=== PATIENT | female | born 1945 | race African-American/Black ===

== ENCOUNTER 2017-09-23 16:34 | Emergency (ER) | payer MEDICARE, SELFPAY ==
[2017-09-23 16:35] VITALS: BP 206/85; PULSE 74; RESP 16; TEMP 37; O2SAT 100; BMI 25.7
[2017-09-23] MEDS: Acetaminophen 325 MG Tablet 650 MG PO (17:21)
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
[2017-09-23 18:18] VITALS: RESP 18
== END 2017-09-23 18:19 | disposition home or self-care (01) ==
PROVIDERS: Emergency Provider Emergency Medicine; Family Provider Student in an Organized Health Care Education/Training Program; PCP Student in an Organized Health Care Education/Training Program
DX: S39.012A Strain of muscle, fascia and tendon of lower back, initial encounter (principal); V54.6XXA Passenger in pick-up truck or van injured in collision with heavy transport vehicle or bus in traffic accident, initial encounter; Y93.9 Activity, unspecified; Y92.9 Unspecified place or not applicable; E11.9 Type 2 diabetes mellitus without complications; Z90.49 Acquired absence of other specified parts of digestive tract; Z79.82 Long term (current) use of aspirin; Z79.84 Long term (current) use of oral hypoglycemic drugs
CPT/HCPCS: 72100; 99283

== ENCOUNTER → 2020-01-04 09:16 | Outpatient (CLI) | payer MEDICARE, SELFPAY ==
--- NOTE | 2020-01-04 09:24 | BI_ITS ---
MAMMOGRAPHY - BILATERAL DIAGNOSTIC REASON FOR EXAM: Female, 74 years old. 2 week history of right breast lump. PERTINENT HISTORY: Non-contributory. TECHNIQUE: Digital bilateral breast uyen (3D mammographic acquisition) in the CC and MLO projections. 2-D mediolateral oblique (MLO) and craniocaudad (CC) views of both breasts were obtained. CAD: Full Field Digital Mammography with Computer Added Detection was performed. COMPARISON: No comparison mammograms available at this time. If any prior films become available, an addendum to this report can be generated. FINDINGS: Breast Composition: The breasts are heterogeneously dense, which may obscure small masses. The palpable abnormality corresponds to a 1.9 cm x 1.1 cm nodule in the anterior upper lateral portion of the right breast. Correlation with ultrasound is recommended. Small benign-appearing bilateral axillary lymph nodes. No other significant abnormalities are identified. BI/DIAG MAMM W/CAD, BILAT IMPRESSION: The top of the abnormality corresponds to a 1.9 cm x 1.1 cm relatively well-defined nodule in the anterior upper lateral portion of the right breast. Correlation with ultrasound is recommended for further evaluation. ASSESSMENT CATEGORY: BIRADS Category 0: Incomplete. Need additional imaging evaluation. A letter regarding these results will be sent to the patient by the facility within 30 days. Approximately 10% of breast cancers are not detected by mammography. A normal mammogram should not delay biopsy of a clinically suspicious abnormality. Electronically Signed: Sam Baeza, at 10:25 EST , Service support ,
--- NOTE | 2020-01-04 09:24 | US_ITS ---
STUDY: ULTRASOUND BREAST - RIGHT REASON FOR EXAM: Female, 74 years old. Palpable lump in the right breast. TECHNIQUE: Axial and longitudinal images of the RIGHT breast were performed with a high resolution ultrasound transducer. # OF IMAGES: 27 COMPARISON: Comparison is made with prior mammogram done earlier today. FINDINGS: RIGHT Breast: The palpable abnormality corresponds to a 1.4 cm x 1.9 cm x 2.1 cm heterogeneous, irregular complex nodule at the 10 o''clock position of the breast at 10 cm from the nipple. A biopsy is recommended. US/Breast Limited Unilateral IMPRESSION: The palpable abnormality corresponds to a 1.4 cm x 1.9 cm x 2.1 cm complex irregular nodule at the 10 o''clock position of the breast at 10 cm from nipple. A biopsy is recommended. ASSESSMENT CATEGORY: BIRADS Category 4: Suspicious - Biopsy Should Be Considered. A letter regarding these results will be sent to the patient by the facility within 30 days. Electronically Signed: Sam Baeza, at 12:41 EST , Service support ,
== END ==
PROVIDERS: PCP Student in an Organized Health Care Education/Training Program; Referring Provider Nurse Practitioner Family; Visit Provider Nurse Practitioner Family
DX: N63.10 Unspecified lump in the right breast, unspecified quadrant (principal); R92.8 Other abnormal and inconclusive findings on diagnostic imaging of breast
CPT/HCPCS: 76642; 77062; 77066; G0279

== ENCOUNTER 2022-02-20 08:51 | Emergency (ER) | payer MEDICARE, SELFPAY ==
[2022-02-20 08:52] VITALS: BP 196/83; PULSE 72; RESP 18; TEMP 36.6; O2SAT 100; BMI 24.0
--- NOTE | 2022-02-20 09:58 | EDS_ITS ---
HPI HPI - URI History of Present Illness Chief Complaint: Cold Sx Informant: patient Onset/Context/Timing Onset: Days Timing: Continuous Current Severity: Mild Maximum Severity: Mild Associated Symptoms Associated Symptoms: Positive for Myalgias; Negative for Nausea, Vomiting, Shortness of Breath or Productive Cough Narrative Narrative: 76-year-old female history of diabetes and breast cancer. Says on Thursday she started having a hoarse voice with laryngitis. She had chills and sweating. No documented fever. Both her daughter and granddaughter or tested and were positive for influenza A. She denies any vomiting or diarrhea. No dysuria. No trouble swallowing or breathing. Prior similar symptoms: Yes Recent Illness/Hospitalization: No ROS ROS ED ROS Narrative Laryngitis. Chills. Body aches. Review of Systems ROS Unobtainable: Denies due to encephalopathy Constitutional Constitutional ED: Denies chills or fever(s) Eyes Eyes: Denies blurry vision ENT ENT ED: Denies ear pain Cardiovascular Cardiovascular: Denies chest pain Respiratory/Chest Respiratory/Chest: Denies cough or dyspnea Gastrointestinal Gastrointestinal: Denies abdominal pain, constipation, diarrhea, melena, nausea or vomiting Genitourinary Genitourinary ED: Denies dysuria Musculoskeletal Musculoskeletal: Denies arthralgias Integumentary Denies abscess Neurologic Neurologic: Denies headache(s) Psychiatric Psychiatric: Denies anxiety Endocrine Endocrinology: Denies cold intolerance Hematologic/Lymphatic Hematologic/Lymphatic: Denies easy bleeding Allergic/Immunologic Allergic/Immunologic ED: Denies mouth swelling or tongue swelling [facility] Medical History Diabetes Home Medications aspirin 81 mg chewable tablet 81 mg PO DAILY@0800 prophylaxis 01/01/13 [History Last Taken 1 Day Ago ~05/07/16] cyanocobalamin (vitamin B-12) 1,000 mcg/mL oral drops (Vitamin B-12) 1,000 mcg PO DAILY vitamin 01/01/13 [History Last Taken Unknown] enalapril maleate 10 mg tablet (Vasotec) 20 mg PO DAILY BP 01/01/13 [History Last Taken 1 Day Ago ~05/07/16] metformin 500 mg tablet,extended release 24 hr 500 mg PO BID DM 01/01/13 [History Last Taken 1 Day Ago ~05/07/16] crjmrvoaofle-Kt-bdee-minerals (Multiple Vitamin, Womens tablet) 1 ea PO DAILY 09/23/17 [History Last Taken Unknown] Allergy/AdvReac Type Severity Reaction Status Date / Time acetaminophen [From Vicodin] AdvReac Vomiting Verified 02/20/22 08:55 hydrocodone bitartrate AdvReac Vomiting Verified 02/20/22 08:55 [From Vicodin] Social History Smoking Status: Former smoker EXAM Physical Exam Narrative Exam Narrative: 76-year-old female no acute distress. Sitting upright in bed. Clinically looks well. H EENT exam unremarkable. TMs normal. Posterior pharynx normal. Moist because membranes. No stridor or drooling. She does have laryngitis. Neck nontender no lymphadenopathy. Lungs clear to auscultation bilaterally. Heart regular rhythm rate about 70 no murmur. Chest was nontender. Abdomen soft nontender. Back nontender. Moving all 4 extremities. No edema. Neurologically awake and alert with no focal motor deficits. Very benign exam. Const Vital Signs: 02/20/22 08:52 02/20/22 09:43 Temperature 98 F Temperature Source Temporal Pulse Rate 72 Respiratory Rate 18 Respiratory Effort Non-Labored Short of Breath Respiratory Depth Normal Blood Pressure 196/83 H Blood Pressure Mean 120 Pulse Ox 100 Oxygen Delivery Method Room Air Positive well nourished and well developed; Negative for obese, cachectic or contractures General Appearance ED: well developed and NAD; Negative for cachectic, contractures, cyanotic, diaphoretic or pallor Nutritional Appearance: Negative for cachectic or obese HEENT Reports moist mucous membranes; Denies dry mucous membranes normocephalic and atraumatic; Negative for scalp tenderness Face and Sinus: Negative for sinus tenderness Mouth ED: No dry mucous membranes Mouth: No dry mucous membranes Teeth and Gingiva: Negative for caries Throat: posterior oropharynx normal; Negative for tonsils abnormal or posterior oropharynx abnormal Eyes PERRL and EOMs intact bilaterally General Eye ED: Negative for pale conjunctiva or scleral icterus Neck no lymphadenopathy, supple, no meningeal signs and no JVD General: Negative for anterior neck swelling or lymphadenopathy Resp normal respiratory effort and clear to auscultation bilaterally Effort and Inspection: Negative for retractions Auscultation: Negative for rales, rhonchi or wheezes Cardio S2 normal heart sound and no murmurs Rate: regular rate; Negative for bradycardia or tachycardic Rhythm: regular rhythm; Negative for abnormal rhythm GI non-tender, non-distended and no masses Inspection: Negative for abdominal distention Palpation: soft; Negative for tender or guarding Back/Spine no CVA tenderness and normal ROM General Back: Negative for CVA tenderness Cervical Spine: Negative for cervical spine tenderness Thoracic Spine / Upper Back: Negative for thoracic spinal tenderness Lumbar Spine / Lower Back: Negative for lumbar spinal tenderness Sacrum: Negative for tenderness Extremity normal to inspection and full ROM General Extremety ED: Negative for cyanosis or tenderness General Extremity: Negative for cyanosis Neuro No oriented x3 Sensorium / Orientation: alert, oriented to person, oriented to place and oriented to time Sensory Exam: No sensory level loss detected Motor Exam: strength 5/5 throughout and general weakness Psych mental status grossly normal Appearance: Negative for other Attitude: No agitated Mood & Affect: Negative for depressed, anxious or tearful Skin General Skin Exam: Negative for jaundice or pallor Lesions: no lesions Rashes: no rashes Trauma: Negative for abrasion or laceration MDM MDM MDM Narrative Medical decision making narrative: 76-year-old female with viral laryngitis. Exam benign. Lungs clear. Pulse ox 100%. Influenza and COVID swabs are both negative. She will be treated at home for viral syndrome. Fluids and rest. Tylenol and Motrin. She does not need a chest x-ray and labs. Clinically she looks well and is hydrated. Lab Data Attestation: I reviewed the patient's lab results. Lab results narrative: Rapid COVID and influenza swabs negative. Discharge Plan Triage Chief Complaint: Cold Sx ED Provider: Fei Bustamante Dx/Rx/DC Orders Clinical Impression: Viral syndrome, Acute viral laryngitis Instructions: ED Viral Syndrome (Adult) Prescriptions: No Action enalapril maleate [Vasotec] 10 MG tablet 20 mg PO DAILY aspirin 81 MG Tab.Chew 81 mg PO DAILY@0800 metformin 500 MG tablet 500 mg PO BID cyanocobalamin (vitamin B-12) [Vitamin B-12] 1,000 MCG/ML Ml 1,000 mcg PO DAILY azxpqrvbcwro-Yh-exhb-minerals [Multiple Vitamin, Womens] 1 EACH tablet 1 ea PO DAILY Primary Care Provider: Emiliano Pelletier Referrals: Emiliano Pelletier DO [Primary Care Provider] - 1 Week if not improving Activity Restrictions/Additional Instructions: Plenty of fluids and rest. Warm salt water gargling. Tylenol for body aches and fevers. Follow-up with not improving. Return if worse. Disposition Disposition: Home, Self Care
== END 2022-02-20 10:16 | disposition home or self-care (01) ==
PROVIDERS: Emergency Provider Emergency Medicine; PCP Student in an Organized Health Care Education/Training Program; Visit Provider Emergency Medicine
DX: J04.0 Acute laryngitis (principal); E11.9 Type 2 diabetes mellitus without complications; Z79.84 Long term (current) use of oral hypoglycemic drugs; Z87.891 Personal history of nicotine dependence
CPT/HCPCS: 87428; 99282

== ENCOUNTER 2022-03-08 12:26 | Emergency (ER) | payer MEDICARE, SELFPAY ==
[2022-03-08 12:27] VITALS: BP 184/74; PULSE 93; RESP 16; TEMP 36.4; O2SAT 100; BMI 24.0
[2022-03-08 12:42] VITALS: BP 170/71; PULSE 78; RESP 16; O2SAT 98
--- NOTE | 2022-03-08 12:43 | EDS_ITS ---
HPI History of Present Illness HPI Narrative: Patient presents with left shoulder pain that has been getting worse over the past 2 days. Patient states it is gradually gotten worse. Patient denies any trauma or injury. Patient states the pain has been constant. Patient states the pain is aching. Patient states the pain is worse with movement. Patient states it is better with rest and relaxation. Patient admits to some tingling into her fingers of her left hand. Patient denies any weakness. Patient denies any nausea or vomiting. Patient denies any chest pain or shortness of breath. Chief Complaint: Upper Extremity Injury Informant: patient Onset/Context/Timing Onset: Days (2) Context: Gradual Onset Timing: Continuous Quality of Pain: Aching Location: Left shoulder Worsened by: Movement Relieved by: Rest, relaxation Associated Symptoms Associated Symptoms: Positive for Parasthesia; Negative for Weakness or Loss of Funtion [facility] Medical History (Updated 03/08/22 @ 15:[address] Butch Liu, DO) Diabetes Home Medications aspirin 81 mg chewable tablet 81 mg PO DAILY@0800 prophylaxis 01/01/13 [History Last Taken 1 Day Ago ~05/07/16] cyanocobalamin (vitamin B-12) 1,000 mcg/mL oral drops (Vitamin B-12) 1,000 mcg PO DAILY vitamin 01/01/13 [History Last Taken Unknown] enalapril maleate 10 mg tablet (Vasotec) 20 mg PO DAILY BP 01/01/13 [History Last Taken 1 Day Ago ~05/07/16] metformin 500 mg tablet,extended release 24 hr 500 mg PO BID DM 01/01/13 [History Last Taken 1 Day Ago ~05/07/16] kgihbeulujdk-Nk-eauh-minerals (Multiple Vitamin, Womens tablet) 1 ea PO DAILY 09/23/17 [History Last Taken Unknown] ibuprofen 600 mg tablet 600 mg PO Q8H PRN PRN pain #20 TABLETS 03/08/22 [Rx Last Taken Unknown] tramadol 50 mg tablet 50 mg PO Q4H PRN PRN Pain 3 days #20 tabs 03/08/22 [Rx Last Taken Unknown] Allergy/AdvReac Type Severity Reaction Status Date / Time acetaminophen [From Vicodin] AdvReac Vomiting Verified 03/08/22 12:28 hydrocodone bitartrate AdvReac Vomiting Verified 03/08/22 12:28 [From Vicodin] Surgical History (Updated 03/08/22 @ 13:[address] Butch Liu DO) History of coronary artery bypass graft Social History Smoking Status: Former smoker ROS ROS ED Constitutional Constitutional ED: Denies chills or fever(s) Eyes Eyes: Reports blurry vision; Denies diplopia ENT ENT ED: Denies rhinorrhea or sore throat Cardiovascular Cardiovascular: Denies chest pain or palpitations Respiratory/Chest Respiratory/Chest: Denies cough or dyspnea Gastrointestinal Gastrointestinal: Denies nausea or vomiting Genitourinary Genitourinary ED: Denies dysuria or hematuria Musculoskeletal Musculoskeletal: Reports back pain and neck pain Integumentary Denies abscess or rash Neurologic Neurologic: Denies headache(s) or weakness Allergic/Immunologic Allergic/Immunologic ED: Denies mouth swelling or urticaria EXAM Physical Exam Const Vital Signs: 03/08/22 12:27 Temperature 97.6 F L Temperature Source Temporal Pulse Rate 93 Respiratory Rate 16 Blood Pressure 184/74 H Blood Pressure Mean 110 Pulse Ox 100 Oxygen Delivery Method Room Air Positive well nourished and well developed General Appearance ED: well developed HEENT Reports moist mucous membranes Neck supple and no JVD Resp normal respiratory effort and clear to auscultation bilaterally Cardio regular rate, regular rhythm and no murmurs GI normal to inspection, nondistended, normoactive bowel sounds and non-tender Palpation: soft Extremity normal to inspection Extremity Narrative: There is tenderness to palpation over the left shoulder. This reproduces the patient's symptoms. There is no obvious deformity noted. There is no edema or ecchymosis. Radial pulses are equal bilaterally. Sensation was intact to light touch in the radial, median, ulnar, and axillary areas. Strength is 5/5 in the radial, median, and ulnar areas. General Extremety ED: Negative for edema or tenderness General Extremity: Negative for edema Neuro oriented x3, CN's II-XII intact bilaterally and no sensory deficits noted Sensorium / Orientation: alert Motor Exam: strength 5/5 throughout Psych mental status grossly normal Skin no rashes or lesions noted MDM MDM MDM Narrative Medical decision making narrative: Differential diagnosis includes musculoskeletal etiology. I think this is the most likely diagnosis. I do not feel this is cardiac in nature since it is worse with movement and it reproduces her symptoms and it is better with rest. X-rays of the left shoulder will be obtained to look for fracture, dislocation, and degenerative changes. Patient was given a dose of tramadol here. Radiography Diagnostic Testing: X-rays of the left shoulder were obtained. There are 4 views. On my independent interpretation, there is no acute fracture or dislocation. There are chronic changes. There is a calcification in the area superior and lateral to the humeral head. 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 Treatment and Re-Evaluation Narrative: Patient was advised of her findings. Patient was instructed to use ice to the area. Discharge Plan Triage Chief Complaint: Upper Extremity Injury ED Provider: Butch Liu Dx/Rx/DC Orders Clinical Impression: Left shoulder strain, Hypertension Instructions: ED Shoulder Sprain Prescriptions: New ibuprofen 600 mg tablet 600 mg PO Q8H PRN PRN (Reason: pain) Qty: 20 0RF tramadol 50 mg tablet 50 mg PO Q4H PRN PRN (Reason: Pain) 3 Days Qty: 20 0RF No Action enalapril maleate [Vasotec] 10 MG tablet 20 mg PO DAILY aspirin 81 MG tablet,chewable 81 mg PO DAILY@0800 metformin 500 MG tablet 500 mg PO BID cyanocobalamin (vitamin B-12) [Vitamin B-12] 1,000 MCG/ML drops 1,000 mcg PO DAILY znybugzjvssg-Hx-bufg-minerals [Multiple Vitamin, Womens] 1 EACH tablet 1 ea PO DAILY Primary Care Provider: Emiliano Pelletier Referrals: Emiliano Pelletier, [Primary Care Provider] - 5-7 Days Disposition Disposition: Home, Self Care
--- NOTE | 2022-03-08 14:30 | RAD_ITS ---
STUDY: X-RAY - LEFT SHOULDER REASON FOR EXAM: Female, 76 years old. PAIN, LIFTING AND PULLING INJURY TECHNIQUE: 4 view(s) of the shoulder. COMPARISON: None. FINDINGS: There is mild degenerative arthrosis of the glenohumeral articulation. Normal acromioclavicular joint. Normal acromion. Moderate foci of crescentic calcification at the greater tuberosity insertion site is compatible with sequela of calcific tendinitis. Normal humeral head and visualized proximal humerus. The soft tissue structures are unremarkable. There is no demonstrated fracture. Normal visualized pulmonary apex. RAD/Shoulder min 2 Views IMPRESSION: 1. No acute fracture of the shoulder Electronically Signed: Mick Guerrero MD at 14:55 EST ,
[2022-03-08] MEDS: traMADol 50 MG Tablet PO (14:38)
== END 2022-03-08 16:00 | disposition home or self-care (01) ==
PROVIDERS: Emergency Provider Emergency Medicine; PCP Student in an Organized Health Care Education/Training Program; Visit Provider Emergency Medicine
DX: S46.912A Strain of unspecified muscle, fascia and tendon at shoulder and upper arm level, left arm, initial encounter (principal); E11.9 Type 2 diabetes mellitus without complications; X58.XXXA Exposure to other specified factors, initial encounter; M54.9 Dorsalgia, unspecified; M54.2 Cervicalgia; I10 Essential (primary) hypertension; Z87.891 Personal history of nicotine dependence; Z79.82 Long term (current) use of aspirin; Z79.84 Long term (current) use of oral hypoglycemic drugs; Z79.899 Other long term (current) drug therapy; Z95.1 Presence of aortocoronary bypass graft
CPT/HCPCS: 73030; 99283

== ENCOUNTER 2022-09-30 16:55 | Emergency (ER) | payer MEDICARE, SELFPAY ==
[2022-09-30 16:55] VITALS: BP 200/85; PULSE 87; RESP 18; TEMP 36.4; O2SAT 99; BMI 23.6
--- NOTE | 2022-09-30 17:50 | RAD_ITS ---
INDICATION: INJURY EXAMINATION/TECHNIQUE: X-RAY - RIGHT XR Foot 3 VIEWS COMPARISON: FINDINGS: SOFT TISSUES: No soft tissue swelling or gas. No radiopaque foreign body. Vascular calcifications. BONES/JOINTS: Possible injury of the proximal phalanx second toe of questionable age. Plantar calcaneal spurring.. Normal alignment. Preservation of the joint space.. No sclerotic or destructive changes observed. RAD/Foot min 3 Views IMPRESSION: Possible injury of the proximal phalanx second toe of questionable age. Electronically Signed: Garo Allen DO at 18:08 EDT ,
[2022-09-30 20:33] VITALS: RESP 16
[2022-09-30 20:52] VITALS: BP 216/83
--- NOTE | 2022-09-30 20:53 | EDS_ITS ---
HPI History of Present Illness Chief Complaint: Laceration Informant: patient Narrative Narrative: Patient is a 76-year-old female presenting with injury to her right foot. Patient was wearing house slippers. She dropped a cast iron skillet onto her foot. She started bleeding immediately from the wound on the top of her foot. She was able to get the bleeding to stop. She came in for further evaluation. She has no other complaints at this time. Denies any numbness or tingling. Denies any significant pain except just at the laceration site. Was noted to be hypertensive on arrival but denies any chest pain, shortness of breath or difficulty breathing. Patient takes 81 mg aspirin daily. Tetanus Immunization: Unknown [facility] Medical History Diabetes Home Medications aspirin 81 mg chewable tablet 81 mg PO DAILY@0800 prophylaxis 01/01/13 [History Last Taken 1 Day Ago ~05/07/16] cyanocobalamin (vitamin B-12) 1,000 mcg/mL oral drops (Vitamin B-12) 1,000 mcg PO DAILY vitamin 01/01/13 [History Last Taken Unknown] enalapril maleate 10 mg tablet (Vasotec) 20 mg PO DAILY BP 01/01/13 [History Last Taken 1 Day Ago ~05/07/16] metformin 500 mg tablet,extended release 24 hr 500 mg PO BID DM 01/01/13 [History Last Taken 1 Day Ago ~05/07/16] xzsiurmzxoei-Nq-zmao-minerals (Multiple Vitamin, Womens tablet) 1 ea PO DAILY 09/23/17 [History Last Taken Unknown] ibuprofen 600 mg tablet 600 mg PO Q8H PRN PRN pain #20 TABLETS 03/08/22 [Rx Last Taken Unknown] tramadol 50 mg tablet 50 mg PO Q4H PRN PRN Pain 3 days #20 tabs 03/08/22 [Rx Last Taken Unknown] Allergy/AdvReac Type Severity Reaction Status Date / Time acetaminophen [From Vicodin] AdvReac Vomiting Verified 09/30/22 16:58 hydrocodone bitartrate AdvReac Vomiting Verified 09/30/22 16:58 [From Vicodin] Surgical History History of coronary artery bypass graft Social History Smoking Status: Former smoker ROS ROS ED Constitutional Constitutional ED: Denies chills or fever(s) Cardiovascular Cardiovascular: Denies chest pain Gastrointestinal Gastrointestinal: Denies nausea or vomiting Musculoskeletal Musculoskeletal: Denies arthralgias or myalgias Integumentary Reports other Details: right foot laceration Neurologic Neurologic: Denies headache(s) or weakness Hematologic/Lymphatic Hematologic/Lymphatic: Denies easy bleeding or easy bruising EXAM Physical Exam Const Vital Signs: 09/30/22 16:55 09/30/22 20:33 09/30/22 20:52 Temperature 97.5 F L Temperature Source Temporal Pulse Rate 87 Respiratory Rate 18 16 Blood Pressure 200/85 H 216/83 H Blood Pressure Mean 123 127 Pulse Ox 99 Oxygen Delivery Method Room Air 09/30/22 22:41 Temperature Temperature Source Pulse Rate Respiratory Rate 18 Blood Pressure Blood Pressure Mean Pulse Ox Oxygen Delivery Method Positive well nourished and well developed General Appearance ED: well developed and NAD HEENT Reports moist mucous membranes Neck supple Resp normal respiratory effort and clear to auscultation bilaterally Cardio regular rate, regular rhythm and no murmurs Cardio Narrative: 2+ DP pulses Extremity normal to inspection and full ROM Extremity Narrative: Right foot?no pinpoint point tenderness, no deformity, normal range of motion Skin Skin Narrative: 2 cm linear laceration to the dorsum of the right foot. The medial centimeter is a superficial abrasion and the lateral centimeter is a partial-thickness laceration with well approximated edges do separate slightly with tension. MDM MDM MDM Narrative Medical decision making narrative: Patient is evaluated for injury to her right foot. A protocol x-ray obtained shows a possible injury to the proximal phalanx second toe questionable age. She is not tender in this area and this is not where her injury is. Tetanus will be updated. Wound to be cleansed. We will recheck the patient's blood pressure however I believe this is asymptomatic hypertension. Wound repair options discussed such as sutures versus Dermabond. She has since again and I worry that the sutures will pull out. She is agreeable to Dermabond. Given wound care precautions as well as return precautions. Due to mechanism injury do not think she requires antibiotics. Radiography Diagnostic Testing: Clinical Impression(s) from Imaging Studies Foot X-Ray 09/30/22 17:50 IMPRESSION: Possible injury of the proximal phalanx second toe of questionable age. Electronically Signed: Garo Allen DO at 18:08 EDT Reading Location ID and State: [facility] / [place] Tel [phone], Service support , Discharge Plan Triage Chief Complaint: Laceration ED Provider: Maria Guadalupe Rocha Dx/Rx/DC Orders Clinical Impression: Need for Tdap vaccination, Laceration of foot, right Instructions: ED Laceration: Skin Adhesive Prescriptions: No Action enalapril maleate [Vasotec] 10 MG tablet 20 mg PO DAILY aspirin 81 MG tablet,chewable 81 mg PO DAILY@0800 metformin 500 MG tablet 500 mg PO BID Vitamin B-12 1,000 MCG/ML drops 1,000 mcg PO DAILY Multiple Vitamin, Womens 1 EACH tablet 1 ea PO DAILY ibuprofen 600 mg tablet 600 mg PO Q8H PRN PRN (Reason: pain) Qty: 20 0RF tramadol 50 mg tablet 50 mg PO Q4H PRN PRN (Reason: Pain) 3 Days Qty: 20 0RF Primary Care Provider: Emiliano Pellteier Referrals: Emiliano Pelletier DO [Primary Care Provider] - Activity Restrictions/Additional Instructions: Avoid applying any antibiotic ointment such as triple antibiotic ointment or bacitracin as it will dissolve the glue. Gently clean with soap and water as needed. The glue should flake off itself within the next week or so. If you d evelop increased pain, drainage or redness please return to the emergency room. Disposition Disposition: Home, Self Care Discharge Date/Time: 09/30/22 22:44
[2022-09-30] MEDS: Diphth,Pertuss(Acell),Tet Vac 0.5 ML Vial IM (22:33)
[2022-09-30 22:41] VITALS: RESP 18
== END 2022-09-30 22:44 | disposition home or self-care (01) ==
PROVIDERS: Emergency Provider Emergency Medicine; PCP Student in an Organized Health Care Education/Training Program; Visit Provider Emergency Medicine
DX: S99.921A Unspecified injury of right foot, initial encounter (principal); E11.9 Type 2 diabetes mellitus without complications; Z87.891 Personal history of nicotine dependence; Z79.84 Long term (current) use of oral hypoglycemic drugs; Z23 Encounter for immunization; W22.8XXA Striking against or struck by other objects, initial encounter
CPT/HCPCS: 12001; 73630; 90471; 90715; 99282

== ENCOUNTER 2023-12-14 12:30 | Inpatient (IN) | payer MEDICARE, SELFPAY ==
[2023-12-14] VITALS (7 sets, daily range): BP systolic 152–196; BP diastolic 65–106; PULSE 79–84; RESP 17–24; TEMP 36.2–37.1; O2SAT 95–100; BMI 21.3
--- NOTE | 2023-12-14 15:36 | CT_ITS ---
STUDY: CT ABDOMEN AND PELVIS WITH CONTRAST REASON FOR EXAM: Female, 78 years old. back pain, vomiting, breast mass RADIATION DOSAGE (If Supplied By Facility): CTDIvol = ( 8.98 ) mGy, DLP = ( 878.98 ) mGycm TECHNIQUE: Transaxial images were obtained from the dome of the diaphragm to the symphysis pubis without oral contrast. IV 100mL Isovue-370 was administered. Sagittal and coronal images were reconstructed. Individualized dose optimization techniques were used for this CT. COMPARISON: None. FINDINGS: Large right breast mass is noted. Heart size is normal. There is small pericardial effusion and coronary artery calcium. Liver is normal size. There is a small nodule in the right lobe likely metastatic. Bile ducts are not dilated. Normal gallbladder and extrahepatic biliary system. Normal spleen. Normal pancreas. Normal bilateral adrenal glands. There is mild dilatation of the right renal collecting system with markedly concentric thickening of the blount of the ureter to the level of the pelvis where there is a large complex right adnexal mass. Normal left kidney. There is thickening of the gastric folds and blount of stomach with narrowing at the gastroduodenal junction consistent with nonspecific gastroduodenitis. Normal small intestine. Normal colon. The appendix is visualized and appears normal. Atherosclerotic changes of the aorta without evidence for aneurysm. Normal inferior vena cava. Normal retroperitoneum. Normal urinary bladder. There is a small amount of free fluid in the pelvis Normal abdominal wall. Lumbar spine demonstrates mild spondylosis Lytic destructive lesion of T9 noted consistent with metastasis CT/Abdomen/Pelvis W IV Cont ONLY IMPRESSION: Findings consistent with nonspecific gastroduodenitis. 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
--- NOTE | 2023-12-14 15:36 | CT_ITS ---
STUDY: CTA CHEST REASON FOR EXAM: Female, 78 years old. right sided chest pain, breast mass RADIATION DOSAGE (If Supplied By Facility): CTDIvol = ( 8.98 ) mGy, DLP = ( 878.98 ) mGycm TECHNIQUE: The examination was performed with the intravenous administration of IV 100mL Isovue-370. Post-processing of the angiographic images was performed, with multiplanar reformation and 3D reconstruction. Individualized dose optimization techniques were used for this CT. COMPARISON: None. FINDINGS: Normal enhancement of the main pulmonary artery and right and left pulmonary arteries. Normal enhancement of the bilateral peripheral pulmonary arteries. There is no demonstrated pulmonary embolism. Mild atherosclerotic change of the aorta without evidence for aneurysm. There is no demonstrated aortic dissection. Heart is mildly enlarged. There is small pericardial effusion and multifocal coronary artery calcification. Normal mediastinum. Normal hilar regions. Normal visualized trachea and bronchi. The lungs are well expanded. Normal pulmonary parenchyma. Normal pleura. There is a large mass in the right breast as well as diffuse edematous changes as well as multiple mildly enlarged axillary node There is a large destructive lesion involving the right lateral body of T9 involving the posterior arch and the right ribs with probable tumor invasion of the spinal canal consistent with metastatic disease.. There is also destructive lesion involving the right scapula also metastatic Normal visualized upper abdomen. CT/CTA Chest W/WO Contrast IMPRESSION: No acute cardiopulmonary pathology ASHD without evidence for aortic aneurysm or dissection.. No evidence for pulmonary embolus Findings consistent with known right breast carcinoma, axillary nodes right scapular metastasis and extensive metastasis of T9 with probable spinal canal invasion of tumor. MRI with contrast would be helpful for more definitive evaluation Electronically Signed: Kwaku Carrillo MD at 18:54 EDT ,
--- NOTE | 2023-12-14 15:37 | EKG12_ITS ---
Test Reason : CHEST PAIN Blood Pressure : / mmHG Vent. Rate : 090 BPM Atrial Rate : 090 BPM P-R Int : 198 ms QRS Dur : 066 ms QT Int : 320 ms P-R-T Axes : 036 -08 071 degrees QTc Int : 391 ms Normal sinus rhythm Low voltage QRS Cannot rule out Anterior infarct , age undetermined Abnormal ECG Confirmed by JUAN DIEGO KNIGHT, IZA ([id number]), mapping editor KANDIS STEPHENS ([id number]) on 12/15/2023 8:03:42 AM Referred By: Confirmed By:IZA ADAMSON MD
--- NOTE | 2023-12-14 15:42 | ED.VIS.CHEST ---
HPI History of Present Illness Chief Complaint: Chest Other Informant: patient Narrative Narrative: Patient is a 78 year old female with history of untreated right sided breat cancer presenting for worsening right-sided pain, breast pain and back pain. Patient lives at home with her son. Her PCP has prescribed her oxycodone. She notes that she is been having worsening pain over the past 2 months. She has been having increasing pain and has had to go up on her Tylenol and oxycodone. She states that yesterday she took 2 exercise Tylenol and three 5 mg oxycodone. She notes that she has had about a 15 pound unintentional weight loss has not been eating or drinking well. Denies night sweats currently. Does report that she has had lightheadedness and dizziness. Saw her PCP 5 days ago for worsening right sided flank pain which was thought to be secondary to breast cancer. In the notes (reviewed on [employer]) she had been referred to oncology and surgery as well as a breast surgeon over the past 5 years but had declines any type of intervention. Per the notes she is not interested in any type of chemotherapy or radiation but is considering seeing breast surgery/general surgery for options. Is having more pain. Was not willing to consider palliative or hospice care. Was prescribed oxycodone 5 mg for pain control. States yesterday she did have an episode of vomiting but thinks is because she took her medication on empty stomach. Does had some nausea. Does not report any black or blood in her stool. [facility] Medical History (Updated 12/15/23 @ 00:[address] Maria Guadalupe Rocha, DO) Hypertension Breast cancer Diabetes Home Medications ?Medication ?Instructions ?Recorded ?Last Taken ?Type aspirin 81 mg chewable tablet 81 mg PO DAILY@0800 prophylaxis 01/01/13 1 Day Ago History ~05/07/16 cyanocobalamin (vitamin B-12) 1,000 mcg PO DAILY vitamin 01/01/13 Unknown History 1,000 mcg/mL oral drops (Vitamin B-12) fasieorhrosd-Fc-yrbo-minerals 1 ea PO DAILY 09/23/17 Unknown History (Multiple Vitamin, Womens tablet) ibuprofen 600 mg tablet 600 mg PO Q8H PRN PRN pain #20 03/08/22 Unknown Rx TABLETS tramadol 50 mg tablet 50 mg PO Q4H PRN PRN Pain 3 days 03/08/22 Unknown Rx #20 tabs enalapril maleate 20 mg tablet 20 mg PO BID BP 12/14/23 Unknown History ferrous sulfate 140 mg (45 mg 140 mg PO DAILY SUPPLEMENT 12/14/23 Unknown History iron) tablet,extended release (Slow Release Iron) meloxicam 15 mg tablet 15 mg PO DAILY PRN pain 12/14/23 Unknown History metformin 1,000 mg tablet 1,000 mg PO BID DM 12/14/23 Unknown History oxycodone 5 mg tablet 5 mg PO Q8H PRN PRN severe pain 12/14/23 Unknown History Allergy/AdvReac Type Severity Reaction Status Date / Time acetaminophen (From Vicodin) AdvReac Vomiting Verified 12/14/23 12:38 hydrocodone bitartrate (From AdvReac Vomiting Verified 12/14/23 12:38 Vicodin) Surgical History History of coronary artery bypass graft Social History household members: family Smoking Status: Former smoker ROS ROS ED Constitutional Constitutional ED: Reports weight loss; Denies chills or fever(s) ENT ENT ED: Denies sore throat Cardiovascular Cardiovascular: Reports as per HPI and chest pain; Denies palpitations or racing heartbeat Respiratory/Chest Respiratory/Chest: Reports dyspnea; Denies cough Gastrointestinal Gastrointestinal: Reports nausea and vomiting Musculoskeletal Musculoskeletal: Reports back pain and myalgias Integumentary Reports rash Neurologic Neurologic: Reports weakness; Denies paresthesias Hematologic/Lymphatic Hematologic/Lymphatic: Denies easy bleeding or easy bruising EXAM Physical Exam Const Vital Signs: 12/14/23 12:31 12/14/23 15:34 12/14/23 15:35 Temperature 97.2 F L Temperature Source Temporal Pulse Rate 82 82 Respiratory Rate 20 H 24 H Respiratory Effort Normal Non-Labored Blood Pressure 186/100 H 180/71 H Blood Pressure Mean 128 107 Pulse Ox 100 Oxygen Delivery Method Room Air 12/14/23 17:08 12/14/23 19:00 12/14/23 20:39 Temperature 98.8 F Temperature Source Pulse Rate 84 79 79 Respiratory Rate 17 18 17 Respiratory Effort Blood Pressure 152/106 H 196/77 H 163/75 H Blood Pressure Mean 121 116 104 Pulse Ox 95 95 95 Oxygen Delivery Method Room Air Room Air 12/14/23 21:00 Temperature Temperature Source Pulse Rate 82 Respiratory Rate 18 Respiratory Effort Blood Pressure 165/65 H Blood Pressure Mean 98 Pulse Ox 95 Oxygen Delivery Method Room Air Positive well nourished Constitutional Narrative: Frail, uncomfortable appearing HEENT Reports dry mucous membranes normocephalic and atraumatic Mouth ED: Yes dry mucous membranes Mouth: dry mucous membranes Eyes PERRL and EOMs intact bilaterally Neck supple and no JVD Chest Wall Chest Narrative: Patient has pewter orange appearance to the right outer lower quadrant of the breast. On palpation there are multiple hard firm nonmobile masses. This is highly concerning for metastat her breast cancer. Resp normal respiratory effort and clear to auscultation bilaterally Cardio regular rate, regular rhythm and no murmurs GI normal to inspection, nondistended, normoactive bowel sounds, soft to palpation and non-tender Back/Spine no CVA tenderness Back/Spine Narrative: Lumbar tenderness at approximately L1-L4 Cervical Spine: Negative for cervical spine tenderness Extremity normal to inspection General Extremety ED: Negative for edema or pulses abnormal General Extremity: Negative for edema or pulses abnormal Neuro oriented x3 Sensorium / Orientation: awake and alert Motor Exam: general weakness Skin Skin Narrative: Erythema but no warmth and dimpling of the skin of the right lower outer breast MDM MDM MDM Narrative Medical decision making narrative: Patient's evaluated for worsening right sided chest/breast pain. Has a history of breast cancer does not been treated and physical exam highly concerning for advanced breast cancer. Patient also clinically appears dehydrated with dry mucosal membranes. Vital signs significant for hypertension which does appear to be chronic for the patient. Will give the patient small bolus of IV fluids, morphine and Zofran and obtain CT imaging to evaluate for pulmonary emboli as well as masses as I suspect this is the cause of her pain. Patient is redosed with pain medication. She is resting more comfortably now. CBC shows a mild microcytic anemia with a hemoglobin of 10.8. CMP largely normal. Urinalysis showed [address] imaging does show a large of breast mass with what looks to be metastatic axillary nodes, right scapular metastasis and extensive processes of T9 with probable spinal Involvement of tumor. In addition CT of abdomen shows what appears to be hepatic metastasis, compression of the right ureter possibly due to metastatic disease or due to extrinsic compression from a complex cystic mass of the right adnexa. I reviewed the results with the patient and her daughter. Discussed goals of care. At this point patient does not really seem to know what she wants except that she would like to be able to function at home again. She is interested in social work resources. She wants to know if surgery is an option as she was opposed to see Dr. Griffin today but did not make the appointment. I spoke with Dr. Briceno as patient does not seem to be established with [facility] oncology for this. He states he be happy see the patient on consult. I spoke with Dr. Calderon who states that if needed she could do a bedside biopsy for definitive diagnosis. Discussed with patient's options include hospice evaluation, palliative care, palliative chemoradiation and possibly more aggressive treatment however not certain if that would be recommended given her advanced disease. Patient verbalized agreement understand with this. At this time she does not feel safe going home especially due to her degree of pain and unable to care for herself and will require admission. Case customization, Dr. Chappell. History & Record Review Additional record(s) reviewed:: Prior outpatient record Lab Data Attestation: I reviewed the patient's lab results. Labs: Laboratory Results - last 24 hr 12/14/23 12/14/23 12/14/23 16:06 17:51 20:55 WBC 6.6 RBC 4.10 L Hgb 10.8 L Hct 34.3 L MCV 83.7 MCH 26.3 L MCHC 31.5 L RDW Std Deviation 46.2 H RDW Coeff of Annika 15.0 H Plt Count 334 MPV 10.2 Immature Gran % (Auto) 0.200 Neut % (Auto) 60.2 Lymph % (Auto) 31.8 Cassia % (Auto) 6.6 Eos % (Auto) 0.9 Baso % (Auto) 0.3 Absolute Neuts (auto) 4.0 Absolute Lymphs (auto) 2.11 Nucleated RBC % 0 PT 12.8 INR 1.0 Sodium 137 Potassium 4.1 Chloride 107 Carbon Dioxide 24.0 Anion Gap 6 BUN 12 Creatinine 0.70 Est GFR (MDRD) Af Amer 104 Est GFR (MDRD) Non-Af 86 BUN/Creatinine Ratio 17.2 Glucose 113 H Calcium 10.0 Total Bilirubin 0.40 AST 27 ALT 17 Alkaline Phosphatase 84 Troponin I High Sens 30 Total Protein 8.1 Albumin 3.7 Globulin 4.4 H Albumin/Globulin Ratio 0.8 L Urine Color Yellow Urine Clarity Clear Urine pH 7.0 Ur Specific [place] 1.005 Urine Protein 15 H Urine Glucose (UA) Normal Urine Ketones 5 H Urine Occult Blood Negative Urine Nitrite Negative Urine Bilirubin Negative Urine Urobilinogen Normal Ur Leukocyte Esterase Negative Urine RBC 0 SEEN Urine WBC 0 SEEN Ur Squamous Epith Cells 0 SEEN Urine Bacteria 0 SEEN Urine Mucus 0 SEEN Radiography Diagnostic Testing: Clinical Impression(s) from Imaging Studies Abdomen/Pelvis CT 12/14/23 15:36 IMPRESSION: Findings consistent with nonspecific gastroduodenitis. No evidence for small bowel obstruction Mild right renal dilatation secondary to markedly narrowed ureter due to thickening of the blount possibly metastatic or due to extrinsic compression by complex cystic mass right in the adnexa Probable small hepatic metastasis which may be further assessed with MRI if indicated Electronically Signed: Kwaku Carrillo MD at 19:06 EDT , Chest CTA 12/14/23 15:36 IMPRESSION: No acute cardiopulmonary pathology ASHD without evidence for aortic aneurysm or dissection.. No evidence for pulmonary embolus Findings consistent with known right breast carcinoma, axillary nodes right scapular metastasis and extensive metastasis of T9 with probable spinal canal invasion of tumor. MRI with contrast would be helpful for more definitive evaluation Electronically Signed: Kwaku Carrillo MD at 18:54 EDT , Rhythm Strip Rhythm Strip: Sinus Rhythm Rate: 90 Ectopy: None EKG Initial EKG: Attestation: I personally reviewed and interpreted this EKG as follows: Interpretation: Sinus Rhythm Comments: Normal sinus rhythm at a rate of 90 bpm Normal axis Normal intervals Low voltage QRS Normal ST segments Prior EKG tracings: available for review Prior: Unchanged (Patient no longer tachycardic) Management Discussion w/another healthcare provider: Hospitalist and Twister Tender Discharge Plan Dx/Rx/DC Orders Clinical Impression: Cancer related pain, Metastatic disease, Physical debility Disposition Disposition: Acute Care Hospital [facility] Discharge Date/Time: 12/14/23 21:51
[2023-12-14] MEDS: 0.9% Normal Saline (500mL Bag) 500 ML 1000 ML IV (16:05)
[2023-12-14] MEDS: Morphine 4 MG/ML Syringe IV ×2 (16:06→19:28)
[2023-12-14] MEDS: Ondansetron 4 MG/2 ML Vial IV ×2 (16:06→19:28)
[2023-12-14 16:14] LABS: Absolute Lymphocyte Count 2.11 X10^3/uL (0.83-4.51); Basophil# 0.02 X10^3/uL; Basophil% 0.3 % (0-1); Eosinophil# 0.06 X10^3/uL; Eosinophils% 0.9 % (0-5); Hematocrit 34.3 % (37-47); Hemoglobin 10.8 g/dL (12.0-15.0); Lymphocyte # 2.11 X10^3/ul (0.83-4.51); Lymphocyte % 31.8 % (19-41); Mean Corp Hgb Conc 31.5 g/dL (32-36); Mean Corpuscular Hgb 26.3 pg (27.0-32.0); Mean Corpuscular Volume 83.7 fL (81-99); Mean Platelet Vol. 10.2 fl (6.2-12.0); Monocyte# 0.44 X10^3/uL; Monocyte% 6.6 % (0-10); NRBC Flagged by Analyzer 0 % (0-5); Neutrophil # 3.99 X10^3/uL (2.7-7.7); Neutrophil % 60.2 % (47-70); Platelet Count 334 K/mm3 (150-450); RBC Distribution Width SD 46.2 fl (35.1-43.9); White Blood Count 6.6 K/mm3 (4.4-11.0)
[2023-12-14 16:33] LABS: Prothrombin Time (Protime)PT. 12.8 SECONDS (11.7-14.9)
[2023-12-14 16:42] LABS: ALB/GLOB Ratio 0.8 RATIO (0.9-2.4); AST(SGOT) 27 U/L (15-37); Alanine Aminotransfer ALT/SGPT 17 U/L (13-56); Albumin, Serum 3.7 g/dL (3.2-5.0); Alkaline Phosphatase 84 U/L (45-117); Anion Gap 6 (5-15); BUN 12 mg/dL (7-18); BUN/Creat Ratio 17.2 RATIO (10-20); Chloride 107 mmol/L (98-107); EST Glomerular Filtration Rate 86 mL/min (>60); Est Glom Filt Rate - Afr Amer 104 mL/min (>60); Globulin 4.4 g/dL (2.2-4.2); Glucose 113 mg/dL (74-106); Potassium 4.1 mmol/L (3.5-5.1); Protein, Total 8.1 g/dL (6.4-8.2); Sodium Level 137 mmol/L (136-145)
[2023-12-14 17:56] LABS: Bacteria 0 SEEN /hpf (None Seen); Mucous, Urine 0 SEEN /hpf (<or=2+); Red Blood Cells-Urine 0 SEEN /hpf (0-5); Squamous Epithelial Cells - UA 0 SEEN /hpf (5-10); White Blood Cells 0 SEEN /hpf (0-5)
[2023-12-14 18:11] LABS: Color, Urine Yellow (Yellow); Glucose, Dipstick Normal (Normal); Ketone-Dipstick 5 mg/dl (Negative); Leukocyte Esterase-Dipstick Negative /ul (Negative); Nitrite-Dipstick Negative (Negative); Occult Blood-Urine Negative /ul (Negative); Protein-Dipstick 15 mg/dl (Negative); Specific Gravity, Urine 1.005 (1.002-1.030); Urine Bilirubin Dipstick Negative (Negative); Urine Clarity Clear (Clear); Urine Urobilinogen Normal (Normal)
--- NOTE | 2023-12-14 21:21 | HP.PCM.HOS_ITS ---
HPI - General General Date of Admission: 12/14/23 Date of Service: 12/14/23 Chief Complaint: Upper back pain, right-sided chest pain, shoulder and shoulder blade for 3-day. HPI Narrative CISCO CORTEZ, is a 78 F came to the ED for moderate to severe pain at multiple locations. Patient has diagnosed right-sided breast cancer by biopsy in [address] Tiana Griffin, [facility]. Patient was advised to follow-up oncologist but it seems as patient does not remember that she has not followed with any oncologist as she did not want radiotherapy or chemotherapy. For last 3 days patient having severe pain mainly at right thoracic spine/flank, right shoulder, shoulder blade and right-sided chest pain. She describes her pain at rest about 4-5/10 but on movement it goes to 10/10 in intensity. Saw her PCP and was prescribed oxycodone but she started vomiting. She vomited 3 times times in the last 2 days mainly gastric in nature. Denies any fever or chills. Denies shortness of breath or left-sided chest pain. She denies history of CAD or cardiac stent or other cardiac. She lost about 15 pounds in the last 2 to 3 months and feeling generalized weakness. She has history of smoking started at the age of 18 and quit at age of 30, less than a pack per day [facility] Medical History Breast cancer Diabetes Home Medications ?Medication ?Instructions ?Recorded ?Last Taken ?Type aspirin 81 mg chewable tablet 81 mg PO DAILY@0800 prophylaxis 01/01/13 1 Day Ago History ~05/07/16 cyanocobalamin (vitamin B-12) 1,000 mcg PO DAILY vitamin 01/01/13 Unknown History 1,000 mcg/mL oral drops (Vitamin B-12) rrqfxqiepbrv-Zv-wkek-minerals 1 ea PO DAILY 09/23/17 Unknown History (Multiple Vitamin, Womens tablet) ibuprofen 600 mg tablet 600 mg PO Q8H PRN PRN pain #20 03/08/22 Unknown Rx TABLETS tramadol 50 mg tablet 50 mg PO Q4H PRN PRN Pain 3 days 03/08/22 Unknown Rx #20 tabs enalapril maleate 20 mg tablet 20 mg PO BID BP 12/14/23 Unknown History ferrous sulfate 140 mg (45 mg 140 mg PO DAILY SUPPLEMENT 12/14/23 Unknown History iron) tablet,extended release (Slow Release Iron) meloxicam 15 mg tablet 15 mg PO DAILY PRN pain 12/14/23 Unknown History metformin 1,000 mg tablet 1,000 mg PO BID DM 12/14/23 Unknown History oxycodone 5 mg tablet 5 mg PO Q8H PRN PRN severe pain 12/14/23 Unknown History Allergy/AdvReac Type Severity Reaction Status Date / Time acetaminophen (From Vicodin) AdvReac Vomiting Verified 12/14/23 12:38 hydrocodone bitartrate (From AdvReac Vomiting Verified 12/14/23 12:38 Vicodin) Surgical History History of coronary artery bypass graft Social History household members: family Smoking Status: Former smoker ROS ROS Narrative Constitutional: Reports fatigue and weakness. Loss of weight no fever. HEENT: Reports systems reviewed and no addt'l complaints, except as documented Respiratory/Chest: No acute shortness of breath or respiratory distress or wheezing. CVS: Right-sided chest pain. Rest as described in HPI Gastrointestinal: Denies coffee ground emesis, hematemesis. No abdominal pain Genitourinary: Denies burning urination or new urinary tract symptoms Musculoskeletal: As described in HPI. Required support for walking last 3 days. Neurologic: Denies seizure-like symptoms. No strokelike symptoms skin: No ulcer. No rash Endocrinology: Reports systems reviewed and no addt'l complaints, except as documented Hematologic/Lymphatic: Reports systems reviewed and no addt'l complaints, except as documented Rest 14 ROS are negative except as mentioned in HPI Vital Signs Vital Signs Vital Signs: 12/14/23 12:31 12/14/23 15:34 12/14/23 15:35 Temperature 97.2 F L Temperature Source Temporal Pulse Rate 82 82 Respiratory Rate 20 H 24 H Respiratory Effort Normal Non-Labored Blood Pressure 186/100 H 180/71 H Blood Pressure Mean 128 107 Pulse Ox 100 Oxygen Delivery Method Room Air 12/14/23 17:08 12/14/23 19:00 12/14/23 20:39 Temperature 98.8 F Temperature Source Pulse Rate 84 79 79 Respiratory Rate 17 18 17 Respiratory Effort Blood Pressure 152/106 H 196/77 H 163/75 H Blood Pressure Mean 121 116 104 Pulse Ox 95 95 95 Oxygen Delivery Method Room Air Room Air 12/14/23 21:00 Temperature Temperature Source Pulse Rate 82 Respiratory Rate 18 Respiratory Effort Blood Pressure 165/65 H Blood Pressure Mean 98 Pulse Ox 95 Oxygen Delivery Method Room Air Physical Exam Narrative General: Alert, Oriented x3, Cooperative HEENT: Atraumatic, PERRLA, EOMI, Normocephalic Oral: Oral mucosa dry. No Gingival or Mucosal Lesions/ Ulcerations Neck: Supple, No JVD, Negative Carotid Bruits Chest wall/Lungs: Breast was not examined. As per ER physician who examined, Dr. Rocha it was PUD origin with no ulcer. Air entry diminished in bilateral lung bases. No crepitation/rhonchi Cardiovascular: Regular rate, Regular Rhythm, Normal S1, Normal S2, No M/G/R Abdomen: Bowel Sounds Present, Soft, Non Tender, Non-Distended : No dysuria. No renal angle tenderness. No suprapubic tenderness. Extremities: No edema, Capillary Refill Less than 3 Seconds Skin: No rashes, No breakdown Musculoskeletal: No Tenderness to Palpation of Joints or Extremities. Muscle strength 4+/5 at knees and hip joints Neurological: Cranial nerves II-XII grossly intact, DTR 2+/4. No acute focal neurological deficit. Psych/Mental Status: Flat affect Results Lab / Micro Data 12/14/23 16:06 12/14/23 16:06 Labs: Laboratory Results - last 24 hr 12/14/23 16:06: WBC 6.6, RBC 4.10 L, Hgb 10.8 L, Hct 34.3 L, MCV 83.7, MCH 26.3 L, MCHC 31.5 L, RDW Std Deviation 46.2 H, RDW Coeff of Annika 15.0 H, Plt Count 334, MPV 10.2, Immature Gran % (Auto) 0.200, Neut % (Auto) 60.2, Lymph % (Auto) 31.8, Heard % (Auto) 6.6, Eos % (Auto) 0.9, Baso % (Auto) 0.3, Absolute Neuts (auto) 4.0, Absolute Lymphs (auto) 2.11, Nucleated RBC % 0, PT 12.8, INR 1.0, Sodium 137, Potassium 4.1, Chloride 107, Carbon Dioxide 24.0, Anion Gap 6, BUN 12, Creatinine 0.70, Est GFR (MDRD) Af Amer 104, Est GFR (MDRD) Non-Af 86, BUN/Creatinine Ratio 17.2, Glucose 113 H, Calcium 10.0, Total Bilirubin 0.40, AST 27, ALT 17, Alkaline Phosphatase 84, Total Protein 8.1, Albumin 3.7, G lobulin 4.4 H, Albumin/Globulin Ratio 0.8 L 12/14/23 17:51: Urine Color Yellow, Urine Clarity Clear, Urine pH 7.0, Ur Specific [place] 1.005, Urine Protein 15 H, Urine Glucose (UA) Normal, Urine Ketones 5 H, Urine Occult Blood Negative, Urine Nitrite Negative, Urine Bilirubin Negative, Urine Urobilinogen Normal, Ur Leukocyte Esterase Negative, Urine RBC 0 SEEN, Urine WBC 0 SEEN, Ur Squamous Epith Cells 0 SEEN, Urine Bacteria 0 SEEN, Urine Mucus 0 SEEN Rhythm Strip Rhythm Strip: Sinus Rhythm Rate: 90 Ectopy: None Imaging Radiology Impression Abdomen/Pelvis CT 12/14/23 15:36 IMPRESSION: Findings consistent with nonspecific gastroduodenitis. No evidence for small bowel obstruction Mild right renal dilatation secondary to markedly narrowed ureter due to thickening of the blount possibly metastatic or due to extrinsic compression by complex cystic mass right in the adnexa Probable small hepatic metastasis which may be further assessed with MRI if indicated Electronically Signed: Kwaku Carrillo MD at 19:06 EDT , Chest CTA 12/14/23 15:36 IMPRESSION: No acute cardiopulmonary pathology ASHD without evidence for aortic aneurysm or dissection.. No evidence for pulmonary embolus Findings consistent with known right breast carcinoma, axillary nodes right scapular metastasis and extensive metastasis of T9 with probable spinal canal invasion of tumor. MRI with contrast would be helpful for more definitive evaluation Electronically Signed: Kwaku Carrillo MD at 18:54 EDT , Assessment & Plan Assessment/Plan (1) Cancer related pain: PLAN: Plan This is [id number] female being admitted for pain control most likely from metastatic deposits from breast cancer 1. Acute exacerbation of pain at multiple locations: Patient is being admitted on [facility] floor. I will add Ringer lactate ordered for dehydration. Tylenol and oxycodone for pain control and Zofran for nausea/vomiting. PT and OT ordered. 2. Metastatic breast cancer with widespread metastasis: As it seems from the MyChart review from the patient portal shown by the daughter, patient has right breast biopsy in 2020 which was estrogen negative tumor. CTA chest done in ED shows no acute cardiopulmonary pathology or evidence of aortic aneurysm or dissection. No evidence for pulmonary embolism. Finding consistent with known right breast carcinoma, axillary nodes, right scapular metastasis, extensive metastasis of T9 with prevalently spinal canal invasion of the tumor. First troponin normal. Twelve-lead EKG shows normal sinus rhythm, low voltage QRS at 90 bpm. Second troponin pending. ER physician consulted Dr. Briceno 3. Right thoracic spine pain: CT chest/abdomen/pelvis shows large destructive lesion involving the right lateral body of T9 involving posterior attic, right wrist probable tumor invasion with spinal canal consistent with metastatic disease. It also shows finding consistent with nonspecific gastroduodenitis. 4. DM type II: Glucose in BMP is 113. Patient on metformin, hold it. Accu- Chek before meals and at bedtime with Humalog sliding scale coverage and hypoglycemia protocol. DVT prophylaxis, high risk: Lovenox 40 mg subcu daily. Living will/advanced directive/end of life care: Patient does not have living will or advanced directive. Her daughter present in the ER is next to kin. After discussion of benefits/risks procedures involved with full code, DNR CC arrest and DNR CC, the patient opted for full code. Patient does want artificial life support including intubation, tube feed, ventilator and/chest compression, central venous catheter, vasopressor and DC shock if needed Total time spent in [id number] encounter in discussion of advanced directive 17 minutes. Laboratory Results 12/14/23 16:06: WBC 6.6, RBC 4.10 L, Hgb 10.8 L, Hct 34.3 L, MCV 83.7, MCH 26.3 L, MCHC 31.5 L, RDW Std Deviation 46.2 H, RDW Coeff of Annika 15.0 H, Plt Count 334, MPV 10.2, Immature Gran % (Auto) 0.200, Neut % (Auto) 60.2, Lymph % (Auto) 31.8, Heard % (Auto) 6.6, Eos % (Auto) 0.9, Baso % (Auto) 0.3, Absolute Neuts (auto) 4.0, Absolute Lymphs (auto) 2.11, Nucleated RBC % 0, PT 12.8, INR 1.0, Sodium 137, Potassium 4.1, Chloride 107, Carbon Dioxide 24.0, Anion Gap 6, BUN 12, Creatinine 0.70, Est GFR (MDRD) Af Amer 104, Est GFR (MDRD) Non-Af 86, BUN/Creatinine Ratio 17.2, Glucose 113 H, Calcium 10.0, Total Bilirubin 0.40, AST 27, ALT 17, Alkaline Phosphatase 84, Total Protein 8.1, Albumin 3.7, G lobulin 4.4 H, Albumin/Globulin Ratio 0.8 L 12/14/23 17:51: Urine Color Yellow, Urine Clarity Clear, Urine pH 7.0, Ur Specific [place] 1.005, Urine Protein 15 H, Urine Glucose (UA) Normal, Urine Ketones 5 H, Urine Occult Blood Negative, Urine Nitrite Negative, Urine Bilirubin Negative, Urine Urobilinogen Normal, Ur Leukocyte Esterase Negative, Urine RBC 0 SEEN, Urine WBC 0 SEEN, Ur Squamous Epith Cells 0 SEEN, Urine Bacteria 0 SEEN, Urine Mucus 0 SEEN 12/14/23 20:55: Troponin I High Sens 30 Clinical Impression(s) from Imaging Studies Abdomen/Pelvis CT 12/14/23 15:36 IMPRESSION: Findings consistent with nonspecific gastroduodenitis. No evidence for small bowel obstruction Mild right renal dilatation secondary to markedly narrowed ureter due to thickening of the blount possibly metastatic or due to extrinsic compression by complex cystic mass right in the adnexa Probable small hepatic metastasis which may be further assessed with MRI if indicated Electronically Signed: Kwaku Carrillo MD at 19:06 EDT , Chest CTA 12/14/23 15:36 IMPRESSION: No acute cardiopulmonary pathology ASHD without evidence for aortic aneurysm or dissection.. No evidence for pulmonary embolus Findings consistent with known right breast carcinoma, axillary nodes right scapular metastasis and extensive metastasis of T9 with probable spinal canal invasion of tumor. MRI with contrast would be helpful for more definitive evaluation Electronically Signed: Kwaku Carrillo MD at 18:54 EDT Reading Location ID and State: [facility] / [place] Tel , Service support , Charges/Coding Visit Charges Inpatient E&M: 03607 Init Hosp L3 Procedures Hospitalists Procedures: 23724 Advncd Care Plan 30 Min
[2023-12-14 21:23] LABS: Troponin-I HS (w/2H Reflex) 30 pg/mL (3.0-54.0)
--- OUTSIDE RECORDS SUMMARY | 2023-12-14 21:28 | XMS RPT_ITS | CCD ---
Author Organization [facility] Care Team Providers Care Environmental Technical Officer Name Role Phone Emiliano Pelletier DO Primary Care Provider [phone] EMILIANO PELLETIER Primary Care Unavailable EMILIANO PELLETIER Attending Unavailable EMILIANO PELLETIER Primary Care Unavailable EMILIANO PELLETIER Referring Unavailable EMILIANO PELLETIER Primary Care Unavailable EMILIANO PELLETIER Attending Unavailable EMILIANO PELLETIER Primary Care Unavailable EMILIANO PELLETIER Attending Unavailable EMILIANO PELLETIER Primary Care Unavailable TIANA GRIFFIN Referring Unavailable EMILIANO PELLETIER Primary Care Unavailable TIANA GRIFFIN Attending Unavailable EMILIANO PELLETIER Referring Unavailable EMILIANO PELLETIER Primary Care Unavailable EMILIANO PELLETIER Referring Unavailable Emiliano Pelletier DO Primary Care Provider Allergies Allergy Classification Reported Allergen(s) Allergy Type Date of Onset Reaction(s) Facility (20 sources) Acetaminophen / HYDROcodone; Translations: [HYDROCODONE-ACET AMINOPHEN] Drug Allergy 6 Intolerance [facility] Work Phone: (20 sources) Lovastatin; Translations: [LOVASTATIN] Drug Allergy 8 Rash [facility] Work Phone: (19 sources) nylon stockings [Other] Propensity to adverse reactions 7 [facility] Work Phone: (1 source) OTHER; Translations: [OTHER] Propensity to adverse reactions (disorder) 7 [facility] Repository Medications Current Medications Medication Drug Class(es) Dates Sig (Normalized) Sig (Original) acetaminophen 500 mg oral tablet (20 sources) acetaminophen (TYLENOL EXTRA STRENGTH) 500 mg tablet Take 500 mg by mouth as needed. Active Comment on above: Take 500 mg by mouth as needed. aspirin 81 mg oral tablet (20 sources) Platelet Aggregation Inhibitor, Nonsteroidal Anti-inflammatory Drug Start: 02-23-2012 take 1 tablet by mouth once daily Aspirin 81 mg Tab Take 1 tablet by mouth once daily. 30 tablet 11 02/23/2012 Active Comment on above: Take 1 tablet by darryl th once daily. Blood Pressure Cuff - Home Use (20 sources) Start: 03-03-2018 Blood Pressure Cuff - Home Use Indications: Essential hypertension, benign BLOOD PRESSURE CUFF FOR HOME USE. DX: I10 1 Each 03/03/2018 Active Start: 03-03-2018 Blood Pressure Cuff - Home Use Indications: Essential hypertension, benign BLOOD PRESSURE CUFF FOR HOME USE. DX: I10 1 Each 0 03/03/2018 Active Comment on above: BLOOD PRESSURE CUFF FOR HOME USE. DX: I10 CALCIUM-VITAMIN D3 ORAL (20 sources) take 1 tablet by mouth once daily CALCIUM-VITAMIN D3 ORAL Take 1 tablet by mouth once daily. Active take 1 tablet by mouth once vivien y CALCIUM-VITAMIN D3 ORAL Take 1 tablet by mouth once daily. 0 Active Comment on above: Take 1 tablet by darryl th once daily. enalapril maleate 20 mg oral tablet (20 sources) Angiotensin Converting Enzyme Inhibitor Start: 02-26-2023 take 1 tablet by mouth twice daily enalapril (VASOTEC) 20 mg tablet Indications: Essential hypertension, benign Take 1 tablet by mouth two times a day. 180 tablet 3 02/26/2023 Active Start: 05-27-2022 End: 06-06-2022 take 1 tablet by mouth once daily enalapril (VASOTEC) 20 mg tablet Take 1 tablet by mouth once daily. 14 tablet 0 05/27/2022 06/06/2022 Discontinued Start: 02-23-2020 End: 11-26-2022 take 1 tablet by mouth twice daily enalapril (VASOTEC) 20 mg tablet Indications: Essential hypertension, benign Take 1 tablet by mouth two times a day. 180 tablet 0 11/26/2022 Active Comment on above: Take 1 tablet by darryl th twice daily. Take 1 tablet by darryl th once daily. Take 1 tablet by darryl th two times a day. ferrous sulfate (SLOW FE) 137 mg (45 mg iron) TbER (3 sources) Start: 06-26-2023 End: 09-24-2023 take 1 tablet by mouth once daily ferrous sulfate (SLOW FE) 137 mg (45 mg iron) TbER Take 137 mg by mouth once daily. 90 tablet 2 06/26/2023 09/24/2023 Active Start: 06-25-2023 End: 06-26-2023 take 1 tablet by mouth once daily ferrous sulfate (SLOW FE) 137 mg (45 mg iron) TbER Take 137 mg by mouth once daily. 90 tablet 2 06/25/2023 06/26/2023 Discontinued Start: 06-25-2023 End: 09-23-2023 take 1 tablet by mouth once daily ferrous sulfate (SLOW FE) 137 mg (45 mg iron) TbER Take 137 mg by mouth once daily. 90 tablet 2 06/25/2023 09/23/2023 Active meloxicam 15 mg oral tablet (9 sources) Nonsteroidal Anti-inflammatory Drug Start: 10-05-2023 take 1 tablet by mouth once daily as needed for pain meloxicam (MOBIC) 15 mg tablet Indications: Acute bilateral thoracic back pain , Rib pain , Flank pain Take 1 tablet by mouth once daily. For pain as needed, Take with food. 90 tablet 1 10/05/2023 Active metFORMIN hydrochloride 1000 mg oral tablet (20 sources) Biguanide Start: 02-26-2023 take 1 tablet by mouth twice daily at mealtime metFORMIN (GLUCOPHAGE) 1,000 mg tablet Indications: Controlled type 2 diabetes mellitus with complication, without long-term current use of insulin (HCC) Take 1 tablet by mouth two times a day with meals. 180 tablet 3 02/26/2023 Active Start: 12-04-2020 End: 11-26-2022 take 1 tablet by mouth twice daily at mealtime metFORMIN (GLUCOPHAGE) 1,000 mg tablet Indications: Controlled type 2 diabetes mellitus with complication, without long-term current use of insulin (HCC) Take 1 tablet by mouth two times a day with meals. 180 tablet 0 11/26/2022 Active Comment on above: Take 1 tablet by darryl th twice daily with meals. Take 1 tablet by darryl th two times a day with meals. ba-ja-cjqr-FA-Ca carb-vit K (ONE-A-DAY WOMENS FORMULA) 18 mg iron-400 mcg-500 mg tab (20 sources) Start: 03-01-2018 take 1 tablet by mouth once daily ss-fh-nzge-FA-Ca carb-vit K (ONE-A-DAY WOMENS FORMULA) 18 mg iron-400 mcg-500 mg tab Take 1 tablet by mouth once daily. 03/01/2018 Active Start: 03-01-2018 take 1 tablet by darryl th once daily um-mg-ktkh-FA-Ca carb-vit K (ONE-A-DAY WOMENS FORMULA) 18 mg iron-400 mcg-500 mg tab Take 1 tablet by mouth once daily. 0 03/01/2018 Active Comment on above: Take 1 tablet by darryl th once daily. nystatin 100 unt/mg topical powder (20 sources) Polyene Antifungal Start: 09-29-2018 nystatin (MYCOSTATIN) powder Indications: Intertrigo Apply 1 application to affected area twice daily as needed (itching between breasts). 1 Bottle 1 09/29/2018 Active Comment on above: Apply 1 application to affected area twice daily as needed (itching between breasts). omega-3/dha/epa/dpa/fi sh oil (OMEGA-3 2099 ORAL) (20 sources) omega-3/dha/epa/ dpa/fish oil (OMEGA-3 2099 ORAL) Take 1 tablet by mouth twice daily. Active omega-3/dha/epa/ dpa/fish oil (OMEGA-3 2099 ORAL) Take 1 tablet by mouth twice daily. 0 Active Comment on above: Take 1 tablet by darryl th twice daily. oxyCODONE hydrochloride 5 mg oral tablet (6 sources) Opioid Agonist Start: 12-09-2023 End: 12-30-2023 oxyCODONE IR (ROXICODONE) 5 mg immediate release tablet Indications: Mass of right breast, unspecified quadrant , Malignant neoplasm of upper-outer quadrant of right breast in female, estrogen receptor negative (HCC) , Chest wall pain Take 1 tablet by mouth every 8 hours as needed for pain (severe pain) for up to 7 days. Dx: right breast cancer, right breast mass, chest wall pain Patient should start on December 23, 2023. 24 tablet 12/23/2023 12/30/2023 Active VITAMIN A ORAL (20 sources) VITAMIN A ORAL T jodie 1 tablet by mouth as needed. Active VITAMIN A ORAL T jodie 1 tablet by mouth as needed. 0 Active Comment on above: Take 1 tablet by darryl th as needed. vitamin b12 1 mg oral tablet (20 sources) Vitamin B12 Start: 03-01-2018 take 1 tablet by mouth once daily cyanocobalamin (VITAMIN B-12) 1,000 mcg tab Take 1 tablet by mouth once daily. 03/01/2018 Active Comment on above: Take 1 tablet by darryl th once daily. Problems Active Problems Problem Classification Problem Date Documented Da te Episodic/Chronic Abdominal pain (12 sources) Flank pain; Translations: [Unspecified abdominal pain] Onset: 10-05-2023 10-05-2023 Episodic Cancer of breast (20 sources) Malignant neoplasm of upper-outer quadrant of female breast; Translations: [Malignant neoplasm of upper-outer quadrant of right female breast] Onset: 03-06-2020 Chronic Deficiency and other anemia (20 sources) Anemia; Translations: [Anemia, unspecified] Onset: 12-10-2022 12-12-2004 Episodic Diabetes mellitus with complications (20 sources) Type 2 diabetes mellitus; Translations: [Type 2 diabetes mellitus with unspecified complications] Onset: 03-21-2005 Chronic Disorders of lipid metabolism (20 sources) Pure hypercholesterolemi a; Translations: [Pure hypercholesterolemi a, unspecified] Onset: 05-09-2015 Resolved: 08-24-2017 Chronic Essential hypertension (20 sources) Benign essential hypertension; Translations: [Essential (primary) hypertension] Chronic Nonmalignant breast conditions (14 sources) Breast lump; Translations: [Unspecified lump in unspecified breast] Onset: 10-05-2023 01-26-2020 Episodic Nonspecific chest pain (3 sources) Chest wall pain; Translations: [Other chest pain] Onset: 10-05-2023 12-09-2023 Episodic Nutritional deficiencies (20 sources) Vitamin D deficiency; Translations: [Vitamin D deficiency, unspecified] Onset: 12-04-2020 12-04-2020 Chronic Other lower respiratory disease (10 sources) Rib pain; Translations: [Pleurodynia] Onset: 10-05-2023 10-05-2023 Episodic Other lower respiratory disease (1 source) Pleurodynia; Translations: [Rib pain] Onset: 10-05-2023 Episodic Other screening for suspected conditions (not mental disorders or infectious disease) (1 source) Patient encounter status; Translations: [Encounter for screening for osteoporosis] Episodic Secondary malignancies (1 source) Secondary and unspecified malignant neoplasm of axilla and upper limb lymph nodes; Translations: [Breast cancer 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, right (HCC)] Onset: 10-13-2023 Chronic Spondylosis; intervertebral disc disorders; other back problems (13 sources) Acute thoracic back pain; Translations: [Pain in thoracic spine] Onset: 10-05-2023 10-05-2023 Episodic Past or Other Problems Problem Classification Problem Date Documented Date Episodic/Chronic Biliary tract disease (20 sources) Common bile duct calculus; Translations: [Calculus of bile duct without cholangitis or cholecystitis without obstruction] Onset: 05-09-2016 Resolved: 08-24-2017 08-24-2017 Episodic Deficiency and other anemia (1 source) Anemia, unspecified; Translations: [Anemia, unspecified type] Onset: 12-10-2022 Episodic Mycoses (12 sources) Onychomycosis due to dermatophyte ; Translations: [Tinea unguium] Onset: 05-27-2005 Resolved: 08-24-2017 08-24-2017 Episodic Nutritional deficiencies (20 sources) Cobalamin deficiency; Translations: [Deficiency of other specified B group vitamins] Onset: 06-06-2022 Episodic Other connective tissue disease (12 sources) Pain in limb; Translations: [Pain in unspecified limb] Onset: 05-20-2006 Resolved: 08-24-2017 08-24-2017 Episodic Other inflammatory condition of skin (20 sources) Intertrigo; Translations: [Erythema intertrigo] Onset: 09-29-2018 09-29-2018 Episodic Other liver diseases (20 sources) Elevated liver enzymes level; Translations: [Abnormal levels of other serum enzymes] Onset: 05-16-2016 05-16-2016 Episodic Other nervous system disorders (12 sources) Disorder of the peripheral nervous system; Translations: [Hereditary and idiopathic neuropathy, unspecified] Onset: 05-27-2005 Resolved: 06-03-2021 06-03-2021 Chronic Other nutritional; endocrine; and metabolic disorders (13 sources) Unintentional weight loss; Translations: [Abnormal weight loss] Onset: 06-09-2023 06-09-2023 Episodic Other nutritional; endocrine; and metabolic disorders (1 source) Abnormal weight loss; Translations: [Weight loss, unintentional] Onset: 06-09-2023 Episodic Other skin disorders (12 sources) Disorder of skin; Translations: [Other specified disorders of the skin and subcutaneous tissue] Onset: 03-11-2006 Resolved: 08-24-2017 08-24-2017 Episodic Results Test Name Value Interpretation Reference Range [facility] YAHAIRA Telephone (MANUEL) -------- TONYMAGUI ([id number]) 1945 F Date Time Provider Department 12/10/23 MARYANNE GARDNER During your visit today, we recorded the following information about you: Maryanne Gardner MSW 12/10/2023 10:05 AM Signed Patient and Sw discussed housing needs. Patient notes that she would like to downsize where she is currently living. Sw notes a couple of possible helpful resources ie. [employer], [employer]. There is a cost to [employer]. [employer] helps with organizing, helping get rid of unwanted items. [employer] could also be a good agency to help with looking at independent living. Sw will compile resource materials and mail to patient home. Sw will also mail out [facility] Older Adult Resource Directory. Allergies As of Date: 12/10/2023 Noted Allergy Reaction LOVASTATIN 12/21/2007 2 - Rash VICODIN (HYDROCODONE-ACETAMINOPH E*11/20/2005 5 - Intolerance Comments: vomiting, nausea, unsteady Date Reviewed: 10/13/2023 Reviewed by: Lucia Huffman, DANA - Fully Assessed Prescriptions as of 12/10/2023 - oxyCODONE IR (ROXICODONE) 5 mg immediate release tablet Take 1 tablet by mouth every 8 hours as needed for pain (severe breast pain) for up to 7 days. Dx: breast cancer, chest wall pain - oxyCODONE IR (ROXICODONE) 5 mg immediate release tablet Take 1 tablet by mouth every 8 hours as needed for pain (severe pain) for up to 7 days. Dx: breast cancer right, right breast mass, chest wall pain Patient should start on December 16, 2023. - oxyCODONE IR (ROXICODONE) 5 mg immediate release tablet Take 1 tablet by mouth every 8 hours as needed for pain (severe pain) for up to 7 days. Dx: right breast cancer, right breast mass, chest wall pain Patient should start on December 23, 2023. - meloxicam (MOBIC) 15 mg tablet Take 1 tablet by mouth once daily. For pain as needed, Take with food. - metFORMIN (GLUCOPHAGE) 1,000 mg tablet Take 1 tablet by mouth two times a day with meals. - enalapril (VASOTEC) 20 mg tablet Take 1 tablet by mouth two times a day. - blood sugar diagnostic (BLOOD GLUCOSE TEST) test strip Test blood sugar(s) 2 times daily. Dx: Type 2 DM - Uncontrolled E11.65 Insulin: No - Lancets lancets Test blood sugar(s) 2 times daily. Dx: Type 2 DM - Uncontrolled E11.65 Insulin: No - VITAMIN A ORAL Take 1 tablet by mouth as needed. - CALCIUM-VITAMIN D3 ORAL Take 1 tablet by mouth once daily. - acetaminophen (TYLENOL EXTRA STRENGTH) 500 mg tablet Take 500 mg by mouth as needed. - omega-3/dha/epa/dpa/fish oil (OMEGA-3 2100 ORAL) Take 1 tablet by mouth twice daily. - Lancets lancets Test blood sugar(s) 3 times daily. Dx: Type 2 DM - Controlled E11.9 Insulin: No - blood sugar diagnostic (BLOOD GLUCOSE TEST) test strip Test blood sugar(s) 3 times daily. Dx: Type 2 DM - Controlled E11.9 Insulin: No - nystatin (MYCOSTATIN) powder Apply 1 application to affected area twice daily as needed (itching between breasts). - Blood Pressure Cuff - Home Use BLOOD PRESSURE CUFF FOR HOME USE. DX: I10 - ng-py-dlim-FA-Ca carb-vit K (ONE-A-DAY WOMENS FORMULA) 18 mg iron-400 mcg-500 mg tab Take 1 tablet by mouth once daily. - cyanocobalamin (VITAMIN B-12) 1,000 mcg tab Take 1 tablet by mouth once daily. - Aspirin 81 mg Tab Take 1 tablet by mouth once daily. Meds Comments as of 01/23/2020: Fish Oil bid daily and Vitamin C prn. Problem List As Of Date 12/10/2023 Noted Resolved ANEMIA NOS [D64.9] Essential hypertension, benign [I10] Type 2 diabetes mellitus with diabetic neuropat*03/21/2005 Unspecified hereditary and idiopathic periphera*05/27/2005 06/03/2021 Dermatophytosis of nail [B35.1] 05/27/2005 08/24/2017 Other specified disorder of skin [L98.8] 03/11/2006 08/24/2017 Pain in limb [M79.609] 05/20/2006 08/24/2017 Pure hypercholesterolemia [E78.00] 05/09/2015 08/24/2017 Choledocholithiasis [K80.50] 05/09/2016 08/24/2017 History of cholecystectomy [Z90.49] 05/16/2016 08/24/2017 Gallstone (impacted) [K80.20] 05/16/2016 08/24/2017 Elevated liver enzymes [R74.8] 05/16/2016 Intertrigo [L30.4] 09/29/2018 Pure hypercholesterolemia [E78.00] 09/29/2018 Malignant neoplasm of upper-outer quadrant of r*03/06/2020 Vitamin D deficiency [E55.9] 12/04/2020 Controlled type 2 diabetes mellitus with compli*06/03/2021 Vitamin B12 deficiency [E53.8] 06/06/2022 Uncontrolled type 2 diabetes mellitus with hype*06/06/2022 Anemia [D64.9] 12/10/2022 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*06/09/2023 Weight loss, unintentional [R63.4] 06/09/2023 Mass of right breast [N63.10] 10/05/2023 Flank pain [R10.9] 10/05/2023 Chest wall pain [R07.89] 10/05/2023 Acute bilateral thoracic back pain [M54.6] 10/05/2023 Encounter Status:Closed by MARYANNE GARDNER on 12/10/23 Normal [facility] CNOVon 12-09-2023 CNOV Office Visit (FAMPWS ) -------- MAGUI JIMENEZ ([id number]) 1945 F Date Time Provider Department 12/09/23 9:00 AM EMILIANO PELLETIERPEDIE During your visit today, we recorded the following information about you: Temperature Pulse Respiration Blood pressure 97.8 degrees 80/minute 20/minute 156/80 Weight 57 kg Emiliano Pelletier, DO 12/09/2023 12:04 PM Signed CC: Magui Jimenez is a 78 year old female who presents to the office for follow up HPI: flank pain right and left side, aching, sometimes sharp pains. No known injuries. Has been active with mopping floors but no known injuries. Has been using ice and heating pad and tylenol. Pain is up to a 7/10 on pain scale. Worse pain with movement. Symptoms started in September. Right breast lump/mass, diagnosed with breast CA, was seen by breast surgeon Dr. Mneon, general surgeon Dr. Shaffer and [facility] DR. Winn in the last 5 years. Was told need surgical excision and chemotherapy/radiation would be needed. She stated at that time that she has thought about these options and I don't want to do any of it. I won't claim that I have breast cancer. I understand there is a lump there but I really believe as a Islam that I am at peace with this decision. Denies any breast pain or skin changes or nipple discharge. has been Refusing to treat it and understands risks involved. She still feels this same way and doesn't want to undergo chemotherapy or radiation treatment. She is willing to reconsider seeing the Breast surgeon/general surgeon for opinion, but refuses any chemo or radiation treatment. She is struggling more with the pain that the breast cancer is causing. She states that her appetite is normal. she has been eating healthy foods and no junk foods Vitamin D deficiency, taking supplement regularly she states Hx of anemia, no bleeding or fatigue concerns. Tolerating her metformin- doesn't regularly check her blood glucose because she doesn't want to and she states that she feels well Denies any Blood in stools or severe joint pains or rashes. PAST MEDICAL HISTORY Diagnosis Date Anemia, unspecified 02/17/2004 normocytic; iron, B12, folate, thyroid, hgb electrophereesis all WNL 02/20. Anemia did improve on supplemental iron. Degeneration of lumbar or lumbosacral intervertebral disc 02/16/2006 per xray Dermatophytosis of nail 06/16/[address] Stuart Diabetic peripheral neuropathy (HCC) Elevated sedimentation rate Essential hypertension, benign Macular degeneration (senile) of retina, unspecified 03/19/2004 macular edema from diabetic retinopathy with best corrected vision 20/50. Sees retinal specialist Dr. Haroon Claros Malignant neoplasm of overlapping sites of right female breast (HCC) 02/2020 Nonspecific (abnormal) findings on radiological and other examination of skull and head 11/16/2005 MRI brain: left pituitary enlargement needing further evaluation Other chest pain 12/18/2003 UT ruled out. Adenosine stress test WNL; 2d echo [id number]% Psoriasis Pure hypercholesterolemia Type II or unspecified type diabetes mellitus with ophthalmic manifestations, not stated as uncontrolled(250.50) 02/16/1985 PAST SURGICAL HISTORY Procedure Laterality Date BREAST BIOPSY HX Right 01/26/2020 CHOLECYSTECTOMY OVARIAN CYSTECTOMY approx. 1989 RPR RETINAL DTCHMNT DRG SUBRETINAL FLUID PC Laser repair retinal detach Current Outpatient Medications Medication Sig meloxicam (MOBIC) 15 mg tablet Take 1 tablet by mouth once daily. For pain as needed, Take with food. metFORMIN (GLUCOPHAGE) 1,000 mg tablet Take 1 tablet by mouth two times a day with meals. enalapril (VASOTEC) 20 mg tablet Take 1 tablet by mouth two times a day. blood sugar diagnostic (BLOOD GLUCOSE TEST) test strip Test blood sugar(s) 2 times daily. Dx: Type 2 DM - Uncontrolled E11.65 Insulin: No Lancets lancets Test blood sugar(s) 2 times daily. Dx: Type 2 DM - Uncontrolled E11.65 Insulin: No VITAMIN A ORAL Take 1 tablet by mouth as needed. (Patient not taking: Reported on 10/13/2023) CALCIUM-VITAMIN D3 ORAL Take 1 tablet by mouth once daily. acetaminophen (TYLENOL EXTRA STRENGTH) 500 mg tablet Take 500 mg by mouth as needed. omega-3/dha/epa/dpa/fish oil (OMEGA-3 2100 ORAL) Take 1 tablet by mouth twice daily. (Patient not taking: Reported on 10/13/2023) Lancets lancets Test blood sugar(s) 3 times daily. Dx: Type 2 DM - Controlled E11.9 Insulin: No blood sugar diagnostic (BLOOD GLUCOSE TEST) test strip Test blood sugar(s) 3 times daily. Dx: Type 2 DM - Controlled E11.9 Insulin: No nystatin (MYCOSTATIN) powder Apply 1 application to affected area twice daily as needed (itching between breasts). Blood Pressure Cuff - Home Use BLOOD PRESSURE CUFF FOR HOME USE. DX: I10 oi-nh-stwr-FA-Ca carb-vit K (ONE-A-DAY WOMENS FORMULA) 18 mg iron-400 mcg-500 mg tab (more content not included)... Normal [facility] Tiffanie 11-05-2023 YAHAIRA Telephone (SANTOSH) -------- MAGUI JIMENEZ ([id number]) 1945 F Date Time Provider Department 11/05/23 [facility] PROVIDER SANTOSH During your visit today, we recorded the following information about you: Keegan Cooley MA 11/05/2023 3:06 PM Signed Attempted to contact patient via telephone regarding upcoming NEW patient appointment with Dr. Strong on 11/06/23. [facility] relaying the message below: This is the [facility] calling regarding your upcoming appointment with Dr. Strong. Please complete the assigned pre-visit questionnaires on WALTOP prior to your appointment. To avoid a delay in your care, please bring any radiology images that have been done outside of the [facility] Systems on a disk to be viewed at your appointment. Dr. Strong is an Interventional Pain Management provider specializing in the Spine. Please be aware that this appointment is a consult only and narcotics will NOT be prescribed. He treats with physical therapy, injections of the spine or joints, and non-narcotic medications. Dr. Strong will not take over and manage any medications that are already being prescribed by another provider. Allergies As of Date: 11/05/2023 Noted Allergy Reaction LOVASTATIN 12/21/2007 2 - Rash VICODIN (HYDROCODONE-ACETAMINOPH E*11/20/2005 5 - Intolerance Comments: vomiting, nausea, unsteady Date Reviewed: 10/13/2023 Reviewed by: Lucia Huffman RN - Fully Assessed Reason for Visit: Future Appointment [256] Cmt: Left Voice Mail Prescriptions as of 11/05/2023 - meloxicam (MOBIC) 15 mg tablet Take 1 tablet by mouth once daily. For pain as needed, Take with food. - metFORMIN (GLUCOPHAGE) 1,000 mg tablet Take 1 tablet by mouth two times a day with meals. - enalapril (VASOTEC) 20 mg tablet Take 1 tablet by mouth two times a day. - blood sugar diagnostic (BLOOD GLUCOSE TEST) test strip Test blood sugar(s) 2 times daily. Dx: Type 2 DM - Uncontrolled E11.65 Insulin: No - Lancets lancets Test blood sugar(s) 2 times daily. Dx: Type 2 DM - Uncontrolled E11.65 Insulin: No - VITAMIN A ORAL Take 1 tablet by mouth as needed. - CALCIUM-VITAMIN D3 ORAL Take 1 tablet by mouth once daily. - acetaminophen (TYLENOL EXTRA STRENGTH) 500 mg tablet Take 500 mg by mouth as needed. - omega-3/dha/epa/dpa/fish oil (OMEGA-3 2100 ORAL) Take 1 tablet by mouth twice daily. - Lancets lancets Test blood sugar(s) 3 times daily. Dx: Type 2 DM - Controlled E11.9 Insulin: No - blood sugar diagnostic (BLOOD GLUCOSE TEST) test strip Test blood sugar(s) 3 times daily. Dx: Type 2 DM - Controlled E11.9 Insulin: No - nystatin (MYCOSTATIN) powder Apply 1 application to affected area twice daily as needed (itching between breasts). - Blood Pressure Cuff - Home Use BLOOD PRESSURE CUFF FOR HOME USE. DX: I10 - uk-yo-ertd-FA-Ca carb-vit K (ONE-A-DAY WOMENS FORMULA) 18 mg iron-400 mcg-500 mg tab Take 1 tablet by mouth once daily. - cyanocobalamin (VITAMIN B-12) 1,000 mcg tab Take 1 tablet by mouth once daily. - Aspirin 81 mg Tab Take 1 tablet by mouth once daily. Meds Comments as of 01/23/2020: Fish Oil bid daily and Vitamin C prn. Problem List As Of Date 11/05/2023 Noted Resolved ANEMIA NOS [D64.9] Essential hypertension, benign [I10] Type 2 diabetes mellitus with diabetic neuropat*03/21/2005 Unspecified hereditary and idiopathic periphera*05/27/2005 06/03/2021 Dermatophytosis of nail [B35.1] 05/27/2005 08/24/2017 Other specified disorder of skin [L98.8] 03/11/2006 08/24/2017 Pain in limb [M79.609] 05/20/2006 08/24/2017 Pure hypercholesterolemia [E78.00] 05/09/2015 08/24/2017 Choledocholithiasis [K80.50] 05/09/2016 08/24/2017 History of cholecystectomy [Z90.49] 05/16/2016 08/24/2017 Gallstone (impacted) [K80.20] 05/16/2016 08/24/2017 Elevated liver enzymes [R74.8] 05/16/2016 Intertrigo [L30.4] 09/29/2018 Pure hypercholesterolemia [E78.00] 09/29/2018 Malignant neoplasm of upper-outer quadrant of r*03/06/2020 Vitamin D deficiency [E55.9] 12/04/2020 Controlled type 2 diabetes mellitus with compli*06/03/2021 Vitamin B12 deficiency [E53.8] 06/06/2022 Uncontrolled type 2 diabetes mellitus with hype*06/06/2022 Anemia [D64.9] 12/10/2022 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*06/09/2023 Weight loss, unintentional [R63.4] 06/09/2023 Mass of right breast [N63.10] 10/05/2023 Flank pain [R10.9] 10/05/2023 Rib pain [R07.81] 10/05/2023 Acute bilateral thoracic back pain [M54.6] 10/05/2023 Encounter Status:Closed by KEEGAN COOLEY on 11/05/23 Normal [facility] CNPNon 10-15-2023 CNPN Telephone ([facility]) -------- MAGUI JIMENEZ ([id number]) 1945 F Date Time Provider Department 10/15/23 JARED CHEN During your visit today, we recorded the following information about you: Jared Chen APRN.CNP 10/15/2023 5:39 PM Signed Please let her know that her back and rib xrays both look normal. Jared Chen APRN.Raissa Edgar MA 10/16/2023 8:49 AM Signed Pt informed, verbalized understanding. Reports she is still in pain. Reports minimal relief with mobic. Please advise next step. BE Garcias Rebekah, APRN.CNP 10/16/2023 9:11 AM Signed I recommend she see pain management for further assessment, treatment. GAIL Bauer Jazzmin, MA 10/16/2023 9:28 AM Signed Pt informed. Please schedule pt with pain management. Raissa Vazquez MA Allergies As of Date: 10/15/2023 Noted Allergy Reaction LOVASTATIN 12/21/2007 2 - Rash VICODIN (HYDROCODONE-ACETAMINOPH E*11/20/2005 5 - Intolerance Comments: vomiting, nausea, unsteady Date Reviewed: 10/13/2023 Reviewed by: Lucia Huffman, DANA - Fully Assessed Reason for Visit: Results [95] Primary Visit Diagnosis:Acute bilateral thoracic back pain [M54.6] Other Visit Diagnoses:Rib pain [R07.81] Flank pain [R10.9] Order(s):CONSULT TO PAIN MGT [[id number]] Order #: [id number]: 1 FUTURE Prescriptions as of 10/26/2023 - meloxicam (MOBIC) 15 mg tablet Take 1 tablet by mouth once daily. For pain as needed, Take with food. - metFORMIN (GLUCOPHAGE) 1,000 mg tablet Take 1 tablet by mouth two times a day with meals. - enalapril (VASOTEC) 20 mg tablet Take 1 tablet by mouth two times a day. - blood sugar diagnostic (BLOOD GLUCOSE TEST) test strip Test blood sugar(s) 2 times daily. Dx: Type 2 DM - Uncontrolled E11.65 Insulin: No - Lancets lancets Test blood sugar(s) 2 times daily. Dx: Type 2 DM - Uncontrolled E11.65 Insulin: No - VITAMIN A ORAL Take 1 tablet by mouth as needed. - CALCIUM-VITAMIN D3 ORAL Take 1 tablet by mouth once daily. - acetaminophen (TYLENOL EXTRA STRENGTH) 500 mg tablet Take 500 mg by mouth as needed. - omega-3/dha/epa/dpa/fish oil (OMEGA-3 2100 ORAL) Take 1 tablet by mouth twice daily. - Lancets lancets Test blood sugar(s) 3 times daily. Dx: Type 2 DM - Controlled E11.9 Insulin: No - blood sugar diagnostic (BLOOD GLUCOSE TEST) test strip Test blood sugar(s) 3 times daily. Dx: Type 2 DM - Controlled E11.9 Insulin: No - nystatin (MYCOSTATIN) powder Apply 1 application to affected area twice daily as needed (itching between breasts). - Blood Pressure Cuff - Home Use BLOOD PRESSURE CUFF FOR HOME USE. DX: I10 - xm-ht-lijp-FA-Ca carb-vit K (ONE-A-DAY WOMENS FORMULA) 18 mg iron-400 mcg-500 mg tab Take 1 tablet by mouth once daily. - cyanocobalamin (VITAMIN B-12) 1,000 mcg tab Take 1 tablet by mouth once daily. - Aspirin 81 mg Tab Take 1 tablet by mouth once daily. Meds Comments as of 01/23/2020: Fish Oil bid daily and Vitamin C prn. Problem List As Of Date 10/15/2023 Noted Resolved ANEMIA NOS [D64.9] Essential hypertension, benign [I10] Type 2 diabetes mellitus with diabetic neuropat*03/21/2005 Unspecified hereditary and idiopathic periphera*05/27/2005 06/03/2021 Dermatophytosis of nail [B35.1] 05/27/2005 08/24/2017 Other specified disorder of skin [L98.8] 03/11/2006 08/24/2017 Pain in limb [M79.609] 05/20/2006 08/24/2017 Pure hypercholesterolemia [E78.00] 05/09/2015 08/24/2017 Choledocholithiasis [K80.50] 05/09/2016 08/24/2017 History of cholecystectomy [Z90.49] 05/16/2016 08/24/2017 Gallstone (impacted) [K80.20] 05/16/2016 08/24/2017 Elevated liver enzymes [R74.8] 05/16/2016 Intertrigo [L30.4] 09/29/2018 Pure hypercholesterolemia [E78.00] 09/29/2018 Malignant neoplasm of upper-outer quadrant of r*03/06/2020 Vitamin D deficiency [E55.9] 12/04/2020 Controlled type 2 diabetes mellitus with compli*06/03/2021 Vitamin B12 deficiency [E53.8] 06/06/2022 Uncontrolled type 2 diabetes mellitus with hype*06/06/2022 Anemia [D64.9] 12/10/2022 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*06/09/2023 Weight loss, unintentional [R63.4] 06/09/2023 Mass of right breast [N63.10] 10/05/2023 Flank pain [R10.9] 10/05/2023 Rib pain [R07.81] 10/05/2023 Acute bilateral thoracic back pain [M54.6] 10/05/2023 Encounter Status:Closed by JARED CHEN on 10/22/23 [facility] CNOVon 10-13-2023 CNOV Office Visit ([facility] ) -------- MAGUI JIMENEZ ([id number]) 1945 F Date Time Provider Department 10/13/23 9:30 AM TIANA GRIFFIN During your visit today, we recorded the following information about you: Temperature Pulse Blood pressure Weight 99 degrees 110/minute 140/84 59 kg Height 1.638 m Lucia Huffman RN 10/13/2023 9:25 AM Signed REVIEW OF SYSTEMS: General: The patient denies fatigue, denies weight loss, denies weight gain, denies feeling hot, and denies feelings of cold. Eyes: The patient denies glaucoma, denies eye injury/surgery, does not wear glasses or contacts. Ear/Nose/Throat: The patient denies allergies, denies hayfever, denies ear infections, and denies bloody noses. Cardiovascular: The patient denies chest pain, denies heart disease, NOTES high blood pressure,denies cardiac stent, denies prior heart attack, denies irregular heart beat, NOTES high cholesterol, denies poor circulation, denies heart failure, other cardiac issues, denies claudication, denies cold feet, denies peripheral arterial stent. Respiratory: The patient denies tuberculosis, denies pneumonia, denies frequent cough, denies pulmonary embolism, denies shortness of breath, and denies coughing up blood. Gastrointestinal: The patient denies difficulty swallowing, denies acid reflux, denies ulcers, denies vomiting, denies jaundice/hepatitis, denies gallbladder problems, denies black or tarry stools, denies hemorrhoids, denies bleeding from rectum, denies diverticulitis, denies constipation, denies diarrhea, denies loss of stool control, and denies hernias. Kidney/Bladder: The patient denies kidney stones, denies urine infections, and denies bloody urine. Skin: The patient denies a history of skin cancer, denies bleeding/changing moles, and denies a history of skin rash. Neurologic: The patient denies a history of epilepsy/convulsions, denies headaches, denies head/spinal injuries, and denies stroke/TIA. Psychiatric: The patient denies psychiatric medications, denies depression, and denies voices, denies substance abuse. Endocrine: The patient denies thyroid disorders, NOTES diabetes, and denies hormonal problems. Hematologic: The patient denies a history of bruising, denies bleeding, and denies anemia, denies blood clots. Infections: The patient NOTES a history of measles and mumps, denies rheumatic fever, and denies sexually transmitted diseases. Musculoskeletal: The patient NOTES back pain/injury, NOTES back problems, NOTES sciatica, denies knee/foot trouble, denies arthritis, or denies gout. When was patient's last Mammogram screening? 01/2020 Last Colonoscopy: NEVER DANA Steel Linda Marie, MD 10/14/2023 9:41 AM Signed Magui Jimenez 1945 REFERRING PHYSICIAN: Emiliano Pelletier DO CHIEF COMPLAINT: Follow Up (Mass of rt breast) HPI: The patient is a 77 year old female presents with right breast pain and mass of right breast. She had been diagnosed with triple negative breast cancer in 2020. She had been seen by Dr. Menon and did not schedule for treatment. She states that it was because she felt really good and did not want to change the ay she felt. She states that it was not bothering me and I am oriental orthodox and trust in God's hand At present, she notes a large mass of her right breast. She states that her breast is very heavy and has pulling pain., She also notes pain in her mid back and right rib cage and right shoulder. She states that she gets some relief of her pain with acetaminophen. PAST MEDICAL HISTORY 02/17/2004: Anemia, unspecified Comment: normocytic; iron, B12, folate, thyroid, hgb electrophereesis all WNL 02/20. Anemia did improve on supplemental iron. 02/16/2006: Degeneration of lumbar or lumbosacral intervertebral disc Comment: per xray 06/16/2005: Dermatophytosis of nail Comment: Lamisil tx per Dr. Stuart No date: Diabetic peripheral neuropathy (HCC) No date: Elevated sedimentation rate No date: Essential hypertension, benign 03/19/2004: Macular degeneration (senile) of retina, unspecified Comment: macular edema from diabetic retinopathy with best corrected vision 20/50. Sees retinal specialist Dr. Haroon Claros 02/2020: Malignant neoplasm of overlapping sites of right female breast (HCC) 11/16/2005: Nonspecific (abnormal) findings on radiological and other examination of skull and head Comment: MRI brain: left pituitary enlargement needing further evaluation 12/18/2003: Other chest pain Comment: UT ruled out. Adenosine stress test WNL; 2d echo [id number]% No date: Psoriasis No date: Pure hypercholesterolemia 02/16/1985: Type II or unspecified type diabetes mellitus with ophthalmic manifestations, not stated as uncontrolled(250.50) PAST SURGICAL HISTORY 01/26/2020: BREAST BIOPSY HX; Right No date: CHOLECYSTECT (more content not included)... Normal [facility] Tiffanie 10-13-2023 SANDEEPN Telephone (DEN[facility]) -------- MAGUI JIMENEZ ([id number]) 1945 F Date Time Provider Department 10/13/23 MARCUS WINN During your visit today, we recorded the following information about you: Devi Cam 10/13/2023 10:36 AM Addendum Nurse Coby from Dr. Griffin's office called this PSS to get patient scheduled with Dr. Winn for Breast Cancer with probable mets. This PSS consulted with clinical. Patient scheduled for 4:00 PM today. Per Teams message: Appointment cancelled and clinical notified. Allergies As of Date: 10/13/2023 Noted Allergy Reaction LOVASTATIN 12/21/2007 2 - Rash VICODIN (HYDROCODONE-ACETAMINOPH E*11/20/2005 5 - Intolerance Comments: vomiting, nausea, unsteady Date Reviewed: 10/13/2023 Reviewed by: Lucia Huffman, RN - Fully Assessed Reason for Visit: New Patient [172] Prescriptions as of 10/13/2023 - meloxicam (MOBIC) 15 mg tablet Take 1 tablet by mouth once daily. For pain as needed, Take with food. - metFORMIN (GLUCOPHAGE) 1,000 mg tablet Take 1 tablet by mouth two times a day with meals. - enalapril (VASOTEC) 20 mg tablet Take 1 tablet by mouth two times a day. - blood sugar diagnostic (BLOOD GLUCOSE TEST) test strip Test blood sugar(s) 2 times daily. Dx: Type 2 DM - Uncontrolled E11.65 Insulin: No - Lancets lancets Test blood sugar(s) 2 times daily. Dx: Type 2 DM - Uncontrolled E11.65 Insulin: No - VITAMIN A ORAL Take 1 tablet by mouth as needed. - CALCIUM-VITAMIN D3 ORAL Take 1 tablet by mouth once daily. - acetaminophen (TYLENOL EXTRA STRENGTH) 500 mg tablet Take 500 mg by mouth as needed. - omega-3/dha/epa/dpa/fish oil (OMEGA-3 2100 ORAL) Take 1 tablet by mouth twice daily. - Lancets lancets Test blood sugar(s) 3 times daily. Dx: Type 2 DM - Controlled E11.9 Insulin: No - blood sugar diagnostic (BLOOD GLUCOSE TEST) test strip Test blood sugar(s) 3 times daily. Dx: Type 2 DM - Controlled E11.9 Insulin: No - nystatin (MYCOSTATIN) powder Apply 1 application to affected area twice daily as needed (itching between breasts). - Blood Pressure Cuff - Home Use BLOOD PRESSURE CUFF FOR HOME USE. DX: I10 - ek-zt-sovx-FA-Ca carb-vit K (ONE-A-DAY WOMENS FORMULA) 18 mg iron-400 mcg-500 mg tab Take 1 tablet by mouth once daily. - cyanocobalamin (VITAMIN B-12) 1,000 mcg tab Take 1 tablet by mouth once daily. - Aspirin 81 mg Tab Take 1 tablet by mouth once daily. Meds Comments as of 01/23/2020: Fish Oil bid daily and Vitamin C prn. Problem List As Of Date 10/13/2023 Noted Resolved ANEMIA NOS [D64.9] Essential hypertension, benign [I10] Type 2 diabetes mellitus with diabetic neuropat*03/21/2005 Unspecified hereditary and idiopathic periphera*05/27/2005 06/03/2021 Dermatophytosis of nail [B35.1] 05/27/2005 08/24/2017 Other specified disorder of skin [L98.8] 03/11/2006 08/24/2017 Pain in limb [M79.609] 05/20/2006 08/24/2017 Pure hypercholesterolemia [E78.00] 05/09/2015 08/24/2017 Choledocholithiasis [K80.50] 05/09/2016 08/24/2017 History of cholecystectomy [Z90.49] 05/16/2016 08/24/2017 Gallstone (impacted) [K80.20] 05/16/2016 08/24/2017 Elevated liver enzymes [R74.8] 05/16/2016 Intertrigo [L30.4] 09/29/2018 Pure hypercholesterolemia [E78.00] 09/29/2018 Malignant neoplasm of upper-outer quadrant of r*03/06/2020 Vitamin D deficiency [E55.9] 12/04/2020 Controlled type 2 diabetes mellitus with compli*06/03/2021 Vitamin B12 deficiency [E53.8] 06/06/2022 Uncontrolled type 2 diabetes mellitus with hype*06/06/2022 Anemia [D64.9] 12/10/2022 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*06/09/2023 Weight loss, unintentional [R63.4] 06/09/2023 Mass of right breast [N63.10] 10/05/2023 Flank pain [R10.9] 10/05/2023 Rib pain [R07.81] 10/05/2023 Acute bilateral thoracic back pain [M54.6] 10/05/2023 Encounter Status:Closed by MARIELA BHATTI on 10/13/23 Normal [facility] XR RIBS 4V WALT+UPPER/LOWER C [facility] 10-13-2023 XR RIBS 4V WALT+UPPER/LOWER CHEST * * *Final Report* * * DATE OF EXAM: Oct 13 2023 11:03AM [id number] - XR RIBS 4V WALT+UPPER/LOWER CHEST / PROCEDURE REASON: Rib pain * * * * Physician Interpretation * * * * EXAMINATION: X-ray chest and bilateral ribs Clinical History: Rib pain M: [id number] Comparison: Chest x-ray 05/10/2016 RESULT: Lines, tubes, and devices: None. Lungs and pleura: No consolidation. No lung mass. No pleural effusion. Cardiomediastinal silhouette: Normal cardiomediastinal silhouette. Musculoskeletal: No acute fracture or destructive osseous lesion IMPRESSION: No acute radiographic abnormality. [place] Pumper: PSCB Transcribe Date/Time: Oct 15 2023 4:03P Dictated by : OLGA ARNOLD MD This examination was interpreted and the report reviewed and electronically signed by: OLGA ARNOLD MD on Oct 15 2023 4:06PM EST [id number] Normal [facility] XR THORACIC 3V AP/LAT/SWIMME RSon 10-13-2023 XR THORACIC 3V AP/LAT/SWIMMERS * * *Final Report* * * DATE OF EXAM: Oct 13 2023 11:05AM [id number] - XR THORACIC 3V AP/LAT/SWIMMERS / PROCEDURE REASON: Acute bilateral thoracic back pain * * * * Physician Interpretation * * * * EXAMINATION: XR THORACIC 3V AP/LAT/SWIMMERS CLINICAL HISTORY: Back pain Technique: XR THORACIC 3V AP/LAT/SWIMMERS -- NOT APPLICABLE with 3 views on 4 images Comparison: None RESULT: No acute fracture or malalignment. No destructive osseous lesion. Zufk-gj-mpwrcncy multilevel intervertebral disc space narrowing with vertebral body osteophytes. IMPRESSION: No acute osseous abnormality [place] Pumper: NADINE Transcribe Date/Time: Oct 15 2023 4:12P Dictated by : OLGA ARNOLD MD This examination was interpreted and the report reviewed and electronically signed by: OLGA ARNOLD MD on Oct 15 2023 4:13PM EST [id number] [facility] -------- MAGUI JIMENEZ ([id number]) 1945 F Date Time Provider Department 10/08/23 [facility] During your visit today, we recorded the following information about you: Devi Holt, DANA 10/08/2023 4:29 PM Signed Patient calls and states that the iron she has been taking makes her stools firm. After a while stools become loose. Patient states that she has noticed that she has to urinate more. Patient continues also to have stomach pains. Patient states that her back and rib pain is getting worse. Advised patient that Dr. Pelletier has x ray orders for this and patient needs to come and get those done so that Dr. Pelletier know what is going on. Patient voiced understanding. Patient states that she will be in tomorrow to have these done. Patient wanted provider aware of this. DANA Cortes Jordan L, DO 10/26/2023 6:51 AM Signed Please inform patient that her rib and thoracic spine xrays are overall normal except for some degenerative disc changes in her thoracic spine, which is related to aging/previous injury Likely the pain is coming from the right breast cancer. I am aware that she doesn't want surgery or chemotherapy/radiation or any aggressive treatments. We can offer palliative care options for pain medication DO Noman Tom Linda M, LPN 10/26/2023 12:23 PM Signed Called pt phone rings and rings . Will need to try back at a later time. Lalitha Arciniega MA 10/26/2023 1:21 PM Signed Pt notified. Wants to hold off on Palliative care at this time. She is scheduled with Pain Management. She state that she is doing well with Mobic in AM and Tylenol at bedtime as needed. This is working well for her. Lalitha Arciniega MA Allergies As of Date: 10/08/2023 Noted Allergy Reaction LOVASTATIN 12/21/2007 2 - Rash VICODIN (HYDROCODONE-ACETAMINOPH E*11/20/2005 5 - Intolerance Comments: vomiting, nausea, unsteady Date Reviewed: 06/09/2023 Reviewed by: Janet Montoya LPN - Fully Assessed Reason for Visit: Patient Update [1234] Prescriptions as of 10/26/2023 - meloxicam (MOBIC) 15 mg tablet Take 1 tablet by mouth once daily. For pain as needed, Take with food. - metFORMIN (GLUCOPHAGE) 1,000 mg tablet Take 1 tablet by mouth two times a day with meals. - enalapril (VASOTEC) 20 mg tablet Take 1 tablet by mouth two times a day. - blood sugar diagnostic (BLOOD GLUCOSE TEST) test strip Test blood sugar(s) 2 times daily. Dx: Type 2 DM - Uncontrolled E11.65 Insulin: No - Lancets lancets Test blood sugar(s) 2 times daily. Dx: Type 2 DM - Uncontrolled E11.65 Insulin: No - VITAMIN A ORAL Take 1 tablet by mouth as needed. - CALCIUM-VITAMIN D3 ORAL Take 1 tablet by mouth once daily. - acetaminophen (TYLENOL EXTRA STRENGTH) 500 mg tablet Take 500 mg by mouth as needed. - omega-3/dha/epa/dpa/fish oil (OMEGA-3 2100 ORAL) Take 1 tablet by mouth twice daily. - Lancets lancets Test blood sugar(s) 3 times daily. Dx: Type 2 DM - Controlled E11.9 Insulin: No - blood sugar diagnostic (BLOOD GLUCOSE TEST) test strip Test blood sugar(s) 3 times daily. Dx: Type 2 DM - Controlled E11.9 Insulin: No - nystatin (MYCOSTATIN) powder Apply 1 application to affected area twice daily as needed (itching between breasts). - Blood Pressure Cuff - Home Use BLOOD PRESSURE CUFF FOR HOME USE. DX: I10 - ty-ok-jxjs-FA-Ca carb-vit K (ONE-A-DAY WOMENS FORMULA) 18 mg iron-400 mcg-500 mg tab Take 1 tablet by mouth once daily. - cyanocobalamin (VITAMIN B-12) 1,000 mcg tab Take 1 tablet by mouth once daily. - Aspirin 81 mg Tab Take 1 tablet by mouth once daily. Meds Comments as of 01/23/2020: Fish Oil bid daily and Vitamin C prn. Problem List As Of Date 10/08/2023 Noted Resolved ANEMIA NOS [D64.9] Essential hypertension, benign [I10] Type 2 diabetes mellitus with diabetic neuropat*03/21/2005 Unspecified hereditary and idiopathic periphera*05/27/2005 06/03/2021 Dermatophytosis of nail [B35.1] 05/27/2005 08/24/2017 Other specified disorder of skin [L98.8] 03/11/2006 08/24/2017 Pain in limb [M79.609] 05/20/2006 08/24/2017 Pure hypercholesterolemia [E78.00] 05/09/2015 08/24/2017 Choledocholithiasis [K80.50] 05/09/2016 08/24/2017 History of cholecystectomy [Z90.49] 05/16/2016 08/24/2017 Gallstone (impacted) [K80.20] 05/16/2016 08/24/2017 Elevated liver enzymes [R74.8] 05/16/2016 Intertrigo [L30.4] 09/29/2018 Pure hypercholesterolemia [E78.00] 09/29/2018 Malignant neoplasm of upper-outer quadrant of r*03/06/2020 Vitamin D deficiency [E55.9] 12/04/2020 Controlled type 2 diabetes mellitus with compli*06/03/2021 Vitamin B12 deficiency [E53.8] 06/06/2022 Uncontrolled type 2 diabetes mellitus with hype*06/06/2022 Anemia [D64.9] 12/10/2022 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*06/09/2023 Weight loss, unintentional [R63.4] 06/09/2023 Ma (more content not included)... Normal [facility] CBC W Auto Differential pane l (Bld)on 10-05-2023 Basophils (Bld) [#/Vol] [facility] Basophils/100 WBC (Bld) 0.1 % [facility] Differential cell count method Nom (Bld) Auto [facility] Eosinophils (Bld) [#/Vol] 0.10 10*3/uL [facility] Eosinophils/100 WBC (Bld) 1.5 % [facility] Erythrocyte distribution width (RBC) [Ratio] 15.2 % High 11.5 - 15.0 % [facility] Hematocrit (Bld) [Volume fraction] 36.9 % 36.0 - 46.0 % [facility] Hemoglobin (Bld) [Mass/Vol] 11.1 g/dL Low 11.5 - 15.5 g/dL [facility] Immature granulocytes (Bld) [#/Vol] [facility] Immature granulocytes/100 WBC (Bld) 0.3 % [facility] Interpretation and review of laboratory results Abnormal [facility] Lymphocytes (Bld) [#/Vol] 2.13 10*3/uL [facility] Lymphocytes/100 WBC (Bld) 31.3 % [facility] MCH (RBC) [Entitic mass] 26.5 pg 26.0 - 34.0 pg [facility] MCHC (RBC) [Mass/Vol] 30.1 g/dL Low 30.5 - 36.0 g/dL [facility] MCV (RBC) [Entitic vol] 88.1 fL 80.0 - 100.0 fL [facility] Monocytes (Bld) [#/Vol] 0.44 10*3/uL [facility] Monocytes/100 WBC (Bld) 6.5 % [facility] Neutrophils (Bld) [#/Vol] 4.11 10*3/uL [facility] Neutrophils/100 WBC (Bld) 60.3 % [facility] Nucleated RBC (Bld) [#/Vol] NINF [facility] Nucleated RBC/100 WBC (Bld) [Ratio] 0.0 % /100 WBC [facility] Platelet mean volume (Bld) [Entitic vol] 11.4 fL 9.0 - 12.7 fL [facility] Platelets (Bld) [#/Vol] 308 10*3/uL [facility] RBC (Bld) [#/Vol] 4.19 10*6/uL 3.90 - 5.2 0 m/uL [facility] WBC (Bld) [#/Vol] 6.81 10*3/uL [facility] Basophils (Bld) [#/Vol] 10*3/uL Normal <0.11 [facility] Comment on above: Order Comment: Speci men Type: BLOOD SPECIMENOrdering Facility: [facility] Address: [address] [place] [address] Performed By: #### [id number] ####[facility] LABCLIA [id number] [place] [address] [place] Basophils/100 WBC (Bld) 0.1 % Normal [facility] Comment on above: Order Comment: Speci men Type: BLOOD SPECIMENOrdering Facility: [facility] Address: [address] [place] [address] Performed By: #### 5 7021-8 ####[facility] LABCLIA [id number] [place] [address] [place] Differential cell count method Nom (Bld) Auto Normal [facility] Comment on above: Order Comment: Speci men Type: BLOOD SPECIMENOrdering Facility: [facility] Address: [address] [place] [address] Performed By: #### 5 7021-8 ####[facility] LABCLIA [id number] [place] [address] [place] Eosinophils (Bld) [#/Vol] 0.10 10*3/uL Normal <0.46 [facility] Comment on above: Order Comment: Speci men Type: BLOOD SPECIMENOrdering Facility: [facility] Address: [address] [place] [address] Performed By: #### 5 7021-8 ####[facility] LABCLIA [id number] [place] [address] [place] Eosinophils/100 WBC (Bld) 1.5 % Normal [facility] Comment on above: Order Comment: Speci men Type: BLOOD SPECIMENOrdering Facility: [facility] Address: [address] [place] [address] Performed By: #### 5 7021-8 ####[facility] LABIA [id number] [place] [address] [place] Erythrocyte distribution width (RBC) [Ratio] 15.2 % High 11.5-15.0 [facility] Comment on above: Order Comment: Speci men Type: BLOOD SPECIMENOrdering Facility: [facility] Address: [address] [place] [address] Performed By: #### 5 7021-8 ####[facility] LABIA [id number] [place] [address] [place] Hematocrit (Bld) [Volume fraction] 36.9 % Normal 36.0-46.0 [facility] Comment on above: Order Comment: Speci men Type: BLOOD SPECIMENOrdering Facility: [facility] Address: [address] [place] [address] Performed By: #### 5 7021-8 ####[facility] LABIA [id number] [place] [address] [place] Hemoglobin (Bld) [Mass/Vol] 11.1 g/dL Low 11.5-15.5 [facility] Comment on above: Order Comment: Speci men Type: BLOOD SPECIMENOrdering Facility: [facility] Address: [address] [place] [address] Performed By: #### 5 7021-8 ####[facility] LABCLIA [id number] [place] [address] [place] Immature granulocytes (Bld) [#/Vol] 10*3/uL Normal <0.10 [facility] Comment on above: Order Comment: Speci men Type: BLOOD SPECIMENOrdering Facility: [facility] Address: [address] [place] [address] Performed By: #### 5 7021-8 ####[facility] LABCLIA [id number] [place] [address] [place] Immature granulocytes/100 WBC (Bld) 0.3 % Normal [facility] Comment on above: Order Comment: Speci men Type: BLOOD SPECIMENOrdering Facility: [facility] Address: [address] [place] [address] Performed By: #### 5 7021-8 ####[facility] LABCLIA [id number] [place] [address] [place] Lymphocytes (Bld) [#/Vol] 2.13 10*3/uL Normal 1.00-4.00 [facility] Comment on above: Order Comment: Speci men Type: BLOOD SPECIMENOrdering Facility: [facility] Address: [address] [place] [address] Performed By: #### 5 7021-8 ####[facility] LABCLIA [id number] [place] [address] [place] Lymphocytes/100 WBC (Bld) 31.3 % Normal [facility] Comment on above: Order Comment: Speci men Type: BLOOD SPECIMENOrdering Facility: [facility] Address: [address] [place] [address] Performed By: #### 5 7021-8 ####[facility] LABCLIA [id number] [id number] [address] [place] MCH (RBC) [Entitic mass] 26.5 pg Normal 26.0-34.0 [facility] Comment on above: Order Comment: Speci men Type: BLOOD SPECIMENOrdering Facility: [facility] Address: [address] [place] [address] Performed By: #### 5 7021-8 ####[facility] LABCLIA [id number] [place] [address] [place] MCHC (RBC) [Mass/Vol] 30.1 g/dL Low 30.5-36.0 [facility] Comment on above: Order Comment: Speci men Type: BLOOD SPECIMENOrdering Facility: [facility] Address: [address] [place] [address] Performed By: #### 5 7021-8 ####[facility] LABIA [id number] [place] [address] [place] MCV (RBC) [Entitic vol] 88.1 fL Normal 80.0-100.0 [facility] Comment on above: Order Comment: Speci men Type: BLOOD SPECIMENOrdering Facility: [facility] Address: [address] [place] [address] Performed By: #### 5 7021-8 ####[facility] LABIA [id number] [place] [address] [place] Monocytes (Bld) [#/Vol] 0.44 10*3/uL Normal <0.87 [facility] Comment on above: Order Comment: Speci men Type: BLOOD SPECIMENOrdering Facility: [facility] Address: [address] [place] [address] Performed By: #### 5 7021-8 ####[facility] LABIA [id number] [address] [place] Monocytes/100 WBC (Bld) 6.5 % Normal [facility] Comment on above: Order Comment: Speci men Type: BLOOD SPECIMENOrdering Facility: [facility] Address: [address] [place] [address] Performed By: #### 5 7021-8 ####[facility] LABCLIA [id number] [place] [address] [place] Neutrophils (Bld) [#/Vol] 4.11 10*3/uL Normal 1.45-7.50 [facility] Comment on above: Order Comment: Speci men Type: BLOOD SPECIMENOrdering Facility: [facility] Address: [address] [place] [address] Performed By: #### 5 7021-8 ####[facility] LABCLIA [id number] [place] [address] [place] Neutrophils/100 WBC (Bld) 60.3 % Normal [facility] Comment on above: Order Comment: Speci men Type: BLOOD SPECIMENOrdering Facility: [facility] Address: [address] [place] [address] Performed By: #### 5 7021-8 ####[facility] LABCLIA [id number] [place] [address] [place] Nucleated RBC (Bld) [#/Vol] 10*3/uL Normal <0.01 [facility] Comment on above: Order Comment: Speci men Type: BLOOD SPECIMENOrdering Facility: [facility] Address: [address] [place] [address] Performed By: #### 5 7021-8 ####[facility] LABCLIA [id number] [place] [address] [place] Nucleated RBC/100 WBC (Bld) [Ratio] 0.0 /100 WBC Normal [facility] Comment on above: Order Comment: Speci men Type: BLOOD SPECIMENOrdering Facility: [facility] Address: [address] [place] [address] Performed By: #### 5 7021-8 ####[facility] LABCLIA [id number] [place] [address] [place] Platelet mean volume (Bld) [Entitic vol] 11.4 fL Normal 9.0-12.7 [facility] Comment on above: Order Comment: Speci men Type: BLOOD SPECIMENOrdering Facility: [facility] Address: [address] [place] [address] Performed By: #### 5 7021-8 ####[facility] LABIA [id number] [place] [address] [place] Platelets (Bld) [#/Vol] 308 10*3/uL Normal 150-400 [facility] Comment on above: Order Comment: Speci men Type: BLOOD SPECIMENOrdering Facility: [facility] Address: [address] [place] [address] Performed By: #### 5 7021-8 ####[facility] LABIA [id number] [place] [address] [place] RBC (Bld) [#/Vol] 4.19 10*6/uL Normal 3.90-5.20 [facility] Comment on above: Order Comment: Speci men Type: BLOOD SPECIMENOrdering Facility: [facility] Address: [address] [place] [address] Performed By: #### 5 7021-8 ####[facility] LABIA [id number] [place] [address] [place] WBC (Bld) [#/Vol] 6.81 10*3/uL Normal 3.70-11.00 [facility] Comment on above: Order Comment: Speci men Type: BLOOD SPECIMENOrdering Facility: [facility] Address: [address] [place] [address] Performed By: #### 5 7021-8 ####[facility] LABIA [id number] [place] [address] [place] CNOVon 10-05-2023 [facility] -------- MAGUI JIMENEZ ([id number]) 1945 F Date Time Provider Department 10/05/23 9:20 AM EMILIANO PELLETIER During your visit today, we recorded the following information about you: Temperature Pulse Respiration Blood pressure 97 degrees 80/minute 16/minute 146/84 Weight Height 60.3 kg 1.64 m Emiliano Pelletier, 10/05/2023 10:11 AM Signed Patient presents with: Medicare Wellness Exam HPI: Magui Jimenez is a 77 year old female who presents to the office today for review of health conditions. Concerns today: [employer] wellness visit and problem based visit 1 week ago started with flank pain right and left side, aching, sometimes sharp pains. No known injuries. Has been active with mopping floors but no known injuries. Has been using ice and heating pad and tylenol. Pain is up to a 7/10 on pain scale. Worse pain with movement. Right breast lump, diagnosed with breast CA, was seen by breast surgeon Dr. Menon, general surgeon Dr. Shaffer and [facility] DR. Winn in the last 4-5 years. Was told need surgical excision and chemotherapy/radiation would be needed. She stated at that time that she has thought about these options and I don't want to do any of it. I won't claim that I have breast cancer. I understand there is a lump there but I really believe as a Islam that I am at peace with this decision. Denies any breast pain or skin changes or nipple discharge. has been Refusing to treat it and understands risks involved. She still feels this same way and doesn't want to undergo chemotherapy or radiation treatment. She is willing to reconsider seeing the Breast surgeon/general surgeon for opinion, but refuses any chemo or radiation treatment. She states that her appetite is normal. she has been eating healthy foods and no junk foods Vitamin D deficiency, taking supplement regularly she states Hx of anemia, no bleeding or fatigue concerns. Tolerating her metformin- doesn't regularly check her blood glucose because she doesn't want to and she states that she feels well Denies any Blood in stools or severe joint pains or rashes. She is willing to have labs checked- these were ordered. Ms. Jimenez has past history of diabetes. Since our last visit she denies excessive thirst or increased frequency of urination, chest pain or dyspnea , new or unusual visual symptoms, and low sugar/hypoglycemic reactions. Depression- no. Follows a diabetic diet some of the time. She is compliant with medication(s) and is tolerating med(s) without any side effects. She reports checking her glucose on a once a day schedule with sugars in the fasting <150 range. Patient's last HgA1C was Hemoglobin A1C (%) Date Value 06/09/2023 6.9 06/04/2022 7.6 12/03/2020 7.1 04/18/2019 7.0 Hemoglobin A1C (POCT) (%) Date Value 06/06/2021 6.3 ) Last Ophthalmology exam was within the past 12 months Ms. Jimenez reports history of hyperlipidemia. Current therapy includes diet and exercise. Denies side effects of muscle weakness or achiness. Her most recent lipid panels are reviewed. Cholesterol, Total (mg/dL) Date Value 06/09/2023 163 12/03/2020 174 HDL Cholesterol (mg/dL) Date Value 06/09/2023 62 12/03/2020 50 LDL Cholesterol (mg/dL) Date Value 06/09/2023 90 12/03/2020 108 Triglyceride (mg/dL) Date Value 06/09/2023 54 12/03/2020 80 Ms. Jimenez indicates a history of hypertension and states that she is feeling well and denies any symptoms referable to elevated blood pressure. Specifically denies headache, chest pain, palpitations, dyspnea, and peripheral edema. Patient denies any side effects of her medication(s) and is compliant with their regimen. Last 3 Encounter BP Readings: Date: BP: 10/05/2023 146/84 06/09/2023 130/80 12/08/2022 130/80 She watches her diet for sodium, low fat and low cholesterol some of the time. She does not check BP's generally. Magui gets minimal exercise. PAST MEDICAL HISTORY 02/17/2004: Anemia, unspecified Comment: normocytic; iron, B12, folate, thyroid, hgb electrophereesis all WNL 02/20. Anemia did improve on supplemental iron. 02/16/2006: Degeneration of lumbar or lumbosacral intervertebral disc Comment: per xray 06/16/2005: Dermatophytosis of nail Comment: Lamisil tx per Dr. Stuart No date: Diabetic peripheral neuropathy (HCC) No date: Elevated sedimentation rate No date: Essential hypertension, benign 03/19/2004: Macular degeneration (senile) of retina, unspecified Comment: macular edema from diabetic retinopathy with best corrected vision 20/50. Sees retinal specialist Dr. Haroon Claros 02/2020: Malignant neoplasm of overlapping sites of right female breast (HCC) 11/16/2005: Nonspecific (abnormal) findings on radiological and other examination of skull and head Comment: MRI brain: left pituitary enlargemen (more content not included)... Normal [facility] Comprehensive metabolic 2000 panelon 10-05-2023 Albumin [Mass/Vol] 4.0 g/dL Normal 3.9-4.9 [facility] Comment on above: Order Comment: Speci men Type: BLOOD SPECIMENOrdering Facility: [facility] Address: [address] [place] [address] Performed By: #### 2 4323-8 ####[facility] LABIA [id number] [place] [address] [place] ALP [Catalytic activity/Vol] 79 U/L Normal 34-123 [facility] Comment on above: Order Comment: Speci men Type: BLOOD SPECIMENOrdering Facility: [facility] Address: [address] [place] [address] Performed By: #### 2 4323-8 ####[facility] LABIA [id number] [place] [address] [place] ALT [Catalytic activity/Vol] 9 U/L Normal 7-38 [facility] Comment on above: Order Comment: Speci men Type: BLOOD SPECIMENOrdering Facility: [facility] Address: [address] [place] [address] Performed By: #### 2 4323-8 ####[facility] LABCLIA [id number] [place] [address] [place] Anion gap [Moles/Vol] 10 mmol/L Normal 8-15 [facility] Comment on above: Order Comment: Speci men Type: BLOOD SPECIMENOrdering Facility: [facility] Address: [address] [place] [address] Performed By: #### 2 4323-8 ####[facility] LABCLIA [id number] [place] [address] [place] AST [Catalytic activity/Vol] 22 U/L Normal 13-35 [facility] Comment on above: Order Comment: Speci men Type: BLOOD SPECIMENOrdering Facility: [facility] Address: [address] [place] [address] Performed By: #### 2 4323-8 ####[facility] LABCLIA [id number] [place] [address] [place] Bilirubin [Mass/Vol] 0.2 mg/dL Normal 0.2-1.3 [facility] Comment on above: Order Comment: Speci men Type: BLOOD SPECIMENOrdering Facility: [facility] Address: [address] [place] [address] Performed By: #### 2 4323-8 ####[facility] LABCLIA [id number] [place] [address] [place] Calcium [Mass/Vol] 9.3 mg/dL Normal 8.5-10.2 [facility] Comment on above: Order Comment: Speci men Type: BLOOD SPECIMENOrdering Facility: [facility] Address: [address] [place] [address] Performed By: #### 2 4323-8 ####[facility] LABCLIA [id number] [place] [address] [place] Chloride [Moles/Vol] 105 mmol/L Normal 98-107 [facility] Comment on above: Order Comment: Speci men Type: BLOOD SPECIMENOrdering Facility: [facility] Address: [address] [place] [address] Performed By: #### 2 4323-8 ####[facility] LABCLIA [id number] [place] [id number] [place] CO2 [Moles/Vol] 25 mmol/L Normal 22-30 [facility] Comment on above: Order Comment: Speci men Type: BLOOD SPECIMENOrdering Facility: [facility] Address: [address] [place] [address] Performed By: #### 2 4323-8 ####[facility] LABIA [id number] [address] [place] OF [facility] Creatinine [Mass/Vol] 0.75 mg/dL Normal 0.58-0.96 [facility] Comment on above: Order Comment: Speci men Type: BLOOD SPECIMENOrdering Facility: [facility] Address: [address] [place] [address] Performed By: #### 2 4323-8 ####[facility] LABIA [id number] [address] Creatinine and Glomerular filtration rate.predicted panel (S/P/Bld) 82 mL/min/1.73m??? Normal >=60 [facility] Comment on above: Order Comment: Speci men Type: BLOOD SPECIMENOrdering Facility: [facility] Address: [address] [place] [address] Result Comment: Ashly mated Glomerular Filtration Rate (eGFR) is calculated using the 2020 CKD-EPI creatinine equation. This equation utilizes serum creatinine, sex, and age as parameters. The creatinine assay has traceable calibration to isotope dilution-mass spectrometry. Refer to KDIGO guidelines for clinical interpretation. In patients with unstable renal function, e.g. those with acute kidney injury, the eGFR may not accurately reflect actual GFR. Performed By: #### 2 4323-8 ####[facility] LABCLIA [id number] [place] [address] [place] Glucose [Mass/Vol] 116 mg/dL High 74-99 [facility] Comment on above: Order Comment: Speci men Type: BLOOD SPECIMENOrdering Facility: [facility] Address: [address] [place] [address] Result Comment: The [place] Diabetes Association (ADA) provides guidance for cutoff values for fasting glucose and random glucose. The ADA defines fasting as no caloric intake for at least 8 hours. Fasting plasma glucose results between 100 to 125 mg/dL indicate increased risk for diabetes (prediabetes). Fasting plasma glucose results greater than or equal to 126 mg/dL meet the criteria for diagnosis of diabetes. In the absence of unequivocal hyperglycemia, results should be confirmed by repeat testing. In a patient with classic symptoms of hyperglycemia or hyperglycemic crisis, random plasma glucose results greater than or equal to 200 mg/dL meet the criteria for diagnosis of diabetes. Reference: Standards of Medical Care in Diabetes 2016, [place] Diabetes Association. Diabetes Care. 2016.39(Suppl 1). Performed By: #### 2 4323-8 ####[facility] LABCLIA [id number] [place] [address] [place] Potassium [Moles/Vol] 4.8 mmol/L Normal 3.7-5.1 [facility] Comment on above: Order Comment: Speci men Type: BLOOD SPECIMENOrdering Facility: [facility] Address: [address] [place] [address] Performed By: #### 2 4323-8 ####[facility] LABIA [id number] [place] [address] [place] Protein [Mass/Vol] 7.3 g/dL Normal 6.3-8.0 [facility] Comment on above: Order Comment: Speci men Type: BLOOD SPECIMENOrdering Facility: [facility] Address: [address] [place] [address] Performed By: #### 2 4323-8 ####[facility] LABCLIA [id number] [place] [address] [place] Sodium [Moles/Vol] 140 mmol/L Normal 136-144 [facility] Comment on above: Order Comment: Speci men Type: BLOOD SPECIMENOrdering Facility: [facility] Address: [address] [place] [address] Performed By: #### 2 4323-8 ####[facility] LABCLIA [id number] [place] [address] [place] Urea nitrogen [Mass/Vol] 12 mg/dL Normal 7-21 [facility] Comment on above: Order Comment: Speci men Type: BLOOD SPECIMENOrdering Facility: [facility] Address: [address] [place] [address] Performed By: #### 2 4323-8 ####[facility] LABIA [id number] [place] [address] [place] HbA1c (Bld)on 10-05-2023 Average glucose Estimated from glycated hemoglobin (Bld) [Mass/Vol] 157 mg/dL Normal [facility] Comment on above: Order Comment: Speci men Type: BLOOD SPECIMENOrdering Facility: [facility] Address: [address] [place] [address] Result Comment: eAG: (Estimated average glucose) is a calculated value from HgbA1c and is sales representative [employer] of the average blood glucose level in the last 2-3 month period. Performed By: #### 5 5454-3 ####[facility] LABIA [id number] [place] [address] [place] HbA1c (Bld) [Mass fraction] 7.1 % High 4.3-5.6 [facility] Comment on above: Order Comment: Speci men Type: BLOOD SPECIMENOrdering Facility: [facility] Address: [address] [place] [address] Result Comment: [place] Diabetes Association guidelines indicate that patients with HgbA1c in the range 5.7-6.4% are at increased risk for development of diabetes, and intervention by lifestyle modification may be beneficial. HgbA1c greater or equal to 6.5% is considered diagnostic of diabetes. Performed By: #### 5 5454-3 ####[facility] LABCLIA [id number] [place] [address] [place] Urinalysis complete panel (U )on 10-05-2023 Bacteria LM.HPF (Urine sed) [#/Area] Negative Normal Negative [facility] Comment on above: Order Comment: Speci men Type: URINE SPECIMENOrdering Facility: [facility] Address: [address] [place] [address] Performed By: #### 2 4356-8 ####[facility] LABIA [id number] [place] [address] [place] Bilirubin Ql (U) Negative Normal Negative [facility] Comment on above: Order Comment: Speci men Type: URINE SPECIMENOrdering Facility: [facility] Address: [address] [place] [address] Performed By: #### 2 4356-8 ####[facility] LABIA [id number] [place] [address] [place] Clarity (Unsp spec) Clear Normal Clear [facility] Comment on above: Order Comment: Speci men Type: URINE SPECIMENOrdering Facility: [facility] Address: [address] [place] [address] Performed By: #### 2 4356-8 ####[facility] LABIA [id number] [address] STATES OF [facility] Color (U) Yellow Normal Yellow [facility] Comment on above: Order Comment: Speci men Type: URINE SPECIMENOrdering Facility: [facility] Address: [address] [place] [address] Performed By: #### 2 4356-8 ####[facility] LABCLIA [id number] [address] [place] Epithelial cells LM.HPF (Urine sed) [#/Area] Few Normal [facility] Comment on above: Order Comment: Speci men Type: URINE SPECIMENOrdering Facility: [facility] Address: [address] [place] [address] Performed By: #### 2 4356-8 ####[facility] LABCLIA [id number] [place] [address] [place] Glucose Test strip (U) [Mass/Vol] Negative Normal Negative [facility] Comment on above: Order Comment: Speci men Type: URINE SPECIMENOrdering Facility: [facility] Address: [address] [place] [address] Performed By: #### 2 4356-8 ####[facility] LABCLIA [id number] [place] [address] [place] Hemoglobin Ql (U) Negative Normal Negative [facility] Comment on above: Order Comment: Speci men Type: URINE SPECIMENOrdering Facility: [facility] Address: [address] [place] [address] Performed By: #### 2 4356-8 ####[facility] LABCLIA [id number] [place] [address] [place] Hyaline casts (Urine sed) [#/Area] 1-3 /LPF Abnormal 0 /LPF [facility] Comment on above: Order Comment: Speci men Type: URINE SPECIMENOrdering Facility: [facility] Address: [address] [place] [address] Performed By: #### 2 4356-8 ####[facility] LABCLIA [id number] [place] [address] [place] Ketones Ql (U) Negative Normal Negative [facility] Comment on above: Order Comment: Speci men Type: URINE SPECIMENOrdering Facility: [facility] Address: [address] [place] [address] Performed By: #### 2 4356-8 ####[facility] LABCLIA [id number] [place] [address] [place] Leukocyte esterase Test strip Ql (U) Negative Normal Negative [facility] Comment on above: Order Comment: Speci men Type: URINE SPECIMENOrdering Facility: [facility] Address: [address] [place] [address] Performed By: #### 2 4356-8 ####[facility] LABCLIA [id number] [place] [address] [place] Nitrite Ql (U) Negative Normal Negative [facility] Comment on above: Order Comment: Speci men Type: URINE SPECIMENOrdering Facility: [facility] Address: [address] [place] [address] Performed By: #### 2 4356-8 ####[facility] LABCLIA [id number] [place] [address] [place] pH (U) 6.0 [pH] Normal <8.5 [facility] Comment on above: Order Comment: Speci men Type: URINE SPECIMENOrdering Facility: [facility] Address: [address] [place] [address] Performed By: #### 2 4356-8 ####[facility] LABCLIA [id number] [place] [address] [place] Protein (U) [Mass/Vol] Negative Normal Negative [facility] Comment on above: Order Comment: Speci men Type: URINE SPECIMENOrdering Facility: [facility] Address: [address] [place] [address] Performed By: #### 2 4356-8 ####[facility] LABCLIA [id number] [place] [address] [place] RBC LM.HPF (Urine sed) [#/Area] 3-5 /HPF Abnormal 0-2 /HPF [facility] Comment on above: Order Comment: Speci men Type: URINE SPECIMENOrdering Facility: [facility] Address: [address] [place] [address] Performed By: #### 2 4356-8 ####[facility] LABIA [id number] [place] [address] [place] Specific gravity (U) [Rel density] 1.018 Normal 1.005-1.030 [facility] Comment on above: Order Comment: Speci men Type: URINE SPECIMENOrdering Facility: [facility] Address: [address] [place] [address] Performed By: #### 2 4356-8 ####[facility] [id number] [place] [address] [place] Urobilinogen Ql (U) 1.0 EU/dL Normal 0.2-1.0 EU/dL [facility] Comment on above: Order Comment: Speci men Type: URINE SPECIMENOrdering Facility: [facility] Address: [address] [place] [address] Performed By: #### 2 4356-8 ####[facility] [id number] [place] [address] [place] WBC LM.HPF (Urine sed) [#/Area] 0-5 /HPF Normal 0-5 /HPF [facility] Comment on above: Order Comment: Speci men Type: URINE SPECIMENOrdering Facility: [facility] Address: [address] [place] [address] Performed By: #### 2 4356-8 ####[facility] [id number] [address] [place] CNPJuanita 06-26-2023 CNPN Telephone (FAMPWS) -------- MAGUI JIMENEZ ([id number]) 1945 F Date Time Provider Department 06/26/23 EMILIANO PELLETIER FAMPWS During your visit today, we recorded the following information about you: Livier Benito 06/26/2023 10:47 AM Signed Magui is calling in. She states iron was sent to the wrong pharmacy. She is asking it be re-sent to [facility]. Pended location changed and [facility] removed from preferred list. Jared Chen APRN.SANDEEP 06/26/2023 11:58 AM Signed The following approved medication requests have been transmitted electronically. Requested Prescriptions Signed Prescriptions Disp Refills ferrous sulfate (SLOW FE) 137 mg (45 mg iron) TbER 90 tablet 2 Sig: Take 137 mg by mouth once daily. Authorizing Provider: EMILIANO PELLETIER Ordering User: JARED CHEN APRN.CNP Holiday, [place], [place] 06/26/2023 12:12 PM Signed Pt informed, verbalized understanding. Raissa Vazquez MA Allergies As of Date: 06/26/2023 Noted Allergy Reaction LOVASTATIN 12/21/2007 2 - Rash nylon stockings [Other] 05/21/2006 2 - Rash VICODIN (HYDROCODONE-ACETAMINOPH E*11/20/2005 5 - Intolerance Comments: vomiting, nausea, unsteady Date Reviewed: 06/09/2023 Reviewed by: Janet Montoya LPN - Fully Assessed Reason for Visit: Medication Problem [65] Order(s):ferrous sulfate (SLOW FE) 137 mg (45 mg iron) TbERTake 137 mg by mouth once daily.Disp: 90 tabletRfl: 2 Prescriptions as of 06/26/2023 - ferrous sulfate (SLOW FE) 137 mg (45 mg iron) TbER Take 137 mg by mouth once daily. - metFORMIN (GLUCOPHAGE) 1,000 mg tablet Take 1 tablet by mouth two times a day with meals. - enalapril (VASOTEC) 20 mg tablet Take 1 tablet by mouth two times a day. - blood sugar diagnostic (BLOOD GLUCOSE TEST) test strip Test blood sugar(s) 2 times daily. Dx: Type 2 DM - Uncontrolled E11.65 Insulin: No - Lancets lancets Test blood sugar(s) 2 times daily. Dx: Type 2 DM - Uncontrolled E11.65 Insulin: No - VITAMIN A ORAL Take 1 tablet by mouth as needed. - CALCIUM-VITAMIN D3 ORAL Take 1 tablet by mouth once daily. - acetaminophen (TYLENOL EXTRA STRENGTH) 500 mg tablet Take 500 mg by mouth as needed. - omega-3/dha/epa/dpa/fish oil (OMEGA-3 2100 ORAL) Take 1 tablet by mouth twice daily. - Lancets lancets Test blood sugar(s) 3 times daily. Dx: Type 2 DM - Controlled E11.9 Insulin: No - blood sugar diagnostic (BLOOD GLUCOSE TEST) test strip Test blood sugar(s) 3 times daily. Dx: Type 2 DM - Controlled E11.9 Insulin: No - nystatin (MYCOSTATIN) powder Apply 1 application to affected area twice daily as needed (itching between breasts). - Blood Pressure Cuff - Home Use BLOOD PRESSURE CUFF FOR HOME USE. DX: I10 - sb-zj-rjyk-FA-Ca carb-vit K (ONE-A-DAY WOMENS FORMULA) 18 mg iron-400 mcg-500 mg tab Take 1 tablet by mouth once daily. - cyanocobalamin (VITAMIN B-12) 1,000 mcg tab Take 1 tablet by mouth once daily. - Aspirin 81 mg Tab Take 1 tablet by mouth once daily. Meds Comments as of 01/23/2020: Fish Oil bid daily and Vitamin C prn. Problem List As Of Date 06/26/2023 Noted Resolved ANEMIA NOS [D64.9] Essential hypertension, benign [I10] Type 2 diabetes mellitus with diabetic neuropat*03/21/2005 Unspecified hereditary and idiopathic periphera*05/27/2005 06/03/2021 Dermatophytosis of nail [B35.1] 05/27/2005 08/24/2017 Other specified disorder of skin [L98.8] 03/11/2006 08/24/2017 Pain in limb [M79.609] 05/20/2006 08/24/2017 Pure hypercholesterolemia [E78.00] 05/09/2015 08/24/2017 Choledocholithiasis [K80.50] 05/09/2016 08/24/2017 History of cholecystectomy [Z90.49] 05/16/2016 08/24/2017 Gallstone (impacted) [K80.20] 05/16/2016 08/24/2017 Elevated liver enzymes [R74.8] 05/16/2016 Intertrigo [L30.4] 09/29/2018 Pure hypercholesterolemia [E78.00] 09/29/2018 Malignant neoplasm of upper-outer quadrant of r*03/06/2020 Vitamin D deficiency [E55.9] 12/04/2020 Controlled type 2 diabetes mellitus with compli*06/03/2021 Vitamin B12 deficiency [E53.8] 06/06/2022 Uncontrolled type 2 diabetes mellitus with hype*06/06/2022 Anemia [D64.9] 12/10/2022 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 Medications Discontinued During This Encounter Prescriptions - ferrous sulfate (SLOW FE) 137 mg (45 mg iron) TbER (Discontinued) Take 137 mg by mouth once daily. Encounter Status:Closed by RAISSA VAZQUEZ on 06/26/23 [facility] -------- MAGUI JIMENEZ ([id number]) 1945 F Date Time Provider Department 06/25/23 [facility]ELLETIER [facility] During your visit today, we recorded the following information about you: Emiliano Pelletier, DO 06/25/2023 11:21 AM Signed Please inform patient that her labs show that her A1c is at 6.9% which is pretty good for her diabetes control. Keep up the good work! Her hemoglobin is low at 11.4 and iron levels are slightly low. She needs to be taking iron supplement such as slo fe with 45-67mg of iron in it once a day with a meal DO Edith Tom [place], [place] 06/25/2023 11:52 AM Signed Pt informed, verbalized understanding. Please send script to [facility] in [place]. BE Garcias Alyson, APRN.SANDEEP 06/25/2023 12:36 PM Signed The following approved medication requests have been transmitted electronically. Requested Prescriptions Signed Prescriptions Disp Refills ferrous sulfate (SLOW FE) 137 mg (45 mg iron) TbER 90 tablet 2 Sig: Take 137 mg by mouth once daily. Authorizing Provider: KIRSTEN LATHAM APRN.COM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 Allergies As of Date: 06/25/2023 Noted Allergy Reaction LOVASTATIN 12/21/2007 2 - Rash nylon stockings [Other] 05/21/2006 2 - Rash VICODIN (HYDROCODONE-ACETAMINOPH E*11/20/2005 5 - Intolerance Comments: vomiting, nausea, unsteady Date Reviewed: 06/09/2023 Reviewed by: Janet Montoya LPN - Fully Assessed Order(s):ferrous sulfate (SLOW FE) 137 mg (45 mg iron) TbERTake 137 mg by mouth once daily.Disp: 90 tabletRfl: 2 Prescriptions as of 06/25/2023 - ferrous sulfate (SLOW FE) 137 mg (45 mg iron) TbER Take 137 mg by mouth once daily. - metFORMIN (GLUCOPHAGE) 1,000 mg tablet Take 1 tablet by mouth two times a day with meals. - enalapril (VASOTEC) 20 mg tablet Take 1 tablet by mouth two times a day. - blood sugar diagnostic (BLOOD GLUCOSE TEST) test strip Test blood sugar(s) 2 times daily. Dx: Type 2 DM - Uncontrolled E11.65 Insulin: No - Lancets lancets Test blood sugar(s) 2 times daily. Dx: Type 2 DM - Uncontrolled E11.65 Insulin: No - VITAMIN A ORAL Take 1 tablet by mouth as needed. - CALCIUM-VITAMIN D3 ORAL Take 1 tablet by mouth once daily. - acetaminophen (TYLENOL EXTRA STRENGTH) 500 mg tablet Take 500 mg by mouth as needed. - omega-3/dha/epa/dpa/fish oil (OMEGA-3 2100 ORAL) Take 1 tablet by mouth twice daily. - Lancets lancets Test blood sugar(s) 3 times daily. Dx: Type 2 DM - Controlled E11.9 Insulin: No - blood sugar diagnostic (BLOOD GLUCOSE TEST) test strip Test blood sugar(s) 3 times daily. Dx: Type 2 DM - Controlled E11.9 Insulin: No - nystatin (MYCOSTATIN) powder Apply 1 application to affected area twice daily as needed (itching between breasts). - Blood Pressure Cuff - Home Use BLOOD PRESSURE CUFF FOR HOME USE. DX: I10 - iw-qj-arub-FA-Ca carb-vit K (ONE-A-DAY WOMENS FORMULA) 18 mg iron-400 mcg-500 mg tab Take 1 tablet by mouth once daily. - cyanocobalamin (VITAMIN B-12) 1,000 mcg tab Take 1 tablet by mouth once daily. - Aspirin 81 mg Tab Take 1 tablet by mouth once daily. Meds Comments as of 01/23/2020: Fish Oil bid daily and Vitamin C prn. Problem List As Of Date 06/25/2023 Noted Resolved ANEMIA NOS [D64.9] Essential hypertension, benign [I10] Type 2 diabetes mellitus with diabetic neuropat*03/21/2005 Unspecified hereditary and idiopathic periphera*05/27/2005 06/03/2021 Dermatophytosis of nail [B35.1] 05/27/2005 08/24/2017 Other specified disorder of skin [L98.8] 03/11/2006 08/24/2017 Pain in limb [M79.609] 05/20/2006 08/24/2017 Pure hypercholesterolemia [E78.00] 05/09/2015 08/24/2017 Choledocholithiasis [K80.50] 05/09/2016 08/24/2017 History of cholecystectomy [Z90.49] 05/16/2016 08/24/2017 Gallstone (impacted) [K80.20] 05/16/2016 08/24/2017 Elevated liver enzymes [R74.8] 05/16/2016 Intertrigo [L30.4] 09/29/2018 Pure hypercholesterolemia [E78.00] 09/29/2018 Malignant neoplasm of upper-outer quadrant of r*03/06/2020 Vitamin D deficiency [E55.9] 12/04/2020 Controlled type 2 diabetes mellitus with compli*06/03/2021 Vitamin B12 deficiency [E53.8] 06/06/2022 Uncontrolled type 2 diabetes mellitus with hype*06/06/2022 Anemia [D64.9] 12/10/2022 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 Encounter Status:Closed by TIANA GARY on 06/25/23 Normal [facility] 25(OH)D3 SerPl-ncon 2023 25-hydroxyvitamin D3 [Mass/Vol] 57.4 ng/mL Normal 31.0-80.0 [facility] Comment on above: Order Comment: Speci men Type: BLOOD SPECIMENOrdering Facility: [facility] Address: [address] [place] [address] Result Comment: Clas sification of 25 [place] Vitamin D status: Deficiency/Insufficiency: < or = 30 ng/ml. Sufficiency/Optimal Levels: 31-80 ng/mL Toxicity: > 100 ng/mL. Test performed by chemiluminescent immunoassay. Performed By: #### 1 989-3 ####[facility] LABCLIA [id number] [place] [address] [place] 25-hydroxyvitamin D3 [Mass/V ol]on 06-09-2023 Interpretation and review of laboratory results Normal [facility] The reference range interval was based on an analysis of samples from healthy adults and may not pertain to children from 0-18 years old. [facility] CBC W Auto Differential pane l (Bld)on 06-09-2023 Basophils (Bld) [#/Vol] [facility] Basophils/100 WBC (Bld) 0.4 % [facility] Differential cell count method Nom (Bld) Auto [facility] Eosinophils (Bld) [#/Vol] 0.10 10*3/uL [facility] Eosinophils/100 WBC (Bld) 1.9 % [facility] Erythrocyte distribution width (RBC) [Ratio] 15.3 % High 11.5 - 15.0 % [facility] Hematocrit (Bld) [Volume fraction] 37.4 % 36.0 - 46.0 % [facility] Hemoglobin (Bld) [Mass/Vol] 11.4 g/dL Low 11.5 - 15.5 g/dL [facility] Immature granulocytes (Bld) [#/Vol] 0.03 10*3/uL [facility] Immature granulocytes/100 WBC (Bld) 0.6 % [facility] Interpretation and review of laboratory results Abnormal [facility] Lymphocytes (Bld) [#/Vol] 2.10 10*3/uL [facility] Lymphocytes/100 WBC (Bld) 39.9 % [facility] MCH (RBC) [Entitic mass] 26.4 pg 26.0 - 34.0 pg [facility] MCHC (RBC) [Mass/Vol] 30.5 g/dL 30.5 - 36.0 g/dL [facility] MCV (RBC) [Entitic vol] 86.6 fL 80.0 - 100.0 fL [facility] Monocytes (Bld) [#/Vol] 0.42 10*3/uL [facility] Monocytes/100 WBC (Bld) 8.0 % [facility] Neutrophils (Bld) [#/Vol] 2.59 10*3/uL [facility] Neutrophils/100 WBC (Bld) 49.2 % [facility] Nucleated RBC (Bld) [#/Vol] [facility] Nucleated RBC/100 WBC (Bld) [Ratio] 0.0 % /100 WBC [facility] Platelet mean volume (Bld) [Entitic vol] 11.5 fL 9.0 - 12.7 fL [facility] Platelets (Bld) [#/Vol] 366 10*3/uL [facility] RBC (Bld) [#/Vol] 4.32 10*6/uL 3.90 - 5.2 0 m/uL [facility] WBC (Bld) [#/Vol] 5.26 10*3/uL [facility] Basophils (Bld) [#/Vol] 10*3/uL Normal <0.11 [facility] Comment on above: Order Comment: Speci men Type: BLOOD SPECIMENOrdering Facility: [facility] Address: [address] [place] [address] Performed By: #### 5 7021-8 ####[facility] LABCLIA [id number] [place] [address] [place] Basophils/100 WBC (Bld) 0.4 % Normal [facility] Comment on above: Order Comment: Speci men Type: BLOOD SPECIMENOrdering Facility: [facility] Address: [address] [place] [address] Performed By: #### 5 7021-8 ####[facility] LABCLIA [id number] [place] [address] [place] Differential cell count method Nom (Bld) Auto Normal [facility] Comment on above: Order Comment: Speci men Type: BLOOD SPECIMENOrdering Facility: [facility] Address: [address] [place] [address] Performed By: #### 5 7021-8 ####[facility] LABCLIA [id number] [place] [address] [place] Eosinophils (Bld) [#/Vol] 0.10 10*3/uL Normal <0.46 [facility] Comment on above: Order Comment: Speci men Type: BLOOD SPECIMENOrdering Facility: [facility] Address: [address] [place] [address] Performed By: #### 5 7021-8 ####[facility] LABCLIA [id number] [place] [address] [place] Eosinophils/100 WBC (Bld) 1.9 % Normal [facility] Comment on above: Order Comment: Speci men Type: BLOOD SPECIMENOrdering Facility: [facility] Address: [address] [place] [address] Performed By: #### 5 7021-8 ####[facility] LABCLIA [id number] [place] [address] [place] Erythrocyte distribution width (RBC) [Ratio] 15.3 % High 11.5-15.0 [facility] Comment on above: Order Comment: Speci men Type: BLOOD SPECIMENOrdering Facility: [facility] Address: [facility] [place] [address] Performed By: #### 5 7021-8 ####[facility] LABCLIA [id number] [place] [address] [place] Hematocrit (Bld) [Volume fraction] 37.4 % Normal 36.0-46.0 [facility] Comment on above: Order Comment: Speci men Type: BLOOD SPECIMENOrdering Facility: [facility] Address: [address] [place] [address] Performed By: #### 5 7021-8 ####[facility] LABCLIA [id number] [place] [address] [place] Hemoglobin (Bld) [Mass/Vol] 11.4 g/dL Low 11.5-15.5 [facility] Comment on above: Order Comment: Speci men Type: BLOOD SPECIMENOrdering Facility: [facility] Address: [address] [place] [address] Performed By: #### 5 7021-8 ####[facility] LABIA [id number] [place] [address] [place] Immature granulocytes (Bld) [#/Vol] 0.03 10*3/uL Normal <0.10 [facility] Comment on above: Order Comment: Speci men Type: BLOOD SPECIMENOrdering Facility: [facility] Address: [address] [place] [address] Performed By: #### 5 7021-8 ####[facility] LABCLIA [id number] [place] [address] [place] Immature granulocytes/100 WBC (Bld) 0.6 % Normal [facility] Comment on above: Order Comment: Speci men Type: BLOOD SPECIMENOrdering Facility: [facility] Address: [address] [place] [address] Performed By: #### 5 7021-8 ####[facility] LABCLIA [id number] [place] [address] [place] Lymphocytes (Bld) [#/Vol] 2.10 10*3/uL Normal 1.00-4.00 [facility] Comment on above: Order Comment: Speci men Type: BLOOD SPECIMENOrdering Facility: [facility] Address: [address] [place] [address] Performed By: #### 5 7021-8 ####[facility] LABCLIA [id number] [place] [address] [place] Lymphocytes/100 WBC (Bld) 39.9 % Normal [facility] Comment on above: Order Comment: Speci men Type: BLOOD SPECIMENOrdering Facility: [facility] Address: [address] [place] [address] Performed By: #### 5 7021-8 ####[facility] LABCLIA [id number] [place] [address] [place] MCH (RBC) [Entitic mass] 26.4 pg Normal 26.0-34.0 [facility] Comment on above: Order Comment: Speci men Type: BLOOD SPECIMENOrdering Facility: [facility] Address: [address] [place] [address] Performed By: #### 5 7021-8 ####[facility] LABCLIA [id number] [place] [address] [place] MCHC (RBC) [Mass/Vol] 30.5 g/dL Normal 30.5-36.0 [facility] Comment on above: Order Comment: Speci men Type: BLOOD SPECIMENOrdering Facility: [facility] Address: [address] [place] [address] Performed By: #### 5 7021-8 ####[facility] LABCLIA [id number] [place] [address] [place] MCV (RBC) [Entitic vol] 86.6 fL Normal 80.0-100.0 [facility] Comment on above: Order Comment: Speci men Type: BLOOD SPECIMENOrdering Facility: [facility] Address: [address] [place] [address] Performed By: #### 5 7021-8 ####[facility] LABCLIA [id number] [place] [address] [place] Monocytes (Bld) [#/Vol] 0.42 10*3/uL Normal <0.87 [facility] Comment on above: Order Comment: Speci men Type: BLOOD SPECIMENOrdering Facility: [facility] Address: [address] [place] [address] Performed By: #### 5 7021-8 ####[facility] LABCLIA [id number] [place] [address] [place] Monocytes/100 WBC (Bld) 8.0 % Normal [facility] Comment on above: Order Comment: Speci men Type: BLOOD SPECIMENOrdering Facility: [facility] Address: [address] [place] [address] Performed By: #### 5 7021-8 ####[facility] LABCLIA [id number] [place] [address] [place] Neutrophils (Bld) [#/Vol] 2.59 10*3/uL Normal 1.45-7.50 [facility] Comment on above: Order Comment: Speci men Type: BLOOD SPECIMENOrdering Facility: [facility] Address: [address] [place] [address] Performed By: #### 5 7021-8 ####[facility] LABCLIA [id number] [place] [address] [place] Neutrophils/100 WBC (Bld) 49.2 % Normal [facility] Comment on above: Order Comment: Speci men Type: BLOOD SPECIMENOrdering Facility: [facility] Address: [address] [place] [address] Performed By: #### 5 7021-8 ####[facility] LABCLIA [id number] [place] [address] [place] Nucleated RBC (Bld) [#/Vol] 10*3/uL Normal <0.01 [facility] Comment on above: Order Comment: Speci men Type: BLOOD SPECIMENOrdering Facility: [facility] Address: [address] [place] [address] Performed By: #### 5 7021-8 ####[facility] LABCLIA [id number] [place] [address] [place] Nucleated RBC/100 WBC (Bld) [Ratio] 0.0 /100 WBC Normal [facility] Comment on above: Order Comment: Speci men Type: BLOOD SPECIMENOrdering Facility: [facility] Address: [address] [place] [address] Performed By: #### 5 7021-8 ####[facility] LABIA [id number] [place] [address] [place] Platelet mean volume (Bld) [Entitic vol] 11.5 fL Normal 9.0-12.7 [facility] Comment on above: Order Comment: Speci men Type: BLOOD SPECIMENOrdering Facility: [facility] Address: [address] [place] [address] Performed By: #### 5 7021-8 ####[facility] LABCLIA [id number] [place] [address] [place] Platelets (Bld) [#/Vol] 366 10*3/uL Normal 150-400 [facility] Comment on above: Order Comment: Speci men Type: BLOOD SPECIMENOrdering Facility: [facility] Address: [address] [place] [address] Performed By: #### 5 7021-8 ####[facility] LABCLIA [id number] [place] [address] [place] RBC (Bld) [#/Vol] 4.32 10*6/uL Normal 3.90-5.20 [facility] Comment on above: Order Comment: Speci men Type: BLOOD SPECIMENOrdering Facility: [facility] Address: [address] [place] [address] Performed By: #### 5 7021-8 ####[facility] LABCLIA [id number] [place] [address] [place] WBC (Bld) [#/Vol] 5.26 10*3/uL Normal 3.70-11.00 [facility] Comment on above: Order Comment: Speci men Type: BLOOD SPECIMENOrdering Facility: [facility] Address: [address] [place] [address] Performed By: #### 5 7021-8 ####[facility] LABCLIA [id number] [address] [place] CNOVon 06-09-2023 CNOV Office Visit (FAMPWS ) -------- TONYMAGUI Stephanie ([id number]) 1945 F Date Time Provider Department 06/09/23 9:00 AM EMILIANO PELLETIER FAMPWS During your visit today, we recorded the following information about you: Temperature Pulse Respiration Blood pressure 97.2 degrees 80/minute 20/minute 130/80 Weight 59.4 kg Emiliano Pelletier DO 06/09/2023 9:36 AM Signed Patient presents with: 6 Month Exam HPI: Magui Jimenez is a 77 year old female who presents to the office today for review of health conditions. Concerns today: Right breast lump, diagnosed with breast CA, was seen by breast surgeon, general surgeon and [facility] in the last 4-5 years. Was told need surgical excision and chemotherapy/radiation would be needed. She stated at that time that she has thought about these options and I don't want to do any of it. I won't claim that I have breast cancer. I understand there is a lump there but I really believe as a Islam that I am at peace with this decision. Denies any breast pain or skin changes or nipple discharge. Refuses to treat it and understands risks involved. She still feels this same way and doesn't want to undergo any procedures such as surgery for this cancer, chemotherapy or radiation treatment. She still denies any new symptoms or pain in the breast She states that her appetite is normal. She has lost 8-9 lbs in the last 1 year. She states that this is because she has been eating healthy foods and no junk foods. Vitamin D deficiency, taking supplement regularly she states Hx of anemia, no bleeding or fatigue concerns. Tolerating her metformin- doesn't regularly check her blood glucose because she doesn't want to and she states that she feels well Denies any Blood in stools or severe joint pains or rashes. She is willing to have labs checked- these were ordered. Ms. Jimenez has past history of diabetes. Since our last visit she denies excessive thirst or increased frequency of urination, chest pain or dyspnea , new or unusual visual symptoms, and low sugar/hypoglycemic reactions. Depression- no. Follows a diabetic diet some of the time. She is compliant with medication(s) and is tolerating med(s) without any side effects. She reports checking her glucose on a infrequent to not at all basis schedule. Patient's last HgA1C was Hemoglobin A1C (%) Date Value 06/04/2022 7.6 12/03/2020 7.1 04/18/2019 7.0 Hemoglobin A1C (POCT) (%) Date Value 06/06/2021 6.3 ) Ms. Jimenez reports history of hyperlipidemia. Current therapy includes diet and exercise. Denies side effects of muscle weakness or achiness. Her most recent lipid panels are reviewed. Cholesterol, Total (mg/dL) Date Value 06/04/2022 151 12/03/2020 174 HDL Cholesterol (mg/dL) Date Value 06/04/2022 46 12/03/2020 50 LDL Cholesterol (mg/dL) Date Value 06/04/2022 89 12/03/2020 108 Triglyceride (mg/dL) Date Value 06/04/2022 82 12/03/2020 80 Ms. Jimenez indicates a history of hypertension and states that she is feeling well and denies any symptoms referable to elevated blood pressure. Specifically denies headache, chest pain, palpitations, dyspnea, and peripheral edema. Patient denies any side effects of her medication(s) and is compliant with their regimen. Last 3 Encounter BP Readings: Date: BP: 06/09/2023 130/80 12/08/2022 130/80 06/06/2022 158/80 She watches her diet for sodium, low fat and low cholesterol some of the time. She does not check BP's generally. Magui gets minimal exercise. PAST MEDICAL HISTORY Diagnosis Date Anemia, unspecified 02/17/2004 normocytic; iron, B12, folate, thyroid, hgb electrophereesis all WNL 02/20. Anemia did improve on supplemental iron. Degeneration of lumbar or lumbosacral intervertebral disc 02/16/2006 per xray Dermatophytosis of nail 06/16/[address] Stuart Diabetic peripheral neuropathy (HCC) Elevated sedimentation rate Essential hypertension, benign Macular degeneration (senile) of retina, unspecified 03/19/2004 macular edema from diabetic retinopathy with best corrected vision 20/50. Sees retinal specialist Dr. Haroon Claros Malignant neoplasm of overlapping sites of right female breast (HCC) 02/2020 Nonspecific (abnormal) findings on radiological and other examination of skull and head 11/16/2005 MRI brain: left pituitary enlargement needing further evaluation Other chest pain 12/18/2003 UT ruled out. Adenosine stress test WNL; 2d echo [id number]% Psoriasis Pure hypercholesterolemia Type II or unspecified type diabetes mellitus with ophthalmic manifestations, not stated as uncontrolled(250.50) 02/16/1985 PAST SURGICAL HISTORY Procedure Laterality Date BREAST BIOPSY HX Right 01/26/2020 CHOLECYSTECTOMY OVARIAN CYSTECTOMY approx. 1989 RPR RETINAL DTCHMNT DRG SUBRETINAL FLUID PC Laser repair retinal detach So (more content not included)... Normal [facility] Cobalamin (Vitamin B12) [Mas s/Vol]on 06-09-2023 Interpretation and review of laboratory results Abnormal [facility] Comprehensive metabolic 2000 panelon 06-09-2023 Albumin [Mass/Vol] 4.5 g/dL 3.9 - 4.9 g/dL [facility] ALP [Catalytic activity/Vol] 78 U/L 34 - 123 U/L [facility] ALT [Catalytic activity/Vol] 12 U/L 7 - 38 U/L [facility] Anion gap [Moles/Vol] 11 mmol/L 9 - 18 mmol/L [facility] AST [Catalytic activity/Vol] 17 U/L 13 - 35 U/L [facility] Bilirubin [Mass/Vol] 0.2 mg/dL 0.2 - 1.3 mg/dL [facility] Calcium [Mass/Vol] 10.1 mg/dL 8.5 - 10. 2 mg/dL [facility] Chloride [Moles/Vol] 105 mmol/L 97 - 105 mmol/L [facility] CO2 [Moles/Vol] 27 mmol/L 22 - 30 mmol/L [facility] Creatinine [Mass/Vol] 0.76 mg/dL 0.58 - 0.96 mg/dL [facility] GFR/1.73 sq M.predicted among non-blacks MDRD (S/P/Bld) [Vol rate/Area] 81 mL/min/{1.73_m2} - PINF [facility] Comment on above: Estimated Glomerular Filtration Rate (eGFR) is calculated using the 2020 CKD-EPI creatinine equation. This equation utilizes serum creatinine, sex, and age as parameters. The creatinine assay has traceable calibration to isotope dilution-mass spectrometry. Refer to KDIGO guidelines for clinical interpretation. In patients with unstable renal function, e.g. those with acute kidney injury, the eGFR may not accurately reflect actual GFR. Glucose [Mass/Vol] 137 mg/dL High 74 - 99 mg/dL [facility] Comment on above: The [place] Diabete s Association (ADA) provides guidance for cutoff values for fasting glucose and random glucose. The ADA defines fasting as no caloric intake for at least 8 hours. Fasting plasma glucose results between 100 to 125 mg/dL indicate increased risk for diabetes (prediabetes). Fasting plasma glucose results greater than or equal to 126 mg/dL meet the criteria for diagnosis of diabetes. In the absence of unequivocal hyperglycemia, results should be confirmed by repeat testing. In a patient with classic symptoms of hyperglycemia or hyperglycemic crisis, random plasma glucose results greater than or equal to 200 mg/dL meet the criteria for diagnosis of diabetes. Reference: Standards of Medical Care in Diabetes 2016, [place] Diabetes Association. Diabetes Care. 2016.39(Suppl 1). Interpretation and review of laboratory results Abnormal [facility] Potassium [Moles/Vol] 4.2 mmol/L 3.7 - 5.1 mmol/L [facility] Protein [Mass/Vol] 7.6 g/dL 6.3 - 8.0 g/dL [facility] Sodium [Moles/Vol] 143 mmol/L 136 - 144 mmol/L [facility] Urea nitrogen [Mass/Vol] 10 mg/dL 7 - 21 mg/dL [facility] Albumin [Mass/Vol] 4.5 g/dL Normal 3.9-4.9 [facility] Comment on above: Order Comment: Letyi pepito Type: BLOOD SPECIMENOrdering Facility: [facility] Address: [address] [place] [address] Performed By: #### 2 885-2, , 2131-10 ####[facility] LABCLIA [id number] [place] [address] [place] ALP [Catalytic activity/Vol] 78 U/L Normal 34-123 [facility] Comment on above: Order Comment: Sheeba beyer Type: BLOOD SPECIMENOrdering Facility: [facility] Address: [address] [place] [address] Performed By: #### 2 885-2, , 2131-10 ####[facility] LABCLIA [id number] [place] [address] [place] ALT [Catalytic activity/Vol] 12 U/L Normal 7-38 [facility] Comment on above: Order Comment: Letyi men Type: BLOOD SPECIMENOrdering Facility: [facility] Address: [address] [place] [address] Performed By: #### 2 885-2, 48914-2, 2131-10 ####[facility] LABCLIA [id number] [address] [id number] [address] [place] Anion gap [Moles/Vol] 11 mmol/L Normal 9-18 [facility] Comment on above: Order Comment: Speci men Type: BLOOD SPECIMENOrdering Facility: [facility] Address: [address] [place] [address] Performed By: #### 2 885-2, , 2131-10 ####[facility] LABCLIA [id number] [place] [address] [place] AST [Catalytic activity/Vol] 17 U/L Normal 13-35 [facility] Comment on above: Order Comment: Speci men Type: BLOOD SPECIMENOrdering Facility: [facility] Address: [address] [place] [address] Performed By: #### 2 885-2, , 2131-10 ####[facility] LABCLIA [id number] [place] [address] [place] Bilirubin [Mass/Vol] 0.2 mg/dL Normal 0.2-1.3 [facility] Comment on above: Order Comment: Speci men Type: BLOOD SPECIMENOrdering Facility: [facility] Address: [address] [place] [address] Performed By: #### 2 885-2, , 2131-10 ####[facility] LABCLIA [id number] [place] [address] [place] Calcium [Mass/Vol] 10.1 mg/dL Normal 8.5-10.2 [facility] Comment on above: Order Comment: Speci men Type: BLOOD SPECIMENOrdering Facility: [facility] Address: [address] [place] [address] Performed By: #### 2 885-2, , 2131-10 ####[facility] LABCLIA [id number] [address] [address] [place] Chloride [Moles/Vol] 105 mmol/L Normal 97-105 [facility] Comment on above: Order Comment: Speci men Type: BLOOD SPECIMENOrdering Facility: [facility] Address: [address] [place] [address] Performed By: #### 2 885-2, , 2131-10 ####[facility] LABCLIA [id number] [address] [address] [place] CO2 [Moles/Vol] 27 mmol/L Normal 22-30 [facility] Comment on above: Order Comment: Speci men Type: BLOOD SPECIMENOrdering Facility: [facility] Address: [address] [place] [address] Performed By: #### 2 885-2, , 2131-10 ####[facility] LABCLIA [id number] [address] [address] [place] Creatinine [Mass/Vol] 0.76 mg/dL Normal 0.58-0.96 [facility] Comment on above: Order Comment: Speci men Type: BLOOD SPECIMENOrdering Facility: [facility] Address: [address] [place] [address] Performed By: #### 2 885-2, , 2131-10 ####[facility] LABCLIA [id number] [address] [address] [place] Creatinine and Glomerular filtration rate.predicted panel (S/P/Bld) 81 mL/min/1.73m??? Normal >=60 [facility] Comment on above: Order Comment: Speci men Type: BLOOD SPECIMENOrdering Facility: [facility] Address: [address] [place] [address] Result Comment: Ashly mated Glomerular Filtration Rate (eGFR) is calculated using the 2020 CKD-EPI creatinine equation. This equation utilizes serum creatinine, sex, and age as parameters. The creatinine assay has traceable calibration to isotope dilution-mass spectrometry. Refer to KDIGO guidelines for clinical interpretation. In patients with unstable renal function, e.g. those with acute kidney injury, the eGFR may not accurately reflect actual GFR. Performed By: #### 2 885-2, , 2131-10 ####[facility] LABCLIA [id number] [address] [address] [place] Glucose [Mass/Vol] 137 mg/dL High 74-99 [facility] Comment on above: Order Comment: Speci men Type: BLOOD SPECIMENOrdering Facility: [facility] Address: [address] [place] [address] Result Comment: The [place] Diabetes Association (ADA) provides guidance for cutoff values for fasting glucose and random glucose. The ADA defines fasting as no caloric intake for at least 8 hours. Fasting plasma glucose results between 100 to 125 mg/dL indicate increased risk for diabetes (prediabetes). Fasting plasma glucose results greater than or equal to 126 mg/dL meet the criteria for diagnosis of diabetes. In the absence of unequivocal hyperglycemia, results should be confirmed by repeat testing. In a patient with classic symptoms of hyperglycemia or hyperglycemic crisis, random plasma glucose results greater than or equal to 200 mg/dL meet the criteria for diagnosis of diabetes. Reference: Standards of Medical Care in Diabetes 2016, [place] Diabetes Association. Diabetes Care. 2016.39(Suppl 1). Performed By: #### 2 885-2, , 2131-10 ####[facility] LABCLIA [id number] [place] [address] [place] Potassium [Moles/Vol] 4.2 mmol/L Normal 3.7-5.1 [facility] Comment on above: Order Comment: Speci men Type: BLOOD SPECIMENOrdering Facility: [facility] Address: [address] [place] [address] Performed By: #### 2 885-2, 01421-5, 2131-10 ####[facility] LABCLIA [id number] [place] [address] [place] Sodium [Moles/Vol] 143 mmol/L Normal 136-144 [facility] Comment on above: Order Comment: Speci men Type: BLOOD SPECIMENOrdering Facility: [facility] Address: [address] [place] [address] Performed By: #### 2 885-2, 22162-1, 2131-10 ####[facility] LABCLIA [id number] [place] [address] [place] Urea nitrogen [Mass/Vol] 10 mg/dL Normal 7-21 [facility] Comment on above: Order Comment: Sheeba men Type: BLOOD SPECIMENOrdering Facility: [facility] Address: [address] [place] [address] Performed By: #### 2 885-2, 90199-5, 2131-10 ####[facility] LABCLIA [id number] [place] [address] [place] HbA1c (Bld)on 06-09-2023 Average glucose Estimated from glycated hemoglobin (Bld) [Mass/Vol] 151 mg/dL [facility] Comment on above: eAG: (Estimated aver age glucose) is a calculated value from HgbA1c and is sales representative canvas products of the average blood glucose level in the last 2-3 month period. HbA1c (Bld) [Mass fraction] 6.9 % High 4.3 - 5.6 % [facility] Comment on above: [place] Diabetes As sociation guidelines indicate that patients with HgbA1c in the range 5.7-6.4% are at increased risk for development of diabetes, and intervention by lifestyle modification may be beneficial. HgbA1c greater or equal to 6.5% is considered diagnostic of diabetes. Interpretation and review of laboratory results Abnormal [facility] Average glucose Estimated from glycated hemoglobin (Bld) [Mass/Vol] 151 mg/dL Normal [facility] Comment on above: Order Comment: Sheeba beyer Type: BLOOD SPECIMENOrdering Facility: [facility] Address: [address] [place] [address] Result Comment: eAG: (Estimated average glucose) is a calculated value from HgbA1c and is sales representative canvas products of the average blood glucose level in the last 2-3 month period. Performed By: #### 5 5454-3 ####[facility] LABCLIA [id number] [place] [address] [place] HbA1c (Bld) [Mass fraction] 6.9 % High 4.3-5.6 [facility] Comment on above: Order Comment: Sheeba beyer Type: BLOOD SPECIMENOrdering Facility: [facility] Address: [address] [place] [address] Result Comment: [place] Diabetes Association guidelines indicate that patients with HgbA1c in the range 5.7-6.4% are at increased risk for development of diabetes, and intervention by lifestyle modification may be beneficial. HgbA1c greater or equal to 6.5% is considered diagnostic of diabetes. Performed By: #### 5 5454-3 ####[facility] LABCLIA [id number] [address] [place] Iron and Iron binding capaci ty panelon 06-09-2023 Interpretation and review of laboratory results Abnormal [facility] Iron [Mass/Vol] 46 ug/dL 41 - 186 ug/dL [facility] Iron binding capacity [Mass/Vol] 311 ug/dL 232 - 386 ug/dL [facility] Iron/TIBC [Molar ratio] 14.8 % Low 15.0 - 57.0 % [facility] Iron [Mass/Vol] 46 ug/dL Normal 41-186 [facility] Comment on above: Order Comment: Sheeba beyer Type: BLOOD SPECIMENOrdering Facility: [facility] Address: [address] [place] [address] Performed By: #### 3 024-7, 3016-3, 51197-9, 84932-4 ####[facility] LABCLIA [id number] [address] [place] Iron binding capacity [Mass/Vol] 311 ug/dL Normal 232-386 [facility] Comment on above: Order Comment: Sheeba beyer Type: BLOOD SPECIMENOrdering Facility: [facility] Address: [address] [place] [address] Performed By: #### 3 024-7, 3016-3, 02131-3, 67218-8 ####[facility] LABCLIA [id number] [place] [address] [address] [place] Iron/TIBC [Molar ratio] 14.8 % Low 15.0-57.0 [facility] Comment on above: Order Comment: Speci men Type: BLOOD SPECIMENOrdering Facility: [facility] Address: [address] [place] [address] Performed By: #### 3 024-7, 3016-3, 97828-5, 47911-9 ####[facility] LABCLIA [id number] [facility] [id number] [place] [address] [place] Lipid 1996 panelon 4 Cholesterol [Mass/Vol] 163 mg/dL NINF - 200 mg/dL [facility] Comment on above: <200 mg/dL, Desirabl e 200-239 mg/dL, Borderline high >239 mg/dL, High Cholesterol in HDL [Mass/Vol] 62 mg/dL 39 - PINF mg/dL [facility] Comment on above: 40-59 mg/dL, Accepta ble >59 mg/dL, High: Negative risk factor for coronary heart disease <40 mg/dL, Low: Positive risk factor for coronary heart disease Cholesterol in LDL [Mass/Vol] 90 mg/dL NINF - 100 mg/dL [facility] Comment on above: <100 mg/dL, Optimal 100-129 mg/dL, Near optimal/above optimal 130-159 mg/dL, Borderline high 160-189 mg/dL, High >189 mg/dL, Very high Secondary prevention optimal LDL Cholesterol levels are recommended to be < 70 mg/dL Cholesterol in LDL/Cholesterol in HDL [Mass ratio] 1.45 {ratio} NINF - 2.54 [facility] Comment on above: Reference: 1. National Cholesterol Education Program ATP III Guideline At-A-Glance Quick Desk Reference: National Heart, Lung, and Blood Edwards. National Institutes of Health. 2001: NIH Publication No. 01-3305. 2. An International Atherosclerosis Society position paper: global recommendations for the management of dyslipidemia: executive summary, Atherosclerosis. 2014: 232(2):410-413. Cholesterol in VLDL [Mass/Vol] 11 mg/dL NINF - 30 mg/dL [facility] Cholesterol non HDL [Mass/Vol] 101 mg/dL NINF - 130 mg/dL [facility] Comment on above: <130 mg/dL, Optimal 130-159 mg/dL, Near optimal/above optimal 160-189 mg/dL, Borderline high 190-219 mg/dL, High >219 mg/dL, Very high Secondary prevention optimal non HDL Cholesterol levels are recommended to be <100 mg/dL Cholesterol.total/C holesterol in HDL [Mass ratio] 2.63 {ratio} NINF - 5.10 [facility] Fasting Time 12 hrs [facility] Triglyceride [Mass/Vol] 54 mg/dL NINF - 150 mg/dL [facility] Comment on above: <150 mg/dL, Normal 150-199 mg/dL, Borderline high 200-499 mg/dL, High >499 mg/dL, Very high Cholesterol [Mass/Vol] 163 mg/dL Normal <200 [facility] Comment on above: Order Comment: Speci men Type: BLOOD SPECIMENOrdering Facility: [facility] Address: [address] [place] [address] Result Comment: <200 mg/dL, Desirable 200-239 mg/dL, Borderline high >239 mg/dL, High Performed By: #### 3 024-7, 3016-3, 59210-5, 62032-0 ####[facility] LABCLIA [id number] [address] [place] Cholesterol in HDL [Mass/Vol] 62 mg/dL Normal >39 [facility] Comment on above: Order Comment: Letyi men Type: BLOOD SPECIMENOrdering Facility: [facility] Address: [address] [place] [address] Result Comment: 40-5 9 mg/dL, Acceptable >59 mg/dL, High: Negative risk factor for coronary heart disease <40 mg/dL, Low: Positive risk factor for coronary heart disease Performed By: #### 3 024-7, 3016-3, 17934-9, 22498-2 ####[facility] LABCLIA [id number] [address] [place] Cholesterol in LDL [Mass/Vol] 90 mg/dL Normal <100 [facility] Comment on above: Order Comment: Speci men Type: BLOOD SPECIMENOrdering Facility: [facility] Address: [address] [place] [address] Result Comment: <100 mg/dL, Optimal 100-129 mg/dL, Near optimal/above optimal 130-159 mg/dL, Borderline high 160-189 mg/dL, High >189 mg/dL, Very high Secondary prevention optimal LDL Cholesterol levels are recommended to be < 70 mg/dL Performed By: #### 3 024-7, 3016-3, 90822-1, 72905-8 ####[facility] LABCLIA [id number] [place] [address] [place] Cholesterol in LDL/Cholesterol in HDL [Mass ratio] 1.45 {ratio} Normal <2.54 [facility] Comment on above: Order Comment: Sheeba beyer Type: BLOOD SPECIMENOrdering Facility: [facility] Address: [address] [place] [address] Result Comment: Lobo galo: 1. National Cholesterol Education Program ATP III Guideline At-A-Glance Quick Desk Reference: National Heart, Lung, and Blood Edwards. National Institutes of Health. 2001: NIH Publication No. 01-3305. 2. An International Atherosclerosis Society position paper: global recommendations for the management of dyslipidemia: executive summary, Atherosclerosis. 2014: 232(2):410-413. Performed By: #### 3 024-7, 6-3, 52615-4, 02766-3 ####[facility] LABCLIA [id number] [place] [address] [place] Cholesterol in VLDL [Mass/Vol] 11 mg/dL Normal <30 [facility] Comment on above: Order Comment: Letyumm beyer Type: BLOOD SPECIMENOrdering Facility: [facility] Address: [address] [place] [address] Performed By: #### 3 024-7, 3016-3, 28367-9, 29353-0 ####[facility] LABCLIA [id number] [facility] [address] [address] [place] Cholesterol non HDL [Mass/Vol] 101 mg/dL Normal <130 [facility] Comment on above: Order Comment: Speci men Type: BLOOD SPECIMENOrdering Facility: [facility] Address: [address] [place] [address] Result Comment: <130 mg/dL, Optimal 130-159 mg/dL, Near optimal/above optimal 160-189 mg/dL, Borderline high 190-219 mg/dL, High >219 mg/dL, Very high Secondary prevention optimal non HDL Cholesterol levels are recommended to be <100 mg/dL Performed By: #### 3 024-7, 3016-3, 83273-0, 79545-4 ####[facility] LABCLIA [id number] [place] [address] [place] Cholesterol.total/C holesterol in HDL [Mass ratio] 2.63 {ratio} Normal <5.10 [facility] Comment on above: Order Comment: Speci men Type: BLOOD SPECIMENOrdering Facility: [facility] Address: [address] [place] [address] Performed By: #### 3 024-7, 3016-3, 04490-1, 99497-3 ####[facility] LABCLIA [id number] [place] [id number] [place] FASTING TIME 12 hrs Normal [facility] Comment on above: Order Comment: Speci men Type: BLOOD SPECIMENOrdering Facility: [facility] Address: [address] [place] [address] Performed By: #### 3 024-7, 3016-3, 48520-3, 62974-3 ####[facility] LABCLIA [id number] [place] [id number] [place] Triglyceride [Mass/Vol] 54 mg/dL Normal <150 [facility] Comment on above: Order Comment: Speci men Type: BLOOD SPECIMENOrdering Facility: [facility] Address: [address] [place] [address] Result Comment: <150 mg/dL, Normal 150-199 mg/dL, Borderline high 200-499 mg/dL, High >499 mg/dL, Very high Performed By: #### 3 024-7, 3016-3, 53699-1, 06158-2 ####[facility] LABIA [id number] [place] [address] [place] No Panel Informationon 06-08 [facility] Interpretation and review of laboratory results Normal [facility] PROTEIN ELECTROPHORESIS SERU M (P)on 06-09-2023 Albumin [Mass/Vol] 4.32 g/dL Normal 3.43-5.41 [facility] Comment on above: Order Comment: Speci men Type: BLOOD SPECIMENOrdering Facility: [facility] Address: [address] [place] [address] Performed By: #### L [id number] ####[facility] LABIA [id number] [place] [address] [place] Alpha 1 globulin Elph [Mass/Vol] 0.36 g/dL Normal 0.18-0.43 [facility] Comment on above: Order Comment: Speci men Type: BLOOD SPECIMENOrdering Facility: [facility] Address: [address] [place] [address] Performed By: #### L [id number] ####[facility] LABIA [id number] [place] [address] [place] Alpha 2 globulin Elph [Mass/Vol] 0.83 g/dL Normal 0.42-0.98 [facility] Comment on above: Order Comment: Speci men Type: BLOOD SPECIMENOrdering Facility: [facility] Address: [address] [place] [address] Performed By: #### L [id number] ####[facility] LABIA [id number] [place] [address] [place] Beta globulin Elph [Mass/Vol] 0.90 g/dL Normal 0.61-1.17 [facility] Comment on above: Order Comment: Speci men Type: BLOOD SPECIMENOrdering Facility: [facility] Address: [address] [place] [address] Performed By: #### L [id number] ####[facility] LABCLIA [id number] [place] [address] [place] Gamma globulin Elph [Mass/Vol] 1.19 g/dL Normal 0.53-1.51 [facility] Comment on above: Order Comment: Speci men Type: BLOOD SPECIMENOrdering Facility: [facility] Address: [address] [place] [address] Performed By: #### L [id number] ####[facility] LABIA [id number] [place] [address] [place] M-PROTEIN LOCATION Normal [facility] Comment on above: Order Comment: Speci men Type: BLOOD SPECIMENOrdering Facility: [facility] Address: [address] [place] [address] Result Comment: Not Applicable. Performed By: #### L [id number] ####[facility] LABCLIA [id number] [place] [address] [place] Protein Fractions [Interp] No definitive M protein is identified on protein electrophoresis. Normal No definitive M protein is identified on protein electrophoresi s. [facility] Comment on above: Order Comment: Speci men Type: BLOOD SPECIMENOrdering Facility: [facility] Address: [address] [place] [address] Performed By: #### L [id number] ####[facility] LABCLIA [id number] [place] [address] [place] Protein.monoclonal Elph [Mass/Vol] 0.00 g/dL Normal <=0.00 [facility] Comment on above: Order Comment: Speci men Type: BLOOD SPECIMENOrdering Facility: [facility] Address: [address] [place] [address] Performed By: #### L [id number] ####[facility] LABCLIA [id number] [place] [address] [place] SPE STAFF REVIEW Reviewed by Brett Uriostegui MD, Ph.D ([id number]) Normal [facility] Comment on above: Order Comment: Speci men Type: BLOOD SPECIMENOrdering Facility: [facility] Address: [address] [place] [address] Performed By: #### L [id number] ####[facility] LABCLIA [id number] [place] [address] [place] Prot SerPl-mCncon 06-09-2023 Protein [Mass/Vol] 7.6 g/dL Normal 6.3-8.0 [facility] Comment on above: Order Comment: Speci men Type: BLOOD SPECIMENOrdering Facility: [facility] Address: [address] [place] [address] Performed By: #### 2 885-2, 19835-6, 2132-9 ####[facility] LABCLIA [id number] [place] [address] [place] T4 FREE/FREE THYROXINEon Free T4 [Mass/Vol] 1.3 ng/dL 0.9 - 1.7 ng/dL [facility] T4 Free SerPl-mCncon 024 Free T4 [Mass/Vol] 1.3 ng/dL Normal 0.9-1.7 [facility] Comment on above: Order Comment: Speci men Type: BLOOD SPECIMENOrdering Facility: [facility] Address: [address] [place] [address] Performed By: #### 3 024-7, 3016-3, 96780-2, 77371-5 ####[facility] LABCLIA [id number] [place] [address] [place] THYROID STIMULATING HORMONEo n 06-09-2023 TSH Qn 2.520 m[IU]/L [facility] TSH SerPl-aCncon 06-09-2023 TSH Qn 2.520 m[IU]/L Normal 0.270-4.200 [facility] Comment on above: Order Comment: Speci men Type: BLOOD SPECIMENOrdering Facility: [facility] Address: [address] [place] [address] Performed By: #### 3 024-7, 3016-3, 23693-5, 30101-0 ####[facility] LABCLIA [id number] [place] [address] [place] VITAMIN B12on 06-09-2023 Cobalamin (Vitamin B12) [Mass/Vol] pg/mL High 232 - 1245 pg/mL [facility] VITAMIN D 25 HYDROXYon 06-08 25-hydroxyvitamin D3 [Mass/Vol] 57.4 ng/mL 31.0 - 80.0 ng/mL [facility] Comment on above: Classification of 25 [place] Vitamin D status: Deficiency/Insufficiency: < or = 30 ng/ml. Sufficiency/Optimal Levels: 31-80 ng/mL Toxicity: > 100 ng/mL. Test performed by chemiluminescent immunoassay. Vit B12 SerPl-mCncon 024 Cobalamin (Vitamin B12) [Mass/Vol] pg/mL High 232-1245 [facility] Comment on above: Order Comment: Speci men Type: BLOOD SPECIMENOrdering Facility: [facility] Address: [facility] [place] [address] Performed By: #### 2 885-2, 56002-5, 2132-9 ####[facility] LABIA [id number] [place] [address] [place] HEMOGLOBIN A1C (POC)on 06-06 HbA1c (Bld) [Mass fraction] 6.3 % 4.2 - 5.6 % [facility] Vital Signs Date Time Vital Sign Value Performing Clinician Zack graham 12-09-2023 09:58-0400 Diastolic blood pressure 80 mm[Hg] Emiliano Pelletier DO Work Phone: [facility] 12-09-2023 09:58-0400 Systolic blood pressure 156 mm[Hg] Emiliano Pelletier DO Work Phone: [facility] 12-09-2023 08:51-0400 Body mass index (BMI) [Ratio] 21.24 kg/m2 Emiliano Pelletier DO Work Phone: [facility] 12-09-2023 08:51-0400 Body temperature 97.81 [degF] Emiliano Pelletier DO Work Phone: [facility] 12-09-2023 08:51-0400 Body weight 57 kg Emiliano Pelletier DO Work Phone: [facility] 12-09-2023 08:51-0400 Heart rate 80 /min Emiliano Pelletier DO Work Phone: [facility] 12-09-2023 08:51-0400 Respiratory rate 20 /min Emiliano Pelletier DO Work Phone: [facility] 10-13-2023 09:23-0400 Body height 163.8 cm Tiana Griffin MD Work Phone: [facility] 10-13-2023 09:23-0400 Body mass index (BMI) [Ratio] 21.97 kg/m2 Tiana Griffin MD Work Phone: [facility] 10-13-2023 09:23-0400 Body temperature 99 [degF] Tiana Griffin MD Work Phone: [facility] 10-13-2023 09:23-0400 Body weight 58.97 kg Tiana Griffin MD Work Phone: [facility] 10-13-2023 09:23-0400 Diastolic blood pressure 84 mm[Hg] Tiana Griffin MD Work Phone: [facility] 10-13-2023 09:23-0400 Heart rate 110 /min Tiana Griffin MD Work Phone: [facility] 10-13-2023 09:23-0400 SaO2% (BldA) [Mass fraction] 93 % Tiana Griffin MD Work Phone: [facility] 10-13-2023 09:23-0400 Systolic blood pressure 140 mm[Hg] Tiana Griffin MD Work Phone: [facility] 10-05-2023 09:33-0400 Body height 164 cm Emiliano Pelletier DO Work Phone: [facility] 10-05-2023 09:33-0400 Body mass index (BMI) [Ratio] 22.43 kg/m2 Emiliano Pelletier DO Work Phone: [facility] 10-05-2023 09:33-0400 Body temperature 97 [degF] Emiliano Pelletier DO Work Phone: [facility] 10-05-2023 09:33-0400 Body weight 60.33 kg Emiliano Pelletier DO Work Phone: [facility] 10-05-2023 09:33-0400 Diastolic blood pressure 84 mm[Hg] Emiliano Pelletier DO Work Phone: [facility] 10-05-2023 09:33-0400 Heart rate 80 /min Emiliano Pelletier DO Work Phone: [facility] 10-05-2023 09:33-0400 Respiratory rate 16 /min Emiliano Pelletier DO Work Phone: [facility] 10-05-2023 09:33-0400 Systolic blood pressure 146 mm[Hg] Emiliano Pelletier DO Work Phone: [facility] 06-09-2023 08:40-0400 Body mass index (BMI) [Ratio] 22.49 kg/m2 Emiliano Pelletier DO Work Phone: [facility] 06-09-2023 08:40-0400 Body temperature 97.2 [degF] Emiliano Pelletier DO Work Phone: [facility] 06-09-2023 08:40-0400 Body weight 59.42 kg Emiliano Pelletier DO Work Phone: [facility] 06-09-2023 08:40-0400 Diastolic blood pressure 80 mm[Hg] Emiliano Pelletier DO Work Phone: [facility] 06-09-2023 08:40-0400 Heart rate 80 /min Emiliano Pelletier DO Work Phone: [facility] 06-09-2023 08:40-0400 Respiratory rate 20 /min Emiliano Pelletier DO Work Phone: [facility] 06-09-2023 08:40-0400 Systolic blood pressure 130 mm[Hg] Emiliano Pelletier DO Work Phone: [facility] 06-06-2022 09:44-0400 Body temperature 97 [degF] Emiliano Pelletier DO Work Phone: [facility] 06-06-2022 09:44-0400 Body weight 63.5 kg Emiliano Pelletier DO Work Phone: [facility] 06-06-2022 09:44-0400 Diastolic blood pressure 80 mm[Hg] Emiliano Pelletier DO Work Phone: [facility] 06-06-2022 09:44-0400 Heart rate 76 /min Emiliano Pelletier DO Work Phone: [facility] 06-06-2022 09:44-0400 Respiratory rate 16 /min Emiliano Pelletier DO Work Phone: [facility] 06-06-2022 09:44-0400 Systolic blood pressure 158 mm[Hg] Emiliano Pelletier DO Work Phone: [facility] 12-06-2021 09:31-0400 Body temperature 97 [degF] Emiliano Pelletier DO Work Phone: [facility] 12-06-2021 09:31-0400 Body weight 63.5 kg Emiliano Pelletier DO Work Phone: [facility] 12-06-2021 09:31-0400 Diastolic blood pressure 80 mm[Hg] Emiliano Pelletier DO Work Phone: [facility] 12-06-2021 09:31-0400 Heart rate 80 /min Emiliano Pelletier DO Work Phone: [facility] 12-06-2021 09:31-0400 Respiratory rate 16 /min Emiliano Pelletier DO Work Phone: [facility] 12-06-2021 09:31-0400 Systolic blood pressure 120 mm[Hg] Emiliano Pelletier DO Work Phone: [facility] 06-06-2021 08:46-0400 Body weight 64.68 kg Kirsten Zurawick FARM TRUCK DRIVER.COM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 Work Phone: [facility] 06-06-2021 08:46-0400 Diastolic blood pressure 82 mm[Hg] Kirsten Zurawick FARM TRUCK DRIVER.COM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 Work Phone: [facility] 06-06-2021 08:46-0400 Heart rate 68 /min Kirsten Zurawick FARM TRUCK DRIVER.COM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 Work Phone: [facility] 06-06-2021 08:46-0400 Respiratory rate 16 /min Kirsten Zurawick FARM TRUCK DRIVER.COM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 Work Phone: [facility] 06-06-2021 08:46-0400 Systolic blood pressure 142 mm[Hg] Kirsten Zurawick FARM TRUCK DRIVER.COM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 Work Phone: [facility] Encounters Encounter Date Encounter Type Care Provider Facility Start: 12-10-2023 End: 12-10-2023 Telephone encounter Maryanne ELIZALDE Navigation Start: 12-09-2023 End: 12-09-2023 ambulatory EMILIANO PELLETIER Facility:[facility] Start: 12-09-2023 End: 12-09-2023 Patient encounter procedure Emiliano Henna SnellPelletier DO Work Phone: [facility] [place] Comment on above: Mass of right breast , unspecified quadrant (Primary Dx); Malignant neoplasm of upper-outer quadrant of right breast in female, estrogen receptor negative (HCC); Chest wall pain; Controlled type 2 diabetes mellitus with complication, without long-term current use of insulin (HCC); Vitamin B12 deficiency; Essential hypertension, benign; Pure hypercholesterolemia; Vitamin D deficiency Start: 11-05-2023 End: 11-05-2023 Telephone encounter [facility] Provider [facility] Comment on above: Future Appointment ( Left Voice Mail) Start: 10-15-2023 End: 10-22-2023 Telephone encounter Jared Chen APRN.COM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 Work Phone: [facility] [place] Comment on above: Results Start: 10-13-2023 End: 10-13-2023 Telephone encounter Marcus Brown Tatum DO Work Phone: Hematology/Oncology Comment on above: New Patient Start: 10-13-2023 End: 10-13-2023 Subsequent hospital visit by physician Kris [facility] [place] Work Phone: Radiology Comment on above: Acute bilateral thor acic back pain [M54.6] Start: 10-13-2023 End: 10-13-2023 ambulatory EMILIANO PELLETIER Facility:[facility] Start: 10-13-2023 End: 10-13-2023 Patient encounter procedure Tiana Griffin MD Work Phone: General Surgery Comment on above: Mass of right breast , unspecified quadrant; Breast cancer 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, right (HCC) Start: 10-08-2023 End: 10-16-2023 Telephone encounter Emiliano Pelletier DO Work Phone: [facility] [place] Comment on above: Patient Update Start: 10-05-2023 End: 10-05-2023 ambulatory EMILIANO PELLETIER Facility:[facility] Start: 10-05-2023 End: 10-05-2023 Patient encounter procedure Emiliano Pelletier DO Work Phone: [facility] [place] Comment on above: Medicare annual well [facility] visit, subsequent (Primary Dx); Acute bilateral thoracic back pain; Rib pain; Controlled type 2 diabetes mellitus with complication, without long-term current use of insulin (HCC); Flank pain; Mass of right breast, unspecified quadrant; Malignant neoplasm of upper-outer quadrant of right breast in female, estrogen receptor negative (HCC); Vitamin D deficiency; Vitamin B12 deficiency; Essential hypertension, benign; Pure hypercholesterolemia Start: 06-26-2023 Telephone encounter Emiliano freeman DO Work Phone: [facility] [place] Comment on above: Medication Problem Start: 06-25-2023 Telephone encounter Emiliano freeman DO Work Phone: [facility] [place] Start: 06-09-2023 End: 06-09-2023 ambulatory EMILIANO PELLETIER Facility:[facility] Start: 06-09-2023 End: 06-09-2023 Patient encounter procedure Emiliano Pelletier DO Work Phone: [facility] [place] Comment on above: Type 2 diabetes juaquin itus with diabetic neuropathy, without long-term current use of insulin (HCC) (Primary Dx); Weight loss, unintentional; Pure hypercholesterolemia; Vitamin D deficiency; Vitamin B12 deficiency; Essential hypertension, benign; Controlled type 2 diabetes mellitus with complication, without long-term current use of insulin (HCC); Anemia, unspecified type; 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, without long-term current use of insulin (HCC); Malignant neoplasm of upper-outer quadrant of right breast in female, estrogen receptor negative (HCC) Start: 05-05-2023 ambulatory Danielle Thurman [facility] Start: 05-05-2023 Patient encounter procedure Danielle Lockhart sebasti[facility] [place] Comment on above: Population Health Na vigation Outreach ([place] Annual Wellness Visit ) Start: 01-15-2023 ambulatory Debstephanie Escudero [facility] [place] Comment on above: Population Health Na vigation Outreach ([facility] [place] care gap outreach) Start: 11-26-2022 Refill Emiliano tan DO Work Phone: [facility] [place] Comment on above: Refill Request Start: 10-09-2022 ambulatory Deb Escudero MA [facility] [place] Comment on above: Population Health Na vigation Outreach ([facility] [place] care gap outreach) Start: 08-20-2022 Telephone encounter Emiliano freeman DO Work Phone: [facility] [place] Comment on above: Medication Problem Start: 08-15-2022 ambulatory Emiliano Mcdowell son DO Work Phone: [facility] [place] Comment on above: Ankle Injury Start: 08-15-2022 Telephone encounter Emiliano freeman DO Work Phone: [facility] [place] Comment on above: Medication Problem Start: 06-25-2022 ambulatory Suzanne Suarez [facility] [place] Comment on above: Population Health Na vigation Outreach ([place] Care Gaps ) Start: 06-06-2022 End: 06-06-2022 Patient encounter procedure Emiliano Pelletier DO Work Phone: [facility] [place] Comment on above: Uncontrolled type 2 diabetes mellitus with hyperglycemia (HCC) (Primary Dx); Pure hypercholesterolemia; Essential hypertension, benign; Vitamin D deficiency; Vitamin B12 deficiency; Malignant neoplasm of upper-outer quadrant of right breast in female, estrogen receptor negative (HCC) Start: 06-05-2022 Telephone encounter Kirsten tan FARM TRUCK DRIVER.COM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 Work Phone: [facility] [place] Comment on above: Results Start: 05-27-2022 Refill Emiliano tan DO Work Phone: [facility] [place] Comment on above: Refill Request Start: 12-09-2021 ambulatory Janet Suarez [facility] [place] Comment on above: Population Health Na vigation Outreach (/[place] Care Gaps) Start: 12-06-2021 End: 12-06-2021 Patient encounter procedure Emiliano Pelletier DO Work Phone: [facility] [place] Comment on above: Controlled type 2 di abetes mellitus with complication, without long-term current use of insulin (HCC) (Primary Dx); Essential hypertension, benign; Pure hypercholesterolemia; Malignant neoplasm of upper-outer quadrant of right breast in female, estrogen receptor negative (HCC); Anemia, unspecified type; Vitamin D deficiency Start: 06-07-2021 Telephone encounter Kirsten hopper FARM TRUCK DRIVER.COM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 Work Phone: [facility] [place] Comment on above: Results Start: 06-06-2021 End: 06-06-2021 Patient encounter procedure Kirsten Gavin FARM TRUCK DRIVER.COM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 Work Phone: [facility] [place] Comment on above: Controlled type 2 di abetes mellitus with complication, without long-term current use of insulin (HCC) (Primary Dx); Essential hypertension, benign; Pure hypercholesterolemia; Malignant neoplasm of upper-outer quadrant of right breast in female, estrogen receptor negative (HCC); Encounter for screening for osteoporosis Start: 01-26-2020 End: 01-26-2020 Subsequent hospital visit by physician Diagnostic Mammo [facility] Comment on above: Canceled (CC cx: Err or or Template Change) Procedures Date Procedure Procedure Detail Performing Clinician Start: 06-09-2023 Adult depression screening assessment Emiliano Pelletier DO Work Phone: Start: 06-06-2021 Hemoglobin A1c/Hemoglobin.total in Blood Kirsten Zurruchi FARM TRUCK DRIVER.COM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 Work Phone: Start: 12-03-2020 Adult depression screening assessment Kirsten Mcgovernaditi HERNANDEZN.COM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 Work Phone: Start: 05-16-2016 End: 08-24-2017 History of cholecystectomy History of cholecystectomy Emiliano Pelletier DO Work Phone: Start: 08-22-2013 Colonoscopy Kirstenanup Mcgovernaditi FARM TRUCK DRIVER.COM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 Work Phone: Plan of Treatment Date Care Activity Detail Author Start: 09-30-2032 Urine microalbumin profile DTaP,Tdap,Td Vaccine (2 - Td or Tdap) [facility] Start: 12-08-2024 Annual PCP Team Chronic Disease Visit Annual PCP Team Chronic Disease Visit [facility] Start: 12-08-2024 Covid-19 Vaccine ( season) Covid-19 Vaccine ( season) [facility] Comment on above: Postponed from 10/18/2023 (Declined at t his time) Start: 12-08-2024 Pneumococcal Vaccine: 65+ (1 of 2 - PCV) Pneumococcal Vaccine: 65+ (1 of 2 - PCV) [facility] Comment on above: Postponed from 11/04/1951 (Declined at t his time) Start: 10-04-2024 Annual PCP Team Chronic Disease Visit Annual PCP Team Chronic Disease Visit [facility] Start: 08-15-2024 Influenza vaccination Influenza Vaccine (#1) [place] [facility] Comment on above: Postponed from 10/18/2023 (Declined at t his time) Start: 06-08-2024 Annual PCP Team Chronic Disease Visit Annual PCP Team Chronic Disease Visit [facility] Start: 06-08-2024 Anxiety Screening Anxiety Screening [facility] Start: 06-08-2024 Depression Screening Depression Screening [facility] Start: 06-08-2024 Hepatitis B surface antibody level LDL Cholesterol [facility] Start: 04-06-2024 Hemoglobin A1c measurement HbA1C [facility] Start: 02-05-2024 End: 02-05-2024 Patient encounter procedure 02/05/2024 11:00 AM EST Office Visit [facility] [place] [address] [place] [address] Emiliano Pelletier DO [address] [place] [address] 2 month follow up [facility] [place] Comment on above: 2 month follow up Start: 12-15-2023 End: 12-15-2023 Patient encounter procedure 12/15/2023 11:00 AM EDT Office Visit Urology [address] [place] [address] Clifford Aaron PA-C [address] [place] [address] Microscopic hematuria Urology Comment on above: Microscopic hematuria Start: 12-14-2023 End: 12-14-2023 Patient encounter procedure 12/14/2023 11:00 AM EDT Office Visit General Surgery [address] [place] [address] Tiana Griffin MD [address] [id number] Follow up General Surgery Comment on above: Follow up Start: 12-09-2023 Annual PCP Team Chronic Disease Visit Annual PCP Team Chronic Disease Visit [facility] Start: 12-09-2023 Covid-19 Vaccine (#1) Covid-19 Vaccine (#1) [facility] Comment on above: Postponed from 05/03/1946 (Declined at t his time) Start: 12-09-2023 Covid-19 Vaccine ( season) Covid-19 Vaccine () [facility] Comment on above: Postponed from 10/17/2022 (Declined at t his time) Start: 12-09-2023 Hemoglobin A1c measurement HbA1C [facility] Start: 12-09-2023 End: 12-09-2023 Patient encounter procedure 12/09/2023 9:00 AM EDT Office Visit [facility] [place] [address] [place] [address] Emiliano Pelletier, DO [address] [place] [address] 6 month follow up [facility] [place] Comment on above: 6 month follow up Start: 10-23-2023 End: 10-23-2023 Patient encounter procedure 10/23/2023 11:30 AM EDT Office Visit Pain Management [address] [address] Marcus Strong MD [address] [facility] [place] [address] Acute bilateral thoracic back pain [M54.6]; Rib pain [R07.81]; Flank pain [R10.9] Pain Management Comment on above: Acute bilateral thoracic back pain [M54. 6]; Rib pain [R07.81]; Flank pain [R10.9] Start: 10-18-2023 Covid-19 Vaccine ( season) Covid-19 Vaccine () [facility] Start: 10-18-2023 Influenza vaccination [facility] Start: 10-13-2023 End: 01-12-2024 CBC panel - Blood by Automated count COMPLETE BLOOD COUNT Lab Routine Breast cancer 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, right (HCC) Expected: 10/13/2023, Expires: 01/12/2024 [facility] Work Phone: Comment on above: Expected: 10/13/2023, Expires: Start: 10-13-2023 End: 01-12-2024 Comprehensive metabolic 2000 panel - Serum or Plasma COMPREHENSIVE METABOLIC PANEL Lab Routine Breast cancer 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, right (HCC) Expected: 10/13/2023, Expires: 01/12/2024 [facility] Comment on above: Expected: 10/13/2023, Expires: Start: 10-13-2023 End: 10-13-2023 Patient encounter procedure 10/13/2023 9:30 AM EDT Office Visit General Surgery [address] [place], [place] [id number] Tiana Griffin MD [address] [place] [address] Mass of right breast, unspecified quadrant [N63.10] General Surgery Comment on above: Mass of right breast, unspecified quadra nt [N63.10] Start: 10-05-2023 End: 01-04-2024 Comprehensive metabolic 2000 panel - Serum or Plasma [facility] Comment on above: Expected: 10/05/2023, Expires: Start: 10-05-2023 End: 01-04-2024 Hemoglobin A1c in Blood [facility] Comment on above: Expected: 10/05/2023, Expires: Start: 10-05-2023 End: 01-04-2024 Urinalysis complete panel - Urine [facility] Comment on above: Expected: 10/05/2023, Expires: Start: 10-05-2023 End: 10-05-2023 Patient encounter procedure 10/05/2023 9:20 AM EDT Office Visit Family Medicine [place] [address] [place], [place] [id number] Emiliano Pelletier DO [address] [place] [address] Medicare Wellness [facility] Comment on above: Medicare Wellness Start: 08-16-2023 Influenza vaccination Influenza Vaccine (#1) [facility] Comment on above: Postponed from 10/17/2022 (Declined at t his time) Start: 06-09-2023 End: 09-08-2023 PROTEIN ELECTROPHORESIS SERUM W/INTERP [facility] Work Phone: Comment on above: Expected: 06/09/2023, Expires: Start: 06-07-2023 3 comp foot exam completed DIABETIC FOOT EXAM [facility] Start: 06-07-2023 ANNUAL PCP TEAM CHRONIC DISEASE VISIT ANNUAL PCP TEAM CHRONIC DISEASE VISIT [facility] Start: 06-07-2023 Diabetic foot examination Diabetic Foot Exam [facility] Start: 06-05-2023 Hepatitis B screening URINE ALBUMIN:CREATININE RATIO [facility] Start: 06-05-2023 Hepatitis B surface antibody level LDL CHOLESTEROL [facility] Start: 02-16-2023 Depression Assessment Depression Assessment [facility] Start: 12-06-2022 ANNUAL PCP TEAM CHRONIC DISEASE VISIT ANNUAL PCP TEAM CHRONIC DISEASE VISIT [facility] Start: 12-06-2022 BP CONTROLLED (<130/80) BP CONTROLLED (<130/80) [facility] Start: 12-06-2022 End: 02-05-2023 CBC panel - Blood by Automated count CBC Lab Routine Pure hypercholesterolemia Uncontrolled type 2 diabetes mellitus with hyperglycemia (HCC) Expected: 12/06/2022, Expires: 02/05/2023 [facility] Work Phone: Comment on above: Expected: 12/06/2022, Expires: 3 Start: 12-06-2022 End: 02-05-2023 Comprehensive metabolic 2000 panel - Serum or Plasma COMP METABOLIC PANEL Lab Routine Pure hypercholesterolemia Uncontrolled type 2 diabetes mellitus with hyperglycemia (HCC) Expected: 12/06/2022, Expires: 02/05/2023 [facility] Work Phone: Comment on above: Expected: 12/06/2022, Expires: 3 Start: 12-06-2022 COVID-19 VACCINE (#1) COVID-19 VACCINE (#1) [facility] Comment on above: Postponed from 05/03/1946 (Declined at t his time) Start: 12-06-2022 End: 02-05-2023 Hemoglobin A1c in Blood HGB A1C Lab Routine Uncontrolled type 2 diabetes mellitus with hyperglycemia (HCC) Expected: 12/06/2022, Expires: 02/05/2023 [facility] Work Phone: Comment on above: Expected: 12/06/2022, Expires: 3 Start: 12-04-2022 Hemoglobin A1c measurement HbA1C [facility] Start: 12-04-2022 Hemoglobin A1c/Hemoglobin.total in Blood HBA1C [facility] Start: 10-17-2022 Influenza vaccination [facility] Start: 08-15-2022 Influenza vaccination INFLUENZA (#1) [facility] Comment on above: Postponed from 10/17/2021 (Declined at t his time) Start: 06-06-2022 3 comp foot exam completed DIABETIC FOOT EXAM [facility] Start: 06-06-2022 ANNUAL PCP TEAM CHRONIC DISEASE VISIT ANNUAL PCP TEAM CHRONIC DISEASE VISIT [facility] Start: 06-06-2022 Hepatitis B surface antibody level LDL CHOLESTEROL [facility] Start: 06-06-2022 Urine microalbumin profile DTAP,TDAP,TD (1 - Tdap) [facility] Comment on above: Postponed from 1964 (Declined at t his time) Start: 02-16-2022 ADVANCE DIRECTIVE DISCUSSION ADVANCE DIRECTIVE DISCUSSION [facility] Start: 02-16-2022 DEPRESSION ASSESSMENT DEPRESSION ASSESSMENT [facility] Start: 12-09-2021 End: 02-08-2022 ALBUMIN/CREAT RATIO RND UR ALBUMIN/CREAT RATIO RND UR Lab Routine Type 2 diabetes mellitus with diabetic neuropathy, without long-term current use of insulin (HCC) Expected: 12/09/2021, Expires: 02/08/2022 [facility] Work Phone: Comment on above: Expected: 12/09/2021, Expires: 2 Start: 12-06-2021 End: 02-05-2022 25-hydroxyvitamin D3 [Mass/volume] in Serum or Plasma VITAMIN D 25 HYDROXY Lab Routine Vitamin D deficiency Expected: 12/06/2021, Expires: 02/05/2022 [facility] Work Phone: Comment on above: Expected: 12/06/2021, Expires: 2 Start: 12-06-2021 End: 02-05-2022 CBC W Auto Differential panel - Blood CBC + DIFF Lab Routine Controlled type 2 diabetes mellitus with complication, without long-term current use of insulin (HCC) Anemia, unspecified type Expected: 12/06/2021, Expires: 02/05/2022 [facility] Work Phone: Comment on above: Expected: 12/06/2021, Expires: 2 Start: 12-06-2021 End: 02-05-2022 Cobalamin (Vitamin B12) [Mass/volume] in Serum or Plasma VITAMIN B12 BLOOD Lab Routine Controlled type 2 diabetes mellitus with complication, without long-term current use of insulin (HCC) Expected: 12/06/2021, Expires: 02/05/2022 [facility] Work Phone: Comment on above: Expected: 12/06/2021, Expires: 2 Start: 12-06-2021 End: 02-05-2022 Comprehensive metabolic 2000 panel - Serum or Plasma COMP METABOLIC PANEL Lab Routine Controlled type 2 diabetes mellitus with complication, without long-term current use of insulin (HCC) Pure hypercholesterolemia Expected: 12/06/2021, Expires: 02/05/2022 [facility] Work Phone: Comment on above: Expected: 12/06/2021, Expires: 2 Start: 12-06-2021 End: 02-05-2022 Hemoglobin A1c in Blood HGB A1C Lab Routine Controlled type 2 diabetes mellitus with complication, without long-term current use of insulin (HCC) Expected: 12/06/2021 (Approximate), Expires: 02/05/2022 [facility] Work Phone: Comment on above: Expected: 12/06/2021 (Approximate), Expi res: 02/05/2022 Start: 12-06-2021 Hemoglobin A1c/Hemoglobin.total in Blood HBA1C [facility] Start: 12-06-2021 End: 02-05-2022 Iron and Iron binding capacity panel - Serum or Plasma IRON + TIBC Lab Routine Anemia, unspecified type Expected: 12/06/2021, Expires: 02/05/2022 [facility] Work Phone: Comment on above: Expected: 12/06/2021, Expires: 2 Start: 12-06-2021 End: 02-05-2022 Lipid 1996 panel - Serum or Plasma LIPID PANEL BASIC Lab Routine Pure hypercholesterolemia Expected: 12/06/2021, Expires: 02/05/2022 [facility] Work Phone: Comment on above: Expected: 12/06/2021, Expires: 2 Start: 12-03-2021 Adult depression screening assessment DEPRESSION SCREENING [facility] Start: 12-03-2021 BP CONTROLLED (<130/80) BP CONTROLLED (<130/80) [facility] Start: 12-03-2021 Hepatitis B screening URINE ALBUMIN:CREATININE RATIO [facility] Start: 12-03-2021 Hepatitis B surface antibody level LDL CHOLESTEROL [facility] Start: 10-17-2021 Influenza vaccination [facility]ZA (Season Ended[facility] Start: 06-06-2021 End: 08-06-2021 CBC panel - Blood by Automated count [facility] Work Phone: Comment on above: Expected: 06/06/2021, Expires: 2 Start: 06-06-2021 End: 08-06-2021 Comprehensive metabolic 2000 panel - Serum or Plasma [facility] Work Phone: Comment on above: Expected: 06/06/2021, Expires: 2 Start: 06-06-2021 End: 08-06-2021 LIPID PANEL BASIC [facility] Work Phone: Comment on above: Expected: 06/06/2021, Expires: 2 Start: 02-16-2021 ADVANCE DIRECTIVE DISCUSSION ADVANCE DIRECTIVE DISCUSSION [facility] Start: 2020 RSV Vaccine (1 - 1-dose 75+ series) RSV Vaccine (1 - 1-dose 75+ series) [facility] Start: 05-25-2019 Glaucoma screening Dilated Retinal Exam [facility] Start: 05-25-2019 Hepatitis C antibody, confirmatory test DILATED RETINAL EXAM [facility] Start: 08-22-2014 Colonoscopy COLONOSCOPY [facility] Start: 08-22-2014 COLORECTAL CANCER SCREENING COLORECTAL CANCER SCREENING [facility] Start: 2010 BONE DENSITY BONE DENSITY [facility] Start: 2010 Bone Density Screening Bone Density Screening [facility] Start: 2010 PNEUMOVAX AGE 65 AND OVER WITH 5YR LOOKBACK (#1) PNEUMOVAX AGE 65 AND OVER WITH 5YR LOOKBACK (#1) [facility] Start: 2010 Screening for osteoporosis Bone Density Screening [facility] Start: 2005 Hepatitis B Vaccine (1 of 3 - Risk 3-dose series) Hepatitis B Vaccine (1 of 3 - Risk 3-dose series) [facility] Start: 2005 RSV Vaccine (1 - 1-dose 60+ series) RSV Vaccine (1 - 1-dose 60+ series) [facility] Start: 11-04-1995 SHINGRIX VACCINE (1 of 2) SHINGRIX VACCINE (1 of 2) [facility] Start: 1990 COLOGUARD (FIT-DNA) COLOGUARD (FIT-DNA) [facility] Start: [address] COLONOGRAPHY [facility] Start: 1990 FECAL OCCULT BLOOD FECAL OCCULT BLOOD [facility] Start: 1990 SIGMOIDOSCOPY SIGMOIDOSCOPY [facility] Start: 1964 Urine microalbumin profile [facility] Start: 11-04-1951 Pneumococcal Vaccine: 65+ (1 - PCV) Pneumococcal Vaccine: 65+ (1 - PCV) [facility] Start: 11-04-1951 Pneumococcal Vaccine: 65+ (1 of 2 - PCV) Pneumococcal Vaccine: 65+ (1 of 2 - PCV) [facility] Start: 11-04-1951 PNEUMOCOCCAL: 65+ (1 - PCV) PNEUMOCOCCAL: 65+ (1 - PCV) [facility] Start: 1950 COVID-19 VACCINE (1) COVID-19 VACCINE (1) [facility] End: 07-06-2022 Dxa bone density study 1/> sites axial skel DXA-AXIAL SKELETON Radiology Routine Encounter for screening for osteoporosis 1 Occurrences starting 06/06/2021 until 07/06/2022 [facility] Work Phone: Comment on above: 1 Occurrences starting 06/06/2021 until 07/06/2022 Hemoglobin A1c/Hemoglobin.total in Blood HEMOGLOBIN A1C (POC) Lab Routine Controlled type 2 diabetes mellitus with complication, without long-term current use of insulin (HCC) Ordered: 06/06/2021 [facility] Work Phone: Comment on above: Ordered: 06/06/2021 End: 2024 XR Ribs - bilateral 4 Views and Chest PA XR RIBS BILATERAL/CHEST 4V Radiology Routine Rib pain 1 Occurrences starting 10/05/2023 until 2024 [facility] Comment on above: 1 Occurrences starting 10/05/2023 until 2024 XR Ribs - bilateral 4 Views and Chest PA XR RIBS BILATERAL/CHEST 4V Radiology Routine Rib pain 10/13/2023 11:03 AM EDT [facility] End: 2024 XR Thoracic spine AP and Lateral and Swimmers XR THORACIC GENERAL 3V AP/LAT/SWIMMERS Radiology Routine Acute bilateral thoracic back pain 1 Occurrences starting 10/05/2023 until 2024 [facility] Work Phone: Comment on above: 1 Occurrences starting 10/05/2023 until 2024 XR Thoracic spine AP and Lateral and Swimmers XR THORACIC GENERAL 3V AP/LAT/SWIMMERS Radiology Routine Acute bilateral thoracic back pain 10/13/2023 11:05 AM EDT [facility] Work Phone: [facility] Immunizations Immunization Date Immunization Notes Care Provider Stacey chaves 03-01-2018 influenza virus vacc ine, unspecified formulation Emiliano Pelletier DO Work Phone: [facility] Payers Date Payer Category Payer Unknown [employer] [facility] AND BLUE [facility] [employer] HMO [id number] 2019-Present [phone] [address] [place] [address] O [id number] 2019 Unknown [id number] 2019 Medicare [id number] Social History Date Type Detail Facility Start: 12-06-2021 End: 10-05-2023 Tobacco smoking status NHIS Ex-smoker [facility] Work Phone: Start: 02-16-1970 End: 02-17-1976 History of tobacco use Current smoker [facility] Work Phone: Start: 02-16-1970 End: 02-17-1976 History of tobacco use Cigarette Smoker [facility] Work Phone: Start: 06-06-2021 End: 12-09-2023 Alcohol intake Current non-drinker of alcohol (finding) [facility] Start: 1945 Sex Assigned At Not on file [facility] Start: 12-27-2019 End: 12-06-2021 Exposure to SARS-CoV-2 (event) Not sure [facility] Start: 12-06-2021 End: 12-08-2022 Cigarettes smoked current (pack per day) - Reported 0.3 [facility] Work Phone: Start: 12-06-2021 End: 10-05-2023 Tobacco use and exposure Smokeless tobacco non-user [facility] Work Phone: Start: 06-06-2022 End: 12-08-2022 Tobacco use panel [facility] Work Phone: Adult Depression Screening Assessment 0 [facility] Work Phone: Medical Equipment Procedure Code Equipment Code Equipment Original Text Equipment Identifier Dates [id number], [id number], [id number], [id number] Start: 07-15-2019 Comment on above: Test blood sugar(s) 3 times daily. Dx: Type 2 DM - Controlled E11.9 Insulin: No Test blood sugar(s) 2 times daily. Dx: Type 2 DM - Uncontrolled E11.65 Insulin: No Clinical Notes 05-16-2016 to 12-10-2023 Telephone Encounter - Maryanne Gardner MSW - 12/10/2023 10:01 AM EDTTelephone Encounter - Maryanne Gardner MSW - 12/10/2023 10:01 AM Emiliano Navarrete DO - 12/09/2023 9:26 AM EDT Note Date & Type Note Facility 12-10-2023 Telephone encounter Note Patient and Sw discussed housing needs. Patient notes that she would like to downsize where she is currently living. Sw notes a couple of possible helpful resources ie. [employer], [employer]. There is a cost to [employer]. [employer] helps with organizing, helping get rid of unwanted items. [employer] could also be a good agency to help with looking at independent living. Sw will compile resource materials and mail to patient home. Sw will also mail out [facility] Older Adult Resource Directory. [facility] 12-10-2023 Miscellaneous Notes Patient and Sw discussed housing needs. Patient notes that she would like to downsize where she is currently living. Sw notes a couple of possible helpful resources ie. [employer], [employer]. There is a cost to [employer]. [employer] helps with organizing, helping get rid of unwanted items. [employer] could also be a good agency to help with looking at independent living. Sw will compile resource materials and mail to patient home. Sw will also mail out [facility] Older Adult Resource Directory. documented in this encounter [facility] 12-09-2023 Note HNO ID: [id number] Author: EMILIANO PELLETIER, DO Service: ? Author Type: Physician Type: Progress Notes Filed: 12/09/2023 12:04 Note Text: CC: Magui Jimenez is a 78 year old female who presents to the office for follow up HPI: flank pain right and left side, aching, sometimes sharp pains. No known injuries. Has been active with mopping floors but no known injuries. Has been using ice and heating pad and tylenol. Pain is up to a 7/10 on pain scale. Worse pain with movement. Symptoms started in September. Right breast lump/mass, diagnosed with breast CA, was seen by breast surgeon Dr. Menon, general [facility] Dr[facility] Shaffer [facility] in the last 5 years. Was told need surgical excision and chemotherapy/radiation would be needed. She stated at that time that she has thought about these options and I don't want to do any of it. I won't claim that I have breast cancer. I understand there is a lump there but I really believe as a Islam that I am at peace with this decision. Denies any breast pain or skin changes or nipple discharge. has been Refusing to treat it and understands risks involved. She still feels this same way and doesn't want to undergo chemotherapy or radiation treatment. She is willing to reconsider seeing the Breast surgeon/general surgeon for opinion, but refuses any chemo or radiation treatment. She is struggling more with the pain that the breast cancer is causing. She states that her appetite is normal. she has been eating healthy foods and no junk foods Vitamin D deficiency, taking supplement regularly she states Hx of anemia, no bleeding or fatigue concerns. Tolerating her metformin- doesn't regularly check her blood glucose because she doesn't want to and she states that she feels well Denies any Blood in stools or severe joint pains or rashes. PAST MEDICAL HISTORY Diagnosis Date Anemia, unspecified 02/17/2004 normocytic; iron, B12, folate, thyroid, hgb electrophereesis all WNL 02/20. Anemia did improve on supplemental iron. Degeneration of lumbar or lumbosacral intervertebral disc 02/16/2006 per xray Dermatophytosis of nail 06/16/[address] Stuart Diabetic peripheral neuropathy (HCC) Elevated sedimentation rate Essential hypertension, benign Macular degeneration (senile) of retina, unspecified 03/19/2004 macular edema from diabetic retinopathy with best corrected vision 20/50. Sees retinal specialist Dr. Haroon Claros Malignant neoplasm of overlapping sites of right female breast (HCC) 02/2020 Nonspecific (abnormal) findings on radiological and other examination of skull and head 11/16/2005 MRI brain: left pituitary enlargement needing further evaluation Other chest pain 12/18/2003 UT ruled out. Adenosine stress test WNL; 2d echo [id number] Psoriasis Pure hypercholesterolemia Type II or unspecified type diabetes mellitus with ophthalmic manifestations, not stated as uncontrolled(250.50) 02/16/1985 PAST SURGICAL HISTORY Procedure Laterality Date BREAST BIOPSY HX Right 01/26/2020 CHOLECYSTECTOMY OVARIAN CYSTECTOMY approx. 1989 RPR RETINAL DTCHMNT DRG SUBRETINAL FLUID PC Laser repair retinal detach Current Outpatient Medications Medication Sig meloxicam (MOBIC) 15 mg tablet Take 1 tablet by mouth once daily. For pain as needed, Take with food. metFORMIN (GLUCOPHAGE) 1,000 mg tablet Take 1 tablet by mouth two times a day with meals. enalapril (VASOTEC) 20 mg tablet Take 1 tablet by mouth two times a day. blood sugar diagnostic (BLOOD GLUCOSE TEST) test strip Test blood sugar(s) 2 times daily. Dx: Type 2 DM - Uncontrolled E11.65 Insulin: No Lancets lancets Test blood sugar(s) 2 times daily. Dx: Type 2 DM - Uncontrolled E11.65 Insulin: No VITAMIN A ORAL Take 1 tablet by mouth as needed. (Patient not taking: Reported on 10/13/2023) CALCIUM-VITAMIN D3 ORAL Take 1 tablet by mouth once daily. acetaminophen (TYLENOL EXTRA STRENGTH) 500 mg tablet Take 500 mg by mouth as needed. omega-3/dha/epa/dpa/fish oil (OMEGA-3 2100 ORAL) Take 1 tablet by mouth twice daily. (Patient not taking: Reported on 10/13/2023) Lancets lancets Test blood sugar(s) 3 times daily. Dx: Type 2 DM - Controlled E11.9 Insulin: No blood sugar diagnostic (BLOOD GLUCOSE TEST) test strip Test blood sugar(s) 3 times daily. Dx: Type 2 DM - Controlled E11.9 Insulin: No nystatin (MYCOSTATIN) powder Apply 1 application to affected area twice daily as needed (itching between breasts). Blood Pressure Cuff - Home Use BLOOD PRESSURE CUFF FOR HOME USE. DX: I10 [id number] carb-vit K (ONE-A-DAY WOMENS FORMULA) 18 mg iron-400 mcg-500 mg tab Take 1 tablet by mouth once daily. cyanocobalamin (VITAMIN B-12) 1,000 mcg tab Take 1 tablet by mouth once daily. Aspirin 81 mg Tab Take 1 tablet by mouth once daily. No current facility-administered medications for this visit. ALLERGIES Allergen Reactions Lovastatin Rash Vicodin [Hydrocodo (more content not included)... [facility] 12-09-2023 History of Present illness Narrative CC: Magui Jimenez is a 78 year old female who presents to the office for follow up HPI: flank pain right and left side, aching, sometimes sharp pains. No known injuries. Has been active with mopping floors but no known injuries. Has been using ice and heating pad and tylenol. Pain is up to a 7/10 on pain scale. Worse pain with movement. Symptoms started in September. Right breast lump/mass, diagnosed with breast CA, was seen by breast surgeon Dr. Menon, general surgeon Dr. Shaffer and [facility] DR. Winn in the last 5 years. Was told need surgical excision and chemotherapy/radiation would be needed. She stated at that time that she has thought about these options and I don't want to do any of it. I won't claim that I have breast cancer. I understand there is a lump there but I really believe as a Islam that I am at peace with this decision. Denies any breast pain or skin changes or nipple discharge. has been Refusing to treat it and understands risks involved. She still feels this same way and doesn't want to undergo chemotherapy or radiation treatment. She is willing to reconsider seeing the Breast surgeon/general surgeon for opinion, but refuses any chemo or radiation treatment. She is struggling more with the pain that the breast cancer is causing. She states that her appetite is normal. she has been eating healthy foods and no junk foods Vitamin D deficiency, taking supplement regularly she states Hx of anemia, no bleeding or fatigue concerns. Tolerating her metformin- doesn't regularly check her blood glucose because she doesn't want to and she states that she feels well Denies any Blood in stools or severe joint pains or rashes. PAST MEDICAL HISTORY Diagnosis Date Anemia, unspecified 02/17/2004 normocytic; iron, B12, folate, thyroid, hgb electrophereesis all WNL 02/20. Anemia did improve on supplemental iron. Degeneration of lumbar or lumbosacral intervertebral disc 02/16/2006 per xray Dermatophytosis of nail 06/16/[address] Stuart Diabetic peripheral neuropathy (HCC) Elevated sedimentation rate Essential hypertension, benign Macular degeneration (senile) of retina, unspecified 03/19/2004 macular edema from diabetic retinopathy with best corrected vision 20/50. Sees retinal specialist Dr. Haroon Claros Malignant neoplasm of overlapping sites of right female breast (HCC) 02/2020 Nonspecific (abnormal) findings on radiological and other examination of skull and head 11/16/2005 MRI brain: left pituitary enlargement needing further evaluation Other chest pain 12/18/2003 UT ruled out. Adenosine stress test WNL; 2d echo [id number] Psoriasis Pure hypercholesterolemia Type II or unspecified type diabetes mellitus with ophthalmic manifestations, not stated as uncontrolled(250.50) 02/16/1985 PAST SURGICAL HISTORY Procedure Laterality Date BREAST BIOPSY HX Right 01/26/2020 CHOLECYSTECTOMY OVARIAN CYSTECTOMY approx. 1989 RPR RETINAL DTCHMNT DRG SUBRETINAL FLUID PC Laser repair retinal detach Current Outpatient Medications Medication Sig meloxicam (MOBIC) 15 mg tablet Take 1 tablet by mouth once daily. For pain as needed, Take with food. metFORMIN (GLUCOPHAGE) 1,000 mg tablet Take 1 tablet by mouth two times a day with meals. enalapril (VASOTEC) 20 mg tablet Take 1 tablet by mouth two times a day. blood sugar diagnostic (BLOOD GLUCOSE TEST) test strip Test blood sugar(s) 2 times daily. Dx: Type 2 DM - Uncontrolled E11.65 Insulin: No Lancets lancets Test blood sugar(s) 2 times daily. Dx: Type 2 DM - Uncontrolled E11.65 Insulin: No VITAMIN A ORAL Take 1 tablet by mouth as needed. (Patient not taking: Reported on 10/13/2023) CALCIUM-VITAMIN D3 ORAL Take 1 tablet by mouth once daily. acetaminophen (TYLENOL EXTRA STRENGTH) 500 mg tablet Take 500 mg by mouth as needed. omega-3/dha/epa/dpa/fish oil (OMEGA-3 2100 ORAL) Take 1 tablet by mouth twice daily. (Patient not taking: Reported on 10/13/2023) Lancets lancets Test blood sugar(s) 3 times daily. Dx: Type 2 DM - Controlled E11.9 Insulin: No blood sugar diagnostic (BLOOD GLUCOSE TEST) test strip Test blood sugar(s) 3 times daily. Dx: Type 2 DM - Controlled E11.9 Insulin: No nystatin (MYCOSTATIN) powder Apply 1 application to affected area twice daily as needed (itching between breasts). Blood Pressure Cuff - Home Use BLOOD PRESSURE CUFF FOR HOME USE. DX: I10 rx-mn-epju-FA-Ca carb-vit K (ONE-A-DAY WOMENS FORMULA) 18 mg iron-400 mcg-500 mg tab Take 1 tablet by mouth once daily. cyanocobalamin (VITAMIN B-12) 1,000 mcg tab Take 1 tablet by mouth once daily. Aspirin 81 mg Tab Take 1 tablet by mouth once daily. No current facility-administered medications for this visit. ALLERGIES Allergen Reactions Lovastatin Rash Vicodin [Hydrocodon* Intolerance vomiting, nausea, unsteady Social History Tobacco Use Smoking status: Former Current packs/day: 0.00 Average packs/day: 0.3 packs/day for 6.0 years (1.5 ttl pk-yrs) Types: Cigarettes Start date: 02/16/1970 Quit date: 02/17/1976 Years since quittin.8 Smokeless tobacco: Never Substance Use Topics Alcohol use: No Drug use: No ROS: See HPI PE: BP 160/80 Pulse 80 Temp (Src) 97.8 (Temporal) Resp 20 Wt 125 lb 10.6 oz (57.0kg) LMP 06/02/1989 Gen: A&O, NAD, non-toxic appearing, Pleasant, cooperative HEENT: NT/AC, PERRLA, EOMs intact b/l, nares clear and patent b/l, pharynx without erythema, exudate or lesions. Uvula midline, MMM. EACs without erythema or debris. TMs pearly huizar with intact landmarks b/l. Neck: supple, No cervical LAD, no thyromegaly, no carotid bruits CV: RRR, normal S1 and S2, no murmurs, no gallops, no rubs, Pulses 2+ and symmetric in UE and LE b/l Lungs: normal respiratory effort, CTA b/l, no wheezing or rhonchi or rales Abd: soft, NT, ND, +BS, no hepatosplenomegaly MS: gait is slowed but stable TTP thoracic and ribs right >left with midline pain as well as muscle tension present, Neuro: CN II-XII intact b/l, strength 5/5 b/l UE and LE, DTRs 2/4 UE and LE, sensation intact. Skin: warm, dry, intact, No rashes or lesions on exposed skin. Foot exam: Monofilament wnl on right and left feet. No edema, normal pulses PDMP website checked and validated. All prescriptions have been APPROPRIATELY filled. No suspicious activity was identified. 12/09/2023 by Emiliano Pelletier DO ASSESSMENT/PLAN: 1. Mass of right breast, unspecified quadrant - ICD9: 611.72, ICD10: N63.10 (primary diagnosis) Trial of oxycodone medication to help with the malignancy related pain She isn't willing to consider palliative/hospice care She isn't willing for me to call family to discuss her symptoms/status. She states I don't want to burden them with too much. She promises that she is going to discuss with her family that her cancer is likely what is contributing to her pain and that she is not willing to do chemo or radiation treatments. F/u in 1-2 months or earlier in office as needed. - OXYCODONE 5 MG TABLET - OXYCODONE 5 MG TABLET - OXYCODONE 5 MG TABLET 2. Malignant neoplasm of upper-outer quadrant of right breast in female, estrogen receptor negative (HCC) - ICD9: 174.4, V86.1, ICD10: C50.411, Z17.1 Trial of oxycodone medication to help with the malignancy related pain She isn't willing to consider palliative/hospice care She isn't willing for me to call family to discuss her symptoms/status. She states I don't want to burden them with too much. She promises that she is going to discuss with her family that her cancer is likely what is contributing to her pain and that she is not willing to do chemo or radiation treatments. F/u in 1-2 months or earlier in office as needed. - OXYCODONE 5 MG TABLET - OXYCODONE 5 MG TABLET - OXYCODONE 5 MG TABLET 3. Chest wall pain - ICD9: 786.52, ICD10: R07.89 Trial of oxycodone medication to help with the malignancy related pain She isn't willing to consider palliative/hospice care She isn't willing for me to call family to discuss her symptoms/status. She states I don't want to burden them with too much. She promises that she is going to discuss with her family that her cancer is likely what is contributing to her pain and that she is not willing to do chemo or radiation treatments. F/u in 1-2 months or earlier in office as needed. - OXYCODONE 5 MG TABLET - OXYCODONE 5 MG TABLET - OXYCODONE 5 MG TABLET 4. Controlled type 2 diabetes mellitus with complication, without long-term current use of insulin (HCC) - ICD9: 250.90, ICD10: E11.8 stable 5. Vitamin B12 deficiency - ICD9: 266.2, ICD10: E53.8 stable 6. Essential hypertension, benign - ICD9: 401.1, ICD10: I10 - Controlled - Continue current medications - Recommend home blood pressure monitoring, to bring results to next visit - Encouraged sodium restriction, DASH or Mediterranean diet - Recommend regular aerobic exercise 7. Pure hypercholesterolemia - ICD9: 272.0, ICD10: E78.00 stable 8. Vitamin D deficiency - ICD9: 268.9, ICD10: E55.9 stable Emiliano Pelletier DO Return if no improvement. Follow up with Emiliano Pelletier DO. To ER if develops chest pain, shortness of breath. Discussed risks, benefits, alternatives, and potential side effects of medications. Patient/Guardian expressed understanding and agreed with the plan. See patient instructions. Emiliano Pelletier DO [address] [place] [address] documented in this encounter [facility] 11-05-2023 Telephone encounter Note Attempted to contact patient via telephone regarding upcoming NEW patient appointment with Dr. Strong on 11/06/23. [facility] relaying the message below: This is the [facility] calling regarding your upcoming appointment with Dr. Strong. Please complete the assigned pre-visit questionnaires on [facility] prior to your appointment. To avoid a delay in your care, please bring any radiology images that have been done outside of the [facility] on a disk to be viewed at your appointment. Dr. Strong is an Interventional Pain Management provider specializing in the Spine. Please be aware that this appointment is a consult only and narcotics will NOT be prescribed. He treats with physical therapy, injections of the spine or joints, and non-narcotic medications. Dr. Strong will not take over and manage any medications that are already being prescribed by another provider. [facility] 11-05-2023 Miscellaneous Notes Attempted to contact patient via telephone regarding upcoming NEW patient appointment with Dr. Strong on 11/06/23. [facility] relaying the message below: This is the [facility] calling regarding your upcoming appointment with Dr. Strong. Please complete the assigned pre-visit questionnaires on [facility] prior to your appointment. To avoid a delay in your care, please bring any radiology images that have been done outside of the [facility] on a disk to be viewed at your appointment. Dr. Strong is an Interventional Pain Management provider specializing in the Spine. Please be aware that this appointment is a consult only and narcotics will NOT be prescribed. He treats with physical therapy, injections of the spine or joints, and non-narcotic medications. Dr. Strong will not take over and manage any medications that are already being prescribed by another provider. documented in this encounter [facility] 10-16-2023 Telephone encounter Note Pt informed. Please schedule pt with pain management. Raissa Vazquez MA [facility] 10-16-2023 Miscellaneous Notes Pt informed. Please schedule pt with pain management. Raissa Vazquez MA I recommend she see pain management for further assessment, treatment. Jared Chen APRN.CNP Pt informed, verbalized understanding. Reports she is still in pain. Reports minimal relief with mobic. Please advise next step. Raissa Vazquez MA Please let her know that her back and rib xrays both look normal. Jared Chen APRN.CNP documented in this encounter [facility] 10-16-2023 Telephone encounter Note I recommend she see pain management for further assessment, treatment. Jared Chen APRN.CNP T [facility] 10-16-2023 Telephone encounter Note Pt informed, verbalized understanding. Reports she is still in pain. Reports minimal relief with mobic. Please advise next step. Raissa Vazquez MA [facility] 10-15-2023 Telephone encounter Note Please let her know that her back and rib xrays both look normal. Jared Chen APRN.CNP T [facility] 10-13-2023 Nurse Note Radiology called. Dr. Griffin ordered a chest xray and right rib series today, but Dr. Pelletier had already ordered bilateral ribs, chest xray, and thoracic spine on 10/05/2023 that the patient never completed. Dr. Pelletier's orders will have more views than the orders Dr. Griffin had placed. Which orders should radiology complete, as the PSR linked all of the orders together today when the patient was registered. Advised to complete Dr. Pelletier's orders, as they had more views and I would have Dr. Griffin remove her orders. Coby Payan RN T [facility] 10-13-2023 Nurse Note Radiology called. Dr. Griffin ordered a chest xray and right rib series today, but Dr. Pelletier had already ordered bilateral ribs, chest xray, and thoracic spine on 10/05/2023 that the patient never completed. Dr. Pelletier's orders will have more views than the orders Dr. Griffin had placed. Which orders should radiology complete, as the PSR linked all of the orders together today when the patient was registered. Advised to complete Dr. Pelletier's orders, as they had more views and I would have Dr. Griffin remove her orders. Coby Payan, RN Dr. Griffin ordered lab work, a chest x-ray, and asked if Dr. Winn, in hematology/oncology could see Magui for a consultation today. Spoke with clerical and clinical in hem/onc, they will work her in today at 1600, pt needs to arrive at 1530. Spoke with patient. Reviewed everything that Dr. Griffin had ordered and she refused all treatments. She stated that she just had lab work with Dr. Pelletier in September and did not feel that it needed to be repeated as Dr. Pelletier had not notified her that anything was abnormal, except her iron was low and she was told to start iron tablets, but she is not taking them due to the constipation they gave her. I asked about her completing the chest xray today. She asked why it needed to be done. I advised that with her previous breast cancer diagnosis and her recent complaints of rib and thoracic back pain, Dr. Griffin is concerned that her cancer has spread to her bones and that is what is causing her pain. She stated that she was never told that the cancer would spread and she did not feel that she needed the xray completed. She asked why she needed to see Dr. Winn. I advised that she had previously seen him in February of 2020 and he had discussed chemotherapy and radiation with her. I advised that Dr. Griffin wanted her evaluated for the possibility that her cancer had spread and see what options we had for treatment or pain control. Magui stated that she did not want to see Dr. Winn. I again reviewed all of the orders with Magui, the reasons why they were ordered, and what information they would provide to us. Magui refused. Her daughter brought her to this appointment, I asked if it would be possible to speak with Magui and her daughter, to review all of this information and Magui refused. I advised that I would notify Dr. Winn's office that she would not be attending the consultation today. I also advised that the orders were in for the lab work and the chest xray, but we could not make her complete any of the testing, we could only suggest what testing should be completed to help us diagnose her pain, but it was up to her whether or not she wanted to complete those. She finally agreed to complete the chest xray today. Dr. Winn's office notified to cancel the consultation today. Dr. Griffin notified of the above, she will notify Dr. Pelletier. Coby Payan RN REVIEW OF SYSTEMS: General: The patient denies fatigue, denies weight loss, denies weight gain, denies feeling hot, and denies feelings of cold. Eyes: The patient denies glaucoma, denies eye injury/surgery, does not wear glasses or contacts. Ear/Nose/Throat: The patient denies allergies, denies hayfever, denies ear infections, and denies bloody noses. Cardiovascular: The patient denies chest pain, denies heart disease, NOTES high blood pressure,denies cardiac stent, denies prior heart attack, denies irregular heart beat, NOTES high cholesterol, denies poor circulation, denies heart failure, other cardiac issues, denies claudication, denies cold feet, denies peripheral arterial stent. Respiratory: The patient denies tuberculosis, denies pneumonia, denies frequent cough, denies pulmonary embolism, denies shortness of breath, and denies coughing up blood. Gastrointestinal: The patient denies difficulty swallowing, denies acid reflux, denies ulcers, denies vomiting, denies jaundice/hepatitis, denies gallbladder problems, denies black or tarry stools, denies hemorrhoids, denies bleeding from rectum, denies diverticulitis, denies constipation, denies diarrhea, denies loss of stool control, and denies hernias. Kidney/Bladder: The patient denies kidney stones, denies urine infections, and denies bloody urine. Skin: The patient denies a history of skin cancer, denies bleeding/changing moles, and denies a history of skin rash. Neurologic: The patient denies a history of epilepsy/convulsions, denies headaches, denies head/spinal injuries, and denies stroke/TIA. Psychiatric: The patient denies psychiatric medications, denies depression, and denies voices, denies substance abuse. Endocrine: The patient denies thyroid disorders, NOTES diabetes, and denies hormonal problems. Hematologic: The patient denies a history of bruising, denies bleeding, and denies anemia, denies blood clots. Infections: The patient NOTES a history of measles and mumps, denies rheumatic fever, and denies sexually transmitted diseases. Musculoskeletal: The patient NOTES back pain/injury, NOTES back problems, NOTES sciatica, denies knee/foot trouble, denies arthritis, or denies gout. When was patient's last Mammogram screening? 01/2020 Last Colonoscopy: NEVER Lucia Huffman RN documented in this encounter [facility] 10-13-2023 Telephone encounter Note Images from the original note were not included. Nurse Coby from Dr. Griffin's office called this PSS to get patient scheduled with Dr. Winn for Breast Cancer with probable mets. This PSS consulted with clinical. Patient scheduled for 4:00 PM today. Per Teams message: Appointment cancelled and clinical notified. [facility] 10-13-2023 Miscellaneous Notes Images from the original note were not included. Nurse Tenorio from Dr. Griffin's office called this PSS to get patient scheduled with Dr. Winn for Breast Cancer with probable mets. This PSS consulted with clinical. Patient scheduled for 4:00 PM today. Per Teams message: Appointment cancelled and clinical notified. documented in this encounter [facility] 10-13-[address] Griffin ordered lab work, a chest x-ray, and asked if Dr. Winn, in hematology/oncology could see Magui for a consultation today. Spoke with clerical and clinical in hem/onc, they will work her in today at 1600, pt needs to arrive at 1530. Spoke with patient. Reviewed everything that Dr. Griffin had ordered and she refused all treatments. She stated that she just had lab work with Dr. Pelletier in September and did not feel that it needed to be repeated as Dr. Pelletier had not notified her that anything was abnormal, except her iron was low and she was told to start iron tablets, but she is not taking them due to the constipation they gave her. I asked about her completing the chest xray today. She asked why it needed to be done. I advised that with her previous breast cancer diagnosis and her recent complaints of rib and thoracic back pain, Dr. Griffin is concerned that her cancer has spread to her bones and that is what is causing her pain. She stated that she was never told that the cancer would spread and she did not feel that she needed the xray completed. She asked why she needed to see Dr. Winn. I advised that she had previously seen him in February of 2020 and he had discussed chemotherapy and radiation with her. I advised that Dr. Griffin wanted her evaluated for the possibility that her cancer had spread and see what options we had for treatment or pain control. Magui stated that she did not want to see Dr. Winn. I again reviewed all of the orders with Magui, the reasons why they were ordered, and what information they would provide to us. Magui refused. Her daughter brought her to this appointment, I asked if it would be possible to speak with Magui and her daughter, to review all of this information and Magui refused. I advised that I would notify Dr. Winn's office that she would not be attending the consultation today. I also advised that the orders were in for the lab work and the chest xray, but we could not make her complete any of the testing, we could only suggest what testing should be completed to help us diagnose her pain, but it was up to her whether or not she wanted to complete those. She finally agreed to complete the chest xray today. Dr. Winn's office notified to cancel the consultation today. Dr. Griffin notified of the above, she will notify Dr. Pelletier. Coby Payan RN [facility] 10-13-2023 History of Present illness Narrative Radiology Service Progress Note PATIENT NAME: Magui Jimenez DATE OF SERVICE: October 13, 2023 TIME: 12:24 PM PATIENT IDENTITY VERIFICATION COMPLETED USING TWO (2) IDENTIFIERS: Name and Date of confirmed by patient verbally. FALL SCREENING: Has the patient had 2 falls in the last year or 1 fall with injury or currently using an Ambulatory Assistive Device (Walker, Cane, Wheelchair, Crutches, etc.)? No PATIENT GENDER DATA: Female. status: : No status: NO. PATIENT RELEVANT IMPLANT DATA REVIEWED: Not Applicable PATIENT PRESENTS WITH AN IMPLANTABLE OR ATTACHED NEPHROLOGIST: No RADIOLOGY DEPARTMENT: General X-ray: Exam(s) Completed: Chest X-Ray Rib X-Ray: Bilateral Spine X-Ray(s): Thoracic , WITH SWIMMERS. PA CHEST ONLY PER RIB SERIES PERIPHERAL IV DATA: Not applicable SIGNED BY: RT Violeta(Jordyn) October 13, 2023 12:24 PM documented in this encounter [facility] 10-13-2023 Note HNO ID: [id number] Author: ARCELIA MARQUES RT(R) Service: ? Author Type: Technologist Type: Progress Notes Filed: 10/13/2023 12:25 Note Text: Radiology Service Progress Note PATIENT NAME: Magui Jimenez DATE OF SERVICE: October 13, 2023 TIME: 12:24 PM PATIENT IDENTITY VERIFICATION COMPLETED USING TWO (2) IDENTIFIERS: Name and Date of confirmed by patient verbally. FALL SCREENING: Has the patient had 2 falls in the last year or 1 fall with injury or currently using an Ambulatory Assistive Device (Walker, Cane, Wheelchair, Crutches, etc.)? No PATIENT GENDER DATA: Female. status: : No status: NO. PATIENT RELEVANT IMPLANT DATA REVIEWED: Not Applicable PATIENT PRESENTS WITH AN IMPLANTABLE OR ATTACHED NEPHROLOGIST: No RADIOLOGY DEPARTMENT: General X-ray: Exam(s) Completed: Chest X-Ray Rib X-Ray: Bilateral Spine X-Ray(s): Thoracic , WITH SWIMMERS. PA CHEST ONLY PER RIB SERIES PERIPHERAL IV DATA: Not applicable SIGNED BY: RT Violeta(Jordyn) October 13, 2023 12:24 PM [facility] 10-13-2023 History of Present illness Narrative Magui Jimenez 1945 REFERRING PHYSICIAN: Emiliano Pelletier DO CHIEF COMPLAINT: Follow Up (Mass of rt breast) HPI: The patient is a 77 year old female presents with right breast pain and mass of right breast. She had been diagnosed with triple negative breast cancer in 2020. She had been seen by Dr. Menon and did not schedule for treatment. She states that it was because she felt really good and did not want to change the ay she felt. She states that it was not bothering me and I am oriental orthodox and trust in God's hand At present, she notes a large mass of her right breast. She states that her breast is very heavy and has pulling pain., She also notes pain in her mid back and right rib cage and right shoulder. She states that she gets some relief of her pain with acetaminophen. PAST MEDICAL HISTORY 02/17/2004: Anemia, unspecified Comment: normocytic; iron, B12, folate, thyroid, hgb electrophereesis all WNL 02/20. Anemia did improve on supplemental iron. 02/16/2006: Degeneration of lumbar or lumbosacral intervertebral disc Comment: per xray 06/16/2005: Dermatophytosis of nail Comment: Lamisil tx per Dr. Stuart No date: Diabetic peripheral neuropathy (HCC) No date: Elevated sedimentation rate No date: Essential hypertension, benign 03/19/2004: Macular degeneration (senile) of retina, unspecified Comment: macular edema from diabetic retinopathy with best corrected vision 20/50. Sees retinal specialist Dr. Haroon Claros 02/2020: Malignant neoplasm of overlapping sites of right female breast (HCC) 11/16/2005: Nonspecific (abnormal) findings on radiological and other examination of skull and head Comment: MRI brain: left pituitary enlargement needing further evaluation 12/18/2003: Other chest pain Comment: UT ruled out. Adenosine stress test WNL; 2d echo [id number]% No date: Psoriasis No date: Pure hypercholesterolemia 02/16/1985: Type II or unspecified type diabetes mellitus with ophthalmic manifestations, not stated as uncontrolled(250.50) PAST SURGICAL HISTORY 01/26/2020: BREAST BIOPSY HX; Right No date: CHOLECYSTECTOMY approx. 1989: OVARIAN CYSTECTOMY No date: RPR RETINAL DTCHMNT DRG SUBRETINAL FLUID PC Comment: Laser repair retinal detach Current Outpatient Medications Medication Sig meloxicam (MOBIC) 15 mg tablet Take 1 tablet by mouth once daily. For pain as needed, Take with food. metFORMIN (GLUCOPHAGE) 1,000 mg tablet Take 1 tablet by mouth two times a day with meals. enalapril (VASOTEC) 20 mg tablet Take 1 tablet by mouth two times a day. blood sugar diagnostic (BLOOD GLUCOSE TEST) test strip Test blood sugar(s) 2 times daily. Dx: Type 2 DM - Uncontrolled E11.65 Insulin: No Lancets lancets Test blood sugar(s) 2 times daily. Dx: Type 2 DM - Uncontrolled E11.65 Insulin: No CALCIUM-VITAMIN D3 ORAL Take 1 tablet by mouth once daily. acetaminophen (TYLENOL EXTRA STRENGTH) 500 mg tablet Take 500 mg by mouth as needed. Lancets lancets Test blood sugar(s) 3 times daily. Dx: Type 2 DM - Controlled E11.9 Insulin: No blood sugar diagnostic (BLOOD GLUCOSE TEST) test strip Test blood sugar(s) 3 times daily. Dx: Type 2 DM - Controlled E11.9 Insulin: No nystatin (MYCOSTATIN) powder Apply 1 application to affected area twice daily as needed (itching between breasts). Blood Pressure Cuff - Home Use BLOOD PRESSURE CUFF FOR HOME USE. DX: I10 no-ip-irxn-FA-Ca carb-vit K (ONE-A-DAY WOMENS FORMULA) 18 mg iron-400 mcg-500 mg tab Take 1 tablet by mouth once daily. cyanocobalamin (VITAMIN B-12) 1,000 mcg tab Take 1 tablet by mouth once daily. Aspirin 81 mg Tab Take 1 tablet by mouth once daily. VITAMIN A ORAL Take 1 tablet by mouth as needed. (Patient not taking: Reported on 10/13/2023) omega-3/dha/epa/dpa/fish oil (OMEGA-3 2100 ORAL) Take 1 tablet by mouth twice daily. (Patient not taking: Reported on 10/13/2023) No current facility-administered medications for this visit. ALLERGIES: Lovastatin and Vicodin [Hydrocodone-Acetaminophen] PERSONAL HISTORY: Social History Tobacco Use Smoking status: Former Current packs/day: 0.00 Average packs/day: 0.3 packs/day for 6.0 years (1.5 ttl pk-yrs) Types: Cigarettes Start date: 02/16/1970 Quit date: 02/17/1976 Years since quittin.6 Smokeless tobacco: Never Substance Use Topics Alcohol use: No Drug use: No FAMILY HISTORY Problem Relation Age of Onset Diabetes Mother Stroke Father Diabetes Brother The review of systems data was entered by the nurse and reviewed by wa Nursing Notes: Lucia Huffman RN 10/13/2023 9:25 AM Signed REVIEW OF SYSTEMS: General: The patient denies fatigue, denies weight loss, denies weight gain, denies feeling hot, and denies feelings of cold. Eyes: The patient denies glaucoma, denies eye injury/surgery, does not wear glasses or contacts. Ear/Nose/Throat: The patient denies allergies, denies hayfever, denies ear infections, and denies bloody noses. Cardiovascular: The patient denies chest pain, denies heart disease, NOTES high blood pressure,denies cardiac stent, denies prior heart attack, denies irregular heart beat, NOTES high cholesterol, denies poor circulation, denies heart failure, other cardiac issues, denies claudication, denies cold feet, denies peripheral arterial stent. Respiratory: The patient denies tuberculosis, denies pneumonia, denies frequent cough, denies pulmonary embolism, denies shortness of breath, and denies coughing up blood. Gastrointestinal: The patient denies difficulty swallowing, denies acid reflux, denies ulcers, denies vomiting, denies jaundice/hepatitis, denies gallbladder problems, denies black or tarry stools, denies hemorrhoids, denies bleeding from rectum, denies diverticulitis, denies constipation, denies diarrhea, denies loss of stool control, and denies hernias. Kidney/Bladder: The patient denies kidney stones, denies urine infections, and denies bloody urine. Skin: The patient denies a history of skin cancer, denies bleeding/changing moles, and denies a history of skin rash. Neurologic: The patient denies a history of epilepsy/convulsions, denies headaches, denies head/spinal injuries, and denies stroke/TIA. Psychiatric: The patient denies psychiatric medications, denies depression, and denies voices, denies substance abuse. Endocrine: The patient denies thyroid disorders, NOTES diabetes, and denies hormonal problems. Hematologic: The patient denies a history of bruising, denies bleeding, and denies anemia, denies blood clots. Infections: The patient NOTES a history of measles and mumps, denies rheumatic fever, and denies sexually transmitted diseases. Musculoskeletal: The patient NOTES back pain/injury, NOTES back problems, NOTES sciatica, denies knee/foot trouble, denies arthritis, or denies gout. When was patient's last Mammogram screening? 01/2020 Last Colonoscopy: NEVER DANA Steel Rhonda, RN 10/13/2023 10:[address] Griffin ordered lab work, a chest x-ray, and asked if Dr. Winn, in hematology/oncology could see Magui for a consultation today. Spoke with clerical and clinical in hem/onc, they will work her in today at 1600, pt needs to arrive at 1530. Spoke with patient. Reviewed everything that Dr. Griffin had ordered and she refused all treatments. She stated that she just had lab work with Dr. Pelletier in September and did not feel that it needed to be repeated as Dr. Pelletier had not notified her that anything was abnormal, except her iron was low and she was told to start iron tablets, but she is not taking them due to the constipation they gave her. I asked about her completing the chest xray today. She asked why it needed to be done. I advised that with her previous breast cancer diagnosis and her recent complaints of rib and thoracic back pain, Dr. Griffin is concerned that her cancer has spread to her bones and that is what is causing her pain. She stated that she was never told that the cancer would spread and she did not feel that she needed the xray completed. She asked why she needed to see Dr. Winn. I advised that she had previously seen him in February of 2020 and he had discussed chemotherapy and radiation with her. I advised that Dr. Griffin wanted her evaluated for the possibility that her cancer had spread and see what options we had for treatment or pain control. Magui stated that she did not want to see Dr. Winn. I again reviewed all of the orders with Magui, the reasons why they were ordered, and what information they would provide to us. Magui refused. Her daughter brought her to this appointment, I asked if it would be possible to speak with Magui and her daughter, to review all of this information and Magui refused. I advised that I would notify Dr. Winn's office that she would not be attending the consultation today. I also advised that the orders were in for the lab work and the chest xray, but we could not make her complete any of the testing, we could only suggest what testing should be completed to help us diagnose her pain, but it was up to her whether or not she wanted to complete those. She finally agreed to complete the chest xray today. Dr. Winn's office notified to cancel the consultation today. Dr. Griffin notified of the above, she will notify Dr. Pelletier. DANA Shaver Rhonda, RN 10/13/2023 10:41 AM Signed Radiology called. Dr. Griffin ordered a chest xray and right rib series today, but Dr. Pelletier had already ordered bilateral ribs, chest xray, and thoracic spine on 10/05/2023 that the patient never completed. Dr. Pelletier's orders will have more views than the orders Dr. Griffin had placed. Which orders should radiology complete, as the PSR linked all of the orders together today when the patient was registered. Advised to complete Dr. Pelletier's orders, as they had more views and I would have Dr. Griffin remove her orders. Coby Payan RN PHYSICAL EXAMINATION: General: The patient is 77 year old female, well nourished, well hydrated in no acute distress. The patient is oriented to time, place, and person. VITALS: Blood pressure 140/84, pulse 110, temperature 37.2 C (99 F), height 163.8 cm (5' 4.5 ), weight 59 kg (130 lb), last menstrual period 06/02/1989, SpO2 93%. Body mass index is 21.97 kg/m . Head - Normocephalic. EOM intact with sclera clear and no icterus noted. Mouth with mucus membranes moist. Neck - supple with no jugular venous distention noted. Trachea is midline. No thyroid enlargement or thyroid nodules detected. No masses noted. Chest/breast - right breast mass - hard firm 10 x 15 cm with overlying nodular erythematous skin changes, no left breast masses noted Lungs - clear to auscultation. Normal breath sounds. No rales/rhonchi/wheezing noted. No labored breathing noted, such as retractions. No cough heard. Heart - normal S1 and S2 auscultated. No rubs/clicks/murmurs noted. Regular rate. Abdomen - soft and benign. . Back: point tenderness noted of lower thoracic vertebrae and also right rib cage Extremities - no calf tenderness noted. No pitting edema noted. Skin - normal skin integrity. 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 I have explained that this breast cancer has significantly increased and probably spread to her bones and possibly elsewhere and that is why she is having pain. I have recommended immediate referral to Hematology/Oncology and explained the reasoning for this. The clinic staff was able to get the patient an appointment for today. However, patient refused to see Hematology/Oncology. I was informed that the patient had a daughter waiting for her in the parking lot, and I asked the patient if I could talk to her daughter - the patient would not allow me to do this. This patient seems not to accept her diagnosis of metastatic breast cancer and that this will continue to worsen and cause her demise, she states that she is very oriental orthodox and will leave herself in God's hands - she had reiterated this multiple times in this patient encounter. With regard to further testing, she was only amenable in sitting for the xrays ordered by Dr. Pelletier. Patient had no further questions about the above At this point in time, I have no surgical options to offer patient, she really needs to be evaluated by Hem/Onc. Given the patient's mindset, she has a poor prognosis. I have confirmed and edited as necessary, the PFSH and ROS obtained by others. Consultation requested by Dr. Emiliano Pelletier for an opinion regarding patient's metastatic breast cancer. My final recommendations will be communicated back to the requesting physician by way of shared Medical record or letter to requesting physician via US mail. Diagnoses: (C50.911, C77.3) Breast cancer 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, right (HCC) (primary encounter diagnosis) (N63.10) Mass of right breast, unspecified quadrant I spent a total of 41 minutes on the date of the service which included preparing to see the patient with review of any pertinent laboratory studies/radiological imaging/medical records, [id number] patient care, obtaining oral medical history from the patient in this encounter, performing a medically appropriate examination, counseling and educating the patient/family/caregiver, and ordering and/or scheduling of medications/tests/procedures, and completing appropriate medical documentation. Tiana Griffin MD documented in this encounter [facility] 10-13-2023 Note HNO ID: [id number] Author: TIANA GRIFFIN MD Service: ? Author Type: Physician Type: Progress Notes Filed: 10/14/2023 09:41 Note Text: Magui Jimenez 1945 REFERRING PHYSICIAN: Emiliano Pelletier DO CHIEF COMPLAINT: Follow Up (Mass of rt breast) HPI: The patient is a 77 year old female presents with right breast pain and mass of right breast. She had been diagnosed with triple negative breast cancer in 2020. She had been seen by Dr. Menon and did not schedule for treatment. She states that it was because she felt really good and did not want to change the ay she felt. She states that it was not bothering me and I am oriental orthodox and trust in God's hand At present, she notes a large mass of her right breast. She states that her breast is very heavy and has pulling pain., She also notes pain in her mid back and right rib cage and right shoulder. She states that she gets some relief of her pain with acetaminophen. PAST MEDICAL HISTORY 02/17/2004: Anemia, unspecified Comment: normocytic; iron, B12, folate, thyroid, hgb electrophereesis all WNL 02/20. Anemia did improve on supplemental iron. 02/16/2006: Degeneration of lumbar or lumbosacral intervertebral disc Comment: per xray 06/16/2005: Dermatophytosis of nail Comment: Lamisil tx per Dr. Stuart No date: Diabetic peripheral neuropathy (HCC) No date: Elevated sedimentation rate No date: Essential hypertension, benign 03/19/2004: Macular degeneration (senile) of retina, unspecified Comment: macular edema from diabetic retinopathy with best corrected vision 20/50. Sees retinal specialist Dr. Haroon Claros 02/2020: Malignant neoplasm of overlapping sites of right female breast (HCC) 11/16/2005: Nonspecific (abnormal) findings on radiological and other examination of skull and head Comment: MRI brain: left pituitary enlargement needing further evaluation 12/18/2003: Other chest pain Comment: UT ruled out. Adenosine stress test WNL; 2d echo [id number]% No date: Psoriasis No date: Pure hypercholesterolemia 02/16/1985: Type II or unspecified type diabetes mellitus with ophthalmic manifestations, not stated as uncontrolled(250.50) PAST SURGICAL HISTORY 01/26/2020: BREAST BIOPSY HX; Right No date: CHOLECYSTECTOMY approx. 1989: OVARIAN CYSTECTOMY No date: RPR RETINAL DTCHMNT DRG SUBRETINAL FLUID PC Comment: Laser repair retinal detach Current Outpatient Medications Medication Sig meloxicam (MOBIC) 15 mg tablet Take 1 tablet by mouth once daily. For pain as needed, Take with food. metFORMIN (GLUCOPHAGE) 1,000 mg tablet Take 1 tablet by mouth two times a day with meals. enalapril (VASOTEC) 20 mg tablet Take 1 tablet by mouth two times a day. blood sugar diagnostic (BLOOD GLUCOSE TEST) test strip Test blood sugar(s) 2 times daily. Dx: Type 2 DM - Uncontrolled E11.65 Insulin: No Lancets lancets Test blood sugar(s) 2 times daily. Dx: Type 2 DM - Uncontrolled E11.65 Insulin: No CALCIUM-VITAMIN D3 ORAL Take 1 tablet by mouth once daily. acetaminophen (TYLENOL EXTRA STRENGTH) 500 mg tablet Take 500 mg by mouth as needed. Lancets lancets Test blood sugar(s) 3 times daily. Dx: Type 2 DM - Controlled E11.9 Insulin: No blood sugar diagnostic (BLOOD GLUCOSE TEST) test strip Test blood sugar(s) 3 times daily. Dx: Type 2 DM - Controlled E11.9 Insulin: No nystatin (MYCOSTATIN) powder Apply 1 application to affected area twice daily as needed (itching between breasts). Blood Pressure Cuff - Home Use BLOOD PRESSURE CUFF FOR HOME USE. DX: I10 wm-jq-hrma-FA-Ca carb-vit K (ONE-A-DAY WOMENS FORMULA) 18 mg iron-400 mcg-500 mg tab Take 1 tablet by mouth once daily. cyanocobalamin (VITAMIN B-12) 1,000 mcg tab Take 1 tablet by mouth once daily. Aspirin 81 mg Tab Take 1 tablet by mouth once daily. VITAMIN A ORAL Take 1 tablet by mouth as needed. (Patient not taking: Reported on 10/13/2023) omega-3/dha/epa/dpa/fish oil (OMEGA-3 2100 ORAL) Take 1 tablet by mouth twice daily. (Patient not taking: Reported on 10/13/2023) No current facility-administered medications for this visit. ALLERGIES: Lovastatin and Vicodin [Hydrocodone-Acetaminophen] PERSONAL HISTORY: Social History Tobacco Use Smoking status: Former Current packs/day: 0.00 Average packs/day: 0.3 packs/day for 6.0 years (1.5 ttl pk-yrs) Types: Cigarettes Start date: 02/16/1970 Quit date: 02/17/1976 Years since quittin.6 Smokeless tobacco: Never Substance Use Topics Alcohol use: No Drug use: No FAMILY HISTORY Problem Relation Age of Onset Diabetes Mother Stroke Father Diabetes Brother The review of systems data was entered by the nurse and reviewed by wa Nursing Notes: Lucia Huffman RN 10/13/2023 9:25 AM Signed REVIEW OF SYSTEMS: General: The patient denies fatigue, denies weight loss, denies weight gain, denies feeling hot, and denies feelings of cold. Eyes: The patient denies glaucoma, denies eye injury/surger (more content not included)... [facility] 10-13-2023 Nurse Note REVIEW OF SYSTEMS: General: The patient denies fatigue, denies weight loss, denies weight gain, denies feeling hot, and denies feelings of cold. Eyes: The patient denies glaucoma, denies eye injury/surgery, does not wear glasses or contacts. Ear/Nose/Throat: The patient denies allergies, denies hayfever, denies ear infections, and denies bloody noses. Cardiovascular: The patient denies chest pain, denies heart disease, NOTES high blood pressure,denies cardiac stent, denies prior heart attack, denies irregular heart beat, NOTES high cholesterol, denies poor circulation, denies heart failure, other cardiac issues, denies claudication, denies cold feet, denies peripheral arterial stent. Respiratory: The patient denies tuberculosis, denies pneumonia, denies frequent cough, denies pulmonary embolism, denies shortness of breath, and denies coughing up blood. Gastrointestinal: The patient denies difficulty swallowing, denies acid reflux, denies ulcers, denies vomiting, denies jaundice/hepatitis, denies gallbladder problems, denies black or tarry stools, denies hemorrhoids, denies bleeding from rectum, denies diverticulitis, denies constipation, denies diarrhea, denies loss of stool control, and denies hernias. Kidney/Bladder: The patient denies kidney stones, denies urine infections, and denies bloody urine. Skin: The patient denies a history of skin cancer, denies bleeding/changing moles, and denies a history of skin rash. Neurologic: The patient denies a history of epilepsy/convulsions, denies headaches, denies head/spinal injuries, and denies stroke/TIA. Psychiatric: The patient denies psychiatric medications, denies depression, and denies voices, denies substance abuse. Endocrine: The patient denies thyroid disorders, NOTES diabetes, and denies hormonal problems. Hematologic: The patient denies a history of bruising, denies bleeding, and denies anemia, denies blood clots. Infections: The patient NOTES a history of measles and mumps, denies rheumatic fever, and denies sexually transmitted diseases. Musculoskeletal: The patient NOTES back pain/injury, NOTES back problems, NOTES sciatica, denies knee/foot trouble, denies arthritis, or denies gout. When was patient's last Mammogram screening? 01/2020 Last Colonoscopy: NEVER Lucia Huffman RN [facility] 10-08-2023 Telephone encounter Note Patient calls and states that the iron she has been taking makes her stools firm. After a while stools become loose. Patient states that she has noticed that she has to urinate more. Patient continues also to have stomach pains. Patient states that her back and rib pain is getting worse. Advised patient that Dr. Pelletier has x ray orders for this and patient needs to come and get those done so that Dr. Pelletier know what is going on. Patient voiced understanding. Patient states that she will be in tomorrow to have these done. Patient wanted provider aware of this. Devi Holt RN [facility] 10-08-2023 Miscellaneous Notes Patient calls and states that the iron she has been taking makes her stools firm. After a while stools become loose. Patient states that she has noticed that she has to urinate more. Patient continues also to have stomach pains. Patient states that her back and rib pain is getting worse. Advised patient that Dr. Pelletier has x ray orders for this and patient needs to come and get those done so that Dr. Pelletier know what is going on. Patient voiced understanding. Patient states that she will be in tomorrow to have these done. Patient wanted provider aware of this. Devi Holt RN documented in this encounter [facility] 10-05-2023 Note HNO ID: [id number] Author: EMILIANO PELLETIER, DO Service: ? Author Type: Physician Type: Progress Notes Filed: 10/05/2023 10:11 Note Text: Patient presents with: Medicare Wellness Exam HPI: Magui Jimenez is a 77 year old female who presents to the office today for review of health conditions. Concerns today: [employer] wellness visit and problem based visit 1 week ago started with flank pain right and left side, aching, sometimes sharp pains. No known injuries. Has been active with mopping floors but no known injuries. Has been using ice and heating pad and tylenol. Pain is up to a 7/10 on pain scale. Worse pain with movement. Right breast lump, diagnosed with breast CA, was seen by breast surgeon Dr. Menon, general surgeon Dr. Shaffer and [facility] DR. Winn in the last 4-5 years. Was told need surgical excision and chemotherapy/radiation would be needed. She stated at that time that she has thought about these options and I don't want to do any of it. I won't claim that I have breast cancer. I understand there is a lump there but I really believe as a Islam that I am at peace with this decision. Denies any breast pain or skin changes or nipple discharge. has been Refusing to treat it and understands risks involved. She still feels this same way and doesn't want to undergo chemotherapy or radiation treatment. She is willing to reconsider seeing the Breast surgeon/general surgeon for opinion, but refuses any chemo or radiation treatment. She states that her appetite is normal. she has been eating healthy foods and no junk foods Vitamin D deficiency, taking supplement regularly she states Hx of anemia, no bleeding or fatigue concerns. Tolerating her metformin- doesn't regularly check her blood glucose because she doesn't want to and she states that she feels well Denies any Blood in stools or severe joint pains or rashes. She is willing to have labs checked- these were ordered. Ms. Jimenez has past history of diabetes. Since our last visit she denies excessive thirst or increased frequency of urination, chest pain or dyspnea , new or unusual visual symptoms, and low sugar/hypoglycemic reactions. Depression- no. Follows a diabetic diet some of the time. She is compliant with medication(s) and is tolerating med(s) without any side effects. She reports checking her glucose on a once a day schedule with sugars in the fasting <150 range. Patient's last HgA1C was Hemoglobin A1C (%) Date Value 06/09/2023 6.9 06/04/2022 7.6 12/03/2020 7.1 04/18/2019 7.0 Hemoglobin A1C (POCT) (%) Date Value 06/06/2021 6.3 ) Last Ophthalmology exam was within the past 12 months Ms. Jimenez reports history of hyperlipidemia. Current therapy includes diet and exercise. Denies side effects of muscle weakness or achiness. Her most recent lipid panels are reviewed. Cholesterol, Total (mg/dL) Date Value 06/09/2023 163 12/03/2020 174 HDL Cholesterol (mg/dL) Date Value 06/09/2023 62 12/03/2020 50 LDL Cholesterol (mg/dL) Date Value 06/09/2023 90 12/03/2020 108 Triglyceride (mg/dL) Date Value 06/09/2023 54 12/03/2020 80 Ms. Jimenez indicates a history of hypertension and states that she is feeling well and denies any symptoms referable to elevated blood pressure. Specifically denies headache, chest pain, palpitations, dyspnea, and peripheral edema. Patient denies any side effects of her medication(s) and is compliant with their regimen. Last 3 Encounter BP Readings: Date: BP: 10/05/2023 146/84 06/09/2023 130/80 12/08/2022 130/80 She watches her diet for sodium, low fat and low cholesterol some of the time. She does not check BP's generally. Magui gets minimal exercise. PAST MEDICAL HISTORY 02/17/2004: Anemia, unspecified Comment: normocytic; iron, B12, folate, thyroid, hgb electrophereesis all WNL 02/20. Anemia did improve on supplemental iron. 02/16/2006: Degeneration of lumbar or lumbosacral intervertebral disc Comment: per xray 06/16/2005: Dermatophytosis of nail Comment: Lamisil tx per Dr. Stuart No date: Diabetic peripheral neuropathy (HCC) No date: Elevated sedimentation rate No date: Essential hypertension, benign 03/19/2004: Macular degeneration (senile) of retina, unspecified Comment: macular edema from diabetic retinopathy with best corrected vision 20/50. Sees retinal specialist Dr. Haroon Claros 02/2020: Malignant neoplasm of overlapping sites of right female breast (HCC) 11/16/2005: Nonspecific (abnormal) findings on radiological and other examination of skull and head Comment: MRI brain: left pituitary enlargement needing further evaluation 12/18/2003: Other chest pain Comment: UT ruled out. Adenosine stress test WNL; 2d echo [id number]% No date: Psoriasis No date: Pure hypercholesterolemia 02/16/1985: Type II or unspecified type diabetes mellitus with ophthalmic manifestations, not stated as uncontrolled(250 (more content not included)... [facility] 10-05-2023 History of Present illness Narrative Patient presents with: Medicare Wellness Exam HPI: Magui Jimenez is a 77 year old female who presents to the office today for review of health conditions. Concerns today: [employer] wellness visit and problem based visit 1 week ago started with flank pain right and left side, aching, sometimes sharp pains. No known injuries. Has been active with mopping floors but no known injuries. Has been using ice and heating pad and tylenol. Pain is up to a 7/10 on pain scale. Worse pain with movement. Right breast lump, diagnosed with breast CA, was seen by breast surgeon Dr. Menon, general surgeon Dr. Shaffer and [facility] DR. Winn in the last 4-5 years. Was told need surgical excision and chemotherapy/radiation would be needed. She stated at that time that she has thought about these options and I don't want to do any of it. I won't claim that I have breast cancer. I understand there is a lump there but I really believe as a Islam that I am at peace with this decision. Denies any breast pain or skin changes or nipple discharge. has been Refusing to treat it and understands risks involved. She still feels this same way and doesn't want to undergo chemotherapy or radiation treatment. She is willing to reconsider seeing the Breast surgeon/general surgeon for opinion, but refuses any chemo or radiation treatment. She states that her appetite is normal. she has been eating healthy foods and no junk foods Vitamin D deficiency, taking supplement regularly she states Hx of anemia, no bleeding or fatigue concerns. Tolerating her metformin- doesn't regularly check her blood glucose because she doesn't want to and she states that she feels well Denies any Blood in stools or severe joint pains or rashes. She is willing to have labs checked- these were ordered. Ms. Jimenez has past history of diabetes. Since our last visit she denies excessive thirst or increased frequency of urination, chest pain or dyspnea , new or unusual visual symptoms, and low sugar/hypoglycemic reactions. Depression- no. Follows a diabetic diet some of the time. She is compliant with medication(s) and is tolerating med(s) without any side effects. She reports checking her glucose on a once a day schedule with sugars in the fasting <150 range. Patient's last HgA1C was Hemoglobin A1C (%) Date Value 06/09/2023 6.9 06/04/2022 7.6 12/03/2020 7.1 04/18/2019 7.0 Hemoglobin A1C (POCT) (%) Date Value 06/06/2021 6.3 ) Last Ophthalmology exam was within the past 12 months Ms. iJmenez reports history of hyperlipidemia. Current therapy includes diet and exercise. Denies side effects of muscle weakness or achiness. Her most recent lipid panels are reviewed. Cholesterol, Total (mg/dL) Date Value 06/09/2023 163 12/03/2020 174 HDL Cholesterol (mg/dL) Date Value 06/09/2023 62 12/03/2020 50 LDL Cholesterol (mg/dL) Date Value 06/09/2023 90 12/03/2020 108 Triglyceride (mg/dL) Date Value 06/09/2023 54 12/03/2020 80 Ms. Jimenez indicates a history of hypertension and states that she is feeling well and denies any symptoms referable to elevated blood pressure. Specifically denies headache, chest pain, palpitations, dyspnea, and peripheral edema. Patient denies any side effects of her medication(s) and is compliant with their regimen. Last 3 Encounter BP Readings: Date: BP: 10/05/2023 146/84 06/09/2023 130/80 12/08/2022 130/80 She watches her diet for sodium, low fat and low cholesterol some of the time. She does not check BP's generally. Magui gets minimal exercise. PAST MEDICAL HISTORY 02/17/2004: Anemia, unspecified Comment: normocytic; iron, B12, folate, thyroid, hgb electrophereesis all WNL 02/20. Anemia did improve on supplemental iron. 02/16/2006: Degeneration of lumbar or lumbosacral intervertebral disc Comment: per xray 06/16/2005: Dermatophytosis of nail Comment: Lamisil tx per Dr. Stuart No date: Diabetic peripheral neuropathy (HCC) No date: Elevated sedimentation rate No date: Essential hypertension, benign 03/19/2004: Macular degeneration (senile) of retina, unspecified Comment: macular edema from diabetic retinopathy with best corrected vision 20/50. Sees retinal specialist Dr. Haroon Claros 02/2020: Malignant neoplasm of overlapping sites of right female breast (HCC) 11/16/2005: Nonspecific (abnormal) findings on radiological and other examination of skull and head Comment: MRI brain: left pituitary enlargement needing further evaluation 12/18/2003: Other chest pain Comment: UT ruled out. Adenosine stress test WNL; 2d echo [id number]% No date: Psoriasis No date: Pure hypercholesterolemia 02/16/1985: Type II or unspecified type diabetes mellitus with ophthalmic manifestations, not stated as uncontrolled(250.50) PAST SURGICAL HISTORY 01/26/2020: BREAST BIOPSY HX; Right No date: CHOLECYSTECTOMY approx. 1989: OVARIAN CYSTECTOMY No date: RPR RETINAL DTCHMNT DRG SUBRETINAL FLUID PC Comment: Laser repair retinal detach Social History Tobacco Use Smoking status: Former Current packs/day: 0.00 Average packs/day: 0.3 packs/day for 6.0 years (1.5 ttl pk-yrs) Types: Cigarettes Start date: 02/16/1970 Quit date: 02/17/1976 Years since quittin.6 Smokeless tobacco: Never Substance Use Topics Alcohol use: No Drug use: No FAMILY HISTORY Problem Relation Age of Onset Diabetes Mother Stroke Father Diabetes Brother Allergies: ALLERGIES Allergen Reactions Lovastatin Rash Vicodin [Hydrocodon* Intolerance vomiting, nausea, unsteady Current Meds: meloxicam (MOBIC) 15 mg tablet Take 1 tablet by mouth once daily. For pain as needed, Take with food. metFORMIN (GLUCOPHAGE) 1,000 mg tablet Take 1 tablet by mouth two times a day with meals. enalapril (VASOTEC) 20 mg tablet Take 1 tablet by mouth two times a day. blood sugar diagnostic (BLOOD GLUCOSE TEST) test strip Test blood sugar(s) 2 times daily. Dx: Type 2 DM - Uncontrolled E11.65 Insulin: No Lancets lancets Test blood sugar(s) 2 times daily. Dx: Type 2 DM - Uncontrolled E11.65 Insulin: No VITAMIN A ORAL Take 1 tablet by mouth as needed. CALCIUM-VITAMIN D3 ORAL Take 1 tablet by mouth once daily. acetaminophen (TYLENOL EXTRA STRENGTH) 500 mg tablet Take 500 mg by mouth as needed. omega-3/dha/epa/dpa/fish oil (OMEGA-3 2100 ORAL) Take 1 tablet by mouth twice daily. Lancets lancets Test blood sugar(s) 3 times daily. Dx: Type 2 DM - Controlled E11.9 Insulin: No blood sugar diagnostic (BLOOD GLUCOSE TEST) test strip Test blood sugar(s) 3 times daily. Dx: Type 2 DM - Controlled E11.9 Insulin: No nystatin (MYCOSTATIN) powder Apply 1 application to affected area twice daily as needed (itching between breasts). Blood Pressure Cuff - Home Use BLOOD PRESSURE CUFF FOR HOME USE. DX: I10 [id number]-Ca carb-vit K (ONE-A-DAY WOMENS FORMULA) 18 mg iron-400 mcg-500 mg tab Take 1 tablet by mouth once daily. cyanocobalamin (VITAMIN B-12) 1,000 mcg tab Take 1 tablet by mouth once daily. Aspirin 81 mg Tab Take 1 tablet by mouth once daily. Review of Systems: The remainder of the review of systems is negative. PE: 10/05/23 0933 BP: 146/84 Pulse: 80 Resp: 16 Temp: 36.1 C (97 F) TempSrc: Right Tympanic Weight: 60.3 kg (133 lb) Height: 164 cm (5' 4.57 ) Gen: A&O, NAD, non-toxic appearing, Pleasant, cooperative HEENT: NT/AC, PERRLA, EOMs intact b/l, nares clear and patent b/l, pharynx without erythema, exudate or lesions. Uvula midline, MMM. EACs without erythema or debris. TMs pearly huizar with intact landmarks b/l. Neck: supple, No cervical LAD, no thyromegaly, no carotid bruits CV: RRR, normal S1 and S2, no murmurs, no gallops, no rubs, Pulses 2+ and symmetric in UE and LE b/l Lungs: normal respiratory effort, CTA b/l, no wheezing or rhonchi or rales Abd: soft, NT, ND, +BS, no hepatosplenomegaly MS: gait is slowed but stable TTP thoracic and ribs right >left with midline pain as well as muscle tension present, Neuro: CN II-XII intact b/l, strength 5/5 b/l UE and LE, DTRs 2/4 UE and LE, sensation intact. Skin: warm, dry, intact, No rashes or lesions on exposed skin. Foot exam: Monofilament wnl on right and left feet. No edema, normal pulses ASSESSMENT/PLAN: 1. Medicare annual wellness visit, subsequent - ICD9: V70.0, ICD10: Z00.00 (primary diagnosis) - Counseled on healthy diet and regular exercise Emiliano Pelletier DO Assessment and plan: 1. Acute bilateral thoracic back pain - ICD9: 724.1, ICD10: M54.6 (primary diagnosis) Acute back pain, started 1 week ago, start on prn NSAID and tylenol and use of ice and heating pad. Labs as ordered, UA as ordered, xrays as ordered. Concerns that this may be coming from the right breast cancer that she hasn't wanted to treat, as d/w her today. She is willing to see the surgeon again for opinion, but has previously refused treatment with surgery, chemo or radiation. - XR THORACIC GENERAL 3V AP/LAT/SWIMMERS - URINALYSIS, WITH MICROSCOPIC - MELOXICAM 15 MG TABLET 2. Rib pain - ICD9: 786.50, ICD10: R07.81 Acute back pain, started 1 week ago, start on prn NSAID and tylenol and use of ice and heating pad. Labs as ordered, UA as ordered, xrays as ordered. Concerns that this may be coming from the right breast cancer that she hasn't wanted to treat, as d/w her today. She is willing to see the surgeon again for opinion, but has previously refused treatment with surgery, chemo or radiation. - XR RIBS BILATERAL/CHEST 4V - URINALYSIS, WITH MICROSCOPIC - MELOXICAM 15 MG TABLET 3. Controlled type 2 diabetes mellitus with complication, without long-term current use of insulin (HCC) - ICD9: 250.90, ICD10: E11.8 - Control undetermined, due for labs - Counseled on healthy diet and regular exercise - COMPREHENSIVE METABOLIC PANEL - COMPLETE BLOOD COUNT AND DIFFERENTIAL - HEMOGLOBIN A1C 4. Flank pain - ICD9: 789.09, ICD10: R10.9 Acute back pain, started 1 week ago, start on prn NSAID and tylenol and use of ice and heating pad. Labs as ordered, UA as ordered, xrays as ordered. Concerns that this may be coming from the right breast cancer that she hasn't wanted to treat, as d/w her today. She is willing to see the surgeon again for opinion, but has previously refused treatment with surgery, chemo or radiation. - URINALYSIS, WITH MICROSCOPIC - MELOXICAM 15 MG TABLET 5. Mass of right breast, unspecified quadrant - ICD9: 611.72, ICD10: N63.10 See above Acute back pain, started 1 week ago, start on prn NSAID and tylenol and use of ice and heating pad. Labs as ordered, UA as ordered, xrays as ordered. Concerns that this may be coming from the right breast cancer that she hasn't wanted to treat, as d/w her today. She is willing to see the surgeon again for opinion, but has previously refused treatment with surgery, chemo or radiation. - CONSULT TO GENERAL SURGERY 6. Malignant neoplasm of upper-outer quadrant of right breast in female, estrogen receptor negative (HCC) - ICD9: 174.4, V86.1, ICD10: C50.411, Z17.1 Acute back pain, started 1 week ago, start on prn NSAID and tylenol and use of ice and heating pad. Labs as ordered, UA as ordered, xrays as ordered. Concerns that this may be coming from the right breast cancer that she hasn't wanted to treat, as d/w her today. She is willing to see the surgeon again for opinion, but has previously refused treatment with surgery, chemo or radiation. 7. Vitamin D deficiency - ICD9: 268.9, ICD10: E55.9 Continue supplement 8. Vitamin B12 deficiency - ICD9: 266.2, ICD10: E53.8 Continue supplement 9. Essential hypertension, benign - ICD9: 401.1, ICD10: I10 - Controlled - Continue current medications - Recommend home blood pressure monitoring, to bring results to next visit - Encouraged sodium restriction, DASH or Mediterranean diet - Recommend regular aerobic exercise 10. Pure hypercholesterolemia - ICD9: 272.0, ICD10: E78.00 stable Emiliano Pelletier DO To ER if develops chest pain, shortness of breath, or severe worsening of symptoms. Discussed risks, benefits, alternatives, and potential side effects of medications. Patient expressed understanding and agreed with the plan. Emiliano Pelletier DO [address] [place] [address] documented in this encounter [facility] 06-26-2023 Telephone encounter Note Pt informed, verbalized understanding. Raissa Vazquez MA [facility] 05-10-2024 Miscellaneous Notes Pt informed, verbalized understanding. Raissa Vazquez MA The following approved medication requests have been transmitted electronically. Requested Prescriptions Signed Prescriptions Disp Refills ferrous sulfate (SLOW FE) 137 mg (45 mg iron) TbER 90 tablet 2 Sig: Take 137 mg by mouth once daily. Authorizing Provider: EMILIANO PELLETIER Ordering User: JARED CHEN APRN.CNP Magui is calling in. She states iron was sent to the wrong pharmacy. She is asking it be re-sent to [facility]. Pended location changed and [facility] removed from preferred list. documented in this encounter [facility] 06-26-2023 Telephone encounter Note The following approved medication requests have been transmitted electronically. Requested Prescriptions Signed Prescriptions Disp Refills ferrous sulfate (SLOW FE) 137 mg (45 mg iron) TbER 90 tablet 2 Sig: Take 137 mg by mouth once daily. Authorizing Provider: EMILIANO PELLETIER Ordering User: JARED CHEN APRN.COM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 [facility] Work Phone: 06-26-2023 Telephone encounter Note Magui is calling in. She states iron was sent to the wrong pharmacy. She is asking it be re-sent to [facility]. Pended location changed and [facility] removed from preferred list. [facility] Work Phone: 06-25-2023 Telephone encounter Note The following approved medication requests have been transmitted electronically. Requested Prescriptions Signed Prescriptions Disp Refills ferrous sulfate (SLOW FE) 137 mg (45 mg iron) TbER 90 tablet 2 Sig: Take 137 mg by mouth once daily. Authorizing Provider: KIRSTEN LATHAM APRN.COM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 [facility] 06-25-2023 Miscellaneous Notes The following approved medication requests have been transmitted electronically. Requested Prescriptions Signed Prescriptions Disp Refills ferrous sulfate (SLOW FE) 137 mg (45 mg iron) TbER 90 tablet 2 Sig: Take 137 mg by mouth once daily. Authorizing Provider: KIRSTEN LATHAM APRN.COM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 Pt informed, verbalized understanding. Please send script to [facility] in [place]. Raissa Vazquez MA Please inform patient that her labs show that her A1c is at 6.9% which is pretty good for her diabetes control. Keep up the good work! Her hemoglobin is low at 11.4 and iron levels are slightly low. She needs to be taking iron supplement such as slo fe with 45-67mg of iron in it once a day with a meal Emiliano Pelletier DO documented in this encounter [facility] 06-25-2023 Telephone encounter Note Pt informed, verbalized understanding. Please send script to [facility] in [place]. Raissa Vazquez MA [facility] 06-25-2023 Telephone encounter Note Please inform patient that her labs show that her A1c is at 6.9% which is pretty good for her diabetes control. Keep up the good work! Her hemoglobin is low at 11.4 and iron levels are slightly low. She needs to be taking iron supplement such as slo fe with 45-67mg of iron in it once a day with a meal Emiliano Pelletier DO [facility] 06-09-2023 Note HNO ID: [id number] Author: EMILIANO PELLETIER DO Service: ? Author Type: Physician Type: Progress Notes Filed: 06/09/2023 09:36 Note Text: Patient presents with: 6 Month Exam HPI: Magui Jimenez is a 77 year old female who presents to the office today for review of health conditions. Concerns today: Right breast lump, diagnosed with breast CA, was seen by breast surgeon, general surgeon and [facility] in the last 4-5 years. Was told need surgical excision and chemotherapy/radiation would be needed. She stated at that time that she has thought about these options and I don't want to do any of it. I won't claim that I have breast cancer. I understand there is a lump there but I really believe as a Islam that I am at peace with this decision. Denies any breast pain or skin changes or nipple discharge. Refuses to treat it and understands risks involved. She still feels this same way and doesn't want to undergo any procedures such as surgery for this cancer, chemotherapy or radiation treatment. She still denies any new symptoms or pain in the breast She states that her appetite is normal. She has lost 8-9 lbs in the last 1 year. She states that this is because she has been eating healthy foods and no junk foods. Vitamin D deficiency, taking supplement regularly she states Hx of anemia, no bleeding or fatigue concerns. Tolerating her metformin- doesn't regularly check her blood glucose because she doesn't want to and she states that she feels well Denies any Blood in stools or severe joint pains or rashes. She is willing to have labs checked- these were ordered. Ms. Jimenez has past history of diabetes. Since our last visit she denies excessive thirst or increased frequency of urination, chest pain or dyspnea , new or unusual visual symptoms, and low sugar/hypoglycemic reactions. Depression- no. Follows a diabetic diet some of the time. She is compliant with medication(s) and is tolerating med(s) without any side effects. She reports checking her glucose on a infrequent to not at all basis schedule. Patient's last HgA1C was Hemoglobin A1C (%) Date Value 06/04/2022 7.6 12/03/2020 7.1 04/18/2019 7.0 Hemoglobin A1C (POCT) (%) Date Value 06/06/2021 6.3 ) Ms. Jimenez reports history of hyperlipidemia. Current therapy includes diet and exercise. Denies side effects of muscle weakness or achiness. Her most recent lipid panels are reviewed. Cholesterol, Total (mg/dL) Date Value 06/04/2022 151 12/03/2020 174 HDL Cholesterol (mg/dL) Date Value 06/04/2022 46 12/03/2020 50 LDL Cholesterol (mg/dL) Date Value 06/04/2022 89 12/03/2020 108 Triglyceride (mg/dL) Date Value 06/04/2022 82 12/03/2020 80 Ms. Jimenez indicates a history of hypertension and states that she is feeling well and denies any symptoms referable to elevated blood pressure. Specifically denies headache, chest pain, palpitations, dyspnea, and peripheral edema. Patient denies any side effects of her medication(s) and is compliant with their regimen. Last 3 Encounter BP Readings: Date: BP: 06/09/2023 130/80 12/08/2022 130/80 06/06/2022 158/80 She watches her diet for sodium, low fat and low cholesterol some of the time. She does not check BP's generally. Magui gets minimal exercise. PAST MEDICAL HISTORY Diagnosis Date Anemia, unspecified 02/17/2004 normocytic; iron, B12, folate, thyroid, hgb electrophereesis all WNL 02/20. Anemia did improve on supplemental iron. Degeneration of lumbar or lumbosacral intervertebral disc 02/16/2006 per xray Dermatophytosis of nail 06/16/[address] Stuart Diabetic peripheral neuropathy (HCC) Elevated sedimentation rate Essential hypertension, benign Macular degeneration (senile) of retina, unspecified 03/19/2004 macular edema from diabetic retinopathy with best corrected vision 20/50. Sees retinal specialist Dr. Haroon Claros Malignant neoplasm of overlapping sites of right female breast (HCC) 02/2020 Nonspecific (abnormal) findings on radiological and other examination of skull and head 11/16/2005 MRI brain: left pituitary enlargement needing further evaluation Other chest pain 12/18/2003 UT ruled out. Adenosine stress test WNL; 2d echo [id number]% Psoriasis Pure hypercholesterolemia Type II or unspecified type diabetes mellitus with ophthalmic manifestations, not stated as uncontrolled(250.50) 02/16/1985 PAST SURGICAL HISTORY Procedure Laterality Date BREAST BIOPSY HX Right 01/26/2020 CHOLECYSTECTOMY OVARIAN CYSTECTOMY approx. 1989 RPR RETINAL DTCHMNT DRG SUBRETINAL FLUID PC Laser repair retinal detach Social History Tobacco Use Smoking status: Former Packs/day: 0.25 Years: 6.00 Additional pack years: 0.00 Total pack years: 1.50 Types: Cigarettes Quit date: 02/17/1976 Years since quittin.3 Smokeless tobacco: Never Substance Use Topics Alcohol use: No Drug use: No FAMILY HIS (more content not included)... [facility] 06-09-2023 History of Present illness Narrative Patient presents with: 6 Month Exam HPI: Magui Jimenez is a 77 year old female who presents to the office today for review of health conditions. Concerns today: Right breast lump, diagnosed with breast CA, was seen by breast surgeon, general surgeon and [facility] in the last 4-5 years. Was told need surgical excision and chemotherapy/radiation would be needed. She stated at that time that she has thought about these options and I don't want to do any of it. I won't claim that I have breast cancer. I understand there is a lump there but I really believe as a Islam that I am at peace with this decision. Denies any breast pain or skin changes or nipple discharge. Refuses to treat it and understands risks involved. She still feels this same way and doesn't want to undergo any procedures such as surgery for this cancer, chemotherapy or radiation treatment. She still denies any new symptoms or pain in the breast She states that her appetite is normal. She has lost 8-9 lbs in the last 1 year. She states that this is because she has been eating healthy foods and no junk foods. Vitamin D deficiency, taking supplement regularly she states Hx of anemia, no bleeding or fatigue concerns. Tolerating her metformin- doesn't regularly check her blood glucose because she doesn't want to and she states that she feels well Denies any Blood in stools or severe joint pains or rashes. She is willing to have labs checked- these were ordered. Ms. Jimenez has past history of diabetes. Since our last visit she denies excessive thirst or increased frequency of urination, chest pain or dyspnea , new or unusual visual symptoms, and low sugar/hypoglycemic reactions. Depression- no. Follows a diabetic diet some of the time. She is compliant with medication(s) and is tolerating med(s) without any side effects. She reports checking her glucose on a infrequent to not at all basis schedule. Patient's last HgA1C was Hemoglobin A1C (%) Date Value 06/04/2022 7.6 12/03/2020 7.1 04/18/2019 7.0 Hemoglobin A1C (POCT) (%) Date Value 06/06/2021 6.3 ) Ms. Jimenez reports history of hyperlipidemia. Current therapy includes diet and exercise. Denies side effects of muscle weakness or achiness. Her most recent lipid panels are reviewed. Cholesterol, Total (mg/dL) Date Value 06/04/2022 151 12/03/2020 174 HDL Cholesterol (mg/dL) Date Value 06/04/2022 46 12/03/2020 50 LDL Cholesterol (mg/dL) Date Value 06/04/2022 89 12/03/2020 108 Triglyceride (mg/dL) Date Value 06/04/2022 82 12/03/2020 80 Ms. Jimenez indicates a history of hypertension and states that she is feeling well and denies any symptoms referable to elevated blood pressure. Specifically denies headache, chest pain, palpitations, dyspnea, and peripheral edema. Patient denies any side effects of her medication(s) and is compliant with their regimen. Last 3 Encounter BP Readings: Date: BP: 06/09/2023 130/80 12/08/2022 130/80 06/06/2022 158/80 She watches her diet for sodium, low fat and low cholesterol some of the time. She does not check BP's generally. Magui gets minimal exercise. PAST MEDICAL HISTORY Diagnosis Date Anemia, unspecified 02/17/2004 normocytic; iron, B12, folate, thyroid, hgb electrophereesis all WNL 02/20. Anemia did improve on supplemental iron. Degeneration of lumbar or lumbosacral intervertebral disc 02/16/2006 per xray Dermatophytosis of nail 06/16/[address] Stuart Diabetic peripheral neuropathy (HCC) Elevated sedimentation rate Essential hypertension, benign Macular degeneration (senile) of retina, unspecified 03/19/2004 macular edema from diabetic retinopathy with best corrected vision 20/50. Sees retinal specialist Dr. Haroon Claros Malignant neoplasm of overlapping sites of right female breast (HCC) 02/2020 Nonspecific (abnormal) findings on radiological and other examination of skull and head 11/16/2005 MRI brain: left pituitary enlargement needing further evaluation Other chest pain 12/18/2003 UT ruled out. Adenosine stress test WNL; 2d echo [id number]% Psoriasis Pure hypercholesterolemia Type II or unspecified type diabetes mellitus with ophthalmic manifestations, not stated as uncontrolled(250.50) 02/16/1985 PAST SURGICAL HISTORY Procedure Laterality Date BREAST BIOPSY HX Right 01/26/2020 CHOLECYSTECTOMY OVARIAN CYSTECTOMY approx. 1989 RPR RETINAL DTCHMNT DRG SUBRETINAL FLUID PC Laser repair retinal detach Social History Tobacco Use Smoking status: Former Packs/day: 0.25 Years: 6.00 Additional pack years: 0.00 Total pack years: 1.50 Types: Cigarettes Quit date: 02/17/1976 Years since quittin.3 Smokeless tobacco: Never Substance Use Topics Alcohol use: No Drug use: No FAMILY HISTORY Problem Relation Age of Onset Diabetes Mother Stroke Father Diabetes Brother Allergies: ALLERGIES Allergen Reactions Lovastatin Rash Nylon Stockings [Ot* Rash Vicodin [Hydrocodon* Intolerance vomiting, nausea, unsteady Current Meds: metFORMIN (GLUCOPHAGE) 1,000 mg tablet Take 1 tablet by mouth two times a day with meals. enalapril (VASOTEC) 20 mg tablet Take 1 tablet by mouth two times a day. CALCIUM-VITAMIN D3 ORAL Take 1 tablet by mouth once daily. acetaminophen (TYLENOL EXTRA STRENGTH) 500 mg tablet Take 500 mg by mouth as needed. omega-3/dha/epa/dpa/fish oil (OMEGA-3 2100 ORAL) Take 1 tablet by mouth twice daily. mp-jz-quic-FA-Ca carb-vit K (ONE-A-DAY WOMENS FORMULA) 18 mg iron-400 mcg-500 mg tab Take 1 tablet by mouth once daily. blood sugar diagnostic (BLOOD GLUCOSE TEST) test strip Test blood sugar(s) 2 times daily. Dx: Type 2 DM - Uncontrolled E11.65 Insulin: No Lancets lancets Test blood sugar(s) 2 times daily. Dx: Type 2 DM - Uncontrolled E11.65 Insulin: No VITAMIN A ORAL Take 1 tablet by mouth as needed. Lancets lancets Test blood sugar(s) 3 times daily. Dx: Type 2 DM - Controlled E11.9 Insulin: No blood sugar diagnostic (BLOOD GLUCOSE TEST) test strip Test blood sugar(s) 3 times daily. Dx: Type 2 DM - Controlled E11.9 Insulin: No nystatin (MYCOSTATIN) powder Apply 1 application to affected area twice daily as needed (itching between breasts). Blood Pressure Cuff - Home Use BLOOD PRESSURE CUFF FOR HOME USE. DX: I10 cyanocobalamin (VITAMIN B-12) 1,000 mcg tab Take 1 tablet by mouth once daily. Aspirin 81 mg Tab Take 1 tablet by mouth once daily. Review of Systems: The remainder of the review of systems is negative. PE: 06/09/23 0840 BP: 130/80 Pulse: 80 Resp: 20 Temp: 36.2 C (97.2 F) TempSrc: Left Tympanic Weight: 59.4 kg (131 lb) Gen: A&O, NAD, non-toxic appearing, Pleasant, cooperative HEENT: NT/AC, PERRLA, EOMs intact b/l, nares clear and patent b/l, pharynx without erythema, exudate or lesions. Uvula midline. EACs without erythema or debris. TMs pearly huizar with intact landmarks b/l. Neck: supple, No cervical LAD, no thyromegaly, no carotid bruits CV: RRR, normal S1 and S2, no murmurs, no gallops, no rubs, Pulses 2+ and symmetric in UE and LE b/l Lungs: normal respiratory effort, CTA b/l, no wheezing or rhonchi or rales Right breast mass present size of baseball approximately with small area of likely LAD or tumor superior to this mass in inferior axilla on right side Abd: soft, NT, ND, +BS, no hepatosplenomegaly MS: FROM all 4 extremities Neuro: CN II-XII intact b/l, strength 5/5 b/l UE and LE, DTRs 2/4 UE and LE, sensation intact. Skin: warm, dry, intact, No rashes or lesions on exposed skin. Foot exam: Monofilament wnl on right and left feet. Gait is stable ASSESSMENT/PLAN: 1. Type 2 diabetes mellitus with diabetic neuropathy, without long-term current use of insulin (HCC) - ICD9: 250.60, 357.2, ICD10: E11.40 (primary diagnosis) - Control undetermined, due for labs - Continue current medications - Counseled on healthy diet and regular exercise - she isn't willing to check her blood glucose. 2. Weight loss, unintentional - ICD9: 783.21, ICD10: R63.4 - labs as ordered Likely related to the breast cancer which she refuses to treat- she isn't willing to start on chemo or breast radiation or have surgical excision./ She states that she is eating healthy diet - PROTEIN ELECTROPHORESIS SERUM W/INTERP 3. Pure hypercholesterolemia - ICD9: 272.0, ICD10: E78.00 Continue diet control She isn't interested in statin therapy - LIPID PANEL BASIC 4. Vitamin D deficiency - ICD9: 268.9, ICD10: E55.9 Continue supplement - VITAMIN D 25 HYDROXY 5. Vitamin B12 deficiency - ICD9: 266.2, ICD10: E53.8 Continue supplement - VITAMIN B12 6. Essential hypertension, benign - ICD9: 401.1, ICD10: I10 - Controlled - Continue current medications - Recommend home blood pressure monitoring, to bring results to next visit - Encouraged sodium restriction, DASH or Mediterranean diet - Recommend regular aerobic exercise 7. Controlled type 2 diabetes mellitus with complication, without long-term current use of insulin (HCC) - ICD9: 250.90, ICD10: E11.8 - Control undetermined, due for labs - Blood glucose monitoring on a once daily schedule - Counseled on healthy diet and regular exercise - HEMOGLOBIN A1C - THYROID STIMULATING HORMONE - T4 FREE/FREE THYROXINE - COMPREHENSIVE METABOLIC PANEL 8. Anemia, unspecified type - ICD9: 285.9, ICD10: D64.9 - labs as ordered Likely related to the breast cancer which she refuses to treat- she isn't willing to start on chemo or breast radiation or have surgical excision./ She states that she is eating healthy diet - PROTEIN ELECTROPHORESIS SERUM W/INTERP - COMPLETE BLOOD COUNT AND DIFFERENTIAL - IRON AND TIBC 9. 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 10. Malignant neoplasm of upper-outer quadrant of right breast in female, estrogen receptor negative (HCC) - ICD9: 174.4, V86.1, ICD10: C50.411, Z17.1 - labs as ordered Likely related to the breast cancer which she refuses to treat- she isn't willing to start on chemo or breast radiation or have surgical excision./ She states that she is eating healthy diet Emiliano Pelletier DO To ER if develops chest pain, shortness of breath, or severe worsening of symptoms. Discussed risks, benefits, alternatives, and potential side effects of medications. Patient expressed understanding and agreed with the plan. Emiliano Pelletier DO [address] [place] [address] documented in this encounter [facility] 05-05-2023 Note HNO ID: [id number] Author: ?, ?, ? Service: ? Author Type: ? Type: Progress Notes Filed: 05/05/2023 13:19 Note Text: POPULATION HEALTH NAVIGATION OUTREACH Action/FYI Patient contacted to schedule Annual Medicare Wellness Visit. Spoke to patient and appointment scheduled. Reason for Outreach Care Gap/HCC or Scheduling Wellness Visits Care Gaps due: Medicare Annual Wellness Visit Patient Contacted: Spoke to patient/parent/or legal guardian Patient identified by name and : Yes Care Gap/HCC/Scheduling Wellness actions taken: Patient scheduled/pended labs: Medicare Annual Wellness Visit Navigation Signature: Danielle Thurman May 05, 2023 1:18 PM [facility] 05-05-2023 History of Present illness Narrative POPULATION HEALTH NAVIGATION OUTREACH Action/FYI Patient contacted to schedule Annual Medicare Wellness Visit. Spoke to patient and appointment scheduled. Reason for Outreach Care Gap/HCC or Scheduling Wellness Visits Care Gaps due: Medicare Annual Wellness Visit Patient Contacted: Spoke to patient/parent/or legal guardian Patient identified by name and : Yes Care Gap/HCC/Scheduling Wellness actions taken: Patient scheduled/pended labs: Medicare Annual Wellness Visit Navigation Signature: Danielle Thurman May 05, 2023 1:18 PM documented in this encounter [facility] 05-05-2023 Note Patient Outreach (NE TNAV) MAGUI JIMENEZ ([id number]) 1945 F Date Time Provider Department 05/05/23 DANIELLE THURMAN NETESTELAV During your visit today, we recorded the following information about you: Danielle Thurman 05/05/2023 1:19 PM Signed POPULATION HEALTH NAVIGATION OUTREACH Action/FYI Patient contacted to schedule Annual Medicare Wellness Visit. Spoke to patient and appointment scheduled. Reason for Outreach Care Gap/HCC or Scheduling Wellness Visits Care Gaps due: Medicare Annual Wellness Visit Patient Contacted: Spoke to patient/parent/or legal guardian Patient identified by name and : Yes Care Gap/HCC/Scheduling Wellness actions taken: Patient scheduled/pended labs: Medicare Annual Wellness Visit Navigation Signature: Danielle Thurman May 05, 2023 1:18 PM Allergies As of Date: 05/05/2023 Noted Allergy Reaction LOVASTATIN 12/21/2007 2 - Rash nylon stockings [Other] 05/21/2006 2 - Rash VICODIN (HYDROCODONE-ACETAMINOPHE*11/21/19 06 5 - Intolerance Comments: vomiting, nausea, unsteady Date Reviewed: 06/06/2022 Reviewed by: Janet Montoya LPN - Fully Assessed Reason for Visit: Population Health Navigation Outreach [3910] Cmt: Ramirez Annual Wellness Visit Prescriptions as of 05/05/2023 - metFORMIN (GLUCOPHAGE) 1,000 mg tablet Take 1 tablet by mouth two times a day with meals. - enalapril (VASOTEC) 20 mg tablet Take 1 tablet by mouth two times a day. - blood sugar diagnostic (BLOOD GLUCOSE TEST) test strip Test blood sugar(s) 2 times daily. Dx: Type 2 DM - Uncontrolled E11.65 Insulin: No - Lancets lancets Test blood sugar(s) 2 times daily. Dx: Type 2 DM - Uncontrolled E11.65 Insulin: No - VITAMIN A ORAL Take 1 tablet by mouth as needed. - CALCIUM-VITAMIN D3 ORAL Take 1 tablet by mouth once daily. - acetaminophen (TYLENOL EXTRA STRENGTH) 500 mg tablet Take 500 mg by mouth as needed. - omega-3/dha/epa/dpa/fish oil (OMEGA-3 2100 ORAL) Take 1 tablet by mouth twice daily. - Lancets lancets Test blood sugar(s) 3 times daily. Dx: Type 2 DM - Controlled E11.9 Insulin: No - blood sugar diagnostic (BLOOD GLUCOSE TEST) test strip Test blood sugar(s) 3 times daily. Dx: Type 2 DM - Controlled E11.9 Insulin: No - nystatin (MYCOSTATIN) powder Apply 1 application to affected area twice daily as needed (itching between breasts). - Blood Pressure Cuff - Home Use BLOOD PRESSURE CUFF FOR HOME USE. DX: I10 - vp-fo-qsxi-FA-Ca carb-vit K (ONE-A-DAY WOMENS FORMULA) 18 mg iron-400 mcg-500 mg tab Take 1 tablet by mouth once daily. - cyanocobalamin (VITAMIN B-12) 1,000 mcg tab Take 1 tablet by mouth once daily. - Aspirin 81 mg Tab Take 1 tablet by mouth once daily. Meds Comments as of 01/23/2020: Fish Oil bid daily and Vitamin C prn. Problem List As Of Date 05/05/2023 Noted Resolved ANEMIA NOS [D64.9] Essential hypertension, benign [I10] Type 2 diabetes mellitus with diabetic neuropat*03/21/2005 Unspecified hereditary and idiopathic periphera*05/27/2005 06/03/2021 Dermatophytosis of nail [B35.1] 05/27/2005 08/24/2017 Other specified disorder of skin [L98.8] 03/11/2006 08/24/2017 Pain in limb [M79.609] 05/20/2006 08/24/2017 Pure hypercholesterolemia [E78.00] 05/09/2015 08/24/2017 Choledocholithiasis [K80.50] 05/09/2016 08/24/2017 History of cholecystectomy [Z90.49] 05/16/2016 08/24/2017 Gallstone (impacted) [K80.20] 05/16/2016 08/24/2017 Elevated liver enzymes [R74.8] 05/16/2016 Intertrigo [L30.4] 09/29/2018 Pure hypercholesterolemia [E78.00] 09/29/2018 Malignant neoplasm of upper-outer quadrant of r*03/06/2020 Vitamin D deficiency [E55.9] 12/04/2020 Controlled type 2 diabetes mellitus with compli*06/03/2021 Vitamin B12 deficiency [E53.8] 06/06/2022 Uncontrolled type 2 diabetes mellitus with hype*06/06/2022 Anemia [D64.9] 12/10/2022 Encounter Status:Closed by DANIELLE THURMAN on 05/05/23 [facility] 01-15-2023 Note HNO ID: [id number] Author: Deb Escudero MA Service: ? Author Type: Marble Cleaner Type: Progress Notes Filed: 01/15/2023 11:03 AM Note Text: POPULATION HEALTH NAVIGATION OUTREACH Action/ Left message for return call. No my chart. Diabetic retinal exam Hgba1c needs lab appointment along with other fasting existing labs ordered Patient Identified by Name and : NO Outreach Outcome/Action Unable to reach patient: Left message Did you use a PCP flex slot to schedule this appointment? N/A Reason for Outreach Care Gap or Scheduling/Wellness visits Payer: Payor: RAMIREZ [employer] AND [employer] / Plan: RAMIREZ [employer] HMO / Product Type: HMO / Care Gap Reviewed:: Diabetic Eye Exam HBA1C Reminder: Reminder note to check Health Maintenance for items below Health Maintenance items due: Pneumococcal Vaccine: 65+(1 - PCV) Never done Shingrix Vaccine(1 of 2) Never done Hepatitis B Vaccine(1 of 3 - Risk 3-dose series) Never done RSV Vaccine(1 - 1-dose 60+ series) Never done Bone Density Screening Never done Dilated Retinal Exam due on 05/25/2019 HbA1C due on 12/04/2022 BP Controlled (<130/80) due on 12/06/2022 Navigation Signature: eDb Escudero MA January 15, 2023 10:58 AM [facility] 01-15-2023 History of Present illness Narrative POPULATION HEALTH NAVIGATION OUTREACH Action/FYI Left message for return call. No my chart. Diabetic retinal exam Hgba1c needs lab appointment along with other fasting existing labs ordered Patient Identified by Name and : NO Outreach Outcome/Action Unable to reach patient: Left message Did you use a PCP flex slot to schedule this appointment? N/A Reason for Outreach Care Gap or Scheduling/Wellness visits Payer: Payor: [employer] / Plan: [employer] HMO / Product Type: HMO / Care Gap Reviewed:: Diabetic Eye Exam HBA1C Reminder: Reminder note to check Health Maintenance for items below Health Maintenance items due: Pneumococcal Vaccine: 65+(1 - PCV) Never done Shingrix Vaccine(1 of 2) Never done Hepatitis B Vaccine(1 of 3 - Risk 3-dose series) Never done RSV Vaccine(1 - 1-dose 60+ series) Never done Bone Density Screening Never done Dilated Retinal Exam due on 05/25/2019 HbA1C due on 12/04/2022 BP Controlled (<130/80) due on 12/06/2022 Navigation Signature: Deb Escudero MA January 15, 2023 10:58 AM documented in this encounter [facility] 01-15-2023 Note Patient Outreach (NE TNAV) MAGUI JIMENEZ ([id number]) 1945 F Date Time Provider Department 01/15/23 DEB ESCUDERO During your visit today, we recorded the following information about you: Deb Escudero MA 01/15/2023 11:03 AM Signed POPULATION HEALTH NAVIGATION OUTREACH Action/FYI Left message for return call. No my chart. Diabetic retinal exam Hgba1c needs lab appointment along with other fasting existing labs ordered Patient Identified by Name and : NO Outreach Outcome/Action Unable to reach patient: Left message Did you use a PCP flex slot to schedule this appointment? N/A Reason for Outreach Care Gap or Scheduling/Wellness visits Payer: Payor: RAMIREZ [employer] AND [employer] / Plan: RAMIREZ [employer] HMO / Product Type: HMO / Care Gap Reviewed:: Diabetic Eye Exam HBA1C Reminder: Reminder note to check Health Maintenance for items below Health Maintenance items due: Pneumococcal Vaccine: 65+(1 - PCV) Never done Shingrix Vaccine(1 of 2) Never done Hepatitis B Vaccine(1 of 3 - Risk 3-dose series) Never done RSV Vaccine(1 - 1-dose 60+ series) Never done Bone Density Screening Never done Dilated Retinal Exam due on 05/25/2019 HbA1C due on 12/04/2022 BP Controlled (<130/80) due on 12/06/2022 Navigation Signature: Deb Escudero MA January 15, 2023 10:58 AM Allergies As of Date: 01/15/2023 Noted Allergy Reaction LOVASTATIN 12/21/2007 2 - Rash nylon stockings [Other] 05/21/2006 2 - Rash VICODIN (HYDROCODONE-ACETAMINOPHE*11/21/19 06 5 - Intolerance Comments: vomiting, nausea, unsteady Date Reviewed: 06/06/2022 Reviewed by: Janet Montoya LPN - Fully Assessed Reason for Visit: Population Health Navigation Outreach [3910] Cmt: Navigator Ramirez care gap outreach Prescriptions as of 01/15/2023 - metFORMIN (GLUCOPHAGE) 1,000 mg tablet Take 1 tablet by mouth two times a day with meals. - enalapril (VASOTEC) 20 mg tablet Take 1 tablet by mouth two times a day. - blood sugar diagnostic (BLOOD GLUCOSE TEST) test strip Test blood sugar(s) 2 times daily. Dx: Type 2 DM - Uncontrolled E11.65 Insulin: No - Lancets lancets Test blood sugar(s) 2 times daily. Dx: Type 2 DM - Uncontrolled E11.65 Insulin: No - VITAMIN A ORAL Take 1 tablet by mouth as needed. - CALCIUM-VITAMIN D3 ORAL Take 1 tablet by mouth once daily. - acetaminophen (TYLENOL EXTRA STRENGTH) 500 mg tablet Take 500 mg by mouth as needed. - omega-3/dha/epa/dpa/fish oil (OMEGA-3 2100 ORAL) Take 1 tablet by mouth twice daily. - Lancets lancets Test blood sugar(s) 3 times daily. Dx: Type 2 DM - Controlled E11.9 Insulin: No - blood sugar diagnostic (BLOOD GLUCOSE TEST) test strip Test blood sugar(s) 3 times daily. Dx: Type 2 DM - Controlled E11.9 Insulin: No - nystatin (MYCOSTATIN) powder Apply 1 application to affected area twice daily as needed (itching between breasts). - Blood Pressure Cuff - Home Use BLOOD PRESSURE CUFF FOR HOME USE. DX: I10 - lf-ki-fdyc-FA-Ca carb-vit K (ONE-A-DAY WOMENS FORMULA) 18 mg iron-400 mcg-500 mg tab Take 1 tablet by mouth once daily. - cyanocobalamin (VITAMIN B-12) 1,000 mcg tab Take 1 tablet by mouth once daily. - Aspirin 81 mg Tab Take 1 tablet by mouth once daily. Meds Comments as of 01/23/2020: Fish Oil bid daily and Vitamin C prn. Problem List As Of Date 01/15/2023 Noted Resolved ANEMIA NOS [D64.9] Essential hypertension, benign [I10] Type 2 diabetes mellitus with diabetic neuropat*03/21/2005 Unspecified hereditary and idiopathic periphera*05/27/2005 06/03/2021 Dermatophytosis of nail [B35.1] 05/27/2005 08/24/2017 Other specified disorder of skin [L98.8] 03/11/2006 08/24/2017 Pain in limb [M79.609] 05/20/2006 08/24/2017 Pure hypercholesterolemia [E78.00] 05/09/2015 08/24/2017 Choledocholithiasis [K80.50] 05/09/2016 08/24/2017 History of cholecystectomy [Z90.49] 05/16/2016 08/24/2017 Gallstone (impacted) [K80.20] 05/16/2016 08/24/2017 Elevated liver enzymes [R74.8] 05/16/2016 Intertrigo [L30.4] 09/29/2018 Pure hypercholesterolemia [E78.00] 09/29/2018 Malignant neoplasm of upper-outer quadrant of r*03/06/2020 Vitamin D deficiency [E55.9] 12/04/2020 Controlled type 2 diabetes mellitus with compli*06/03/2021 Vitamin B12 deficiency [E53.8] 06/06/2022 Uncontrolled type 2 diabetes mellitus with hype*06/06/2022 Anemia [D64.9] 12/10/2022 Encounter Status:Closed by DEB ESCUDERO on 01/15/23 [facility] 11-27-2022 Miscellaneous Notes Spoke with pt and information listed below given. Pt verbalizes understanding. Antonietta Bradley LPN Advise patient Calcium and Vit D are over the counter and insurance does not cover them. The following approved medication requests have been transmitted electronically. Requested Prescriptions Signed Prescriptions Disp Refills metFORMIN (GLUCOPHAGE) 1,000 mg tablet 180 tablet 0 Sig: Take 1 tablet by mouth two times a day with meals. Authorizing Provider: KWAKU MESSINA enalapril (VASOTEC) 20 mg tablet 180 tablet 0 Sig: Take 1 tablet by mouth two times a day. Authorizing Provider: KWAKU MESSINA MD Patient has been identified by name and date of : Yes Last office visit in this department: 06/06/2022 RX INSTRUCTIONS: Patient asking for Vitamin D with calcium please advise. Patient aware RX will be sent to pharmacy. No need to notify patient. Patient phones requesting refills as follows: Requested Prescriptions Pending Prescriptions Disp Refills metFORMIN (GLUCOPHAGE) 1,000 mg tablet 180 tablet 3 Sig: Take 1 tablet by mouth two times a day with meals. enalapril (VASOTEC) 20 mg tablet 180 tablet 3 Sig: Take 1 tablet by mouth two times a day. Please review and advise. Emma Harrell documented in this encounter [facility] 10-09-2022 History of Present illness Narrative POPULATION HEALTH NAVIGATION OUTREACH Action/FYI Left message for return call. No my chart. Diabetic retinal exam Hgba1c lab ordered expected date not until 12/06/22 Patient has appointment for follow up on 12/08/22 Patient Identified by Name and : NO Outreach Outcome/Action Unable to reach patient: Left message Did you use a PCP flex slot to schedule this appointment? N/A Reason for Outreach Care Gap or Scheduling/Wellness visits Payer: Payor: [employer] AND [employer] / Plan: [employer] HMO / Product Type: HMO / Care Gap Reviewed:: Diabetic Eye Exam Reminder: Reminder note to check Health Maintenance for items below Health Maintenance items due: PNEUMOCOCCAL: 65+(1 - PCV) Never done DTAP,TDAP,TD(1 - Tdap) Never done SHINGRIX VACCINE(1 of 2) Never done BONE DENSITY Never done DILATED RETINAL EXAM due on 05/25/2019 Navigation Signature: Deb Escudero MA October 09, 2022 8:18 AM documented in this encounter [facility] 08-20-2022 Miscellaneous Notes Hopefully this is correct this time, agree with below that she requested ROSA the last time and that is why I sent it that way. The following approved medication requests have been transmitted electronically. Requested Prescriptions Signed Prescriptions Disp Refills enalapril (VASOTEC) 20 mg tablet 180 tablet 3 Sig: Take 1 tablet by mouth twice daily. Authorizing Provider: EMILIANO PELLETIER Ordering User: JARED CHEN APRN.CNP Patient's pharmacy calling to say patient is declining script for Vasotec because is requesting generic Enalapril. Per TE 08/15, patient spoke with PSS and requested Enalapril ROSA (which is Vasotec) Spoke with patient today and she is requesting generic Enalapril which she has been taking all along. Pended per request. Patient has been identified by name and date of : Yes, Provider Date Time Patient phones for refill(s): Requested Prescriptions Pending Prescriptions Disp Refills enalapril (VASOTEC) 20 mg tablet 180 tablet 3 Sig: Take 1 tablet by mouth twice daily. Date of last office visit with pcp: 06/06/22 Date of last office visit in primary care: Last 2 Encounter Wt Readings: Date: Wt: 06/06/2022 63.5 kg (140 lb) 12/06/2021 63.5 kg (140 lb) Previous labs/tests for medication: Blood Pressure: BUN (mg/dL) Date Value 06/04/2022 15 12/03/2020 13 Sodium (mmol/L) Date Value 06/04/2022 138 12/03/2020 138 Last 1 Encounter BP Readings: Date: BP: 06/06/2022 158/80 Please advise. Thank you. Brittney Ahuja RN documented in this encounter [facility] 08-15-2022 Miscellaneous Notes The following approved medication requests have been transmitted electronically. Requested Prescriptions Signed Prescriptions Disp Refills enalapril (VASOTEC) 20 mg tablet 180 tablet 3 Sig: Take 1 tablet by mouth twice daily. Authorizing Provider: EMILIANO PELLETIER Ordering User: JARED CHEN APRN.CNP Magui Jimenez is calling Emiliano Pelletier DO today with concern regarding Medication Problem. Patient's pharmacy wants to send her Vasotec, but she does not want it because she has been taking the enalapril with no problem and doesn't want to switch now. She would prefer to have enalpril ROSA Patient has been identified by name and birthdate. Duration of symptoms: N/A Person calling: self Call patient at: at home [phone] (home) Was an appointment scheduled: Closing statement: Livier Harrell documented in this encounter [facility] 08-15-2022 Miscellaneous Notes Magui Jimenez is calling Emiliano Pelletier DO today with concern regarding Ankle Injury. Patient reports that she injured her left ankle stepping from carpet to a bare floor on 08-03-22. To assist in her walking she has put 3 tight socks and a Nike shoe on that foot to help stabilize it. She also soaks her feet and has propped her left foot up on a few pillows to help with swelling. She continues to do this as it still needs the support. Patient has been identified by name and birthdate. Duration of symptoms: 2 weeks Person calling: self Call patient at: at home [phone] (home) Was an appointment scheduled: Closing statement: Livier Harrell documented in this encounter [facility] 06-25-2022 History of Present illness Narrative POPULATION HEALTH NAVIGATION OUTREACH Action/FYI P/C to patient to address open care gaps, no answer. Left message for patient to return call. Patient Identified by Name and : NO Outreach Outcome/Action Unable to reach patient: Left message Did you use a PCP flex slot to schedule this appointment? N/A Reason for Outreach Care Gap or Scheduling/Wellness visits Payer: Payor: [employer] [facility] / Plan: [employer] H[employer] / Product Type: HMO / Care Gap Reviewed:: Diabetic Eye Exam Reminder: Reminder note to check Health Maintenance for items below Health Maintenance items due: PNEUMOCOCCAL: 65+(1 - PCV) Never done DTAP,TDAP,TD(1 - Tdap) Never done SHINGRIX VACCINE(1 of 2) Never done BONE DENSITY Never done DILATED RETINAL EXAM due on 05/25/2019 Navigation Signature: Suzanne García MA June 25, 2022 5:01 PM documented in this encounter [facility] 06-06-2022 History of Present illness Narrative Patient presents with: 6 Month Exam HPI: Magui Jimenez is a 76 year old female who presents to the office today for review of health conditions. Concerns today: Right breast lump, diagnosed with breast CA, was seen by breast surgeon, general surgeon and [facility] in the last 3 years. Was told need surgical excision and chemotherapy/radiation likely. She stated at that time that she has thought about these options and I don't want to do any of it. I won't claim that I have breast cancer. I understand there is a lump there but I really believe as a Islam that I am at peace with this decision. Denies any breast pain or skin changes or nipple discharge. Refuses to treat it and understands risks involved. She still feels this same way Vitamin D deficiency, taking supplements Hx of anemia, no bleeding or fatigue concerns. Tolerating her metformin Denies any Blood in stools or severe joint pains or rashes. Ms. Jimenez has past history of diabetes. Since our last visit she denies excessive thirst or increased frequency of urination, chest pain or dyspnea , new or unusual visual symptoms, and low sugar/hypoglycemic reactions. Depression- no. Follows a diabetic diet most of the time. She is compliant with medication(s) and is tolerating med(s) without any side effects. She reports checking her glucose on a infrequent to not at all basis schedule. Patient's last HgA1C was Hemoglobin A1C (%) Date Value 06/04/2022 7.6 12/03/2020 7.1 04/18/2019 7.0 Hemoglobin A1C (POCT) (%) Date Value 06/06/2021 6.3 ) Last Ophthalmology exam was within the past 12 months Ms. Jimenez reports history of hyperlipidemia. Current therapy includes diet and exercise. Denies side effects of muscle weakness or achiness. Her most recent lipid panels are reviewed. Cholesterol, Total (mg/dL) Date Value 06/04/2022 151 12/03/2020 174 HDL Cholesterol (mg/dL) Date Value 06/04/2022 46 12/03/2020 50 LDL Cholesterol (mg/dL) Date Value 06/04/2022 89 12/03/2020 108 Triglyceride (mg/dL) Date Value 06/04/2022 82 12/03/2020 80 Ms. Jimenez indicates a history of hypertension and states that she is feeling well and denies any symptoms referable to elevated blood pressure. Specifically denies headache, chest pain, palpitations, dyspnea, and peripheral edema. Patient denies any side effects of her medication(s) and is compliant with their regimen. Last 3 Encounter BP Readings: Date: BP: 06/06/2022 158/80 12/06/2021 120/80 06/06/2021 142/82 She watches her diet for sodium, low fat and low cholesterol some of the time. She does not check BP's generally. Magui gets minimal exercise. PAST MEDICAL HISTORY Diagnosis Date Anemia, unspecified 02/17/2004 normocytic; iron, B12, folate, thyroid, hgb electrophereesis all WNL 02/20. Anemia did improve on supplemental iron. Degeneration of lumbar or lumbosacral intervertebral disc 02/16/2006 per xray Dermatophytosis of nail 06/16/[address] Stuart Diabetic peripheral neuropathy (HCC) Elevated sedimentation rate Essential hypertension, benign Macular degeneration (senile) of retina, unspecified 03/19/2004 macular edema from diabetic retinopathy with best corrected vision 20/50. Sees retinal specialist Dr. Haroon Claros Malignant neoplasm of overlapping sites of right female breast (HCC) 02/2020 Nonspecific (abnormal) findings on radiological and other examination of skull and head 11/16/2005 MRI brain: left pituitary enlargement needing further evaluation Other chest pain 12/18/2003 UT ruled out. Adenosine stress test WNL; 2d echo [id number]% Psoriasis Pure hypercholesterolemia Type II or unspecified type diabetes mellitus with ophthalmic manifestations, not stated as uncontrolled(250.50) 02/16/1985 PAST SURGICAL HISTORY Procedure Laterality Date BREAST BIOPSY HX Right 01/26/2020 CHOLECYSTECTOMY OVARIAN CYSTECTOMY approx. 1989 RPR RETINAL DTCHMNT DRG SUBRETINAL FLUID PC Laser repair retinal detach Social History Tobacco Use Smoking status: Former Packs/day: 0.25 Years: 6.00 Pack years: 1.50 Types: Cigarettes Quit date: 02/17/1976 Years since quittin.3 Smokeless tobacco: Never Substance Use Topics Alcohol use: No Drug use: No FAMILY HISTORY Problem Relation Age of Onset Diabetes Mother Stroke Father Diabetes Brother Allergies: ALLERGIES Allergen Reactions Lovastatin Rash Nylon Stockings [Ot* Rash Vicodin [Hydrocodon* Intolerance vomiting, nausea, unsteady Current Meds: enalapril (VASOTEC) 20 mg tablet Take 1 tablet by mouth twice daily. metFORMIN (GLUCOPHAGE) 1,000 mg tablet Take 1 tablet by mouth twice daily with meals. blood sugar diagnostic (BLOOD GLUCOSE TEST) test strip Test blood sugar(s) 2 times daily. Dx: Type 2 DM - Uncontrolled E11.65 Insulin: No Lancets lancets Test blood sugar(s) 2 times daily. Dx: Type 2 DM - Uncontrolled E11.65 Insulin: No CALCIUM-VITAMIN D3 ORAL Take 1 tablet by mouth once daily. acetaminophen (TYLENOL EXTRA STRENGTH) 500 mg tablet Take 500 mg by mouth as needed. omega-3/dha/epa/dpa/fish oil (OMEGA-3 2100 ORAL) Take 1 tablet by mouth twice daily. Lancets lancets Test blood sugar(s) 3 times daily. Dx: Type 2 DM - Controlled E11.9 Insulin: No nystatin (MYCOSTATIN) powder Apply 1 application to affected area twice daily as needed (itching between breasts). Blood Pressure Cuff - Home Use BLOOD PRESSURE CUFF FOR HOME USE. DX: I10 pt-zc-dbhv-FA-Ca carb-vit K (ONE-A-DAY WOMENS FORMULA) 18 mg iron-400 mcg-500 mg tab Take 1 tablet by mouth once daily. Aspirin 81 mg Tab Take 1 tablet by mouth once daily. VITAMIN A ORAL Take 1 tablet by mouth as needed. blood sugar diagnostic (BLOOD GLUCOSE TEST) test strip Test blood sugar(s) 3 times daily. Dx: Type 2 DM - Controlled E11.9 Insulin: No cyanocobalamin (VITAMIN B-12) 1,000 mcg tab Take 1 tablet by mouth once daily. Review of Systems: The remainder of the review of systems is negative. PE: 06/06/22 0944 BP: 158/80 Pulse: 76 Resp: 16 Temp: 36.1 C (97 F) TempSrc: Left Tympanic Weight: 63.5 kg (140 lb) Gen: A&O, NAD, non-toxic appearing, Pleasant, cooperative, normal outlook/affect, no signs of memory difficulty HEENT: NT/AC, PERRLA, EOMs intact b/l, nares clear and patent b/l, pharynx without erythema, exudate or lesions. MMM, Uvula midline. EACs without erythema or debris. TMs pearly huizar with intact landmarks b/l. Hard of hearing Neck: supple, No cervical LAD, no thyromegaly, no carotid bruits CV: RRR, normal S1 and S2, no murmurs, no gallops, no rubs, Pulses 2+ and symmetric in UE and LE b/l Lungs: normal respiratory effort, CTA b/l, no wheezing or rhonchi or rales Abd: soft, NT, ND, +BS, no hepatosplenomegaly MS: FROM all 4 extremities Neuro: CN II-XII intact b/l, strength 5/5 b/l UE and LE, DTRs 2/4 UE and LE, sensation intact. Skin: warm, dry, intact, No rashes or lesions on exposed skin. Foot exam: Monofilament wnl on right and left feet. Normal pulses ASSESSMENT/PLAN: 1. Uncontrolled type 2 diabetes mellitus with hyperglycemia (HCC) - ICD9: 250.02, ICD10: E11.65 (primary diagnosis) - Uncontrolled - Worsening control - Barriers to control: diet adherence and lack of exercise - Continue current medications - HGB A1C - COMP METABOLIC PANEL - CBC 2. Pure hypercholesterolemia - ICD9: 272.0, ICD10: E78.00 Recheck labs as ordered. - COMP METABOLIC PANEL - CBC 3. Essential hypertension, benign - ICD9: 401.1, ICD10: I10 - good control - Continue current medication(s) - Encouraged dietary sodium restriction/DASH diet - Recommended regular aerobic exercise. - Recommend home blood pressure monitoring, to bring results in on next visit - Goal of BP <130/80 4. Vitamin D deficiency - ICD9: 268.9, ICD10: E55.9 Continue supplement 5. Vitamin B12 deficiency - ICD9: 266.2, ICD10: E53.8 Continue supplement 6. Malignant neoplasm of upper-outer quadrant of right breast in female, estrogen receptor negative (HCC) - ICD9: 174.4, V86.1, ICD10: C50.411, Z17.1 She refuses therapy/treatment when this discussion has been held in the past years as well as current, she understands her risks Emiliano Pelletier, DO To ER if develops chest pain, shortness of breath, or severe worsening of symptoms. Discussed risks, benefits, alternatives, and potential side effects of medications. Patient expressed understanding and agreed with the plan. Emiliano Pelletier DO [address] [place] [address] documented in this encounter [facility] 06-05-2022 Miscellaneous Notes Attempted to contact patient and line rang busy. Will need to try again later. Raissa Vazquez Please call patient and let her know that lab work results are back and look good! No acute concerns. HgA1c is more elevated than priors --- all of these results will be discussed in greater detail at upcoming appointment tomorrow. Thank you, Kirsten Latham APRN.COM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 documented in this encounter [facility] 05-27-2022 Miscellaneous Notes Yanely from [facility] calling for refill for pt along with 14 day refill to local pharmacy as she is about out of meds. [facility] phones requesting refills as follows: Requested Prescriptions Pending Prescriptions Disp Refills enalapril (VASOTEC) 20 mg tablet 180 tablet 3 Sig: Take 1 tablet by mouth twice daily. enalapril (VASOTEC) 20 mg tablet 14 tablet 0 Sig: Take 1 tablet by mouth once daily. JENNA: 12/06/21 NOV: 06/06/22 Last Refill: 04/17/21 #180 3 refills Steffi Lay LPN documented in this encounter [facility] 12-09-2021 History of Present illness Narrative Spoke with pt states will get done soon . When son can bring her. Signed albumin urine order. Please remind patient that all blood work from 12/06 appointment needs completed when able. Thank you, Kirsten Gavin APRN.COM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 POPULATION HEALTH NAVIGATION OUTREACH Action/FYI follow up 06/06/22 pended urine albumin please sign and add any other orders send back to me will let patient know to get last visit 12/06/21, follow up 06/06/22 left message to call me back to schedule eye exam, discuss AD HGBa1c ordered Pt identified by name and : NO Outreach Outcome/Action Unable to reach patient: Left message Did you use a PCP flex slot to schedule this appointment? N/A Reason for Outreach Care Gap or Scheduling/Wellness visits Payer: Payor: [employer] / Plan: [employer] HMO / Product Type: HMO / Care Gap Reviewed:: Diabetic Eye Exam HBA1C Nephropathy (Albumin/Creatinine) Urine Reminder: Reminder note to check Health Maintenance for items below Health Maintenance items due: PNEUMOCOCCAL: 65+(1 - PCV) Never done SHINGRIX VACCINE(1 of 2) Never done BONE DENSITY Never done DILATED RETINAL EXAM due on 05/25/2019 ADVANCE DIRECTIVE DISCUSSION Never done HBA1C due on 12/06/2021 URINE ALBUMIN:CREATININE RATIO due on 12/03/2021 Message Sent to Practice: No Navigation Signature: Janet Shea MA December 09, 2021 1:26 PM documented in this encounter [facility] 12-06-2021 History of Present illness Narrative Patient presents with: 6 Month Exam HPI: Magui Jimenez is a 76 year old female who presents to the office today for review of health conditions. Concerns today: Right breast lump, diagnosed with breast CA, was seen by breast surgeon, general surgeon and [facility] in the last 2 years. Was told need surgical excision and chemotherapy/radiation likely. She stated at that time that she has thought about these options and I don't want to do any of it. I won't claim that I have breast cancer. I understand there is a lump there but I really believe as a Islam that I am at piece with this decision. Denies any breast pain or skin changes or nipple discharge. Refuses to treat it and understands risks involved. She still feels this same way Vitamin D deficiency, taking supplements Hx of anemia, no bleeding or fatigue concerns. Tolerating her metformin Denies any Blood in stools or severe joint pains or rashes. Ms. Jimenez has past history of diabetes. Since our last visit she denies excessive thirst or increased frequency of urination, chest pain or dyspnea , new or unusual visual symptoms, and low sugar/hypoglycemic reactions. Depression- no. Follows a diabetic diet most of the time. She is compliant with medication(s) and is tolerating med(s) without any side effects. She reports checking her glucose on a once a day schedule with sugars in the <150 range. Patient's last HgA1C was Hemoglobin A1C (%) Date Value 12/03/2020 7.1 04/18/2019 7.0 Hemoglobin A1C (POCT) (%) Date Value 06/06/2021 6.3 ) Last Ophthalmology exam was within the past 12 months Ms. Jimenez reports history of hyperlipidemia. Current therapy includes diet and exercise. Denies side effects of muscle weakness or achiness. Her most recent lipid panels are reviewed. Cholesterol, Total (mg/dL) Date Value 06/06/2021 179 12/03/2020 174 HDL Cholesterol (mg/dL) Date Value 06/06/2021 50 12/03/2020 50 LDL Cholesterol (mg/dL) Date Value 06/06/2021 115 12/03/2020 108 Triglyceride (mg/dL) Date Value 06/06/2021 72 12/03/2020 80 Ms. Jimeenz indicates a history of hypertension and states that she is feeling well and denies any symptoms referable to elevated blood pressure. Specifically denies headache, chest pain, palpitations, dyspnea, and peripheral edema. Patient denies any side effects of her medication(s) and is compliant with their regimen. Last 3 Encounter BP Readings: Date: BP: 12/06/2021 120/80 06/06/2021 142/82 12/03/2020 120/80 She watches her diet for sodium, low fat and low cholesterol some of the time. She does not check BP's generally. Magui gets sporadic irregular exercise. PAST MEDICAL HISTORY Diagnosis Date Anemia, unspecified 02/17/2004 normocytic; iron, B12, folate, thyroid, hgb electrophereesis all WNL 02/20. Anemia did improve on supplemental iron. Degeneration of lumbar or lumbosacral intervertebral disc 02/16/2006 per xray Dermatophytosis of nail 06/16/[address] Stuart Diabetic peripheral neuropathy (HCC) Elevated sedimentation rate Essential hypertension, benign Macular degeneration (senile) of retina, unspecified 03/19/2004 macular edema from diabetic retinopathy with best corrected vision 20/50. Sees retinal specialist Dr. Haroon Claros Malignant neoplasm of overlapping sites of right female breast (HCC) 02/2020 Nonspecific (abnormal) findings on radiological and other examination of skull and head 11/16/2005 MRI brain: left pituitary enlargement needing further evaluation Other chest pain 12/18/2003 UT ruled out. Adenosine stress test WNL; 2d echo [id number]% Psoriasis Pure hypercholesterolemia Type II or unspecified type diabetes mellitus with ophthalmic manifestations, not stated as uncontrolled(250.50) 02/16/1985 PAST SURGICAL HISTORY Procedure Laterality Date BREAST BIOPSY HX Right 01/26/2020 CHOLECYSTECTOMY OVARIAN CYSTECTOMY approx. 1989 RPR RETINAL DTCHMNT DRG SUBRETINAL FLUID PC Laser repair retinal detach Social History Tobacco Use Smoking status: Former Packs/day: 0.25 Years: 6.00 Pack years: 1.50 Types: Cigarettes Quit date: 02/17/1976 Years since quittin.8 Smokeless tobacco: Never Substance Use Topics Alcohol use: No Drug use: No FAMILY HISTORY Problem Relation Age of Onset Diabetes Mother Stroke Father Diabetes Brother Allergies: ALLERGIES Allergen Reactions Lovastatin Rash Nylon Stockings [Ot* Rash Vicodin [Hydrocodon* Intolerance vomiting, nausea, unsteady Current Meds: blood sugar diagnostic (BLOOD GLUCOSE TEST) test strip Test blood sugar(s) 2 times daily. Dx: Type 2 DM - Uncontrolled E11.65 Insulin: No VITAMIN A ORAL Take 1 tablet by mouth as needed. CALCIUM-VITAMIN D3 ORAL Take 1 tablet by mouth once daily. acetaminophen (TYLENOL EXTRA STRENGTH) 500 mg tablet Take 500 mg by mouth as needed. omega-3/dha/epa/dpa/fish oil (OMEGA-3 2100 ORAL) Take 1 tablet by mouth twice daily. Lancets lancets Test blood sugar(s) 3 times daily. Dx: Type 2 DM - Controlled E11.9 Insulin: No blood sugar diagnostic (BLOOD GLUCOSE TEST) test strip Test blood sugar(s) 3 times daily. Dx: Type 2 DM - Controlled E11.9 Insulin: No nystatin (MYCOSTATIN) powder Apply 1 application to affected area twice daily as needed (itching between breasts). Blood Pressure Cuff - Home Use BLOOD PRESSURE CUFF FOR HOME USE. DX: I10 df-yd-bajc-FA-Ca carb-vit K (ONE-A-DAY WOMENS FORMULA) 18 mg iron-400 mcg-500 mg tab Take 1 tablet by mouth once daily. Aspirin 81 mg Tab Take 1 tablet by mouth once daily. metFORMIN (GLUCOPHAGE) 1,000 mg tablet Take 1 tablet by mouth twice daily with meals. enalapril (VASOTEC) 20 mg tablet Take 1 tablet by mouth twice daily. Lancets lancets Test blood sugar(s) 2 times daily. Dx: Type 2 DM - Uncontrolled E11.65 Insulin: No enalapril (VASOTEC) 20 mg tablet Take 1 tablet by mouth twice daily. (Patient not taking: Reported on 06/06/2021 ) cyanocobalamin (VITAMIN B-12) 1,000 mcg tab Take 1 tablet by mouth once daily. Review of Systems: The remainder of the review of systems is negative. PE: 12/06/21 0931 BP: 120/80 Pulse: 80 Resp: 16 Temp: 36.1 C (97 F) TempSrc: Left Tympanic Weight: 63.5 kg (140 lb) Gen: A&O, NAD, non-toxic appearing, Pleasant, cooperative, normal outlook/affect, no signs of memory difficulty HEENT: NT/AC, PERRLA, EOMs intact b/l, nares clear and patent b/l, pharynx without erythema, exudate or lesions. MMM, Uvula midline. EACs without erythema or debris. TMs pearly huizar with intact landmarks b/l. Hard of hearing Neck: supple, No cervical LAD, no thyromegaly, no carotid bruits CV: RRR, normal S1 and S2, no murmurs, no gallops, no rubs, Pulses 2+ and symmetric in UE and LE b/l Lungs: normal respiratory effort, CTA b/l, no wheezing or rhonchi or rales Abd: soft, NT, ND, +BS, no hepatosplenomegaly MS: FROM all 4 extremities Neuro: CN II-XII intact b/l, strength 5/5 b/l UE and LE, DTRs 2/4 UE and LE, sensation intact. Skin: warm, dry, intact, No rashes or lesions on exposed skin. Foot exam: Monofilament wnl on right and left feet. Normal pulses ASSESSMENT/PLAN: 1. Controlled type 2 diabetes mellitus with complication, without long-term current use of insulin (HCC) - ICD9: 250.90, ICD10: E11.8 (primary diagnosis) Controlled. - Continue current medications - Encouraged regular aerobic exercise and weight loss - BP goal of <130/80 - LDL goal of <100 - METFORMIN 1,000 MG TABLET - HGB A1C - COMP METABOLIC PANEL - CBC + DIFF - VITAMIN B12 BLOOD 2. Essential hypertension, benign - ICD9: 401.1, ICD10: I10 - good control - Encouraged dietary sodium restriction/DASH diet - Recommended regular aerobic exercise. - Recommend home blood pressure monitoring, to bring results in on next visit - Discussed need and benefit for weight loss. - Goal of BP <130/80 3. Pure hypercholesterolemia - ICD9: 272.0, ICD10: E78.00 - recheck labs, diet controled - COMP METABOLIC PANEL - LIPID PANEL BASIC 4. Malignant neoplasm of upper-outer quadrant of right breast in female, estrogen receptor negative (HCC) - ICD9: 174.4, V86.1, ICD10: C50.411, Z17.1 She refuses any treatment for this condition diagnosed in the recent past, she is of right/sound mind to make this decision for herself and she understands it is worsening with time and not otherwise curable. 5. Anemia, unspecified type - ICD9: 285.9, ICD10: D64.9 - CBC + DIFF - IRON + TIBC 6. Vitamin D deficiency - ICD9: 268.9, ICD10: E55.9 - VITAMIN D 25 HYDROXY Emiliano L Pelletier, DO To ER if develops chest pain, shortness of breath, or severe worsening of symptoms. Discussed risks, benefits, alternatives, and potential side effects of medications. Patient expressed understanding and agreed with the plan. Emiliano Pelletier DO [address] [place] [address] documented in this encounter [facility] 06-07-2021 Miscellaneous Notes Patient informed and verbalized understanding. Raissa Avendano Ma Please let patient know that her blood work results look good. Everything remains stable. Continue with healthy diet and routine movement/exercise. Keep up the good work! Kirsten Gavin APRN.SANDEEP documented in this encounter [facility] 06-06-2021 Instructions Tiana Gary LPN - 06/06/2021 8:49 AM EDT Schedule 6 month follow-up Schedule DEXA scan. Get blood work done today. BONE MINERAL DENSITY PATIENT INSTRUCTIONS ======= Bone mineral density testing measures the amount of calcium in certain parts of your bones. This information determines how strong your bones are. The test is used to detect osteoporosis, a disease in which the bone's mineral content and density are low, increasing a person's risk of fractures. The lumbar spine (lower back) and the hip are the skeletal sites usually examined. For the test, remember that: 1. You cannot take this test if you are . 2. Eat a normal diet on the day of the test. 3. Take your medications as you normally would. 4. DO NOT take calcium supplements (such as Tums) for 24 hours before the test. 5. On the day of the test, leave valuables (jewelry or credit cards) at home. 6. The test should be performed prior to oral, rectal or IV contrast studies, or at least 7 days after any of these studies. For the test, you may be asked to wear a hospital gown. You will lie on your back, on a padded table, in a comfortable position. Generally, you can resume your usual activities immediately. documented in this encounter [facility] 06-06-2021 History of Present illness Narrative Chief Complaint Patient presents with: Recheck HPI Magui Jimenez is a 75 year old female who presents here today for Above Complaints. Magui is an established patient of Dr. Pelletier. Magui is a new patient to me today. 6 month follow-up: Per last visit on 12/03/[address] Pelletier: ASSESSMENT/PLAN: 1. Controlled type 2 diabetes mellitus with complication, without long-term current use of insulin (HCC) - ICD9: 250.90, ICD10: E11.8 (primary diagnosis) uncontrolled - Continue current medications - Check HgA1C, fasting glucose, fasting lipid panel, CMP and CBC - Blood glucose monitoring on a once a day schedule - HOME BLOOD GLUCOSE MONITOR - BLOOD GLUCOSE TEST STRIPS - LANCETS - HGB A1C - ALBUMIN/CREAT RATIO RND UR 2. Essential hypertension, benign - ICD9: 401.1, ICD10: I10 - good control - Continue current medication(s) - Encouraged dietary sodium restriction/DASH diet - Recommended regular aerobic exercise. - Recommend home blood pressure monitoring, to bring results in on next visit - Goal of BP <130/80 3. Anemia, unspecified type - ICD9: 285.9, ICD10: D64.9 - recheck labs today - CBC + DIFF - VITAMIN B12 BLOOD 4. Pure hypercholesterolemia - ICD9: 272.0, ICD10: E78.00 - recheck labs today - CBC + DIFF - COMP METABOLIC PANEL - LIPID PANEL BASIC 5. Screening for colon cancer - ICD9: V76.51, ICD10: Z12.11 - FECAL OCCULT BLOOD TEST 6. Vitamin D deficiency - ICD9: 268.9, ICD10: E55.9 - VITAMIN D 25 HYDROXY 7. Malignant neoplasm of upper-outer quadrant of right breast in female, estrogen receptor negative (HCC) - ICD9: 174.4, V86.1, ICD10: C50.411, Z17.1 - see HPI, she refuses any surgery, chemotherapy or radiation therapy. She has seen all specialists. She is competent to make this decision/has autonomy. Results of blood work normal with no medication changes needed. Today.. Overall, feeling great. Had family all over to her house for vicky. Very busy hosting everyone. Feeling slightly fatigued from all the house work but getting back to normal schedule. DM Patient reports she is feeling well overall in regards to diabetes A1C 6.3 % today in office. Patient's last HgA1C was 7.1% -- 6 months ago. Current regimen: metformin 1000 mg BID Tolerating well: Yes Med compliance: Yes Checking sugars: Yes, everyday. Skip some days occasionally. Sugars range: around 140s normally. Signs of hypoglycemia?: No. Diet: 3 meals per day, limits carbs and sugar when able. Denies polyuria, polydipsia, numbness, tingling or pain in extremities, new or unusual visual symptoms, unintended weight changes, lightheadedness/dizziness, bowel changes/loose stools, chest pain or dyspnea Last eye exam: Just about 1 year. Last podiatry exam: Just about 1 year. HTN: Vasotec 20 mg BID. Stable. Well controlled. Last 14 Encounter BP Readings: Date: BP: 06/06/2021 142/82 12/03/2020 120/80 02/21/2020 168/88 01/26/2020 142/70 01/23/2020 138/64 12/26/2019 156/84 09/29/2018 136/84 08/19/2018 160/82 06/22/2018 148/78 05/25/2018 158/80[recheck[ 05/10/2018 152/80[recheck[ 03/01/2018 150/82[recheck[ 08/24/2017 140/82 06/25/2016 163/82[AMANDA BP[ HLD: White Salmon 3 BID Diet controlled. Breast cancer: Still declining any intervention. Unsure if size of lump has increased or decreased per pt. Has not noticed any need lumps to either breast. HM: Discussed importance of immunizations and screening with patient. Patient declines any immunizations. Agreeable to DEXA screening. DM foot exam completed today. Past medical history, appointments, medications, allergies reviewed. Previous Medical History PAST MEDICAL HISTORY Diagnosis Date Anemia, unspecified 02/17/2004 normocytic; iron, B12, folate, thyroid, hgb electrophereesis all WNL 02/20. Anemia did improve on supplemental iron. Degeneration of lumbar or lumbosacral intervertebral disc 02/16/2006 per xray Dermatophytosis of nail 06/16/[address] Stuart Diabetic peripheral neuropathy (HCC) Elevated sedimentation rate Essential hypertension, benign Macular degeneration (senile) of retina, unspecified 03/19/2004 macular edema from diabetic retinopathy with best corrected vision 20/50. Sees retinal specialist Dr. Haroon Claros Malignant neoplasm of overlapping sites of right female breast (HCC) 02/2020 Nonspecific (abnormal) findings on radiological and other examination of skull and head 11/16/2005 MRI brain: left pituitary enlargement needing further evaluation Other chest pain 12/18/2003 UT ruled out. Adenosine stress test WNL; 2d echo [id number] Psoriasis Pure hypercholesterolemia Type II or unspecified type diabetes mellitus with ophthalmic manifestations, not stated as uncontrolled(250.50) 02/16/1985 Previous Surgical History PAST SURGICAL HISTORY Procedure Laterality Date BREAST BIOPSY HX Right 01/26/2020 CHOLECYSTECTOMY OVARIAN CYSTECTOMY approx. 1989 RPR RETINAL DTCHMNT DRG SUBRETINAL FLUID PC Laser repair retinal detach Family History FAMILY HISTORY Problem Relation Age of Onset Diabetes Mother Stroke Father Diabetes Brother Patient Allergies ALLERGIES Allergen Reactions Lovastatin Rash Nylon Stockings [Ot* Rash Vicodin [Hydrocodon* Intolerance vomiting, nausea, unsteady Current Medications Current Outpatient Medications on File Prior to Visit Medication Sig enalapril (VASOTEC) 20 mg tablet Take 1 tablet by mouth twice daily. metFORMIN (GLUCOPHAGE) 1,000 mg tablet Take 1 tablet by mouth twice daily with meals. blood sugar diagnostic (BLOOD GLUCOSE TEST) test strip Test blood sugar(s) 2 times daily. Dx: Type 2 DM - Uncontrolled E11.65 Insulin: No Lancets lancets Test blood sugar(s) 2 times daily. Dx: Type 2 DM - Uncontrolled E11.65 Insulin: No enalapril (VASOTEC) 20 mg tablet Take 1 tablet by mouth twice daily. VITAMIN A ORAL Take 1 tablet by mouth as needed. CALCIUM-VITAMIN D3 ORAL Take 1 tablet by mouth once daily. acetaminophen (TYLENOL EXTRA STRENGTH) 500 mg tablet Take 500 mg by mouth as needed. omega-3/dha/epa/dpa/fish oil (OMEGA-3 2100 ORAL) Take 1 tablet by mouth twice daily. Lancets lancets Test blood sugar(s) 3 times daily. Dx: Type 2 DM - Controlled E11.9 Insulin: No blood sugar diagnostic (BLOOD GLUCOSE TEST) test strip Test blood sugar(s) 3 times daily. Dx: Type 2 DM - Controlled E11.9 Insulin: No nystatin (MYCOSTATIN) powder Apply 1 application to affected area twice daily as needed (itching between breasts). Blood Pressure Cuff - Home Use BLOOD PRESSURE CUFF FOR HOME USE. DX: I10 [id number] carb-vit K (ONE-A-DAY WOMENS FORMULA) 18 mg iron-400 mcg-500 mg tab Take 1 tablet by mouth once daily. cyanocobalamin (VITAMIN B-12) 1,000 mcg tab Take 1 tablet by mouth once daily. Aspirin 81 mg Tab Take 1 tablet by mouth once daily. No current facility-administered medications on file prior to visit. Social History Social History Tobacco Use Smoking status: Former Smoker Packs/day: 0.25 Years: 6.00 Pack years: 1.50 Types: Cigarettes Quit date: 02/17/1976 Years since quittin.3 Smokeless tobacco: Never Used Substance Use Topics Alcohol use: No Drug use: No REVIEW OF SYSTEMS: as above Reviewed relevant PMHx, PSHx, Social Hx, current medications and allergies. Review of Symptoms See HPI. All other systems are negative. EXAM: BP 142/82 (BP Site: Left Arm, BP Position: Sitting, BP Cuff Size: Regular Adult) Pulse 68 Resp 16 Wt 64.7 kg (142 lb 9.6 oz) LMP 06/02/1989 BMI 24.48 kg/m General Appearance: Well appearing, alert, in no acute distress, well-hydrated, well nourished.. Skin: Skin color, texture, turgor normal, no suspicious rashes or lesions. Head: Normocephalic, no masses, lesions, tenderness or abnormalities. Neck: Supple, no adenopathy; thyroid symmetric, normal size, no bruits. Back:no pain to palpation of vertebrae, good flexion and extension, good range of motion, no muscle tenderness, reflexes are 2+ and symmetric, motor and sensory appear to be normal, negative SLR test, no evidence of scoliosis Lungs: Lungs clear to auscultation. No wheezing, rhonchi, rales.. Heart: RRR without murmur, gallop, or rubs. No ectopy. Extremities: No deformities, edema, skin discoloration, clubbing or cyanosis. Good capillary refill. . Musculoskeletal: No joint swelling, deformity, or tenderness. Peripheral Pulses: Normal. Neurologic: Gait normal. Reflexes normal and symmetric. Sensation grossly intact.. Lymph Nodes: No cervical lymphadenopathy, No supraclavicular lymphadenopathy, No axillary lymphadenopathy. and No inguinal lymphadenopathy.. Feet:Shoes and socks removed, Are you having foot pain: NO, No deformities, ulcers, calluses, normal distal pulses and sensitive to 10 gm monofilament Health Maintenance List COVID-19 VACCINE(1) Never done DTAP,TDAP,TD(1 - Tdap) Never done SHINGRIX VACCINE(1 of 2) Never done BONE DENSITY Never done PNEUMOVAX AGE 65 AND OVER WITH 5YR LOOKBACK(1) Never done COLORECTAL CANCER SCREENING due on 08/22/2014 DILATED RETINAL EXAM due on 05/25/2019 ADVANCE DIRECTIVE DISCUSSION Never done DIABETIC FOOT EXAM due on 03/06/2021 HBA1C due on 06/03/2021 INFLUENZA(Season Ended) due on 10/17/2021 URINE ALBUMIN:CREATININE RATIO due on 12/03/2021 LDL CHOLESTEROL due on 12/03/2021 ANNUAL PCP TEAM CHRONIC DISEASE VISIT due on 12/03/2021 BP CONTROLLED (<130/80) due on 12/03/2021 DEPRESSION SCREENING due on 12/03/2021 HEPATITIS C SCREENING Completed MENINGOCOCCAL CONJUGATE Aged Out ASSESSMENT/PLAN: 1. Controlled type 2 diabetes mellitus with complication, without long-term current use of insulin (HCC) - ICD9: 250.90, ICD10: E11.8 (primary diagnosis) Controlled. - Continue current medications - Blood glucose monitoring on a once a day schedule - Encouraged regular aerobic exercise and weight loss - Follow up in 6 months, sooner should any other issues arise. - Discussed diabetic education issues of hypoglycemic symptoms, hyperglycemic symptoms, diet, importance of exercise, importance of appointments with [facility] and importance of annual examinations with Opthalmology with patient. - BP goal of <130/80 - LDL goal of <100 - CBC - COMP METABOLIC PANEL - HEMOGLOBIN A1C (POC) 2. Essential hypertension, benign - ICD9: 401.1, ICD10: I10 - good control - Continue current medication(s) - Encouraged dietary sodium restriction/DASH diet - Recommended regular aerobic exercise. - Recommend home blood pressure monitoring, to bring results in on next visit - Goal of BP <140/90 - Recommended no refined sugar, low refined starch, healthy oil intake (olive oil), healthy protein (fish) along the lines of the Mediterranean diet. - CBC - COMP METABOLIC PANEL 3. Pure hypercholesterolemia - ICD9: 272.0, ICD10: E78.00 Well controlled by diet and White Salmon 3 supplement. Will determine current status based on blood work today. - LIPID PANEL BASIC 4. Malignant neoplasm of upper-outer quadrant of right breast in female, estrogen receptor negative (HCC) - ICD9: 174.4, V86.1, ICD10: C50.411, Z17.1 Continues to refuse any surgery, chemotherapy or radiation therapy. She remains competent to make this decision/has autonomy. Discussed self breast exams to continue to monitor this area. 5. Encounter for screening for osteoporosis - ICD9: V82.81, ICD10: Z13.820 Discussed need for routine screening for osteoporosis. Pt agreeable. Will schedule at some point per pt. - DXA-AXIAL SKELETON RTO in 6 months for routine follow-up, sooner if needed. Prescription instructions reviewed with patient as applicable. Potential red flag symptoms discussed with the patient. Reviewed appropriate action plan to take if red flag symptoms occur. Patient agreeable to treatment plan. Kirsten Gavin APRN.CNP [id number] [place] [address] documented in this encounter [facility] 05-16-2016 History of Past i llness Narrative Problem Noted Date Resolved Date History of cholecystectomy 05/16/201608/24 Gallstone (impacted) 05/16/2016 08/24/2017 Choledocholithiasis 05/09/2016 08/24/2017 Overview: RUQ US at [facility] showed biliary stones and sludge with CBD dilation (unclear how dilated) 05/08: ALK 279, AST 492, ALT 249, lipase 115, bilirubin 1.30 05/10 ERCP with biliary sphincterotomy performed 05/09 with complete resolution of choledocolithiasis Plan: IVF maintenance 75ml/h Cholecystectomy planned once BP stable Pure hypercholesterolemia 05/09/20152017 Pain in limb 05/20/2006 08/24/2017 Other specified disorder of skin 03/11/2006 08/24/2017 Unspecified hereditary and idiopathic peripheral neuropathy 05/27/2005 06/03/2021 Dermatophytosis of nail 05/27/2005 08/25/19 18 documented as of this encounter (statuses as of 06/06/2021) [facility] History of Past illness Narrative* Problem Noted Date Resolved Date History of cholecystectomy 05/16/201608/24 Gallstone (impacted) 05/16/2016 08/24/2017 Choledocholithiasis 05/09/2016 08/24/2017 Overview: RUQ US at [facility] showed biliary stones and sludge with CBD dilation (unclear how dilated) 05/08: ALK 279, AST 492, ALT 249, lipase 115, bilirubin 1.30 05/10 ERCP with biliary sphincterotomy performed 05/09 with complete resolution of choledocolithiasis Plan: IVF maintenance 75ml/h Cholecystectomy planned once BP stable Pure hypercholesterolemia 05/09/20152017 Pain in limb 05/20/2006 08/24/2017 Other specified disorder of skin 03/11/2006 08/24/2017 Unspecified hereditary and idiopathic peripheral neuropathy 05/27/2005 06/03/2021 Dermatophytosis of nail 05/27/2005 08/25/19 18 documented as of this encounter (statuses as of 06/07/2021) [facility] History of Past illness Narrative* Problem Noted Date Resolved Date History of cholecystectomy 05/16/201608/24 Gallstone (impacted) 05/16/2016 08/24/2017 Choledocholithiasis 05/09/2016 08/24/2017 Overview: RUQ US at [facility] showed biliary stones and sludge with CBD dilation (unclear how dilated) 05/08: ALK 279, AST 492, ALT 249, lipase 115, bilirubin 1.30 05/10 ERCP with biliary sphincterotomy performed 05/09 with complete resolution of choledocolithiasis Plan: IVF maintenance 75ml/h Cholecystectomy planned once BP stable Pure hypercholesterolemia 05/09/20152017 Pain in limb 05/20/2006 08/24/2017 Other specified disorder of skin 03/11/2006 08/24/2017 Unspecified hereditary and idiopathic peripheral neuropathy 05/27/2005 06/03/2021 Dermatophytosis of nail 05/27/2005 08/25/19 18 documented as of this encounter (statuses as of 12/06/2021) [facility] History of Past illness Narrative* Problem Noted Date Resolved Date History of cholecystectomy 05/16/201608/24 Gallstone (impacted) 05/16/2016 08/24/2017 Choledocholithiasis 05/09/2016 08/24/2017 Overview: RUQ US at [facility] showed biliary stones and sludge with CBD dilation (unclear how dilated) 05/08: ALK 279, AST 492, ALT 249, lipase 115, bilirubin 1.30 05/10 ERCP with biliary sphincterotomy performed 05/09 with complete resolution of choledocolithiasis Plan: IVF maintenance 75ml/h Cholecystectomy planned once BP stable Pure hypercholesterolemia 05/09/20152017 Pain in limb 05/20/2006 08/24/2017 Other specified disorder of skin 03/11/2006 08/24/2017 Unspecified hereditary and idiopathic peripheral neuropathy 05/27/2005 06/03/2021 Dermatophytosis of nail 05/27/2005 08/25/19 18 documented as of this encounter (statuses as of 12/09/2021) [facility] History of Past illness Narrative* Problem Noted Date Resolved Date History of cholecystectomy 05/16/201608/24 Gallstone (impacted) 05/16/2016 08/24/2017 Choledocholithiasis 05/09/2016 08/24/2017 Overview: RUQ US at [facility] showed biliary stones and sludge with CBD dilation (unclear how dilated) 05/08: ALK 279, AST 492, ALT 249, lipase 115, bilirubin 1.30 05/10 ERCP with biliary sphincterotomy performed 05/09 with complete resolution of choledocolithiasis Plan: IVF maintenance 75ml/h Cholecystectomy planned once BP stable Pure hypercholesterolemia 05/09/20152017 Pain in limb 05/20/2006 08/24/2017 Other specified disorder of skin 03/11/2006 08/24/2017 Unspecified hereditary and idiopathic peripheral neuropathy 05/27/2005 06/03/2021 Dermatophytosis of nail 05/27/2005 08/25/19 18 documented as of this encounter (statuses as of 05/28/2022) [facility] History of Past illness Narrative* Problem Noted Date Resolved Date History of cholecystectomy 05/16/201608/24 Gallstone (impacted) 05/16/2016 08/24/2017 Choledocholithiasis 05/09/2016 08/24/2017 Overview: RUQ US at [facility] showed biliary stones and sludge with CBD dilation (unclear how dilated) 05/08: ALK 279, AST 492, ALT 249, lipase 115, bilirubin 1.30 05/10 ERCP with biliary sphincterotomy performed 05/09 with complete resolution of choledocolithiasis Plan: IVF maintenance 75ml/h Cholecystectomy planned once BP stable Pure hypercholesterolemia 05/09/20152017 Pain in limb 05/20/2006 08/24/2017 Other specified disorder of skin 03/11/2006 08/24/2017 Unspecified hereditary and idiopathic peripheral neuropathy 05/27/2005 06/03/2021 Dermatophytosis of nail 05/27/2005 08/25/19 18 documented as of this encounter (statuses as of 06/07/2022) [facility] History of Past illness Narrative* Problem Noted Date Resolved Date History of cholecystectomy 05/16/201608/24 Gallstone (impacted) 05/16/2016 08/24/2017 Choledocholithiasis 05/09/2016 08/24/2017 Overview: RUQ US at [facility] showed biliary stones and sludge with CBD dilation (unclear how dilated) 05/08: ALK 279, AST 492, ALT 249, lipase 115, bilirubin 1.30 05/10 ERCP with biliary sphincterotomy performed 05/09 with complete resolution of choledocolithiasis Plan: IVF maintenance 75ml/h Cholecystectomy planned once BP stable Pure hypercholesterolemia 05/09/20152017 Pain in limb 05/20/2006 08/24/2017 Other specified disorder of skin 03/11/2006 08/24/2017 Unspecified hereditary and idiopathic peripheral neuropathy 05/27/2005 06/03/2021 Dermatophytosis of nail 05/27/2005 08/25/19 18 documented as of this encounter (statuses as of 06/07/2022) [facility] History of Past illness Narrative* Problem Noted Date Resolved Date History of cholecystectomy 05/16/201608/24 Gallstone (impacted) 05/16/2016 08/24/2017 Choledocholithiasis 05/09/2016 08/24/2017 Overview: RUQ US at [facility] showed biliary stones and sludge with CBD dilation (unclear how dilated) 05/08: ALK 279, AST 492, ALT 249, lipase 115, bilirubin 1.30 05/10 ERCP with biliary sphincterotomy performed 05/09 with complete resolution of choledocolithiasis Plan: IVF maintenance 75ml/h Cholecystectomy planned once BP stable Pure hypercholesterolemia 05/09/20152017 Pain in limb 05/20/2006 08/24/2017 Other specified disorder of skin 03/11/2006 08/24/2017 Unspecified hereditary and idiopathic peripheral neuropathy 05/27/2005 06/03/2021 Dermatophytosis of nail 05/27/2005 08/25/19 18 documented as of this encounter (statuses as of 06/26/2022) [facility] History of Past illness Narrative* Problem Noted Date Resolved Date History of cholecystectomy 05/16/201608/24 Gallstone (impacted) 05/16/2016 08/24/2017 Choledocholithiasis 05/09/2016 08/24/2017 Overview: RUQ US at [facility] showed biliary stones and sludge with CBD dilation (unclear how dilated) 05/08: ALK 279, AST 492, ALT 249, lipase 115, bilirubin 1.30 05/10 ERCP with biliary sphincterotomy performed 05/09 with complete resolution of choledocolithiasis Plan: IVF maintenance 75ml/h Cholecystectomy planned once BP stable Pure hypercholesterolemia 05/09/20152017 Pain in limb 05/20/2006 08/24/2017 Other specified disorder of skin 03/11/2006 08/24/2017 Unspecified hereditary and idiopathic peripheral neuropathy 05/27/2005 06/03/2021 Dermatophytosis of nail 05/27/2005 08/25/19 18 documented as of this encounter (statuses as of 08/18/2022) [facility] History of Past illness Narrative* Problem Noted Date Resolved Date History of cholecystectomy 05/16/201608/24 Gallstone (impacted) 05/16/2016 08/24/2017 Choledocholithiasis 05/09/2016 08/24/2017 Overview: RUQ US at [facility] showed biliary stones and sludge with CBD dilation (unclear how dilated) 05/08: ALK 279, AST 492, ALT 249, lipase 115, bilirubin 1.30 05/10 ERCP with biliary sphincterotomy performed 05/09 with complete resolution of choledocolithiasis Plan: IVF maintenance 75ml/h Cholecystectomy planned once BP stable Pure hypercholesterolemia 05/09/20152017 Pain in limb 05/20/2006 08/24/2017 Other specified disorder of skin 03/11/2006 08/24/2017 Unspecified hereditary and idiopathic peripheral neuropathy 05/27/2005 06/03/2021 Dermatophytosis of nail 05/27/2005 08/25/19 18 documented as of this encounter (statuses as of 08/21/2022) [facility] History of Past illness Narrative* Problem Noted Date Diagnosed Date Resolved Date History of cholecystectomy 05/16/2016 0 08/24/2017 Gallstone (impacted) 05/16/2016 018 Choledocholithiasis 05/09/2016 08/25/19 18 Overview: RUQ US at [facility] showed biliary stones and sludge with CBD dilation (unclear how dilated) 05/08: ALK 279, AST 492, ALT 249, lipase 115, bilirubin 1.30 05/10 ERCP with biliary sphincterotomy performed 05/09 with complete resolution of choledocolithiasis Plan: IVF maintenance 75ml/h Cholecystectomy planned once BP stable Pure hypercholesterolemia 05/09/2015 Pain in limb 05/20/2006 08/24/2017 Other specified disorder of skin 03/11/2006 08/24/2017 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 05/27/2005 06/03/2021 Dermatophytosis of nail 05/27/2005 07/0 10/2017 documented as of this encounter (statuses as of 10/09/2022) [facility] History of Past illness Narrative* Problem Noted Date Diagnosed Date Resolved Date History of cholecystectomy 05/16/2016 0 08/24/2017 Gallstone (impacted) 05/16/2016 018 Choledocholithiasis 05/09/2016 08/25/19 18 Overview: RUQ US at [facility] showed biliary stones and sludge with CBD dilation (unclear how dilated) 05/08: ALK 279, AST 492, ALT 249, lipase 115, bilirubin 1.30 05/10 ERCP with biliary sphincterotomy performed 05/09 with complete resolution of choledocolithiasis Plan: IVF maintenance 75ml/h Cholecystectomy planned once BP stable Pure hypercholesterolemia 05/09/2015 Pain in limb 05/20/2006 08/24/2017 Other specified disorder of skin 03/11/2006 08/24/2017 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 05/27/2005 06/03/2021 Dermatophytosis of nail 05/27/20050 10/2017 documented as of this encounter (statuses as of 11/22/2022) [facility] History of Past illness Narrative* Problem Noted Date Diagnosed Date Resolved Date History of cholecystectomy 05/16/2016 0 08/24/2017 Gallstone (impacted) 05/16/2016 018 Choledocholithiasis 05/09/2016 08/25/19 18 Overview: RUQ US at [facility] showed biliary stones and sludge with CBD dilation (unclear how dilated) 05/08: ALK 279, AST 492, ALT 249, lipase 115, bilirubin 1.30 05/10 ERCP with biliary sphincterotomy performed 05/09 with complete resolution of choledocolithiasis Plan: IVF maintenance 75ml/h Cholecystectomy planned once BP stable Pure hypercholesterolemia 05/09/2015 Pain in limb 05/20/2006 08/24/2017 Other specified disorder of skin 03/11/2006 08/24/2017 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 05/27/2005 06/03/2021 Dermatophytosis of nail 05/27/2005/0 10/2017 documented as of this encounter (statuses as of 11/27/2022) [facility] History of Past illness Narrative* Problem Noted Date Diagnosed Date Resolved Date History of cholecystectomy 05/16/2016 0 08/24/2017 Gallstone (impacted) 05/16/2016 018 Choledocholithiasis 05/09/2016 08/25/19 18 Overview: RUQ US at [facility] showed biliary stones and sludge with CBD dilation (unclear how dilated) 05/08: ALK 279, AST 492, ALT 249, lipase 115, bilirubin 1.30 05/10 ERCP with biliary sphincterotomy performed 05/09 with complete resolution of choledocolithiasis Plan: IVF maintenance 75ml/h Cholecystectomy planned once BP stable Pure hypercholesterolemia 05/09/2015 Pain in limb 05/20/2006 08/24/2017 Other specified disorder of skin 03/11/2006 08/24/2017 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 05/27/2005 06/03/2021 Dermatophytosis of nail 05/27/20050 10/2017 documented as of this encounter (statuses as of 12/21/2022) [facility] History of Past illness Narrative* Problem Noted Date Diagnosed Date Resolved Date History of cholecystectomy 05/16/2016 0 08/24/2017 Gallstone (impacted) 05/16/2016 018 Choledocholithiasis 05/09/2016 08/25/19 18 Overview: RUQ US at [facility] showed biliary stones and sludge with CBD dilation (unclear how dilated) 05/08: ALK 279, AST 492, ALT 249, lipase 115, bilirubin 1.30 05/10 ERCP with biliary sphincterotomy performed 05/09 with complete resolution of choledocolithiasis Plan: IVF maintenance 75ml/h Cholecystectomy planned once BP stable Pure hypercholesterolemia 05/09/2015 Pain in limb 05/20/2006 08/24/2017 Other specified disorder of skin 03/11/2006 08/24/2017 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 05/27/2005 06/03/2021 Dermatophytosis of nail 05/27/200510/2017 documented as of this encounter (statuses as of 01/15/2023) [facility] History of Past illness Narrative* Problem Noted Date Diagnosed Date Resolved Date History of cholecystectomy 05/16/2016 0 08/24/2017 Gallstone (impacted) 05/16/2016 018 Choledocholithiasis 05/09/2016 08/25/19 18 Overview: RUQ US at [facility] showed biliary stones and sludge with CBD dilation (unclear how dilated) 05/08: ALK 279, AST 492, ALT 249, lipase 115, bilirubin 1.30 05/10 ERCP with biliary sphincterotomy performed 05/09 with complete resolution of choledocolithiasis Plan: IVF maintenance 75ml/h Cholecystectomy planned once BP stable Pure hypercholesterolemia 05/09/2015 Pain in limb 05/20/2006 08/24/2017 Other specified disorder of skin 03/11/2006 08/24/2017 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 05/27/2005 06/03/2021 Dermatophytosis of nail 05/27/200510/2017 documented as of this encounter (statuses as of 05/05/2023) [facility] Diagnosis Controlled type 2 diabetes mellitus with complication, without long-term current use of insulin (HCC)- Primary Essential hypertension, benign Pure hypercholesterolemia Malignant neoplasm of upper-outer quadrant of right breast in female, estrogen receptor negative (HCC) Encounter for screening for osteoporosis Special screening for osteoporosis documented [facility] this encounter [facility] Diagnosis Controlled type 2 diabetes mellitus with complication, without long-term current use of insulin (HCC)- Primary Essential hypertension, benign Pure hypercholesterolemia Malignant neoplasm of upper-outer quadrant of right breast in female, estrogen receptor negative (HCC) Anemia, unspecified type Vitamin D deficiency Unspecified vitamin D deficiency [facility] Diagnosis Type 2 diabetes mellitus with diabetic neuropathy, without long-term current use of insulin (HCC)- Primary [facility] Diagnosis Essential hypertension, benign [facility] Diagnosis Uncontrolled type 2 diabetes mellitus with hyperglycemia (HCC)- Primary Pure hypercholesterolemia Essential hypertension, benign Vitamin D deficiency Unspecified vitamin D deficiency Vitamin B12 deficiency Other B-complex deficiencies Malignant neoplasm of upper-outer quadrant of right breast in female, estrogen receptor negative (HCC) [facility] Diagnosis Controlled type 2 diabetes mellitus with complication, without long-term current use of insulin (HCC) Essential hypertension, benign [facility] Breast lump Lump or mass in breast [facility] Diagnosis Type 2 diabetes mellitus with diabetic neuropathy, without long-term current use of insulin (HCC)- Primary Weight loss, unintentional Loss of weight Pure hypercholesterolemia Vitamin D deficiency Unspecified vitamin D deficiency Vitamin B12 deficiency Other B-complex deficiencies Essential hypertension, benign Controlled type 2 diabetes mellitus with complication, without long-term current use of insulin (HCC) Anemia, unspecified type 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, without long-term current use of insulin (HCC) Malignant neoplasm of upper-outer quadrant of right breast in female, estrogen receptor negative (HCC) [facility] Diagnosis Medicare annual wellness visit, subsequent- Primary Routine general medical examination at a health care facility Acute bilateral thoracic back pain Rib pain Chest pain, unspecified Controlled type 2 diabetes mellitus with complication, without long-term current use of insulin (HCC) Flank pain Abdominal pain, unspecified site Mass of right breast, unspecified quadrant Malignant neoplasm of upper-outer quadrant of right breast in female, estrogen receptor negative (HCC) Vitamin D deficiency Unspecified vitamin D deficiency Vitamin B12 deficiency Other B-complex deficiencies Essential hypertension, benign Pure hypercholesterolemia [facility] Diagnosis Breast cancer 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, right (HCC) Acute bilateral thoracic back pain Rib pain Chest pain, unspecified [facility] Diagnosis Mass of right breast, unspecified quadrant Breast cancer 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, right (HCC) [facility] Diagnosis Acute bilateral thoracic back pain- Primary Rib pain Chest pain, unspecified Flank pain Abdominal pain, unspecified site [facility] Diagnosis Mass of right breast, unspecified quadrant- Primary Malignant neoplasm of upper-outer quadrant of right breast in female, estrogen receptor negative (HCC) Chest wall pain Painful respiration Controlled type 2 diabetes mellitus with complication, without long-term current use of insulin (HCC) Vitamin B12 deficiency Other B-complex deficiencies Essential hypertension, benign Pure hypercholesterolemia Vitamin D deficiency Unspecified vitamin D deficiency documented in this encounter [facility] for referral (narrative)* Diagnostic Procedure Only (Routine) - Closed Specialty Diagnoses / Procedures Referred By Contac t Referred To Contact XR IMAGING Diagnoses Breast cancer 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, right (HCC) Procedures XR RIBS/CHEST 3V AP RIB/OBLS/CXR RIGHT RADEX RIBS UNI W/POSTEROANT CH MINIMUM 3 VIEWS Tiana Griffin MD [address] [place] [address] [place] [address] Referral ID Status Reason Start Date Expiration Date V isits Requested Visits Authorized [id number] Closed Auto-Generate d Referral 10/13/2023 11/11/2024 1 1 * Transition of Care (Routine) - Ref Not Required Specialty Diagnoses / Procedures [facility] To Contact Oncology Diagnoses Breast cancer 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, right (HCC) Procedures CONSULT TO ONCOLOGY Tiana Griffin MD [address] [place] [address] [place] [facility] [place] [address] [place] [address] Referral ID Status Reason Start Date Expiration Date Visits Requested Visits Authorized [id number] Ref Not Required PCP Requested Referral 10/13/2023 10/12/2024 1 1 [facility] for visit Narrative* Diagnostic Procedure Only (Routine) - Closed Specialty Diagnoses / Procedures [facility] To Contact XR IMAGING Diagnoses Breast cancer 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, right (HCC) Procedures XR RIBS/CHEST 3V AP RIB/OBLS/CXR RIGHT RADEX RIBS UNI W/POSTEROANT CH MINIMUM 3 VIEWS Tiana Griffin MD [address] [place] [address] [place] [address] Referral ID Status Reason Start Date Expiration Date V isits Requested Visits Authorized [id number] Closed Auto-Generate d Referral 10/13/2023 11/11/2024 1 1 [facility] Advance Directives Documents on File Type Date Recorded Patient [employer] Expl anation Advance Directive(s) 05/09/2016 8:49 PM Reason for Referral Specialty Diagnoses / Procedures Referred By Contac t Referred To Contact General Surgery Diagnoses Mass of right breast, unspecified quadrant Procedures CONSULT TO GENERAL SURGERY OFFICE/OUTPATIENT NEW HIGH MDM 60 MINUTES Emiliano Pelletier, DO [address] [place] [address] Referral ID Status Reason Start Date Expiration Date Visits Requested Visits Authorized [id number] Authorized PCP Requested Referral 10/05/2023 10/04/2024 1 1 Specialty Diagnoses / Procedures Referred By Contac t Referred To Contact XR IMAGING Diagnoses Rib pain Procedures XR RIBS BILATERAL/CHEST 4V RADEX RIBS BI W/POSTEROANT CH MINIMUM 4 VIEWS Emiliano Pelletier L, DO [address] [place] [address] [place] [address] Referral ID Status Reason Start Date Expiration Date Visits Requested Visits Authorized [id number] New Request Auto-Generat ed Referral 10/05/2023 2024 1 1 Specialty Diagnoses / Procedures Referred By Contac t Referred To Contact XR IMAGING Diagnoses Acute bilateral thoracic back pain Procedures XR THORACIC GENERAL 3V AP/LAT/SWIMMERS RADEX SPINE THORACIC 3 VIEWS Emiliano Pelletier, DO [address] [place] [address] [place] [address] Referral ID Status Reason Start Date Expiration Date Visits Requested Visits Authorized [id number] New Request Auto-Generat ed Referral 10/05/2023 2024 1 1 Specialty Diagnoses / Procedures Referred By Contac t Referred To Contact Pain Management Diagnoses Acute bilateral thoracic back pain Rib pain Flank pain Procedures CONSULT TO PAIN MGT OFFICE/OUTPATIENT NEW HIGH MDM 60 MINUTES Jared Chen, 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.[employer]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 [address] [place] [address] Referral ID Status Reason Start Date Expiration Date Visits Requested Visits Authorized [id number] Authorized PCP Requested Referral 10/16/2023 10/15/2024 1 1 Summary Purpose Family History No Family History Records Found Additional Source Comments Source Comments (unrecognize d section and content) In the event this informatio n is protected by the Federal Confidentiality of Alcohol and Drug Abuse Patient Records regulations: The Federal rules restrict any use of the information to criminally investigate or prosecute any alcohol or drug abuse patient.[facility] the event this information is protected by the Federal Confidentiality of Alcohol and Drug Abuse Patient Records regulations: The Federal rules restrict any use of the information to criminally investigate or prosecute any alcohol or drug abuse patient.[facility] Center[facility] the event this information is protected by the Federal Confidentiality of Alcohol and Drug Abuse Patient Records regulations: The Federal rules restrict any use of the information to criminally investigate or prosecute any alcohol or drug abuse patient.[facility] Center[facility] the event this information is protected by the Federal Confidentiality of Alcohol and Drug Abuse Patient Records regulations: The Federal rules restrict any use of the information to criminally investigate or prosecute any alcohol or drug abuse patient.[facility] Center[facility] the event this information is protected by the Federal Confidentiality of Alcohol and Drug Abuse Patient Records regulations: The Federal rules restrict any use of the information to criminally investigate or prosecute any alcohol or drug abuse patient.[facility] Center[facility] the event this information is protected by the Federal Confidentiality of Alcohol and Drug Abuse Patient Records regulations: The Federal rules restrict any use of the information to criminally investigate or prosecute any alcohol or drug abuse patient.[facility] Center[facility] the event this information is protected by the Federal Confidentiality of Alcohol and Drug Abuse Patient Records regulations: The Federal rules restrict any use of the information to criminally investigate or prosecute any alcohol or drug abuse patient.[facility] Center[facility] the event this information is protected by the Federal Confidentiality of Alcohol and Drug Abuse Patient Records regulations: The Federal rules restrict any use of the information to criminally investigate or prosecute any alcohol or drug abuse patient.[facility] CenterIn the event this information is protected by the Federal Confidentiality of Alcohol and Drug Abuse Patient Records regulations: The Federal rules restrict any use of the information to criminally investigate or prosecute any alcohol or drug abuse patient.[facility] CenterIn the event this information is protected by the Federal Confidentiality of Alcohol and Drug Abuse Patient Records regulations: The Federal rules restrict any use of the information to criminally investigate or prosecute any alcohol or drug abuse patient.[facility] CenterIn the event this information is protected by the Federal Confidentiality of Alcohol and Drug Abuse Patient Records regulations: The Federal rules restrict any use of the information to criminally investigate or prosecute any alcohol or drug abuse patient.[facility] CenterIn the event this information is protected by the Federal Confidentiality of Alcohol and Drug Abuse Patient Records regulations: The Federal rules restrict any use of the information to criminally investigate or prosecute any alcohol or drug abuse patient.[facility] CenterIn the event this information is protected by the Federal Confidentiality of Alcohol and Drug Abuse Patient Records regulations: The Federal rules restrict any use of the information to criminally investigate or prosecute any alcohol or drug abuse patient.[facility] CenterIn the event this information is protected by the Federal Confidentiality of Alcohol and Drug Abuse Patient Records regulations: The Federal rules restrict any use of the information to criminally investigate or prosecute any alcohol or drug abuse patient.[facility] CenterIn the event this information is protected by the Federal Confidentiality of Alcohol and Drug Abuse Patient Records regulations: The Federal rules restrict any use of the information to criminally investigate or prosecute any alcohol or drug abuse patient.[facility] CenterIn the event this information is protected by the Federal Confidentiality of Alcohol and Drug Abuse Patient Records regulations: The Federal rules restrict any use of the information to criminally investigate or prosecute any alcohol or drug abuse patient.[facility] CenterIn the event this information is protected by the Federal Confidentiality of Alcohol and Drug Abuse Patient Records regulations: The Federal rules restrict any use of the information to criminally investigate or prosecute any alcohol or drug abuse patient.[facility] CenterIn the event this information is protected by the Federal Confidentiality of Alcohol and Drug Abuse Patient Records regulations: The Federal rules restrict any use of the information to criminally investigate or prosecute any alcohol or drug abuse patient.[facility] CenterIn the event this information is protected by the Federal Confidentiality of Alcohol and Drug Abuse Patient Records regulations: The Federal rules restrict any use of the information to criminally investigate or prosecute any alcohol or drug abuse patient.[facility] CenterIn the event this information is protected by the Federal Confidentiality of Alcohol and Drug Abuse Patient Records regulations: The Federal rules restrict any use of the information to criminally investigate or prosecute any alcohol or drug abuse patient.[facility] CenterIn the event this information is protected by the Federal Confidentiality of Alcohol and Drug Abuse Patient Records regulations: The Federal rules restrict any use of the information to criminally investigate or prosecute any alcohol or drug abuse patient.[facility] CenterIn the event this information is protected by the Federal Confidentiality of Alcohol and Drug Abuse Patient Records regulations: The Federal rules restrict any use of the information to criminally investigate or prosecute any alcohol or drug abuse patient.[facility] CenterIn the event this information is protected by the Federal Confidentiality of Alcohol and Drug Abuse Patient Records regulations: The Federal rules restrict any use of the information to criminally investigate or prosecute any alcohol or drug abuse patient.[facility] CenterIn the event this information is protected by the Federal Confidentiality of Alcohol and Drug Abuse Patient Records regulations: The Federal rules restrict any use of the information to criminally investigate or prosecute any alcohol or drug abuse patient.[facility] CenterIn the event this information is protected by the Federal Confidentiality of Alcohol and Drug Abuse Patient Records regulations: The Federal rules restrict any use of the information to criminally investigate or prosecute any alcohol or drug abuse patient.[facility] CenterIn the event this information is protected by the Federal Confidentiality of Alcohol and Drug Abuse Patient Records regulations: The Federal rules restrict any use of the information to criminally investigate or prosecute any alcohol or drug abuse patient.[facility] CenterIn the event this information is protected by the Federal Confidentiality of Alcohol and Drug Abuse Patient Records regulations: The Federal rules restrict any use of the information to criminally investigate or prosecute any alcohol or drug abuse patient.[facility] CenterIn the event this information is protected by the Federal Confidentiality of Alcohol and Drug Abuse Patient Records regulations: The Federal rules restrict any use of the information to criminally investigate or prosecute any alcohol or drug abuse patient.[facility] Reason for Visit (unrecogniz ed section and content) Reason Comments Recheck Reason Comments Results Reason Comments 6 Month Exam Reason Onset Date Comments Population Health Navigation Outreach 12/09/2021 [place] Care Gaps Reason Onset Date Comments Refill Request 05/27/2022 Reason Onset Date Comments Population Health Navigation Outreach 06/25/2022 [place] Care Gaps Reason Comments Medication Problem Reason Onset Date Comments Population Health Navigation Outreach 10/09/2022 Navigator [place] care gap outreach Reason Onset Date Comments Ankle Injury 08/15/2022 Reason Onset Date Comments Refill Request 11/26/2022 Reason Onset Date Comments Population Health Navigation Outreach 01/15/2023 Navigator [place] care gap outreach Reason Onset Date Comments Population Health Navigation Outreach 05/05/2023 [place] Annual Wellness Visit Reason Comments Medicare Wellness Exam Reason Comments New Patient Reason Comments Follow Up Mass of rt breast Specialty Diagnoses / Procedures Referred By Dottie t Referred To Contact General Surgery Diagnoses Mass of right breast, unspecified quadrant Procedures CONSULT TO GENERAL SURGERY OFFICE/OUTPATIENT NEW HIGH MDM 60 MINUTES Emiliano Pelletier, DO [address] [place] [address] Referral ID Status Reason Start Date Expiration Date V isits Requested Visits Authorized [id number] Closed PCP Requested Referral 10/05/2023 10/04/2024 1 1 Reason Comments Patient Update Reason Comments Results Reason Comments Future Appointment Left Voice Mail Care Teams (unrecognized sec tion and content) Environmental Technical Officer Relationship Specialty Start Date End Date Emiliano Pelletier, DO [address] [place] [address] PCP - General Family Practice 08/22/13 Environmental Technical Officer Relationship Specialty Start Date End Date Emiliano Pelletier, DO [address] [place] [address] PCP - General Family Practice 08/22/13 Environmental Technical Officer Relationship Specialty Start Date End Date Emiliano Pelletier, DO [address] [place] [address] PCP - General Family Medicine 08/22/13 Environmental Technical Officer Relationship Specialty Start Date End Date Emiliano Pelletier, DO [address] [place] [address] PCP - General Family Medicine 08/22/13 Environmental Technical Officer Relationship Specialty Start Date End Date Emiliano Pelletier, DO [address] [place] [address] PCP - General Family Medicine 08/22/13 Environmental Technical Officer Relationship Specialty Start Date End Date Emiliano Pelletier, DO [address] [place] [address] PCP - General Family Medicine 08/22/13 Environmental Technical Officer Relationship Specialty Start Date End Date Emiliano Pelletier, DO [address] [place] [address] PCP - General Family Medicine 08/22/13 Environmental Technical Officer Relationship Specialty Start Date End Date Emiliano Pelletier, DO [address] [place] [address] PCP - General Family Medicine 08/22/13 Environmental Technical Officer Relationship Specialty Start Date End Date Emiliano Pelletier, [address] [place] [address] PCP - General Family Medicine 08/22/13 Environmental Technical Officer Relationship Specialty Start Date End Date Emiliano Pelletier, [address] [place] [address] PCP - General Family Medicine 08/22/13 Environmental Technical Officer Relationship Specialty Start Date End Date Emiliano Pelletier DO [address] [place] [address] PCP - General Family Medicine 08/22/13 Environmental Technical Officer Relationship Specialty Start Date End Date Emiliano Pelletier DO [address] [place] [address] PCP - General Family Medicine 08/22/13 Environmental Technical Officer Relationship Specialty Start Date End Date Emiliano Pelletier DO [address] [place] [address] PCP - General Family Medicine 08/22/13 Environmental Technical Officer Relationship Specialty Start Date End Date Emiliano Pelletier DO [address] [place] [address] PCP - General Family Medicine 08/22/13 Environmental Technical Officer Relationship Specialty Start Date End Date Emiliano Pelletier DO [address] [place] [address] PCP - General Family Medicine 08/22/13 Environmental Technical Officer Relationship Specialty Start Date End Date Emiliano Pelletier DO [address] [place] [address] PCP - General Family Medicine 08/22/13 Environmental Technical Officer Relationship Specialty Start Date End Date Emiliano Pelletier DO [address] [facility] [place] [address] PCP - General Family Medicine 08/22/13 Environmental Technical Officer Relationship Specialty Start Date End Date Emiliano Pelletier DO [address] [facility] [place] [address] PCP - General Family Medicine 08/22/13 Environmental Technical Officer Relationship Specialty Start Date End Date Emiliano Pelletier DO [address] [place] [address] PCP - General Family Medicine 08/22/13 Environmental Technical Officer Relationship Specialty Start Date End Date Emiliano Pelletier DO [address] [facility] [place] [address] PCP - General Family Medicine 08/22/13 Environmental Technical Officer Relationship Specialty Start Date End Date Emiliano Pelletier DO [address] [facility] [place] [address] PCP - General Family Medicine 08/22/13 Environmental Technical Officer Relationship Specialty Start Date End Date Emiliano Pelletier DO [address] [facility] [place] [address] PCP - General Family Medicine 08/22/13 Environmental Technical Officer Relationship Specialty Start Date End Date Emiliaon Pelletier DO [address] [facility] [place] [address] PCP - General Family Medicine 08/22/13 Environmental Technical Officer Relationship Specialty Start Date End Date Emiliano Pelletier DO [address] [facility] [place] [address] PCP - General Family Medicine 08/22/13 Environmental Technical Officer Relationship Specialty Start Date End Date Emiliano Pelletier DO [address] [facility] [address] PCP - General Family Medicine 08/22/13 INFORMATION SOURCE (unrecogn ized section and content) DATE CREATED AUTHOR 12/10/2023 [facility] FOR RECORDS PERTAINING TO PATIENTS WHO ARE OR HAVE BEEN ENROLLED IN A CHEMICAL DEPENDENCY/SUBSTANCEABUSE PROGRAM, SOME INFORMATION MAY BE OMITTED. This clinical summary was aggregated from multiple sources. Caution should be exercised in using it in the provision of clinical care. This summary normalizes information from multiple sources, and as a consequence, information in this document may materially change the coding, format and clinical context of patient data. In addition, data may be omitted in some cases. CLINICAL DECISIONS SHOULD BE BASED ON THE PRIMARY CLINICAL RECORDS. [employer] provides no warranty or guarantee of the accuracy or completeness of information in this document.
[2023-12-14 23:00] LABS: Reflex Troponin-HS? (from REC) Y
[2023-12-14] MEDS: oxyCODONE 5 MG Tablet PO (23:12)
[2023-12-14] MEDS: tiZANidine HCl 2 MG Tablet PO (23:14)
[2023-12-14] MEDS: Acetaminophen 500 MG Tablet 1000 MG PO (23:16)
[2023-12-14] MEDS: Enoxaparin 40 MG/0.4 ML Syringe SC (23:21)
[2023-12-14] MEDS: Senna/Docusate Sodium 1 Tablet 2 TABLET PO (23:21)
[2023-12-14] MEDS: Lisinopril 20 MG Tablet PO (23:24)
[2023-12-14] MEDS: Lactated Ringers 1,000 ML 100 ML IV (23:32)
[2023-12-14 23:36] LABS: Troponin-I HS 45 pg/mL (3.0-54.0)
[2023-12-14 23:57] LABS: Bedside Glucose 151 mg/dL (74-106)
[2023-12-15] MEDS: Lactulose 20 GM/30 ML UDC PO (01:13)
[2023-12-15] MEDS: HYDROmorphone 0.5 MG/0.5 ML SYRINGE IV ×3 (01:43→22:23)
[2023-12-15 05:46] VITALS: BP 135/66; PULSE 73; RESP 16; TEMP 36.9; O2SAT 96
[2023-12-15] MEDS: Acetaminophen 500 MG Tablet 1000 MG PO ×3 (05:53→22:19)
[2023-12-15 06:44] LABS: Bedside Glucose 122 mg/dL (74-106)
[2023-12-15 07:23] VITALS: O2SAT 98
[2023-12-15 07:35] LABS: Absolute Lymphocyte Count 2.08 X10^3/uL (0.83-4.51); Absolute Neutrophil Count 2.6 X10^3/uL (2.0-7.7); Basophil# 0.01 X10^3/uL; Basophil% 0.2 % (0-1); Eosinophil# 0.05 X10^3/uL; Eosinophils% 0.9 % (0-5); Hematocrit 29.9 % (37-47); Hemoglobin 9.4 g/dL (12.0-15.0); Lymphocyte # 2.08 X10^3/ul (0.83-4.51); Lymphocyte % 39.3 % (19-41); Mean Corp Hgb Conc 31.4 g/dL (32-36); Mean Corpuscular Hgb 26.6 pg (27.0-32.0); Mean Corpuscular Volume 84.5 fL (81-99); Mean Platelet Vol. 10.5 fl (6.2-12.0); Monocyte# 0.58 X10^3/uL; NRBC Flagged by Analyzer 0 % (0-5); Neutrophil # 2.55 X10^3/uL (2.7-7.7); Neutrophil % 48.2 % (47-70); Platelet Count 292 K/mm3 (150-450); RBC Distribution Width CV 15.2 % (11.6-14.6); RBC Distribution Width SD 46.6 fl (35.1-43.9); Red Blood Count 3.54 M/mm3 (4.2-5.4); White Blood Count 5.3 K/mm3 (4.4-11.0)
[2023-12-15] MEDS: 0.9% Saline Lock 10 ML Syringe IV ×3 (07:47→22:19)
[2023-12-15] MEDS: Ondansetron 4 MG/2 ML Vial IV (07:47)
[2023-12-15 07:57] LABS: Anion Gap 8 (5-15); BUN 12 mg/dL (7-18); BUN/Creat Ratio 16.4 RATIO (10-20); Calcium,Total 9.1 mg/dL (8.5-10.1); Chloride 107 mmol/L (98-107); Creatinine, Serum 0.73 mg/dL (0.55-1.02); EST Glomerular Filtration Rate 82 mL/min (>60); Est Glom Filt Rate - Afr Amer 99 mL/min (>60); Estimated Creatinine Clearance 50.05 ml/min; Glucose 138 mg/dL (74-106); Phosphorus 4.3 mg/dL (2.5-4.9); Potassium 3.1 mmol/L (3.5-5.1); Sodium Level 140 mmol/L (136-145)
[2023-12-15 08:20] VITALS: BP 147/61; PULSE 70; RESP 16; TEMP 36.6; O2SAT 96
[2023-12-15] MEDS: Aspirin 81 MG TAB.CHEW PO (08:31)
--- NOTE | 2023-12-15 09:05 | MRI_ITS ---
STUDY: MRI LUMBAR SPINE WITH AND WITHOUT CONTRAST REASON FOR EXAM: Female, 78 years old. breast cancer with mets to the spine TECHNIQUE: Standardized fat and water weighted pulse sequences were obtained in the sagittal and axial planes. 10cc clariscan was administered for the contrast portion of the examination. COMPARISON: None FINDINGS: T12-L1: Normal endplates. Normal disc height, desiccation and normal morphology. Normal bilateral facet joints. Normal central canal and bilateral lateral recesses. Normal bilateral intervertebral neural foramina. Normal lumbar lordosis. There is no substantial scoliosis. Normal conus medullaris that terminates at L1 L1-2: Mild anterior endplate spurring. Normal disc height, desiccation and normal morphology. Normal bilateral facet joints. Normal central canal and bilateral lateral recesses. Normal bilateral intervertebral neural foramina. L2-3: Normal endplates. Normal disc height, desiccation and mild annular bulge with left posterolateral/foraminal disc protrusion. Bilateral facet arthropathy. Mild narrowing of the central canal. Mild narrowing of the left lateral recess. Moderate right neural foraminal stenosis and more severe narrowing on the left L3-4: Normal endplates. Normal disc height, desiccation and minor annular bulge.. Facet arthropathy and thickening of ligamenta flava. Normal central canal and bilateral lateral recesses. Moderate bilateral neural foraminal stenosis. L4-5: Normal endplates. Normal disc height, desiccation and minor annular bulge. Facet arthropathy and thickening of ligamenta flava. Normal central canal and bilateral lateral recesses. Moderate bilateral neural foraminal stenosis. L5-S1: Normal endplates. Normal disc height, desiccation mild annular bulge. Facet arthropathy and thickening of ligamenta flava more pronounced on the right Normal central canal and bilateral lateral recesses. Moderate left neural foraminal stenosis and more severe narrowing on the right.. Normal visualized sacral ala. Normal visualized paraspinous soft tissue structures. No enhancing lesions following contrast administration MRI/Spine Lumbar W/WO Contrast IMPRESSION: No evidence for acute fracture or subluxation. Spondylosis and multilevel spinal stenosis secondary to disc disease and bony hypertrophy No enhancing lesions to suggest metastatic disease Findings as above Electronically Signed: Kwaku Carrillo MD at 20:54 EDT Reading Location ID and State: [facility] / [place] Tel , Service support ,
--- NOTE | 2023-12-15 09:05 | MRI_ITS ---
STUDY: MRI CERVICAL SPINE WITH AND WITHOUT CONTRAST REASON FOR EXAM: Female, 78 years old. breast cancer with mets to the spine TECHNIQUE: Standardized fat and water weighted pulse sequences were obtained in the sagittal and axial following administration of IV 10cc clariscan. COMPARISON: None FINDINGS: Normal foramen magnum and brainstem-cervical cord junction. Normal craniovertebral junction. Normal anterior atlantoaxial articulation. Normal odontoid process. Normal cervical lordosis. Normal vertebral bodies and posterior osseous elements. C2-3: Normal endplates. Normal disc height, signal and morphology. Normal central canal and intervertebral neural foramina. C3-4: Normal endplates. Normal disc height, signal and morphology. Normal central canal and intervertebral neural foramina. C4-5: Normal endplates. Normal disc height, signal and tiny central disc protrusion. Normal central canal. Moderate right neural foraminal stenosis secondary to bony hypertrophy C5-6: Normal endplates. Normal disc height, signal and tiny central disc protrusion.. Normal central canal. Moderate to severe left neuroforaminal stenosis secondary to bony hypertrophy C6-7: Normal endplates. Normal disc height, signal and minimal bulging disc osteophyte complex. Normal central canal. Mild to moderate bilateral neural foraminal stenosis secondary to bony hypertrophy. C7-T1: Normal endplates. Normal disc height, signal and morphology. Normal central canal and intervertebral neural foramina. Normal cervical cord. Normal visualized soft tissue structures. MRI/Spine Cervical W/WO Contrast IMPRESSION: No evidence for acute fracture or subluxation.. Mild multilevel disc disease and neural foraminal stenosis secondary to bony encroachment No cord compression or focal cord lesion. No enhancing lesions following contrast administration to suggest metastatic disease Electronically Signed: Kwaku Carrillo MD at 20:34 EDT ,
--- NOTE | 2023-12-15 09:05 | MRI_ITS ---
STUDY: MRI THORACIC SPINE WITH AND WITHOUT CONTRAST REASON FOR EXAM: Female, 78 years old. breast cancer with mets to the spine TECHNIQUE: IV 10ml clariscan was administered for the contrast portion of the examination. COMPARISON: None. FINDINGS: Normal kyphosis of the thoracic spine. There is no substantial scoliosis. There is a tiny central disc protrusion at T6-7 mildly narrowing the central canal and impinging upon the cord . There is mild wedging of superior endplate of T9 on the right. There is low signal intensity within the vertebral body and posterior neural arch on the right as well as the right rib on T1 which increases on T2 and STIR imaging sequences and demonstrates enhancement following contrast administration which may be consistent with metastatic disease. There is epidural tumor in the spinal canal on the right extending from anterior to posterior as well as superiorly posterior to T8 displacing and severely compressing the spinal cord towards the left and anteriorly and occluding the right nerve root foramen at T8-9 tiny central disc protrusion.. There is also involvement of the left lamina and proximal spinous process Normal visualized thoracic cord. Normal conus medullaris that terminates at L1 MRI/Spine Thoracic W/WO Contrast IMPRESSION: Findings consistent with extensive intramedullary bone marrow lesion involving the T9 vertebral body more severe on the right with involvement of the posterior neural arch also more severe on the right with epidural tumor extension severely compressing and displacing the spinal cord anteriorly and towards the left.. This may be consistent with bone metastasis Tiny central disc protrusion at T6-7 mildly narrowing the central canal impinging upon the cord Electronically Signed: Kwaku Carrillo MD at 20:47 EDT ,
[2023-12-15] MEDS: Cyanocobalamin 500 MCG Tablet 1000 MCG PO (10:20)
[2023-12-15] MEDS: Ferrous Sulfate 325 MG Tablet PO (10:20)
[2023-12-15] MEDS: Polyethylene Glycol 3350 17 GM PACKET PO (10:21)
[2023-12-15] MEDS: Pantoprazole Sodium 40 MG Tablet PO (10:22)
[2023-12-15] MEDS: Lisinopril 20 MG Tablet PO ×2 (10:22→22:20)
[2023-12-15] MEDS: Senna/Docusate Sodium 1 Tablet 2 TABLET PO ×2 (10:22→22:19)
[2023-12-15] MEDS: tiZANidine HCl 2 MG Tablet 4 MG PO ×2 (10:30→22:23)
[2023-12-15] MEDS: dexAMETHasone 4 MG/ML Vial IV ×2 (10:56→22:19)
--- NOTE | 2023-12-15 11:28 | RAO.OV_ITS ---
Intake Vital Signs 09/30/22 16:55 12/14/23 12:31 12/14/23 15:34 12/14/23 17:08 12/14/23 19:00 12/14/23 20:39 12/14/23 21:00 12/14/23 22:11 12/14/23 22:14 12/15/23 05:46 12/15/23 07:23 12/15/23 08:20 12/15/23 11:31 Height 5 ft 4 in 5 ft 4 in 5 ft 4.17 in 5 ft 4.17 in Weight: 125 lb 0.034 oz BMI 21.3 BP 186/100 H 180/71 H 152/106 H 196/77 H 163/75 H 165/65 H 164/80 H 135 /66 H 147/61 H Position Semi-Fowlers Semi-Fowlers Semi-Fowlers Respiration 20 H 24 H 17 18 17 18 18 16 16 Pulse 82 82 84 79 79 82 81 73 70 Temp 97.2 F L 98.8 F 98.2 F 98.4 F 97.8 F Pulse Oximetry (%) 100 95 95 95 95 100 96 98 96 Intake Visit Reasons: BACK PAIN, CANCER PAIN Chief Complaint: Acute cholecystitis Allergies acetaminophen (From Vicodin) Adverse Reaction (Verified 12/14/23 12:38) Vomiting hydrocodone bitartrate (From Vicodin) Adverse Reaction (Verified 12/14/23 12:38) Vomiting Medications ?Medication ?Instructions ?Recorded ?Confirmed ?Type aspirin 81 mg chewable tablet 81 mg PO DAILY@0800 prophylaxis 01/01/13 12/14/23 History cyanocobalamin (vitamin B-12) 1,000 mcg PO DAILY vitamin 01/01/13 12/14/23 History 1,000 mcg/mL oral drops (Vitamin B-12) [id number]-Pm-spfb-minerals 1 ea PO DAILY 09/23/17 12/14/23 History (Multiple Vitamin, Womens tablet) ibuprofen 600 mg tablet 600 mg PO Q8H PRN PRN pain #20 03/08/22 12/14/23 Rx TABLETS tramadol 50 mg tablet 50 mg PO Q4H PRN PRN Pain 3 days 03/08/22 12/14/23 Rx #20 tabs enalapril maleate 20 mg tablet 20 mg PO BID BP 12/14/23 12/14/23 History ferrous sulfate 140 mg (45 mg 140 mg PO DAILY SUPPLEMENT 12/14/23 12/14/23 History iron) tablet,extended release (Slow Release Iron) meloxicam 15 mg tablet 15 mg PO DAILY PRN pain 12/14/23 12/14/23 History metformin 1,000 mg tablet 1,000 mg PO BID DM 12/14/23 12/14/23 History oxycodone 5 mg tablet 5 mg PO Q8H PRN PRN severe pain 12/14/23 12/14/23 History Home Medications Acetaminophen (Acetaminophen 500 Mg Tablet) 1,000 mg PO Q8 [facility] Last Admin: 12/15/23 05:53 Dose: 1,000 mg Aspirin (Aspirin 81 Mg Tab.Chew) 81 mg PO DAILY@0800 [facility] Last Admin: 12/15/23 08:31 Dose: 81 mg Bisacodyl (Bisacodyl 10 Mg Suppository) 10 mg RC DAILY [facility] Stop: 12/17/23 10:01 Last Admin: 12/15/23 10:22 Dose: Not Given Cyanocobalamin (Cyanocobalamin 500 Mcg Tablet) 1,000 mcg PO DAILY [facility] Last Admin: 12/15/23 10:20 Dose: 1,000 mcg Dexamethasone Sodium Phosphate (Dexamethasone 4 Mg/Ml Vial) 4 mg IV Q12 [facility] Last Admin: 12/15/23 10:56 Dose: 4 mg Enoxaparin Sodium (Enoxaparin 40 Mg/0.4 Ml Syringe) 40 mg SC 2200 [facility] Last Admin: 12/14/23 23:21 Dose: 40 mg Ferrous Sulfate (Ferrous Sulfate 325 Mg Tablet) 325 mg PO DAILY [facility] Last Admin: 12/15/23 10:20 Dose: 325 mg Glucagon (Glucagon 1 Mg/Ml Syringe) 1 mg IM X1 PRN; Protocol PRN Reason: Hypoglycemia Hydromorphone HCl (Hydromorphone 0.5 Mg/0.5 Ml Syringe) 0.5 - 1 mg IV Q3H PRN PRN PRN Reason: Pain Score 4-10 or Pre PT/OT Last Admin: 12/15/23 01:43 Dose: 0.5 mg Sodium Chloride () 500 mls @ 15 mls/hr IV .[id number] PRN PRN Reason: Saline Flush Sodium Chloride () 500 mls @ 15 mls/hr IV .[id number] PRN PRN Reason: Additional IVPB Infusion Dextrose (Dextrose 10%-Water) 250 mls @ 0 mls/hr IV .Q0M PRN; Protocol PRN Reason: HYPOGLYCEMIA Insulin Human Lispro (Insulin Lispro 100 Unit/Ml Insuln.Pen) 0 unit SC ACHS [facility]; Protocol Last Admin: 12/15/23 05:56 Dose: Not Given Lisinopril (Lisinopril 20 Mg Tablet) 20 mg PO BID [facility]; Protocol Last Admin: 12/15/23 10:22 Dose: 20 mg Ondansetron HCl (Ondansetron 4 Mg/2 Ml Vial) 4 mg IV Q6H PRN PRN Reason: NAUSEA/VOMITING Last Admin: 12/15/23 07:47 Dose: 4 mg Pantoprazole Sodium (Pantoprazole Sodium 40 Mg Tablet) 40 mg PO DAILY [facility] Last Admin: 12/15/23 10:22 Dose: 40 mg Polyethylene Glycol (Polyethylene Glycol 3350 17 Gm Packet) 17 gm PO DAILY [facility] Last Admin: 12/15/23 10:21 Dose: 17 gm Senna/Docusate Sodium (Senna/Docusate Sodium 1 Tablet) 2 tablet PO BID [facility] Last Admin: 12/15/23 10:22 Dose: 2 tablet Sodium Chloride (0.9% Saline Lock 10 Ml Syringe) 10 - 40 ml IV UD PRN PRN Reason: SALINE FLUSH Last Admin: 12/15/23 10:56 Dose: 10 ml Tizanidine HCl (Tizanidine Hcl 2 Mg Tablet) 4 mg PO Q8H PRN PRN PRN Reason: Muscle Spasms/Musculoskeletal Pain Last Admin: 12/15/23 10:30 Dose: 4 mg Tramadol HCl (Tramadol 50 Mg Tablet) 50 mg PO Q4H PRN PRN PRN Reason: Pain Discontinued Medications Sodium Chloride () 500 mls @ 1,000 mls/hr IV .Q30M [facility]; Protocol Stop: 12/14/23 16:14 Last Infusion: 12/14/23 17:56 Dose: Infused Lactated Ringer's () 1,000 mls @ 100 mls/hr IV .Q10H [facility]; Protocol Stop: 12/15/23 08:27 Last Admin: 12/14/23 23:32 Dose: 100 mls/hr Lactulose (Lactulose 20 Gm/30 Ml Udc) 20 gm PO X1 ONE Stop: 12/15/23 00:46 Last Admin: 12/15/23 01:13 Dose: 20 gm Morphine Sulfate (Morphine 4 Mg/Ml Syringe) 4 mg IV X1 ONE Stop: 12/14/23 15:37 Last Admin: 12/14/23 16:06 Dose: 4 mg Morphine Sulfate (Morphine 4 Mg/Ml Syringe) 4 mg IV X1 ONE Stop: 12/14/23 19:12 Last Admin: 12/14/23 19:28 Dose: 4 mg Ondansetron HCl (Ondansetron 4 Mg/2 Ml Vial) 4 mg IV X1 ONE Stop: 12/14/23 15:37 Last Admin: 12/14/23 16:06 Dose: 4 mg Ondansetron HCl (Ondansetron 4 Mg/2 Ml Vial) 4 mg IV X1 ONE Stop: 12/14/23 19:12 Last Admin: 12/14/23 19:28 Dose: 4 mg Oxycodone HCl (Oxycodone 5 Mg Tablet) 2.5 - 5 mg PO Q4H PRN PRN PRN Reason: Pain Score 4-10 Last Admin: 12/14/23 23:12 Dose: 5 mg Tizanidine HCl (Tizanidine Hcl 2 Mg Tablet) 2 mg PO Q8H PRN PRN PRN Reason: Muscle Spasms/Musculoskeletal Pain Last Admin: 12/14/23 23:14 Dose: 2 mg Have you fallen in the past year?: No PFSH PFS Medical History (Updated 12/15/23 @ 11:[address] Hang Joaquin, DO) Hypertension Breast cancer Diabetes Home Medications ?Medication ?Instructions ?Recorded ?Last Taken ?Type aspirin 81 mg chewable tablet 81 mg PO DAILY@0800 prophylaxis 01/01/13 1 Day Ago History ~05/07/16 cyanocobalamin (vitamin B-12) 1,000 mcg PO DAILY vitamin 01/01/13 Unknown History 1,000 mcg/mL oral drops (Vitamin B-12) [id number]-Wu-wfbv-minerals 1 ea PO DAILY 09/23/17 Unknown History (Multiple Vitamin, Womens tablet) ibuprofen 600 mg tablet 600 mg PO Q8H PRN PRN pain #20 03/08/22 Unknown Rx TABLETS tramadol 50 mg tablet 50 mg PO Q4H PRN PRN Pain 3 days 03/08/22 Unknown Rx #20 tabs enalapril maleate 20 mg tablet 20 mg PO BID BP 12/14/23 Unknown History ferrous sulfate 140 mg (45 mg 140 mg PO DAILY SUPPLEMENT 12/14/23 Unknown History iron) tablet,extended release (Slow Release Iron) meloxicam 15 mg tablet 15 mg PO DAILY PRN pain 12/14/23 Unknown History metformin 1,000 mg tablet 1,000 mg PO BID DM 12/14/23 Unknown History oxycodone 5 mg tablet 5 mg PO Q8H PRN PRN severe pain 12/14/23 Unknown History Allergy/AdvReac Type Severity Reaction Status Date / Time acetaminophen (From Vicodin) AdvReac Vomiting Verified 12/14/23 12:38 hydrocodone bitartrate (From AdvReac Vomiting Verified 12/14/23 12:38 Vicodin) Surgical History History of coronary artery bypass graft Social History household members: family Smoking Status: Former smoker Diagnosis: Magui Jimenez is a 78 year-old female reportedly diagnosed with breast cancer s tatus post biopsy of the right breast in 2020 with [facility] who pursued no treatment and has had progressively worsening pain particularly in the right side of her back and shoulder and also has had deconditioning and more fatigue as well as generalized weakness and weight loss.? She was admitted to the hospital yesterday and CTA chest and CT abdomen/pelvis were completed which demonstrate evidence for a very large right breast mass, potentially a liver metastasis, a very large extent of destructive lesion at T9 posterior rib with invasion into the spinal canal. History of Present Illness: 2020: breast biopsy at [facility].? Pathology not available at this time 12/14/2023: Completed CT abdomen/pelvis with contrast.? This demonstrated a lytic destructive lesion at the T9 level consistent with metastasis.? Probable small hepatic metastasis which may be further evaluated with MRI.? Large right breast mass noted but not fully imaged. 12/06/2023: Patient completed CTA chest.? This demonstrated no evidence of PE or abnormality in the vascular system.? There appears to be a right breast mass with enlarged axillary lymph nodes in the right, scapular metastasis and extensive metastasis at T9 with probable spinal canal invasion of tumor, MRI with contrast will be more helpful to definitively evaluate. 12/15/2023: Patient presented to the emergency room with history of worsening right-sided pain, breast pain, back pain.? Evidently has a diagnosis of breast cancer dating back to 2020 and has not had any treatment.? She has been taking Tylenol and oxycodone, she has had about a 15 pound unintentional weight loss and not eating or drinking well. Radiation Treatment History: No prior history of radiation therapy. No pacemaker. No diagnosis of radiosensitizing comorbidity. Interval History: Patient was seen in her hospital bed. She was admitted to the hospital late last night with increasing pain particularly in her right back and shoulder, denied other sites of pain. Pain is about 10/10 may be somewhat improved since being hospitalized. She is now taking pain medication as well as Decadron. She denies having focal weakness but does report generalized feeling of weakness. She reports being able to ambulate at home but since being here she has been using only a walker to get up. She has had an unintentional 15 pound weight loss over the last couple of months and has decreased intake. She denies headaches, vision changes, nausea/vomiting, cough, shortness of breath, chest pain. She does report that the right breast mass occasionally causes discomfort but she does not have bleeding or oozing/discharge. She believes that she has skin nodules now near the right breast mass. She does report constipation for about 4 days, denies leakage of stool or incontinence. She denies difficulty with urination including leakage, incontinence, frequency, dysuria, hematuria. At home she lives with her son and did require some assistance but was able to do most of her ADLs. She denies have other problems or concerns at this time. Review of Systems: A 12-point review of systems was completed and was negative except for what is noted in the HPI/Interval History and by the nurse. Physical Exam: Weight: 125 lbs ECO KARNOFSKY SCORE: 60% CONSTITUTIONAL: Well-developed, well-nourished, and in no apparent distress. NECK: Supple, no thyromegaly, and non-tender. Trachea midline. No cervical or supraclavicular adenopathy noted. CARDIAC: Regular rate and rhythm. Normal S1, S2. No murmurs, rubs, or gallops. PULMONARY/CHEST: Lungs are clear to auscultation and percussion bilaterally. No wheezes, rhonchi, or crackles noted. No increased work of breathing. BREAST: Right breast large and swollen, very firm with several small skin nodules extending into the axilla. BACK: Straight and aligned. No CVA tenderness. Tenderness in mid spine to the right and in right scapular area, otherwise axial skeleton non-tender to percussion. NEUROLOGICAL EXAM: Alert and oriented x 3. Answers questions and follows commands appropriately. Cranial nerves II through XII are grossly intact. No focal neurological deficit. Speech is fluent. Muscle strength is 5/5 in all muscle groups. Gait and posture without abnormality. PSYCHIATRIC: Appropriate mood and affect for the clinical situation. Imaging: As per HPI Laboratory Data: CBC and CMP unremarkable Assessment & Plan Assessment/Plan (1) Cancer related pain: (2) Metastatic bone tumor: PLAN: Plan Assessment: Magui Jimenez is a 78 year-old female reportedly diagnosed with breast cancer status post biopsy of the right breast in 2020 with [facility] who pursued no treatment and has had progressively worsening pain particularly in the right side of her back and shoulder and also has had deconditioning and more fatigue as well as generalized weakness and weight loss.? She was admitted to the hospital yesterday and CTA chest and CT abdomen/pelvis were completed which demonstrate evidence for a very large right breast mass, potentially a liver metastasis, a very large extent of destructive lesion at T9 posterior rib with invasion into the spinal canal. Plan: Patient was seen in the hospital, she is admitted for uncontrollable pain particularly in the right shoulder and right mid back. She reports having a history of breast cancer diagnosed in 2020 after the right breast was biopsied and declined all treatment at that time. We did review the imaging studies including CTA chest as well as CT abdomen/pelvis. Upon my review there appears to be a very large breast mass partially visualized on the scan with swelling and soft tissue edema in the right breast as well as axillary adenopathy on the right side. She also has what appears to be a bone metastasis involving the scapula on the right and a very large invasive mass involving the posterior aspect of the ninth rib invading into what appears to be T9 with extensive abnormality throughout the bone and into the spinal canal. She does not have any clear neurologic symptoms from this mass but does have some spasm in the right abdomen which may be related, she has generalized weakness and numbness in the posterior lower extremities which does not appear to be related, no focal weakness. The imaging also demonstrates a small liver lesion which may represent metastatic disease but it is unclear, there does not appear to be any other metastatic disease identified. We discussed treatment management including potential use of systemic therapy and hormone therapy, her pathology is not available for review had has been requested urgently, is unclear if she has estrogen/progesterone/HER2 positive or negative disease. We also focused quite a bit on palliative radiation therapy to improve quality of life particular at the right scapula and the T9 disease. Given the extreme amount of disease at T9 with apparent invasion into the spinal canal MRI has been ordered and will be completed later today and we have started her on Decadron 4 mg twice daily. We discussed that generally we would want neurosurgical evaluation to see if decompression at this level and removal of intracanal disease prior to radiation would be beneficial. We also reviewed the potential use of palliative radiation therapy without surgery and how this may offer less disease control in this area but may improve her pain and quality of life. Overall she is fairly overwhelmed with the decision making process and would like to think about things and further discuss later today or tomorrow. I did explain the need for fairly quick action to try to control disease and prevent spinal cord compression and neurologic compromise. She appears to have fairly good insight to the disease and capable of making decisions. We did briefly review the logistics to palliative radiation therapy including CT simulation, treatment planning, and daily fractionated treatment likely for 5 fractions. We discussed the risk, benefits, alternatives to palliative radiation therapy and attempted to answer all of her questions. I did discuss the potential acute and chronic toxicities from treatment to the T9 disease as well as the right scapular disease and the right breast disease. Following our discussion she wanted to consider her options longer and I plan to check in with her later today or tomorrow morning to determine if she has decided on treatment approach. She was given my phone number and instructed to call me with questions. Thank you for allowing me to participate in the management and care of your patient. If I may answer any questions in the interim, please do not hesitate to contact me at any time. Hang Joaquin DO, MS [facility], Department of Radiation Oncology /[facility] Coding Level of Care Code Attention Kimberly Exam Problem Focused Medical Decision Making High Complexity Diagnoses Cancer related pain G89.3 Metastatic bone tumor C79.51 Comment in patient level 5
[2023-12-15] MEDS: Insulin Lispro 100 UNIT/ML INSULN.PEN SC ×3 (11:59→22:17)
[2023-12-15 12:21] LABS: Bedside Glucose 176 mg/dL (74-106)
--- NOTE | 2023-12-15 13:57 | CASEMGMT ---
Addendum entered by Christina Stark 12/15/23 15:30: Pt states she has a BGM with sufficient supply of strips and lancets but she would like a new BGM that is smaller. Pt is requesting a rx upon dc. Original Note: DANA DYER Assessment: Face to Face with pt for initial transition planning/care coordination assessment. DANA DYER introduced self and role at [facility], pt voices understanding and consents to assessment. Pt is A&O x4 and answers all questions appropriately at this time. Pt sitting up in bed in no distress with dtr, son and granddtr present in room. Pt agreeable to assessment with family present. Care providers, pharmacy, and demographics verified/updated. Admitting Dx: back pain, cancer pain Strata Score: 1 PCP:Prabhu Specialists:Pod through [facility] Preferred Pharmacy: [facility] Insurance: [facility] Prescription Benefit: yes LNOK: Ellen Jimenez, dtr Living Arrangements: Pt lives alone in a two story townhouse with two steps to enter. Pt reports she had been I in ADLs up until recently. She states now with pain, she is having difficulty at home. Pt states she can do easy meals but typically orders meals out. Pt can do her own laundry and will go to grocery to picker tender a few things. Transportation: Pt does not drive, family transports her to medical appts. DME:[facility] HHC/SNF:Denies hx of Pt is requesting a smaller home. Discussed options of what pt was describing. [place]ed [place] and pt would like info on [place]. Updated SW. Pt is aware that this is not something that typcially can be done while she is in the hospital. Pt discussed seeing her and her options. Pt to think about her options and make a decision on which way she would like to go as far as treatment. Pt states she uses imagery and meditation to help her pain. Pt states no further concerns/needs. Answered pt son's questions. Provided pt with a floor yarn weight and strength tester for her ipad to borrow. CM to follow. Advised pt to ask CM if any further question/concerns/needs arise, voices understanding. Pt Goal: Home Plan: TBD pending course of hospitalization and therapy noelle Childers RN, CM
--- NOTE | 2023-12-15 15:05 | PN_ITS ---
Subjective Subjective Patient seen and examined. She was sitting comfortably in bed. She had no complaints, but on further questioning admitted to weakness in her lower extremities as well as some numbness and tingling. Review of systems otherwise negative. Objective Data Objective Data Vital Signs: Vital Signs Temp Pulse Resp BP Pulse Ox O2 Del Method 97.8 F 70 16 147/61 H 96 Room Air 12/15/23 08:20 12/15/23 08:20 12/15/23 08:20 12/15/23 08:20 12/15/23 08:20 12/15/23 08:20 Oxygen Delivery Method Room Air Weight: 125 lb 0.034 oz Body Mass Index (BMI) 21.3 Intake & Output: Intake and Output for Last 24 Hours 12/13/23 12/14/23 12/15/23 23:59 23:59 23:59 Intake Total 500 / 500 Output Total 150 / 150 Balance 500 / 500 -150 / -150 Medical Nutrition Assessment Dietitian: Malnutrition Criteria Met Start: 12/15/23 13:06 Freq: Status: Active Protocol: Document 12/15/23 13:06 RMA (Rec: 12/15/23 13:07 RMA [id number]) Nutrition Malnutrition Evidence of Malnutrition Exists Yes Malnutrition (severe): Acute Illness/Injury Evidenced By Suboptimal Energy Intake ( Severe),Weight Loss (Severe) Clinical Problem Acute Disease or Injury Related Malnutrition Etiology severe protein-calorie malnutrition in the context of acute disease related to inadequate energy intake and increased energy expenditure/ metastatic disease Signs/Symptoms as evidenced by ~11% unintentional weight loss x past 2-3 months, PO meeting less than 50% estimated nutrition needs x 6 months and BMI 21.3 Status Active Problem Recommendation Dietitian Recommendations/Changes Will change diet to general/ liberalized carbohydrate- controlled diet without caloric restriction. Will add 240mL strawberry glucerna shake w/ breakfast and dinner tray. Additional ONS as needed to optimize PO/nutrition as tolerated. Lab / Micro Data 12/15/23 06:47 12/15/23 06:47 Labs: Laboratory Results - last 24 hr 12/14/23 16:06: WBC 6.6, RBC 4.10 L, Hgb 10.8 L, Hct 34.3 L, MCV 83.7, MCH 26.3 L, MCHC 31.5 L, RDW Std Deviation 46.2 H, RDW Coeff of Annika 15.0 H, Plt Count 334, MPV 10.2, Immature Gran % (Auto) 0.200, Neut % (Auto) 60.2, Lymph % (Auto) 31.8, [place] % (Auto) 6.6, Eos % (Auto) 0.9, Baso % (Auto) 0.3, Absolute Neuts (auto) 4.0, Absolute Lymphs (auto) 2.11, Nucleated RBC % 0, PT 12.8, INR 1.0, Sodium 137, Potassium 4.1, Chloride 107, Carbon Dioxide 24.0, Anion Gap 6, BUN 12, Creatinine 0.70, Est GFR (MDRD) Af Amer 104, Est GFR (MDRD) Non-Af 86, BUN/Creatinine Ratio 17.2, Glucose 113 H, Calcium 10.0, Total Bilirubin 0.40, AST 27, ALT 17, Alkaline Phosphatase 84, Total Protein 8.1, Albumin 3.7, G lobulin 4.4 H, Albumin/Globulin Ratio 0.8 L 12/14/23 17:51: Urine Color Yellow, Urine Clarity Clear, Urine pH 7.0, Ur Specific [place] 1.005, Urine Protein 15 H, Urine Glucose (UA) Normal, Urine Ketones 5 H, Urine Occult Blood Negative, Urine Nitrite Negative, Urine Bilirubin Negative, Urine Urobilinogen Normal, Ur Leukocyte Esterase Negative, Urine RBC 0 SEEN, Urine WBC 0 SEEN, Ur Squamous Epith Cells 0 SEEN, Urine Bacteria 0 SEEN, Urine Mucus 0 SEEN 12/14/23 20:55: Troponin I High Sens 30 12/14/23 23:10: Troponin I High Sens 45 12/14/23 23:20: POC Glucose 151 H 12/15/23 05:55: POC Glucose 122 H 12/15/23 06:47: WBC 5.3, RBC 3.54 L, Hgb 9.4 L, Hct 29.9 L, MCV 84.5, MCH 26.6 L , MCHC 31.4 L, RDW Std Deviation 46.6 H, RDW Coeff of Annika 15.2 H, Plt Count 292, MPV 10.5, Immature Gran % (Auto) 0.400, Neut % (Auto) 48.2, Lymph % (Auto) 39.3, [place] % (Auto) 11.0 H, Eos % (Auto) 0.9, Baso % (Auto) 0.2, Absolute Neuts (auto) 2.6, Absolute Lymphs (auto) 2.08, Nucleated RBC % 0, Sodium 140, Potassium 3.1 L , Chloride 107, Carbon Dioxide 25.0, Anion Gap 8, BUN 12, Creatinine 0.73, Estim Creat Clear Calc 50.05, Est GFR (MDRD) Af Amer 99, Est GFR (MDRD) Non-Af 82, BUN/Creatinine Ratio 16.4, Glucose 138 H, Calcium 9.1, Phosphorus 4.3 12/15/23 11:47: POC Glucose 176 H Radiography Diagnostic Testing: Radiology Impression Abdomen/Pelvis CT 12/14/23 15:36 IMPRESSION: Findings consistent with nonspecific gastroduodenitis. No evidence for small bowel obstruction Mild right renal dilatation secondary to markedly narrowed ureter due to thickening of the blount possibly metastatic or due to extrinsic compression by complex cystic mass right in the adnexa Probable small hepatic metastasis which may be further assessed with MRI if indicated Electronically Signed: Kwaku Carrillo MD at 19:06 EDT , Chest CTA 12/14/23 15:36 IMPRESSION: No acute cardiopulmonary pathology ASHD without evidence for aortic aneurysm or dissection.. No evidence for pulmonary embolus Findings consistent with known right breast carcinoma, axillary nodes right scapular metastasis and extensive metastasis of T9 with probable spinal canal invasion of tumor. MRI with contrast would be helpful for more definitive evaluation Electronically Signed: Kwaku Carrillo MD at 18:54 EDT , Rhythm Strip Rhythm Strip: Sinus Rhythm Rate: 90 Ectopy: None Physical Exam Const alert, oriented x3 and no apparent distress General Appearance: cooperative HEENT normocephalic, head/scalp atraumatic and moist oral mucous membranes Eyes PERRL and EOMs intact bilaterally Neck supple and no JVD Lymph Lymphatic: no lymphadenopathy noted Resp normal respiratory effort, normal air movement and clear to auscultation bilaterally Cardio regular rate, regular rhythm, S1 normal heart sound, S2 normal heart sound and no murmurs GI normal to inspection, nondistended, normoactive bowel sounds, soft to palpation and non-tender Extremity normal capillary refill, no clubbing, cyanosis or edema and no calf tenderness General Extremity: no tenderness to palpation of joints or extremities Skin Skin Narrative: large, nontender, lumpy breast mass on the right upper quadrant of the right breast. Nonfungating. Neuro CN's II-XII intact bilaterally, no focal motor deficits, no sensory deficits noted and deep tendon reflexes 2+ bilaterally Motor Exam: general weakness Psych thought process normal and cooperative Appearance: appropriate Assessment & Plan Assessment/Plan (1) Metastatic bone tumor: (2) Metastatic disease: PLAN: Plan #Back pain and weakness due to breast cancer with spine mets * Patient diagnosed with breast cancer about 2 years ago but refused to follow- up with oncologist as she did not want chemotherapy or radiation therapy. * Admitted with a complaint of severe back pain as well as pain in her right shoulder and right chest. The right breast mass has enlarged though she says she does not think it is a problem as is not painful * CTA showed evidence of the right breast cancer with palpable right axillary nodes and right scapula mets as well as extensive metastasis of T9 with probable spinal canal invasion. * MRI of the lumbar, spinal and cervical spines ordered. Radiation oncology consulted * Patient on p.o. Tylenol, p.o. oxycodone and IV morphine as needed for pain. Started on IV Decadron 4 mg twice daily. * Patient counseled about the possible need for neurosurgery evaluation for debulking surgery for the spinal tumor. Patient however refuses for now and wants to think some more about it. * Radiation oncologist spoke to patient and she wants to consider her options longer and decide. * PT OT on board. Fall precautions. * Patient does not seem to have insight into the severity of her condition as she says because the mass is not painful this is not problematic for her. She again states that she does not want radiation or chemotherapy and says God will heal her. * further management to be predicated on patient's decision about whether she will undergo radiation or agree for transfer for neurosurgical evaluation. * * #Anemia * Hb is 9.4. Baseline hb appears to be 10-11. * May be due to cancer. * WIll monitor and trend Hb * #. Type 2 diabetes mellitus: Metformin on hold. Insulin sliding scale. Accu- Cheks ACHS. DVT prophylaxis: Lovenox Charges/Coding Visit Charges Inpatient E&M: 46557 Subs Hosp L2
[2023-12-15 15:57] VITALS: BP 155/57; PULSE 79; RESP 18; TEMP 37.1; O2SAT 98
[2023-12-15 16:18] LABS: Bedside Glucose 251 mg/dL (74-106)
[2023-12-15 19:42] VITALS: O2SAT 96
[2023-12-15 22:13] VITALS: BP 160/69; PULSE 70; RESP 16; TEMP 36.9; O2SAT 99
[2023-12-15] MEDS: Enoxaparin 40 MG/0.4 ML Syringe SC (22:19)
[2023-12-15 22:26] LABS: Bedside Glucose 242 mg/dL (74-106)
[2023-12-16] MEDS: HYDROmorphone 0.5 MG/0.5 ML SYRINGE IV (05:10)
[2023-12-16] MEDS: Acetaminophen 500 MG Tablet 1000 MG PO ×3 (05:11→20:33)
[2023-12-16 05:13] VITALS: BP 160/75; PULSE 75; RESP 16; TEMP 36.9; O2SAT 100
[2023-12-16 05:40] LABS: Absolute Lymphocyte Count 0.99 X10^3/uL (0.83-4.51); Absolute Neutrophil Count 4.6 X10^3/uL (2.0-7.7); Basophil# 0.01 X10^3/uL; Basophil% 0.2 % (0-1); Hematocrit 30.3 % (37-47); Hemoglobin 9.3 g/dL (12.0-15.0); Lymphocyte # 0.99 X10^3/ul (0.83-4.51); Mean Corp Hgb Conc 30.7 g/dL (32-36); Mean Corpuscular Hgb 25.8 pg (27.0-32.0); Mean Corpuscular Volume 83.9 fL (81-99); Mean Platelet Vol. 10.1 fl (6.2-12.0); Monocyte# 0.17 X10^3/uL; Monocyte% 2.9 % (0-10); NRBC Flagged by Analyzer 0 % (0-5); Neutrophil # 4.63 X10^3/uL (2.7-7.7); Neutrophil % 79.2 % (47-70); Platelet Count 319 K/mm3 (150-450); RBC Distribution Width SD 46.4 fl (35.1-43.9); Red Blood Count 3.61 M/mm3 (4.2-5.4); White Blood Count 5.8 K/mm3 (4.4-11.0)
[2023-12-16 06:09] LABS: Anion Gap 6 (5-15); BUN 11 mg/dL (7-18); BUN/Creat Ratio 16.9 RATIO (10-20); Chloride 104 mmol/L (98-107); Creatinine, Serum 0.65 mg/dL (0.55-1.02); EST Glomerular Filtration Rate 94 mL/min (>60); Est Glom Filt Rate - Afr Amer 113 mL/min (>60); Estimated Creatinine Clearance 50.05 ml/min; Glucose 193 mg/dL (74-106); Sodium Level 135 mmol/L (136-145)
[2023-12-16] MEDS: Insulin Lispro 100 UNIT/ML INSULN.PEN SC ×4 (06:54→20:47)
[2023-12-16 06:58] LABS: Bedside Glucose 187 mg/dL (74-106)
[2023-12-16 07:47] VITALS: O2SAT 97
[2023-12-16 09:16] VITALS: BP 135/63; PULSE 69; RESP 16; TEMP 36.3; O2SAT 100
[2023-12-16] MEDS: Polyethylene Glycol 3350 17 GM PACKET PO (09:29)
[2023-12-16] MEDS: Senna/Docusate Sodium 1 Tablet 2 TABLET PO (09:29)
[2023-12-16] MEDS: 0.9% Saline Lock 10 ML Syringe IV (09:29)
[2023-12-16] MEDS: Pantoprazole Sodium 40 MG Tablet PO (09:29)
[2023-12-16] MEDS: Cyanocobalamin 500 MCG Tablet 1000 MCG PO (09:30)
[2023-12-16] MEDS: Aspirin 81 MG TAB.CHEW PO (09:30)
[2023-12-16] MEDS: traMADol 50 MG Tablet PO ×2 (09:30→14:24)
[2023-12-16] MEDS: Ferrous Sulfate 325 MG Tablet PO (09:30)
[2023-12-16] MEDS: Lisinopril 20 MG Tablet PO ×2 (09:30→20:33)
[2023-12-16] MEDS: Bisacodyl 10 MG Suppository RC (09:30)
[2023-12-16] MEDS: dexAMETHasone 4 MG/ML Vial IV (09:31)
--- NOTE | 2023-12-16 10:45 | PN_ITS ---
Subjective Subjective Patient seen and examined. She still complained of some weakness in her lower extremities. She still complain so fpain in her back. Review of systems is otherwise negative. She still says she is still undecided about whether to have radiation. Objective Data Objective Data Vital Signs: Vital Signs Temp Pulse Resp BP Pulse Ox O2 Del Method 97.3 F L 69 16 135/63 H 100 Room Air 12/16/23 09:16 12/16/23 09:16 12/16/23 09:16 12/16/23 09:16 12/16/23 09:16 12/16/23 09:16 Oxygen Delivery Method Room Air Weight: 125 lb 0.034 oz Body Mass Index (BMI) 21.3 Intake & Output: Intake and Output for Last 24 Hours 12/14/23 12/15/23 12/16/23 23:59 23:59 23:59 Intake Total 500 / 500 1000 / 1000 Output Total 150 / 150 Balance 500 / 500 850 / 850 Medical Nutrition Assessment Dietitian: Malnutrition Criteria Met Start: 12/15/23 13:06 Freq: Status: Active Protocol: Document 12/15/23 13:06 RMA (Rec: 12/15/23 13:07 RMA [id number]) Nutrition Malnutrition Evidence of Malnutrition Exists Yes Malnutrition (severe): Acute Illness/Injury Evidenced By Suboptimal Energy Intake ( Severe),Weight Loss (Severe) Clinical Problem Acute Disease or Injury Related Malnutrition Etiology severe protein-calorie malnutrition in the context of acute disease related to inadequate energy intake and increased energy expenditure/ metastatic disease Signs/Symptoms as evidenced by ~11% unintentional weight loss x past 2-3 months, PO meeting less than 50% estimated nutrition needs x 6 months and BMI 21.3 Status Active Problem Recommendation Dietitian Recommendations/Changes Will change diet to general/ liberalized carbohydrate- controlled diet without caloric restriction. Will add 240mL strawberry glucerna shake w/ breakfast and dinner tray. Additional ONS as needed to optimize PO/nutrition as tolerated. Lab / Micro Data 12/16/23 04:40 12/16/23 04:40 Labs: Laboratory Results - last 24 hr 12/15/23 11:47: POC Glucose 176 H 12/15/23 15:29: POC Glucose 251 H 12/15/23 22:07: POC Glucose 242 H 12/16/23 04:40: WBC 5.8, RBC 3.61 L, Hgb 9.3 L, Hct 30.3 L, MCV 83.9, MCH 25.8 L , MCHC 30.7 L, RDW Std Deviation 46.4 H, RDW Coeff of Annika 15.0 H, Plt Count 319, MPV 10.1, Immature Gran % (Auto) 0.700, Neut % (Auto) 79.2 H, Lymph % (Auto) 17.0 L, [place] % (Auto) 2.9, Eos % (Auto) 0.0, Baso % (Auto) 0.2, Absolute Neuts (auto) 4.6, Absolute Lymphs (auto) 0.99, Nucleated RBC % 0, Sodium 135 L, Potassium 4.0, Chloride 104, Carbon Dioxide 25.0, Anion Gap 6, BUN 11, Creatinine 0.65, Estim Creat Clear Calc 50.05, Est GFR (MDRD) Af Amer 113, Est GFR (MDRD) Non-Af 94, BUN/Creatinine Ratio 16.9, Glucose 193 H, Calcium 9.0 12/16/23 06:39: POC Glucose 187 H Radiography Diagnostic Testing: Radiology Impression Cervical Spine MRI 12/15/23 09:05 IMPRESSION: No evidence for acute fracture or subluxation.. Mild multilevel disc disease and neural foraminal stenosis secondary to bony encroachment No cord compression or focal cord lesion. No enhancing lesions following contrast administration to suggest metastatic disease Electronically Signed: Kwaku Carrillo MD at 20:34 EDT , Lumbar Spine MRI 12/15/23 09:05 IMPRESSION: No evidence for acute fracture or subluxation. Spondylosis and multilevel spinal stenosis secondary to disc disease and bony hypertrophy No enhancing lesions to suggest metastatic disease Findings as above Electronically Signed: Kwaku Carrillo MD at 20:54 EDT , Thoracic Spine MRI 12/15/23 09:05 IMPRESSION: Findings consistent with extensive intramedullary bone marrow lesion involving the T9 vertebral body more severe on the right with involvement of the posterior neural arch also more severe on the right with epidural tumor extension severely compressing and displacing the spinal cord anteriorly and towards the left.. This may be consistent with bone metastasis Tiny central disc protrusion at T6-7 mildly narrowing the central canal impinging upon the cord Electronically Signed: Kwaku Carrillo MD at 20:47 EDT , Rhythm Strip Rhythm Strip: Sinus Rhythm Rate: 90 Ectopy: None Physical Exam Const alert, oriented x3 and no apparent distress General Appearance: cooperative HEENT normocephalic, head/scalp atraumatic and moist oral mucous membranes Eyes PERRL and EOMs intact bilaterally Neck supple and no JVD Lymph Lymphatic: no lymphadenopathy noted Resp normal respiratory effort, normal air movement and clear to auscultation bilaterally Cardio regular rate, regular rhythm, S1 normal heart sound, S2 normal heart sound and no murmurs GI normal to inspection, nondistended, normoactive bowel sounds, soft to palpation and non-tender Extremity normal capillary refill, no clubbing, cyanosis or edema and no calf tenderness General Extremity: no tenderness to palpation of joints or extremities Skin Skin Narrative: large, nontender, lumpy breast mass on the right upper quadrant of the right breast. Nonfungating. Neuro CN's II-XII intact bilaterally, no focal motor deficits, no sensory deficits noted and deep tendon reflexes 2+ bilaterally Motor Exam: general weakness Psych thought process normal and cooperative Appearance: appropriate Assessment & Plan Assessment/Plan (1) Metastatic bone tumor: (2) Metastatic disease: PLAN: Plan #Back pain and weakness due to breast cancer with spine mets * Patient diagnosed with breast cancer about 2 years ago but refused to follow- up with oncologist as she did not want chemotherapy or radiation therapy. * Admitted with a complaint of severe back pain as well as pain in her right shoulder and right chest. The right breast mass has enlarged though she says she does not think it is a problem as is not painful * CTA showed evidence of the right breast cancer with palpable right axillary nodes and right scapula mets as well as extensive metastasis of T9 with probable spinal canal invasion. * MRI of the lumbar, spinal and cervical spines ordered. Radiation oncology consulted * Patient on p.o. Tylenol, p.o. oxycodone and IV morphine as needed for pain. Started on IV Decadron 4 mg twice daily. * Patient counseled about the possible need for neurosurgery evaluation for debulking surgery for the spinal tumor. Patient however refuses for now and wants to think some more about it. * Patient still saying she doesnt know if she wants to have radiation and wants to think some more about it. * PT/OT on board. Fall precautions. * further management to be predicated on patient's decision about whether she will undergo radiation or agree for transfer for neurosurgical evaluation. * * #Anemia * Hb is 9.3 today. Baseline hb appears to be 10-11. * May be due to cancer. * WIll monitor and trend Hb * #. Type 2 diabetes mellitus: Metformin on hold. Insulin sliding scale. Accu- Cheks ACHS. DVT prophylaxis: Lovenox Charges/Coding Visit Charges Inpatient E&M: 28602 Subs Hosp L2
--- NOTE | 2023-12-16 10:58 | CASEMGMT ---
Social Work- SW met with pt to discuss preferences at d/c. Pt reports that her son lives with her and assists with shopping, cooking, and transportation, but works midnights. Pt dtr recently had a stroke and is unable to assist with transport or some physical needs. Pt reports that she PT was a challenge for her yesterday. Pt discussed medical hx, pt belief system that has guided her medical decisions and pt goals of care. SW provided education on various care options and she is agreeable to additional therapy via inpatient at d/c, but wants to talk to the oncology dr about surgery prior to making any decisions. PT also inquired about HHC and [facility] programs, as pt would rather have family assist in care than a stranger through palliative. SW will follow up with pt regarding programs when a decision has been made regarding surgery. Pt dtr called while SW was present and asked to speak to SW regrading [facility] programs; SW provided education. SW will provide print-out as well. SW remains available to follow. YAIR Slater
--- NOTE | 2023-12-16 11:17 | CPS ---
Pt unavailable at this time.
[2023-12-16 12:05] VITALS: BP 167/72; PULSE 71; RESP 18; TEMP 36.6; O2SAT 100
[2023-12-16 12:34] LABS: Bedside Glucose 205 mg/dL (74-106)
[2023-12-16 14:15] VITALS: BP 170/71; PULSE 82; RESP 18; TEMP 36.6; O2SAT 98
[2023-12-16] MEDS: tiZANidine HCl 2 MG Tablet 4 MG PO ×2 (14:24→20:38)
--- NOTE | 2023-12-16 14:52 | CASEMGMT ---
Insurance review for hospitals In-network with [facility] insurance if transfer is recommended is as follows: [facility], [place], [facility], [place], [facility], [facility], [facility], [facility], [place], [facility]), and . Steffi Brunner, Discharge Planning Asst.
[2023-12-16 16:42] LABS: Bedside Glucose 250 mg/dL (74-106)
--- NOTE | 2023-12-16 19:25 | NURSING ---
nurse to nurse report given to Vilma CORTEZ [facility] Room 703,
[2023-12-16 20:15] VITALS: BP 178/65; PULSE 69; RESP 16; TEMP 36.8; O2SAT 100
[2023-12-16 23:07] LABS: Bedside Glucose 188 mg/dL (74-106)
--- NOTE | 2023-12-18 09:27 | DS.PCM_ITS ---
Providers Date of Admission: 12/15/23 Date of Discharge: 12/16/23 Primary Care Physician: Dr. Emiliano Pelletier, DO Consultations 12/14/23 21:35 Consult: Oncology/Hematology Routine Consulting Provider: *[facility] ([facility]) Reason for Consult: Widespread right breast cancer with mets to T7 and the spinal canal EMERGENT Consult: No MD Notified: Yes Date Notified: 12/14/23 Time Notified: 21:35 Method of Notification: ED Physician Initiated Reason For Visit: BACK PAIN, CANCER PAIN Diagnosis Discharge Diagnosis (1) Metastatic bone tumor: Status: Acute Code(s): C79.51 - Secondary malignant neoplasm of bone (2) Metastatic disease: Status: Acute Code(s): C79.9 - Secondary malignant neoplasm of unspecified site Plan #Back pain and weakness due to breast cancer with spine mets * Patient diagnosed with breast cancer about 2 years ago but refused to follow- up with oncologist as she did not want chemotherapy or radiation therapy. * Admitted with a complaint of severe back pain as well as pain in her right shoulder and right chest. The right breast mass has enlarged though she says she does not think it is a problem as is not painful * CTA showed evidence of the right breast cancer with palpable right axillary nodes and right scapula mets as well as extensive metastasis of T9 with probable spinal canal invasion. * MRI of the lumbar, spinal and cervical spines ordered. Radiation oncology consulted * Patient on p.o. Tylenol, p.o. oxycodone and IV morphine as needed for pain. Started on IV Decadron 4 mg twice daily. * Patient counseled about the possible need for neurosurgery evaluation for debulking surgery for the spinal tumor. Patient however refuses for now and wants to think some more about it. * Patient still saying she doesnt know if she wants to have radiation and wants to think some more about it. * PT/OT on board. Fall precautions. * further management to be predicated on patient's decision about whether she will undergo radiation or agree for transfer for neurosurgical evaluation. * * #Anemia * Hb is 9.3 today. Baseline hb appears to be 10-11. * May be due to cancer. * WIll monitor and trend Hb * #. Type 2 diabetes mellitus: Metformin on hold. Insulin sliding scale. Accu- Cheks ACHS. DVT prophylaxis: Lovenox Medications at Discharge Home Medications aspirin 81 mg chewable tablet 81 mg PO DAILY@0800 prophylaxis 01/01/13 cyanocobalamin (vitamin B-12) 1,000 mcg/mL oral drops (Vitamin B-12) 1,000 mcg PO DAILY vitamin 01/01/13 ivdgkusvnjgf-Ou-qwcn-minerals (Multiple Vitamin, Womens tablet) 1 ea PO DAILY 09/23/17 ibuprofen 600 mg tablet 600 mg PO Q8H PRN PRN pain #20 TABLETS 03/08/22 tramadol 50 mg tablet 50 mg PO Q4H PRN PRN Pain 3 days #20 tabs 03/08/22 enalapril maleate 20 mg tablet 20 mg PO BID BP 12/14/23 ferrous sulfate 140 mg (45 mg iron) tablet,extended release (Slow Release Iron) 140 mg PO DAILY SUPPLEMENT 12/14/23 meloxicam 15 mg tablet 15 mg PO DAILY PRN pain 12/14/23 metformin 1,000 mg tablet 1,000 mg PO BID DM 12/14/23 oxycodone 5 mg tablet 5 mg PO Q8H PRN PRN severe pain 12/14/23 Hospital Course Operations None Procedures None Summary of Care Provided Minutes Spent on Discharge: 55 Hospital Course: Patient is a 78-year-old female with a past medical history as outlined including right breast sided cancer diagnosed by biopsy 2 years ago for which she defaulted treatment that she did not want any chemotherapy or radiation who was admitted with a complaint of back pain and right-sided chest pain as well as shoulder pain for about 3 days prior to admission. She was prescribed oxycodone by his PCP but his symptoms did not improve and he started vomiting because of the pain meds so she came into the ED. She admitted to 15 pound weight loss in the last 2 to 3 months also. On admission imaging done showed evidence of metastatic disease to the right scapula and she also had extensive mets of T9 with probable spinal canal invasion. She did admit to weakness and numbness in her lower extremities. Radiation oncology was consulted. Patient was initially reluctant to have any treatment. She was however agreeable to IV Decadron. This was started. 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 She was accepted at [facility] as well as [facility] [place] but she got a bed at [facility] for so she was transferred to [facility] on 12/16/2023 for evaluation by spine surgery. Patient seen and examined prior to being transferred. She still complains of weakness in the lower extremities. Review of systems otherwise negative. Labs and vitals reviewed. Home medication reviewed and reconciled. Physical Exam Const alert, oriented x3 and no apparent distress General Appearance: cooperative and comfortable Orientation / Consciousness: awake Exam Limitations: no limitations HEENT normocephalic, head/scalp atraumatic, hearing grossly normal bilaterally and moist oral mucous membranes Mouth: oral and palatal mucosa normal Eyes PERRL, EOMs intact bilaterally and conjunctivae normal Neck no lymphadenopathy, supple and no JVD Lymph Lymphatic: no lymphadenopathy noted Resp normal respiratory effort, normal air movement and clear to auscultation bilaterally Cardio regular rate, regular rhythm, S1 normal heart sound, S2 normal heart sound and no murmurs GI normal to inspection, nondistended, normoactive bowel sounds, soft to palpation and non-tender Extremity normal to inspection, full ROM, normal capillary refill, no clubbing, cyanosis or edema and no calf tenderness General Extremity: no tenderness to palpation of joints or extremities Skin Skin Narrative: large, nontender, lumpy breast mass on the right upper quadrant of the right breast. Nonfungating. Neuro CN's II-XII intact bilaterally, no focal motor deficits, no sensory deficits noted and deep tendon reflexes 2+ bilaterally Motor Exam: general weakness Psych thought process normal and cooperative Appearance: appropriate Weight / BMI Weight Weight: 125 lb 0.034 oz Body Mass Index (BMI) 21.3 ABG / Lab / Microbiology Data 12/16/23 04:40 12/16/23 04:40 Meaningful Use Info Meaningful Use Meaningful Use Diagnoses (Choose all that apply): None applicable Ischemic Stroke Statin Dosing Therapy Reference: STATIN DOSE THERAPY REFERENCE: * Patients > 75 years receive moderate or high dose statin therapy. * Patients 75 years or YOUNGER should receive HIGH intensity statin dose unless contraindicated. You will be required to document reason for non-treatment if statin daily dose does not meet guidelines. HIGH DOSE STATIN THERAPY DAILY Atorvastatin > than or = to 40 mg Rosuvastatin > than or = to 20 mg Amlodipine + Atorvastatin > than or = to 2.5/40 mg Ezetimibe + Simvastatin 10/80 mg Simvastatin 80mg Discharge Plan Admission Admit Date/Time: 12/15/23 13:40 Primary Reason for Your Visit: metastatic breast cancer Attending Provider: Sandy Tom Primary Care Provider: Emiliano Pelletier Consulting Providers: Gagan Eaton; Gray Briceno; Cheko Santiago; Alverto Kumari; Nash Bowen; Dagoberto Adams; Hang Joaquin; Dorina Hoffman [employer]; Regino Chappell Discharge Orders/Prescriptions Prescriptions: No Action aspirin 81 MG tablet,chewable 81 mg PO DAILY@0800 Vitamin B-12 1,000 MCG/ML drops 1,000 mcg PO DAILY Multiple Vitamin, Womens 1 EACH tablet 1 ea PO DAILY ibuprofen 600 mg tablet 600 mg PO Q8H PRN PRN (Reason: pain) Qty: 20 0RF tramadol 50 mg tablet 50 mg PO Q4H PRN PRN (Reason: Pain) 3 Days Qty: 20 0RF enalapril maleate 20 mg tablet 20 mg PO BID Slow Release Iron 140 mg (45 mg iron) tablet extended release 140 mg PO DAILY meloxicam 15 mg tablet 15 mg PO DAILY PRN (Reason: pain) metformin 1,000 mg tablet 1,000 mg PO BID oxycodone 5 mg tablet 5 mg PO Q8H PRN PRN (Reason: severe pain) Referrals / Follow Up: Emiliano Pelletier DO [Primary Care Provider] - Disposition Disposition (needs filled in before D/C Order can be placed): Acute Care Hospital Charges/Coding Visit Charges Inpatient E&M: 54556 Disch Hosp >30min
== END 2023-12-16 22:03 | disposition short-term general hospital (02) | DRG 947 ==
LOC: ED 15:39 → MS3 21:25
PROVIDERS: Admitting Provider Internal Medicine; Emergency Provider Emergency Medicine; PCP Student in an Organized Health Care Education/Training Program; Visit Provider Student in an Organized Health Care Education/Training Program
DX: G89.3 Neoplasm related pain (acute) (chronic) (principal); E43 Unspecified severe protein-calorie malnutrition; C79.51 Secondary malignant neoplasm of bone; C78.7 Secondary malignant neoplasm of liver and intrahepatic bile duct; C50.511 Malignant neoplasm of lower-outer quadrant of right female breast; D63.0 Anemia in neoplastic disease; E11.9 Type 2 diabetes mellitus without complications; I10 Essential (primary) hypertension; E86.0 Dehydration; Z68.21 Body mass index [BMI] 21.0-21.9, adult; R59.0 Localized enlarged lymph nodes; Z79.01 Long term (current) use of anticoagulants; Z79.84 Long term (current) use of oral hypoglycemic drugs; Z79.82 Long term (current) use of aspirin; Z79.891 Long term (current) use of opiate analgesic; Z87.891 Personal history of nicotine dependence
CPT/HCPCS: 36415; 71275; 72156; 72157; 72158; 74177; 80048; 80053; 81001; 82962; 84100; 84484; 85025; 85610; 93005; 94668; 97162; 97166; 97530; 97535; 97802; 99285; A9575; J7040; J7120; Q9967; A4216; J2405

== ENCOUNTER 2024-02-05 15:06 | Inpatient (IN) | payer MEDICARE, SELFPAY ==
[2024-02-05 15:07] VITALS: BP 142/54; PULSE 112; RESP 16; TEMP 36.6; O2SAT 98; BMI 19.9
[2024-02-05 15:32] VITALS: BP 135/56; PULSE 105; RESP 15; O2SAT 100
--- NOTE | 2024-02-05 16:17 | EX.ED.DYSGE1 ---
HPI <CHERRY Lu - Last Filed: 02/05/24 20:32> History of Present Illness Chief Complaint: Abn Labs Narrative Narrative: Patient presenting today after being sent over for abnormal labs regarding her kidney function that were drawn today. She is currently at [facility] due to history of metastatic breast cancer to the spine. She last had radiation today. She had labs drawn 2 days ago that showed a creatinine of 2.81 and a BUN of 92, today her creatinine was 1.06 and BUN of 58. Her sodium today was 152. Patient is here with her daughter who is providing most of the history, she reports that her mom has not been communicating much with them since November and this is not abnormal for her. She does report that her mom has had decreased intake of fluids and food. Patient has had no recent illness, fevers, nausea, or vomiting. [facility] <CHERRY Lu - Last Filed: 02/05/24 20:32> [facility] Medical History (Updated 02/05/24 @ 20:32 by CHERRY Lu) Psoriasis Diabetic peripheral neuropathy Dermatophytosis Macular degeneration Hypercholesteremia Anemia Metastatic bone tumor Metastatic disease Cancer related pain Hypertension Breast cancer Diabetes Home Medications ?Medication ?Instructions ?Recorded ?Last Taken ?Type aspirin 81 mg chewable tablet 81 mg PO DAILY@0800 prophylaxis 01/01/13 1 Day Ago History ~05/07/16 cyanocobalamin (vitamin B-12) 1,000 mcg PO DAILY vitamin 01/01/13 Unknown History 1,000 mcg/mL oral drops (Vitamin B-12) [id number]-Ry-taeu-minerals 1 ea PO DAILY 09/23/17 Unknown History (Multiple Vitamin, Womens tablet) enalapril maleate 20 mg tablet 20 mg PO BID BP 12/14/23 Unknown History ferrous sulfate 140 mg (45 mg 140 mg PO DAILY SUPPLEMENT 12/14/23 Unknown History iron) tablet,extended release (Slow Release Iron) meloxicam 15 mg tablet 15 mg PO DAILY PRN pain 12/14/23 Unknown History metformin 1,000 mg tablet 1,000 mg PO BID DM 12/14/23 Unknown History oxycodone 5 mg tablet 5 mg PO Q8H PRN PRN severe pain 12/14/23 Unknown History Lactobacillus rhamnosus GG 10 1 cap PO QDAY 01/27/24 Unknown History billion cell capsule (Culturelle) acetaminophen 325 mg chewable 650 mg PO Q4-6H PRN fever or pain 01/27/24 Unknown History tablet aluminum-magnesium hydroxide 225 5 ml PO .prn 01/27/24 Unknown History mg-200 mg/5 mL oral suspension ascorbic acid (vitamin C) 500 mg 500 mg PO DAILY 01/27/24 Unknown History capsule bisacodyl 10 mg rectal suppository 10 mg NM ONCE PRN constipation 01/27/24 Unknown History mirtazapine 15 mg tablet (Remeron) 15 mg PO QHS 01/27/24 Unknown History morphine 15 mg tablet,extended 15 mg PO Q12H 01/27/24 Unknown History release nystatin 100,000 unit/mL oral 10 ml PO TID 01/27/24 Unknown History suspension ondansetron HCl 4 mg tablet 4 mg PO Q8H 01/27/24 Unknown History sennosides 8.6 mg-docusate sodium 1 tab-cap PO QHS 01/27/24 Unknown History 50 mg tablet (Senna with Docusate Sodium) ceftriaxone 1 gram solution for 1 g IM QHS 02/05/24 Unknown History injection Allergy/AdvReac Type Severity Reaction Status Date / Time acetaminophen (From Vicodin) AdvReac Vomiting Verified 02/05/24 15:28 hydrocodone bitartrate (From AdvReac Vomiting Verified 02/05/24 15:28 Vicodin) Family History (Updated 02/05/24 @ 20:[address] Brittney Simental MD) Mother Diabetes Father Hypertension Surgical History (Updated 02/05/24 @ 20:[address] Brittney Simental MD) History of spinal surgery History of coronary artery bypass graft Social History (Updated 02/05/24 @ 20:[address] Brittney Simental MD) household members: family housing: care home Smoking Status: Former smoker how long ago did patient quit smoking: Quit > 50 years prior. alcohol intake: never substance use type: does not use ROS <CHERRY Lu - Last Filed: 02/05/24 20:32> ROS ED Constitutional Constitutional ED: Denies chills or fever(s) Respiratory/Chest Respiratory/Chest: Denies cough Gastrointestinal Gastrointestinal: Denies nausea or vomiting Musculoskeletal Musculoskeletal: Denies neck pain Integumentary Denies rash EXAM <CHERRY Lu - Last Filed: 02/05/24 20:32> Physical Exam Const Vital Signs: 02/05/24 15:07 02/05/24 15:30 02/05/24 15:32 Temperature 98 F Temperature Source Axillary Pulse Rate 112 H 105 H Respiratory Rate 16 15 Respiratory Effort Normal Respiratory Pattern Normal Blood Pressure 142/54 H 135/56 H Blood Pressure Mean 83 82 Pulse Ox 98 100 Oxygen Delivery Method Room Air Room Air 02/05/24 17:07 Temperature Temperature Source Pulse Rate 97 Respiratory Rate 12 Respiratory Effort Respiratory Pattern Blood Pressure Blood Pressure Mean Pulse Ox Oxygen Delivery Method Positive well nourished, well developed and no apparent distress General Appearance ED: well developed HEENT Reports normocephalic, head/scalp atraumatic and dry mucous membranes Mouth ED: Yes dry mucous membranes Mouth: dry mucous membranes Eyes PERRL and EOMs intact bilaterally Neck full ROM and supple Chest Wall inspection of chest normal Resp normal respiratory effort and clear to auscultation bilaterally Cardio regular rate and regular rhythm GI soft to palpation, non-tender, non-distended and no masses Back/Spine normal ROM and normal to inspection Extremity normal to inspection and full ROM Neuro oriented x3, CN's II-XII intact bilaterally, moves all extremities, no focal motor deficits and no sensory deficits noted Sensorium / Orientation: awake and alert Psych mental status grossly normal and thought process normal Skin no rashes or lesions noted Skin Narrative: Stage II dime sized pressure ulcer to the sacrum, this does not appear infected. Intact sutures to the mid back with no surrounding erythema, purulent discharge, warmth, or signs of infection. <Dr. Butch Liu DO - Last Filed: 02/05/24 22:19> Physical Exam Const Vital Signs: 02/05/24 15:07 02/05/24 15:30 02/05/24 15:32 Temperature 98 F Temperature Source Axillary Pulse Rate 112 H 105 H Respiratory Rate 16 15 Respiratory Effort Normal Respiratory Pattern Normal Blood Pressure 142/54 H 135/56 H Blood Pressure Mean 83 82 Pulse Ox 98 100 Oxygen Delivery Method Room Air Room Air 02/05/24 17:07 Temperature Temperature Source Pulse Rate 97 Respiratory Rate 12 Respiratory Effort Respiratory Pattern Blood Pressure Blood Pressure Mean Pulse Ox Oxygen Delivery Method MDM <CHERRY Lu - Last Filed: 02/05/24 20:32> MDM MDM Narrative Medical decision making narrative: Patient presenting today with abnormal labs. She had labs drawn 2 days ago that showed a creatinine of 2.81 and a BUN of 92, today her creatinine was 1.06 and BUN of 58. Her sodium today was 152, repeat BMP was obtained and this shows a creatinine of 1 and BUN of 52, her sodium has remained at 152. She is nontoxic-appearing but is significantly dry appearing and has been given IV fluids. I do feel she would benefit from admission, I did speak with hospitalist, patient admitted in stable condition. Lab Data Attestation: I reviewed the patient's lab results. Lab results narrative: WBC 12.9, H&H 7.9 and 27.6, sodium 152, chloride 126 Labs: Laboratory Results - last 24 hr 02/05/24 15:50 WBC 12.9 H RBC 3.12 L Hgb 7.9 L Hct 27.6 L MCV 88.5 MCH 25.3 L MCHC 28.6 L RDW Std Deviation 55.1 H RDW Coeff of Annika 17.1 H Plt Count 412 MPV 10.7 Immature Gran % (Auto) 0.500 Neut % (Auto) 87.4 H Lymph % (Auto) 5.4 L [place] % (Auto) 6.4 Eos % (Auto) 0.2 Baso % (Auto) 0.1 Absolute Neuts (auto) 11.3 H Absolute Lymphs (auto) 0.70 L Nucleated RBC % 0 Sodium 152 H Potassium 4.5 Chloride 126 H Carbon Dioxide 20.0 L Anion Gap 6 BUN 52 H Creatinine 1.00 Estim Creat Clear Calc 38.79 Est GFR (MDRD) Af Amer 69 Est GFR (MDRD) Non-Af 57 L BUN/Creatinine Ratio 52.1 H Glucose 201 H Calcium 9.7 Phosphorus 2.7 Magnesium 2.4 Total Bilirubin 0.20 Direct Bilirubin < 0.05 AST 27 ALT 15 Alkaline Phosphatase 85 Total Protein 7.2 Albumin 2.2 L Globulin 5.0 H <Dr. Butch Liu, DO - Last Filed: 02/05/24 22:19> [facility] Lab Data Labs: Laboratory Results - last 24 hr 02/05/24 15:50 WBC 12.9 H RBC 3.12 L Hgb 7.9 L Hct 27.6 L MCV 88.5 MCH 25.3 L MCHC 28.6 L RDW Std Deviation 55.1 H RDW Coeff of Annika 17.1 H Plt Count 412 MPV 10.7 Immature Gran % (Auto) 0.500 Neut % (Auto) 87.4 H Lymph % (Auto) 5.4 L [place] % (Auto) 6.4 Eos % (Auto) 0.2 Baso % (Auto) 0.1 Absolute Neuts (auto) 11.3 H Absolute Lymphs (auto) 0.70 L Nucleated RBC % 0 Sodium 152 H Potassium 4.5 Chloride 126 H Carbon Dioxide 20.0 L Anion Gap 6 BUN 52 H Creatinine 1.00 Estim Creat Clear Calc 38.79 Est GFR (MDRD) Af Amer 69 Est GFR (MDRD) Non-Af 57 L BUN/Creatinine Ratio 52.1 H Glucose 201 H Calcium 9.7 Phosphorus 2.7 Magnesium 2.4 Total Bilirubin 0.20 Direct Bilirubin < 0.05 AST 27 ALT 15 Alkaline Phosphatase 85 Total Protein 7.2 Albumin 2.2 L Globulin 5.0 H Treatment and Re-Evaluation :: I have personally performed a face to face assessment of the patient and have reviewed the RAFAT Note. I performed a substantive portion of the visit including all aspects of the following. My lo findings include: History: Patient presents with abnormal labs that were was noticed 2 days ago. Family states that the patient was diagnosed with kidney disease at that time. Family states that the labs were repeated today and there were still some abnormalities however, they kidney function tests were improved. Patient was then referred to the emergency department. Patient admits to head pain. Patient states it feels heavy. Patient states her arms also feel heavy. Family states the patient has been having some chills. Family states patient has been having some nausea. Patient denies any chest pain or shortness of breath. Exam: Vital signs are stable except for mild tachycardia of 112. Patient is afebrile. Patient is in no acute distress. Oral mucosa is pink and dry. Neck is supple. Trachea is midline. There is no JVD. Heart was regular and tachycardic. Lungs are clear and equal bilaterally. Abdomen is soft. Bowel sounds are normal. There is no tenderness. Cranial nerves II through XII are intact. There is some generalized weakness but there is no focal motor or sensory deficits noted. Medical Decision Making: Differential diagnosis includes dehydration, electrolyte abnormality, urinary tract infection, and sepsis. CBC will be obtained to assess for leukocytosis and anemia. Basic metabolic profile will be obtained to assess for electrolyte abnormality and renal function. Urinalysis will be obtained to assess for urinary tract infection and hematuria. Patient was given IV fluids. Basic metabolic profile was reviewed. Sodium was elevated at 152 and chloride was elevated at 126. CO2 was slightly low at 20. BUN was elevated at 52. Creatinine was normal at 1.0. Glucose was slightly elevated at 201. CBC was reviewed. There is a mild leukocytosis of 12.9. The hemoglobin was low at 7.9 and hematocrit was 27.6. Urinalysis was reviewed. Leukocyte esterase was 100 with 5-10 white blood cells and 1+ bacteria. Case was discussed with the hospitalist. She will admit the patient to her service. Patient and family understood and were agreeable with the plan. All questions were answered. Discharge Plan Dx/Rx/DC Orders Clinical Impression: Physical debility, Hypernatremia, Pressure ulcer Disposition Disposition: Acute Care Hospital [facility] Discharge Date/Time: 02/05/24 20:41
[2024-02-05 16:22] LABS: Anion Gap 6 (5-15); BUN 52 mg/dL (7-18); BUN/Creat Ratio 52.1 RATIO (10-20); Calcium,Total 9.7 mg/dL (8.5-10.1); Chloride 126 mmol/L (98-107); EST Glomerular Filtration Rate 57 mL/min (>60); Est Glom Filt Rate - Afr Amer 69 mL/min (>60); Estimated Creatinine Clearance 38.79 ml/min; Glucose 201 mg/dL (74-106); Potassium 4.5 mmol/L (3.5-5.1); Sodium Level 152 mmol/L (136-145)
[2024-02-05] MEDS: 0.9% Normal Saline (1000mL) 1,000 ML 999 ML IV (16:48)
[2024-02-05 17:07] VITALS: PULSE 97; RESP 12
--- NOTE | 2024-02-05 18:43 | PCM.HP.STD ---
HPI - General General Date of Admission: 02/05/24 Date of Service: 02/05/24 Chief Complaint: Abnormal labs HPI Narrative The patient is a 78 y/o F w/ PMHx: Diabetes mellitus type II w/ chronic neuropathy, HTN, Chronic pain syndrome, Chronic anemia/Fe deficiency anemia, Anxiety and Depression, CAD s/p CABG, Former tobacco use, Metastatic breast cancer to the spine/bones of unclear exact location w/ ongoing palliative radiation with last treatment on day of presentation who presents to the [facility] ED on 02/05/2024 secondary to abnormal labs drawn on day of presentation at her current skilled facility with reported history of evidence of acute kidney injury 2 days prior with BUN/creatinine at that time 92/2.81 with sodium at that point 152 with unclear exact treatments at the facility but unfortunately repeat labs despite improvement of her acute kidney injury had ongoing elevated sodium prompting referral to the ED be cautious. Workup in the ED included T98, heart rate 112, BP 142/54, respiratory rate 16, 98% on room air with most recent repeat vitals heart rate 97, respiratory rate 12, 100% room air, BMP with sodium 152, chloride 126, carbon oxide 20, BUN/ Creatinine 52/1.0, glucose 201 with no other labs obtained per ED physician. From discussions with patient family she did have spinal surgery because of the metastatic disease with possibly a fusion and does have some recent concern for possible skin infection and was recently started on antibiotic therapy but it is unclear exactly which and from assessment of the wounds they do not appear highly concerning. Patient's family also notes that she has not been able to take oral intake and has had difficulty swallowing. Patient in the ED does have significant thrush and they states she was only recently started on oral nystatin but it appears maybe they have only been able to painted. Patient also does have posterior decubitus ulcers stage II to stage III which was also discussed with patient family. [facility] Medical History Psoriasis Diabetic peripheral neuropathy Dermatophytosis Macular degeneration Hypercholesteremia Anemia Metastatic bone tumor Metastatic disease Cancer related pain Hypertension Breast cancer Diabetes Home Medications ?Medication ?Instructions ?Recorded ?Last Taken ?Type aspirin 81 mg chewable tablet 81 mg PO DAILY@0800 prophylaxis 01/01/13 1 Day Ago History ~05/07/16 cyanocobalamin (vitamin B-12) 1,000 mcg PO DAILY vitamin 01/01/13 Unknown History 1,000 mcg/mL oral drops (Vitamin B-12) [id number]-minerals 1 ea PO DAILY 09/23/17 Unknown History (Multiple Vitamin, Womens tablet) ibuprofen 600 mg tablet 600 mg PO Q8H PRN PRN pain #20 03/08/22 Unknown Rx TABLETS enalapril maleate 20 mg tablet 20 mg PO BID BP 12/14/23 Unknown History ferrous sulfate 140 mg (45 mg 140 mg PO DAILY SUPPLEMENT 12/14/23 Unknown History iron) tablet,extended release (Slow Release Iron) meloxicam 15 mg tablet 15 mg PO DAILY PRN pain 12/14/23 Unknown History metformin 1,000 mg tablet 1,000 mg PO BID DM 12/14/23 Unknown History oxycodone 5 mg tablet 5 mg PO Q8H PRN PRN severe pain 12/14/23 Unknown History Lactobacillus rhamnosus GG 10 1 cap PO QDAY 01/27/24 Unknown History billion cell capsule (Culturelle) acetaminophen 325 mg chewable 650 mg PO Q4-6H PRN 01/27/24 Unknown History tablet aluminum-magnesium hydroxide 225 ml PO .prn 01/27/24 Unknown History mg-200 mg/5 mL oral suspension ascorbic acid (vitamin C) 500 mg mg PO 01/27/24 Unknown History capsule bisacodyl 10 mg rectal suppository 10 mg [place] ONCE 01/27/24 Unknown History mirtazapine 15 mg tablet (Remeron) 15 mg PO QDAY 01/27/24 Unknown History morphine 15 mg tablet,extended 15 mg PO Q12H 01/27/24 Unknown History release nystatin 100,000 unit/mL oral 10 ml PO TID 01/27/24 Unknown History suspension ondansetron HCl 4 mg tablet 4 mg PO Q8H 01/27/24 Unknown History sennosides 8.6 mg-docusate sodium 1 tab-cap PO QHS 01/27/24 Unknown History 50 mg tablet (Senna with Docusate Sodium) Allergy/AdvReac Type Severity Reaction Status Date / Time acetaminophen (From Vicodin) AdvReac Vomiting Verified 02/05/24 15:28 hydrocodone bitartrate (From AdvReac Vomiting Verified 02/05/24 15:28 Vicodin) Family History (Updated 02/05/24 @ 20:[address] Brittney Simental MD) Mother Diabetes Father Hypertension Surgical History (Updated 02/05/24 @ 20:[address] Brittney Simental MD) History of spinal surgery History of coronary artery bypass graft Social History (Updated 02/05/24 @ 20:[address] Brittney Simental MD) household members: family housing: senior living Smoking Status: Former smoker how long ago did patient quit smoking: Quit > 50 years prior. alcohol intake: never substance use type: does not use ROS ROS Narrative Minimally verbally interactive w/ metastatic breast CA to spine, stable baseline per daughter report. Daughter and SNF gives her history. Review of Systems ROS Unobtainable: due to mental condition Vital Signs Vital Signs Vital Signs: 02/05/24 15:07 02/05/24 15:30 02/05/24 15:32 Temperature 98 F Temperature Source Axillary Pulse Rate 112 H 105 H Respiratory Rate 16 15 Respiratory Effort Normal Respiratory Pattern Normal Blood Pressure 142/54 H 135/56 H Blood Pressure Mean 83 82 Pulse Ox 98 100 Oxygen Delivery Method Room Air Room Air 02/05/24 17:07 Temperature Temperature Source Pulse Rate 97 Respiratory Rate 12 Respiratory Effort Respiratory Pattern Blood Pressure Blood Pressure Mean Pulse Ox Oxygen Delivery Method Weight Weight: 116 lb 13.52 oz Body Mass Index (BMI) 19.9 Physical Exam Narrative Physical Examination: General: Awake, alert, will nod to some questions but patient is minimally verbal which daughter reports has been her baseline since her breast cancer diagnosis with metastatic disease to the spine and bone, laying in the ED bed, fatigued appearing. Skin: Normal color, normal turgor, no icterus, no cyanosis except for very staged ecchymoses, abrasions, posterior spinal surgery with healing incisions with no obvious purulence or periwound erythema but reported recent infection, decubitus ulcers stage II-III appearance with no marked drainage or periwound erythema noted. HEENT: AT/NC, EOMI, PERRLA, dry MM, poor oral care evident, severe thrush, no carotid bruits or JVD noted. Lungs: Significantly diminished, greater bases, no rales, ronchi or wheezing. Heart: Tachycardic; no gallop, rub audible. Abdomen: Soft, cachectic, mild generalized discomfort but no rebound or guarding, ND, hyperactive BS, no markedly appreciated HSM but difficult as patient notes discomfort with full exam. Extremities: No cyanosis, no clubbing, no marked peripheral edema. Neurological: Patient awake, alert, oriented as noted, cognitive function decreased baseline secondary to likely metastatic breast cancer with mets to the spine with decreased verbal responsiveness and interactive dizziness which daughter notes is baseline, pupils equally reactive to light and accommodation, cranial nerves grossly appear normal but difficult exam, moving extremities, strength severely globally decreased. Psychiatric: Affect appears flat, fatigued, no acute evidence of depressive or anxiety feelings but does have underlying history. Results Lab / Micro Data 02/05/24 15:50 02/05/24 15:50 Labs: Laboratory Results - last 24 hr 02/05/24 15:50: Sodium 152 H, Potassium 4.5, Chloride 126 H, Carbon Dioxide 20.0 L, Anion Gap 6, BUN 52 H, Creatinine 1.00, Estim Creat Clear Calc 38.79, Est GFR (MDRD) Af Amer 69, Est GFR (MDRD) Non-Af 57 L, BUN/Creatinine Ratio 52.1 H, Glucose 201 H, Calcium 9.7 Assessment & Plan Assessment/Plan (1) Hypernatremia: PLAN: Plan The patient is a 78 y/o F w/ PMHx: Diabetes mellitus type II w/ chronic neuropathy, HTN, Chronic pain syndrome, Chronic anemia/Fe deficiency anemia, Anxiety and Depression, CAD s/p CABG, Former tobacco use, Metastatic breast cancer to the spine/bones of unclear exact location w/ ongoing palliative radiation with last treatment on day of presentation who presents to the [facility] ED on 02/05/2024 secondary to abnormal labs drawn on day of presentation at her current skilled facility with reported history of evidence of acute kidney injury 2 days prior with BUN/creatinine at that time 92/2.81 with sodium at that point 152 with unclear exact treatments at the facility but unfortunately repeat labs despite improvement of her acute kidney injury had ongoing elevated sodium prompting referral to the ED be cautious. #1. Acute Hypernatremia w/ recent LULU on CKD stage III unclear subtype based on GFR trending, now appears to be resolved: Potentially related to aggressive hydration at facility given acute kidney injury has resolved, admission BUN/creatinine 52/1.0, GFR 57, reportedly had been BUN/creatinine 92/2.812 days prior, will admit to medical surgical floor given stable vital signs, will obtain urine osmolality as well as urine sodium to monitor further for underlying etiology, in the interim we will continue judicious IV fluid with D5W administration and will also obtain hepatic profile as well as CBC, magnesium and phosphorus levels, will maintain on fall and aspiration precautions, continue further evaluation and treatment as noted. PT/OT/case management also consulted for discharge planning. #2. Dysphagia, unclear type, unclear exact timeline but possibly complicated by severe thrush concurrently: Per discussion with family be cautious will maintain n.p.o. status, initiate on aggressive nystatin swish and swallow versus painting is only able with speech therapy consultation, aspiration precautions. #3. Postoperative potential skin/back incision infection, unclear organism, unclear timeline: Per patient family reports she was recently started on an antibiotic therapy for possible infection to the incisions however they are well-appearing in the ED and awaiting on clarification of her antibiotic therapy, once obtained would resume this agents. Will consult wound RN and continue dressing changes. #4. Metastatic breast cancer: Patient with mets to the spine/bones of unclear exact location w/ ongoing palliative radiation with last treatment on day of presentation with unfortunately significantly poor prognosis, magnesium and phosphorus levels requested, encourage continued outpatient follow-up with oncology/radiation as previously arranged. #5. CAD: Status post CABG, unclear exact specific interventions as family is unaware, maintain on [place] aspirin, holding all other oral regimen, resume once clinically appropriate. #6. Chronic normocytic anemia/Fe deficiency anemia: Awaiting admission CBC, most recent baseline has been primarily 7-8 range, temporally holding iron supplementation given dysphagia complaints awaiting speech therapy, will continue to trend CBC. #7. Diabetes mellitus type II with chronic neuropathy: Clarifying nursing facility insulin/oral diabetic regimen, currently will maintain n.p.o. status given concerns for dysphagia, in the interim will maintain on every 6 hours accu checks w/ ISS. #8. Chronic pain syndrome: Given concern for oral intake will temporally hold patient's oral oxycodone and long acting morphine, will transition to IV scheduled 4 mg IV q 6 with hold parameters and PRN overlapping regimen, will review usage from pharmacy and adjust as needed, encourage off loading. #9. Anxiety and Depression: We will hold patient home psychiatric regimen given dysfunction concerns, resume once clinically appropriate. #10. Decubitus ulcers stage II-III: Noted upon presentation, continue aggressive offloading, barrier agents as able, wound RN consulted. #11. Severe protein calorie malnutrition: Patient with significant reduced oral intake potentially over the last several weeks, BMI reduced, obvious muscle and fat loss with underlying significant metastatic cancer, nutrition consulted for recommendations. #12. Former tobacco use: Encourage continued tobacco cessation. #13. DVT prophylaxis: Lovenox. #14. CODE status: Patient ALEX is her daughter who is present and living will is not in place. Discussed CODE status at length including difference between FULL code, DNR-CCA and DNR-CC status. Following discussions about the differences in these status, requested Full Code status. Discussed patient current status and poor prognosis and her family understands this. Advanced Care Planning Face to Face Time: 16 minutes. Charges/Coding Visit Charges Inpatient E&M: 88837 Init Hosp L3 Procedures Hospitalists Procedures: 39766 Advncd Care Plan 30 Min
[2024-02-05 19:00] VITALS: BP 139/61; PULSE 106; RESP 13
[2024-02-05 19:08] LABS: Absolute Neutrophil Count 11.3 X10^3/uL (2.0-7.7); Basophil# 0.01 X10^3/uL; Basophil% 0.1 % (0-1); Eosinophil# 0.02 X10^3/uL; Eosinophils% 0.2 % (0-5); Hematocrit 27.6 % (37-47); Hemoglobin 7.9 g/dL (12.0-15.0); Lymphocyte % 5.4 % (19-41); Mean Corp Hgb Conc 28.6 g/dL (32-36); Mean Corpuscular Hgb 25.3 pg (27.0-32.0); Mean Corpuscular Volume 88.5 fL (81-99); Mean Platelet Vol. 10.7 fl (6.2-12.0); Monocyte# 0.83 X10^3/uL; Monocyte% 6.4 % (0-10); NRBC Flagged by Analyzer 0 % (0-5); Neutrophil # 11.25 X10^3/uL (2.7-7.7); Neutrophil % 87.4 % (47-70); Platelet Count 412 K/mm3 (150-450); RBC Distribution Width CV 17.1 % (11.6-14.6); RBC Distribution Width SD 55.1 fl (35.1-43.9); Red Blood Count 3.12 M/mm3 (4.2-5.4); White Blood Count 12.9 K/mm3 (4.4-11.0)
[2024-02-05] MEDS: Morphine 4 MG/ML Syringe IV (19:25)
[2024-02-05] MEDS: Ondansetron 4 MG/2 ML Vial IV (19:25)
[2024-02-05 19:27] LABS: AST(SGOT) 27 U/L (15-37); Alanine Aminotransfer ALT/SGPT 15 U/L (13-56); Albumin, Serum 2.2 g/dL (3.2-5.0); Alkaline Phosphatase 85 U/L (45-117); Bilirubin, Direct < 0.05 mg/dL (0.00-0.30); Magnesium 2.4 mg/dL (1.6-2.6); Phosphorus 2.7 mg/dL (2.5-4.9); Protein, Total 7.2 g/dL (6.4-8.2)
[2024-02-05 19:59] LABS: Mucous, Urine 0 SEEN /hpf (<or=2+)
--- NOTE | 2024-02-05 19:59 | ED.RN ---
secretary board of commissioners calling DC for med list
[2024-02-05 20:00] LABS: Color, Urine Yellow (Yellow); Glucose, Dipstick Normal (Normal); Ketone-Dipstick 50 mg/dl (Negative); Leukocyte Esterase-Dipstick 100 /ul (Negative); Nitrite-Dipstick Negative (Negative); Occult Blood-Urine Negative /ul (Negative); Protein-Dipstick 30 mg/dl (Negative); Specific Gravity, Urine 1.015 (1.002-1.030); Urine Bilirubin Dipstick Negative (Negative); Urine Clarity Clear (Clear); Urine Urobilinogen Normal (Normal)
[2024-02-05 20:07] VITALS: BP 139/61; PULSE 106; RESP 14; TEMP 36.6; O2SAT 100
[2024-02-05 20:18] LABS: Bacteria 1+ /hpf (None Seen); Red Blood Cells-Urine 0-5 SEEN /hpf (0-5); Squamous Epithelial Cells - UA 0-5 SEEN /hpf (5-10); White Blood Cells 5-10 SEEN /hpf (0-5); Yeast-Urine 1+ /hpf (None Seen)
--- NOTE | 2024-02-05 20:33 | CASEMGMT ---
Care Management Face to Face with patient for initial transition planning/care coordination assessment in the ED. This junior underwriter introduced self and role at [facility]. Patient lying in bed, with patient?s daughter, Ellen, and patient?s son, Sal, at bedside. Patient willing to participate in assessment, but patient required help from patient?s children to answer. Admitting Diagnosis: hypernatremia Other diagnosis history: Diabetes mellitus type II w/ chronic neuropathy, HTN, Chronic pain syndrome, Chronic anemia, metastatic breast cancer to the spine PCP: Emiliano Pelletier Specialists: Dr. Winn, Dr. Griffin Preferred Pharmacy: [facility] Insurance: [employer] Medicare, but in process of switching to Medicaid Prescription Benefit: yes Living Will/HPOA: HCPOA is daughter, Ellen. That paperwork was copied and added to her chart. Patient would like to complete a living will while admitted. LNOK: children: Sal Hughes Julia. Living Arrangements: currently at [facility] Transportation: [facility] was transporting while at [facility] DME: currently at [facility] HHC: none SNF/Rehab: [facility] Community Resources: none Patient goals: Patient wishes to discharge home, but patient expressed another SNF will likely be necessary due to patient?s health concerns. Disposition Plan: admission to acute; RN CM/SW to follow for discharge planning needs that may arise. Anju Nagy, SURVEY CREW CHIEF, [employer]
[2024-02-05 21:29] VITALS: BP 163/76; PULSE 100; RESP 18; TEMP 36.8; O2SAT 100
[2024-02-05 21:30] VITALS: BMI 17.9
[2024-02-05] MEDS: Morphine 2 MG/ML Syringe IV (22:09)
[2024-02-05] MEDS: Menthol/Lanolin/Calamine/Znox 113 GM Tube 1 APPLIC TOPICAL (22:20)
[2024-02-05] MEDS: Dextrose 5%-Water (1000mL Bag) 1,000 ML 100 ML IV (22:20)
[2024-02-05] MEDS: Pantoprazole Sodium 40 MG in 0.9% Normal Saline (100mL MB+) 100 ML 330 MG IV (22:21)
[2024-02-05] MEDS: NYSTATIN 500,000 UNIT/5 ML UDC 500000 UNIT PO (22:22)
[2024-02-05 23:31] LABS: Bedside Glucose 146 mg/dL (74-106)
[2024-02-06 00:13] LABS: Urine Sodium 46 mmol/L (Not Establ.)
[2024-02-06 00:40] LABS: Osmolality, Urine 618 mOsm/KG
[2024-02-06] MEDS: Morphine 4 MG/ML Syringe IV ×4 (01:40→17:59)
[2024-02-06 06:00] VITALS: BMI 17.9
[2024-02-06 06:03] VITALS: BP 146/66; PULSE 110; RESP 18; TEMP 36.5; O2SAT 100
[2024-02-06] MEDS: Insulin Lispro 100 UNIT/ML INSULN.PEN SC ×2 (06:14→16:25)
[2024-02-06 06:39] LABS: Bedside Glucose 204 mg/dL (74-106)
[2024-02-06 06:50] LABS: Absolute Lymphocyte Count 0.76 X10^3/uL (0.83-4.51); Absolute Neutrophil Count 11.2 X10^3/uL (2.0-7.7); Basophil# 0.03 X10^3/uL; Basophil% 0.2 % (0-1); Eosinophil# 0.05 X10^3/uL; Eosinophils% 0.4 % (0-5); Hematocrit 26.5 % (37-47); Hemoglobin 7.9 g/dL (12.0-15.0); Lymphocyte # 0.76 X10^3/ul (0.83-4.51); Lymphocyte % 5.8 % (19-41); Mean Corp Hgb Conc 29.8 g/dL (32-36); Mean Corpuscular Hgb 25.6 pg (27.0-32.0); Mean Corpuscular Volume 85.8 fL (81-99); Mean Platelet Vol. 10.3 fl (6.2-12.0); Monocyte# 1.04 X10^3/uL; Monocyte% 7.9 % (0-10); NRBC Flagged by Analyzer 0 % (0-5); Neutrophil % 84.9 % (47-70); Platelet Count 387 K/mm3 (150-450); RBC Distribution Width CV 17.2 % (11.6-14.6); RBC Distribution Width SD 53.1 fl (35.1-43.9); Red Blood Count 3.09 M/mm3 (4.2-5.4); White Blood Count 13.2 K/mm3 (4.4-11.0)
[2024-02-06 07:33] LABS: ALB/GLOB Ratio 0.4 RATIO (0.9-2.4); AST(SGOT) 20 U/L (15-37); Alanine Aminotransfer ALT/SGPT 9 U/L (13-56); Alkaline Phosphatase 84 U/L (45-117); Anion Gap 6 (5-15); BUN 40 mg/dL (7-18); BUN/Creat Ratio 43.9 RATIO (10-20); Calcium,Total 9.4 mg/dL (8.5-10.1); Chloride 128 mmol/L (98-107); Creatinine, Serum 0.91 mg/dL (0.55-1.02); EST Glomerular Filtration Rate 63 mL/min (>60); Est Glom Filt Rate - Afr Amer 77 mL/min (>60); Estimated Creatinine Clearance 38.37 ml/min; Globulin 4.9 g/dL (2.2-4.2); Glucose 207 mg/dL (74-106); Protein, Total 6.9 g/dL (6.4-8.2); Sodium Level 152 mmol/L (136-145)
[2024-02-06 09:00] VITALS: BP 137/74; PULSE 106; RESP 18; TEMP 36.7; O2SAT 100
--- NOTE | 2024-02-06 09:02 | CASEMGMT ---
Addendum entered by Nadya Johnston 02/06/24 09:13: Per [facility] patient will need a new pre-cert prior to returning to [facility]. Patient would also need a pre-cert if she went to a new facility. SW will talk with patient and family. Nadya MEDELLIN Original Note: MELVIN did send updates to [facility] via [employer]. SW inquired if patient would need a pre-cert to return. SW also notified [facility] that family expressed being unhappy with patient's care and may switch facilities. Nadya MEDELLIN
[2024-02-06] MEDS: Menthol/Lanolin/Calamine/Znox 113 GM Tube 1 APPLIC TOPICAL ×4 (09:34→21:29)
[2024-02-06] MEDS: Pantoprazole Sodium 40 MG in 0.9% Normal Saline (100mL MB+) 100 ML 330 MG IV ×2 (09:34→21:29)
[2024-02-06] MEDS: Enoxaparin 40 MG/0.4 ML Syringe SC (09:35)
[2024-02-06] MEDS: NYSTATIN 500,000 UNIT/5 ML UDC 500000 UNIT PO ×4 (09:36→21:29)
[2024-02-06 11:53] LABS: Bedside Glucose 189 mg/dL (74-106)
--- NOTE | 2024-02-06 13:01 | PN_ITS ---
Subjective Subjective Patient seen and examined. She was alert and lying in bed. She was quite lethargic. She appears confused. She knows her name and knows she is most otherwise unable to tell me anything else. Able to do comprehensive review of systems due to confusion. Sodium remains elevated at 152. She has otherwise remained hemodynamically stable. Objective Data Objective Data Vital Signs: Vital Signs Temp Pulse Resp BP Pulse Ox O2 Del Method 98.1 F 106 H 18 137/74 H 100 Room Air 02/06/24 09:00 02/06/24 09:00 02/06/24 09:00 02/06/24 09:00 02/06/24 09:00 02/06/24 11:05 Oxygen Delivery Method Room Air Weight: 105 lb 2.568 oz Body Mass Index (BMI) 17.9 Intake & Output: Intake and Output for Last 24 Hours 02/04/24 02/05/24 02/06/24 23:59 23:59 23:59 Intake Total 1110 / 1110 1130 / 1130 Output Total 700 / 700 Balance 1110 / 1110 430 / 430 Lab / Micro Data 02/06/24 05:57 02/06/24 05:57 Labs: Laboratory Results - last 24 hr 02/05/24 15:50: WBC 12.9 H, RBC 3.12 L, Hgb 7.9 L, Hct 27.6 L, MCV 88.5, MCH 25.3 L, MCHC 28.6 L, RDW Std Deviation 55.1 H, RDW Coeff of Annika 17.1 H, Plt Count 412, MPV 10.7, Immature Gran % (Auto) 0.500, Neut % (Auto) 87.4 H, Lymph % (Auto) 5.4 L, Mckenzie % (Auto) 6.4, Eos % (Auto) 0.2, Baso % (Auto) 0.1, Absolute Neuts (auto) 11.3 H, Absolute Lymphs (auto) 0.70 L, Nucleated RBC % 0, Sodium 152 H, Potassium 4.5, Chloride 126 H, Carbon Dioxide 20.0 L, Anion Gap 6, BUN 52 H, Creatinine 1.00, Estim Creat Clear Calc 38.79, Est GFR (MDRD) Af Amer 69, Est GFR (MDRD) Non-Af 57 L, BUN/Creatinine Ratio 52.1 H, Glucose 201 H, Calcium 9.7, Phosphorus 2.7, Magnesium 2.4, Total Bilirubin 0.20, Direct Bilirubin < 0.05, AST 27, ALT 15, Alkaline Phosphatase 85, Total Protein 7.2, Albumin 2.2 L, G lobulin 5.0 H 02/05/24 19:45: Urine Color Yellow, Urine Clarity Clear, Urine pH 5.0, Ur Specific Aragon 1.015, Urine Protein 30 H, Urine Glucose (UA) Normal, Urine Ketones 50 H, Urine Occult Blood Negative, Urine Nitrite Negative, Urine Bilirubin Negative, Urine Urobilinogen Normal, Ur Leukocyte Esterase 100 H, Urine RBC 0-5 SEEN, Urine WBC 5-10 SEEN, Ur Squamous Epith Cells 0-5 SEEN, Urine Bacteria 1+, Urine Mucus 0 SEEN, Urine Yeast 1+, Urine Osmolality 618, Ur Random Sodium 46 02/05/24 22:30: POC Glucose 146 H 02/06/24 05:57: WBC 13.2 H, RBC 3.09 L, Hgb 7.9 L, Hct 26.5 L, MCV 85.8, MCH 25.6 L, MCHC 29.8 L, RDW Std Deviation 53.1 H, RDW Coeff of Annika 17.2 H, Plt Count 387, MPV 10.3, Immature Gran % (Auto) 0.800, Neut % (Auto) 84.9 H, Lymph % (Auto) 5.8 L, Mckenzie % (Auto) 7.9, Eos % (Auto) 0.4, Baso % (Auto) 0.2, Absolute Neuts (auto) 11.2 H, Absolute Lymphs (auto) 0.76 L, Nucleated RBC % 0, Sodium 152 H, Potassium 4.0, Chloride 128 H*, Carbon Dioxide 18.0 L, Anion Gap 6, BUN 40 H, Creatinine 0.91, Estim Creat Clear Calc 38.37, Est GFR (MDRD) Af Amer 77, Est GFR (MDRD) Non-Af 63, BUN/Creatinine Ratio 43.9 H, Glucose 207 H, Calcium 9.4, Total Bilirubin 0.20, AST 20, ALT 9 L, Alkaline Phosphatase 84, Total Protein 6.9, Albumin 2.0 L, Globulin 4.9 H, Albumin/Globulin Ratio 0.4 L 02/06/24 06:12: POC Glucose 204 H 02/06/24 11:17: POC Glucose 189 H Physical Exam Const alert Orientation / Consciousness: confused and lethargic HEENT normocephalic and head/scalp atraumatic Mouth: dry mucous membranes Eyes PERRL and EOMs intact bilaterally Neck no lymphadenopathy, supple and no JVD Lymph Lymphatic: no lymphadenopathy noted and no lymphedema noted Resp normal respiratory effort, normal air movement and clear to auscultation bilaterally Cardio regular rate, regular rhythm, S1 normal heart sound, S2 normal heart sound and no murmurs GI normal to inspection, nondistended, normoactive bowel sounds, soft to palpation, non-tender and non-distended Extremity normal capillary refill, no clubbing, cyanosis or edema and no calf tenderness General Extremity: no tenderness to palpation of joints or extremities Skin General Skin Exam: no breakdown Neuro CN's II-XII intact bilaterally, no focal motor deficits and no sensory deficits noted Motor Exam: general weakness Psych Psych Narrative: confused Mood & Affect: flat affect Assessment & Plan Assessment/Plan (1) Hypernatremia: PLAN: Plan #Hypernatremia * sodium is still 152 today. Was 152 in the ED. * on D5W; will increase to 125cc/hr. * trend sodium * #Dysphagia: currently NPO. Speech therapy consulted. #Metastatic breast cancer * has mets to the spine. * had radiation last week. * follow up with oncology on outpatient basis. * #CAD s/p CABG: on aspirin # Type 2 diabetes mellitus: * Also has chronic neuropathy. Insulin sliding scale. Accu-Cheks ACHS. Currently n.p.o. due to concerns about dysphagia #Anemia: Hemoglobin is 7.9. Has a baseline of hemoglobin between 8 and 9. Will monitor closely. #Chronic pain syndrome: On oxycodone and long-acting morphine. These were held as she is NPO. On IV morphine as needed #Anxiety and depression: on mirtazapine #Stage II-III decubitus ulcers: Present on admission. Prior treatment. Frequent turning. Wound care consulted. #Severe protein calorie malnutrition: Likely due to metastatic cancer. Nutrition consult #DVT prophylaxis: Lovenox Charges/Coding Visit Charges Inpatient E&M: 96185 Subs Hosp L2
--- NOTE | 2024-02-06 13:32 | CASEMGMT ---
DANA DYER in to discuss NOBLE form with patient/ dtr POA. RN MANISHA explained NOBLE form, patient dtr voiced understanding. Pt dtr signed form and filed in chart. Pt dtr provided with a copy of signed NOBLE form. Patient dtr had no further questions or concerns at this time.
--- NOTE | 2024-02-06 14:01 | CASEMGMT ---
MELVIN met with patient's daughter Ellen. Patient was sleeping. MELVIN spoke with Ellen regarding her concerns with [facility]. MELVIN asked if she would like a list of other nursing home facilities that take patient's insurance. Ellen said she would appreciate that. MELVIN also told Ellen about [employer] where family is allowed to put cameras in the room. MELVIN also will provide Ellen with that information. Nadya Johnston MSW LACIE
--- NOTE | 2024-02-06 14:15 | CASEMGMT ---
SW provided patient's daughter with?a list of [facility] facility providers including quality and resource use data and consistent with patient?s preferred geographic region, medical needs, and insurance network were provided from the [employer] Guide. SW asked that she pick 3-4 preferences and SW will follow up on Thursday. SW also provided her with information on [employer]. Plan: Likely new SNF pending family's choices and patient will require pre-cert. Nadya MEDELLIN
[2024-02-06 15:00] VITALS: BP 143/69; PULSE 103; RESP 18; TEMP 36.8; O2SAT 98
[2024-02-06] MEDS: Morphine 2 MG/ML Syringe IV ×2 (15:22→21:36)
[2024-02-06] MEDS: 0.9% Saline Lock 10 ML Syringe IV (15:22)
[2024-02-06] MEDS: Dextrose 5%-Water (1000mL Bag) 1,000 ML 125 ML IV (16:22)
[2024-02-06 16:57] LABS: Bedside Glucose 231 mg/dL (74-106)
--- NOTE | 2024-02-06 21:48 | NURSING ---
Pt refused vital signs, blood sugar and physical assessment at this time.
[2024-02-07] MEDS: Morphine 4 MG/ML Syringe IV ×4 (02:53→17:01)
[2024-02-07] MEDS: Dextrose 5%-Water (1000mL Bag) 1,000 ML 125 ML IV (02:56)
[2024-02-07] MEDS: Insulin Lispro 100 UNIT/ML INSULN.PEN SC ×4 (02:58→17:03)
[2024-02-07 02:59] VITALS: BP 149/82; PULSE 109; RESP 16; TEMP 37.7; O2SAT 99
[2024-02-07 03:21] LABS: Bedside Glucose 198 mg/dL (74-106)
[2024-02-07 05:17] LABS: Absolute Lymphocyte Count 0.75 X10^3/uL (0.83-4.51); Absolute Neutrophil Count 8.3 X10^3/uL (2.0-7.7); Basophil# 0.03 X10^3/uL; Basophil% 0.3 % (0-1); Eosinophil# 0.26 X10^3/uL; Eosinophils% 2.5 % (0-5); Hematocrit 24.2 % (37-47); Hemoglobin 7.2 g/dL (12.0-15.0); Lymphocyte # 0.75 X10^3/ul (0.83-4.51); Lymphocyte % 7.2 % (19-41); Mean Corp Hgb Conc 29.8 g/dL (32-36); Mean Corpuscular Hgb 25.4 pg (27.0-32.0); Mean Corpuscular Volume 85.2 fL (81-99); Mean Platelet Vol. 10.2 fl (6.2-12.0); Monocyte# 0.88 X10^3/uL; Monocyte% 8.5 % (0-10); NRBC Flagged by Analyzer 0 % (0-5); Neutrophil # 8.33 X10^3/uL (2.7-7.7); Neutrophil % 80.5 % (47-70); Platelet Count 335 K/mm3 (150-450); RBC Distribution Width CV 16.8 % (11.6-14.6); RBC Distribution Width SD 52.6 fl (35.1-43.9); Red Blood Count 2.84 M/mm3 (4.2-5.4); White Blood Count 10.4 K/mm3 (4.4-11.0)
[2024-02-07 05:38] LABS: Anion Gap 1 (5-15); BUN 26 mg/dL (7-18); Chloride 121 mmol/L (98-107); Creatinine, Serum 0.87 mg/dL (0.55-1.02); EST Glomerular Filtration Rate 67 mL/min (>60); Est Glom Filt Rate - Afr Amer 81 mL/min (>60); Estimated Creatinine Clearance 40.13 ml/min; Glucose 259 mg/dL (74-106); Potassium 3.8 mmol/L (3.5-5.1); Sodium Level 145 mmol/L (136-145)
[2024-02-07 08:09] LABS: Hematocrit 24.4 % (37-47); Hemoglobin 7.2 g/dL (12.0-15.0)
[2024-02-07 09:00] VITALS: BP 144/86; PULSE 105; RESP 15; TEMP 36.6; O2SAT 93
[2024-02-07] MEDS: Pantoprazole Sodium 40 MG in 0.9% Normal Saline (100mL MB+) 100 ML 330 MG IV ×2 (09:55→21:46)
[2024-02-07] MEDS: Morphine 2 MG/ML Syringe IV ×2 (09:55→21:45)
[2024-02-07] MEDS: NYSTATIN 500,000 UNIT/5 ML UDC 500000 UNIT PO ×4 (09:56→21:47)
[2024-02-07] MEDS: Menthol/Lanolin/Calamine/Znox 113 GM Tube 1 APPLIC TOPICAL ×4 (09:56→21:46)
[2024-02-07] MEDS: Enoxaparin 40 MG/0.4 ML Syringe SC (09:57)
--- NOTE | 2024-02-07 10:26 | PN_ITS ---
Subjective Subjective Patient seen and examined. She still remains lethargic. She had no other complaints and review of systems is otherwise negative. Objective Data Objective Data Vital Signs: Vital Signs Temp Pulse Resp BP Pulse Ox O2 Del Method 99.9 F H 109 H 16 149/82 H 99 Room Air 02/07/24 02:59 02/07/24 02:59 02/07/24 02:59 02/07/24 02:59 02/07/24 02:59 02/07/24 03:00 Oxygen Delivery Method Room Air Weight: 105 lb 2.568 oz Body Mass Index (BMI) 17.9 Intake & Output: Intake and Output for Last 24 Hours 02/05/24 02/06/24 02/07/24 23:59 23:59 23:59 Intake Total 1110 / 1110 1240 / 1240 1606.25 / 1606.25 Output Total 1000 / 1000 600 / 600 Balance 1110 / 1110 240 / 240 1006.25 / 1006.25 Medical Nutrition Assessment Dietitian: Malnutrition Criteria Met Start: 02/06/24 16:29 Freq: Status: Active Protocol: Document 02/06/24 16:29 RMA (Rec: 02/06/24 16:29 RMA [id number]) Nutrition Malnutrition Evidence of Malnutrition Exists Yes Malnutrition (severe): Chronic Evidenced By Suboptimal Energy Intake ( Severe),Weight Loss (Severe), Physical Changes (Severe) Clinical Problem Chronic Disease or Condition Related Malnutrition Etiology Severe protein-calorie malnutrition in the context of chronic metastatic disease related to inadequate oral intake, difficulty swallowing and increased energy expenditure Signs/Symptoms as evidenced by currently NPO, BMI 18.0, unintentional weight loss ~15-16% x 2-3 months, PO meeting less than 50% estimated nutrition needs x 2-3 weeks and severe muscle and fat wasting in the clavicle, face, arms and legs Status Active Problem Recommendation Dietitian Recommendations/Changes Advance PO as tolerated and as deemed safe to liberalized regular diet with PO Ensure Plus HP; consistency/texture as per PLATE CLEANER. Start enteral nutrition support if pt deemed unsafe for PO nutrition. Adjust ONS as able to optimize intake if PO diet advanced. Will monitor weights closely, likely acceleration of energy/ protein depletion. Lab / Micro Data 02/07/24 08:01 02/07/24 04:47 Labs: Laboratory Results - last 24 hr 12/21/24 11:17: POC Glucose 189 H 12/21/24 16:24: POC Glucose 231 H 02/07/24 02:49: POC Glucose 198 H 02/07/24 04:47: WBC 10.4, RBC 2.84 L, Hgb 7.2 L, Hct 24.2 L, MCV 85.2, MCH 25.4 L, MCHC 29.8 L, RDW Std Deviation 52.6 H, RDW Coeff of Annika 16.8 H, Plt Count 335, MPV 10.2, Immature Gran % (Auto) 1.000 H, Neut % (Auto) 80.5 H, Lymph % (Auto) 7.2 L, [place] % (Auto) 8.5, Eos % (Auto) 2.5, Baso % (Auto) 0.3, Absolute Neuts (auto) 8.3 H, Absolute Lymphs (auto) 0.75 L, Nucleated RBC % 0, Sodium 145, Potassium 3.8, Chloride 121 H, Carbon Dioxide 23.0, Anion Gap 1 L, BUN 26 H , Creatinine 0.87, Estim Creat Clear Calc 40.13, Est GFR (MDRD) Af Amer 81, Est GFR (MDRD) Non-Af 67, BUN/Creatinine Ratio 30.0 H, Glucose 259 H, Calcium 9.0 02/07/24 08:01: Hgb 7.2 L, Hct 24.4 L Physical Exam Const alert Orientation / Consciousness: confused and lethargic HEENT normocephalic, head/scalp atraumatic, moist oral mucous membranes and oropharynx normal Eyes PERRL and EOMs intact bilaterally Neck no lymphadenopathy, supple and no JVD Lymph Lymphatic: no lymphadenopathy noted and no lymphedema noted Resp normal respiratory effort, normal air movement and clear to auscultation bilaterally Cardio regular rate, regular rhythm, S1 normal heart sound, S2 normal heart sound and no murmurs GI normal to inspection, nondistended, normoactive bowel sounds, soft to palpation, non-tender and non-distended Extremity normal capillary refill, no clubbing, cyanosis or edema and no calf tenderness General Extremity: no tenderness to palpation of joints or extremities Skin General Skin Exam: no breakdown Neuro CN's II-XII intact bilaterally, no focal motor deficits and no sensory deficits noted Neuro Narrative: lethargic, confused Motor Exam: general weakness Psych Psych Narrative: confused Mood & Affect: flat affect Assessment & Plan Assessment/Plan (1) Hypernatremia: PLAN: Plan #Hypernatremia * sodium is down to 145 today. WIll dc D5W * #Dysphagia: currently NPO. Speech therapy consulted. #Metastatic breast cancer * has mets to the spine. * had radiation last week. * follow up with oncology on outpatient basis. * #CAD s/p CABG: on aspirin # Type 2 diabetes mellitus: * Also has chronic neuropathy. Insulin sliding scale. Accu-Cheks ACHS. Currently n.p.o. due to concerns about dysphagia #Anemia: * Hemoglobin is down to 7.2 today; was 7.9 yesterday. * Has a baseline of hemoglobin between 8 and 9. * Will monitor closely. * check iron profile and stool for occult blood * #Oral thrush: * On nystatin swish and swallow. Encourage patient to comply with this as an reluctant to place her on IV Diflucan just for the oral thrush if there are oral meds available. #Chronic pain syndrome: On oxycodone and long-acting morphine. These were held as she is NPO. On IV morphine as needed #Anxiety and depression: on mirtazapine #Stage II-III decubitus ulcers: Present on admission. Prior treatment. Frequent turning. Wound care consulted. #Severe protein calorie malnutrition: Likely due to metastatic cancer. Nutrition consult #DVT prophylaxis: Lovenox Disposition: for dc to SNF pending precert. Charges/Coding Visit Charges Inpatient E&M: 52773 Subs Hosp L2
[2024-02-07 11:36] LABS: Ferritin 292 ng/mL (8-252); Iron 22 ug/dL (50-170); Iron Binding Capacity,Total 144 ug/dL (250-450); PERCENT IRON SATURATION 15.3 % (15.0-55.0)
[2024-02-07 11:59] LABS: Bedside Glucose 166 mg/dL (74-106)
[2024-02-07 15:00] VITALS: BP 141/78; PULSE 102; RESP 15; TEMP 36.6; O2SAT 95
[2024-02-07 15:55] VITALS: O2SAT 96
[2024-02-07] MEDS: Ondansetron 4 MG/2 ML Vial IV (17:00)
[2024-02-07 17:11] LABS: Bedside Glucose 171 mg/dL (74-106)
[2024-02-07] MEDS: 0.9% Saline Lock 10 ML Syringe IV (21:46)
[2024-02-07 22:02] VITALS: BP 109/57; PULSE 92; RESP 15; TEMP 36.9; O2SAT 95
[2024-02-07 22:31] VITALS: O2SAT 96
[2024-02-08] VITALS (13 sets, daily range): BP systolic 106–157; BP diastolic 53–75; PULSE 88–118; RESP 16–18; TEMP 36.5–37.1; O2SAT 96–100; BMI 18.0
[2024-02-08] MEDS: Morphine 4 MG/ML Syringe IV ×3 (00:47→12:32)
[2024-02-08 01:33] LABS: Bedside Glucose 153 mg/dL (74-106)
[2024-02-08] MEDS: Insulin Lispro 100 UNIT/ML INSULN.PEN SC ×2 (06:19→23:46)
[2024-02-08 06:52] LABS: Bedside Glucose 171 mg/dL (74-106)
[2024-02-08] MEDS: Ondansetron 4 MG/2 ML Vial IV (07:43)
[2024-02-08] MEDS: 0.9% Saline Lock 10 ML Syringe IV ×2 (07:44→18:24)
[2024-02-08 07:51] LABS: Absolute Lymphocyte Count 0.86 X10^3/uL (0.83-4.51); Absolute Neutrophil Count 7.4 X10^3/uL (2.0-7.7); Basophil# 0.02 X10^3/uL; Basophil% 0.2 % (0-1); Eosinophil# 0.24 X10^3/uL; Eosinophils% 2.6 % (0-5); Hematocrit 23.2 % (37-47); Hemoglobin 6.7 g/dL (12.0-15.0); Lymphocyte # 0.86 X10^3/ul (0.83-4.51); Lymphocyte % 9.2 % (19-41); Mean Corp Hgb Conc 28.9 g/dL (32-36); Mean Corpuscular Hgb 24.7 pg (27.0-32.0); Mean Corpuscular Volume 85.6 fL (81-99); Mean Platelet Vol. 9.5 fl (6.2-12.0); Monocyte# 0.74 X10^3/uL; Monocyte% 7.9 % (0-10); NRBC Flagged by Analyzer 0 % (0-5); Neutrophil # 7.43 X10^3/uL (2.7-7.7); Neutrophil % 79.4 % (47-70); Platelet Count 267 K/mm3 (150-450); RBC Distribution Width CV 16.9 % (11.6-14.6); RBC Distribution Width SD 52.7 fl (35.1-43.9); Red Blood Count 2.71 M/mm3 (4.2-5.4); White Blood Count 9.4 K/mm3 (4.4-11.0)
[2024-02-08 08:13] LABS: Anion Gap 4 (5-15); BUN 23 mg/dL (7-18); BUN/Creat Ratio 26.3 RATIO (10-20); Calcium,Total 9.1 mg/dL (8.5-10.1); Chloride 120 mmol/L (98-107); Creatinine, Serum 0.88 mg/dL (0.55-1.02); EST Glomerular Filtration Rate 66 mL/min (>60); Est Glom Filt Rate - Afr Amer 80 mL/min (>60); Estimated Creatinine Clearance 39.84 ml/min; Glucose 180 mg/dL (74-106); Potassium 3.8 mmol/L (3.5-5.1); Sodium Level 146 mmol/L (136-145)
[2024-02-08] MEDS: NYSTATIN 500,000 UNIT/5 ML UDC 500000 UNIT PO ×4 (09:26→20:58)
[2024-02-08] MEDS: Pantoprazole Sodium 40 MG in 0.9% Normal Saline (100mL MB+) 100 ML 330 MG IV ×2 (09:26→21:14)
[2024-02-08] MEDS: Menthol/Lanolin/Calamine/Znox 113 GM Tube 1 APPLIC TOPICAL ×4 (09:27→20:57)
--- NOTE | 2024-02-08 12:46 | CASEMGMT ---
Social Work- SW met with pt to discuss pt preferences at discharge. SW introduced self and role. Pt son present in room; reports his sister (pt dtr) will be in at 1pm following a dr appt. Pt son shared concerns regarding current placement facility and shared that they would like to change to a facility that can better meet pt needs. Pt son reports that his sister/pt dtr has the SNF list and will select choices. SW provided support and education. SW will follow up with pt dtr upon her arrival. YAIR Slater
[2024-02-08 12:55] LABS: Bedside Glucose 165 mg/dL (74-106)
--- NOTE | 2024-02-08 16:00 | CASEMGMT ---
Addendum entered by Susan Montero 02/08/24 16:54: [facility] declined referral. [facility] remains available to follow. YAIR Slater Original Note: Social Work- SW met with pt and pt dtr to discuss FOC and preferences at d/c. Pt dtr selected [facility] and [facility] as FOC. Pt dtr reports that pt has pending BRITTNY; pt dtr has been calling to make arrangements and reports that she has simply not finalized plans at this time. DCA notified. MELVIN remains available to follow. Plan: [facility] or [facility]; pending acceptance YAIR Slater
--- NOTE | 2024-02-08 16:11 | CASEMGMT ---
Addendum entered by Steffi Brunner 02/09/24 11:41: [facility] has declined. updated. Steffi Brunner DC Planning Asst. Addendum entered by Steffi Brunner 02/09/24 08:04: [facility] has declined. Steffi Brunner DC Planning Asst. Original Note: Discharge Planning Referral sent to [facility] and [facility]. Steffi Brunner DC Planning Asst.
--- NOTE | 2024-02-08 16:17 | PN.HOSP_ITS ---
Reason for Visit Reason for Visit: Diagnoses Hyperosmolality and hypernatremia (02/06/24) Objective Data Objective Data Vital Signs: Vital Signs Temp Pulse Resp BP Pulse Ox O2 Del Method 98.5 F 116 H 16 112/53 L 99 Room Air 02/08/24 12:25 02/08/24 14:37 02/08/24 12:25 02/08/24 12:25 02/08/24 12:25 02/08/24 14:37 Oxygen Delivery Method Room Air Weight: 105 lb 9.623 oz Body Mass Index (BMI) 18.0 Intake & Output: Intake and Output for Last 24 Hours 02/06/24 02/07/24 02/08/24 23:59 23:59 23:59 Intake Total 1240 / 1240 1826.25 / 1826.25 110 / 110 Output Total 1000 / 1000 1300 / 1300 350 / 350 Balance 240 / 240 526.25 / 526.25 -240 / -240 Medical Nutrition Assessment Dietitian: Malnutrition Criteria Met Start: 02/06/24 16:29 Freq: Status: Active Protocol: Document 02/06/24 16:29 RMA (Rec: 02/06/24 16:29 RMA [id number]) Nutrition Malnutrition Evidence of Malnutrition Exists Yes Malnutrition (severe): Chronic Evidenced By Suboptimal Energy Intake ( Severe),Weight Loss (Severe), Physical Changes (Severe) Clinical Problem Chronic Disease or Condition Related Malnutrition Etiology Severe protein-calorie malnutrition in the context of chronic metastatic disease related to inadequate oral intake, difficulty swallowing and increased energy expenditure Signs/Symptoms as evidenced by currently NPO, BMI 18.0, unintentional weight loss ~15-16% x 2-3 months, PO meeting less than 50% estimated nutrition needs x 2-3 weeks and severe muscle and fat wasting in the clavicle, face, arms and legs Status Active Problem Recommendation Dietitian Recommendations/Changes Advance PO as tolerated and as deemed safe to liberalized regular diet with PO Ensure Plus HP; consistency/texture as per CASING SEWER. Start enteral nutrition support if pt deemed unsafe for PO nutrition. Adjust ONS as able to optimize intake if PO diet advanced. Will monitor weights closely, likely acceleration of energy/ protein depletion. Lab / Micro Data 02/08/24 07:23 02/08/24 07:23 Labs: Laboratory Results - last 24 hr 02/07/24 16:52: POC Glucose 171 H 02/08/24 00:41: POC Glucose 153 H 02/08/24 06:16: POC Glucose 171 H 02/08/24 07:23: WBC 9.4, RBC 2.71 L, Hgb 6.7 L, Hct 23.2 L, MCV 85.6, MCH 24.7 L , MCHC 28.9 L, RDW Std Deviation 52.7 H, RDW Coeff of Annika 16.9 H, Plt Count 267, MPV 9.5, Immature Gran % (Auto) 0.700, Neut % (Auto) 79.4 H, Lymph % (Auto) 9.2 L, [place] % (Auto) 7.9, Eos % (Auto) 2.6, Baso % (Auto) 0.2, Absolute Neuts (auto) 7.4, Absolute Lymphs (auto) 0.86, Nucleated RBC % 0, Sodium 146 H, Potassium 3.8, Chloride 120 H, Carbon Dioxide 22.0, Anion Gap 4 L, BUN 23 H, Creatinine 0.88, Estim Creat Clear Calc 39.84, Est GFR (MDRD) Af Amer 80, Est GFR (MDRD) Non-Af 66, BUN/Creatinine Ratio 26.3 H, Glucose 180 H, Calcium 9.1 02/08/24 12:27: POC Glucose 165 H Physical Exam Narrative Seen and examined Discussed with the patient's son present in the room. Bilateral lower extremity weakness and swelling in feet. Last BM 02/05/2024 Physical exam General: Awake, drowsy, orientation cannot be ascertained. Low pitched voice. HEENT: Atraumatic, PERRLA, EOMI, Normocephalic Oral: Thick white coating of tongue and posterior pharyngeal, oral thrush Neck: Supple, No JVD, Negative Carotid Bruits Chest wall/Lungs: Air entry diminished in bilateral lung bases. No crepitation/rhonchi Cardiovascular: Regular rate, Regular Rhythm, Normal S1, Normal S2, No M/G/R Abdomen: Bowel Sounds Present, Soft, Non Tender, Non-Distended : no dysuria. No renal angle tenderness. No suprapubic tenderness. Extremities: Bilateral feet edema, Capillary Refill Less than 3 Seconds Skin: No rashes, No breakdown Musculoskeletal: No Tenderness to Palpation of Joints or Extremities. Bilateral lower extremity weakness/paraplegia. Neurological: Drowsy and lethargic. Intermittent confusion. GCS 14. Psych/Mental Status: Flat affect Assessment & Plan Assessment/Plan (1) Hypernatremia: PLAN: Plan 70-year-old female was admitted for abnormal labs with increased BUN/creatinine, 92/2.81 drawn 2 days ago from [facility] where she was admitted for radiation therapy for metastatic breast cancer to spine. On the day of admission, BUN/creatinine improved 58/1.06. #Hypernatremia due to dehydration/poor oral intake 02/07 sodium is 146. D5W resumed as it was 145 yesterday. Patient does not have much oral intake. #Dysphagia most likely to see oral thrush/candidiasis: currently NPO. Speech therapy consulted. 02/07 on nystatin. On local exam, diffuse oral and pharyngeal thick white patch. Fluconazole IV started. #Metastatic breast cancer * has mets to the spine. * had radiation last week. * follow up with oncology on outpatient basis. 02/07: There is lower extremity weakness, paraplegia probably due to mets to the spine, compounded with poor nutrition. Patient's son denies stroke. #CAD s/p CABG: on aspirin # Type 2 diabetes mellitus: * Also has chronic neuropathy. Insulin sliding scale. Accu-Cheks ACHS. Currently n.p.o. due to concerns about dysphagia #Anemia: * Hemoglobin is down to 7.2 today; was 7.9 yesterday. * Has a baseline of hemoglobin between 8 and 9. * check iron profile and stool for occult blood 02/07 hemoglobin dropped to 6.7. Iron profile shows low iron, TIBC but elevated ferritin. Iron saturation 15%. Overall suggestive of acute on chronic inflammatory anemia. 1 unit PRBC ordered. #Chronic pain syndrome: On oxycodone and long-acting morphine. These were held as she is NPO. On IV morphine as needed #Anxiety and depression: on mirtazapine #Stage II-III decubitus ulcers: Present on admission. Prior treatment. Frequent turning. Wound care consulted. #Severe protein calorie malnutrition: Likely due to metastatic cancer. Nutrition consult #DVT prophylaxis: Lovenox Laboratory Results 02/07/24 16:52: POC Glucose 171 H 02/08/24 00:41: POC Glucose 153 H 02/08/24 06:16: POC Glucose 171 H 02/08/24 07:23: WBC 9.4, RBC 2.71 L, Hgb 6.7 L, Hct 23.2 L, MCV 85.6, MCH 24.7 L , MCHC 28.9 L, RDW Std Deviation 52.7 H, RDW Coeff of Annika 16.9 H, Plt Count 267, MPV 9.5, Immature Gran % (Auto) 0.700, Neut % (Auto) 79.4 H, Lymph % (Auto) 9.2 L, [place] % (Auto) 7.9, Eos % (Auto) 2.6, Baso % (Auto) 0.2, Absolute Neuts (auto) 7.4, Absolute Lymphs (auto) 0.86, Nucleated RBC % 0, Sodium 146 H, Potassium 3.8, Chloride 120 H, Carbon Dioxide 22.0, Anion Gap 4 L, BUN 23 H, Creatinine 0.88, Estim Creat Clear Calc 39.84, Est GFR (MDRD) Af Amer 80, Est GFR (MDRD) Non-Af 66, BUN/Creatinine Ratio 26.3 H, Glucose 180 H, Calcium 9.1 02/08/24 12:27: POC Glucose 165 H Charges/Coding Visit Charges Inpatient E&M: 28666 Subs Hosp L2
[2024-02-08] MEDS: Dextrose 5%-Water (1000mL Bag) 1,000 ML 60 ML IV (18:25)
[2024-02-08] MEDS: Morphine 2 MG/ML Syringe IV ×3 (18:36→23:43)
[2024-02-08] MEDS: Fluconazole IVPB 400 MG/200 ML BAG 100 MG IV (18:36)
[2024-02-08 19:02] LABS: Bedside Glucose 139 mg/dL (74-106)
[2024-02-09 00:08] LABS: Bedside Glucose 161 mg/dL (74-106)
[2024-02-09 00:15] VITALS: BP 136/72; PULSE 102; RESP 16; TEMP 36.8; O2SAT 100
[2024-02-09 00:38] VITALS: BP 125/86; PULSE 103; RESP 16; TEMP 36.6; O2SAT 99
[2024-02-09] MEDS: Morphine 2 MG/ML Syringe IV ×4 (03:41→17:52)
[2024-02-09 04:30] VITALS: BMI 18.4
[2024-02-09 06:03] LABS: Absolute Lymphocyte Count 0.92 X10^3/uL (0.83-4.51); Absolute Neutrophil Count 8.9 X10^3/uL (2.0-7.7); Basophil# 0.02 X10^3/uL; Basophil% 0.2 % (0-1); Eosinophil# 0.22 X10^3/uL; Hematocrit 25.4 % (37-47); Lymphocyte # 0.92 X10^3/ul (0.83-4.51); Lymphocyte % 8.3 % (19-41); Mean Corp Hgb Conc 31.5 g/dL (32-36); Mean Corpuscular Volume 85.8 fL (81-99); Mean Platelet Vol. 9.8 fl (6.2-12.0); Monocyte# 0.96 X10^3/uL; Monocyte% 8.6 % (0-10); NRBC Flagged by Analyzer 0 % (0-5); Neutrophil # 8.92 X10^3/uL (2.7-7.7); Platelet Count 241 K/mm3 (150-450); RBC Distribution Width CV 16.7 % (11.6-14.6); RBC Distribution Width SD 52.9 fl (35.1-43.9); Red Blood Count 2.96 M/mm3 (4.2-5.4); White Blood Count 11.1 K/mm3 (4.4-11.0)
[2024-02-09] MEDS: Insulin Lispro 100 UNIT/ML INSULN.PEN SC ×3 (06:11→17:46)
[2024-02-09 06:23] LABS: Anion Gap 4 (5-15); BUN 21 mg/dL (7-18); BUN/Creat Ratio 24.7 RATIO (10-20); Calcium,Total 8.8 mg/dL (8.5-10.1); Chloride 120 mmol/L (98-107); Creatinine, Serum 0.85 mg/dL (0.55-1.02); EST Glomerular Filtration Rate 69 mL/min (>60); Est Glom Filt Rate - Afr Amer 83 mL/min (>60); Estimated Creatinine Clearance 42.19 ml/min; Glucose 181 mg/dL (74-106); Potassium 3.8 mmol/L (3.5-5.1); Sodium Level 145 mmol/L (136-145)
[2024-02-09 06:37] LABS: Bedside Glucose 161 mg/dL (74-106)
--- NOTE | 2024-02-09 09:07 | WOUNDNOTE ---
wound photo: sacrum/lower back
--- NOTE | 2024-02-09 09:08 | WOUNDNOTE ---
wound photo: mid/upper back
--- NOTE | 2024-02-09 09:25 | CASEMGMT ---
Met with patient to complete NOBLE form. NOBLE form explained to patient who voiced understanding and signed form. Original form placed in pt?s chart and copy provided to patient. Steffi Brunner, Discharge Planning Asst
[2024-02-09 10:00] VITALS: BP 144/76; PULSE 105; RESP 16; TEMP 36.8; O2SAT 98
[2024-02-09] MEDS: Menthol/Lanolin/Calamine/Znox 113 GM Tube 1 APPLIC TOPICAL ×3 (11:04→22:07)
[2024-02-09] MEDS: Fluconazole IVPB 200 MG/100 ML BAG 100 MG IV (11:14)
[2024-02-09] MEDS: Pantoprazole Sodium 40 MG in 0.9% Normal Saline (100mL MB+) 100 ML 330 MG IV ×2 (11:15→22:06)
[2024-02-09] MEDS: NYSTATIN 500,000 UNIT/5 ML UDC 500000 UNIT PO ×3 (11:18→22:09)
[2024-02-09] MEDS: proCHLORPERazine 10 MG/2 ML Vial 5 MG IV (11:26)
[2024-02-09] MEDS: 0.9% Saline Lock 10 ML Syringe IV ×3 (11:27→17:53)
--- NOTE | 2024-02-09 12:16 | CASEMGMT ---
Discharge Planning Pts daughter, Ellen, updated that both [facility] and [facility] have declined referral. Ellen states that she will be in soon and will look at the list for alternate choices. SW updated. Steffi Brunner DC Planning Asst.
[2024-02-09 12:42] LABS: Bedside Glucose 209 mg/dL (74-106)
--- NOTE | 2024-02-09 15:12 | PN.HOSP_ITS ---
Reason for Visit Reason for Visit: Diagnoses Hyperosmolality and hypernatremia (02/06/24) Objective Data Objective Data Vital Signs: Vital Signs Temp Pulse Resp BP Pulse Ox O2 Del Method 98.3 F 105 H 16 144/76 H 98 Room Air 02/09/24 10:00 02/09/24 10:00 02/09/24 10:00 02/09/24 10:00 02/09/24 10:00 02/09/24 10:55 Oxygen Delivery Method Room Air Weight: 108 lb 0.424 oz Body Mass Index (BMI) 18.4 Intake & Output: Intake and Output for Last 24 Hours 02/07/24 02/08/24 02/09/24 23:59 23:59 23:59 Intake Total 1826.25 / 1826.25 420 / 420 210 / 210 Output Total 1300 / 1300 550 / 550 300 / 300 Balance 526.25 / 526.25 -130 / -130 -90 / -90 Medical Nutrition Assessment Dietitian: Malnutrition Criteria Met Start: 02/06/24 16:29 Freq: Status: Active Protocol: Document 02/06/24 16:29 RMA (Rec: 02/06/24 16:29 RMA [id number]) Nutrition Malnutrition Evidence of Malnutrition Exists Yes Malnutrition (severe): Chronic Evidenced By Suboptimal Energy Intake ( Severe),Weight Loss (Severe), Physical Changes (Severe) Clinical Problem Chronic Disease or Condition Related Malnutrition Etiology Severe protein-calorie malnutrition in the context of chronic metastatic disease related to inadequate oral intake, difficulty swallowing and increased energy expenditure Signs/Symptoms as evidenced by currently NPO, BMI 18.0, unintentional weight loss ~15-16% x 2-3 months, PO meeting less than 50% estimated nutrition needs x 2-3 weeks and severe muscle and fat wasting in the clavicle, face, arms and legs Status Active Problem Recommendation Dietitian Recommendations/Changes Advance PO as tolerated and as deemed safe to liberalized regular diet with PO Ensure Plus HP; consistency/texture as per VAT PACKER. Start enteral nutrition support if pt deemed unsafe for PO nutrition. Adjust ONS as able to optimize intake if PO diet advanced. Will monitor weights closely, likely acceleration of energy/ protein depletion. Lab / Micro Data 02/09/24 05:48 02/09/24 05:48 Labs: Laboratory Results - last 24 hr 02/07/24 08:01: Blood Type O POSITIVE, Antibody Screen NEGATIVE, Antibody Identification NEGATIVE ANTIBODY PANEL, Crossmatch See Detail 02/08/24 18:34: POC Glucose 139 H 02/08/24 23:46: POC Glucose 161 H 02/09/24 05:48: WBC 11.1 H, RBC 2.96 L, Hgb 8.0 L, Hct 25.4 L, MCV 85.8, MCH 27.0, MCHC 31.5 L D, RDW Std Deviation 52.9 H, RDW Coeff of Annika 16.7 H, Plt Count 241, MPV 9.8, Immature Gran % (Auto) 0.900, Neut % (Auto) 80.0 H, Lymph % (Auto) 8.3 L, [place] % (Auto) 8.6, Eos % (Auto) 2.0, Baso % (Auto) 0.2, Absolute Neuts (auto) 8.9 H, Absolute Lymphs (auto) 0.92, Nucleated RBC % 0, Sodium 145, Potassium 3.8, Chloride 120 H, Carbon Dioxide 21.0, Anion Gap 4 L, BUN 21 H, Creatinine 0.85, Estim Creat Clear Calc 42.19, Est GFR (MDRD) Af Amer 83, Est GFR (MDRD) Non-Af 69, BUN/Creatinine Ratio 24.7 H, Glucose 181 H, Calcium 8.8 02/09/24 06:07: POC Glucose 161 H 02/09/24 12:17: POC Glucose 209 H Physical Exam Narrative Seen and examined Discussed with the patient's daughter and granddaughter present in the room. Bilateral lower extremity weakness and swelling in feet. Last BM 02/05/2024. Her oral intake has increased Physical exam General: Awake, oriented x 3. Patient looks better. HEENT: Atraumatic, PERRLA, EOMI, Normocephalic Oral: Oral thrush is cleared from periphery of the tongue now it is more central. Neck: Supple, No JVD, Negative Carotid Bruits Chest wall/Lungs: Air entry diminished in bilateral lung bases. No crepitation/rhonchi Cardiovascular: Regular rate, Regular Rhythm, Normal S1, Normal S2, No M/G/R Abdomen: Bowel Sounds Present, Soft, Non Tender, Non-Distended : no dysuria. No renal angle tenderness. No suprapubic tenderness. Extremities: Bilateral feet edema, Capillary Refill Less than 3 Seconds Skin: No rashes, No breakdown Musculoskeletal: No Tenderness to Palpation of Joints or Extremities. Bilateral lower extremity weakness/paraplegia. Neurological: Drowsy and lethargic. Intermittent confusion. GCS 14. Psych/Mental Status: Flat affect Assessment & Plan Assessment/Plan (1) Hypernatremia: PLAN: Plan 70-year-old female was admitted for abnormal labs with increased BUN/creatinine, 92/2.81 drawn 2 days ago from [facility] where she was admitted for radiation therapy for metastatic breast cancer to spine. On the day of admission, BUN/creatinine improved 58/1.06. #Hypernatremia due to dehydration/poor oral intake 02/07 sodium is 146. D5W resumed as it was 145 yesterday. Patient does not have much oral intake. #Dysphagia most likely to see oral thrush/candidiasis: currently NPO. Speech therapy consulted. 02/07 on nystatin. On local exam, diffuse oral and pharyngeal thick white patch. Fluconazole IV started. 02/08: Speech therapist saw the patient in the morning and impression was minimal oral intake with VAT PACKER and intermittent throwing up and fluctuating alert. As per the daughter her oral intake has increased since yesterday. Patient states her swallowing is better. Discussed about the feeding tube with her daughter and she understood and she will think on it. #Metastatic breast cancer * has mets to the spine. * had radiation last week. * follow up with oncology on outpatient basis. 02/07: There is lower extremity weakness, paraplegia probably due to mets to the spine, compounded with poor nutrition. Patient's son denies stroke. #CAD s/p CABG: on aspirin # Type 2 diabetes mellitus: * Also has chronic neuropathy. Insulin sliding scale. Accu-Cheks ACHS. Currently n.p.o. due to concerns about dysphagia #Anemia: * Hemoglobin is down to 7.2 today; was 7.9 yesterday. * Has a baseline of hemoglobin between 8 and 9. * check iron profile and stool for occult blood 02/07 hemoglobin dropped to 6.7. Iron profile shows low iron, TIBC but elevated ferritin. Iron saturation 15%. Overall suggestive of acute on chronic inflammatory anemia. 1 unit PRBC ordered. 02/08 hemoglobin decreased to 8.0. #Chronic pain syndrome: On oxycodone and long-acting morphine. These were held as she is NPO. On IV morphine as needed #Anxiety and depression: on mirtazapine #Stage II-III decubitus ulcers: Present on admission. Prior treatment. Frequent turning. Wound care consulted. #Severe protein calorie malnutrition: Likely due to metastatic cancer. Nutrition consult #DVT prophylaxis: Lovenox Charges/Coding Visit Charges Inpatient E&M: 71230 Subs Hosp L2
--- NOTE | 2024-02-09 15:19 | CASEMGMT ---
Addendum entered by Susan Montero 02/09/24 15:24: MELVIN updated [facility] in [facility]. YAIR Slater Original Note: Social Work- SW met with pt and pt dtr to discuss [facility] and [facility] declinations. MELVIN reviewed SNF list with pt dtr; preference at this time is to return to [facility]. DCA advised of pt and family request for return. Plan: [facility]; return YAIR Slater
[2024-02-09 17:00] VITALS: BP 132/69; PULSE 107; RESP 18; TEMP 36.5; O2SAT 98
[2024-02-09] MEDS: Potassium Chloride 20 MEQ in Dextrose 5%-Water (1000mL Bag) 1,000 ML 50 MEQ IV (17:45)
[2024-02-09 18:06] LABS: Bedside Glucose 196 mg/dL (74-106)
[2024-02-09 22:00] VITALS: BP 160/89; PULSE 108; RESP 15; TEMP 37.2; O2SAT 98
[2024-02-10] MEDS: Insulin Lispro 100 UNIT/ML INSULN.PEN SC ×3 (00:34→12:00)
[2024-02-10 00:48] VITALS: BP 147/85; PULSE 97; RESP 15; O2SAT 100
[2024-02-10] MEDS: Morphine 2 MG/ML Syringe IV ×4 (00:53→20:47)
[2024-02-10 00:57] LABS: Bedside Glucose 194 mg/dL (74-106)
[2024-02-10 02:00] VITALS: O2SAT 99
[2024-02-10 03:23] VITALS: BP 141/81; PULSE 99; RESP 15
[2024-02-10] MEDS: proCHLORPERazine 10 MG/2 ML Vial 5 MG IV (03:48)
[2024-02-10 06:00] VITALS: BMI 18.4
[2024-02-10 06:06] LABS: Absolute Lymphocyte Count 0.78 X10^3/uL (0.83-4.51); Absolute Neutrophil Count 6.7 X10^3/uL (2.0-7.7); Basophil# 0.02 X10^3/uL; Basophil% 0.2 % (0-1); Eosinophil# 0.16 X10^3/uL; Eosinophils% 1.8 % (0-5); Hematocrit 26.4 % (37-47); Hemoglobin 8.1 g/dL (12.0-15.0); Lymphocyte # 0.78 X10^3/ul (0.83-4.51); Lymphocyte % 8.9 % (19-41); Mean Corp Hgb Conc 30.7 g/dL (32-36); Mean Corpuscular Hgb 26.6 pg (27.0-32.0); Mean Corpuscular Volume 86.8 fL (81-99); Mean Platelet Vol. 9.8 fl (6.2-12.0); Monocyte# 1.03 X10^3/uL; Monocyte% 11.8 % (0-10); NRBC Flagged by Analyzer 0.3 % (0-5); Neutrophil # 6.65 X10^3/uL (2.7-7.7); Platelet Count 219 K/mm3 (150-450); RBC Distribution Width CV 17.4 % (11.6-14.6); RBC Distribution Width SD 54.2 fl (35.1-43.9); Red Blood Count 3.04 M/mm3 (4.2-5.4); White Blood Count 8.8 K/mm3 (4.4-11.0)
[2024-02-10 06:30] LABS: Anion Gap 5 (5-15); BUN 17 mg/dL (7-18); Calcium,Total 8.7 mg/dL (8.5-10.1); Chloride 117 mmol/L (98-107); Creatinine, Serum 0.77 mg/dL (0.55-1.02); EST Glomerular Filtration Rate 77 mL/min (>60); Est Glom Filt Rate - Afr Amer 93 mL/min (>60); Estimated Creatinine Clearance 44.83 ml/min; Glucose 216 mg/dL (74-106); Potassium 3.8 mmol/L (3.5-5.1); Sodium Level 142 mmol/L (136-145)
[2024-02-10 06:58] LABS: Bedside Glucose 182 mg/dL (74-106)
[2024-02-10 09:31] VITALS: BP 139/89; PULSE 108; RESP 18; TEMP 37.1; O2SAT 98
[2024-02-10] MEDS: Fluconazole IVPB 200 MG/100 ML BAG 100 MG IV (11:14)
[2024-02-10] MEDS: Pantoprazole Sodium 40 MG in 0.9% Normal Saline (100mL MB+) 100 ML 330 MG IV ×2 (11:18→21:10)
[2024-02-10] MEDS: NYSTATIN 500,000 UNIT/5 ML UDC 500000 UNIT PO ×4 (11:44→21:08)
[2024-02-10] MEDS: Enoxaparin 40 MG/0.4 ML Syringe SC (11:44)
[2024-02-10] MEDS: Menthol/Lanolin/Calamine/Znox 113 GM Tube 1 APPLIC TOPICAL ×4 (11:46→20:59)
[2024-02-10] MEDS: Aspirin 300 MG Suppository RC (12:01)
--- NOTE | 2024-02-10 12:22 | PN.HOSP_ITS ---
Reason for Visit Reason for Visit: Diagnoses Hyperosmolality and hypernatremia (02/06/24) Objective Data Objective Data Vital Signs: Vital Signs Temp Pulse Resp BP Pulse Ox O2 Del Method 98.7 F 108 H 18 139/89 H 98 Room Air 02/10/24 09:31 02/10/24 09:31 02/10/24 09:31 02/10/24 09:31 02/10/24 09:31 02/10/24 09:34 Oxygen Delivery Method Room Air Weight: 108 lb 0.424 oz Body Mass Index (BMI) 18.4 Intake & Output: Intake and Output for Last 24 Hours 02/08/24 02/09/24 02/10/24 23:59 23:59 23:59 Intake Total 420 / 420 1370 / 1370 Output Total 550 / 550 600 / 800 350 / 350 Balance -130 / -130 770 / 570 -350 / -350 Medical Nutrition Assessment Dietitian: Malnutrition Criteria Met Start: 02/06/24 16:29 Freq: Status: Active Protocol: Document 02/06/24 16:29 RMA (Rec: 02/06/24 16:29 RMA [id number]) Nutrition Malnutrition Evidence of Malnutrition Exists Yes Malnutrition (severe): Chronic Evidenced By Suboptimal Energy Intake ( Severe),Weight Loss (Severe), Physical Changes (Severe) Clinical Problem Chronic Disease or Condition Related Malnutrition Etiology Severe protein-calorie malnutrition in the context of chronic metastatic disease related to inadequate oral intake, difficulty swallowing and increased energy expenditure Signs/Symptoms as evidenced by currently NPO, BMI 18.0, unintentional weight loss ~15-16% x 2-3 months, PO meeting less than 50% estimated nutrition needs x 2-3 weeks and severe muscle and fat wasting in the clavicle, face, arms and legs Status Active Problem Recommendation Dietitian Recommendations/Changes Advance PO as tolerated and as deemed safe to liberalized regular diet with PO Ensure Plus HP; consistency/texture as per MECHANICAL SUPERVISOR. Start enteral nutrition support if pt deemed unsafe for PO nutrition. Adjust ONS as able to optimize intake if PO diet advanced. Will monitor weights closely, likely acceleration of energy/ protein depletion. Lab / Micro Data 02/10/24 05:41 02/10/24 05:41 Labs: Laboratory Results - last 24 hr 02/07/24 08:01: Antibody Screen NEGATIVE 02/09/24 12:17: POC Glucose 209 H 02/09/24 17:42: POC Glucose 196 H 02/10/24 00:33: POC Glucose 194 H 02/10/24 05:41: WBC 8.8, RBC 3.04 L, Hgb 8.1 L, Hct 26.4 L, MCV 86.8, MCH 26.6 L , MCHC 30.7 L, RDW Std Deviation 54.2 H, RDW Coeff of Annika 17.4 H, Plt Count 219, MPV 9.8, Immature Gran % (Auto) 1.300 H, Neut % (Auto) 76.0 H, Lymph % (Auto) 8.9 L, [place] % (Auto) 11.8 H, Eos % (Auto) 1.8, Baso % (Auto) 0.2, Absolute Neuts (auto) 6.7, Absolute Lymphs (auto) 0.78 L, Nucleated RBC % 0.3, Sodium 142, Potassium 3.8, Chloride 117 H, Carbon Dioxide 20.0 L, Anion Gap 5, BUN 17, Creatinine 0.77, Estim Creat Clear Calc 44.83, Est GFR (MDRD) Af Amer 93, Est GFR (MDRD) Non-Af 77, BUN/Creatinine Ratio 22.0 H, Glucose 216 H, Calcium 8.7 02/10/24 06:24: POC Glucose 182 H Physical Exam Narrative Seen and examined Discussed with the patient's son and daughter present in the room. Bilateral lower extremity weakness and swelling in feet. Last BM 02/05/2024. N.p.o. did not move bowel. Physical exam General: Awake, oriented x 3. Patient looks better. HEENT: Atraumatic, PERRLA, EOMI, Normocephalic Oral: Oral thrush is cleared from periphery of the tongue now thick coating on central part of tongue. Neck: Supple, No JVD, Negative Carotid Bruits Chest wall/Lungs: Air entry diminished in bilateral lung bases. No crepitation/rhonchi Cardiovascular: Regular rate, Regular Rhythm, Normal S1, Normal S2, No M/G/R Abdomen: Bowel Sounds Present, Soft, Non Tender, Non-Distended : no dysuria. No renal angle tenderness. No suprapubic tenderness. Extremities: Bilateral feet edema, Capillary Refill Less than 3 Seconds Skin: No rashes, No breakdown Musculoskeletal: No Tenderness to Palpation of Joints or Extremities. No spine tenderness. Neurological: Awake. Low pitched voice. Bilateral lower extremity weakness/paraplegia. Psych/Mental Status: Flat affect Const alert Orientation / Consciousness: confused and lethargic HEENT normocephalic, head/scalp atraumatic, moist oral mucous membranes and oropharynx normal Eyes PERRL and EOMs intact bilaterally Neck no lymphadenopathy, supple and no JVD Lymph Lymphatic: no lymphadenopathy noted and no lymphedema noted Resp normal respiratory effort, normal air movement and clear to auscultation bilaterally Cardio regular rate, regular rhythm, S1 normal heart sound, S2 normal heart sound and no murmurs GI normal to inspection, nondistended, normoactive bowel sounds, soft to palpation, non-tender and non-distended Extremity normal capillary refill, no clubbing, cyanosis or edema and no calf tenderness General Extremity: no tenderness to palpation of joints or extremities Skin General Skin Exam: no breakdown Neuro CN's II-XII intact bilaterally, no focal motor deficits and no sensory deficits noted Neuro Narrative: lethargic, confused Motor Exam: general weakness Psych Psych Narrative: confused Mood & Affect: flat affect Assessment & Plan Assessment/Plan (1) Hypernatremia: PLAN: Plan 70-year-old female was admitted for abnormal labs with increased BUN/creatinine, 92/2.81 drawn 2 days ago from [facility] where she was admitted for radiation therapy for metastatic breast cancer to spine. On the day of admission, BUN/creatinine improved 58/1.06. #Hypernatremia due to dehydration/poor oral intake 02/07 sodium is 146. D5W resumed as it was 145 yesterday. Patient does not have much oral intake. 02/09: Sodium is improving 142. #Dysphagia most likely to see oral thrush/candidiasis: currently NPO. Speech therapy consulted. 02/07 on nystatin. On local exam, diffuse oral and pharyngeal thick white patch. Fluconazole IV started. 02/08: Speech therapist saw the patient in the morning and impression was minimal oral intake with MECHANICAL SUPERVISOR and intermittent throwing up and fluctuating alert. As per the daughter her oral intake has increased since yesterday. Patient states her swallowing is better. Discussed about the feeding tube with her daughter and she understood and she will think on it. 02/09: Speech therapist planning to do modified barium swallow tomorrow. Severe constipation: Patient not been eating since admission. Earlier was given but no response. Fleet enema. Dulcolax suppository. Lactulose 20 g p.o. 1 dose. #Metastatic breast cancer * has mets to the spine. * had radiation last week. * follow up with oncology on outpatient basis. 02/07: There is lower extremity weakness, paraplegia probably due to mets to the spine, compounded with poor nutrition. Patient's son denies stroke. #CAD s/p CABG: on aspirin # Type 2 diabetes mellitus: * Also has chronic neuropathy. Insulin sliding scale. Accu-Cheks ACHS. Currently n.p.o. due to concerns about dysphagia #Anemia: * Hemoglobin is down to 7.2 today; was 7.9 yesterday. * Has a baseline of hemoglobin between 8 and 9. * check iron profile and stool for occult blood 02/07 hemoglobin dropped to 6.7. Iron profile shows low iron, TIBC but elevated ferritin. Iron saturation 15%. Overall suggestive of acute on chronic inflammatory anemia. 1 unit PRBC ordered. 02/08 hemoglobin decreased to 8.0. #Chronic pain syndrome: On oxycodone and long-acting morphine. These were held as she is NPO. On IV morphine as needed #Anxiety and depression: on mirtazapine #Stage II-III decubitus ulcers: Present on admission. Prior treatment. Frequent turning. Wound care consulted. #Severe protein calorie malnutrition: Likely due to metastatic cancer. Nutrition consult #DVT prophylaxis: Lovenox Charges/Coding Visit Charges Inpatient E&M: 77102 Subs Hosp L2
[2024-02-10 12:24] LABS: Bedside Glucose 213 mg/dL (74-106)
[2024-02-10] MEDS: Potassium Chloride 20 MEQ in Dextrose 5%-Water (1000mL Bag) 1,000 ML 50 MEQ IV (13:52)
[2024-02-10] MEDS: Lactulose 20 GM/30 ML UDC PO (13:53)
[2024-02-10] MEDS: Fleet Enema 133 ML RC (16:03)
[2024-02-10 16:18] VITALS: BP 117/58; PULSE 108; RESP 18; TEMP 36.8; O2SAT 98
[2024-02-10 17:55] LABS: Bedside Glucose 145 mg/dL (74-106)
[2024-02-10 20:43] VITALS: BP 129/65; PULSE 102; RESP 20; TEMP 37; O2SAT 100
[2024-02-10] MEDS: 0.9% Saline Lock 10 ML Syringe IV (20:53)
[2024-02-11 01:04] LABS: Bedside Glucose 140 mg/dL (74-106)
[2024-02-11 03:25] VITALS: BP 132/72; PULSE 98; RESP 16; TEMP 36.7; O2SAT 96
[2024-02-11 05:07] LABS: Absolute Lymphocyte Count 0.95 X10^3/uL (0.83-4.51); Absolute Neutrophil Count 5.6 X10^3/uL (2.0-7.7); Basophil# 0.02 X10^3/uL; Basophil% 0.2 % (0-1); Eosinophil# 0.23 X10^3/uL; Eosinophils% 2.9 % (0-5); Hemoglobin 7.9 g/dL (12.0-15.0); Lymphocyte # 0.95 X10^3/ul (0.83-4.51); Lymphocyte % 11.8 % (19-41); Mean Corp Hgb Conc 30.4 g/dL (32-36); Mean Corpuscular Hgb 26.2 pg (27.0-32.0); Mean Corpuscular Volume 86.1 fL (81-99); Mean Platelet Vol. 9.9 fl (6.2-12.0); Monocyte# 1.17 X10^3/uL; Monocyte% 14.5 % (0-10); NRBC Flagged by Analyzer 0 % (0-5); Neutrophil # 5.59 X10^3/uL (2.7-7.7); Neutrophil % 69.2 % (47-70); Platelet Count 214 K/mm3 (150-450); RBC Distribution Width CV 17.6 % (11.6-14.6); RBC Distribution Width SD 54.6 fl (35.1-43.9); Red Blood Count 3.02 M/mm3 (4.2-5.4); White Blood Count 8.1 K/mm3 (4.4-11.0)
[2024-02-11 05:20] LABS: Anion Gap 5 (5-15); BUN 14 mg/dL (7-18); BUN/Creat Ratio 17.7 RATIO (10-20); Calcium,Total 8.6 mg/dL (8.5-10.1); Chloride 114 mmol/L (98-107); Creatinine, Serum 0.79 mg/dL (0.55-1.02); EST Glomerular Filtration Rate 75 mL/min (>60); Est Glom Filt Rate - Afr Amer 90 mL/min (>60); Estimated Creatinine Clearance 44.83 ml/min; Glucose 179 mg/dL (74-106); Potassium 4.1 mmol/L (3.5-5.1); Sodium Level 139 mmol/L (136-145)
[2024-02-11 06:00] VITALS: BMI 18.4
[2024-02-11] MEDS: Insulin Lispro 100 UNIT/ML INSULN.PEN SC ×3 (06:04→17:40)
[2024-02-11 06:09] VITALS: BP 140/87; PULSE 100; RESP 20; TEMP 36.7; O2SAT 100
[2024-02-11] MEDS: Morphine 2 MG/ML Syringe IV ×2 (06:12→23:00)
[2024-02-11] MEDS: 0.9% Saline Lock 10 ML Syringe IV ×4 (06:13→23:06)
[2024-02-11 07:14] LABS: Bedside Glucose 160 mg/dL (74-106)
[2024-02-11 10:07] VITALS: BP 160/80; PULSE 105; RESP 18; TEMP 36.9; O2SAT 100
[2024-02-11] MEDS: proCHLORPERazine 10 MG/2 ML Vial 5 MG IV (10:11)
[2024-02-11] MEDS: Menthol/Lanolin/Calamine/Znox 113 GM Tube 1 APPLIC TOPICAL ×4 (10:12→22:56)
[2024-02-11] MEDS: Aspirin 300 MG Suppository RC (10:12)
[2024-02-11] MEDS: NYSTATIN 500,000 UNIT/5 ML UDC 500000 UNIT PO ×4 (10:13→22:56)
[2024-02-11] MEDS: Pantoprazole Sodium 40 MG in 0.9% Normal Saline (100mL MB+) 100 ML 330 MG IV ×2 (10:17→22:55)
[2024-02-11] MEDS: Fluconazole IVPB 200 MG/100 ML BAG 100 MG IV (11:00)
--- NOTE | 2024-02-11 11:31 | CASEMGMT ---
Discharge Planning Updates sent to [facility] with request for precert to be submitted. Steffi Brunner DC Planning Asst.
[2024-02-11 12:17] LABS: Bedside Glucose 165 mg/dL (74-106)
--- NOTE | 2024-02-11 13:48 | ST.MBS ---
Modified Barium Swallow Patient Information Study Date: 02/11/24 Study Time: 13:45 Direct Billable Minutes: 112 Total Minutes procedure & reportin Diagnosis: Metastatic bone tumor C79.51; Physical debility R53.81 Referring Physician: Regino Chappell Medical History: PMH: DM type II w/ chronic neuropathy, HTN, Chronic pain syndrome, Chronic anemia/Fe deficiency anemia, Anxiety and Depression, CAD s/p CABG, Former tobacco use, Metastatic breast cancer to the spine/bones of unclear exact location w/ ongoing palliative radiation with last treatment on day of presentation to the ED. Pt presented to [facility] ED 02/05/2024 secondary to abnormal labs drawn on day of presentation at her current skilled facility with reported history of evidence of LULU 2 days prior with BUN/creatinine at that time 92/2.81 with sodium at that point 152 with unclear exact treatments at the facility but unfortunately repeat labs despite improvement of her LULU had ongoing elevated sodium prompting referral to the ED be cautious. In the ED< it was noted that she has had poor oral intake due to swallowing difficulty w/ significant thrush noted with pt recently started on oral nystatin. Pt was admitted for management of a pressure ulcer, hypernatremia, and physical debility amongst other comorbidities. Pt was referred for ST upon admission and recommended NPO due to fluctuating alertness w/ sips and chips allowed when fully alert. Pt's alertness has improved, but pt is currently dealing w/ nausea. She was recommended for MBSS today to further assess concerns for swallow dysfunction and aspiration. Of note, this morning trials of thin water by tsp and applesauce by tsp went well today w/ PLASMA SPECIALIST; however, limited trials were completed due to nausea. Current Diet Ordered: NPO - ok for sips and chips Penetration-Aspiration Scale Penetration-Aspiration Scale: OBJECTIVE ASSESSMENT OF SWALLOW FUNCTION (QUANTITATIVE ? PER TRIAL): PENETRATION / ASPIRATION SCALE (LOPEZ): 1 = does not enter airway 2 = enters airway/above vocal folds/ejected 3 = enters airway/above vocal folds/not ejected 4 = enters airway/contacts vocal folds/ejected 5 = enters airway/contacts vocal folds/not ejected 6 = enters airway/below vocal folds/ejected 7 = enters airway/below vocal folds/not ejected despite effort 8 = enters airway/below vocal folds/no effort VIDEOFLOROSCOPIC SCALE SCORE (LOPEZ): Grade I = aspiration of material that has penetrated into the laryngeal vestibule, intact cough reflex Grade II = aspiration < 10 % of the bolus, intact cough reflex Grade III = aspiration of < 10 % of the bolus, reduced cough reflex or aspiration of > 10 % of the bolus, intact cough reflex Grade IV = aspiration of > 10 % of the bolus, reduced cough reflex Penetration-Aspiration Scale Score Thin Liquid via teaspoon: Result: 1= does not enter airway Thin Liquid via teaspoon Trial 2: Result: 1= does not enter airway Thin Liquid via sequential sips: cup: Result: 2= enter airway/above vocal folds/ejected [place] Thick Liquid via large single sip: cup: Result: 2= enter airway/above vocal folds/ejected Pudding via teaspoon: Result: 1= does not enter airway Comment: Esophageal screen - Retention of pudding in the middle esophagus w/ retrograde flow remaining well below the UES. Thin Liquid via single sip: straw: Result: 2= enter airway/above vocal folds/ejected Comment: Esophageal screen - Liquid wash somewhat cleared retention of pudding in the middle esophagus, but majority of pudding retention remained. 1/4 Cookie: Result: 1= does not enter airway Comment: Very prolonged mastication of /4 Sherine mendez - pt chewed for 3min, 57sec on 1 bite and expressed being fatigued at end of study. Oral Phase Labial Seal: Escape beyond mid-chin Tongue Control During Bolus Hold: Posterior escape of greater than half of bolus Bolus Preparation/Mastication: Disorganized chewing/mashing with solid pieces of bolus unchewed Bolus Transport/Lingual Motion: Slowed tongue motion Oral Residue: Majority of bolus remaining (piecemeal deglutition of cookie) Pharyngeal Phase Initiation of Pharyngeal Swallow: Bolus head in pyriforms Soft Palate Elevation: Trace column of contrast/air between soft palate and pharyngeal wall Laryngeal Elevation: Comp. Superior move thyroid cart w/comp. apprx arytenoid cart-epig pet Anterior Hyoid Excursion: Partial anterior movement Epiglottic Movement: Complete inversion Laryngeal Vestibule Closure at Height of Swallow: Incomplete; narrow column of air/contrast in laryngeal vestibule Pharyngeal Stripping Wave: Present - complete Pharyngoesophageal Segment Opening: Parital distension and partial duration; parital obstruction of flow Tongue Base Retraction: Narrow column of contrast between tongue base & post. pharyngeal wall Pharyngeal Residue: Trace residue within or on pharyngeal structures Esophageal Phase Esophageal Clearance: Esophageal retention w/ retrograde flow below pharyngoesophageal seg. Diagnosis/Impression Diagnosis: Mod-sev oral dysphagia R13.11; Mild pharyngeal dysphagia R13.13 Impression: The oral phase is primarily marked by... -Very poor mastication abilities w/ 1/4 Sherine Doone coated in pudding taking patient moderate verbal cues and ~4 min to chew and swallow. Pt reporting feeling fatigued after cookie trial. -Decreased bolus control w/ posterior loss of >1/2 of liquid boluses to the pyriforms prior to swallow onset. -Slow tongue motion for A-P transport. The pharyngeal phase is primarily marked by... -Delayed swallow onset. -Mildly decreased TB retraction and UES opening/duration; however, w/ complete pharyngeal stripping wave pt had only trace pharyngeal residues. -Trace laryngeal penetration w/ full ejection w/ thin and mildly thick liquids. No aspiration observed. The esophageal phase is primarily marked by... -Retention of pudding in the middle esophagus w/ min retrograde flow. Liquid wash was somewhat effective in clearing retention of pudding. Recommendations Diet: Puree Textures (MOIST) and Thin Liquids Compensatory Strategies: Small Bites, Small Sips, Slow Rate, Feed only when alert, Alternate bites/solids and sips/liquids, Sitting upright and Remain sitting upright for 30 minutes after PO intake Supervision: 1:1 Close Supervision (Family ok to supervise if present) Recommend Repeat Modified Barium Swallow: TBD Need for Skilled Speech Therapy Services: Yes Comment: -Train the patient in use of strategies to decrease risk for aspiration and reflux aspiration. -Ongoing assessment of diet tolerance of recommended textures. Consider trials of minced and moist or soft and bite size textures in upcoming sessions to consider diet advancement if deemed appropriate by treating PLASMA SPECIALIST. -Train the patient in oral motor exercise program to improve bolus control and lingual coordination (lingual resistance and lingual coordination exercises). Recommended Referrals: GI Consult (PLASMA SPECIALIST messaged Dr. Chappell about esophageal retention and consideration for GI consult, especially if pt experiences nausea/vomiting as oral diet is resumed.) Education Completed: 1. Described result of evaluation., 4. Family/caregivers understand evaluation & agree w/ goals & tx plan. and 7. Pt requires further education on strategies & risks. Status Active ST Patient: Active Contact Information [facility]:: Denita Jack M.A. CCC-PLASMA SPECIALIST? Speech-Language Pathologist?? [facility] [address] [place] [address]? [email or web address]?? [phone]
[2024-02-11 14:00] VITALS: BP 146/72; PULSE 96; RESP 18; TEMP 36.8; O2SAT 98
--- NOTE | 2024-02-11 14:18 | PN.HOSP_ITS ---
Reason for Visit Reason for Visit: Diagnoses Hyperosmolality and hypernatremia (02/06/24) Objective Data Objective Data Vital Signs: Vital Signs Temp Pulse Resp BP Pulse Ox O2 Del Method 98.5 F 105 H 18 160/80 H 100 Room Air 02/11/24 10:07 02/11/24 10:07 02/11/24 10:07 02/11/24 10:07 02/11/24 10:07 02/11/24 10:41 Oxygen Delivery Method Room Air Weight: 108 lb 3.951 oz Body Mass Index (BMI) 18.4 Intake & Output: Intake and Output for Last 24 Hours 02/09/24 02/10/24 02/11/24 23:59 23:59 23:59 Intake Total 1370 / 1370 1335.83 / 1335.83 1220 / 1220 Output Total 600 / 800 470 / 795 325 / 325 Balance 770 / 570 865.83 / 540.83 895 / 895 Medical Nutrition Assessment Dietitian: Malnutrition Criteria Met Start: 02/06/24 16:29 Freq: Status: Active Protocol: Document 02/06/24 16:29 RMA (Rec: 02/06/24 16:29 RMA [id number]) Nutrition Malnutrition Evidence of Malnutrition Exists Yes Malnutrition (severe): Chronic Evidenced By Suboptimal Energy Intake ( Severe),Weight Loss (Severe), Physical Changes (Severe) Clinical Problem Chronic Disease or Condition Related Malnutrition Etiology Severe protein-calorie malnutrition in the context of chronic metastatic disease related to inadequate oral intake, difficulty swallowing and increased energy expenditure Signs/Symptoms as evidenced by currently NPO, BMI 18.0, unintentional weight loss ~15-16% x 2-3 months, PO meeting less than 50% estimated nutrition needs x 2-3 weeks and severe muscle and fat wasting in the clavicle, face, arms and legs Status Active Problem Recommendation Dietitian Recommendations/Changes Advance PO as tolerated and as deemed safe to liberalized regular diet with PO Ensure Plus HP; consistency/texture as per POWDERED METAL SUPERVISOR. Start enteral nutrition support if pt deemed unsafe for PO nutrition. Adjust ONS as able to optimize intake if PO diet advanced. Will monitor weights closely, likely acceleration of energy/ protein depletion. Lab / Micro Data 02/11/24 04:50 02/11/24 04:50 Labs: Laboratory Results - last 24 hr 02/10/24 17:32: POC Glucose 145 H 02/11/24 00:15: POC Glucose 140 H 02/11/24 04:50: WBC 8.1, RBC 3.02 L, Hgb 7.9 L, Hct 26.0 L, MCV 86.1, MCH 26.2 L , MCHC 30.4 L, RDW Std Deviation 54.6 H, RDW Coeff of Annika 17.6 H, Plt Count 214, MPV 9.9, Immature Gran % (Auto) 1.400 H, Neut % (Auto) 69.2, Lymph % (Auto) 11.8 L, [place] % (Auto) 14.5 H, Eos % (Auto) 2.9, Baso % (Auto) 0.2, Absolute Neuts (auto) 5.6, Absolute Lymphs (auto) 0.95, Nucleated RBC % 0, Sodium 139, Potassium 4.1, Chloride 114 H, Carbon Dioxide 21.0, Anion Gap 5, BUN 14, Creatinine 0.79, Estim Creat Clear Calc 44.83, Est GFR (MDRD) Af Amer 90, Est GFR (MDRD) Non-Af 75, BUN/Creatinine Ratio 17.7, Glucose 179 H, Calcium 8.6 02/11/24 06:01: POC Glucose 160 H 02/11/24 11:55: POC Glucose 165 H Micro: Microbiology 02/10/24 14:26 Stool Stool Occult Blood (MARGARITA) - Final Physical Exam Narrative Seen and examined No acute issues. Patient is moving bowel. Discussed with the patient's son and daughter present in the room. Bilateral lower extremity weakness and swelling in feet. Last BM 02/11/2024 Physical exam General: Awake, oriented x 3. Patient is more interactive. HEENT: Atraumatic, PERRLA, EOMI, Normocephalic Oral: Oral thrush is cleared from periphery of the tongue now thick coating on central part of tongue. Neck: Supple, No JVD, Negative Carotid Bruits Chest wall/Lungs: Air entry diminished in bilateral lung bases. No crepitation/rhonchi Cardiovascular: Regular rate, Regular Rhythm, Normal S1, Normal S2, No M/G/R Abdomen: Bowel Sounds Present, Soft, Non Tender, Non-Distended : no dysuria. No renal angle tenderness. No suprapubic tenderness. Extremities: Bilateral feet edema, Capillary Refill Less than 3 Seconds Skin: No rashes, No breakdown Musculoskeletal: No Tenderness to Palpation of Joints or Extremities. No spine tenderness. Neurological: Awake. Low pitched voice. Bilateral lower extremity weakness/paraplegia. Psych/Mental Status: Flat affect Assessment & Plan Assessment/Plan (1) Hypernatremia: PLAN: Plan 70-year-old female was admitted for abnormal labs with increased BUN/creatinine, 92/2.81 drawn 2 days ago from [facility] where she was admitted for radiation therapy for metastatic breast cancer to spine. On the day of admission, BUN/creatinine improved 58/1.06. #Hypernatremia due to dehydration/poor oral intake 02/07 sodium is 146. D5W resumed as it was 145 yesterday. Patient does not have much oral intake. 02/09: Sodium is improving 142. 02/10: Serum sodium normal 139. K4.1. D5W plus KCl for nutrition as patient is still NPO. #Dysphagia most likely to see oral thrush/candidiasis: currently NPO. Speech therapy consulted. 02/07 on nystatin. On local exam, diffuse oral and pharyngeal thick white patch. Fluconazole IV started. 02/08: Speech therapist saw the patient in the morning and impression was minimal oral intake with POWDERED METAL SUPERVISOR and intermittent throwing up and fluctuating alert. As per the daughter her oral intake has increased since yesterday. Patient states her swallowing is better. Discussed about the feeding tube with her daughter and she understood and she will think on it. 02/09: Speech therapist planning to do modified barium swallow tomorrow. 02/10 modified barium swallow not done yet. Severe constipation: Patient not been eating since admission. Earlier was given but no response. Fleet enema. Dulcolax suppository. Lactulose 20 g p.o. 1 dose. 02/10: Patient had bowel movement. Lactulose 10 g twice daily. #Metastatic breast cancer * has mets to the spine. * had radiation last week. * follow up with oncology on outpatient basis. 02/07: There is lower extremity weakness, paraplegia probably due to mets to the spine, compounded with poor nutrition. Patient's son denies stroke. #CAD s/p CABG: on aspirin # Type 2 diabetes mellitus: * Also has chronic neuropathy. Insulin sliding scale. Accu-Cheks ACHS. Currently n.p.o. due to concerns about dysphagia #Anemia: * Hemoglobin is down to 7.2 today; was 7.9 yesterday. * Has a baseline of hemoglobin between 8 and 9. * check iron profile and stool for occult blood 02/07 hemoglobin dropped to 6.7. Iron profile shows low iron, TIBC but elevated ferritin. Iron saturation 15%. Overall suggestive of acute on chronic inflammatory anemia. 1 unit PRBC ordered. 02/08 hemoglobin decreased to 8.0. 02/10: H&H 7.9/26%. Platelet count 214K. #Chronic pain syndrome: On oxycodone and long-acting morphine. These were held as she is NPO. On IV morphine as needed #Anxiety and depression: on mirtazapine #Stage II-III decubitus ulcers: Present on admission. Prior treatment. Frequent turning. Wound care consulted. #Severe protein calorie malnutrition: Likely due to metastatic cancer. Nutrition consult #DVT prophylaxis: Lovenox Charges/Coding Visit Charges Inpatient E&M: 74391 Subs Hosp L2
[2024-02-11] MEDS: Potassium Chloride 20 MEQ in Dextrose 5%-Water (1000mL Bag) 1,000 ML 50 MEQ IV (15:15)
--- NOTE | 2024-02-11 15:36 | CASEMGMT ---
Discharge Planning [facility] has obtained auth to admit. Steffi Brunner DC Planning Asst.
--- NOTE | 2024-02-11 16:05 | CASEMGMT ---
Social Work Chart reviewed today and noted patient is from [facility], with plan to return to [facility] at discharge (other SNFs had been explored and ruled out during this hospitalization with patient/family in agreement with return to [facility]). Patient has been at [facility] since 12.25.2023, greater than 30 days. Per Steffi, Discharge [facility] [place], precert obtained today. Spoke with Dr. Chappell to update. Patient not yet ready for discharge today. Per Steffi, precert is good fro 48 hours. Plan: Return to [facility], skilled level of care. Precert in place as of 02.11.24 for 48 hours (after this will have to obtain a new certification). -MANASA Gama
[2024-02-11 18:29] LABS: Bedside Glucose 151 mg/dL (74-106)
--- NOTE | 2024-02-11 18:47 | CON.PCM.GI_ITS ---
HPI Consult Data Date of Consult: 02/11/24 HPI Narrative Reason for Consultation: Abnormal swallowing study and esophageal dysphagia HPI Narrative: CISCO CORTEZ, is a 78 F with a history Metastatic breast cancer to the spine/bones of unclear exact location w/ ongoing palliative radiation with last treatment on day of presentation who presents to the [facility] ED on 02/05/2024 secondary to abnormal labs drawn. There is reported history of evidence of acute kidney injury 2 days prior with BUN/creatinine at that time 92/2.81 with sodium at that point 152 with unclear exact treatments at the facility but unfortunately repeat labs despite improvement of her acute kidney injury had ongoing elevated sodium prompting referral to the ED be cautious. Patient's family also notes that she has not been able to take oral intake and has had difficulty swallowing. Patient in the ED does have significant thrush and they states she was only recently started on oral nystatin but it appears maybe they have only been able to painted. Patient also does have posterior decubitus ulcers stage II to stage III which was also discussed with patient family. Pt was referred for ST upon admission and recommended NPO due to fluctuating alertness w/ sips and chips allowed when fully alert. Pt's alertness has improved, but pt is currently dealing w/ nausea. She was recommended for MBSS today to further assess concerns for swallow dysfunction and aspiration. The esophageal phase is primarily marked by retention of pudding in the middle esophagus w/ min retrograde flow. [facility] Medical History Psoriasis Diabetic peripheral neuropathy Dermatophytosis Macular degeneration Hypercholesteremia Anemia Metastatic bone tumor Metastatic disease Cancer related pain Hypertension Breast cancer Diabetes Home Medications ?Medication ?Instructions ?Recorded ?Last Taken ?Type aspirin 81 mg chewable tablet 81 mg PO DAILY@0800 prophylaxis 01/01/13 1 Day Ago History ~05/07/16 cyanocobalamin (vitamin B-12) 1,000 mcg PO DAILY vitamin 01/01/13 Unknown History 1,000 mcg/mL oral drops (Vitamin B-12) ueqosjyddcxy-Ze-cure-minerals 1 ea PO DAILY 09/23/17 Unknown History (Multiple Vitamin, Womens tablet) enalapril maleate 20 mg tablet 20 mg PO BID BP 12/14/23 Unknown History ferrous sulfate 140 mg (45 mg 140 mg PO DAILY SUPPLEMENT 12/14/23 Unknown History iron) tablet,extended release (Slow Release Iron) meloxicam 15 mg tablet 15 mg PO DAILY PRN pain 12/14/23 Unknown History metformin 1,000 mg tablet 1,000 mg PO BID DM 12/14/23 Unknown History oxycodone 5 mg tablet 5 mg PO Q8H PRN PRN severe pain 12/14/23 Unknown History Lactobacillus rhamnosus GG 10 1 cap PO QDAY 01/27/24 Unknown History billion cell capsule (Culturelle) acetaminophen 325 mg chewable 650 mg PO Q4-6H PRN fever or pain 01/27/24 Unknown History tablet aluminum-magnesium hydroxide 225 5 ml PO .prn 01/27/24 Unknown History mg-200 mg/5 mL oral suspension ascorbic acid (vitamin C) 500 mg 500 mg PO DAILY 01/27/24 Unknown History capsule bisacodyl 10 mg rectal suppository 10 mg LA ONCE PRN constipation 01/27/24 Unknown History mirtazapine 15 mg tablet (Remeron) 15 mg PO QHS 01/27/24 Unknown History morphine 15 mg tablet,extended 15 mg PO Q12H 01/27/24 Unknown History release nystatin 100,000 unit/mL oral 10 ml PO TID 01/27/24 Unknown History suspension ondansetron HCl 4 mg tablet 4 mg PO Q8H 01/27/24 Unknown History sennosides 8.6 mg-docusate sodium 1 tab-cap PO QHS 01/27/24 Unknown History 50 mg tablet (Senna with Docusate Sodium) ceftriaxone 1 gram solution for 1 g IM QHS 02/05/24 Unknown History injection Allergy/AdvReac Type Severity Reaction Status Date / Time acetaminophen (From Vicodin) AdvReac Vomiting Verified 02/05/24 15:28 hydrocodone bitartrate (From AdvReac Vomiting Verified 02/05/24 15:28 Vicodin) Family History Mother Diabetes Father Hypertension Surgical History History of spinal surgery History of coronary artery bypass graft Social History household members: family housing: shelter Smoking Status: Former smoker how long ago did patient quit smoking: Quit > 50 years prior. alcohol intake: never substance use type: does not use ROS ROS Narrative Minimally verbally interactive w/ metastatic breast CA to spine, stable baseline per daughter report. Review of Systems ROS Unobtainable: due to mental condition Physical Exam Narrative Seen and examined Physical exam General: Awake, oriented x 3. Patient is more interactive. HEENT: Atraumatic, PERRLA, EOMI, Normocephalic Oral: Oral thrush is cleared from periphery of the tongue now thick coating on central part of tongue. Neck: Supple, No JVD, Negative Carotid Bruits Chest wall/Lungs: Air entry diminished in bilateral lung bases. No crepitation/rhonchi Cardiovascular: Regular rate, Regular Rhythm, Normal S1, Normal S2, No M/G/R Abdomen: Bowel Sounds Present, Soft, Non Tender, Non-Distended : no dysuria. No renal angle tenderness. No suprapubic tenderness. Extremities: Bilateral feet edema, Capillary Refill Less than 3 Seconds Skin: No rashes, No breakdown Musculoskeletal: No Tenderness to Palpation of Joints or Extremities. No spine tenderness. Neurological: Awake. Low pitched voice. Bilateral lower extremity weakness/paraplegia. Psych/Mental Status: Flat affect Medical Records Data Medical Nutrition Assessment Dietitian: Malnutrition Criteria Met Start: 02/06/24 16:29 Freq: Status: Active Protocol: Document 02/06/24 16:29 RMA (Rec: 02/06/24 16:29 RMA [id number]) Nutrition Malnutrition Evidence of Malnutrition Exists Yes Malnutrition (severe): Chronic Evidenced By Suboptimal Energy Intake ( Severe),Weight Loss (Severe), Physical Changes (Severe) Clinical Problem Chronic Disease or Condition Related Malnutrition Etiology Severe protein-calorie malnutrition in the context of chronic metastatic disease related to inadequate oral intake, difficulty swallowing and increased energy expenditure Signs/Symptoms as evidenced by currently NPO, BMI 18.0, unintentional weight loss ~15-16% x 2-3 months, PO meeting less than 50% estimated nutrition needs x 2-3 weeks and severe muscle and fat wasting in the clavicle, face, arms and legs Status Active Problem Recommendation Dietitian Recommendations/Changes Advance PO as tolerated and as deemed safe to liberalized regular diet with PO Ensure Plus HP; consistency/texture as per GIS SPECIALIST. Start enteral nutrition support if pt deemed unsafe for PO nutrition. Adjust ONS as able to optimize intake if PO diet advanced. Will monitor weights closely, likely acceleration of energy/ protein depletion. Lab / Micro Data 02/11/24 04:50 02/11/24 04:50 Labs: Laboratory Results - last 24 hr 02/11/24 00:15: POC Glucose 140 H 02/11/24 04:50: WBC 8.1, RBC 3.02 L, Hgb 7.9 L, Hct 26.0 L, MCV 86.1, MCH 26.2 L , MCHC 30.4 L, RDW Std Deviation 54.6 H, RDW Coeff of Annika 17.6 H, Plt Count 214, MPV 9.9, Immature Gran % (Auto) 1.400 H, Neut % (Auto) 69.2, Lymph % (Auto) 11.8 L, Webster % (Auto) 14.5 H, Eos % (Auto) 2.9, Baso % (Auto) 0.2, Absolute Neuts (auto) 5.6, Absolute Lymphs (auto) 0.95, Nucleated RBC % 0, Sodium 139, Potassium 4.1, Chloride 114 H, Carbon Dioxide 21.0, Anion Gap 5, BUN 14, Creatinine 0.79, Estim Creat Clear Calc 44.83, Est GFR (MDRD) Af Amer 90, Est GFR (MDRD) Non-Af 75, BUN/Creatinine Ratio 17.7, Glucose 179 H, Calcium 8.6 02/11/24 06:01: POC Glucose 160 H 02/11/24 11:55: POC Glucose 165 H 02/11/24 17:38: POC Glucose 151 H Micro: Microbiology 02/10/24 14:26 Stool Stool Occult Blood (MARGARITA) - Final Assessment & Plan Assessment/Plan (1) Hypernatremia: PLAN: Plan 70-year-old female was admitted for abnormal labs. 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 She had been having dysphagia thought to be likely secondary to oral candidiasis with possible aspiration. She underwent speech therapy evaluation and was discovered to have episodes of regurgitation versus vomiting and possible aspiration secondary to oropharyngeal dysphagia and esophageal dysphagia. She should undergo an upper endoscopy to evaluate upper GI tract. The patient's family was explained alternatives, risk and benefits include not withstanding bleeding, infection, sepsis, perforation, need for emergent urgent . She will have an ASA of 3. Charges/Coding Visit Charges Inpatient E&M: 50832 Init Hosp L3
[2024-02-11 22:52] VITALS: BP 146/75; PULSE 91; RESP 20; TEMP 37.1; O2SAT 100
[2024-02-11] MEDS: Lactulose 20 GM/30 ML UDC 10 GM PO (22:56)
[2024-02-11] MEDS: Acetaminophen 325 MG Tablet 650 MG PO (23:00)
[2024-02-12] VITALS (14 sets, daily range): BP systolic 145–180; BP diastolic 66–104; PULSE 86–110; RESP 16–18; TEMP 36.1–37.1; O2SAT 97–100; BMI 18.4; BMI 18.6
[2024-02-12 00:30] LABS: Bedside Glucose 151 mg/dL (74-106)
[2024-02-12] MEDS: Acetaminophen 325 MG Tablet 650 MG PO (04:33)
[2024-02-12 06:20] LABS: Absolute Lymphocyte Count 0.86 X10^3/uL (0.83-4.51); Basophil# 0.02 X10^3/uL; Basophil% 0.2 % (0-1); Eosinophil# 0.15 X10^3/uL; Eosinophils% 1.6 % (0-5); Hematocrit 27.8 % (37-47); Hemoglobin 8.6 g/dL (12.0-15.0); Lymphocyte # 0.86 X10^3/ul (0.83-4.51); Lymphocyte % 9.2 % (19-41); Mean Corp Hgb Conc 30.9 g/dL (32-36); Mean Corpuscular Hgb 26.5 pg (27.0-32.0); Mean Corpuscular Volume 85.8 fL (81-99); Mean Platelet Vol. 9.6 fl (6.2-12.0); Monocyte# 1.16 X10^3/uL; Monocyte% 12.5 % (0-10); NRBC Flagged by Analyzer 0 % (0-5); Neutrophil # 6.98 X10^3/uL (2.7-7.7); Neutrophil % 75.1 % (47-70); Platelet Count 210 K/mm3 (150-450); RBC Distribution Width CV 17.7 % (11.6-14.6); RBC Distribution Width SD 54.8 fl (35.1-43.9); Red Blood Count 3.24 M/mm3 (4.2-5.4); White Blood Count 9.3 K/mm3 (4.4-11.0)
[2024-02-12 06:41] LABS: Anion Gap 3 (5-15); BUN 12 mg/dL (7-18); BUN/Creat Ratio 15.5 RATIO (10-20); Calcium,Total 8.9 mg/dL (8.5-10.1); Chloride 112 mmol/L (98-107); Creatinine, Serum 0.78 mg/dL (0.55-1.02); EST Glomerular Filtration Rate 76 mL/min (>60); Est Glom Filt Rate - Afr Amer 93 mL/min (>60); Estimated Creatinine Clearance 44.92 ml/min; Glucose 160 mg/dL (74-106); Potassium 4.3 mmol/L (3.5-5.1); Sodium Level 137 mmol/L (136-145)
[2024-02-12 07:08] LABS: Bedside Glucose 125 mg/dL (74-106)
--- NOTE | 2024-02-12 08:36 | WOUNDNOTE ---
wound photo: mid upper back
--- NOTE | 2024-02-12 08:37 | WOUNDNOTE ---
wound photo: lower back/sacrum
[2024-02-12] MEDS: Pantoprazole Sodium 40 MG in 0.9% Normal Saline (100mL MB+) 100 ML 330 MG IV ×3 (10:35→22:24)
[2024-02-12] MEDS: NYSTATIN 500,000 UNIT/5 ML UDC 500000 UNIT PO (10:36)
[2024-02-12] MEDS: Menthol/Lanolin/Calamine/Znox 113 GM Tube 1 APPLIC TOPICAL ×2 (11:13→13:44)
[2024-02-12] MEDS: Fluconazole IVPB 200 MG/100 ML BAG 100 MG IV (11:14)
[2024-02-12 12:33] LABS: Bedside Glucose 155 mg/dL (74-106)
--- NOTE | 2024-02-12 15:06 | PN.HOSP_ITS ---
Reason for Visit Reason for Visit: Diagnoses Hyperosmolality and hypernatremia (02/06/24) Objective Data Objective Data Vital Signs: Vital Signs Temp Pulse Resp BP Pulse Ox O2 Del Method 98.4 F 88 16 161/66 H 100 Room Air 02/12/24 11:54 02/12/24 11:54 02/12/24 11:54 02/12/24 11:54 02/12/24 11:54 02/12/24 14:43 Oxygen Delivery Method Room Air Weight: 108 lb 3.951 oz Body Mass Index (BMI) 18.6 Intake & Output: Intake and Output for Last 24 Hours 02/10/24 02/11/24 02/12/24 23:59 23:59 23:59 Intake Total 1335.83 / 1335.83 1220 / 1420 1530 / 1530 Output Total 470 / 795 325 / 575 300 / 300 Balance 865.83 / 540.83 895 / 845 1230 / 1230 Medical Nutrition Assessment Dietitian: Malnutrition Criteria Met Start: 02/06/24 16:29 Freq: Status: Active Protocol: Document 02/06/24 16:29 RMA (Rec: 02/06/24 16:29 RMA [id number]) Nutrition Malnutrition Evidence of Malnutrition Exists Yes Malnutrition (severe): Chronic Evidenced By Suboptimal Energy Intake ( Severe),Weight Loss (Severe), Physical Changes (Severe) Clinical Problem Chronic Disease or Condition Related Malnutrition Etiology Severe protein-calorie malnutrition in the context of chronic metastatic disease related to inadequate oral intake, difficulty swallowing and increased energy expenditure Signs/Symptoms as evidenced by currently NPO, BMI 18.0, unintentional weight loss ~15-16% x 2-3 months, PO meeting less than 50% estimated nutrition needs x 2-3 weeks and severe muscle and fat wasting in the clavicle, face, arms and legs Status Active Problem Recommendation Dietitian Recommendations/Changes Advance PO as tolerated and as deemed safe to liberalized regular diet with PO Ensure Plus HP; consistency/texture as per HYDRAULIC DESIGN ENGINEER. Start enteral nutrition support if pt deemed unsafe for PO nutrition. Adjust ONS as able to optimize intake if PO diet advanced. Will monitor weights closely, likely acceleration of energy/ protein depletion. Lab / Micro Data 02/12/24 06:10 02/12/24 06:10 Labs: Laboratory Results - last 24 hr 02/11/24 17:38: POC Glucose 151 H 02/11/24 23:10: POC Glucose 151 H 02/12/24 05:25: POC Glucose 125 H 02/12/24 06:10: WBC 9.3, RBC 3.24 L, Hgb 8.6 L, Hct 27.8 L, MCV 85.8, MCH 26.5 L , MCHC 30.9 L, RDW Std Deviation 54.8 H, RDW Coeff of Annika 17.7 H, Plt Count 210, MPV 9.6, Immature Gran % (Auto) 1.400 H, Neut % (Auto) 75.1 H, Lymph % (Auto) 9.2 L, Nolan % (Auto) 12.5 H, Eos % (Auto) 1.6, Baso % (Auto) 0.2, Absolute Neuts (auto) 7.0, Absolute Lymphs (auto) 0.86, Nucleated RBC % 0, Sodium 137, Potassium 4.3, Chloride 112 H, Carbon Dioxide 23.0, Anion Gap 3 L, BUN 12, Creatinine 0.78, Estim Creat Clear Calc 44.92, Est GFR (MDRD) Af Amer 93, Est GFR (MDRD) Non-Af 76, BUN/Creatinine Ratio 15.5, Glucose 160 H, Calcium 8.9 02/12/24 12:00: POC Glucose 155 H Micro: Microbiology 02/10/24 14:26 Stool Stool Occult Blood (MARGARITA) - Final Physical Exam Narrative Seen and examined No acute or new issues. Patient is moving bowel. Plan for EGD today. Discussed with the patient's son and daughter present in the room. Bilateral lower extremity weakness and swelling in feet. Last BM 02/11/2024 Physical exam General: Awake, oriented x 3. Patient is more interactive. HEENT: Atraumatic, PERRLA, EOMI, Normocephalic Oral: Oral thrush is cleared from periphery of the tongue now. Getting better. Neck: Supple, No JVD, Negative Carotid Bruits Chest wall/Lungs: Air entry diminished in bilateral lung bases. No crepitation/rhonchi Cardiovascular: Regular rate, Regular Rhythm, Normal S1, Normal S2, No M/G/R Abdomen: Bowel Sounds Present, Soft, Non Tender, Non-Distended : no dysuria. No renal angle tenderness. No suprapubic tenderness. Extremities: Bilateral feet edema, Capillary Refill Less than 3 Seconds Skin: No rashes, No breakdown Musculoskeletal: No Tenderness to Palpation of Joints or Extremities. No spine tenderness. Neurological: Awake. Low pitched voice. Bilateral lower extremity weakness/paraplegia. Psych/Mental Status: Flat affect Assessment & Plan Assessment/Plan (1) Hypernatremia: PLAN: Plan 70-year-old female was admitted for abnormal labs with increased BUN/creatinine, 92/2.81 drawn 2 days ago from [facility] where she was admitted for radiation therapy for metastatic breast cancer to spine. On the day of admission, BUN/creatinine improved 58/1.06. #Hypernatremia due to dehydration/poor oral intake 02/07 sodium is 146. D5W resumed as it was 145 yesterday. Patient does not have much oral intake. 02/09: Sodium is improving 142. 02/10: Serum sodium normal 139. K4.1. D5W plus KCl for nutrition as patient is still NPO. 02/11: Sodium 137. Electrolytes in normal range except chloride 112. #Dysphagia most likely to see oral thrush/candidiasis: currently NPO. Speech therapy consulted. 02/07 on nystatin. On local exam, diffuse oral and pharyngeal thick white patch. Fluconazole IV started. 02/08: Speech therapist saw the patient in the morning and impression was minimal oral intake with HYDRAULIC DESIGN ENGINEER and intermittent throwing up and fluctuating alert. As per the daughter her oral intake has increased since yesterday. Patient states her swallowing is better. Discussed about the feeding tube with her daughter and she understood and she will think on it. 02/09: Speech therapist planning to do modified barium swallow tomorrow. 02/10 modified barium swallow not done yet. 02/11: Patient is scheduled for EGD today. After that plan for discharge to [facility] Severe constipation: Patient not been eating since admission. Earlier was given but no response. Fleet enema. Dulcolax suppository. Lactulose 20 g p.o. 1 dose. 02/10: Patient had bowel movement. Lactulose 10 g twice daily. 02/04; constipation has resolved #Metastatic breast cancer * has mets to the spine. * had radiation last week. * follow up with oncology on outpatient basis. 02/07: There is lower extremity weakness, paraplegia probably due to mets to the spine, compounded with poor nutrition. Patient's son denies stroke. #CAD s/p CABG: on aspirin # Type 2 diabetes mellitus: * Also has chronic neuropathy. Insulin sliding scale. Accu-Cheks ACHS. Currently n.p.o. due to concerns about dysphagia #Anemia: * Hemoglobin is down to 7.2 today; was 7.9 yesterday. * Has a baseline of hemoglobin between 8 and 9. * check iron profile and stool for occult blood 02/07 hemoglobin dropped to 6.7. Iron profile shows low iron, TIBC but elevated ferritin. Iron saturation 15%. Overall suggestive of acute on chronic inflammatory anemia. 1 unit PRBC ordered. 02/08 hemoglobin decreased to 8.0. 02/10: H&H 7.9/26%. Platelet count 214K. 02/11: H&H 8.6/27.8%. Platelet count normal. #Chronic pain syndrome: On oxycodone and long-acting morphine. These were held as she is NPO. On IV morphine as needed #Anxiety and depression: on mirtazapine #Stage II-III decubitus ulcers: Present on admission. Prior treatment. Frequent turning. Wound care consulted. #Severe protein calorie malnutrition: Likely due to metastatic cancer. Nutrition consult #DVT prophylaxis: Lovenox Discharge plan discussed with the patient's son and daughter present in the room. Charges/Coding Visit Charges Inpatient E&M: 18887 Subs Hosp L2
--- NOTE | 2024-02-12 15:14 | CASEMGMT ---
Social Work- MELVIN met with pt and family who are awaiting pt EGD scheduled for 15:00 today. Pt family concerned about pt returning to SNF this evening and would like pt to remain overnight for observation. Pt family feels that pt has made considerable progress while here and thanked staff for their care. MELVIN updated physician of family request. Plan: CC; when medically ready. Precert good through Monday 02/12 YAIR Slater
--- NOTE | 2024-02-12 16:15 | EGD_PTH ---
PATIENT: CISCO CORTEZ LOC: [facility]3 U#:[id number] AGE/SX: 78/F ROOM: [facility] RE02/06/[address]: Dr. Regino Chappell MD : 1945 BED: 1 DIS: 02/13/2024 SPEC #: [id number] RECD: 02/12/24 18:01 STATUS: YUNI GALLARDO #: [id number] HENOK: 02/12/24 16:[address]: Mayank Adams DEPT: SURGICAL PATHOLOGY RECD BY: Kyaw Mckeon ENTERED: 02/15/24 09:35 SP TYPE: EGD BIOPSY [facility] DR: MD Dr. Emiliano Marr DO Dr. Nana Yaa Koram, MD Dr. Prakash Chand, MD Tissues: Esophagus, NOS Procedures: Surgery Specimen Level IV HEADER OPERATION: EGD with biopsy and cauterization PRE-OP DIAGNOSIS: Hypernatremia, dysphagia TISSUE SUBMITTED: Random esophagus biopsy MICROSCOPIC DIAGNOSIS Esophagus, random biopsy: Fragments of gastroesophageal mucosa with acute and chronic inflammation. Intestinal metaplasia (goblet cell metaplasia) not identified. See comment. 02/16/2024 COMMENT Alcian blue/PAS stain with matched control is used in the evaluation of the specimen. Increased number of eosinophils consistent with eosinophilic esophagitis are not seen. MICROSCOPIC DESCRIPTION Slides are reviewed. GROSS DESCRIPTION Received in fixative is one container labeled with the patient's name and designated Random esophagus biopsy. The specimen consists of multiple irregular fragments of light verma soft tissue that in aggregate measure 1.2 x 0.2 x 0.1 cm. The specimen is totally submitted in one cassette. 02/15/2024 TC:3 CPT:28394 ,07885
--- NOTE | 2024-02-12 16:21 | PCM.PRE.AN2 ---
ASA Classification* ASA Classification ASA Classification: 3 Assessment & Plan Anesthesia* Anesthesia Assessment Anesthesia Assessment: Discussed sedation and/or anesthesia options, risks, benefits, and alternatives with patient/parents/legal guardian/POA. Questions invited. The patient/parents/legal guardian/POA seems to understand and agrees to proceed with anesthesia plan. Reviewed the physical assessment, medical history, allergy history and patient home medications list prior to surgery/procedure/anesthetic and documented any changes. Performed airway and anesthesia risk assessments. Anesthesia Type Anesthesia Type: MAC History Source History Obtained from:: Patient and Chart Anesthesia Focused Assessment* Temperature: 98.4 F Pulse Rate: 88 Blood Pressure: 161/66 Respiratory Rate: 16 Pulse Ox: 100 Oxygen Delivery Method: Room Air Airway Assessment Mouth opens: >3 cm Mallampati Score: II Teeth Condition: Missing (Patient is edentulous.) Neck Range of motion (ROM): Full ROM Focused Labs Anesthesia Preop lab: CBC WBC 9.3 K/mm3 (4.4-11.0) 02/12/24 06:10 RBC 3.24 M/mm3 (4.2-5.4) L 02/12/24 06:10 Hgb 8.6 g/dL (12.0-15.0) L 02/12/24 06:10 Hct 27.8 % (37-47) L 02/12/24 06:10 Plt Count 210 K/mm3 (150-450) 02/12/24 06:10 CHEMISTRY Potassium 4.3 mmol/L (3.5-5.1) 02/12/24 06:10 Sodium 137 mmol/L (136-145) 02/12/24 06:10 Magnesium 2.4 mg/dL (1.6-2.6) 02/05/24 15:50 Phosphorus 2.7 mg/dL (2.5-4.9) 02/05/24 15:50 BUN 12 mg/dL (7-18) 02/12/24 06:10 Creatinine 0.78 mg/dL (0.55-1.02) 02/12/24 06:10 Glucose 160 mg/dL (74-106) H 02/12/24 06:10 POC Glucose 155 mg/dL (74-106) H 02/12/24 12:00 COAG PT 12.8 SECONDS (11.7-14.9) 12/14/23 16:06 Pre-Assessment Diagnosis/Proposed Procedure Planned Operative Procedure(s): Esophagogastroduodenoscopy with dilation Anesthesia History Anesthesia History - scrap breaker: Anesthesia History - scrap breaker Hx Hospitalization No 09/23/17 16:43 Any Problems With Anesthesia No 02/12/24 08:00 Cholinesterase deficiency No 02/12/24 08:00 You/Your Family Experience No 02/12/24 08:00 fever (hyperthermia) with Relationship Recent Exposure to Contagious No 02/12/24 08:00 Disease Does patient have nerve No 02/12/24 08:00 stimulator Patient instructed to have No 02/12/24 08:00 device shut off --Does patient have Pacemaker No 02/12/24 11:54 or ICD? When Was Last Pacemaker Check QUESTION #4 FULL TEXT: You/Your Family Experience fever (hyperthermia) with Anesthesia Last Oral Intake Last Oral intake: Last Oral Intake NPO since 00:00 02/12/24 11:54 Meds taken in AM with sips of No 02/12/24 11:54 water? Meds patient instructed to take am of surgery PONV PONV - scrap breaker: PONV - scrap breaker Female HX of Motion Sickness HX of N/V After Surgery Non-Smoker Duration of Surgery greater than 60 minutes Number of Risk Factors PONV Score Height & Weight Height & Weight: Anesthesia: Height & Weight Height 5 ft 4 in 02/12/24 14:13 Weight: 49.1 kg 02/12/24 14:13 Body Mass Index (BMI) 18.6 02/12/24 11:54 Respiratory Assessment Respiratory Assessment - scrap breaker: Respiratory Tract Infection Hx - scrap breaker Hx Respiratory Tract Infection No 02/12/24 08:00 STOP Sleep Apnea STOP Sleep Apnea - scrap breaker: STOP Sleep Apnea - scrap breaker Hx Hypertension Yes 02/08/24 10:19 Hx Sleep Apnea No 02/05/24 21:39 CPAP No 05/08/16 17:24 BIPAP Do you snore loudly (louder No 02/05/24 21:39 than talking or can be heard Do you often feel tired/ No 02/05/24 21:39 fatigued/ sleepy during daytime? Has anyone observed you stop No 02/05/24 21:39 breathing during sleep? STOP Results Negative 02/05/24 21:39 QUESTION #5 FULL TEXT : Do you snore loudly (louder than talking or can be heard through closed doors)? 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 Specify any problems Hx of Preganancy in last 3 N/A 02/05/24 21:39 Months Nurse Filling Out Transfusion CSIGNORIN 02/05/24 21:39 & Questions: Date: 02/05/24 02/05/24 21:39 Time: 21:40 02/05/24 21:39 Patient unable to answer at this time (ie. confused, unrespo /Reproduction History /Reproductive History - scrap breaker: /Reproductive Hx- scrap breaker Hx Now No 02/12/24 08:00 Gestational Age (in weeks): EDC: Hx Hx Para Hx Section SAB No 02/12/24 08:00 Active Medications Active Medications: Current Medications Generic Name Dose Route Start Last Admin Trade Name Freq PRN Reason Stop Dose Admin Acetaminophen 650 mg 02/05/24 21:28 02/12/24 04:33 Acetaminophen 325 Mg Tablet PO 650 mg Q4H PRN PRN Administration Fever, pain 1-10 Aspirin 300 mg 02/06/24 10:00 02/11/24 10:12 Aspirin 300 Mg Suppository RC 300 mg DAILY CARTER Administration Bisacodyl 10 mg 02/11/24 10:00 02/11/24 10:05 Bisacodyl 10 Mg Suppository RC Not Given DAILY CARTER Calamine/Phenol 1 applic 02/05/24 22:00 02/12/24 13:44 Menthol/Lanolin/Calamine/Znox 113 Gm Tube TOPICAL 1 applic 4X/DAY CARTER Administration Protocol Enoxaparin Sodium 40 mg 02/10/24 10:00 02/10/24 11:44 Enoxaparin 40 Mg/0.4 Ml Syringe SC 40 mg Q48H CARTER Administration Glucagon 1 mg 02/05/24 21:28 Glucagon 1 Mg/Ml Syringe IM X1 PRN HYPOGLYCEMIA Protocol Hydralazine HCl 10 mg 02/08/24 16:28 Hydralazine 20 Mg/Ml Vial IV Q4H PRN PRN SBP > 180 Protocol Sodium Chloride 100 mls @ 15 mls/hr 02/05/24 21:06 IV .Q6H40M PRN Saline Flush Sodium Chloride 100 mls @ 15 mls/hr 02/05/24 21:06 IV .Q6H40M PRN Additional IVPB Infusion Dextrose 250 mls @ 0 mls/hr 02/05/24 21:28 Dextrose 10%-Water IV .Q0M PRN HYPOGLYCEMIA Protocol As Directed Pantoprazole Sodium 40 mg/ 110 mls @ 330 mls/hr 02/05/24 22:00 02/12/24 11:16 Sodium Chloride IV Infused Q12 CARTER Infusion Fluconazole 200 mg in 100 mls @ 100 mls/hr 02/09/24 10:00 02/12/24 12:30 IV Infused Q24 CARTER Infusion Insulin Human Lispro 0 unit 02/06/24 06:00 02/12/24 12:05 Insulin Lispro 100 Unit/Ml Insuln.Pen SC Not Given Q6 [facility] Protocol Lactulose 10 gm 02/11/24 22:00 02/11/24 22:56 Lactulose 20 Gm/30 Ml Udc PO 10 gm BID CARTER Administration Melatonin 10 mg 02/08/24 22:00 Melatonin 10 Mg Tablet PO QHS PRN PRN INSOMNIA Morphine Sulfate 2 mg 02/09/24 15:19 02/11/24 23:00 Morphine 2 Mg/Ml Syringe IV 2 mg Q6 PRN Administration Pain Score 6-10 or Pre PT/OT Nystatin 500,000 unit 02/05/24 22:00 02/12/24 13:45 Nystatin 500,000 Unit/5 Ml Udc PO Not Given 4X/DAY CARTER Prochlorperazine Edisylate 5 mg 02/05/24 21:28 02/11/24 10:11 Prochlorperazine 10 Mg/2 Ml Vial IV 5 mg Q4H PRN PRN Administration Breakthrough nausea/vomiting Sodium Chloride 10 - 40 ml 02/05/24 21:06 02/11/24 23:06 0.9% Saline Lock 10 Ml Syringe IV 10 ml UD PRN Administration SALINE FLUSH PFSH Medical History Psoriasis Diabetic peripheral neuropathy Dermatophytosis Macular degeneration Hypercholesteremia Anemia Metastatic bone tumor Metastatic disease Cancer related pain Hypertension Breast cancer Diabetes Home Medications ?Medication ?Instructions ?Recorded ?Last Taken ?Type aspirin 81 mg chewable tablet 81 mg PO DAILY@0800 prophylaxis 01/01/13 1 Day Ago History ~05/07/16 cyanocobalamin (vitamin B-12) 1,000 mcg PO DAILY vitamin 01/01/13 Unknown History 1,000 mcg/mL oral drops (Vitamin B-12) xlaxbrylbgjr-Nl-boxj-minerals 1 ea PO DAILY 09/23/17 Unknown History (Multiple Vitamin, Womens tablet) enalapril maleate 20 mg tablet 20 mg PO BID BP 12/14/23 Unknown History ferrous sulfate 140 mg (45 mg 140 mg PO DAILY SUPPLEMENT 12/14/23 Unknown History iron) tablet,extended release (Slow Release Iron) meloxicam 15 mg tablet 15 mg PO DAILY PRN pain 12/14/23 Unknown History metformin 1,000 mg tablet 1,000 mg PO BID DM 12/14/23 Unknown History oxycodone 5 mg tablet 5 mg PO Q8H PRN PRN severe pain 12/14/23 Unknown History Lactobacillus rhamnosus GG 10 1 cap PO QDAY 01/27/24 Unknown History billion cell capsule (Culturelle) acetaminophen 325 mg chewable 650 mg PO Q4-6H PRN fever or pain 01/27/24 Unknown History tablet aluminum-magnesium hydroxide 225 5 ml PO .prn 01/27/24 Unknown History mg-200 mg/5 mL oral suspension ascorbic acid (vitamin C) 500 mg 500 mg PO DAILY 01/27/24 Unknown History capsule bisacodyl 10 mg rectal suppository 10 mg [place] ONCE PRN constipation 01/27/24 Unknown History mirtazapine 15 mg tablet (Remeron) 15 mg PO QHS 01/27/24 Unknown History morphine 15 mg tablet,extended 15 mg PO Q12H 01/27/24 Unknown History release nystatin 100,000 unit/mL oral 10 ml PO TID 01/27/24 Unknown History suspension ondansetron HCl 4 mg tablet 4 mg PO Q8H 01/27/24 Unknown History sennosides 8.6 mg-docusate sodium 1 tab-cap PO QHS 01/27/24 Unknown History 50 mg tablet (Senna with Docusate Sodium) ceftriaxone 1 gram solution for 1 g IM QHS 02/05/24 Unknown History injection Allergy/AdvReac Type Severity Reaction Status Date / Time acetaminophen (From Vicodin) AdvReac Vomiting Verified 02/05/24 15:28 hydrocodone bitartrate (From AdvReac Vomiting Verified 02/05/24 15:28 Vicodin) Family History Mother Diabetes Father Hypertension Surgical History History of spinal surgery History of coronary artery bypass graft Social History household members: family housing: detention Smoking Status: Former smoker how long ago did patient quit smoking: Quit > 50 years prior. alcohol intake: never substance use type: does not use Review of Systems (Anesthesia) ROS Narrative System reviewed and no additional complaints, except as documented.
--- NOTE | 2024-02-12 16:48 | EX.PCM.PN.GI ---
Subjective Subjective Patient for an upper endoscopy today for failed swallow study. Objective Data Objective Data Vital Signs: Vital Signs Temp Pulse Resp BP Pulse Ox O2 Del Method 98.4 F 88 16 161/66 H 100 Room Air 02/12/24 16:22 02/12/24 16:22 02/12/24 16:22 02/12/24 16:22 02/12/24 16:22 02/12/24 16:30 Oxygen Delivery Method Room Air Weight: 108 lb 3.951 oz Body Mass Index (BMI) 18.6 Intake & Output: Intake and Output for Last 24 Hours 02/10/24 02/11/24 02/12/24 23:59 23:59 23:59 Intake Total 1335.83 / 1335.83 1220 / 1420 1530 / 1530 Output Total 470 / 795 325 / 575 300 / 300 Balance 865.83 / 540.83 895 / 845 1230 / 1230 Medical Nutrition Assessment Dietitian: Malnutrition Criteria Met Start: 02/06/24 16:29 Freq: Status: Active Protocol: Document 02/06/24 16:29 RMA (Rec: 02/06/24 16:29 RMA [id number]) Nutrition Malnutrition Evidence of Malnutrition Exists Yes Malnutrition (severe): Chronic Evidenced By Suboptimal Energy Intake ( Severe),Weight Loss (Severe), Physical Changes (Severe) Clinical Problem Chronic Disease or Condition Related Malnutrition Etiology Severe protein-calorie malnutrition in the context of chronic metastatic disease related to inadequate oral intake, difficulty swallowing and increased energy expenditure Signs/Symptoms as evidenced by currently NPO, BMI 18.0, unintentional weight loss ~15-16% x 2-3 months, PO meeting less than 50% estimated nutrition needs x 2-3 weeks and severe muscle and fat wasting in the clavicle, face, arms and legs Status Active Problem Recommendation Dietitian Recommendations/Changes Advance PO as tolerated and as deemed safe to liberalized regular diet with PO Ensure Plus HP; consistency/texture as per 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 Start enteral nutrition support if pt deemed unsafe for PO nutrition. Adjust ONS as able to optimize intake if PO diet advanced. Will monitor weights closely, likely acceleration of energy/ protein depletion. Lab / Micro Data 02/12/24 06:10 02/12/24 06:10 Labs: Laboratory Results - last 24 hr 02/11/24 17:38: POC Glucose 151 H 02/11/24 23:10: POC Glucose 151 H 02/12/24 05:25: POC Glucose 125 H 02/12/24 06:10: WBC 9.3, RBC 3.24 L, Hgb 8.6 L, Hct 27.8 L, MCV 85.8, MCH 26.5 L, MCHC 30.9 L, RDW Std Deviation 54.8 H, RDW Coeff of Annika 17.7 H, Plt Count 210, MPV 9.6, Immature Gran % (Auto) 1.400 H, Neut % (Auto) 75.1 H, Lymph % (Auto) 9.2 L, [place] % (Auto) 12.5 H, Eos % (Auto) 1.6, Baso % (Auto) 0.2, Absolute Neuts (auto) 7.0, Absolute Lymphs (auto) 0.86, Nucleated RBC % 0, Sodium 137, Potassium 4.3, Chloride 112 H, Carbon Dioxide 23.0, Anion Gap 3 L, BUN 12, Creatinine 0.78, Estim Creat Clear Calc 44.92, Est GFR (MDRD) Af Amer 93, Est GFR (MDRD) Non-Af 76, BUN/Creatinine Ratio 15.5, Glucose 160 H, Calcium 8.9 02/12/24 12:00: POC Glucose 155 H Micro: Microbiology 02/10/24 14:26 Stool Stool Occult Blood (MARGARITA) - Final Physical Exam Narrative Seen and examined No acute or new issues. Patient is moving bowel. Plan for EGD today. Physical exam General: Awake, oriented x 3. Patient is more interactive. HEENT: Atraumatic, PERRLA, EOMI, Normocephalic Oral: Oral thrush is cleared from periphery of the tongue now. Getting better. Neck: Supple, No JVD, Negative Carotid Bruits Chest wall/Lungs: Air entry diminished in bilateral lung bases. No crepitation/rhonchi Cardiovascular: Regular rate, Regular Rhythm, Normal S1, Normal S2, No M/G/R Abdomen: Bowel Sounds Present, Soft, Non Tender, Non-Distended : no dysuria. No renal angle tenderness. No suprapubic tenderness. Extremities: Bilateral feet edema, Capillary Refill Less than 3 Seconds Skin: No rashes, No breakdown Musculoskeletal: No Tenderness to Palpation of Joints or Extremities. No spine tenderness. Neurological: Awake. Low pitched voice. Bilateral lower extremity weakness/paraplegia. Psych/Mental Status: Flat affect Assessment & Plan Assessment/Plan (1) Hypernatremia: PLAN: Plan 70-year-old female was admitted for abnormal labs. 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 She had been having dysphagia thought to be likely secondary to oral candidiasis with possible aspiration. She underwent speech therapy evaluation and was discovered to have episodes of regurgitation versus vomiting and possible aspiration secondary to oropharyngeal dysphagia and esophageal dysphagia. She should undergo an upper endoscopy to evaluate upper GI tract. The patient's family was explained alternatives, risk and benefits include not withstanding bleeding, infection, sepsis, perforation, need for emergent urgent . She will have an ASA of 3. Charges/Coding Visit Charges Inpatient E&M: 08333 Subs Hosp L3
--- NOTE | 2024-02-12 17:52 | PCM.POST.ANE ---
Anesthesia: Postop Eval I Current Vital Signs Temperature: 97 F Pulse Rate: 110 Blood Pressure: 150/76 Respiratory Rate: 18 Pulse Ox: 100 Oxygen Delivery Method: Nasal Cannula Oxygen Flow Rate (L/min): 4 Assessment Airway patent: Yes Spontaneous unlabored respirations: Yes Mental status: Awake and Calm nausea: No Vomiting: No Anesthesia Complication: No Fluid Hydration Crystalloid volume administer (ml): 20 Total IV fluid infused: 20 Progress Note Anesthesia document: Postop Eval 1 completed: Yes
--- NOTE | 2024-02-12 17:53 | POSTOPAN2_ITS ---
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.MDOT Spontaneous unlabored Yes 02/12/24 17:53 PASTE UP COPY CAMERA OPERATOR.MDOT respirations Mental status Awake,Calm 02/12/24 17:53 PASTE UP COPY CAMERA OPERATOR.MDOT nausea No 02/12/24 17:53 PASTE UP COPY CAMERA OPERATOR.MDOT Vomiting No 02/12/24 17:53 PASTE UP COPY CAMERA OPERATOR.MDOT Anesthesia Postop Eval I: Fluid Summary Crystalloid volume administer 20 02/12/24 17:53 PASTE UP COPY CAMERA OPERATOR.MDOT (ml) Colloids volume administered ( ml) Blood Product volume administered (ml) Total IV fluid infused 20 02/12/24 17:53 PASTE UP COPY CAMERA OPERATOR.MDOT Anesthesia Postop Eval I: Summary Notes Anesthesia Complication No 02/12/24 17:53 PASTE UP COPY CAMERA OPERATOR.MDOT Anesthesia Complication Comment: Post-operative progress note Anesthesia: Postop Eval II Evaluation Mental status: Awake and Calm Pain Level: 0 nausea: No Vomiting: No Complications Anesthesia Complication: No
--- NOTE | 2024-02-12 17:53 | PCM.POSTANE2 ---
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.MDOT Spontaneous unlabored Yes 02/12/24 17:53 PHILOSOPHY FACULTY MEMBER.MDOT respirations Mental status Awake,Calm 02/12/24 17:53 PHILOSOPHY FACULTY MEMBER.MDOT nausea No 02/12/24 17:53 PHILOSOPHY FACULTY MEMBER.MDOT Vomiting No 02/12/24 17:53 PHILOSOPHY FACULTY MEMBER.MDOT Anesthesia Postop Eval I: Fluid Summary Crystalloid volume administer 20 02/12/24 17:53 PHILOSOPHY FACULTY MEMBER.MDOT (ml) Colloids volume administered ( ml) Blood Product volume administered (ml) Total IV fluid infused 20 02/12/24 17:53 PHILOSOPHY FACULTY MEMBER.MDOT Anesthesia Postop Eval I: Summary Notes Anesthesia Complication No 02/12/24 17:53 PHILOSOPHY FACULTY MEMBER.MDOT Anesthesia Complication Comment: Post-operative progress note Anesthesia: Postop Eval II Evaluation Mental status: Awake and Calm Pain Level: 0 nausea: No Vomiting: No Complications Anesthesia Complication: No
--- NOTE | 2024-02-12 17:58 | OP.CCLET_ITS ---
02/12/2024 Emiliano Pelletier [address] [place] [address] Re : Upper GI endoscopy procedure for Magui Tony Dear Dr. Pelletier This procedure was performed on Monday, February 12, 2024. My impressions and recommendations are as follows: Impressions : - Esophageal mucosal changes consistent with eosinophilic esophagitis. Treated with argon plasma coagulation (APC). - Chronic gastritis. - No gross lesions in the duodenal bulb. - Biopsies were taken with a cold forceps for evaluation of eosinophilic esophagitis. Recommendations : - Discharge patient to home. - Advance diet as tolerated. - Continue present medications. - Await pathology results. - Use Protonix (pantoprazole) 40 mg PO BID. My findings are described in the full procedure note, which is enclosed. If I can be of further assistance, please feel free to contact me at . Sincerely, Mayank Adams, 02/12/2024 5:57:52 PM This report has been signed electronically.
--- NOTE | 2024-02-12 17:58 | OP.EGD_ITS ---
Patient Name: Magui Jimenez Procedure Date: 02/12/2024 5:22 PM Date of : 1945 Age: 78 Procedure: Upper GI endoscopy Indications: Dysphagia Providers: Mayank Adams DO Medicines: Monitored Anesthesia Care Patient Profile: This is a 78 year old female. Refer to note in patient chart for documentation of history and physical. Patient has symptoms of dysphagia with solids. Complications: No immediate complications. Procedure: Pre-Anesthesia Assessment: - Prior to the procedure, a History and Physical was performed, and patient medications and allergies were reviewed. The patient is competent. The risks and benefits of the procedure and the sedation options and risks were discussed with the patient. All questions were answered and informed consent was obtained. Patient identification and proposed procedure were verified by the physician in the pre-procedure area. Mental Status Examination: alert and oriented. Airway Examination: normal oropharyngeal airway and neck mobility. Respiratory Examination: clear to auscultation. CV Examination: normal. Prophylactic Antibiotics: The patient does not require prophylactic antibiotics. Prior Anticoagulants: The patient has taken no anticoagulant or antiplatelet agents. ASA Grade Assessment: III - A patient with severe systemic disease. After reviewing the risks and benefits, the patient was deemed in satisfactory condition to undergo the procedure. The anesthesia plan was to use monitored anesthesia care (MAC). Immediately prior to administration of medications, the patient was re-assessed for adequacy to receive sedatives. The heart rate, respiratory rate, oxygen saturations, blood pressure, adequacy of pulmonary ventilation, and response to care were monitored throughout the procedure. The physical status of the patient was re-assessed after the procedure. After obtaining informed consent, the endoscope was passed under direct vision. Throughout the procedure, the patient's blood pressure, pulse, and oxygen saturations were monitored continuously. The was introduced through the mouth, and advanced to the second part of duodenum. The upper GI endoscopy was accomplished without difficulty. The patient tolerated the procedure well. Scope In: 5:38:47 PM Scope Out: 5:50:35 PM Total Procedure Duration Time 0 hours 11 minutes 48 seconds Findings: Mucosal changes including ringed esophagus, longitudinal furrows, small-caliber esophagus and crepe paper esophagus were found in the middle third of the esophagus and in the lower third of the esophagus. Esophageal findings were graded using the Eosinophilic Esophagitis Endoscopic Reference Score (EoE-EREFS) as: Edema Grade 1 Present (decreased clarity or absence of vascular markings), Rings Grade 2 Moderate (distinct rings that do not occlude passage of diagnostic 8-10 mm endoscope), Exudates Grade 0 None (no white lesions seen), Furrows Grade 1 Mild (vertical lines without visible depth) and Stricture none (no stricture found). Biopsies were obtained from the proximal and distal esophagus with cold forceps for histology of suspected eosinophilic esophagitis. Coagulation for tissue destruction using argon plasma at 0.3 liters/minute and 20 fallon was successful. Estimated blood loss was minimal. Diffuse mild inflammation characterized by congestion (edema) and erythema was found in the entire examined stomach. No gross lesions were noted in the duodenal bulb. Impression: - Esophageal mucosal changes consistent with eosinophilic esophagitis. Treated with argon plasma coagulation (APC). - Chronic gastritis. - No gross lesions in the duodenal bulb. - Biopsies were taken with a cold forceps for evaluation of eosinophilic esophagitis. Recommendation: - Discharge patient to home. - Advance diet as tolerated. - Continue present medications. - Await pathology results. - Use Protonix (pantoprazole) 40 mg PO BID. Procedure Code(s): --- Professional --- 07147, Esophagogastroduodenoscopy, flexible, transoral; with ablation of tumor(s), polyp(s), or other lesion(s) (includes pre- and post-dilation and guide wire passage, when performed) 44215, 59,51, Esophagogastroduodenoscopy, flexible, transoral; with biopsy, single or multiple CPT copyright 2021 [employer]. All rights reserved. The codes documented in this report are preliminary and upon registered nursing professor review may be revised to meet current compliance requirements. Mayank Adams DO 02/12/2024 5:57:52 PM This report has been signed electronically. Number of Addenda: 0 Note Initiated On: 02/12/2024 5:22 PM
--- NOTE | 2024-02-12 19:31 | NURSING ---
pt back from endo and coughed up about 1/4 cup bright red blood with clot to emesis bag. son in at bedside. gown changed and mouth care given. lovenox and asa held and sal in room to eval amt of blood had coughed up. hob up and friend text
[2024-02-12 19:46] LABS: Bedside Glucose 141 mg/dL (74-106)
[2024-02-12 22:29] LABS: Bedside Glucose 152 mg/dL (74-106)
[2024-02-12] MEDS: hydrALAZINE 20 MG/ML Vial 10 MG IV (23:39)
[2024-02-13 05:56] VITALS: BP 135/83; PULSE 112; RESP 18; TEMP 36.9; O2SAT 100
[2024-02-13 06:00] VITALS: BMI 18.3
[2024-02-13 07:12] LABS: Bedside Glucose 161 mg/dL (74-106)
[2024-02-13] MEDS: Menthol/Lanolin/Calamine/Znox 113 GM Tube 1 APPLIC TOPICAL (09:58)
[2024-02-13] MEDS: NYSTATIN 500,000 UNIT/5 ML UDC 500000 UNIT PO ×2 (09:59→15:07)
[2024-02-13] MEDS: Pantoprazole Sodium 40 MG in 0.9% Normal Saline (100mL MB+) 100 ML 330 MG IV (10:17)
[2024-02-13] MEDS: Bisacodyl 10 MG Suppository RC (10:19)
[2024-02-13] MEDS: Morphine 2 MG/ML Syringe IV (11:00)
--- NOTE | 2024-02-13 11:20 | PCM.TXEXTCAR ---
Diet Diet Order/Speech Therapy: 02/12/24 18:09 Diet: Regular - General Diet Comments: MOIST purees, slow rate, direct supervision Routine Orders/Code Status Suppository Type: Dulcolax 10mg Suppository Frequency: Daily PRN DC O2, CPAP, BIPAP needs Home O2 Discharge instructions: No Wound(s) upper mid back: Wound Type: small scattered wounds Dressing Change: foam dressing lower back: Wound Type: Surgical Incision Dressing Change: Wet to Dry Dressing coccyx: Wound Type: Pressure Injury Dressing Change: foam dressing Therapies Extremity Affected:: Bilateral Lower Physical Therapy: Eval and Treat Occupational Therapy: Eval and Treat Speech Therapy: Eval and Treat Problem/Diagnosis (1) Hypernatremia: Status: Acute Code(s): E87.0 - Hyperosmolality and hypernatremia Plan 70-year-old female was admitted for abnormal labs with increased BUN/creatinine, 92/2.81 drawn 2 days ago from [facility] where she was admitted for radiation therapy for metastatic breast cancer to spine. On the day of admission, BUN/creatinine improved 58/1.06. #Hypernatremia due to dehydration/poor oral intake 02/07 sodium is 146. D5W resumed as it was 145 yesterday. Patient does not have much oral intake. 02/09: Sodium is improving 142. 02/10: Serum sodium normal 139. K4.1. D5W plus KCl for nutrition as patient is still NPO. 02/11: Sodium 137. Electrolytes in normal range except chloride 112. #Dysphagia most likely to see oral thrush/candidiasis: currently NPO. Speech therapy consulted. 02/07 on nystatin. On local exam, diffuse oral and pharyngeal thick white patch. Fluconazole IV started. 02/08: Speech therapist saw the patient in the morning and impression was minimal oral intake with MATTRESS SPECIALIST and intermittent throwing up and fluctuating alert. As per the daughter her oral intake has increased since yesterday. Patient states her swallowing is better. Discussed about the feeding tube with her daughter and she understood and she will think on it. 02/09: Speech therapist planning to do modified barium swallow tomorrow. 02/10 modified barium swallow not done yet. 02/11: Patient is scheduled for EGD today. After that plan for discharge to [facility] Severe constipation: Patient not been eating since admission. Earlier was given but no response. Fleet enema. Dulcolax suppository. Lactulose 20 g p.o. 1 dose. 02/10: Patient had bowel movement. Lactulose 10 g twice daily. 02/04; constipation has resolved #Metastatic breast cancer has mets to the spine. had radiation last week. follow up with oncology on outpatient basis. 02/07: There is lower extremity weakness, paraplegia probably due to mets to the spine, compounded with poor nutrition. Patient's son denies stroke. #CAD s/p CABG: on aspirin # Type 2 diabetes mellitus: Also has chronic neuropathy. Insulin sliding scale. Accu-Cheks ACHS. Currently n.p.o. due to concerns about dysphagia #Anemia: Hemoglobin is down to 7.2 today; was 7.9 yesterday. Has a baseline of hemoglobin between 8 and 9. check iron profile and stool for occult blood 02/07 hemoglobin dropped to 6.7. Iron profile shows low iron, TIBC but elevated ferritin. Iron saturation 15%. Overall suggestive of acute on chronic inflammatory anemia. 1 unit PRBC ordered. 02/08 hemoglobin decreased to 8.0. 02/10: H&H 7.9/26%. Platelet count 214K. 02/11: H&H 8.6/27.8%. Platelet count normal. #Chronic pain syndrome: On oxycodone and long-acting morphine. These were held as she is NPO. On IV morphine as needed #Anxiety and depression: on mirtazapine #Stage II-III decubitus ulcers: Present on admission. Prior treatment. Frequent turning. Wound care consulted. #Severe protein calorie malnutrition: Likely due to metastatic cancer. Nutrition consult #DVT prophylaxis: Lovenox Discharge plan discussed with the patient's son and daughter present in the room. Allergies/Procedures Done in Hospital Allergies acetaminophen (From Vicodin) Adverse Reaction (Verified 02/05/24 15:28) Vomiting hydrocodone bitartrate (From Vicodin) Adverse Reaction (Verified 02/05/24 15:28) Vomiting Type of Care/Length of Stay Estimated LOS: More Than 30 Days Type of Care Needed: Skilled Rehab Potential: Good Prognosis: Good Additional Orders/Day of Discharge Day of Discharge: 02/13/24 Dietary and Speech Recommendations Dietitian Recommendations/Changes: Advance PO as tolerated and as deemed safe to liberalized regular diet with PO Ensure Plus HP; consistency/texture as per MATTRESS SPECIALIST. Start enteral nutrition support if pt deemed unsafe for PO nutrition. Adjust ONS as able to optimize intake if PO diet advanced. Will monitor weights closely, likely acceleration of energy/protein depletion. Discharge Plan Admission Admit Date/Time: 02/06/24 14:04 Attending Provider: Regino Chappell Primary Care Provider: Emiliano Pelletier Consulting Providers: Brittney Simental; Sandy Tom Instructions Additional Instructions / Restrictions: Follow-up in wound center, [place] Discharge Orders/Prescriptions Prescriptions: New insulin lispro [Humalog KwikPen Insulin] 100 unit/mL Insulin Pen See Protocol subcut Q6 Qty: 0 0RF Protocol: 3. Sliding Scale Insulin Med Dosing Condition: 150-189 mg/dl = 1 unit Condition: 190-229 mg/dl = 2 units Condition: 230-269 mg/dl = 3 units Condition: 270-309 mg/dl = 4 units Condition: 310-349 mg/dl = 5 units Condition: 350-399 mg/dl = 6 units Condition: 400-449 mg/dl = 7 units Condition: Greater than 449 call physician Protocol Text: - Use for Total Daily Dose of Insulin 37-55 units - Obsese, infected, or steroid patients MEDIUM DOSING ALGORITHIM lactulose 20 gram/30 mL Solution 10 g PO BID Qty: 0 0RF melatonin 10 mg Tablet, Sublingual 10 mg PO QHS PRN PRN (Reason: Insomnia) Qty: 0 0RF nystatin 100,000 unit/mL Suspension 500,000 unit PO 4X/DAY 3 Days Qty: 60 0RF pantoprazole [Protonix] 40 mg tablet,delayed release (DR/EC) 40 mg PO BID 30 Days Qty: 60 2RF fluconazole 200 mg tablet 200 mg PO DAILY 2 Days Qty: 2 0RF Continued ondansetron HCl 4 mg tablet 4 mg PO Q8H sennosides-docusate sodium [Senna with Docusate Sodium] 8.6-50 mg tablet 1 tab-cap PO QHS bisacodyl 10 mg suppository 10 mg IA ONCE PRN (Reason: constipation) aluminum-magnesium hydroxide 225-200 mg/5 mL suspension 5 ml PO .prn Culturelle 10 billion cell capsule 1 cap PO QDAY ascorbic acid (vitamin C) 500 mg capsule 500 mg PO DAILY acetaminophen 325 mg tablet,chewable 650 mg PO Q4-6H PRN (Reason: fever or pain) aspirin 81 MG tablet,chewable 81 mg PO DAILY@0800 Multiple Vitamin, Womens 1 EACH tablet 1 ea PO DAILY Slow Release Iron 140 mg (45 mg iron) tablet extended release 140 mg PO DAILY metformin 1,000 mg tablet 1,000 mg PO BID oxycodone 5 mg tablet 5 mg PO Q8H PRN PRN (Reason: severe pain) Changed enalapril maleate 20 mg tablet 10 mg PO BIDCM 30 Days Qty: 0 0RF mirtazapine [Remeron] 15 mg tablet 7.5 mg PO QHS 30 Days Qty: 0 0RF Held Vitamin B-12 1,000 MCG/ML drops 1,000 mcg PO DAILY Hold Instructions: B12 level >2000 on 12/28/23 Discontinued nystatin 100,000 unit/mL suspension 10 ml PO TID Rx Instructions: swish and swallow morphine 15 mg tablet extended release 15 mg PO Q12H meloxicam 15 mg tablet 15 mg PO DAILY PRN (Reason: pain) ceftriaxone 1 gram recon soln 1 g IM QHS Rx Instructions: x7 days Referrals / Follow Up: Emiliano Pelletier DO [Primary Care Provider] - Mayank Adams DO [Med Staff - Active Staff] - Within 1 Month Hang Joaquin DO [Med Staff - Active Staff] - Within 2 Weeks Disposition Disposition (needs filled in before D/C Order can be placed): Group Home Facility
--- NOTE | 2024-02-13 12:15 | PCM.DC.SUM ---
Providers Date of Admission: 02/06/24 Date of Discharge: 02/13/24 Primary Care Physician: Dr. Emiliano Pelletier, DO Consultations 02/05/24 23:57 Consult: Onc/Wound/retort unloader Routine Comment: Reason for Consult:: wounds on back and coccyx 02/11/24 16:05 Consult: Gastroenterology Routine Consulting Provider: [facility] Reason for Consult: Dysphagia, EGD EMERGENT Consult: No MD Notified: Yes Date Notified: 02/11/24 Time Notified: 16:05 Method of Notification: Verbal Reason For Visit: HYPERNATREMIA Diagnosis Discharge Diagnosis (1) Hypernatremia: Status: Acute Code(s): E87.0 - Hyperosmolality and hypernatremia Plan 70-year-old female was admitted for abnormal labs with increased BUN/creatinine, 92/2.81 drawn 2 days ago from [facility] where she was admitted for radiation therapy for metastatic breast cancer to spine. On the day of admission, BUN/creatinine improved 58/1.06. #Hypernatremia due to dehydration/poor oral intake 02/07 sodium is 146. D5W resumed as it was 145 yesterday. Patient does not have much oral intake. 02/09: Sodium is improving 142. 02/10: Serum sodium normal 139. K4.1. D5W plus KCl for nutrition as patient is still NPO. 02/11: Sodium 137. Electrolytes in normal range except chloride 112. 128 02/12: Electrolytes are controlled. No need for further lab. Patient is getting discharged today to SNF. #Dysphagia most likely to see oral thrush/candidiasis: currently NPO. Speech therapy consulted. 02/07 on nystatin. On local exam, diffuse oral and pharyngeal thick white patch. Fluconazole IV started. 02/08: Speech therapist saw the patient in the morning and impression was minimal oral intake with AUTOCAD DESIGNER and intermittent throwing up and fluctuating alert. As per the daughter her oral intake has increased since yesterday. Patient states her swallowing is better. Discussed about the feeding tube with her daughter and she understood and she will think on it. 02/09: Speech therapist planning to do modified barium swallow tomorrow. 02/10 modified barium swallow not done yet. 02/11: Patient is scheduled for EGD today. After that plan for discharge to SNF, [facility] 02/12: Patient had EGD on 02/11: Patient discharged on 2 more days of fluconazole, nystatin oral swish and swallow. Prescription given for pantoprazole Impression: - Esophageal mucosal changes consistent with eosinophilic esophagitis. Treated with argon plasma coagulation (APC). - Chronic gastritis. - No gross lesions in the duodenal bulb. - Biopsies were taken with a cold forceps for evaluation of eosinophilic esophagitis. Recommendation: . - Await pathology results. - Use Protonix (pantoprazole) 40 mg PO BID. Patient is discharged to SNF. Advised to follow-up in GI clinic Severe constipation: Patient not been eating since admission. Earlier was given but no response. Fleet enema. Dulcolax suppository. Lactulose 20 g p.o. 1 dose. 02/10: Patient had bowel movement. Lactulose 10 g twice daily. 02/04; constipation has resolved #Metastatic breast cancer has mets to the spine. had radiation last week. follow up with oncology on outpatient basis. 02/07: There is lower extremity weakness, paraplegia probably due to mets to the spine, compounded with poor nutrition. Patient's son denies stroke. 02/12: Follow-up with radiation oncology Dr. Hang Joaquin. #CAD s/p CABG: on aspirin # Type 2 diabetes mellitus: Also has chronic neuropathy. Insulin sliding scale. Accu-Cheks ACHS. Currently n.p.o. due to concerns about dysphagia #Anemia: Hemoglobin is down to 7.2 today; was 7.9 yesterday. Has a baseline of hemoglobin between 8 and 9. check iron profile and stool for occult blood 02/07 hemoglobin dropped to 6.7. Iron profile shows low iron, TIBC but elevated ferritin. Iron saturation 15%. Overall suggestive of acute on chronic inflammatory anemia. 1 unit PRBC ordered. 02/08 hemoglobin decreased to 8.0. 02/10: H&H 7.9/26%. Platelet count 214K. 02/11: H&H 8.6/27.8%. Platelet count normal. #Chronic pain syndrome: On oxycodone and long-acting morphine. These were held as she is NPO. On IV morphine as needed #Anxiety and depression: on mirtazapine #Stage II decubitus ulcers: Present on admission. Prior treatment. Frequent turning. Wound care consulted. 02/12: Follow-up with wound center #Severe protein calorie malnutrition: Likely due to metastatic cancer. Nutrition consult #DVT prophylaxis: Lovenox Discharge medication reconciliation done. Discharge follow-up instructions completed. Discharge process discussed with the patient and all questions were answered to patient's satisfaction. Follow with PCP in 1 to 2 weeks Total time spent, exact 35 minutes on discharge meds reconciliation, examination, coordination of care with nurses and ancillary staff, review of imaging and blood test and discussion with the patient on follow-up instructions. Medications at Discharge Home Medications aspirin 81 mg chewable tablet 81 mg PO DAILY@0800 prophylaxis 01/01/13 cyanocobalamin (vitamin B-12) 1,000 mcg/mL oral drops (Vitamin B-12) 1,000 mcg PO DAILY vitamin 01/01/13 [id number] (Multiple Vitamin, Womens tablet) 1 ea PO DAILY 09/23/17 ferrous sulfate 140 mg (45 mg iron) tablet,extended release (Slow Release Iron) 140 mg PO DAILY SUPPLEMENT 12/14/23 metformin 1,000 mg tablet 1,000 mg PO BID DM 12/14/23 oxycodone 5 mg tablet 5 mg PO Q8H PRN PRN severe pain 12/14/23 Lactobacillus rhamnosus GG 10 billion cell capsule (Culturelle) 1 cap PO QDAY 01/27/24 acetaminophen 325 mg chewable tablet 650 mg PO Q4-6H PRN fever or pain 01/27/24 aluminum-magnesium hydroxide 225 mg-200 mg/5 mL oral suspension 5 ml PO .prn 01/27/24 ascorbic acid (vitamin C) 500 mg capsule 500 mg PO DAILY 01/27/24 bisacodyl 10 mg rectal suppository 10 mg NH ONCE PRN constipation 01/27/24 ondansetron HCl 4 mg tablet 4 mg PO Q8H 01/27/24 sennosides 8.6 mg-docusate sodium 50 mg tablet (Senna with Docusate Sodium) 1 tab-cap PO QHS 01/27/24 enalapril maleate 20 mg tablet 10 mg (1/2 x 20 mg) PO BIDCM BP 30 days #0 tabs 02/13/24 fluconazole 200 mg tablet 200 mg PO DAILY 2 days #2 tabs 02/13/24 insulin lispro 100 unit/mL subcutaneous pen (Humalog KwikPen (U-100) Insulin) See Protocol subcut Q6 #0 mL 02/13/24 lactulose 20 gram/30 mL oral solution 10 g (15 mL) PO BID #0 mL 02/13/24 melatonin 10 mg sublingual tablet 10 mg PO QHS PRN PRN Insomnia #0 tabs 02/13/24 mirtazapine 15 mg tablet (Remeron) 7.5 mg (1/2 x 15 mg) PO QHS 30 days #0 tabs 02/13/24 nystatin 100,000 unit/mL oral suspension 500,000 unit (5 mL) PO 4X/DAY 3 days #60 mL 02/13/24 pantoprazole 40 mg tablet,delayed release (Protonix) 40 mg PO BID 30 days #60 tabs 02/13/24 Physical Exam Narrative Seen and examined No acute or new issues. Patient is moving bowel. Had mild trace amount of blood after EGD. Discussed with the patient's son and daughter present in the room. Bilateral lower extremity weakness and swelling in feet. Physical exam General: Awake, oriented x 3. Patient is more interactive. HEENT: Atraumatic, PERRLA, EOMI, Normocephalic Oral: Oral thrush is cleared from periphery of the tongue and central part of tongue also looks better. Neck: Supple, No JVD, Negative Carotid Bruits Chest wall/Lungs: Air entry diminished in bilateral lung bases. No crepitation/rhonchi Cardiovascular: Regular rate, Regular Rhythm, Normal S1, Normal S2, No M/G/R Abdomen: Bowel Sounds Present, Soft, Non Tender, Non-Distended : no dysuria. No renal angle tenderness. No suprapubic tenderness. Extremities: Bilateral feet edema, Capillary Refill Less than 3 Seconds Skin: No rashes, No breakdown Musculoskeletal: No Tenderness to Palpation of Joints or Extremities. No spine tenderness. Neurological: Awake. Low pitched voice. Bilateral lower extremity weakness/paraplegia. Psych/Mental Status: Flat affect Medical Records Data Medical Nutrition Assessment Dietitian: Malnutrition Criteria Met Start: 02/06/24 16:29 Freq: Status: Active Protocol: Document 02/06/24 16:29 RMA (Rec: 02/06/24 16:29 RMA [id number]) Nutrition Malnutrition Evidence of Malnutrition Exists Yes Malnutrition (severe): Chronic Evidenced By Suboptimal Energy Intake ( Severe),Weight Loss (Severe), Physical Changes (Severe) Clinical Problem Chronic Disease or Condition Related Malnutrition Etiology Severe protein-calorie malnutrition in the context of chronic metastatic disease related to inadequate oral intake, difficulty swallowing and increased energy expenditure Signs/Symptoms as evidenced by currently NPO, BMI 18.0, unintentional weight loss ~15-16% x 2-3 months, PO meeting less than 50% estimated nutrition needs x 2-3 weeks and severe muscle and fat wasting in the clavicle, face, arms and legs Status Active Problem Recommendation Dietitian Recommendations/Changes Advance PO as tolerated and as deemed safe to liberalized regular diet with PO Ensure Plus HP; consistency/texture as per AUTOCAD DESIGNER. Start enteral nutrition support if pt deemed unsafe for PO nutrition. Adjust ONS as able to optimize intake if PO diet advanced. Will monitor weights closely, likely acceleration of energy/ protein depletion. Weight / BMI Weight Weight: 107 lb 9.369 oz Body Mass Index (BMI) 18.3 ABG / Lab / Microbiology Data 02/12/24 06:10 02/12/24 06:10 Laboratory: Laboratory Results - last 24 hr 02/12/24 19:22: POC Glucose 141 H 02/12/24 21:29: POC Glucose 152 H 02/13/24 06:00: POC Glucose 161 H 02/13/24 12:36: POC Glucose 181 H Microbiology: Microbiology 02/10/24 14:26 Stool Stool Occult Blood (MARGARITA) - Final D/C Instructions DC O2, CPAP, BIPAP Needs Home O2 Discharge instructions: No Meaningful Use Info Meaningful Use Meaningful Use Diagnoses (Choose all that apply): None applicable Ischemic Stroke Statin Dosing Therapy Reference: STATIN DOSE THERAPY REFERENCE: * Patients > 75 years receive moderate or high dose statin therapy. * Patients 75 years or YOUNGER should receive HIGH intensity statin dose unless contraindicated. You will be required to document reason for non-treatment if statin daily dose does not meet guidelines. HIGH DOSE STATIN THERAPY DAILY Atorvastatin > than or = to 40 mg Rosuvastatin > than or = to 20 mg Amlodipine + Atorvastatin > than or = to 2.5/40 mg Ezetimibe + Simvastatin 10/80 mg Simvastatin 80mg Discharge Plan Admission Admit Date/Time: 02/06/24 14:04 Attending Provider: Regino Chappell Primary Care Provider: Emiliano Pelletier Consulting Providers: Brittney Simental; Sandy Tom Instructions Additional Instructions / Restrictions: Follow-up in wound center, [place] Discharge Orders/Prescriptions Prescriptions: New insulin lispro [Humalog KwikPen Insulin] 100 unit/mL Insulin Pen See Protocol subcut Q6 Qty: 0 0RF Protocol: 3. Sliding Scale Insulin Med Dosing Condition: 150-189 mg/dl = 1 unit Condition: 190-229 mg/dl = 2 units Condition: 230-269 mg/dl = 3 units Condition: 270-309 mg/dl = 4 units Condition: 310-349 mg/dl = 5 units Condition: 350-399 mg/dl = 6 units Condition: 400-449 mg/dl = 7 units Condition: Greater than 449 call physician Protocol Text: - Use for Total Daily Dose of Insulin 37-55 units - Obsese, infected, or steroid patients MEDIUM DOSING ALGORITHIM lactulose 20 gram/30 mL Solution 10 g PO BID Qty: 0 0RF melatonin 10 mg Tablet, Sublingual 10 mg PO QHS PRN PRN (Reason: Insomnia) Qty: 0 0RF nystatin 100,000 unit/mL Suspension 500,000 unit PO 4X/DAY 3 Days Qty: 60 0RF pantoprazole [Protonix] 40 mg tablet,delayed release (DR/EC) 40 mg PO BID 30 Days Qty: 60 2RF fluconazole 200 mg tablet 200 mg PO DAILY 2 Days Qty: 2 0RF Continued ondansetron HCl 4 mg tablet 4 mg PO Q8H sennosides-docusate sodium [Senna with Docusate Sodium] 8.6-50 mg tablet 1 tab-cap PO QHS bisacodyl 10 mg suppository 10 mg [place] ONCE PRN (Reason: constipation) aluminum-magnesium hydroxide 225-200 mg/5 mL suspension 5 ml PO .prn Culturelle 10 billion cell capsule 1 cap PO QDAY ascorbic acid (vitamin C) 500 mg capsule 500 mg PO DAILY acetaminophen 325 mg tablet,chewable 650 mg PO Q4-6H PRN (Reason: fever or pain) aspirin 81 MG tablet,chewable 81 mg PO DAILY@0800 Multiple Vitamin, Womens 1 EACH tablet 1 ea PO DAILY Slow Release Iron 140 mg (45 mg iron) tablet extended release 140 mg PO DAILY metformin 1,000 mg tablet 1,000 mg PO BID oxycodone 5 mg tablet 5 mg PO Q8H PRN PRN (Reason: severe pain) Changed enalapril maleate 20 mg tablet 10 mg PO BIDCM 30 Days Qty: 0 0RF mirtazapine [Remeron] 15 mg tablet 7.5 mg PO QHS 30 Days Qty: 0 0RF Held Vitamin B-12 1,000 MCG/ML drops 1,000 mcg PO DAILY Hold Instructions: B12 level >2000 on 12/28/23 Discontinued nystatin 100,000 unit/mL suspension 10 ml PO TID Rx Instructions: swish and swallow morphine 15 mg tablet extended release 15 mg PO Q12H meloxicam 15 mg tablet 15 mg PO DAILY PRN (Reason: pain) ceftriaxone 1 gram recon soln 1 g IM QHS Rx Instructions: x7 days Referrals / Follow Up: Emiliano Pelletier DO [Primary Care Provider] - Mayank Adasm DO [Med Staff - Active Staff] - Within 1 Month Hang Joaquin DO [Med Staff - Active Staff] - Within 2 Weeks Disposition Disposition (needs filled in before D/C Order can be placed): Care Home Facility Charges/Coding Visit Charges Inpatient E&M: 87601 Disch Hosp >30min
[2024-02-13] MEDS: Fluconazole IVPB 200 MG/100 ML BAG 100 MG IV (12:24)
[2024-02-13] MEDS: Acetaminophen 325 MG Tablet 650 MG PO (12:38)
--- NOTE | 2024-02-13 12:59 | CASEMGMT ---
Social Work- Physician feels that pt is medically ready for discharge. Pt and family updated. Green sheet with transport on chart. Plan: [facility]; return to skilled level of care [facility]
[2024-02-13 13:13] LABS: Bedside Glucose 181 mg/dL (74-106)
== END 2024-02-13 15:35 | disposition skilled nursing facility (03) | DRG 640 ==
LOC: ED 18:57 → MS3 19:08
PROVIDERS: Internal Medicine Gastroenterology; Physician Assistant; Student in an Organized Health Care Education/Training Program; Admitting Provider Family Medicine; Emergency Provider Emergency Medicine; PCP Student in an Organized Health Care Education/Training Program; Visit Provider Internal Medicine
PROC: 0DJ08ZZ Inspection of Upper Intestinal Tract, Via Natural or Artificial Opening Endoscopic (ICD-10-PCS; CPT 43235; principal; 2024-02-12 16:10)
DX: E87.0 Hyperosmolality and hypernatremia (principal); E43 Unspecified severe protein-calorie malnutrition; C79.51 Secondary malignant neoplasm of bone; B37.0 Candidal stomatitis; G82.20 Paraplegia, unspecified; Z68.1 Body mass index [BMI] 19.9 or less, adult; L89.152 Pressure ulcer of sacral region, stage 2; R13.12 Dysphagia, oropharyngeal phase; C50.919 Malignant neoplasm of unspecified site of unspecified female breast; E11.22 Type 2 diabetes mellitus with diabetic chronic kidney disease; N18.30 Chronic kidney disease, stage 3 unspecified; F32.A Depression, unspecified; I12.9 Hypertensive chronic kidney disease with stage 1 through stage 4 chronic kidney disease, or unspecified chronic kidney disease; D50.9 Iron deficiency anemia, unspecified; E78.00 Pure hypercholesterolemia, unspecified; I25.10 Atherosclerotic heart disease of native coronary artery without angina pectoris; E11.42 Type 2 diabetes mellitus with diabetic polyneuropathy; K29.50 Unspecified chronic gastritis without bleeding; E86.0 Dehydration; E87.1 Hypo-osmolality and hyponatremia; K59.00 Constipation, unspecified; K20.0 Eosinophilic esophagitis; G89.4 Chronic pain syndrome; Z79.82 Long term (current) use of aspirin; Z79.84 Long term (current) use of oral hypoglycemic drugs; Z92.3 Personal history of irradiation; Z87.891 Personal history of nicotine dependence; Z95.1 Presence of aortocoronary bypass graft
CPT/HCPCS: 36415; 74230; 80048; 80053; 80076; 81001; 82274; 82728; 82962; 83540; 83550; 83735; 83935; 84100; 84300; 85014; 85018; 85025; 86850; 86870; 86900; 86901; 86920; 86921; 88305; 92526; 92611; 94668; 97162; 97166; 97530; 97802; 99285; P9016; A4216; J2405

== ENCOUNTER 2024-02-24 15:21 | Inpatient (IN) | payer MEDICARE, SELFPAY ==
[2024-02-24] VITALS (8 sets, daily range): BP systolic 122–151; BP diastolic 55–74; PULSE 100–115; RESP 14–18; TEMP 36.9–37.6; O2SAT 97–100; BMI 20.3; BMI 18.3
[2024-02-24 16:24] LABS: Hematocrit 29.4 % (37-47); Hemoglobin 9.1 g/dL (12.0-15.0); Mean Corpuscular Hgb 25.5 pg (27.0-32.0); Mean Corpuscular Volume 82.4 fL (81-99); Mean Platelet Vol. 9.1 fl (6.2-12.0); Platelet Count 452 K/mm3 (150-450); RBC Distribution Width CV 18.4 % (11.6-14.6); RBC Distribution Width SD 55.1 fl (35.1-43.9); Red Blood Count 3.57 M/mm3 (4.2-5.4); White Blood Count 11.4 K/mm3 (4.4-11.0)
[2024-02-24] MEDS: 0.9% Normal Saline (500mL Bag) 500 ML 999 ML IV (16:34)
--- NOTE | 2024-02-24 17:04 | EDS_ITS ---
HPI History of Present Illness Chief Complaint: Abn Labs Informant: patient, family and SNF Narrative Narrative: Patient is a 78-year-old female with history of breast cancer with metastatic disease to the bones, hypertension with recent radiation therapy for her spinal metastasis and admission for hyponatremia and dehydration, chronic anemia (baseline hemoglobin between 8 and 9) presenting from nursing facility for continued weakness as well as worsening anemia. She had outpatient labs today which showed hemoglobin of 6.9. Son is at the bedside states that patient has been significantly weak since her discharge and she cannot even move her legs now. She complains of intermittent pain of her right lower extremity. She has a hard time describing it but states it is more from her ankle to her foot. Denies any trauma or injury. Denies any incontinence. No fevers reported. States that if she needs it should be okay with a blood transfusion. [facility] Medical History Pressure ulcer Hypernatremia Physical debility Psoriasis Diabetic peripheral neuropathy Dermatophytosis Macular degeneration Hypercholesteremia Anemia Metastatic bone tumor Metastatic disease Cancer related pain Hypertension Breast cancer Diabetes Home Medications ?Medication ?Instructions ?Recorded ?Last Taken ?Type aspirin 81 mg chewable tablet 81 mg PO DAILY@0800 prophylaxis 01/01/13 1 Day Ago History ~05/07/16 cyanocobalamin (vitamin B-12) 1,000 mcg PO DAILY vitamin 01/01/13 Unknown History 1,000 mcg/mL oral drops (Vitamin B-12) [id number]-minerals 1 ea PO DAILY 09/23/17 Unknown History (Multiple Vitamin, Womens tablet) ferrous sulfate 140 mg (45 mg 140 mg PO DAILY SUPPLEMENT 12/14/23 Unknown History iron) tablet,extended release (Slow Release Iron) metformin 1,000 mg tablet 1,000 mg PO BID DM 12/14/23 Unknown History oxycodone 5 mg tablet 5 mg PO Q8H PRN PRN severe pain 12/14/23 Unknown History Lactobacillus rhamnosus GG 10 1 cap PO QDAY 01/27/24 Unknown History billion cell capsule (Culturelle) acetaminophen 325 mg chewable 650 mg PO Q4-6H PRN fever or pain 01/27/24 Unknown History tablet aluminum-magnesium hydroxide 225 5 ml PO .prn 01/27/24 Unknown History mg-200 mg/5 mL oral suspension ascorbic acid (vitamin C) 500 mg 500 mg PO DAILY 01/27/24 Unknown History capsule bisacodyl 10 mg rectal suppository 10 mg SD ONCE PRN constipation 01/27/24 Unknown History ondansetron HCl 4 mg tablet 4 mg PO Q8H 01/27/24 Unknown History sennosides 8.6 mg-docusate sodium 1 tab-cap PO QHS 01/27/24 Unknown History 50 mg tablet (Senna with Docusate Sodium) enalapril maleate 20 mg tablet 10 mg (1/2 x 20 mg) PO BIDCM BP 30 02/13/24 Unknown Rx days #0 tabs fluconazole 200 mg tablet 200 mg PO DAILY 2 days #2 tabs 02/13/24 Unknown Rx insulin lispro 100 unit/mL See Protocol subcut Q6 #0 mL 02/13/24 Unknown Rx subcutaneous pen (Humalog KwikPen (U-100) Insulin) lactulose 20 gram/30 mL oral 10 g (15 mL) PO BID #0 mL 02/13/24 Unknown Rx solution melatonin 10 mg sublingual tablet 10 mg PO QHS PRN PRN Insomnia #0 02/13/24 Unknown Rx tabs mirtazapine 15 mg tablet (Remeron) 7.5 mg (1/2 x 15 mg) PO QHS 30 02/13/24 Unknown Rx days #0 tabs nystatin 100,000 unit/mL oral 500,000 unit (5 mL) PO 4X/DAY 3 02/13/24 Unknown Rx suspension days #60 mL pantoprazole 40 mg tablet,delayed 40 mg PO BID 30 days #60 tabs 02/13/24 Unknown Rx release (Protonix) Allergy/AdvReac Type Severity Reaction Status Date / Time acetaminophen (From Vicodin) AdvReac Vomiting Verified 02/05/24 15:28 hydrocodone bitartrate (From AdvReac Vomiting Verified 02/05/24 15:28 Vicodin) Family History Mother Diabetes Father Hypertension Surgical History History of spinal surgery History of coronary artery bypass graft Social History household members: family housing: shelter Smoking Status: Former smoker how long ago did patient quit smoking: Quit > 50 years prior. alcohol intake: never substance use type: does not use ROS ROS ED Constitutional Constitutional ED: Reports other Details: Fatigue, decreased appetite Cardiovascular Cardiovascular: Denies chest pain Respiratory/Chest Respiratory/Chest: Denies cough or dyspnea Gastrointestinal Gastrointestinal: Reports nausea and vomiting; Denies abdominal pain Musculoskeletal Musculoskeletal: Reports other Details: Right leg pain Integumentary Reports other Details: Chronic sacral decubitus wound Neurologic Neurologic: Reports weakness Hematologic/Lymphatic Hematologic/Lymphatic: Denies anemia or easy bleeding EXAM Physical Exam Const Vital Signs: 02/24/24 15:22 02/24/24 15:28 02/24/24 17:21 Temperature 98.8 F Temperature Source Oral Pulse Rate 100 105 H Respiratory Rate 16 14 Respiratory Effort Normal Respiratory Pattern Normal Blood Pressure 151/74 H 131/59 H Blood Pressure Mean 99 83 Pulse Ox 98 97 Oxygen Delivery Method Room Air 02/24/24 19:00 02/24/24 21:00 Temperature Temperature Source Pulse Rate 106 H 114 H Respiratory Rate 16 18 Respiratory Effort Respiratory Pattern Blood Pressure 146/55 H 132/55 H Blood Pressure Mean 85 80 Pulse Ox 99 98 Oxygen Delivery Method Room Air Room Air Positive cachectic General Appearance ED: cachectic and NAD Nutritional Appearance: cachectic HEENT Reports dry mucous membranes HEENT Narrative: Bacterial overgrowth of the tongue Mouth ED: Yes dry mucous membranes Mouth: dry mucous membranes Eyes PERRL Chest Wall inspection of chest normal and palpation of chest normal Resp normal respiratory effort and clear to auscultation bilaterally Cardio regular rhythm Rate: tachycardic GI normal to inspection, nondistended, normoactive bowel sounds and non-tender GI Narrative: Normal rectal tone on exam Extremity Extremity Narrative: No deformity of the extremities. No reproducible tenderness on palpation. Neuro Neuro Narrative: Patient does not have any movement of the lower extremities. She does report intact sensation to the lower extremities. She is not able to wiggle her toes. She is not able to shift in bed. Sensorium / Orientation: alert and orientation impaired Motor Exam: general weakness Psych mental status grossly normal Skin no rashes or lesions noted and no wounds MDM MDM MDM Narrative Medical decision making narrative: Patient is evaluated for worsening weakness, right leg pain and was actually sent in for outpatient labs that showed anemia with a hemoglobin of 6.9 and concern for her needing a blood transfusion. Chart review shows that patient received radiation treatment palliatively at T8-T12. On 12/17/2023 patient had laminectomy of T8 through C10 with open biopsy and posterior spine fusion of T7- T11. She was admitted on 02/04 for hyponatremia and LULU. At that time she was severely weak but was moving all of her extremities. Outpatient labs today showed a white blood cell count of 13.4, hemoglobin of 6.9 (baseline appears around 7). Repeat labs obtained. Patient states she will take a blood transfusion if it is necessary. Patient is tachycardic. She appears very weak and dehydrated. Is given IV fluids in the ER. Her hemoglobin is now 9.1. I suspect she is now hemoconcentrated. Will hold off on blood transfusion at this time a type and screen is sent. Her creatinine is bumped slightly from 0.89-1.04 over the past 2 days. No significant electrolyte abnormalities. Lactate is normal. She has this persistent tachycardia and I am concerned with infection. Urinalysis is highly consistent with pyuria with greater than 100 white blood cells. On exam it seems that there is purulence coming from around the urethra. She does have chronic wound to her sacrum that does not appear acutely infected at this time. Patient is not moving her extremities are not sure how long this been going on. I am concerned that she could have some type of paralysis. She has good rectal tone CT of the abdomen and pelvis as well as chest is obtained which shows redemonstration of metastatic lesions of the T9 vertebral body and right scapula with increased distraction and continue large right breast mass. In addition she has mild bilateral hydroureteronephrosis with no obstruction seen. Patient started on IV Rocephin for urinary tract infection. Will be admitted for further evaluation of this progression of her lower extremity weakness with concern for metastatic involvement causing it. 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 I question if there could be recurrence of this that is progressed and causing her weakness now. Is not clear how long she has had weakness of her lower extremities but seems to be progressing over the past 2 weeks or so. Case discussed with hospitalist and will be admitted for treatment of urinary tract infection, IV fluids, monitoring of her H&H and further evaluation of her spine. History & Record Review Additional record(s) reviewed:: Prior inpatient record Lab Data Attestation: I reviewed the patient's lab results. Labs: Laboratory Results - last 24 hr 02/24/24 02/24/24 02/24/24 16:10 17:20 20:55 WBC 11.4 H RBC 3.57 L Hgb 9.1 L Hct 29.4 L MCV 82.4 MCH 25.5 L MCHC 31.0 L RDW Std Deviation 55.1 H RDW Coeff of Annika 18.4 H Plt Count 452 H MPV 9.1 Sodium 137 Potassium 4.3 Chloride 106 Carbon Dioxide 22.0 Anion Gap 9 BUN 25 H Creatinine 1.04 H Estim Creat Clear Calc 37.86 Est GFR (MDRD) Af Amer 66 Est GFR (MDRD) Non-Af 54 L BUN/Creatinine Ratio 24.0 H Glucose 112 H Lactic Acid 1.7 Calcium 9.4 Total Creatine Kinase 33 Urine Color Yellow Urine Clarity Cloudy Urine pH 5.0 Ur Specific [place] 1.015 Urine Protein 30 H Urine Glucose (UA) Normal Urine Ketones Negative Urine Occult Blood 10 H Urine Nitrite Negative Urine Bilirubin Negative Urine Urobilinogen Normal Ur Leukocyte Esterase 500 H Urine RBC 0-5 SEEN Urine WBC >100 SEEN Ur Squamous Epith Cells 0-5 SEEN Ur Transition Epith Cell 0-5 SEEN Other Crystals [place] Urine Bacteria 0 SEEN Urine Mucus 0 SEEN Urine Yeast 3+ Radiography Diagnostic Testing: Clinical Impression(s) from Imaging Studies Ankle X-Ray 02/24/24 17:40 IMPRESSION: No acute radiographic abnormalities. Electronically Signed: Noah Bertrand MD at 18:07 EST , Foot X-Ray 02/24/24 17:40 IMPRESSION: No acute radiographic abnormalities. Electronically Signed: Noah Bertrand MD at 18:07 EST , Chest/Abdomen/Pelvis CT 02/24/24 17:48 IMPRESSION: Redemonstration of metastatic lesions in the T9 vertebral body and right scapula with increased destruction. Redemonstration of large right breast mass with axillary lymphadenopathy. Mild bilateral hydroureteronephrosis with no obstructing stone or mass seen. Electronically Signed: Noah Bertrand MD at 18:44 EST , Management Discussion w/another healthcare provider: Hospitalist Discharge Plan Dx/Rx/DC Orders Clinical Impression: Metastatic bone tumor, Physical debility, Acute UTI, Acute dehydration, Tachycardia Disposition Disposition: Acute Care Hospital [facility] Discharge Date/Time: 02/24/24 22:59
--- NOTE | 2024-02-24 17:40 | RAD_ITS ---
INDICATION: pain EXAMINATION/TECHNIQUE: X-RAY - RIGHT XR Foot Min 3 Views COMPARISON: None. FINDINGS: No acute fracture or malalignment. No blastic or lytic lesions. Moderate scattered degenerative changes. The soft tissues are unremarkable. RAD/Foot min 3 Views IMPRESSION: No acute radiographic abnormalities. Electronically Signed: Noah Bertrand MD at 18:07 EST ,
--- NOTE | 2024-02-24 17:40 | RAD_ITS ---
INDICATION: pain EXAMINATION/TECHNIQUE: X-RAY - RIGHT XR Ankle Min 3 Views COMPARISON: None. FINDINGS: No acute fracture or malalignment. No blastic or lytic lesions. Moderate scattered degenerative changes. The soft tissues are unremarkable. RAD/Ankle min 3 Views IMPRESSION: No acute radiographic abnormalities. Electronically Signed: Noah Bertrand MD at 18:07 EST ,
--- NOTE | 2024-02-24 17:48 | CT_ITS ---
INDICATION: hx of veronique metastesis, leg weakness EXAMINATION: CT Chest Abdomen And Pelvis W/O Contrast Injection TECHNIQUE: Images were obtained of the chest, abdomen and pelvis without IV contrast. A radiation dose optimization technique was used for this scan. COMPARISON: 12/14/2023. FINDINGS: Evaluation of the solid organs and vascular structures is limited without intravenous contrast. Lungs: Unremarkable Mediastinum: The cardiomediastinal silhouette is not enlarged. There is right axillary lymphadenopathy. Mild aortic arch and coronary artery calcifications. No obvious filling defect seen within the visualized pulmonary arteries. Pleura: Trace right pleural effusion. Liver: Unremarkable Gallbladder: Unremarkable Spleen: Unremarkable Pancreas: Unremarkable Adrenal Glands: Unremarkable Kidneys: Mild bilateral hydroureteronephrosis. Vasculature: Severe aortoiliac atherosclerotic disease. GI Tract: Unremarkable Lymphadenopathy: None Peritoneum: No ascites. Bladder: Unremarkable Reproductive organs: Unremarkable Bones/Soft tissues: Redemonstration of a large right breast mass. Redemonstration of metastatic lesions in the T9 vertebral body and right scapula with increased destruction. Status post posterior fusion T7-T11. CT/CT Chest, Abd, Pelvis WO Cont IMPRESSION: Redemonstration of metastatic lesions in the T9 vertebral body and right scapula with increased destruction. Redemonstration of large right breast mass with axillary lymphadenopathy. Mild bilateral hydroureteronephrosis with no obstructing stone or mass seen. Electronically Signed: Noah Bertrand MD at 18:44 EST ,
[2024-02-24 17:53] LABS: Anion Gap 9 (5-15); BUN 25 mg/dL (7-18); CPK Total, Creatine Kinase 33 U/L (26-192); Calcium,Total 9.4 mg/dL (8.5-10.1); Chloride 106 mmol/L (98-107); Creatinine, Serum 1.04 mg/dL (0.55-1.02); EST Glomerular Filtration Rate 54 mL/min (>60); Est Glom Filt Rate - Afr Amer 66 mL/min (>60); Estimated Creatinine Clearance 37.86 ml/min; Glucose 112 mg/dL (74-106); Potassium 4.3 mmol/L (3.5-5.1); Sodium Level 137 mmol/L (136-145)
[2024-02-24 19:19] LABS: Bacteria 0 SEEN /hpf (None Seen); Mucous, Urine 0 SEEN /hpf (<or=2+)
[2024-02-24 19:25] LABS: Color, Urine Yellow (Yellow); Glucose, Dipstick Normal (Normal); Ketone-Dipstick Negative (Negative); Leukocyte Esterase-Dipstick 500 /ul (Negative); Nitrite-Dipstick Negative (Negative); Occult Blood-Urine 10 /ul (Negative); Protein-Dipstick 30 mg/dl (Negative); Specific Gravity, Urine 1.015 (1.002-1.030); Urine Bilirubin Dipstick Negative (Negative); Urine Clarity Cloudy (Clear); Urine Urobilinogen Normal (Normal)
[2024-02-24] MEDS: oxyCODONE 5 MG Tablet PO (19:41)
[2024-02-24 19:49] LABS: White Blood Cells >100 SEEN /hpf (0-5)
[2024-02-24 19:51] LABS: Red Blood Cells-Urine 0-5 SEEN /hpf (0-5)
[2024-02-24 19:52] LABS: Transitional Epithelial - Ur 0-5 SEEN /hpf (0-5)
[2024-02-24 19:56] LABS: Squamous Epithelial Cells - UA 0-5 SEEN /hpf (5-10)
[2024-02-24] MEDS: Ondansetron 4 MG/2 ML Vial IV (19:56)
[2024-02-24 19:59] LABS: Yeast-Urine 3+ /hpf (None Seen)
[2024-02-24 20:07] LABS: Other Crystals-Urine HIPPUR /hpf (None Seen)
[2024-02-24] MEDS: Ceftriaxone 1 GM/50 ML BAG IV (21:15)
[2024-02-24 21:41] LABS: Lactic Acid 1.7 mmol/L (0.4-1.9)
--- NOTE | 2024-02-24 22:32 | ED.RN ---
Multiple attempts by this RN to obtain the second set of blood cultures, this RN was unable to obtain. This RN initiated IV antibiotics to prevent delay in treatment. However, second set of blood cultures were obtained after initiation of antibiotics by a different RN. notified.
[2024-02-25] VITALS (8 sets, daily range): BP systolic 119–161; BP diastolic 57–73; PULSE 72–116; RESP 16–18; TEMP 36.9–38.1; O2SAT 99–100
--- NOTE | 2024-02-25 05:31 | PCM.HP.STD ---
HPI - General General Date of Admission: 02/24/24 Date of Service: 02/24/24 Chief Complaint: Worsening lower extremity weakness with dehydration HPI Narrative CISCO CORTEZ, is a 78 F who presented to [facility] ED on 02/24/2024 from SNF for worsening lower extremity weakness and dehydration. Patient was recently hospitalized here from 02/04-02/12. 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 She recently underwent 5 rounds of radiation to her extensive T9 spinal lesion with Dr. Joaquin. A few days after those treatments were done she was hospitalized with LULU with hypernatremia suspected secondary to poor p.o. intake. During the hospitalization she failed a modified barium swallow study and had an EGD done with Dr. Adams that showed eosinophilic esophagitis that was treated with argon plasma coagulation. She was placed on a modified diet by speech therapy and was stable for discharge to SNF on 02/12. Patient was living with her son who accompanied her to the ED today. Son notes that patient has had poor p.o. intake at the facility over the past week or so and her legs have been significantly weaker over the past day or 2. She had repeat labs drawn earlier today which showed slightly worsening creatinine and apparent worsened hemoglobin down to 6.9 from baseline 8-9, so she was brought here for further evaluation. In the ED she was tachycardic to the 110s but otherwise normotensive and hemodynamically stable on room air. Labs here were notable for WBC count 11, hemoglobin 9.1, were otherwise unremarkable. UA showed 500 leukocyte esterase, negative nitrites, greater than 100 WBCs, 0 bacteria, 3+ yeast. CT chest abdomen pelvis showed redemonstration of metastatic lesions in the T9 vertebral body and right scapula with increased distraction, redemonstration of large right breast mass with axillary lymphadenopathy, mild bilateral hydroureteronephrosis with no obstructing stone or mass. Given all these findings, hospitalist was contacted for admission. I saw the patient at bedside in the ED, son was present. Patient was very fatigued appearing but otherwise laying back comfortably in bed. She was able to tell me her name and date of and that she was at [facility], but she otherwise could not tell me month or year and was not answering questions appropriately for me. Had extensive discussion at the bedside with patient's son. He notes that patient seemed to be doing much better when she was discharged about a week and a half ago. He states that she seemed to have gotten some strength back and was tolerating the new diet for speech therapy without issue. He also notes that she had fairly good movement of her legs on that discharge. His main concerns today are that she has had very poor appetite and has not been eating much at the facility, and she has had significant worsening of her leg movement. Of note, patient's daughter is POA and brought in paperwork today confirming that patient is DNR CCA, DNI. I discussed with the son that patient does not appear to be doing well and I am very concerned about her long-term outlook given her metastatic cancer and now eosinophilic esophagitis with difficulty eating, along with potential progression of her T9 metastatic lesion leading to severe bilateral lower leg weakness versus paralysis. He desired to remain more optimistic about her care and I noted that patient will work with PT/OT and speech therapy today to see how she does. [facility] Medical History Pressure ulcer Hypernatremia Physical debility Psoriasis Diabetic peripheral neuropathy Dermatophytosis Macular degeneration Hypercholesteremia Anemia Metastatic bone tumor Metastatic disease Cancer related pain Hypertension Breast cancer Diabetes Home Medications ?Medication ?Instructions ?Recorded ?Last Taken ?Type aspirin 81 mg chewable tablet 81 mg PO DAILY@0800 prophylaxis 01/01/13 1 Day Ago History ~05/07/16 cyanocobalamin (vitamin B-12) 1,000 mcg PO DAILY vitamin 01/01/13 Unknown History 1,000 mcg/mL oral drops (Vitamin B-12) xnenjoccbvjw-Sn-cajo-minerals 1 ea PO DAILY wound healing 09/23/17 Unknown History (Multiple Vitamin, Womens tablet) ferrous sulfate 140 mg (45 mg 140 mg PO DAILY SUPPLEMENT 12/14/23 Unknown History iron) tablet,extended release (Slow Release Iron) metformin 1,000 mg tablet 1,000 mg PO BID DM 12/14/23 Unknown History oxycodone 5 mg tablet 5 mg PO Q8H PRN PRN severe pain 12/14/23 Unknown History Lactobacillus rhamnosus GG 10 1 cap PO QDAY gut health 01/27/24 Unknown History billion cell capsule (Culturelle) acetaminophen 325 mg chewable 650 mg PO Q4-6H PRN fever or pain 01/27/24 Unknown History tablet aluminum-magnesium hydroxide 225 5 ml PO PRN GI Distress 01/27/24 Unknown History mg-200 mg/5 mL oral suspension ascorbic acid (vitamin C) 500 mg 500 mg PO DAILY wound care 01/27/24 Unknown History capsule bisacodyl 10 mg rectal suppository 10 mg GA ONCE PRN constipation 01/27/24 Unknown History ondansetron HCl 4 mg tablet 4 mg PO Q8H nausea 01/27/24 Unknown History sennosides 8.6 mg-docusate sodium 1 tab-cap PO QHS constipation 01/27/24 Unknown History 50 mg tablet (Senna with Docusate Sodium) enalapril maleate 20 mg tablet 10 mg (1/2 x 20 mg) PO BIDCM BP 30 02/13/24 Unknown Rx days #0 tabs fluconazole 200 mg tablet 200 mg PO DAILY 2 days #2 tabs 02/13/24 Unknown Rx insulin lispro 100 unit/mL See Protocol subcut Q6 #0 mL 02/13/24 Unknown Rx subcutaneous pen (Humalog KwikPen (U-100) Insulin) melatonin 10 mg sublingual tablet 10 mg PO QHS PRN PRN Insomnia #0 02/13/24 Unknown Rx tabs mirtazapine 15 mg tablet (Remeron) 7.5 mg (1/2 x 15 mg) PO QHS 30 02/13/24 Unknown Rx days #0 tabs nystatin 100,000 unit/mL oral 500,000 unit (5 mL) PO 4X/DAY 3 02/13/24 Unknown Rx suspension days #60 mL pantoprazole 40 mg tablet,delayed 40 mg PO BID 30 days #60 tabs 02/13/24 Unknown Rx release (Protonix) lactulose 20 gram/30 mL oral 10 g PO DAILY constipation 02/25/24 Unknown History solution Allergy/AdvReac Type Severity Reaction Status Date / Time acetaminophen (From Vicodin) AdvReac Vomiting Verified 02/05/24 15:28 hydrocodone bitartrate (From AdvReac Vomiting Verified 02/05/24 15:28 Vicodin) Family History Mother Diabetes Father Hypertension Surgical History History of spinal surgery History of coronary artery bypass graft Social History household members: family housing: half-way Smoking Status: Former smoker how long ago did patient quit smoking: Quit > 50 years prior. alcohol intake: never substance use type: does not use ROS Review of Systems ROS Unobtainable: due to mental status Vital Signs Vital Signs Vital Signs: 02/24/24 15:22 02/24/24 15:28 02/24/24 17:21 Temperature 98.8 F Temperature Source Oral Pulse Rate 100 105 H Respiratory Rate 16 14 Respiratory Effort Normal Respiratory Depth Respiratory Pattern Normal Blood Pressure 151/74 H 131/59 H Blood Pressure Mean 99 83 Blood Pressure Source Blood Pressure Position Blood Pressure Location Pulse Ox 98 97 Oxygen Delivery Method Room Air 02/24/24 19:00 02/24/24 21:00 02/24/24 21:08 Temperature 98.5 F Temperature Source Pulse Rate 106 H 114 H 114 H Respiratory Rate 16 18 18 Respiratory Effort Respiratory Depth Respiratory Pattern Blood Pressure 146/55 H 132/55 H 132/55 H Blood Pressure Mean 85 80 80 Blood Pressure Source Blood Pressure Position Blood Pressure Location Pulse Ox 99 98 98 Oxygen Delivery Method Room Air Room Air 02/24/24 21:11 02/24/24 22:00 02/24/24 23:37 Temperature 98.5 F 98.5 F Temperature Source Oral Oral Pulse Rate 115 H 112 H Respiratory Rate 18 18 Respiratory Effort Normal Non-Labored Respiratory Depth Normal Respiratory Pattern Normal Blood Pressure 132/55 H 134/68 H Blood Pressure Mean 80 90 Blood Pressure Source Blood Pressure Position Blood Pressure Location Pulse Ox 98 100 Oxygen Delivery Method Room Air Room Air Room Air 02/24/24 23:48 Temperature 99.6 F H Temperature Source Temporal Pulse Rate 106 H Respiratory Rate 18 Respiratory Effort Respiratory Depth Respiratory Pattern Blood Pressure 122/55 H Blood Pressure Mean 77 Blood Pressure Source Monitor Blood Pressure Position Semi-Fowlers Blood Pressure Location Right Arm Pulse Ox 100 Oxygen Delivery Method Room Air Weight Weight: 48.6 kg Body Mass Index (BMI) 18.3 Physical Exam Const alert and no apparent distress Constitutional Narrative: Elderly female, thin and cachectic appearing, very fatigued and weak appearing, alert and oriented to person and place but not to time, not answering questions appropriately for me but otherwise laying back comfortably in bed and in no acute distress. General Appearance: cooperative and comfortable HEENT normocephalic, head/scalp atraumatic, hearing grossly normal bilaterally and nasal mucous membranes and turbinates normal HEENT Narrative: Dry mucous membranes. Eyes PERRL, EOMs intact bilaterally and conjunctivae normal Neck full ROM Chest inspection of chest normal Resp normal respiratory effort, normal air movement, no use of accessory muscles and clear to auscultation bilaterally Cardio regular rate, regular rhythm, no murmurs and peripheral pulses 2+ throughout GI normal to inspection, nondistended, normoactive bowel sounds, soft to palpation, non-tender and non-distended Back/Spine Back/Spine Narrative: No tenderness to palpation in the lumbar or thoracic spine. Extremity normal to inspection and no pedal edema Skin no rashes or lesions noted Neuro Neuro Narrative: Patient with 0/5 strength in bilateral lower extremities. However she does report feeling my touch down to the feet and both legs. No upper extremity deficits. Results Lab / Micro Data 02/24/24 16:10 02/24/24 16:10 Labs: Laboratory Results - last 24 hr 02/24/24 16:10: WBC 11.4 H, RBC 3.57 L, Hgb 9.1 L, Hct 29.4 L, MCV 82.4, MCH 25.5 L, MCHC 31.0 L, RDW Std Deviation 55.1 H, RDW Coeff of Annika 18.4 H, Plt Count 452 H, MPV 9.1, Sodium 137, Potassium 4.3, Chloride 106, Carbon Dioxide 22.0, Anion Gap 9, BUN 25 H, Creatinine 1.04 H, Estim Creat Clear Calc 37.86, Est GFR (MDRD) Af Amer 66, Est GFR (MDRD) Non-Af 54 L, BUN/Creatinine Ratio 24.0 H, Glucose 112 H, Calcium 9.4, Total Creatine Kinase 33 02/24/24 17:20: Urine Color Yellow, Urine Clarity Cloudy, Urine pH 5.0, Ur Specific [place] 1.015, Urine Protein 30 H, Urine Glucose (UA) Normal, Urine Ketones Negative, Urine Occult Blood 10 H, Urine Nitrite Negative, Urine Bilirubin Negative, Urine Urobilinogen Normal, Ur Leukocyte Esterase 500 H, Urine RBC 0-5 SEEN, Urine WBC >100 SEEN, Ur Squamous Epith Cells 0-5 SEEN, Ur Transition Epith Cell 0-5 SEEN, Other Crystals HIPPUR, Urine Bacteria 0 SEEN, Urine Mucus 0 SEEN, Urine Yeast 3+ 02/24/24 20:55: Lactic Acid 1.7 Imaging Radiology Impression Ankle X-Ray 02/24/24 17:40 IMPRESSION: No acute radiographic abnormalities. Electronically Signed: Noah Bertrand MD at 18:07 EST Reading Location ID and State: [id number] / [employer] Tel , Service support , Foot X-Ray 02/24/24 17:40 IMPRESSION: No acute radiographic abnormalities. Electronically Signed: Noah Bertrand MD at 18:07 EST Reading Location ID and State: [place] / [employer] Tel , Service support , Chest/Abdomen/Pelvis CT 02/24/24 17:48 IMPRESSION: Redemonstration of metastatic lesions in the T9 vertebral body and right scapula with increased destruction. Redemonstration of large right breast mass with axillary lymphadenopathy. Mild bilateral hydroureteronephrosis with no obstructing stone or mass seen. Electronically Signed: Noah Bertrand MD at 18:44 EST , Assessment & Plan Assessment/Plan (1) Adult failure to thrive: (2) Acute dehydration: (3) Physical debility: (4) Metastatic bone tumor: PLAN: Plan Patient is a 78-year-old female who [facility] ED [facility] 02/24/[facility] with worsening lower extremity weakness and dehydration. 1. Adult failure to thrive ? Admit under inpatient status to [facility]. PT/OT/case management consulted. Patient with BMI 18 on admit with cachexia, recent poor p.o. intake and worsening functional status in setting of metastatic cancer. Came from SNF and will likely be okay to return there on discharge pending further discussions regarding goals of care during this hospitalization. Further management as below. 2. Breast cancer with spinal metastasis and severely worsened bilateral lower extremity weakness, acute on chronic debility ? Patient was diagnosed with breast cancer initially back in 2020. Did not undergo any therapy at that time. Recently diagnosed with T9 extensive spinal metastasis. Underwent 5 rounds of radiation therapy with Dr. Joaquin in January. Notably had MRI lumbar spine done back in November that showed no metastatic lesions. Presented on this admit with no function of bilateral lower extremities. CT on admit showed known spinal lesion but no other new findings. Have concern that patient may have severe compromise of spinal cord leading to lower extremity weakness/paralysis. Unfortunately patient is a very poor surgical candidate. Can consider orthopedic surgery plus or minus radiation oncology consults. Appreciate therapy recommendations as well. 3. Dysphagia with recent diagnosis of eosinophilic esophagitis and oral thrush/candidiasis ? Speech therapy consulted. Patient had EGD done during recent prior hospitalization that showed findings consistent with eosinophilic esophagitis. She was treated with nystatin and fluconazole for oral thrush/candidiasis. Had moderate to severe dysphagia per speech therapy and required a modified diet. Will keep n.p.o. for now until she is seen by speech therapy. 4. Anemia ? Hemoglobin 6.9 on lab draw earlier on 02/23, however was up to 9.1 on repeat lab draw in the ED on the evening of 02/23. Patient did require 1 unit of blood during recent hospitalization. Given IV fluids in the ED here for dehydration. Follow-up a.m. CBC and transfuse for hemoglobin less than 7. 5. Stage II sacral decubitus ulcers ? Wound care consulted. 6. Concern for UTI ? UA somewhat infectious appearing. No systemic signs of infection. Will treat empirically with ceftriaxone for now. Follow-up urine culture. Chronic medical conditions: ? History of CAD with CABG, hypertension, hyperlipidemia: Continue home aspirin. Holding home enalapril. ? Type 2 diabetes mellitus with neuropathy: Will treat with sliding scale insulin for now. ? Chronic pain syndrome: Continue oxycodone as needed. ? Anxiety/depression: Continue mirtazapine at night. DVT prophylaxis: Lovenox CODE STATUS: DNR CCA, DNI Expected disposition: TBD Total clinical time spent by myself addressing the patient's medical issues, reviewing all the data, and collaborating with patient's care team: 75 minutes. Charges/Coding Visit Charges Inpatient E&M: 54752 Init Hosp L3
[2024-02-25] MEDS: Lactated Ringers 1,000 ML 75 ML IV (06:28)
[2024-02-25 06:42] LABS: Hematocrit 23.4 % (37-47); Mean Corp Hgb Conc 29.9 g/dL (32-36); Mean Corpuscular Hgb 25.5 pg (27.0-32.0); Mean Corpuscular Volume 85.4 fL (81-99); Mean Platelet Vol. 9.8 fl (6.2-12.0); Platelet Count 426 K/mm3 (150-450); RBC Distribution Width CV 18.5 % (11.6-14.6); RBC Distribution Width SD 57.6 fl (35.1-43.9); Red Blood Count 2.74 M/mm3 (4.2-5.4); White Blood Count 13.1 K/mm3 (4.4-11.0)
--- NOTE | 2024-02-25 07:26 | PN.HOSP_ITS ---
Reason for Visit Reason for Visit: Diagnoses Secondary malignant neoplasm of bone (02/24/24) Dehydration (02/24/24) Other malaise (02/24/24) Adult failure to thrive (02/24/24) Subjective Subjective atient is a 78-year-old female with past medical history signal for breast CVA with spinal metastasis who presented [facility] ED in 02/24/2024 with worsening lower extremity weakness and dehydration. Objective Data Objective Data Vital Signs: Vital Signs Temp Pulse Resp BP Pulse Ox O2 Del Method 100.1 F H 110 H 18 119/57 L 100 Room Air 02/25/24 05:58 02/25/24 05:58 02/25/24 05:58 02/25/24 05:58 02/25/24 05:58 02/25/24 05:58 Oxygen Delivery Method Room Air Weight: 48.6 kg Body Mass Index (BMI) 18.3 Intake & Output: Intake and Output for Last 24 Hours 02/23/24 02/24/24 02/25/24 23:59 23:59 23:59 Intake Total 550 / 550 0 / 0 Output Total 400 / 400 Balance 550 / 350 -400 / -400 Lab / Micro Data 02/25/24 05:25 02/25/24 05:25 Labs: Laboratory Results - last 24 hr 02/24/24 16:10: WBC 11.4 H, RBC 3.57 L, Hgb 9.1 L, Hct 29.4 L, MCV 82.4, MCH 25.5 L, MCHC 31.0 L, RDW Std Deviation 55.1 H, RDW Coeff of Annika 18.4 H, Plt Count 452 H, MPV 9.1, Sodium 137, Potassium 4.3, Chloride 106, Carbon Dioxide 22.0, Anion Gap 9, BUN 25 H, Creatinine 1.04 H, Estim Creat Clear Calc 37.86, Est GFR (MDRD) Af Amer 66, Est GFR (MDRD) Non-Af 54 L, BUN/Creatinine Ratio 24.0 H, Glucose 112 H, Calcium 9.4, Total Creatine Kinase 33 02/24/24 17:20: Urine Color Yellow, Urine Clarity Cloudy, Urine pH 5.0, Ur Specific [place] 1.015, Urine Protein 30 H, Urine Glucose (UA) Normal, Urine Ketones Negative, Urine Occult Blood 10 H, Urine Nitrite Negative, Urine Bilirubin Negative, Urine Urobilinogen Normal, Ur Leukocyte Esterase 500 H, Urine RBC 0-5 SEEN, Urine WBC >100 SEEN, Ur Squamous Epith Cells 0-5 SEEN, Ur Transition Epith Cell 0-5 SEEN, Other Crystals HIPPUR, Urine Bacteria 0 SEEN, Urine Mucus 0 SEEN, Urine Yeast 3+ 02/24/24 20:55: Lactic Acid 1.7 02/25/24 05:25: WBC 13.1 H, RBC 2.74 L, Hgb 7.0 L, Hct 23.4 L, MCV 85.4, MCH 25.5 L, MCHC 29.9 L, RDW Std Deviation 57.6 H, RDW Coeff of Annika 18.5 H, Plt Count 426, MPV 9.8 Radiography Diagnostic Testing: Radiology Impression Ankle X-Ray 02/24/24 17:40 IMPRESSION: No acute radiographic abnormalities. Electronically Signed: Noah Bertrand MD at 18:07 EST , Foot X-Ray 02/24/24 17:40 IMPRESSION: No acute radiographic abnormalities. Electronically Signed: Noah Bertrand MD at 18:07 EST , Chest/Abdomen/Pelvis CT 02/24/24 17:48 IMPRESSION: Redemonstration of metastatic lesions in the T9 vertebral body and right scapula with increased destruction. Redemonstration of large right breast mass with axillary lymphadenopathy. Mild bilateral hydroureteronephrosis with no obstructing stone or mass seen. Electronically Signed: Noah Bertrand MD at 18:44 EST , Physical Exam Narrative GENERAL: Frail looking HEENT: Atraumatic; normocephalic EYES; Anicteric, Normal Conjunctiva NECK; supple, normal thyroid, RESPIRATORY: Diminished to auscultation CARDIOVASCULAR: Regular S1 S2, GI: soft, normoactive bowel sounds, : No Renal angle tenderness; EXTREMITIES: No edema, no clubbing, MUSCULOSKELETAL: no muscle wasting NEURO: Awake; no lateralizing signs. SKIN: No Rash PSYCH; Flat affect Assessment & Plan Assessment/Plan (1) Adult failure to thrive: (2) Acute dehydration: (3) Physical debility: (4) Metastatic bone tumor: PLAN: Plan Patient is a 78-year-old female with past medical history signal for breast CVA with spinal metastasis who presented [facility] ED in 02/24/2024 with worsening lower extremity weakness and dehydration. 1. Physical deconditioning ? In the context of patient medical comorbidities with significant cachexia. Admitted to regular nursing floor requested for PT OT eval and social media editor to assist with discharge planning 2.2. Breast cancer with spinal metastasis and severely worsened bilateral lower extremity weakness, acute on chronic debility ? Patient was diagnosed with breast cancer initially back in 2020. Did not undergo any therapy at that time. Recently diagnosed with T9 extensive spinal metastasis. Underwent 5 rounds of radiation therapy with Dr. Joaquin in January. Notably had MRI lumbar spine done back in November that showed no metastatic lesions. Presented on this admit with no function of bilateral lower extremities. CT on admit showed known spinal lesion but no other new findings. Have concern that patient may have severe compromise of spinal cord leading to lower extremity weakness/paralysis. Unfortunately patient is a very poor surgical candidate. 3. Dysphagia with recent diagnosis of eosinophilic esophagitis and oral thrush/candidiasis ? Speech therapy consulted. Patient had EGD done during recent prior hospitalization that showed findings consistent with eosinophilic esophagitis. She was treated with nystatin and fluconazole for oral thrush/candidiasis. Had moderate to severe dysphagia per speech therapy and required a modified diet. Will keep n.p.o. for now until she is seen by speech therapy. 4. Anemia ? Secondary to chronic disorder monitoring H&H and transfuse if patient becomes symptomatic or hemoglobin falls below 7. An order was given for patient to be transfused with 1 unit PRBC following transfusion with 1 unit PRBC 5. Stage II sacral decubitus ulcers ? Wound care consulted. 6. Acute cystitis ? Patient started on ceftriaxone urine culture sent 7. Coronary artery disease ? Previous CABG 8. 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 Patient was placed on Accu-Cheks before meals and at bedtime with sliding scale coverage 9. Hypertension ? Blood pressure controlled, home medications continued with dose adjustment as needed 10. Dyslipidemia ? Per history currently not on any statin therapy 11. Chronic pain syndrome ? Patient is on oxycodone as needed will continue 12. Depression with anxiety ? Patient is on mirtazapine 13. Suspected protein calorie malnutrition ? With BMI of 18.3, muscle wasting and decreased energy level. Consult placed to dietitian 14. DVT prophylaxis ?Patient was started on enoxaparin discontinued following drop in her hemoglobin level Time spent in the patient's overall evaluation,decision-making process, review of diagnostic data, adjustment of management, discussion with other providers, nursing nursing and ancillary staff involved in patient's care documentation, 52 Minutes Charges/Coding Visit Charges Inpatient E&M: 39685 Subs Hosp L3
[2024-02-25 07:27] LABS: Anion Gap 9 (5-15); BUN 25 mg/dL (7-18); BUN/Creat Ratio 31.1 RATIO (10-20); Calcium,Total 8.4 mg/dL (8.5-10.1); Chloride 110 mmol/L (98-107); EST Glomerular Filtration Rate 73 mL/min (>60); Est Glom Filt Rate - Afr Amer 89 mL/min (>60); Estimated Creatinine Clearance 44.47 ml/min; Glucose 124 mg/dL (74-106); Potassium 4.5 mmol/L (3.5-5.1); Sodium Level 138 mmol/L (136-145)
[2024-02-25] MEDS: Ondansetron 4 MG/2 ML Vial IV (07:59)
[2024-02-25] MEDS: 0.9% Saline Lock 10 ML Syringe IV (08:00)
--- NOTE | 2024-02-25 08:19 | WOUNDNOTE ---
wound photo: mid upper back
--- NOTE | 2024-02-25 08:22 | WOUNDNOTE ---
wound photo: mid lower back/sacrum
--- NOTE | 2024-02-25 10:28 | CASEMGMT ---
Addendum entered by Steffi Brunner 02/26/24 11:37: Per conversation with [facility], facility has spoken with family about hospice but they have declined it. Additionally, family has not been open to conversations about plans should pt be cut from insurance. While [facility] feels its doubtful they can skill her for wound care, they will submit with hopes that denial will bring family more clarity on situation. SW updated. Steffi Brunner DC Planning Asst. Addendum entered by Steffi Brunner 02/26/24 10:37: Updates sent to [facility]. Precert will be started. Steffi Brunner DC Planning Asst. Addendum entered by Steffi Brunner 02/25/24 10:40: Pt will need new precert. Steffi Brunner DC Planning Asst. Original Note: Discharge Planning Updates sent to [facility] with note asking if precert will be needed. Awaiting response. Steffi Brunner DC Planning Asst.
--- NOTE | 2024-02-25 11:30 | NURSING ---
spoke with Ellen as listed in demographics, she states she is POA. Christina CORTEZ CM aware to find info to update demographics
--- NOTE | 2024-02-25 11:32 | NURSING ---
Ellen states she will not be in to see her mother d/t she has COVID but appreciates the phone call update. Consent obtained for blood.
[2024-02-25] MEDS: Acetaminophen 650 MG Suppository RC (14:52)
[2024-02-25] MEDS: NYSTATIN 500,000 UNIT/5 ML UDC 500000 UNIT PO ×3 (14:53→22:08)
[2024-02-25] MEDS: 0.9% Normal Saline (100mL Bag) 100 ML 15 ML IV ×2 (15:34→22:10)
--- NOTE | 2024-02-25 18:06 | NURSING ---
blood done, flushing iv tubing
[2024-02-25] MEDS: Mirtazapine 15 MG Tablet 7.5 MG PO (22:08)
[2024-02-25] MEDS: Acetaminophen 325 MG Tablet 650 MG PO (22:09)
[2024-02-25] MEDS: Pantoprazole Sodium 40 MG Tablet PO (22:09)
[2024-02-25] MEDS: Senna/Docusate Sodium 1 Tablet PO (22:09)
[2024-02-25] MEDS: oxyCODONE 5 MG Tablet PO (22:09)
[2024-02-25] MEDS: Ceftriaxone 1 GM/50 ML BAG IV (22:10)
[2024-02-26 05:20] VITALS: BP 132/62; PULSE 96; RESP 18; TEMP 36.6; O2SAT 100
[2024-02-26 05:23] LABS: Absolute Lymphocyte Count 1.08 X10^3/uL (0.83-4.51); Absolute Neutrophil Count 9.9 X10^3/uL (2.0-7.7); Basophil# 0.03 X10^3/uL; Basophil% 0.2 % (0-1); Eosinophil# 0.14 X10^3/uL; Eosinophils% 1.2 % (0-5); Hematocrit 28.2 % (37-47); Hemoglobin 8.7 g/dL (12.0-15.0); Lymphocyte # 1.08 X10^3/ul (0.83-4.51); Lymphocyte % 8.9 % (19-41); Mean Corp Hgb Conc 30.9 g/dL (32-36); Mean Corpuscular Hgb 26.2 pg (27.0-32.0); Mean Corpuscular Volume 84.9 fL (81-99); Mean Platelet Vol. 9.5 fl (6.2-12.0); Monocyte# 0.87 X10^3/uL; Monocyte% 7.2 % (0-10); NRBC Flagged by Analyzer 0.2 % (0-5); Neutrophil # 9.89 X10^3/uL (2.7-7.7); Neutrophil % 81.8 % (47-70); Platelet Count 366 K/mm3 (150-450); RBC Distribution Width CV 17.9 % (11.6-14.6); RBC Distribution Width SD 54.9 fl (35.1-43.9); Red Blood Count 3.32 M/mm3 (4.2-5.4); White Blood Count 12.1 K/mm3 (4.4-11.0)
[2024-02-26 05:38] LABS: Anion Gap 8 (5-15); BUN 22 mg/dL (7-18); BUN/Creat Ratio 25.1 RATIO (10-20); Calcium,Total 8.2 mg/dL (8.5-10.1); Chloride 113 mmol/L (98-107); Creatinine, Serum 0.88 mg/dL (0.55-1.02); EST Glomerular Filtration Rate 66 mL/min (>60); Est Glom Filt Rate - Afr Amer 80 mL/min (>60); Estimated Creatinine Clearance 40.42 ml/min; Glucose 158 mg/dL (74-106); Magnesium 1.6 mg/dL (1.6-2.6); Phosphorus 2.3 mg/dL (2.5-4.9); Potassium 4.1 mmol/L (3.5-5.1); Sodium Level 138 mmol/L (136-145)
--- NOTE | 2024-02-26 07:21 | PN.HOSP_ITS ---
Reason for Visit Reason for Visit: Diagnoses Secondary malignant neoplasm of bone (02/24/24) Dehydration (02/24/24) Other malaise (02/24/24) Adult failure to thrive (02/24/24) Subjective Subjective Patient urine cultures exhibited no growth patient be assessed for possible discharge back to Objective Data Objective Data Vital Signs: Vital Signs Temp Pulse Resp BP Pulse Ox O2 Del Method 97.9 F 96 18 132/62 H 100 Room Air 02/26/24 05:20 02/26/24 05:20 02/26/24 05:20 02/26/24 05:20 02/26/24 05:20 02/26/24 05:20 Oxygen Delivery Method Room Air Weight: 48.6 kg Body Mass Index (BMI) 18.3 Intake & Output: Intake and Output for Last 24 Hours 02/24/24 02/25/24 02/26/24 23:59 23:59 23:59 Intake Total 550 / 550 2276.50 / 2276.50 200 / 200 Output Total 600 / 600 300 / 300 Balance 550 / 350 1676.50 / 1676.50 -100 / -100 Medical Nutrition Assessment Dietitian: Malnutrition Criteria Met Start: 02/25/24 15:32 Freq: Status: Active Protocol: Document 02/25/24 15:32 SB (Rec: 02/25/24 15:32 SB [id number]) Nutrition Malnutrition Evidence of Malnutrition Exists Yes Malnutrition (severe): Chronic Evidenced By Suboptimal Energy Intake ( Severe),Weight Loss (Severe), Physical Changes (Severe) Intake Problem Increased Nutrient Needs (specify) Etiology protein related to wound healing Signs/Symptoms as evidenced by pressure injury on buttock and lower back Status Active Problem Clinical Problem Chronic Disease or Condition Related Malnutrition Etiology severe protein calorie malnutrition in the context of chronic metastatic disease related to inadequate oral intake, difficulty swallowing, and increased energy expenditure Signs/Symptoms as evidenced by 14% unintentional weight loss x 2- 3 months, PO meeting <50% of estimated nutrition needs x 1 week and muscle/fat wasting in clavicle, face, arms, and legs, BMI 18.3kg/m2 Status Active Problem Recommendation Dietitian Recommendations/Changes Recommend advanced diet as tolerated and deemed safe to liberal regular diet [employer] SAFET[employer] MANAGER consistency/texture recommendations. As diet is advanced, recommend 120ml ensure plus high protein 4x daily with medpass and yarely BID with breakfast and dinner. Will monitor weights closely. Reviewed and approved by Katelyn Curry, HODAN, RADHA. Lab / Micro Data 02/26/24 05:16 02/26/24 05:16 Labs: Laboratory Results - last 24 hr 02/24/24 16:10: Blood Type O POSITIVE, Antibody Screen NEGATIVE, Crossmatch See Detail 02/25/24 05:25: Sodium 138, Potassium 4.5, Chloride 110 H, Carbon Dioxide 18.0 L , Anion Gap 9, BUN 25 H, Creatinine 0.80, Estim Creat Clear Calc 44.47, Est GFR (MDRD) Af Amer 89, Est GFR (MDRD) Non-Af 73, BUN/Creatinine Ratio 31.1 H, G lucose 124 H, Calcium 8.4 L 02/26/24 05:16: WBC 12.1 H, RBC 3.32 L, Hgb 8.7 L, Hct 28.2 L, MCV 84.9, MCH 26.2 L, MCHC 30.9 L, RDW Std Deviation 54.9 H, RDW Coeff of Annika 17.9 H, Plt Count 366, MPV 9.5, Immature Gran % (Auto) 0.700, Neut % (Auto) 81.8 H, Lymph % (Auto) 8.9 L, [place] % (Auto) 7.2, Eos % (Auto) 1.2, Baso % (Auto) 0.2, Absolute Neuts (auto) 9.9 H, Absolute Lymphs (auto) 1.08, Nucleated RBC % 0.2, Sodium 138, Potassium 4.1, Chloride 113 H, Carbon Dioxide 17.0 L, Anion Gap 8, BUN 22 H , Creatinine 0.88, Estim Creat Clear Calc 40.42, Est GFR (MDRD) Af Amer 80, Est GFR (MDRD) Non-Af 66, BUN/Creatinine Ratio 25.1 H, Glucose 158 H, Calcium 8.2 L, Phosphorus 2.3 L, Magnesium 1.6 Micro: Microbiology 02/24/24 17:20 Urine Catheter - Quispe Urine Culture - Preliminary Culture exhibits no growth. Physical Exam Narrative GENERAL: Frail looking HEENT: Atraumatic; normocephalic EYES; Anicteric, Normal Conjunctiva NECK; supple, normal thyroid, RESPIRATORY: Diminished to auscultation CARDIOVASCULAR: Regular S1 S2, GI: soft, normoactive bowel sounds, : No Renal angle tenderness; EXTREMITIES: No edema, no clubbing, MUSCULOSKELETAL: no muscle wasting NEURO: Awake; no lateralizing signs. SKIN: No Rash PSYCH; Flat affect Assessment & Plan Assessment/Plan (1) Adult failure to thrive: (2) Acute dehydration: (3) Physical debility: (4) Metastatic bone tumor: PLAN: Plan Patient is a 78-year-old female with past medical history signal for breast CVA with spinal metastasis who presented [facility] ED in 02/24/2024 with worsening lower extremity weakness and dehydration. 1. Physical deconditioning ? In the context of patient medical comorbidities with significant cachexia. Admitted to regular nursing floor requested for PT OT eval and mental health social worker to assist with discharge planning 2.2. Breast cancer with spinal metastasis and severely worsened bilateral lower extremity weakness, acute on chronic debility ? Patient was diagnosed with breast cancer initially back in 2020. Did not undergo any therapy at that time. Recently diagnosed with T9 extensive spinal metastasis. Underwent 5 rounds of radiation therapy with Dr. Joaquin in January. Notably had MRI lumbar spine done back in November that showed no metastatic lesions. Presented on this admit with no function of bilateral lower extremities. CT on admit showed known spinal lesion but no other new findings. Have concern that patient may have severe compromise of spinal cord leading to lower extremity weakness/paralysis. Unfortunately patient is a very poor surgical candidate. 3. Dysphagia with recent diagnosis of eosinophilic esophagitis and oral thrush/candidiasis ? Speech therapy consulted. Patient had EGD done during recent prior hospitalization that showed findings consistent with eosinophilic esophagitis. She was treated with nystatin and fluconazole for oral thrush/candidiasis. Had moderate to severe dysphagia per speech therapy and required a modified diet. Will keep n.p.o. for now until she is seen by speech therapy. 4. Anemia ? Secondary to chronic disorder monitoring H&H and transfuse if patient becomes symptomatic or hemoglobin falls below 7. An order was given for patient to be transfused with 1 unit PRBC following transfusion with 1 unit PRBC 5. Stage II sacral decubitus ulcers ? Wound care consulted. 6. Acute cystitis ? Patient started on ceftriaxone urine culture sent ? Patient urine cultures however exhibited no growth patient will be assessed for possible discharge to her ECF 7. Coronary artery disease ? Previous CABG 8. 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 Patient was placed on Accu-Cheks before meals and at bedtime with sliding scale coverage 9. Hypertension ? Blood pressure controlled, home medications continued with dose adjustment as needed 10. Dyslipidemia ? Per history currently not on any statin therapy 11. Chronic pain syndrome ? Patient is on oxycodone as needed will continue 12. Depression with anxiety ? Patient is on mirtazapine 13. severe malnutrition Related to: chronic metastatic disease related to inadequate oral intake, difficulty swallowing, and increased energy expenditure As evidenced by: 14% unintentional weight loss x 2-3 months, PO meeting <50% of estimated nutrition needs x 1 week and muscle/fat wasting in clavicle, face, arms, and legs, BMI 18.3kg/m2 With treatment/resources used including: Recommend advanced diet as tolerated and deemed safe to liberal regular diet ARE[employer] SAFET[employer] MANAGER consistency/texture recommendations. As diet is advanced, recommend 120ml ensure plus high protein 4x daily with medpass and yarely BID with breakfast and dinner. Will monitor weights closely. 14. DVT prophylaxis ?Patient was started on enoxaparin discontinued following drop in her hemoglobin level Time spent in the patient's overall evaluation,decision-making process, review of diagnostic data, adjustment of management, discussion with other providers, nursing nursing and ancillary staff involved in patient's care documentation,36 Minutes Charges/Coding Visit Charges Inpatient E&M: 68980 Subs Hosp L2
[2024-02-26] MEDS: Aspirin 81 MG TAB.CHEW PO (08:38)
[2024-02-26] MEDS: Ascorbic Acid 500 MG Tablet PO (08:39)
[2024-02-26] MEDS: Lactobacillis Acidophilus 1 CAP PO (08:39)
[2024-02-26] MEDS: Pantoprazole Sodium 40 MG Tablet PO ×2 (08:39→20:25)
[2024-02-26] MEDS: NYSTATIN 500,000 UNIT/5 ML UDC 500000 UNIT PO ×4 (08:39→20:24)
[2024-02-26] MEDS: Senna/Docusate Sodium 1 Tablet PO ×2 (08:44→20:25)
[2024-02-26 09:50] VITALS: BP 139/82; PULSE 85; RESP 18; TEMP 36.6; O2SAT 100
[2024-02-26 11:15] VITALS: O2SAT 100
--- NOTE | 2024-02-26 12:33 | CASEMGMT ---
Social Work- SW called pt dtr to discuss preferences at d/c. Pt was not able to participate in therapy and CC is uncertain if they will be able to skill pt. [facility] reports that family has been unreceptive to conversations regarding plans for pt when pt is cut from services. When SW called pt dtr, she was unable to converse, as she was at the [facility]. Pt dtr requested a call back later today; SW agreeable. YAIR Slater
--- NOTE | 2024-02-26 15:00 | CASEMGMT ---
Discharge Planning [facility] notified that pt could potentially return over the weekend if precert is obtained. Provided [facility] with unit phone number. Green sheet completed and given to MELVIN. Steffi Brunner DC Planning Asst.
[2024-02-26] MEDS: Acetaminophen 325 MG Tablet 650 MG PO (15:12)
[2024-02-26] MEDS: oxyCODONE 5 MG Tablet PO ×2 (15:13→20:24)
--- NOTE | 2024-02-26 15:58 | CASEMGMT ---
[facility] has obtained auth to admit. Pt will need to admit by end of day 02/26. SW updated. Steffi Brunner DC Planning Asst.
--- NOTE | 2024-02-26 16:04 | TREXTCAR_ITS ---
Diet Diet Order/Speech Therapy: 02/25/24 16:11 Diet: Regular - General Food consistency:: Pureed Liquid Consistency:: Regular/Thin Diet Comments: Direct supervision Routine Orders/Code Status Code Status: DNRCC-A DC O2, CPAP, BIPAP needs Home O2 Discharge instructions: No Wound(s) upper back: Wound Type: healed incisons Dressing Change: foam dressings for protection lower back: Wound Type: Open Surgical Wound Dressing Change: AntiMicrobial (Aquacel AG, etc) buttocks: Wound Type: Pressure Injury sacrum: Wound Type: Pressure Injury Dressing Change: AntiMicrobial (Aquacel AG, etc) Therapies Physical Therapy: Eval and Treat Occupational Therapy: Eval and Treat Problem/Diagnosis (1) Adult failure to thrive: Status: Acute Code(s): R62.7 - Adult failure to thrive (2) Acute dehydration: Status: Acute Code(s): E86.0 - Dehydration (3) Physical debility: Status: Acute Code(s): R53.81 - Other malaise (4) Metastatic bone tumor: Status: Acute Code(s): C79.51 - Secondary malignant neoplasm of bone Plan Patient is a 78-year-old female with past medical history signal for breast CVA with spinal metastasis who presented [facility] ED in 02/24/2024 with worsening lower extremity weakness and dehydration. 1. Physical deconditioning ? In the context of patient medical comorbidities with significant cachexia. Admitted to regular nursing floor requested for PT OT eval and professor of social work to assist with discharge planning 2.2. Breast cancer with spinal metastasis and severely worsened bilateral lower extremity weakness, acute on chronic debility ? Patient was diagnosed with breast cancer initially back in 2020. Did not undergo any therapy at that time. Recently diagnosed with T9 extensive spinal metastasis. Underwent 5 rounds of radiation therapy with Dr. Joaquin in January. Notably had MRI lumbar spine done back in November that showed no metastatic lesions. Presented on this admit with no function of bilateral lower extremities. CT on admit showed known spinal lesion but no other new findings. Have concern that patient may have severe compromise of spinal cord leading to lower extremity weakness/paralysis. Unfortunately patient is a very poor surgical candidate. 3. Dysphagia with recent diagnosis of eosinophilic esophagitis and oral thrush/candidiasis ? Speech therapy consulted. Patient had EGD done during recent prior hospitalization that showed findings consistent with eosinophilic esophagitis. She was treated with nystatin and fluconazole for oral thrush/candidiasis. Had moderate to severe dysphagia per speech therapy and required a modified diet. Will keep n.p.o. for now until she is seen by speech therapy. 4. Anemia ? Secondary to chronic disorder monitoring H&H and transfuse if patient becomes symptomatic or hemoglobin falls below 7. An order was given for patient to be transfused with 1 unit PRBC following transfusion with 1 unit PRBC 5. Stage II sacral decubitus ulcers ? Wound care consulted. 6. Acute cystitis ? Patient started on ceftriaxone urine culture sent ? Patient urine cultures however exhibited no growth patient will be assessed for possible discharge to her ECF 7. Coronary artery disease ? Previous CABG 8. 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 Patient was placed on Accu-Cheks before meals and at bedtime with sliding scale coverage 9. Hypertension ? Blood pressure controlled, home medications continued with dose adjustment as needed 10. Dyslipidemia ? Per history currently not on any statin therapy 11. Chronic pain syndrome ? Patient is on oxycodone as needed will continue 12. Depression with anxiety ? Patient is on mirtazapine 13. severe malnutrition Related to: chronic metastatic disease related to inadequate oral intake, difficulty swallowing, and increased energy expenditure As evidenced by: 14% unintentional weight loss x 2-3 months, PO meeting <50% of estimated nutrition needs x 1 week and muscle/fat wasting in clavicle, face, arms, and legs, BMI 18.3kg/m2 With treatment/resources used including: Recommend advanced diet as tolerated and deemed safe to liberal regular diet [employer] GENER[employer] BR[employer] MAKER consistency/texture recommendations. As diet is advanced, recommend 120ml ensure plus high protein 4x daily with medpass and yarely BID with breakfast and dinner. Will monitor weights closely. 14. DVT prophylaxis ?Patient was started on enoxaparin discontinued following drop in her hemoglobin level Time spent in the patient's overall evaluation,decision-making process, review of diagnostic data, adjustment of management, discussion with other providers, nursing nursing and ancillary staff involved in patient's care documentation,36 Minutes Allergies/Procedures Done in Hospital Allergies acetaminophen (From Vicodin) Adverse Reaction (Verified 02/05/24 15:28) Vomiting hydrocodone bitartrate (From Vicodin) Adverse Reaction (Verified 02/05/24 15:28) Vomiting Type of Care/Length of Stay Estimated LOS: More Than 30 Days Type of Care Needed: Intermediate Rehab Potential: Fair Prognosis: Poor Additional Orders/Day of Discharge Day of Discharge: 02/26/24 Dietary and Speech Recommendations Dietitian Recommendations/Changes: Recommend advanced diet as tolerated and deemed safe to liberal regular diet [employer]KER consistency/texture recommendations. As diet is advanced, recommend 120ml ensure plus high protein 4x daily with medpass and yarely BID with breakfast and dinner. Will monitor weights closely. Reviewed and approved by Katelyn Curry RDN, LD. Discharge Plan Admission Admit Date/Time: 02/24/24 21:04 Attending Provider: Gagan Cohn Primary Care Provider: Emiliano ePlletier Consulting Providers: Cesar Marte Discharge Orders/Prescriptions Prescriptions: New oxycodone 5 mg Tablet 5 mg PO Q4H PRN (Reason: Pain Score 6-10) 4 Days Qty: 14 0RF acetaminophen 325 mg Tablet 650 mg PO Q6H PRN PRN (Reason: Pain 1-10 Or Fever>100.7) Qty: 0 0RF Continued ondansetron HCl 4 mg tablet 4 mg PO Q8H sennosides-docusate sodium [Senna with Docusate Sodium] 8.6-50 mg tablet 1 tab-cap PO QHS bisacodyl 10 mg suppository 10 mg CO ONCE PRN (Reason: constipation) aluminum-magnesium hydroxide 225-200 mg/5 mL suspension 5 ml PO PRN Culturelle 10 billion cell capsule 1 cap PO QDAY ascorbic acid (vitamin C) 500 mg capsule 500 mg PO DAILY acetaminophen 325 mg tablet,chewable 650 mg PO Q4-6H PRN (Reason: fever or pain) aspirin 81 MG tablet,chewable 81 mg PO DAILY@0800 Vitamin B-12 1,000 MCG/ML drops 1,000 mcg PO DAILY Multiple Vitamin, Womens 1 EACH tablet 1 ea PO DAILY Slow Release Iron 140 mg (45 mg iron) tablet extended release 140 mg PO DAILY metformin 1,000 mg tablet 1,000 mg PO BID melatonin 10 mg Tablet, Sublingual 10 mg PO QHS PRN PRN (Reason: Insomnia) Qty: 0 0RF nystatin 100,000 unit/mL Suspension 500,000 unit PO 4X/DAY 3 Days Qty: 60 0RF enalapril maleate 20 mg tablet 10 mg PO BIDCM 30 Days Qty: 0 0RF mirtazapine [Remeron] 15 mg tablet 7.5 mg PO QHS 30 Days Qty: 0 0RF pantoprazole [Protonix] 40 mg tablet,delayed release (DR/EC) 40 mg PO BID 30 Days Qty: 60 2RF Discontinued oxycodone 5 mg tablet 5 mg PO Q8H PRN PRN (Reason: severe pain) lactulose 20 gram/30 mL Solution 10 g PO DAILY insulin lispro [Humalog KwikPen Insulin] 100 unit/mL Insulin Pen See Protocol subcut Q6 Qty: 0 0RF Protocol: 3. Sliding Scale Insulin Med Dosing Condition: 150-189 mg/dl = 1 unit Condition: 190-229 mg/dl = 2 units Condition: 230-269 mg/dl = 3 units Condition: 270-309 mg/dl = 4 units Condition: 310-349 mg/dl = 5 units Condition: 350-399 mg/dl = 6 units Condition: 400-449 mg/dl = 7 units Condition: Greater than 449 call physician Protocol Text: - Use for Total Daily Dose of Insulin 37-55 units - Obsese, infected, or steroid patients MEDIUM DOSING ALGORITHIM fluconazole 200 mg tablet 200 mg PO DAILY 2 Days Qty: 2 0RF Referrals / Follow Up: Emiliano Pelletier DO [Primary Care Provider] - Within 2 Weeks Disposition Disposition (needs filled in before D/C Order can be placed): [facility] Facility
--- NOTE | 2024-02-26 16:10 | DS.PCM_ITS ---
Providers Date of Admission: 02/24/24 Date of Discharge: 02/26/24 Primary Care Physician: Dr. Emiliano Pelletier, DO Consultations 02/25/24 03:37 Consult: Onc/Wound/sld educational aide Routine Comment: Reason for Consult:: pressure ulcer Reason For Visit: METASTATIC BREAST CA W/ DEHYDRATION AND WORSENED Diagnosis Discharge Diagnosis (1) Adult failure to thrive: Status: Acute Code(s): R62.7 - Adult failure to thrive (2) Acute dehydration: Status: Acute Code(s): E86.0 - Dehydration (3) Physical debility: Status: Acute Code(s): R53.81 - Other malaise (4) Metastatic bone tumor: Status: Acute Code(s): C79.51 - Secondary malignant neoplasm of bone Plan Patient is a 78-year-old female with past medical history signal for breast CVA with spinal metastasis who presented [facility] ED in 02/24/2024 with worsening lower extremity weakness and dehydration. 1. Physical deconditioning ? In the context of patient medical comorbidities with significant cachexia. Admitted to regular nursing floor requested for PT OT eval and social worker health services to assist with discharge planning 2.2. Breast cancer with spinal metastasis and severely worsened bilateral lower extremity weakness, acute on chronic debility ? Patient was diagnosed with breast cancer initially back in 2020. Did not undergo any therapy at that time. Recently diagnosed with T9 extensive spinal metastasis. Underwent 5 rounds of radiation therapy with Dr. Joaquin in January. Notably had MRI lumbar spine done back in November that showed no metastatic lesions. Presented on this admit with no function of bilateral lower extremities. CT on admit showed known spinal lesion but no other new findings. Have concern that patient may have severe compromise of spinal cord leading to lower extremity weakness/paralysis. Unfortunately patient is a very poor surgical candidate. 3. Dysphagia with recent diagnosis of eosinophilic esophagitis and oral thrush/candidiasis ? Speech therapy consulted. Patient had EGD done during recent prior hospitalization that showed findings consistent with eosinophilic esophagitis. She was treated with nystatin and fluconazole for oral thrush/candidiasis. Had moderate to severe dysphagia per speech therapy and required a modified diet. Will keep n.p.o. for now until she is seen by speech therapy. 4. Anemia ? Secondary to chronic disorder monitoring H&H and transfuse if patient becomes symptomatic or hemoglobin falls below 7. An order was given for patient to be transfused with 1 unit PRBC following transfusion with 1 unit PRBC 5. Stage II sacral decubitus ulcers ? Wound care consulted. 6. Acute cystitis ? Patient started on ceftriaxone urine culture sent ? Patient urine cultures however exhibited no growth patient will be assessed for possible discharge to her ECF 7. Coronary artery disease ? Previous CABG 8. 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 Patient was placed on Accu-Cheks before meals and at bedtime with sliding scale coverage 9. Hypertension ? Blood pressure controlled, home medications continued with dose adjustment as needed 10. Dyslipidemia ? Per history currently not on any statin therapy 11. Chronic pain syndrome ? Patient is on oxycodone as needed will continue 12. Depression with anxiety ? Patient is on mirtazapine 13. severe malnutrition Related to: chronic metastatic disease related to inadequate oral intake, difficulty swallowing, and increased energy expenditure As evidenced by: 14% unintentional weight loss x 2-3 months, PO meeting <50% of estimated nutrition needs x 1 week and muscle/fat wasting in clavicle, face, arms, and legs, BMI 18.3kg/m2 With treatment/resources used including: Recommend advanced diet as tolerated and deemed safe to liberal regular diet ACCOUNTS RECEIVABLE SPECIALIST consistency/texture recommendations. As diet is advanced, recommend 120ml ensure plus high protein 4x daily with medpass and yarely BID with breakfast and dinner. Will monitor weights closely. 14. DVT prophylaxis ?Patient was started on enoxaparin discontinued following drop in her hemoglobin level Time spent in the patient's overall evaluation,decision-making process, review of diagnostic data, adjustment of management, discussion with other providers, nursing nursing and ancillary staff involved in patient's care documentation,36 Minutes Medications at Discharge Home Medications aspirin 81 mg chewable tablet 81 mg PO DAILY@0800 prophylaxis 01/01/13 cyanocobalamin (vitamin B-12) 1,000 mcg/mL oral drops (Vitamin B-12) 1,000 mcg PO DAILY vitamin 01/01/13 [id number]-Qq-mfbo-minerals (Multiple Vitamin, Womens tablet) 1 ea PO DAILY wound healing 09/23/17 ferrous sulfate 140 mg (45 mg iron) tablet,extended release (Slow Release Iron) 140 mg PO DAILY SUPPLEMENT 12/14/23 metformin 1,000 mg tablet 1,000 mg PO BID DM 12/14/23 Lactobacillus rhamnosus GG 10 billion cell capsule (Culturelle) 1 cap PO QDAY gut health 01/27/24 acetaminophen 325 mg chewable tablet 650 mg PO Q4-6H PRN fever or pain 01/27/24 aluminum-magnesium hydroxide 225 mg-200 mg/5 mL oral suspension 5 ml PO PRN GI Distress 01/27/24 ascorbic acid (vitamin C) 500 mg capsule 500 mg PO DAILY wound care 01/27/24 bisacodyl 10 mg rectal suppository 10 mg ID ONCE PRN constipation 01/27/24 ondansetron HCl 4 mg tablet 4 mg PO Q8H nausea 01/27/24 sennosides 8.6 mg-docusate sodium 50 mg tablet (Senna with Docusate Sodium) 1 tab-cap PO QHS constipation 01/27/24 enalapril maleate 20 mg tablet 10 mg (1/2 x 20 mg) PO BIDCM BP 30 days #0 tabs 02/13/24 melatonin 10 mg sublingual tablet 10 mg PO QHS PRN PRN Insomnia #0 tabs 02/13/24 mirtazapine 15 mg tablet (Remeron) 7.5 mg (1/2 x 15 mg) PO QHS 30 days #0 tabs 02/13/24 nystatin 100,000 unit/mL oral suspension 500,000 unit (5 mL) PO 4X/DAY 3 days #60 mL 02/13/24 pantoprazole 40 mg tablet,delayed release (Protonix) 40 mg PO BID 30 days #60 tabs 02/13/24 acetaminophen 325 mg tablet 650 mg (2 x 325 mg) PO Q6H PRN PRN Pain 1-10 Or Fever>100.7 #0 tabs 02/26/24 oxycodone 5 mg tablet 5 mg PO Q4H PRN Pain Score 6-10 4 days #14 tabs 02/26/24 Physical Exam Narrative GENERAL: Frail looking HEENT: Atraumatic; normocephalic EYES; Anicteric, Normal Conjunctiva NECK; supple, normal thyroid, RESPIRATORY: Diminished to auscultation CARDIOVASCULAR: Regular S1 S2, GI: soft, normoactive bowel sounds, : No Renal angle tenderness; EXTREMITIES: No edema, no clubbing, MUSCULOSKELETAL: no muscle wasting NEURO: Awake; no lateralizing signs. SKIN: No Rash PSYCH; Flat affect Medical Records Data Medical Nutrition Assessment Dietitian: Malnutrition Criteria Met Start: 02/25/24 15:32 Freq: Status: Active Protocol: Document 02/25/24 15:32 SB (Rec: 02/25/24 15:32 SB [id number]) Nutrition Malnutrition Evidence of Malnutrition Exists Yes Malnutrition (severe): Chronic Evidenced By Suboptimal Energy Intake ( Severe),Weight Loss (Severe), Physical Changes (Severe) Intake Problem Increased Nutrient Needs (specify) Etiology protein related to wound healing Signs/Symptoms as evidenced by pressure injury on buttock and lower back Status Active Problem Clinical Problem Chronic Disease or Condition Related Malnutrition Etiology severe protein calorie malnutrition in the context of chronic metastatic disease related to inadequate oral intake, difficulty swallowing, and increased energy expenditure Signs/Symptoms as evidenced by 14% unintentional weight loss x 2- 3 months, PO meeting <50% of estimated nutrition needs x 1 week and muscle/fat wasting in clavicle, face, arms, and legs, BMI 18.3kg/m2 Status Active Problem Recommendation Dietitian Recommendations/Changes Recommend advanced diet as tolerated and deemed safe to liberal regular diet ACCOUNTS RECEIVABLE SPECIALIST consistency/texture recommendations. As diet is advanced, recommend 120ml ensure plus high protein 4x daily with medpass and yarely BID with breakfast and dinner. Will monitor weights closely. Reviewed and approved by Katelyn Curry RDN, LD. Weight / BMI Weight Weight: 48.6 kg Body Mass Index (BMI) 18.3 ABG / Lab / Microbiology Data 02/26/24 05:16 02/26/24 05:16 Laboratory: Laboratory Results - last 24 hr 02/24/24 16:10: Crossmatch See Detail 02/26/24 05:16: WBC 12.1 H, RBC 3.32 L, Hgb 8.7 L, Hct 28.2 L, MCV 84.9, MCH 26.2 L, MCHC 30.9 L, RDW Std Deviation 54.9 H, RDW Coeff of Annika 17.9 H, Plt Count 366, MPV 9.5, Immature Gran % (Auto) 0.700, Neut % (Auto) 81.8 H, Lymph % (Auto) 8.9 L, Menard % (Auto) 7.2, Eos % (Auto) 1.2, Baso % (Auto) 0.2, Absolute Neuts (auto) 9.9 H, Absolute Lymphs (auto) 1.08, Nucleated RBC % 0.2, Sodium 138, Potassium 4.1, Chloride 113 H, Carbon Dioxide 17.0 L, Anion Gap 8, BUN 22 H , Creatinine 0.88, Estim Creat Clear Calc 40.42, Est GFR (MDRD) Af Amer 80, Est GFR (MDRD) Non-Af 66, BUN/Creatinine Ratio 25.1 H, Glucose 158 H, Calcium 8.2 L, Phosphorus 2.3 L, Magnesium 1.6 Microbiology: Microbiology 02/24/24 17:20 Urine Catheter - Quispe Urine Culture - Preliminary Yeast Like Organism D/C Instructions Discharge Diet: No restrictions Discharge Activity: Return to Normal Activity Call your doctor if you observe: Fever of 101 or Higher, Shortness of breath, Fainting spells and Chest pain DC O2, CPAP, BIPAP Needs Home O2 Discharge instructions: No Meaningful Use Info Meaningful Use Meaningful Use Diagnoses (Choose all that apply): None applicable Ischemic Stroke Statin Dosing Therapy Reference: STATIN DOSE THERAPY REFERENCE: * Patients > 75 years receive moderate or high dose statin therapy. * Patients 75 years or YOUNGER should receive HIGH intensity statin dose unless contraindicated. You will be required to document reason for non-treatment if statin daily dose does not meet guidelines. HIGH DOSE STATIN THERAPY DAILY Atorvastatin > than or = to 40 mg Rosuvastatin > than or = to 20 mg Amlodipine + Atorvastatin > than or = to 2.5/40 mg Ezetimibe + Simvastatin 10/80 mg Simvastatin 80mg Discharge Plan Admission Admit Date/Time: 02/24/24 21:04 Attending Provider: Gagan Cohn Primary Care Provider: Emiliano Pelletier Consulting Providers: Cesar Marte Discharge Orders/Prescriptions Prescriptions: New oxycodone 5 mg Tablet 5 mg PO Q4H PRN (Reason: Pain Score 6-10) 4 Days Qty: 14 0RF acetaminophen 325 mg Tablet 650 mg PO Q6H PRN PRN (Reason: Pain 1-10 Or Fever>100.7) Qty: 0 0RF Continued ondansetron HCl 4 mg tablet 4 mg PO Q8H sennosides-docusate sodium [Senna with Docusate Sodium] 8.6-50 mg tablet 1 tab-cap PO QHS bisacodyl 10 mg suppository 10 mg ID ONCE PRN (Reason: constipation) aluminum-magnesium hydroxide 225-200 mg/5 mL suspension 5 ml PO PRN Culturelle 10 billion cell capsule 1 cap PO QDAY ascorbic acid (vitamin C) 500 mg capsule 500 mg PO DAILY acetaminophen 325 mg tablet,chewable 650 mg PO Q4-6H PRN (Reason: fever or pain) aspirin 81 MG tablet,chewable 81 mg PO DAILY@0800 Vitamin B-12 1,000 MCG/ML drops 1,000 mcg PO DAILY Multiple Vitamin, Womens 1 EACH tablet 1 ea PO DAILY Slow Release Iron 140 mg (45 mg iron) tablet extended release 140 mg PO DAILY metformin 1,000 mg tablet 1,000 mg PO BID melatonin 10 mg Tablet, Sublingual 10 mg PO QHS PRN PRN (Reason: Insomnia) Qty: 0 0RF nystatin 100,000 unit/mL Suspension 500,000 unit PO 4X/DAY 3 Days Qty: 60 0RF enalapril maleate 20 mg tablet 10 mg PO BIDCM 30 Days Qty: 0 0RF mirtazapine [Remeron] 15 mg tablet 7.5 mg PO QHS 30 Days Qty: 0 0RF pantoprazole [Protonix] 40 mg tablet,delayed release (DR/EC) 40 mg PO BID 30 Days Qty: 60 2RF Discontinued oxycodone 5 mg tablet 5 mg PO Q8H PRN PRN (Reason: severe pain) lactulose 20 gram/30 mL Solution 10 g PO DAILY insulin lispro [Humalog KwikPen Insulin] 100 unit/mL Insulin Pen See Protocol subcut Q6 Qty: 0 0RF Protocol: 3. Sliding Scale Insulin Med Dosing Condition: 150-189 mg/dl = 1 unit Condition: 190-229 mg/dl = 2 units Condition: 230-269 mg/dl = 3 units Condition: 270-309 mg/dl = 4 units Condition: 310-349 mg/dl = 5 units Condition: 350-399 mg/dl = 6 units Condition: 400-449 mg/dl = 7 units Condition: Greater than 449 call physician Protocol Text: - Use for Total Daily Dose of Insulin 37-55 units - Obsese, infected, or steroid patients MEDIUM DOSING ALGORITHIM fluconazole 200 mg tablet 200 mg PO DAILY 2 Days Qty: 2 0RF Referrals / Follow Up: Emiliano Pelletier DO [Primary Care Provider] - Within 2 Weeks Disposition Disposition (needs filled in before D/C Order can be placed): [facility] Charges/Coding Visit Charges Inpatient E&M: 58498 Disch Hosp >30min
--- NOTE | 2024-02-26 16:22 | CASEMGMT ---
Social Work- Precert has been obtained.? Physician updated and pt is ready for discharge today.? DCA advised of discharge readiness. Final discharge arrangements and notification to patient/family as per discharge business planning director.? Disposition:[facility], skilled level of care under convalescent stay. YAIR Slater
--- NOTE | 2024-02-26 16:53 | CASEMGMT ---
Discharge Planning Discharge orders, signed med list, and transport time sent to [facility] via [facility]. Physicians will transport patient by cot at 7p. Nursing, SW, and pts son (Sal) updated. Sal stated that he would update Ellen (she has covid). Sal requested that he be called when pt is picked up so that he can meet her at the snf ([phone]). SW provided this information and asked to relay to nursing. Steffi Brunner DC Planning Asst.
[2024-02-26 18:09] VITALS: BP 130/68; PULSE 63; RESP 14; TEMP 36.3; O2SAT 99
[2024-02-26 20:13] VITALS: BP 147/77; PULSE 100; RESP 16; TEMP 36.6; O2SAT 100
[2024-02-26] MEDS: Mirtazapine 15 MG Tablet 7.5 MG PO (20:25)
[2024-02-26] MEDS: 0.9% Saline Lock 10 ML Syringe IV (20:34)
[2024-02-26] MEDS: Ondansetron 4 MG/2 ML Vial IM (20:54)
== END 2024-02-27 00:21 | DRG 91 ==
LOC: ED 16:29 → MS3 21:13
PROVIDERS: Admitting Provider Hospitalist; Emergency Provider Emergency Medicine; PCP Student in an Organized Health Care Education/Training Program; Visit Provider Internal Medicine
DX: G95.29 Other cord compression (principal); E43 Unspecified severe protein-calorie malnutrition; C79.51 Secondary malignant neoplasm of bone; B37.0 Candidal stomatitis; N30.00 Acute cystitis without hematuria; Z68.1 Body mass index [BMI] 19.9 or less, adult; L89.152 Pressure ulcer of sacral region, stage 2; R62.7 Adult failure to thrive; Z66 Do not resuscitate; C50.911 Malignant neoplasm of unspecified site of right female breast; E11.42 Type 2 diabetes mellitus with diabetic polyneuropathy; D63.0 Anemia in neoplastic disease; F32.A Depression, unspecified; I10 Essential (primary) hypertension; E86.0 Dehydration; I25.10 Atherosclerotic heart disease of native coronary artery without angina pectoris; K20.0 Eosinophilic esophagitis; Z79.4 Long term (current) use of insulin; E78.00 Pure hypercholesterolemia, unspecified; F41.9 Anxiety disorder, unspecified; M62.81 Muscle weakness (generalized); R53.81 Other malaise; G89.4 Chronic pain syndrome; Z95.1 Presence of aortocoronary bypass graft; Z79.82 Long term (current) use of aspirin; Z79.84 Long term (current) use of oral hypoglycemic drugs; Z79.899 Other long term (current) drug therapy; Z87.891 Personal history of nicotine dependence
CPT/HCPCS: 36415; 71250; 73610; 73630; 74176; 80048; 81001; 82550; 83605; 83735; 84100; 85025; 85027; 86850; 86900; 86901; 86920; 86922; 87086; 87088; 92610; 97162; 97166; 99285; P9040; A4216; J2405

== ENCOUNTER → 2024-03-07 10:30 | Outpatient (REF) | payer MEDICARE, SELFPAY | LOC: OLS.SW 10:30 | PROVIDERS: PCP Student in an Organized Health Care Education/Training Program; Visit Provider Internal Medicine | DX: D72.829 Elevated white blood cell count, unspecified (principal) | CPT/HCPCS: 87070; 87077; 87184; 87186; 87205 ==

== ENCOUNTER 2024-03-08 10:00 | Inpatient (IN) | payer MEDICARE, SELFPAY ==
[2024-03-08] VITALS (10 sets, daily range): BP systolic 91–139; BP diastolic 41–69; PULSE 99–123; RESP 12–18; TEMP 36.4–37.6; O2SAT 94–98; BMI 18.6; BMI 17.2
--- NOTE | 2024-03-08 10:07 | ED.RN ---
PT WAS ADMITTED AT [facility] A MONTH AGO AND STAYED FOR A WEEK. PT SEES DR RANGEL AND HER INTAKE HAS BEEN REDUCED. PT HAS A LG WOUND TO HER BACKSIDE. PT WAS ALSO TREATED FOR UTI AT LAST VISIT
--- NOTE | 2024-03-08 10:13 | EKG12_ITS ---
Test Reason : Blood Pressure : */* mmHG Vent. Rate : 112 BPM Atrial Rate : 112 BPM P-R Int : 142 ms QRS Dur : 64 ms QT Int : 328 ms P-R-T Axes : 25 -6 60 degrees QTcB Int : 447 ms Sinus tachycardia Otherwise normal ECG Confirmed by NOEMY KNIGHT, YAMINI ([id number]), continuity editor TEO RODRIGUEZ ([id number]) on 03/15/2024 6:49:08 AM Referred By: Confirmed By: YAMINI SALGUERO MD
--- NOTE | 2024-03-08 10:13 | RAD_ITS ---
STUDY: X-RAY CHEST REASON FOR EXAM: Female, 78 years old. Weakness TECHNIQUE: Single AP portable view of the chest. COMPARISON: None. FINDINGS: There is hyperinflation of the lungs consistent with chronic obstructive lung disease (COPD). There is no demonstrated pleural abnormality. Normal size heart. Normal mediastinum and amalia. Normal visualized pulmonary arteries. There is atherosclerotic calcification of the aortic arch with tortuosity. Prior intraventricular screw and anh fixation involving the mid and lower dorsal vertebrae. Heterogeneous appearance of the appendicular skeleton. Metastasis should be ruled out. There is no demonstrated abnormality of the visualized soft tissue structures of the upper abdomen. RAD/Chest 1 View (Portable) IMPRESSION: Hyperinflation. No focal infiltrate is seen. Heterogeneous appearance of the bones as described. Electronically Signed: Sam Baeza MD at 11:12 EST ,
--- NOTE | 2024-03-08 10:14 | EX.ED.DYSGE1 ---
HPI History of Present Illness Chief Complaint: Abn Labs Detail of Chief Complaint: Abnormal labs and not feeling well Informant: patient and family Narrative Narrative: Patient brought to the emergency department via EMS from extended-care facility for complaint of not feeling well for about 3 days. Patient had some lab work yesterday that showed an elevated WBC count and there is concern about dehydration. Patient's son also tells me that she is currently being treated for urinary tract infection. Patient denies vomiting or diarrhea although she said decreased p.o. intake. 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 Son tells me she had surgery at [facility] about a month and a half ago to decompress her spine. She is not ambulatory currently. [facility] Medical History Pressure ulcer Hypernatremia Physical debility Psoriasis Diabetic peripheral neuropathy Dermatophytosis Macular degeneration Hypercholesteremia Anemia Metastatic bone tumor Metastatic disease Cancer related pain Hypertension Breast cancer Diabetes Home Medications ?Medication ?Instructions ?Recorded ?Last Taken ?Type aspirin 81 mg chewable tablet 81 mg PO DAILY@0800 prophylaxis 01/01/13 1 Day Ago History ~05/07/16 cyanocobalamin (vitamin B-12) 1,000 mcg PO DAILY vitamin 01/01/13 Unknown History 1,000 mcg/mL oral drops (Vitamin B-12) [id number]-Gj-gxwx-minerals 1 ea PO DAILY wound healing 09/23/17 Unknown History (Multiple Vitamin, Womens tablet) ferrous sulfate 140 mg (45 mg 140 mg PO DAILY SUPPLEMENT 12/14/23 Unknown History iron) tablet,extended release (Slow Release Iron) metformin 1,000 mg tablet 1,000 mg PO BID DM 12/14/23 Unknown History Lactobacillus rhamnosus GG 10 1 cap PO QDAY gut health 01/27/24 Unknown History billion cell capsule (Culturelle) acetaminophen 325 mg chewable 650 mg PO Q4-6H PRN fever or pain 01/27/24 Unknown History tablet aluminum-magnesium hydroxide 225 30 ml PO PRN GI Distress 01/27/24 Unknown History mg-200 mg/5 mL oral suspension ascorbic acid (vitamin C) 500 mg 500 mg PO DAILY wound care 01/27/24 Unknown History capsule bisacodyl 10 mg rectal suppository 10 mg IL ONCE PRN constipation 01/27/24 Unknown History ondansetron HCl 4 mg tablet 4 mg PO Q8H PRN nausea 01/27/24 Unknown History sennosides 8.6 mg-docusate sodium 1 tab-cap PO QHS constipation 01/27/24 Unknown History 50 mg tablet (Senna with Docusate Sodium) enalapril maleate 20 mg tablet 10 mg (1/2 x 20 mg) PO BIDCM BP 30 02/13/24 Unknown Rx days #0 tabs mirtazapine 15 mg tablet (Remeron) 7.5 mg (1/2 x 15 mg) PO QHS 30 02/13/24 Unknown Rx days #0 tabs nystatin 100,000 unit/mL oral 500,000 unit (5 mL) PO 4X/DAY 3 02/13/24 Unknown Rx suspension days #60 mL pantoprazole 40 mg tablet,delayed 40 mg PO BID 30 days #60 tabs 02/13/24 Unknown Rx release (Protonix) acetaminophen 325 mg tablet 650 mg (2 x 325 mg) PO Q6H PRN PRN 02/26/24 Unknown Rx Pain 1-10 Or Fever>100.7 #0 tabs oxycodone 5 mg tablet 5 mg PO Q4H PRN Pain Score 6-10 4 02/26/24 Unknown Rx days #14 tabs acetaminophen 650 mg rectal 650 mg IL Q4H PRN fever or pain 03/08/24 Unknown History suppository dextrose 40 % oral gel (Glucose 20 g PO Q15M PRN hypoglycemia 03/08/24 Unknown History Gel) glucagon HCl 1 mg solution for 1 mg IM Q20M PRN hypoglycemia 03/08/24 Unknown History injection (Glucagon (HCl) Emergency Kit) guaifenesin 100 mg/5 mL oral 200 mg PO Q4H PRN congestion 03/08/24 Unknown History liquid (Adult Tussin Chest Congestion) magnesium hydroxide 400 mg/5 mL 30 ml PO DAILY PRN constipation 03/08/24 Unknown History oral suspension (Milk of Magnesia) melatonin 3 mg capsule 6 mg PO QHS PRN sleep 03/08/24 Unknown History Allergy/AdvReac Type Severity Reaction Status Date / Time acetaminophen (From Vicodin) AdvReac Vomiting Verified 03/08/24 10:08 hydrocodone bitartrate (From AdvReac Vomiting Verified 03/08/24 10:08 Vicodin) Family History Mother Diabetes Father Hypertension Surgical History History of spinal surgery History of coronary artery bypass graft Social History household members: family housing: retirement Smoking Status: Former smoker how long ago did patient quit smoking: Quit > 50 years prior. alcohol intake: never substance use type: does not use ROS ROS ED Review of Systems ROS Unobtainable: other Constitutional Constitutional ED: Reports lethargy; Denies chills, fever(s), sweats or weight loss Eyes Eyes: Denies blurry vision, change in vision or diplopia ENT ENT ED: Denies rhinorrhea or sore throat Cardiovascular Cardiovascular: Denies chest pain, orthopnea or racing heartbeat Respiratory/Chest Respiratory/Chest: Denies cough, dyspnea, dyspnea on exertion, orthopnea or sputum Gastrointestinal Gastrointestinal: Reports other Details: Decreased p.o. intake ; Denies abdominal pain, diarrhea, nausea or vomiting Genitourinary Genitourinary ED: Denies dysuria, hematuria or urinary frequency Musculoskeletal Musculoskeletal: Denies arthralgias, back pain, myalgias or neck pain Integumentary Denies abscess, Abrasions or rash Neurologic Neurologic: Reports weakness; Denies headache(s) Psychiatric Psychiatric: Denies anxiety, depression or suicidal thoughts Endocrine Endocrinology: Denies polydipsia, polyphagia or polyuria Hematologic/Lymphatic Hematologic/Lymphatic: Denies easy bleeding, easy bruising or lymphadenopathy Allergic/Immunologic Allergic/Immunologic ED: Denies mouth swelling, tongue swelling or urticaria EXAM Physical Exam Const Vital Signs: 03/08/24 10:01 03/08/24 10:04 03/08/24 10:05 Temperature 97.7 F L 97.7 F L Temperature Source Oral Oral Pulse Rate 105 H 105 H Respiratory Rate 16 16 Respiratory Effort Normal Respiratory Pattern Normal Blood Pressure 139/60 H 139/60 H Blood Pressure Mean 86 86 Pulse Ox 98 98 Oxygen Delivery Method Room Air Room Air 03/08/24 11:04 03/08/24 12:04 Temperature 97.6 F L 97.6 F L Temperature Source Oral Oral Pulse Rate 112 H 112 H Respiratory Rate 12 12 Respiratory Effort Respiratory Pattern Blood Pressure 111/64 111/64 Blood Pressure Mean 79 79 Pulse Ox Oxygen Delivery Method Room Air Room Air Positive well nourished and well developed General Appearance ED: well developed and NAD HEENT Reports TM's clear and dry mucous membranes; Denies moist mucous membranes normocephalic and atraumatic; Negative for trauma or tenderness Tympanic Membrane ED: Yes TM's clear Mouth ED: Yes dry mucous membranes Mouth: dry mucous membranes Eyes PERRL and EOMs intact bilaterally General Eye ED: Negative for pale conjunctiva or scleral icterus Neck no lymphadenopathy, supple and no JVD General: Negative for tenderness Chest Wall inspection of chest normal and palpation of chest normal Chest: Negative for tenderness Resp normal respiratory effort and clear to auscultation bilaterally Effort and Inspection: Negative for respiratory distress or pain with movement Auscultation: Negative for rhonchi, wheezes or diminished lung sounds Cardio regular rate, regular rhythm, S1 normal heart sound, S2 normal heart sound and no murmurs Peripheral Pulses: pulses 2+ throughout GI normal to inspection, nondistended, normoactive bowel sounds, soft to palpation, non-distended and no masses GI Narrative: Mild diffuse tenderness. There is no rebound, rigidity, or renal signs. No mass palpated. Back/Spine no CVA tenderness and no thoracic nor lumbar tenderness Extremity normal to inspection General Extremety ED: Negative for edema General Extremity: Negative for edema Neuro oriented x3, CN's II-XII intact bilaterally, no sensory deficits noted and gait normal Sensorium / Orientation: awake, alert, oriented to person, oriented to place and oriented to time Motor Exam: strength 5/5 throughout and strength abnormal Psych mental status grossly normal Skin no rashes or lesions noted and no wounds MDM MDM MDM Narrative Medical decision making narrative: Patient presents with complaint not feeling well for about 3 days. Concern for dehydration. She also had labs yesterday that showed an elevated WBC count. Son seems to think she may have a UTI. She had recent admission for dehydration and UTI. IV line established. CBC with differential obtained for white count of 23.8 with hemoglobin 8.1 and platelet count of 701. Chemistries unremarkable. BUN elevated 41 and creatinine 1.3. Lactate normal at 1.6. LFTs were normal. Troponin normal at 17 and lipase normal at 12. Urinalysis positive for UTI and urine culture sent. She was started on Zosyn initially prior to having results of urine as initially it was unclear as far as the source. Patient also had COVID flu and RSV testing which was positive for COVID-19. Patient was ordered normal saline fluid bolus. Urine culture sent. Will discuss with hospitalist to evaluate patient for admission. Lab Data Attestation: I reviewed the patient's lab results. Labs: Laboratory Results - last 24 hr 03/08/24 03/08/24 10:44 11:50 WBC 23.8 H RBC 3.10 L Hgb 8.1 L Hct 27.1 L MCV 87.4 MCH 26.1 L MCHC 29.9 L RDW Std Deviation 59.1 H RDW Coeff of Annika 18.6 H Plt Count 701 H MPV 9.9 Immature Gran % (Auto) 1.600 H Neut % (Auto) 87.0 H Lymph % (Auto) 6.6 L [place] % (Auto) 4.1 Eos % (Auto) 0.5 Baso % (Auto) 0.2 Absolute Neuts (auto) 20.7 H Absolute Lymphs (auto) 1.56 Nucleated RBC % 0 Differential Comment COMMENT Sodium 143 Potassium 4.0 Chloride 115 H Carbon Dioxide 21.0 Anion Gap 7 BUN 41 H Creatinine 1.30 H Estim Creat Clear Calc 27.64 Est GFR (MDRD) Af Amer 51 L Est GFR (MDRD) Non-Af 42 L BUN/Creatinine Ratio 31.5 H Glucose 170 H Lactic Acid 1.6 Calcium 9.8 Total Bilirubin 0.30 AST 20 ALT 15 Alkaline Phosphatase 109 Troponin I High Sens 17 Total Protein 7.7 Albumin 1.9 L Globulin 5.8 H Albumin/Globulin Ratio 0.3 L Lipase 12 L Urine Color Yellow Urine Clarity Turbid Urine pH 5.0 Ur Specific [place] 1.020 Urine Protein 30 H Urine Glucose (UA) Normal Urine Ketones Negative Urine Occult Blood 50 H Urine Nitrite Positive H Urine Bilirubin 1 H Urine Urobilinogen Normal Ur Leukocyte Esterase 500 H Urine RBC 5-10 SEEN Urine WBC >100 SEEN Ur Squamous Epith Cells 0 SEEN Other Crystals Amorphous Sediment 2+ URA Urine Bacteria 2+ Urine Mucus 0 SEEN Urine Yeast 2+ Radiography Diagnostic Testing: Clinical Impression(s) from Imaging Studies Chest X-Ray 03/08/24 10:13 IMPRESSION: Hyperinflation. No focal infiltrate is seen. Heterogeneous appearance of the bones as described. Electronically Signed: Sam Baeza MD at 11:12 EST , 1 view chest x-ray obtained interpreted by myself as no evidence of infiltrate or pneumothorax or acute disease process. Radiology in agreement. EKG Initial EKG: Attestation: I personally reviewed and interpreted this EKG as follows: Comments: Sinus tachycardia with ventricular rate of 112 bpm with no acute ST segment change Discharge Plan Triage Chief Complaint: Abn Labs ED Provider: Ilana Burch Dx/Rx/DC Orders Clinical Impression: COVID-19, Acute UTI, Dehydration, LULU (acute kidney injury), Leukocytosis Prescriptions: No Action ondansetron HCl 4 mg tablet 4 mg PO Q8H PRN (Reason: nausea) sennosides-docusate sodium [Senna with Docusate Sodium] 8.6-50 mg tablet 1 tab-cap PO QHS bisacodyl 10 mg suppository 10 mg IL ONCE PRN (Reason: constipation) aluminum-magnesium hydroxide 225-200 mg/5 mL suspension 30 ml PO PRN Culturelle 10 billion cell capsule 1 cap PO QDAY ascorbic acid (vitamin C) 500 mg capsule 500 mg PO DAILY acetaminophen 325 mg tablet,chewable 650 mg PO Q4-6H PRN (Reason: fever or pain) aspirin 81 MG tablet,chewable 81 mg PO DAILY@0800 Vitamin B-12 1,000 MCG/ML drops 1,000 mcg PO DAILY Multiple Vitamin, Womens 1 EACH tablet 1 ea PO DAILY Slow Release Iron 140 mg (45 mg iron) tablet extended release 140 mg PO DAILY metformin 1,000 mg tablet 1,000 mg PO BID oxycodone 5 mg Tablet 5 mg PO Q4H PRN (Reason: Pain Score 6-10) 4 Days Qty: 14 0RF acetaminophen 325 mg Tablet 650 mg PO Q6H PRN PRN (Reason: Pain 1-10 Or Fever>100.7) Qty: 0 0RF acetaminophen 650 mg suppository 650 mg IL Q4H PRN (Reason: fever or pain) glucagon HCl [Glucagon (HCl) Emergency Kit] 1 mg recon soln 1 mg IM Q20M PRN (Reason: hypoglycemia) Rx Instructions: until target blood sugar attained dextrose [Glucose Gel] 40 % gel 20 g PO Q15M PRN (Reason: hypoglycemia) Rx Instructions: until symptoms of low blood sugar are controlled guaifenesin [Adult Tussin Chest Congestion] 100 mg/5 mL liquid 200 mg PO Q4H PRN (Reason: congestion) melatonin 3 mg capsule 6 mg PO QHS PRN (Reason: sleep) magnesium hydroxide [Milk of Magnesia] 400 mg/5 mL suspension 30 ml PO DAILY PRN (Reason: constipation) nystatin 100,000 unit/mL Suspension 500,000 unit PO 4X/DAY 3 Days Qty: 60 0RF enalapril maleate 20 mg tablet 10 mg PO BIDCM 30 Days Qty: 0 0RF mirtazapine [Remeron] 15 mg tablet 7.5 mg PO QHS 30 Days Qty: 0 0RF pantoprazole [Protonix] 40 mg tablet,delayed release (DR/EC) 40 mg PO BID 30 Days Qty: 60 2RF Primary Care Provider: Emiliano Pelletier Referrals: Emiliano Pelletier DO [Primary Care Provider] - Print Language: [place] Disposition Disposition: Acute Care Hospital [facility]
[2024-03-08] MEDS: 0.9% Normal Saline (1000mL) 1,000 ML 1000 ML IV (10:28)
[2024-03-08 10:55] LABS: Absolute Lymphocyte Count 1.56 X10^3/uL (0.83-4.51); Absolute Neutrophil Count 20.7 X10^3/uL (2.0-7.7); Basophil# 0.04 X10^3/uL; Basophil% 0.2 % (0-1); Eosinophil# 0.13 X10^3/uL; Eosinophils% 0.5 % (0-5); Hematocrit 27.1 % (37-47); Hemoglobin 8.1 g/dL (12.0-15.0); Lymphocyte # 1.56 X10^3/ul (0.83-4.51); Lymphocyte % 6.6 % (19-41); Mean Corp Hgb Conc 29.9 g/dL (32-36); Mean Corpuscular Hgb 26.1 pg (27.0-32.0); Mean Corpuscular Volume 87.4 fL (81-99); Mean Platelet Vol. 9.9 fl (6.2-12.0); Monocyte# 0.98 X10^3/uL; Monocyte% 4.1 % (0-10); NRBC Flagged by Analyzer 0 % (0-5); Neutrophil # 20.65 X10^3/uL (2.7-7.7); POSITIVE DIFFERENTIAL YES; Platelet Count 701 K/mm3 (150-450); RBC Distribution Width CV 18.6 % (11.6-14.6); RBC Distribution Width SD 59.1 fl (35.1-43.9); White Blood Count 23.8 K/mm3 (4.4-11.0)
[2024-03-08 10:57] LABS: Differential Indicated SCAN CRITERIA MET
[2024-03-08] MEDS: Piperacil/Tazobactam 4.5 GM in 0.9% Normal Saline (100mL MB+) 100 ML IV (11:12)
[2024-03-08 11:13] LABS: ALB/GLOB Ratio 0.3 RATIO (0.9-2.4); AST(SGOT) 20 U/L (15-37); Alanine Aminotransfer ALT/SGPT 15 U/L (13-56); Albumin, Serum 1.9 g/dL (3.2-5.0); Alkaline Phosphatase 109 U/L (45-117); Anion Gap 7 (5-15); BUN 41 mg/dL (7-18); BUN/Creat Ratio 31.5 RATIO (10-20); Calcium,Total 9.8 mg/dL (8.5-10.1); Chloride 115 mmol/L (98-107); EST Glomerular Filtration Rate 42 mL/min (>60); Est Glom Filt Rate - Afr Amer 51 mL/min (>60); Estimated Creatinine Clearance 27.64 ml/min; Globulin 5.8 g/dL (2.2-4.2); Glucose 170 mg/dL (74-106); Lipase 12 U/L (13-75); Protein, Total 7.7 g/dL (6.4-8.2); Sodium Level 143 mmol/L (136-145); Troponin-I HS 17 pg/mL (3.0-54.0)
[2024-03-08] MEDS: Morphine 4 MG/ML Syringe IV (11:22)
[2024-03-08] MEDS: Ondansetron 4 MG/2 ML Vial IV (11:23)
[2024-03-08 11:26] LABS: Lactic Acid 1.6 mmol/L (0.4-1.9)
[2024-03-08 12:02] LABS: Mucous, Urine 0 SEEN /hpf (<or=2+); Squamous Epithelial Cells - UA 0 SEEN /hpf (5-10)
[2024-03-08 12:06] LABS: Color, Urine Yellow (Yellow); Glucose, Dipstick Normal (Normal); Ketone-Dipstick Negative (Negative); Leukocyte Esterase-Dipstick 500 /ul (Negative); Nitrite-Dipstick Positive (Negative); Occult Blood-Urine 50 /ul (Negative); Protein-Dipstick 30 mg/dl (Negative); Urine Clarity Turbid (Clear); Urine Urobilinogen Normal (Normal)
[2024-03-08 12:10] LABS: Urine Bilirubin Dipstick 1 mg/dL (Negative)
[2024-03-08 12:32] LABS: White Blood Cells >100 SEEN /hpf (0-5)
[2024-03-08 12:34] LABS: Bacteria 2+ /hpf (None Seen)
[2024-03-08 12:36] LABS: Yeast-Urine 2+ /hpf (None Seen)
[2024-03-08 12:39] LABS: Amorphous Sediment 2+ URA
[2024-03-08 12:40] LABS: Red Blood Cells-Urine 5-10 SEEN /hpf (0-5)
--- NOTE | 2024-03-08 12:59 | HP.PCM.HOS_ITS ---
HPI - General General Date of Admission: 03/08/24 Date of Service: 03/08/24 HPI Narrative CISCO CORTEZ, is a 78 F with a PMH as outlined including breast cancer with mets to the bone. She was brought in via the ED from [facility] with a complaint of abnormal labs. History was mainly taken from her son. She had apparently not been feeling well for several days prior to admission and she had lab work done yesterday at her facility which showed elevated white cell count. She had also been commenced on treatment for UTI and son states she had had 1 day of treatment. She denied any fever or chills, nausea vomiting or diarrhea. She had recently had surgery to help stabilise her spine due to breast cancer with mets to the spine at [facility]. Vitals in the ED were blood pressure 112/61, pulse rate of 120, respiratory to 14 and temperature of 97.6 Fahrenheit. She was saturating at 98% on room air. CBC showed hemoglobin of 8.1 with WBC of 23.8 and platelets of 71. Chemistry shows sodium of 143 with potassium of 4, bicarb of 21 and creatinine of 1.3 with baseline creatinine of 0.74. Urinalysis showed wbc of >100 and positive urine nitrite, as well as 2+ bacteria. Chest x-ray showed hyperinflation and no focal infiltrate. COVID test was positive. She has been admitted to be managed for debility and weakness due to UTI and COVID-19 infection. [facility] Medical History Pressure ulcer Hypernatremia Physical debility Psoriasis Diabetic peripheral neuropathy Dermatophytosis Macular degeneration Hypercholesteremia Anemia Metastatic bone tumor Metastatic disease Cancer related pain Hypertension Breast cancer Diabetes Home Medications ?Medication ?Instructions ?Recorded ?Last Taken ?Type aspirin 81 mg chewable tablet 81 mg PO DAILY@0800 prophylaxis 01/01/13 1 Day Ago History ~05/07/16 cyanocobalamin (vitamin B-12) 1,000 mcg PO DAILY vitamin 01/01/13 Unknown History 1,000 mcg/mL oral drops (Vitamin B-12) rvalimxesuae-Xs-ddpy-minerals 1 ea PO DAILY wound healing 09/23/17 Unknown History (Multiple Vitamin, Womens tablet) ferrous sulfate 140 mg (45 mg 140 mg PO DAILY SUPPLEMENT 12/14/23 Unknown History iron) tablet,extended release (Slow Release Iron) metformin 1,000 mg tablet 1,000 mg PO BID DM 12/14/23 Unknown History Lactobacillus rhamnosus GG 10 1 cap PO QDAY gut health 01/27/24 Unknown History billion cell capsule (Culturelle) acetaminophen 325 mg chewable 650 mg PO Q4-6H PRN fever or pain 01/27/24 Unknown History tablet aluminum-magnesium hydroxide 225 30 ml PO PRN GI Distress 01/27/24 Unknown History mg-200 mg/5 mL oral suspension ascorbic acid (vitamin C) 500 mg 500 mg PO DAILY wound care 01/27/24 Unknown History capsule bisacodyl 10 mg rectal suppository 10 mg MO ONCE PRN constipation 01/27/24 Unknown History ondansetron HCl 4 mg tablet 4 mg PO Q8H PRN nausea 01/27/24 Unknown History sennosides 8.6 mg-docusate sodium 1 tab-cap PO QHS constipation 01/27/24 Unknown History 50 mg tablet (Senna with Docusate Sodium) enalapril maleate 20 mg tablet 10 mg (1/2 x 20 mg) PO BIDCM BP 30 02/13/24 Unknown Rx days #0 tabs mirtazapine 15 mg tablet (Remeron) 7.5 mg (1/2 x 15 mg) PO QHS 30 02/13/24 Unknown Rx days #0 tabs nystatin 100,000 unit/mL oral 500,000 unit (5 mL) PO 4X/DAY 3 02/13/24 Unknown Rx suspension days #60 mL pantoprazole 40 mg tablet,delayed 40 mg PO BID 30 days #60 tabs 02/13/24 Unknown Rx release (Protonix) acetaminophen 325 mg tablet 650 mg (2 x 325 mg) PO Q6H PRN PRN 02/26/24 Unknown Rx Pain 1-10 Or Fever>100.7 #0 tabs oxycodone 5 mg tablet 5 mg PO Q4H PRN Pain Score 6-10 4 02/26/24 Unknown Rx days #14 tabs acetaminophen 650 mg rectal 650 mg MO Q4H PRN fever or pain 03/08/24 Unknown History suppository dextrose 40 % oral gel (Glucose 20 g PO Q15M PRN hypoglycemia 03/08/24 Unknown History Gel) glucagon HCl 1 mg solution for 1 mg IM Q20M PRN hypoglycemia 03/08/24 Unknown History injection (Glucagon (HCl) Emergency Kit) guaifenesin 100 mg/5 mL oral 200 mg PO Q4H PRN congestion 03/08/24 Unknown History liquid (Adult Tussin Chest Congestion) magnesium hydroxide 400 mg/5 mL 30 ml PO DAILY PRN constipation 03/08/24 Unknown History oral suspension (Milk of Magnesia) melatonin 3 mg capsule 6 mg PO QHS PRN sleep 03/08/24 Unknown History Allergy/AdvReac Type Severity Reaction Status Date / Time acetaminophen (From Vicodin) AdvReac Vomiting Verified 03/08/24 10:08 hydrocodone bitartrate (From AdvReac Vomiting Verified 03/08/24 10:08 Vicodin) Family History Mother Diabetes Father Hypertension Surgical History History of spinal surgery History of coronary artery bypass graft Social History household members: family housing: alf Smoking Status: Former smoker how long ago did patient quit smoking: Quit > 50 years prior. alcohol intake: never substance use type: does not use ROS Constitutional Constitutional: Reports anorexia, fatigue, malaise and weakness; Denies change in weight, chills or fever(s) Eyes Eyes: Denies change in vision ENT HEENT: Reports sore throat and other Details: sore throat and mouth due to severe oral thrush ; Denies dysphagia or headache(s) Cardiovascular Cardiovascular: Denies chest pain, edema, lightheadedness, orthopnea, palpitations, rapid heart rate or syncope Respiratory/Chest Respiratory/Chest: Denies cough, dyspnea, productive cough, shortness of breath at rest or shortness of breath with exertion Gastrointestinal Gastrointestinal: Denies abdominal pain, nausea or vomiting Genitourinary Genitourinary: Denies burning urination or hematuria Musculoskeletal Musculoskeletal: Denies arthralgias Neurologic Neurologic: Reports confusion; Denies dizziness, focal weakness, headache(s), numbness, seizure-like activity, seizures or syncope Psychiatric Psychiatric: Denies anxiety Hematologic/Lymphatic Hematologic/Lymphatic: Denies anemia Vital Signs Vital Signs Vital Signs: 03/08/24 10:01 03/08/24 10:04 03/08/24 10:05 Temperature 97.7 F L 97.7 F L Temperature Source Oral Oral Pulse Rate 105 H 105 H Respiratory Rate 16 16 Respiratory Effort Normal Respiratory Pattern Normal Blood Pressure 139/60 H 139/60 H Blood Pressure Mean 86 86 Pulse Ox 98 98 Oxygen Delivery Method Room Air Room Air 03/08/24 11:04 03/08/24 12:04 Temperature 97.6 F L 97.6 F L Temperature Source Oral Oral Pulse Rate 112 H 112 H Respiratory Rate 12 12 Respiratory Effort Respiratory Pattern Blood Pressure 111/64 111/64 Blood Pressure Mean 79 79 Pulse Ox Oxygen Delivery Method Room Air Room Air Weight Weight: 108 lb 3.951 oz Body Mass Index (BMI) 18.6 Physical Exam Const alert Constitutional Narrative: very frail and weak, cachectic HEENT normocephalic and head/scalp atraumatic HEENT Narrative: severe oral thrush Eyes PERRL, EOMs intact bilaterally and conjunctivae normal Neck no lymphadenopathy and supple Resp Resp Narrative: mildly diminished breath sounds bibasally, no wheezes or crackles. On room air Cardio regular rate, regular rhythm, S1 normal heart sound, S2 normal heart sound and no murmurs Extremity normal to inspection, full ROM and no clubbing, cyanosis or edema Neuro oriented x3, CN's II-XII intact bilaterally, moves all extremities and no focal motor deficits Psych Psych Narrative: very weak and frail. cachectic. Flat affect Results Lab / Micro Data 03/08/24 10:44 03/08/24 10:44 Labs: Laboratory Results - last 24 hr 03/08/24 10:44: WBC 23.8 H, RBC 3.10 L, Hgb 8.1 L, Hct 27.1 L, MCV 87.4, MCH 26.1 L, MCHC 29.9 L, RDW Std Deviation 59.1 H, RDW Coeff of Annika 18.6 H, Plt Count 701 H, MPV 9.9, Immature Gran % (Auto) 1.600 H, Neut % (Auto) 87.0 H, L ymph % (Auto) 6.6 L, Holt % (Auto) 4.1, Eos % (Auto) 0.5, Baso % (Auto) 0.2, A bsolute Neuts (auto) 20.7 H, Absolute Lymphs (auto) 1.56, Nucleated RBC % 0, Differential Comment COMMENT, Sodium 143, Potassium 4.0, Chloride 115 H, Carbon Dioxide 21.0, Anion Gap 7, BUN 41 H, Creatinine 1.30 H, Estim Creat Clear Calc 27.64, Est GFR (MDRD) Af Amer 51 L, Est GFR (MDRD) Non-Af 42 L, BUN/Creatinine Ratio 31.5 H, Glucose 170 H, Lactic Acid 1.6, Calcium 9.8, Total Bilirubin 0.30, AST 20, ALT 15, Alkaline Phosphatase 109, Troponin I High Sens 17, Total Protein 7.7, Albumin 1.9 L, Globulin 5.8 H, Albumin/Globulin Ratio 0.3 L, Lipase 12 L 03/08/24 11:50: Urine Color Yellow, Urine Clarity Turbid, Urine pH 5.0, Ur Specific [place] 1.020, Urine Protein 30 H, Urine Glucose (UA) Normal, Urine Ketones Negative, Urine Occult Blood 50 H, Urine Nitrite Positive H, Urine Bilirubin 1 H, Urine Urobilinogen Normal, Ur Leukocyte Esterase 500 H, Urine RBC 5-10 SEEN, Urine WBC >100 SEEN, Ur Squamous Epith Cells 0 SEEN, Other Crystals , Amorphous Sediment 2+ URA, Urine Bacteria 2+, Urine Mucus 0 SEEN, Urine Yeast 2+ Micro: Microbiology 03/08/24 10:25 Mucosa - Nose SARS-CoV-2, Influenza & RSV (PCR) - Final SARS-CoV-2 (COVID 19 PCR) Imaging Radiology Impression Chest X-Ray 03/08/24 10:13 IMPRESSION: Hyperinflation. No focal infiltrate is seen. Heterogeneous appearance of the bones as described. Electronically Signed: Sam Baeza MD at 11:12 EST , Assessment & Plan Assessment/Plan (1) LULU (acute kidney injury): (2) Dehydration: (3) Acute UTI: (4) COVID-19: (5) Adult failure to thrive: PLAN: Plan #UTI * Patient admitted with complaint of weakness. She had recently been diagnosed with UTI in a long-term facility and started on oral antibiotics. * Labs done showed elevated WBC of 23.8 so she was sent to the ED. * Urinalysis does show evidence of UTI with 2+ bacteria and more than 100 WBC. * Started on IV Zosyn. Get blood and urine cultures. * Hydrate gently with IV fluids normal saline at 75 cc/h. * #LULU * Baseline creatinine is around 0.74. Creatinine on admission is 1.3 submits criteria for LULU. * Likely prerenal due to decreased intake. Hydrate gently with IV fluids and trend. * #Failure to thrive with severe debility in the setting of metastatic breast cancer * Patient is very cachectic and frail. 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 * Patient has severe oropharyngeal thrush as well which limits her ability to eat. She was on oral nystatin swish and swallow but has not been very compliant with this. * PT OT on board. Fall precautions. Family counseled about patient's very frail status and the fact that she has stage IV cancer. * Family asking about feeding tube. I explained to them that in the setting of stage IV metastatic breast cancer, feeding tube may have limited utility. They are willing to reconsider the conversation at a later date. * On Remeron to help stimulate Appetite * Has had 5 rounds of chemotherapy. * #History of eosinophilic esophagitis and oral thrush with candidiasis * Had EGD recently on 01/22/2025 which showed findings consistent with eosinophilic esophagitis and she was treated with nystatin and fluconazole. * On a modified diet due to dysphagia. * #COVID-19 infection * On room air. Asymptomatic. Chest x-ray showed no acute cardiopulmonary process. * Will monitor. No need for remdesivir or steroids now she is on room air. * #Hypertension: On enalapril DVT prophylaxis: lovenox COde status: DNRCCA no intubation * Patient and her son as well as her daughter who is a POA who joined by phone where counseled extensively about different types of CODE STATUS including full code, DNR CCA and DNR CCA. * Patient clearly stated that she did not want CPR or intubation her children said she had said so during previous admissions as well. They were agreeable to CODE STATUS been made DNR CCA no intubation. * Total [id number] time 18 minutes. Charges/Coding Visit Charges Inpatient E&M: 28355 Init Hosp L3 Procedures Hospitalists Procedures: 21612 Advncd Care Plan 30 Min
--- NOTE | 2024-03-08 15:58 | WOUNDNOTE ---
wound photo: sacrum
--- NOTE | 2024-03-08 15:58 | WOUNDNOTE ---
wound photo: mid lower back
--- NOTE | 2024-03-08 15:59 | WOUNDNOTE ---
wound photo: mid upper back
[2024-03-08] MEDS: Glucerna Shake 120 ML LIQUID PO ×2 (16:14→22:12)
[2024-03-08] MEDS: 0.9% Normal Saline (1000mL) 1,000 ML 100 ML IV (16:14)
[2024-03-08] MEDS: NYSTATIN 500,000 UNIT/5 ML UDC 500000 UNIT PO ×2 (16:14→22:12)
[2024-03-08 17:53] LABS: M R Staph aureus DNA By PCR Negative (Negative); Staph aureus DNA By PCR NEGATIVE (Negative)
[2024-03-08] MEDS: Mirtazapine 15 MG Tablet 7.5 MG PO (22:11)
[2024-03-08] MEDS: Pantoprazole Sodium 40 MG Tablet PO (22:12)
[2024-03-08] MEDS: Piperacil/Tazobactam 3.375 GM in 0.9% Normal Saline (50mL MB+) 50 ML IV (22:12)
[2024-03-08] MEDS: Senna/Docusate Sodium 1 Tablet PO (22:12)
[2024-03-08] MEDS: DAKIN'S SOL HALF STRENGTH (=0.25%) TOPICAL (22:13)
[2024-03-09] VITALS (8 sets, daily range): BP systolic 108–132; BP diastolic 43–66; PULSE 109–120; RESP 15–18; TEMP 36.1–37.4; O2SAT 93–98
[2024-03-09] MEDS: 0.9% Normal Saline (1000mL) 1,000 ML 100 ML IV (04:57)
[2024-03-09] MEDS: Piperacil/Tazobactam 3.375 GM in 0.9% Normal Saline (50mL MB+) 50 ML IV ×3 (04:58→22:50)
[2024-03-09 07:52] LABS: Absolute Lymphocyte Count 1.36 X10^3/uL (0.83-4.51); Absolute Neutrophil Count 19.2 X10^3/uL (2.0-7.7); Basophil# 0.05 X10^3/uL; Basophil% 0.2 % (0-1); Eosinophil# 0.12 X10^3/uL; Eosinophils% 0.5 % (0-5); Hematocrit 24.9 % (37-47); Hemoglobin 7.2 g/dL (12.0-15.0); Lymphocyte # 1.36 X10^3/ul (0.83-4.51); Mean Corp Hgb Conc 28.9 g/dL (32-36); Mean Corpuscular Hgb 25.4 pg (27.0-32.0); Mean Corpuscular Volume 87.7 fL (81-99); Mean Platelet Vol. 9.8 fl (6.2-12.0); Monocyte# 1.36 X10^3/uL; NRBC Flagged by Analyzer 0 % (0-5); Neutrophil % 85.3 % (47-70); Platelet Count 644 K/mm3 (150-450); RBC Distribution Width CV 18.7 % (11.6-14.6); RBC Distribution Width SD 60.3 fl (35.1-43.9); Red Blood Count 2.84 M/mm3 (4.2-5.4); White Blood Count 22.6 K/mm3 (4.4-11.0)
[2024-03-09 08:15] LABS: Anion Gap 15 (5-15); BUN 43 mg/dL (7-18); BUN/Creat Ratio 30.7 RATIO (10-20); Calcium,Total 9.1 mg/dL (8.5-10.1); Chloride 118 mmol/L (98-107); EST Glomerular Filtration Rate 39 mL/min (>60); Est Glom Filt Rate - Afr Amer 47 mL/min (>60); Estimated Creatinine Clearance 23.84 ml/min; Glucose 152 mg/dL (74-106); Potassium 4.5 mmol/L (3.5-5.1); Sodium Level 149 mmol/L (136-145)
[2024-03-09] MEDS: Glucerna Shake 120 ML LIQUID PO (08:20)
[2024-03-09] MEDS: NYSTATIN 500,000 UNIT/5 ML UDC 500000 UNIT PO ×2 (08:21→14:12)
[2024-03-09] MEDS: Enoxaparin 30 MG/0.3 ML Syringe SC (08:21)
[2024-03-09] MEDS: Lactobacillis Acidophilus 1 CAP PO (08:21)
[2024-03-09] MEDS: Multivitamins,Therapeutic Tablet 1 TABLET PO (08:22)
[2024-03-09] MEDS: Aspirin 81 MG TAB.CHEW PO (08:22)
[2024-03-09] MEDS: Cyanocobalamin 500 MCG Tablet 1000 MCG PO (08:22)
[2024-03-09] MEDS: Pantoprazole Sodium 40 MG Tablet PO (08:22)
[2024-03-09] MEDS: Ascorbic Acid 500 MG Tablet PO (08:22)
[2024-03-09] MEDS: Ferrous Sulfate 325 MG Tablet PO (08:22)
[2024-03-09] MEDS: Dextrose 5%-Water (1000mL Bag) 1,000 ML 100 ML IV ×2 (08:57→22:41)
[2024-03-09] MEDS: DAKIN'S SOL HALF STRENGTH (=0.25%) TOPICAL ×2 (10:31→22:42)
--- NOTE | 2024-03-09 10:55 | CASEMGMT ---
Addendum entered by Steffi Brunner 03/11/24 12:11: Updates sent to [facility] with request to submit for precert. Asked for wknd phone/fax. Steffi Brunner DC Planning Asst. Addendum entered by Steffi Brunner 03/10/24 11:54: Pt will need new precert to return. SW updated. Steffi Brunner DC Planning Asst. Original Note: Pts daughter, Ellen, wishes for pt to return to [facility] at discharge. Updates sent to [facility] with note asking if pt was skilled. Awaiting response. SW updated. Steffi Brunner DC Planning Asst.
[2024-03-09] MEDS: Insulin Lispro 100 UNIT/ML INSULN.PEN SC ×3 (11:20→23:27)
[2024-03-09 11:41] LABS: Bedside Glucose 173 mg/dL (74-106)
--- NOTE | 2024-03-09 13:22 | PN_ITS ---
Subjective Subjective Patient seen and examined. She is alert but very weak and frail. Unable to do review of systems. She has remained hemodynamically stable. Sodium is up to 149. Objective Data Objective Data Vital Signs: Vital Signs Temp Pulse Resp BP Pulse Ox O2 Del Method 98.0 F 109 H 15 108/43 L 93 Room Air 03/09/24 08:26 03/09/24 08:26 03/09/24 08:26 03/09/24 08:26 03/09/24 08:26 03/09/24 10:00 Oxygen Delivery Method Room Air Weight: 100 lb 8.493 oz Body Mass Index (BMI) 17.2 Intake & Output: Intake and Output for Last 24 Hours 03/07/24 03/08/24 03/09/24 23:59 23:59 23:59 Intake Total 1220 / 1320 1745 / 1745 Output Total 150 / 150 Balance 1220 / 1320 1595 / 1595 Lab / Micro Data 03/09/24 07:33 03/09/24 07:33 Labs: Laboratory Results - last 24 hr 03/08/24 15:35: S.aureus Protein A PCR NEGATIVE, MRSA (PCR) Negative 03/09/24 07:33: WBC 22.6 H, RBC 2.84 L, Hgb 7.2 L, Hct 24.9 L, MCV 87.7, MCH 25.4 L, MCHC 28.9 L, RDW Std Deviation 60.3 H, RDW Coeff of Annika 18.7 H, Plt Count 644 H, MPV 9.8, Immature Gran % (Auto) 2.000 H, Neut % (Auto) 85.3 H, L ymph % (Auto) 6.0 L, [place] % (Auto) 6.0, Eos % (Auto) 0.5, Baso % (Auto) 0.2, A bsolute Neuts (auto) 19.2 H, Absolute Lymphs (auto) 1.36, Nucleated RBC % 0, S odium 149 H, Potassium 4.5, Chloride 118 H, Carbon Dioxide 16.0 L, Anion Gap 15, BUN 43 H, Creatinine 1.40 H, Estim Creat Clear Calc 23.84, Est GFR (MDRD) Af Amer 47 L, Est GFR (MDRD) Non-Af 39 L, BUN/Creatinine Ratio 30.7 H, Glucose 152 H, Calcium 9.1 03/09/24 11:16: POC Glucose 173 H Micro: Microbiology 03/08/24 15:35 Wound - Sacral Wound Culture - Preliminary Gram negative anh GNR Poss Pseudomonas sp GNR lactose manager legal 03/08/24 11:50 Urine Catheter - Catheter Urine Culture - Preliminary GNR Poss Pseudomonas sp 03/08/24 10:25 Mucosa - Nose SARS-CoV-2, Influenza & RSV (PCR) - Final SARS-CoV-2 (COVID 19 PCR) Physical Exam Const alert Constitutional Narrative: very frail and weak, cachectic, lethargic Orientation / Consciousness: lethargic HEENT normocephalic and head/scalp atraumatic Eyes PERRL, EOMs intact bilaterally and conjunctivae normal Neck no lymphadenopathy and supple Lymph Lymphatic: no lymphadenopathy noted Resp Resp Narrative: mildly diminished breath sounds bibasally, no wheezes or crackles. On room air Cardio regular rate, regular rhythm, S1 normal heart sound, S2 normal heart sound and no murmurs GI normal to inspection, nondistended, normoactive bowel sounds, soft to palpation, non-tender and non-distended Extremity normal to inspection, full ROM, normal capillary refill and no clubbing, cyanosis or edema General Extremity: no tenderness to palpation of joints or extremities Skin Skin Narrative: sacral decubitus ulcer, present on admission. Neuro oriented x3, CN's II-XII intact bilaterally, moves all extremities and no focal motor deficits Motor Exam: general weakness Psych Psych Narrative: very weak and frail. cachectic. Flat affect Assessment & Plan Assessment/Plan (1) LULU (acute kidney injury): (2) Dehydration: (3) Acute UTI: (4) COVID-19: (5) Adult failure to thrive: PLAN: Plan #UTI * Patient admitted with complaint of weakness. She had recently been diagnosed with UTI in a custodial facility and started on oral antibiotics. * Labs done showed elevated WBC of 23.8 so she was sent to the ED. * wbc is down to 22.6 today. * on IV zosyn * urine cultures growing GNR Possibly Pseudomonas species. * urine and blood cultures pending. * Urinalysis does show evidence of UTI with 2+ bacteria and more than 100 WBC. * Started on IV Zosyn. Get blood and urine cultures. * Hydrate gently with IV fluids normal saline at 75 cc/h. * #LULU * Baseline creatinine is around 0.74. Cr today is 1.4, was 1.3 on admission * Hydrate with IVF. Encourage oral hydration. * Likely prerenal due to decreased intake. Hydrate gently with IV fluids and trend. * #Failure to thrive with severe debility in the setting of metastatic breast cancer * Patient is very cachectic and frail. 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 * Patient has severe oropharyngeal thrush as well which limits her ability to eat. She was on oral nystatin swish and swallow but has not been very compliant with this. * PT OT on board. Fall precautions. Family counseled about patient's very frail status and the fact that she has stage IV cancer. * Family asking about feeding tube. I explained to them that in the setting of stage IV metastatic breast cancer, feeding tube may have limited utility. They are willing to reconsider the conversation at a later date. * On Remeron to help stimulate Appetite * Has had 5 rounds of chemotherapy. * #Hypernatremia: Sodium is 149 today. WIll dc IV normal saline and start on D5W 125cc/hr #Sacral decubitus ulcer * present on admission. * Wound cultures growing gram negative anh, GNR Poss Pseudomonas sp and GNR lactose manager legal * on IV zosyn. * wound care on board. * #History of eosinophilic esophagitis and oral thrush with candidiasis * Had EGD recently on 01/22/2025 which showed findings consistent with eosinophilic esophagitis and she was treated with nystatin and fluconazole. * On a modified diet due to dysphagia. * #Non anion gap metabolic acidosis * bicarb is 16. Anion gap is 15. Likely due to LULU and decreased oral intake. * on remeron to help with oral intake * #COVID-19 infection * On room air. Asymptomatic. Chest x-ray showed no acute cardiopulmonary process. * Will monitor. No need for remdesivir or steroids now she is on room air. * #Hypertension: On enalapril. Hold enalapril due to LULU DVT prophylaxis: lovenox COde status: DNRCCA no intubation * * Prognosis: very poor in light of advanced stage IV terminal breast cancer. Charges/Coding Visit Charges Inpatient E&M: 58059 Subs Hosp L3
--- NOTE | 2024-03-09 18:00 | NURSING ---
Patients son called out at 17:30 stating that the patient had reported that she was in pain. I went to assess the patients pain and she reported to me that her pain was a 10 on a scale of 1 to 10. The patient also reported that she wanted to get back in bed. The patients son left shortly after. I pulled the morphine from the [facility], and got another RN to help me put the patient back to bed. When getting ready to put the patient back to bed, the patient refused and began to speak to the nurses in an angry tone. The patient was educated on the importance of getting back to bed to receive the morphine for safety purposes. She stated she didn't want the pain medication, so the pain medication was returned to the [facility].
[2024-03-09 18:10] LABS: Bedside Glucose 231 mg/dL (74-106)
--- NOTE | 2024-03-09 19:26 | NURSING ---
Reviewed and agreed on charting with Kiki Lucia RN
--- NOTE | 2024-03-09 23:08 | NURSING ---
This RN called son, Sal, for an update about pt's current status.
[2024-03-09 23:58] LABS: Bedside Glucose 246 mg/dL (74-106)
[2024-03-10] VITALS (10 sets, daily range): BP systolic 100–144; BP diastolic 46–71; PULSE 102–110; RESP 15–18; TEMP 36.2–37; O2SAT 92–100
[2024-03-10] MEDS: NYSTATIN 500,000 UNIT/5 ML UDC 500000 UNIT PO ×5 (00:55→21:46)
[2024-03-10] MEDS: Piperacil/Tazobactam 3.375 GM in 0.9% Normal Saline (50mL MB+) 50 ML IV ×3 (05:24→21:46)
[2024-03-10] MEDS: Insulin Lispro 100 UNIT/ML INSULN.PEN SC ×3 (05:27→17:51)
[2024-03-10 06:33] LABS: Bedside Glucose 237 mg/dL (74-106)
[2024-03-10 06:45] LABS: Absolute Lymphocyte Count 1.44 X10^3/uL (0.83-4.51); Basophil# 0.02 X10^3/uL; Basophil% 0.1 % (0-1); Eosinophil# 0.17 X10^3/uL; Eosinophils% 0.8 % (0-5); Hematocrit 17.1 % (37-47); Lymphocyte # 1.44 X10^3/ul (0.83-4.51); Lymphocyte % 6.6 % (19-41); Mean Corp Hgb Conc 29.8 g/dL (32-36); Mean Corpuscular Hgb 25.6 pg (27.0-32.0); Mean Corpuscular Volume 85.9 fL (81-99); Mean Platelet Vol. 9.7 fl (6.2-12.0); Monocyte# 1.01 X10^3/uL; Monocyte% 4.6 % (0-10); NRBC Flagged by Analyzer 0 % (0-5); Neutrophil % 86.6 % (47-70); POSITIVE COUNT YES; Platelet Count 621 K/mm3 (150-450); RBC Distribution Width CV 18.8 % (11.6-14.6); RBC Distribution Width SD 59.3 fl (35.1-43.9); Red Blood Count 1.99 M/mm3 (4.2-5.4); White Blood Count 21.9 K/mm3 (4.4-11.0)
[2024-03-10 06:49] LABS: Differential Indicated SCAN CRITERIA MET; Hemoglobin 5.1 g/dL (12.0-15.0)
[2024-03-10 07:06] LABS: Anion Gap 8 (5-15); BUN 43 mg/dL (7-18); BUN/Creat Ratio 25.1 RATIO (10-20); Calcium,Total 8.6 mg/dL (8.5-10.1); Chloride 115 mmol/L (98-107); Creatinine, Serum 1.71 mg/dL (0.55-1.02); EST Glomerular Filtration Rate 31 mL/min (>60); Est Glom Filt Rate - Afr Amer 37 mL/min (>60); Estimated Creatinine Clearance 19.52 ml/min; Glucose 272 mg/dL (74-106); Potassium 3.8 mmol/L (3.5-5.1); Sodium Level 141 mmol/L (136-145)
[2024-03-10 08:01] LABS: Anisocytosis 2+; Hypochromasia 2+; Platelet Estimate MKD INC (ADEQ)
[2024-03-10] MEDS: Mirtazapine 15 MG Tablet 7.5 MG PO (08:51)
[2024-03-10] MEDS: Ferrous Sulfate 325 MG Tablet PO (08:52)
[2024-03-10] MEDS: Multivitamins,Therapeutic Tablet 1 TABLET PO (08:52)
[2024-03-10] MEDS: Cyanocobalamin 500 MCG Tablet 1000 MCG PO (08:52)
[2024-03-10] MEDS: Ascorbic Acid 500 MG Tablet PO (08:52)
[2024-03-10] MEDS: Pantoprazole Sodium 40 MG Tablet PO ×2 (08:52→21:50)
[2024-03-10] MEDS: Aspirin 81 MG TAB.CHEW PO (08:52)
[2024-03-10] MEDS: Lactobacillis Acidophilus 1 CAP PO (08:52)
[2024-03-10] MEDS: Lisinopril 10 MG Tablet PO (08:56)
[2024-03-10] MEDS: Enoxaparin 30 MG/0.3 ML Syringe SC (08:59)
[2024-03-10] MEDS: DAKIN'S SOL HALF STRENGTH (=0.25%) TOPICAL ×2 (10:44→21:57)
[2024-03-10] MEDS: oxyCODONE 5 MG Tablet PO (11:14)
--- NOTE | 2024-03-10 12:26 | NURSING ---
Nurse, physician, patients son and daughter discussed plan of care. Hospice vs aggressive treatment with central line placement, blood transfusions, and GI consult. Family wants to talk with patient and will let nursing staff know today.
--- NOTE | 2024-03-10 14:38 | PN_ITS ---
Subjective Subjective Patient seen and examined. She remains very frail and weak. She denied any chest pain, palpitations, dizziness, nausea, vomiting or any other symptoms. Review of systems is otherwise negative. Hemoglobin has down to 5.1 today. Have not seen any blood in her stool and denies any bleeding from the sacral decubitus ulcer. She apparently had a bit of bleeding from the oral thrush yesterday does not seem it was enough to cause a 2 point drop in her hemoglobin. her Cr is also up to 1.71. Objective Data Objective Data Vital Signs: Vital Signs Temp Pulse Resp BP Pulse Ox O2 Del Method 98.3 F 102 H 15 130/64 H 93 Room Air 03/10/24 10:55 03/10/24 10:55 03/10/24 10:55 03/10/24 10:55 03/10/24 10:55 03/10/24 10:55 Oxygen Delivery Method Room Air Weight: 100 lb 8.493 oz Body Mass Index (BMI) 17.2 Intake & Output: Intake and Output for Last 24 Hours 03/08/24 03/09/24 03/10/24 23:59 23:59 23:59 Intake Total 1220 / 1320 2795 / 2795 1100 / 1100 Output Total 150 / 150 690 / 690 Balance 1220 / 1320 2645 / 2645 410 / 410 Lab / Micro Data 03/10/24 06:25 03/10/24 06:25 Labs: Laboratory Results - last 24 hr 03/09/24 17:43: POC Glucose 231 H 03/09/24 23:25: POC Glucose 246 H 03/10/24 05:26: POC Glucose 237 H 03/10/24 06:25: WBC 21.9 H, RBC 1.99 L, Hgb 5.1 L*, Hct 17.1 L, MCV 85.9, MCH 25.6 L, MCHC 29.8 L, RDW Std Deviation 59.3 H, RDW Coeff of Annika 18.8 H, Plt Count 621 H, MPV 9.7, Immature Gran % (Auto) 1.300 H, Neut % (Auto) 86.6 H, L ymph % (Auto) 6.6 L, [place] % (Auto) 4.6, Eos % (Auto) 0.8, Baso % (Auto) 0.1, A bsolute Neuts (auto) 19.0 H, Absolute Lymphs (auto) 1.44, Nucleated RBC % 0, Diff Path Review June foll, Platelet Estimate MKD INC, Hypochromasia 2+, Anisocytosis 2+, Sodium 141, Potassium 3.8, Chloride 115 H, Carbon Dioxide 19.0 L, Anion Gap 8, BUN 43 H, Creatinine 1.71 H, Estim Creat Clear Calc 19.52, Est GFR (MDRD) Af Amer 37 L, Est GFR (MDRD) Non-Af 31 L, BUN/Creatinine Ratio 25.1 H , Glucose 272 H, Calcium 8.6 Micro: Microbiology 03/08/24 10:44 Blood Culture (Wb) - Right Wrist Blood Culture - Preliminary No growth in 48 hours. 03/08/24 10:44 Blood Culture (Wb) - Other Blood Culture - Preliminary No growth in 48 hours. 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 GPC Poss Enterococcus sp 03/08/24 11:50 Urine Catheter - Catheter Urine Culture - Preliminary Pseudomonas aeruginosa Staphylococcus species 03/08/24 10:25 Mucosa - Nose SARS-CoV-2, Influenza & RSV (PCR) - Final SARS-CoV-2 (COVID 19 PCR) Physical Exam Const alert Constitutional Narrative: very frail and weak, cachectic, lethargic Orientation / Consciousness: lethargic HEENT normocephalic and head/scalp atraumatic Eyes PERRL, EOMs intact bilaterally and conjunctivae normal Neck no lymphadenopathy and supple Lymph Lymphatic: no lymphadenopathy noted Resp Resp Narrative: mildly diminished breath sounds bibasally, no wheezes or crackles. On room air Cardio regular rate, regular rhythm, S1 normal heart sound, S2 normal heart sound and no murmurs GI normal to inspection, nondistended, normoactive bowel sounds, soft to palpation, non-tender and non-distended Extremity normal to inspection, full ROM, normal capillary refill and no clubbing, cyanosis or edema General Extremity: no tenderness to palpation of joints or extremities Skin Skin Narrative: sacral decubitus ulcer, present on admission. Neuro oriented x3, CN's II-XII intact bilaterally, moves all extremities and no focal motor deficits Motor Exam: general weakness Psych Psych Narrative: very weak and frail. cachectic. Flat affect Assessment & Plan Assessment/Plan (1) LULU (acute kidney injury): (2) Dehydration: (3) Acute UTI: (4) COVID-19: (5) Adult failure to thrive: PLAN: Plan #UTI * Patient admitted with complaint of weakness. She had recently been diagnosed with UTI in a long term facility and started on oral antibiotics. * Labs done showed elevated WBC of 23.8 so she was sent to the ED. * wbc is slightly down to 21 today * continue IV zosyn * urine cultures growing Pseudomonas and staph species. Blood culture showed no growth so far * #Acute on chronic anemia * Hemoglobin today is down to 5.1. Was 1.2 yesterday. No clear evidence of bleeding. She did have EGD in January 2024 which showed evidence of eosinophilic esophagitis. * Will transfuse with 2 units of packed red blood cell. Patient is a very hard stick so unable to even get a peripheral access so we will place a PICC line. * Gastroenterology consulted. * Trend hemoglobin. * She has had recurrent acute on chronic anemia requiring blood transfusions. This likely related to her advanced cancer and the eosinophilic esophagitis. * #LULU * Baseline creatinine is around 0.74. Creatinine today is further up to 1.7. * Hydrate with IVF. Encourage oral hydration. * Quispe catheter also inserted as patient has not urinated much today. Continue hydration with IV fluids. * * #Failure to thrive with severe debility in the setting of metastatic breast cancer * Patient is very cachectic and frail. 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 * Patient has severe oropharyngeal thrush as well which limits her ability to eat. She was on oral nystatin swish and swallow but has not been very compliant with this. * PT OT on board. * On Remeron to help stimulate Appetite * Has had 5 rounds of chemotherapy. * #Hypernatremia: Resolved. Sodium is down to 141. #Sacral decubitus ulcer * present on admission. 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 * wound care on board. * #History of eosinophilic esophagitis and oral thrush with candidiasis * Had EGD recently on 01/22/2025 which showed findings consistent with eosinophilic esophagitis and she was treated with nystatin and fluconazole. * On a modified diet due to dysphagia. * #Non anion gap metabolic acidosis * bicarb is 16. Anion gap is 15. Likely due to LULU and decreased oral intake. * on remeron to help with oral intake * #COVID-19 infection * On room air. Asymptomatic. Chest x-ray showed no acute cardiopulmonary process. * Will monitor. No need for remdesivir or steroids now she is on room air. * #Hypertension: On enalapril. Hold enalapril due to LULU DVT prophylaxis: lovenox COde status: DNRCCA no intubation * * Prognosis: very poor in light of advanced stage IV terminal breast cancer. I had a very extensive discussion with the patient's son and daughter today. Present with her nurses Alberta and Lyndsey. I counseled them that patient had end-stage stage IV metastatic cancer with spread to the liver and the spine. I counseled them that this treatment at this time most likely to be palliative not curative. She had had several sessions of palliative radiation already 10/06/2023. Her son and daughter says she had not had any follow-up with oncology because she had been in the hospital multiple times and so had missed 2 appointments. I explained to them that patient was likely to be in and out of the hospital due to her very frail and debilitated status and in light of the metastatic breast cancer. I counseled them that hospice may be a good option for patient and I had spoken to the patient about hospice this morning. She had wanted me to talk to her son and daughter and for them to make a collective decision. Patient's daughter seemed amenable to the idea of hospice but her son did not seem to fully grasp the enormity of the situation and kept saying that he believed and his isabel and was expecting a miracle. He said when they had time for the mother and sat with her and she was able to eat and looked better. I explained to him that the head decline may not necessarily be a linear process and having episodes where she was able to eat much better did not obviate the fact that she did have stage IV metastatic lung cancer. Son and daughter want to discuss among themselves some more before they decide on whether to opt for hospice or to continue treatment. I explained to them that another scenario were due to bound to continue treatment is DNR CCA. Patient will therefore be transfused 2 units of packed red blood cells and will order a PICC line as she is a very difficult stick. Gastroenterology was consulted. Total time spent on goals of care and advance care discussion: 30 minutes Charges/Coding Visit Charges Inpatient E&M: 31962 Subs Hosp L3 Procedures Hospitalists Procedures: 55327 Advncd Care Plan 30 Min
[2024-03-10 14:41] LABS: Bedside Glucose 202 mg/dL (74-106)
[2024-03-10] MEDS: 0.9% Normal Saline (1000mL) 1,000 ML 125 ML IV (16:08)
[2024-03-10 18:19] LABS: Bedside Glucose 164 mg/dL (74-106)
[2024-03-10] MEDS: Senna/Docusate Sodium 1 Tablet PO (21:50)
[2024-03-11] VITALS (9 sets, daily range): BP systolic 107–141; BP diastolic 50–76; PULSE 84–109; RESP 18; TEMP 36–37.2; O2SAT 99–100
[2024-03-11 00:09] LABS: Bedside Glucose 134 mg/dL (74-106)
[2024-03-11] MEDS: 0.9% Normal Saline (1000mL) 1,000 ML 125 ML IV (03:06)
[2024-03-11 03:28] LABS: Absolute Lymphocyte Count 0.96 X10^3/uL (0.83-4.51); Absolute Neutrophil Count 14.7 X10^3/uL (2.0-7.7); Basophil# 0.04 X10^3/uL; Basophil% 0.2 % (0-1); Eosinophil# 0.17 X10^3/uL; Hematocrit 28.8 % (37-47); Hemoglobin 9.2 g/dL (12.0-15.0); Lymphocyte # 0.96 X10^3/ul (0.83-4.51); Lymphocyte % 5.5 % (19-41); Mean Corp Hgb Conc 31.9 g/dL (32-36); Mean Corpuscular Volume 81.4 fL (81-99); Mean Platelet Vol. 9.6 fl (6.2-12.0); Monocyte# 1.18 X10^3/uL; Monocyte% 6.8 % (0-10); NRBC Flagged by Analyzer 0 % (0-5); Neutrophil # 14.69 X10^3/uL (2.7-7.7); Neutrophil % 84.8 % (47-70); Platelet Count 449 K/mm3 (150-450); RBC Distribution Width CV 18.9 % (11.6-14.6); RBC Distribution Width SD 56.1 fl (35.1-43.9); Red Blood Count 3.54 M/mm3 (4.2-5.4); White Blood Count 17.3 K/mm3 (4.4-11.0)
[2024-03-11 03:45] LABS: Anion Gap 9 (5-15); BUN 41 mg/dL (7-18); BUN/Creat Ratio 26.5 RATIO (10-20); Calcium,Total 8.2 mg/dL (8.5-10.1); Chloride 118 mmol/L (98-107); Creatinine, Serum 1.55 mg/dL (0.55-1.02); EST Glomerular Filtration Rate 34 mL/min (>60); Est Glom Filt Rate - Afr Amer 42 mL/min (>60); Estimated Creatinine Clearance 21.53 ml/min; Glucose 147 mg/dL (74-106); Potassium 3.4 mmol/L (3.5-5.1); Sodium Level 145 mmol/L (136-145)
[2024-03-11] MEDS: Piperacil/Tazobactam 3.375 GM in 0.9% Normal Saline (50mL MB+) 50 ML IV ×3 (05:30→20:48)
[2024-03-11 05:56] LABS: Bedside Glucose 120 mg/dL (74-106)
[2024-03-11] MEDS: DAKIN'S SOL HALF STRENGTH (=0.25%) TOPICAL ×2 (07:54→20:47)
[2024-03-11] MEDS: Potassium Chloride Oral Tablet 20 MEQ 40 MEQ PO (10:09)
[2024-03-11] MEDS: Ferrous Sulfate 325 MG Tablet PO (10:10)
[2024-03-11] MEDS: NYSTATIN 500,000 UNIT/5 ML UDC 500000 UNIT PO ×4 (10:10→20:47)
[2024-03-11] MEDS: Pantoprazole Sodium 40 MG Tablet PO ×2 (10:10→20:48)
[2024-03-11] MEDS: Aspirin 81 MG TAB.CHEW PO (10:10)
[2024-03-11] MEDS: Lisinopril 10 MG Tablet PO ×2 (10:10→17:33)
--- NOTE | 2024-03-11 12:14 | PN_ITS ---
Subjective Subjective Patient seen and examined. She was alert but remains very frail and weak. She had no active complaints. She is on room air. Review of systems is otherwise negative. Objective Data Objective Data Vital Signs: Vital Signs Temp Pulse Resp BP Pulse Ox O2 Del Method 97.5 F L 84 18 141/76 H 100 Room Air 03/11/24 09:05 03/11/24 09:05 03/11/24 09:05 03/11/24 09:05 03/11/24 09:05 03/11/24 10:00 Oxygen Delivery Method Room Air Weight: 100 lb 8.493 oz Body Mass Index (BMI) 17.2 Intake & Output: Intake and Output for Last 24 Hours 03/09/24 03/10/24 03/11/24 23:59 23:59 23:59 Intake Total 2795 / 2795 2389.5 / 2389.5 692.5 / 692.5 Output Total 150 / 150 940 / 940 Balance 2645 / 2645 1449.5 / 1449.5 692.5 / 692.5 Lab / Micro Data 03/11/24 03:00 03/11/24 03:00 Labs: Laboratory Results - last 24 hr 03/10/24 13:56: POC Glucose 202 H 03/10/24 16:41: Blood Type O POSITIVE, Antibody Screen NEGATIVE, Crossmatch See Detail 03/10/24 17:50: POC Glucose 164 H 03/10/24 23:34: POC Glucose 134 H 03/11/24 03:00: WBC 17.3 H, RBC 3.54 L, Hgb 9.2 L, Hct 28.8 L, MCV 81.4 D, MCH 26.0 L, MCHC 31.9 L D, RDW Std Deviation 56.1 H, RDW Coeff of Annika 18.9 H, Plt Count 449, MPV 9.6, Immature Gran % (Auto) 1.700 H, Neut % (Auto) 84.8 H, Lymph % (Auto) 5.5 L, [place] % (Auto) 6.8, Eos % (Auto) 1.0, Baso % (Auto) 0.2, Absolute Neuts (auto) 14.7 H, Absolute Lymphs (auto) 0.96, Nucleated RBC % 0, Sodium 145, Potassium 3.4 L, Chloride 118 H, Carbon Dioxide 17.0 L, Anion Gap 9, BUN 41 H, C reatinine 1.55 H, Estim Creat Clear Calc 21.53, Est GFR (MDRD) Af Amer 42 L, Est GFR (MDRD) Non-Af 34 L, BUN/Creatinine Ratio 26.5 H, Glucose 147 H, Calcium 8.2 L 03/11/24 05:27: POC Glucose 120 H Micro: Microbiology 03/08/24 15:35 Wound - Sacral Gram Stain - Final 03/08/24 15:35 Wound - Sacral Wound Culture - Final Proteus mirabilis Pseudomonas aeruginosa Enterobacter cloacae complex Enterococcus faecalis 03/08/24 11:50 Urine Catheter - Catheter Urine Culture - Final Pseudomonas aeruginosa Enterococcus faecalis 03/08/24 10:44 Blood Culture (Wb) - Right Wrist Blood Culture - Preliminary No growth in 48 hours. 03/08/24 10:44 Blood Culture (Wb) - Other Blood Culture - Preliminary No growth in 48 hours. 03/08/24 10:25 Mucosa - Nose SARS-CoV-2, Influenza & RSV (PCR) - Final SARS-CoV-2 (COVID 19 PCR) Physical Exam Const alert and oriented x3 Constitutional Narrative: very frail and weak, cachectic, General Appearance: cooperative HEENT normocephalic and head/scalp atraumatic Eyes PERRL, EOMs intact bilaterally and conjunctivae normal Neck no lymphadenopathy and supple Lymph Lymphatic: no lymphadenopathy noted Resp Resp Narrative: mildly diminished breath sounds bibasally, no wheezes or crackles. On room air Cardio regular rate, regular rhythm, S1 normal heart sound, S2 normal heart sound and no murmurs GI normal to inspection, nondistended, normoactive bowel sounds, soft to palpation, non-tender and non-distended Extremity normal to inspection, full ROM, normal capillary refill and no clubbing, cyanosis or edema General Extremity: no tenderness to palpation of joints or extremities Skin Skin Narrative: sacral decubitus ulcer, present on admission. Neuro oriented x3, CN's II-XII intact bilaterally, moves all extremities and no focal motor deficits Motor Exam: general weakness Psych Psych Narrative: very weak and frail. cachectic. Flat affect Mood & Affect: flat affect Assessment & Plan Assessment/Plan (1) LULU (acute kidney injury): (2) Dehydration: (3) Acute UTI: (4) COVID-19: (5) Adult failure to thrive: PLAN: Plan #UTI * Patient admitted with complaint of weakness. She had recently been diagnosed with UTI in a [facility] facility and started on oral antibiotics. * Labs done showed elevated WBC of 23.8 so she was sent to the ED. * wbc is further down to 17.3 today. * continue IV zosyn * urine cultures growing Pseudomonas and staph species. * Blood culture showed no growth so far * #Acute on chronic anemia * s/p transfusion of 2 units of PRBCs. * Hb was 5.1 yesterday. Is 9.2 toay * GI consulted; await rec;s * she did have EGD on 02/12/2024 which showed eosinophilic esophagitis. * * #LULU * Baseline creatinine is around 0.74. Cr is slightly down to 1.55 from 1.71 yesterday. * Hydrate with IVF. Encourage oral hydration. * Quispe catheter also inserted to monitor urine output * * #Failure to thrive with severe debility in the setting of metastatic breast cancer * Patient is very cachectic and frail. 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 * Patient has severe oropharyngeal thrush as well which limits her ability to eat. She was on oral nystatin swish and swallow but has not been very compliant with this. * PT OT on board. * On Remeron to help stimulate Appetite * Has had 5 rounds of chemotherapy. * #Hypernatremia: Resolved. . #Hypokalemia: Potassium is 3.4. Replace and trend. #Sacral decubitus ulcer * present on admission. * Wound cultures growing gram negative anh, GNR Poss Pseudomonas sp and GNR lactose drafter detail * on IV zosyn. * wound care on board. * #History of eosinophilic esophagitis and oral thrush with candidiasis * Had EGD recently on 01/22/2025 which showed findings consistent with eosinophilic esophagitis and she was treated with nystatin and fluconazole. * On a modified diet due to dysphagia. * #Non anion gap metabolic acidosis * bicarb is 17. Anion gap is 9 today. Likely due to LULU and decreased oral intake. * Able to tell. If he worsens could suggest that. Oral bicarb. * #COVID-19 infection * On room air. Asymptomatic. Chest x-ray showed no acute cardiopulmonary process. * Will monitor. No need for remdesivir or steroids now she is on room air. * #Hypertension: On enalapril. Hold enalapril due to LULU DVT prophylaxis: SCDs. lovenox dc'd due to acute on chronic anemia COde status: DNRCCA no intubation * * Prognosis: very poor in light of advanced stage IV terminal breast cancer. Family counseled extensively about prognosis and goals of care. Daughter seemed to be amenable to hospice but his son appeared to be unrealistic in the suspect patient's and thinks the patient is going to recover from her cancer. We are still awaiting feedback from the family about their decision with respect to whether they want to opt for hospice or not. In the interim patient remains DNR CCA no intubation. Charges/Coding Visit Charges Inpatient E&M: 73699 Subs Hosp L2
[2024-03-11] MEDS: Insulin Lispro 100 UNIT/ML INSULN.PEN SC ×2 (12:44→17:39)
[2024-03-11 13:07] LABS: Bedside Glucose 163 mg/dL (74-106)
[2024-03-11 14:26] LABS: Pathologist Review Reviewed
[2024-03-11] MEDS: Acetaminophen 325 MG Tablet 650 MG PO (15:19)
[2024-03-11] MEDS: oxyCODONE 5 MG Tablet PO (15:20)
[2024-03-11 18:07] LABS: Bedside Glucose 181 mg/dL (74-106)
[2024-03-11] MEDS: 0.9% Saline Lock 10 ML Syringe IV (20:46)
[2024-03-11] MEDS: Mirtazapine 15 MG Tablet 7.5 MG PO (20:47)
[2024-03-11] MEDS: Senna/Docusate Sodium 1 Tablet PO (20:48)
[2024-03-12 00:26] LABS: Bedside Glucose 144 mg/dL (74-106)
[2024-03-12 03:00] VITALS: BP 123/80; PULSE 99; RESP 16; TEMP 36.3; O2SAT 99
[2024-03-12] MEDS: 0.9% Saline Lock 10 ML Syringe IV ×2 (04:03→20:02)
[2024-03-12] MEDS: Morphine 2 MG/ML Syringe IV (04:03)
[2024-03-12] MEDS: Piperacil/Tazobactam 3.375 GM in 0.9% Normal Saline (50mL MB+) 50 ML IV (05:35)
[2024-03-12 06:00] LABS: Bedside Glucose 125 mg/dL (74-106)
[2024-03-12 07:18] LABS: Absolute Lymphocyte Count 1.07 X10^3/uL (0.83-4.51); Absolute Neutrophil Count 15.5 X10^3/uL (2.0-7.7); Basophil# 0.05 X10^3/uL; Basophil% 0.3 % (0-1); Eosinophil# 0.32 X10^3/uL; Eosinophils% 1.7 % (0-5); Hematocrit 29.9 % (37-47); Hemoglobin 9.3 g/dL (12.0-15.0); Lymphocyte # 1.07 X10^3/ul (0.83-4.51); Lymphocyte % 5.9 % (19-41); Mean Corp Hgb Conc 31.1 g/dL (32-36); Mean Corpuscular Hgb 25.3 pg (27.0-32.0); Mean Corpuscular Volume 81.3 fL (81-99); Mean Platelet Vol. 9.6 fl (6.2-12.0); Monocyte# 1.01 X10^3/uL; Monocyte% 5.5 % (0-10); NRBC Flagged by Analyzer 0 % (0-5); Neutrophil # 15.49 X10^3/uL (2.7-7.7); Neutrophil % 84.7 % (47-70); POSITIVE MORPHOLOGY YES; Platelet Count 468 K/mm3 (150-450); RBC Distribution Width CV 21.1 % (11.6-14.6); RBC Distribution Width SD 61.5 fl (35.1-43.9); Red Blood Count 3.68 M/mm3 (4.2-5.4); White Blood Count 18.3 K/mm3 (4.4-11.0)
[2024-03-12 07:28] LABS: Differential Indicated SCAN CRITERIA MET
[2024-03-12 08:43] VITALS: BP 157/78; PULSE 101; RESP 12; TEMP 36.4; O2SAT 100
[2024-03-12] MEDS: Ascorbic Acid 500 MG Tablet PO (08:45)
[2024-03-12] MEDS: NYSTATIN 500,000 UNIT/5 ML UDC 500000 UNIT PO ×4 (08:45→23:10)
[2024-03-12] MEDS: Aspirin 81 MG TAB.CHEW PO (08:45)
[2024-03-12] MEDS: Lisinopril 10 MG Tablet PO ×2 (08:45→16:45)
[2024-03-12] MEDS: Multivitamins,Therapeutic Tablet 1 TABLET PO (08:45)
[2024-03-12] MEDS: Lactobacillis Acidophilus 1 CAP PO (08:45)
[2024-03-12 08:54] LABS: Differential Comment SCANNED; Platelet Estimate SLT INC (ADEQ)
[2024-03-12 08:55] LABS: Anisocytosis 2+; Microcytosis 1+; Ovalocyte 1+; Schistocytes RARE
[2024-03-12] MEDS: Acetaminophen 325 MG Tablet 650 MG PO (09:06)
[2024-03-12 09:52] LABS: Anion Gap 9 (5-15); BUN 40 mg/dL (7-18); BUN/Creat Ratio 24.7 RATIO (10-20); Calcium,Total 8.4 mg/dL (8.5-10.1); Chloride 124 mmol/L (98-107); Creatinine, Serum 1.62 mg/dL (0.55-1.02); EST Glomerular Filtration Rate 33 mL/min (>60); Est Glom Filt Rate - Afr Amer 40 mL/min (>60); Glucose 136 mg/dL (74-106); Potassium 3.7 mmol/L (3.5-5.1); Sodium Level 147 mmol/L (136-145)
--- NOTE | 2024-03-12 12:18 | PN_ITS ---
Subjective Subjective Patient seen and examined. She was alert but lethargic and frail. She did not have any active complaints overnight. Review of symptoms otherwise negative. I did ask patient if she had spoken to her children about possible hospice evaluation. She said her children was still deciding what they wanted to do. She has remained hemodynamically stable. Objective Data Objective Data Vital Signs: Vital Signs Temp Pulse Resp BP Pulse Ox O2 Del Method 97.6 F L 101 H 12 157/78 H 100 Room Air 03/12/24 08:43 03/12/24 08:43 03/12/24 08:43 03/12/24 08:43 03/12/24 08:43 03/12/24 08:43 Oxygen Delivery Method Room Air Weight: 100 lb 8.493 oz Body Mass Index (BMI) 17.2 Intake & Output: Intake and Output for Last 24 Hours 03/10/24 03/11/24 03/12/24 23:59 23:59 23:59 Intake Total 2389.5 / 2389.5 1862.5 / 1912.5 100 / 100 Output Total 940 / 940 400 / 400 Balance 1449.5 / 1449.5 1862.5 / 1612.5 -300 / -300 Medical Nutrition Assessment Dietitian: Malnutrition Criteria Met Start: 03/08/24 15:39 Freq: Status: Active Protocol: Document 03/11/24 15:30 SB (Rec: 03/11/24 15:30 SB [id number]) Nutrition Malnutrition Evidence of Malnutrition Exists Yes Malnutrition (severe): Chronic Evidenced By Weight Loss (Severe),Physical Changes (Severe) Clinical Problem Chronic Disease or Condition Related Malnutrition Etiology severe protein-calorie malnutrition in the context of chronic metastatic disease related to inadequate oral intake, increased energy expenditure, and swallowing difficulty Signs/Symptoms as evidenced by 20% unintentional weight loss x 3 months and severe muscle/fat wasting in the clavicle, face, arms, and legs. Status Active Problem Recommendation Dietitian Recommendations/Changes Continue liberal regular diet per LUNCH WAGON OPERATOR consistency/texture recommendations. Will d/c glucerna shake with medpass and will order to 240ml ensure plus high protein with breakfast and dinner. Will order fortified pudding TID with meals. Will monitor weight trends. Reviewed and approved by Alyx Diaz, MS, RDN, LD. Lab / Micro Data 03/12/24 06:35 03/12/24 06:35 Labs: Laboratory Results - last 24 hr 03/10/24 06:25: Diff Path Review Reviewed 03/11/24 12:42: POC Glucose 163 H 03/11/24 17:31: POC Glucose 181 H 03/12/24 00:08: POC Glucose 144 H 03/12/24 05:41: POC Glucose 125 H 03/12/24 06:35: WBC 18.3 H, RBC 3.68 L, Hgb 9.3 L, Hct 29.9 L, MCV 81.3, MCH 25.3 L, MCHC 31.1 L, RDW Std Deviation 61.5 H, RDW Coeff of Annika 21.1 H, Plt Count 468 H, MPV 9.6, Immature Gran % (Auto) 1.900 H, Neut % (Auto) 84.7 H, L ymph % (Auto) 5.9 L, [place] % (Auto) 5.5, Eos % (Auto) 1.7, Baso % (Auto) 0.3, A bsolute Neuts (auto) 15.5 H, Absolute Lymphs (auto) 1.07, Nucleated RBC % 0, Differential Comment SCANNED, Platelet Estimate SLT INC, Anisocytosis 2+, Microcytosis 1+, Ovalocytes 1+, Schistocytes RARE, Sodium 147 H, Potassium 3.7, Chloride 124 H, Carbon Dioxide 15.0 L, Anion Gap 9, BUN 40 H, Creatinine 1.62 H, Estim Creat Clear Calc 20.60, Est GFR (MDRD) Af Amer 40 L, Est GFR (MDRD) Non-Af 33 L, BUN/Creatinine Ratio 24.7 H, Glucose 136 H, Calcium 8.4 L Micro: Microbiology 03/08/24 15:35 Wound - Sacral Gram Stain - Final 03/08/24 15:35 Wound - Sacral Wound Culture - Final Proteus mirabilis Pseudomonas aeruginosa Enterobacter cloacae complex Enterococcus faecalis 03/08/24 11:50 Urine Catheter - Catheter Urine Culture - Final Pseudomonas aeruginosa Enterococcus faecalis 03/08/24 10:44 Blood Culture (Wb) - Right Wrist Blood Culture - Preliminary No growth in 48 hours. 03/08/24 10:44 Blood Culture (Wb) - Other Blood Culture - Preliminary No growth in 48 hours. 03/08/24 10:25 Mucosa - Nose SARS-CoV-2, Influenza & RSV (PCR) - Final SARS-CoV-2 (COVID 19 PCR) Physical Exam Const alert and oriented x3 Constitutional Narrative: very frail and weak, cachectic, General Appearance: cooperative Orientation / Consciousness: lethargic HEENT normocephalic and head/scalp atraumatic Eyes PERRL, EOMs intact bilaterally and conjunctivae normal Neck no lymphadenopathy and supple Lymph Lymphatic: no lymphadenopathy noted Resp Resp Narrative: mildly diminished breath sounds bibasally, no wheezes or crackles. On room air Cardio regular rate, regular rhythm, S1 normal heart sound, S2 normal heart sound and no murmurs GI normal to inspection, nondistended, normoactive bowel sounds, soft to palpation, non-tender and non-distended Extremity normal to inspection, full ROM, normal capillary refill and no clubbing, cyanosis or edema General Extremity: no tenderness to palpation of joints or extremities Skin Skin Narrative: sacral decubitus ulcer, present on admission. Neuro oriented x3, CN's II-XII intact bilaterally, moves all extremities and no focal motor deficits Motor Exam: general weakness Psych Psych Narrative: very weak and frail. cachectic. Flat affect Mood & Affect: flat affect Assessment & Plan Assessment/Plan (1) LULU (acute kidney injury): (2) Dehydration: (3) Acute UTI: (4) COVID-19: (5) Adult failure to thrive: PLAN: Plan #UTI * Patient admitted with complaint of weakness. She had recently been diagnosed with UTI in a senior living facility and started on oral antibiotics. * Labs done showed elevated WBC of 23.8 so she was sent to the ED. * wbc is further down to 17.3 today. * Urine cultures growing Pseudomonas aeruginosa and Enterococcus faecalis both sensitive to ciprofloxacin so antibiotics narrowed down to ciprofloxacin. * * #Acute on chronic anemia * s/p transfusion of 2 units of PRBCs. * Hemoglobin today is 9.3. * GI consulted; still awaiting recs. I did reach out to GI again today. * she did have EGD on 02/12/2024 which showed eosinophilic esophagitis. * * #LULU with non anion gap acidosis * Baseline creatinine is around 0.74. Cr itoday is 1.62 with bicarb down to 15 and anion gap of 9. * continue hydration with- will switch to LR today in light of the non anion gap acidosis. * Quispe catheter also inserted to monitor urine output * * #Failure to thrive with severe debility in the setting of metastatic breast cancer * Patient is very cachectic and frail. 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 * Patient has severe oropharyngeal thrush as well which limits her ability to eat. She was on oral nystatin swish and swallow but has not been very compliant with this. N * PT OT on board. * On Remeron to help stimulate Appetite * Has had 5 rounds of chemotherapy. * #Hypernatremia: sodium is slightly up to 147 today. Likely due to IVF hydration with NS. Switch to LR toay #Hypokalemia: Potassium is 3.4. Replace and trend. #Sacral decubitus ulcer * present on admission. * Wound cultures growing Proteus, Pseudomonas and Enterobacter as well as Enterococcus. These are all sensitive to ciprofloxacin apart from the Enterococcus. * Switched from IV Zosyn to IV ciprofloxacin. Placed on ampicillin * wound care on board. * #History of eosinophilic esophagitis and oral thrush with candidiasis * Had EGD recently on 01/22/2025 which showed findings consistent with eosinophilic esophagitis and she was treated with nystatin and fluconazole. * On a modified diet due to dysphagia. #COVID-19 infection * On room air. Asymptomatic. Chest x-ray showed no acute cardiopulmonary process. * Will monitor. No need for remdesivir or steroids now she is on room air. * #Hypertension: On enalapril. Hold enalapril due to LULU DVT prophylaxis: SCDs. lovenox dc'd due to acute on chronic anemia COde status: DNRCCA no intubation * * Prognosis: very poor in light of advanced stage IV terminal breast cancer. Family counseled extensively about prognosis and goals of care. Option of hospice discussed with family, namely her son and daughter. We are still waiting for family to make up their minds about whether to opt for hospice or otherwise. Charges/Coding Visit Charges Inpatient E&M: 27759 Subs Hosp L3
[2024-03-12 12:41] VITALS: BP 151/77; PULSE 96; O2SAT 98
[2024-03-12] MEDS: oxyCODONE 5 MG Tablet PO (12:42)
[2024-03-12] MEDS: Ciprofloxacin 400 MG/200 ML BAG 200 MG IV (12:43)
[2024-03-12] MEDS: DAKIN'S SOL HALF STRENGTH (=0.25%) TOPICAL ×2 (13:05→23:15)
[2024-03-12] MEDS: Lactated Ringers 1,000 ML 125 ML IV ×2 (13:26→21:16)
[2024-03-12 13:47] LABS: Bedside Glucose 130 mg/dL (74-106)
[2024-03-12 16:41] VITALS: BP 141/70; PULSE 98; RESP 16; TEMP 36.4; O2SAT 99
[2024-03-12] MEDS: Insulin Lispro 100 UNIT/ML INSULN.PEN SC (16:45)
[2024-03-12 17:16] LABS: Bedside Glucose 176 mg/dL (74-106)
--- NOTE | 2024-03-12 17:34 | EX.PCM.CON.G ---
HPI Consult Data Date of Consult: 03/12/24 HPI Narrative Reason for Consultation: Anemia HPI Narrative: CISCO CORTEZ, is a 78 F who presented to the emergency department via EMS from [facility] for complaint of not feeling well for about 3 days. Patient had some lab work that showed an elevated WBC count and there is concern about dehydration. Patient was also being treated for urinary tract infection. Patient denies vomiting or diarrhea although she said decreased p.o. intake. 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 Her hemoglobin dropped all way down to 5.1. She was transfused 2 units of packed red blood cells and I was called regarding her worsening anemia. She is on aspirin and vitamin C with iron as an outpatient. She underwent an upper endoscopy last month for esophageal dysphagia and was discovered to have eosinophilic esophagitis. Her swallowing is a little bit better but she still has some swallowing difficulties. She is lost approximately 30 pounds. Her BMI is currently 17. Nutrition is very poor and she has a large sacral wound due to immobility. [facility] Medical History Pressure ulcer Hypernatremia Physical debility Psoriasis Diabetic peripheral neuropathy Dermatophytosis Macular degeneration Hypercholesteremia Anemia Metastatic bone tumor Metastatic disease Cancer related pain Hypertension Breast cancer Diabetes Home Medications ?Medication ?Instructions ?Recorded ?Last Taken ?Type aspirin 81 mg chewable tablet 81 mg PO DAILY@0800 prophylaxis 01/01/13 1 Day Ago History ~05/07/16 cyanocobalamin (vitamin B-12) 1,000 mcg PO DAILY vitamin 01/01/13 Unknown History 1,000 mcg/mL oral drops (Vitamin B-12) uovwuxyflthi-Jk-kear-minerals 1 ea PO DAILY wound healing 09/23/17 Unknown History (Multiple Vitamin, Womens tablet) ferrous sulfate 140 mg (45 mg 140 mg PO DAILY SUPPLEMENT 12/14/23 Unknown History iron) tablet,extended release (Slow Release Iron) metformin 1,000 mg tablet 1,000 mg PO BID DM 12/14/23 Unknown History Lactobacillus rhamnosus GG 10 1 cap PO QDAY gut health 01/27/24 Unknown History billion cell capsule (Culturelle) acetaminophen 325 mg chewable 650 mg PO Q4-6H PRN fever or pain 01/27/24 Unknown History tablet aluminum-magnesium hydroxide 225 30 ml PO PRN GI Distress 01/27/24 Unknown History mg-200 mg/5 mL oral suspension ascorbic acid (vitamin C) 500 mg 500 mg PO DAILY wound care 01/27/24 Unknown History capsule bisacodyl 10 mg rectal suppository 10 mg SD ONCE PRN constipation 01/27/24 Unknown History ondansetron HCl 4 mg tablet 4 mg PO Q8H PRN nausea 01/27/24 Unknown History sennosides 8.6 mg-docusate sodium 1 tab-cap PO QHS constipation 01/27/24 Unknown History 50 mg tablet (Senna with Docusate Sodium) enalapril maleate 20 mg tablet 10 mg (1/2 x 20 mg) PO BIDCM BP 30 02/13/24 Unknown Rx days #0 tabs mirtazapine 15 mg tablet (Remeron) 7.5 mg (1/2 x 15 mg) PO QHS 30 02/13/24 Unknown Rx days #0 tabs nystatin 100,000 unit/mL oral 500,000 unit (5 mL) PO 4X/DAY 3 02/13/24 Unknown Rx suspension days #60 mL pantoprazole 40 mg tablet,delayed 40 mg PO BID 30 days #60 tabs 02/13/24 Unknown Rx release (Protonix) acetaminophen 325 mg tablet 650 mg (2 x 325 mg) PO Q6H PRN PRN 02/26/24 Unknown Rx Pain 1-10 Or Fever>100.7 #0 tabs oxycodone 5 mg tablet 5 mg PO Q4H PRN Pain Score 6-10 4 02/26/24 Unknown Rx days #14 tabs acetaminophen 650 mg rectal 650 mg SD Q4H PRN fever or pain 03/08/24 Unknown History suppository dextrose 40 % oral gel (Glucose 20 g PO Q15M PRN hypoglycemia 03/08/24 Unknown History Gel) glucagon HCl 1 mg solution for 1 mg IM Q20M PRN hypoglycemia 03/08/24 Unknown History injection (Glucagon (HCl) Emergency Kit) guaifenesin 100 mg/5 mL oral 200 mg PO Q4H PRN congestion 03/08/24 Unknown History liquid (Adult Tussin Chest Congestion) magnesium hydroxide 400 mg/5 mL 30 ml PO DAILY PRN constipation 03/08/24 Unknown History oral suspension (Milk of Magnesia) melatonin 3 mg capsule 6 mg PO QHS PRN sleep 03/08/24 Unknown History Allergy/AdvReac Type Severity Reaction Status Date / Time acetaminophen (From Vicodin) AdvReac Vomiting Verified 03/08/24 10:08 hydrocodone bitartrate (From AdvReac Vomiting Verified 03/08/24 10:08 Vicodin) Family History Mother Diabetes Father Hypertension Surgical History History of spinal surgery History of coronary artery bypass graft Social History household members: family housing: skilled nursing Smoking Status: Former smoker how long ago did patient quit smoking: Quit > 50 years prior. alcohol intake: never substance use type: does not use ROS Constitutional Constitutional: Reports anorexia, fatigue, malaise and weakness; Denies change in weight, chills or fever(s) Eyes Eyes: Denies change in vision ENT HEENT: Reports sore throat and other Details: sore throat and mouth due to severe oral thrush ; Denies dysphagia or headache(s) Cardiovascular Cardiovascular: Denies chest pain, edema, lightheadedness, orthopnea, palpitations, rapid heart rate or syncope Respiratory/Chest Respiratory/Chest: Denies cough, dyspnea, productive cough, shortness of breath at rest or shortness of breath with exertion Gastrointestinal Gastrointestinal: Denies abdominal pain, nausea or vomiting Genitourinary Genitourinary: Denies burning urination or hematuria Musculoskeletal Musculoskeletal: Denies arthralgias Neurologic Neurologic: Reports confusion; Denies dizziness, focal weakness, headache(s), numbness, seizure-like activity, seizures or syncope Psychiatric Psychiatric: Denies anxiety Hematologic/Lymphatic Hematologic/Lymphatic: Denies anemia Physical Exam Const alert and oriented x3 Constitutional Narrative: Cachectic General Appearance: cooperative Orientation / Consciousness: lethargic HEENT normocephalic and head/scalp atraumatic Eyes PERRL, EOMs intact bilaterally and conjunctivae normal Neck no lymphadenopathy and supple Lymph Lymphatic: no lymphadenopathy noted Resp Resp Narrative: mildly diminished breath sounds bibasally, no wheezes or crackles. On room air Cardio regular rate, regular rhythm, S1 normal heart sound, S2 normal heart sound and no murmurs GI normal to inspection, nondistended, normoactive bowel sounds, soft to palpation, non-tender and non-distended Extremity normal to inspection, full ROM, normal capillary refill and no clubbing, cyanosis or edema General Extremity: no tenderness to palpation of joints or extremities Skin Skin Narrative: sacral decubitus ulcer, present on admission. Neuro oriented x3, CN's II-XII intact bilaterally, moves all extremities and no focal motor deficits Motor Exam: general weakness Psych Psych Narrative: very weak and frail. cachectic. Flat affect Mood & Affect: flat affect Medical Records Data Medical Nutrition Assessment Dietitian: Malnutrition Criteria Met Start: 03/08/24 15:39 Freq: Status: Active Protocol: Document 03/11/24 15:30 SB (Rec: 03/11/24 15:30 SB [id number]) Nutrition Malnutrition Evidence of Malnutrition Exists Yes Malnutrition (severe): Chronic Evidenced By Weight Loss (Severe),Physical Changes (Severe) Clinical Problem Chronic Disease or Condition Related Malnutrition Etiology severe protein-calorie malnutrition in the context of chronic metastatic disease related to inadequate oral intake, increased energy expenditure, and swallowing difficulty Signs/Symptoms as evidenced by 20% unintentional weight loss x 3 months and severe muscle/fat wasting in the clavicle, face, arms, and legs. Status Active Problem Recommendation Dietitian Recommendations/Changes Continue liberal regular diet per SIGN CARPENTER consistency/texture recommendations. Will d/c glucerna shake with medpass and will order to 240ml ensure plus high protein with breakfast and dinner. Will order fortified pudding TID with meals. Will monitor weight trends. Reviewed and approved by Alyx Diaz, , RDN, LD. Lab / Micro Data 03/12/24 06:35 03/12/24 06:35 Labs: Laboratory Results - last 24 hr 03/11/24 17:31: POC Glucose 181 H 03/12/24 00:08: POC Glucose 144 H 03/12/24 05:41: POC Glucose 125 H 03/12/24 06:35: WBC 18.3 H, RBC 3.68 L, Hgb 9.3 L, Hct 29.9 L, MCV 81.3, MCH 25.3 L, MCHC 31.1 L, RDW Std Deviation 61.5 H, RDW Coeff of Annika 21.1 H, Plt Count 468 H, MPV 9.6, Immature Gran % (Auto) 1.900 H, Neut % (Auto) 84.7 H, Lymph % (Auto) 5.9 L, Cooper % (Auto) 5.5, Eos % (Auto) 1.7, Baso % (Auto) 0.3, Absolute Neuts (auto) 15.5 H, Absolute Lymphs (auto) 1.07, Nucleated RBC % 0, Differential Comment SCANNED, Platelet Estimate SLT INC, Anisocytosis 2+, Microcytosis 1+, Ovalocytes 1+, Schistocytes RARE, Sodium 147 H, Potassium 3.7, Chloride 124 H, Carbon Dioxide 15.0 L, Anion Gap 9, BUN 40 H, Creatinine 1.62 H, Estim Creat Clear Calc 20.60, Est GFR (MDRD) Af Amer 40 L, Est GFR (MDRD) Non-Af 33 L, BUN/Creatinine Ratio 24.7 H, Glucose 136 H, Calcium 8.4 L 03/12/24 12:36: POC Glucose 130 H 03/12/24 16:36: POC Glucose 176 H Assessment & Plan Assessment/Plan (1) Adult failure to thrive: (2) Acute dehydration: (3) Physical debility: (4) Metastatic bone tumor: PLAN: Plan Patient is a 78-year-old female with past medical history signal for breast CVA with spinal metastasis who presented [facility] ED in 02/24/2024 with worsening lower extremity weakness and dehydration with abnormal labs. Her hemoglobin dropped all way down to 5.1. Anemia ? Acute on chronic disorder monitoring H&H and she was transfused 2 units of red blood cells. Hemoglobin is currently 9.2. If patient becomes symptomatic or hemoglobin falls below 7. Family deciding on whether they want to put her through an upper or lower endoscopy to discover why she has acute on chronic anemia. Await family decision. Breast cancer with spinal metastasis and severely worsened bilateral lower extremity weakness, acute on chronic debility ? Patient was diagnosed with breast cancer initially back in 2020. Recently diagnosed with T9 extensive spinal metastasis. Underwent 5 rounds of radiation therapy with Dr. Joaquin in January. MRI lumbar spine done back in November that showed no metastatic lesions. Dysphagia with recent diagnosis of eosinophilic esophagitis and oral thrush/candidiasis Patient had EGD done during recent prior hospitalization that showed findings consistent with eosinophilic esophagitis. She was treated with nystatin and fluconazole for oral thrush/candidiasis. She had moderate to severe dysphagia per speech therapy and required a modified diet. Charges/Coding Visit Charges Inpatient E&M: 28473 Init Hosp L3
[2024-03-12 19:50] VITALS: BP 149/72; PULSE 95; RESP 18; TEMP 36.1; O2SAT 95
[2024-03-12] MEDS: Pantoprazole Sodium 40 MG Tablet PO (23:10)
[2024-03-12] MEDS: Senna/Docusate Sodium 1 Tablet PO (23:10)
[2024-03-12] MEDS: AMOXICILLIN 500 MG CAPSULE PO (23:10)
[2024-03-12] MEDS: Mirtazapine 15 MG Tablet 7.5 MG PO (23:10)
[2024-03-12 23:20] VITALS: BP 153/70; PULSE 101; RESP 18; TEMP 36.6; O2SAT 93
[2024-03-13] LABS: Bedside Glucose 118 mg/dL (74-106)
[2024-03-13] MEDS: oxyCODONE 5 MG Tablet PO (03:47)
[2024-03-13 03:50] VITALS: BP 140/58; PULSE 75; RESP 16; TEMP 36.5; O2SAT 99
[2024-03-13 05:44] LABS: Bedside Glucose 106 mg/dL (74-106)
[2024-03-13 07:31] LABS: Absolute Lymphocyte Count 1.34 X10^3/uL (0.83-4.51); Absolute Neutrophil Count 14.3 X10^3/uL (2.0-7.7); Basophil# 0.07 X10^3/uL; Basophil% 0.4 % (0-1); Eosinophils% 2.3 % (0-5); Hematocrit 30.6 % (37-47); Hemoglobin 9.7 g/dL (12.0-15.0); Lymphocyte # 1.34 X10^3/ul (0.83-4.51); Lymphocyte % 7.6 % (19-41); Mean Corp Hgb Conc 31.7 g/dL (32-36); Mean Corpuscular Hgb 25.5 pg (27.0-32.0); Mean Corpuscular Volume 80.3 fL (81-99); Mean Platelet Vol. 9.7 fl (6.2-12.0); Monocyte# 1.08 X10^3/uL; Monocyte% 6.1 % (0-10); NRBC Flagged by Analyzer 0.1 % (0-5); Neutrophil # 14.33 X10^3/uL (2.7-7.7); Neutrophil % 81.6 % (47-70); POSITIVE MORPHOLOGY YES; Platelet Count 466 K/mm3 (150-450); RBC Distribution Width CV 22.2 % (11.6-14.6); RBC Distribution Width SD 62.9 fl (35.1-43.9); Red Blood Count 3.81 M/mm3 (4.2-5.4); White Blood Count 17.6 K/mm3 (4.4-11.0)
[2024-03-13 07:34] LABS: Differential Indicated SCAN CRITERIA MET
[2024-03-13 08:00] LABS: Anion Gap 7 (5-15); BUN 36 mg/dL (7-18); BUN/Creat Ratio 22.8 RATIO (10-20); Calcium,Total 8.3 mg/dL (8.5-10.1); Chloride 124 mmol/L (98-107); Creatinine, Serum 1.58 mg/dL (0.55-1.02); EST Glomerular Filtration Rate 34 mL/min (>60); Est Glom Filt Rate - Afr Amer 41 mL/min (>60); Estimated Creatinine Clearance 21.12 ml/min; Glucose 120 mg/dL (74-106); Potassium 3.5 mmol/L (3.5-5.1); Sodium Level 147 mmol/L (136-145)
[2024-03-13] MEDS: Ascorbic Acid 500 MG Tablet PO (09:08)
[2024-03-13] MEDS: Cyanocobalamin 500 MCG Tablet 1000 MCG PO ×2 (09:08→09:09)
[2024-03-13] MEDS: Ciprofloxacin 400 MG/200 ML BAG 200 MG IV (09:09)
[2024-03-13] MEDS: NYSTATIN 500,000 UNIT/5 ML UDC 500000 UNIT PO ×4 (09:09→20:51)
[2024-03-13] MEDS: Ferrous Sulfate 325 MG Tablet PO (09:10)
[2024-03-13] MEDS: Lisinopril 10 MG Tablet PO ×2 (09:10→17:17)
[2024-03-13] MEDS: Multivitamins,Therapeutic Tablet 1 TABLET PO (09:10)
[2024-03-13] MEDS: Lactobacillis Acidophilus 1 CAP PO (09:10)
[2024-03-13] MEDS: AMOXICILLIN 500 MG CAPSULE PO ×2 (09:10→20:50)
[2024-03-13 09:11] LABS: Anisocytosis 2+; Differential Comment SCANNED; Platelet Estimate SLT INC (ADEQ)
[2024-03-13] MEDS: Aspirin 81 MG TAB.CHEW PO (09:11)
[2024-03-13 09:13] LABS: Ovalocyte 2+
[2024-03-13 09:50] VITALS: BP 141/68; PULSE 76; RESP 15; TEMP 36.2; O2SAT 96
[2024-03-13] MEDS: DAKIN'S SOL HALF STRENGTH (=0.25%) TOPICAL ×2 (11:17→20:51)
[2024-03-13 11:55] LABS: Bedside Glucose 149 mg/dL (74-106)
[2024-03-13] MEDS: Glycerin/Hypromellose/PEG400 15 ml Bottle 2 DRP EACH EYE (12:35)
[2024-03-13] MEDS: Acetaminophen 325 MG Tablet 650 MG PO ×2 (12:36→19:30)
--- NOTE | 2024-03-13 12:45 | PN_ITS ---
Subjective Subjective Patient seen and examined. SHe was lying comfortably in bed. She had no active complaints and only said she hadn't seen her son in several days. She is on room air. Gastroenterology reviewed various the day and different colonoscopy due to concerns about ease of prepping her with the sacral decubitus ulcer. Objective Data Objective Data Vital Signs: Vital Signs Temp Pulse Resp BP Pulse Ox O2 Del Method 97.2 F L 76 15 141/68 H 96 Room Air 03/13/24 09:50 03/13/24 09:50 03/13/24 09:50 03/13/24 09:50 03/13/24 09:50 03/13/24 09:50 Oxygen Delivery Method Room Air Weight: 100 lb 8.493 oz Body Mass Index (BMI) 17.2 Intake & Output: Intake and Output for Last 24 Hours 03/11/24 03/12/24 03/13/24 23:59 23:59 23:59 Intake Total 1862.5 / 1912.5 2099.17 / 2099.17 1200 / 1200 Output Total 1225 / 1225 300 / 300 Balance 1862.5 / 1612.5 874.17 / 874.17 900 / 900 Medical Nutrition Assessment Dietitian: Malnutrition Criteria Met Start: 03/08/24 15:39 Freq: Status: Active Protocol: Document 03/11/24 15:30 SB (Rec: 03/11/24 15:30 SB [id number]) Nutrition Malnutrition Evidence of Malnutrition Exists Yes Malnutrition (severe): Chronic Evidenced By Weight Loss (Severe),Physical Changes (Severe) Clinical Problem Chronic Disease or Condition Related Malnutrition Etiology severe protein-calorie malnutrition in the context of chronic metastatic disease related to inadequate oral intake, increased energy expenditure, and swallowing difficulty Signs/Symptoms as evidenced by 20% unintentional weight loss x 3 months and severe muscle/fat wasting in the clavicle, face, arms, and legs. Status Active Problem Recommendation Dietitian Recommendations/Changes Continue liberal regular diet per DIRECTOR OF PERIOPERATIVE SERVICES consistency/texture recommendations. Will d/c glucerna shake with medpass and will order to 240ml ensure plus high protein with breakfast and dinner. Will order fortified pudding TID with meals. Will monitor weight trends. Reviewed and approved by Alyx Diaz, MS, RDN, LD. Lab / Micro Data 03/13/24 06:38 03/13/24 06:38 Labs: Laboratory Results - last 24 hr 03/12/24 12:36: POC Glucose 130 H 03/12/24 16:36: POC Glucose 176 H 03/12/24 23:14: POC Glucose 118 H 03/13/24 05:22: POC Glucose 106 03/13/24 06:38: WBC 17.6 H, RBC 3.81 L, Hgb 9.7 L, Hct 30.6 L, MCV 80.3 L, MCH 25.5 L, MCHC 31.7 L, RDW Std Deviation 62.9 H, RDW Coeff of Annika 22.2 H, Plt Count 466 H, MPV 9.7, Immature Gran % (Auto) 2.000 H, Neut % (Auto) 81.6 H, L ymph % (Auto) 7.6 L, [place] % (Auto) 6.1, Eos % (Auto) 2.3, Baso % (Auto) 0.4, A bsolute Neuts (auto) 14.3 H, Absolute Lymphs (auto) 1.34, Nucleated RBC % 0.1, Differential Comment SCANNED, Platelet Estimate SLT INC, Anisocytosis 2+, Ovalocytes 2+, Sodium 147 H, Potassium 3.5, Chloride 124 H, Carbon Dioxide 16.0 L, Anion Gap 7, BUN 36 H, Creatinine 1.58 H, Estim Creat Clear Calc 21.12, Est GFR (MDRD) Af Amer 41 L, Est GFR (MDRD) Non-Af 34 L, BUN/Creatinine Ratio 22.8 H , Glucose 120 H, Calcium 8.3 L 03/13/24 11:12: POC Glucose 149 H Micro: Microbiology 03/08/24 15:35 Wound - Sacral Gram Stain - Final 03/08/24 15:35 Wound - Sacral Wound Culture - Final Proteus mirabilis Pseudomonas aeruginosa Enterobacter cloacae complex Enterococcus faecalis 03/08/24 11:50 Urine Catheter - Catheter Urine Culture - Final Pseudomonas aeruginosa Enterococcus faecalis 03/08/24 10:44 Blood Culture (Wb) - Right Wrist Blood Culture - Preliminary No growth in 48 hours. 03/08/24 10:44 Blood Culture (Wb) - Other Blood Culture - Preliminary No growth in 48 hours. 03/08/24 10:25 Mucosa - Nose SARS-CoV-2, Influenza & RSV (PCR) - Final SARS-CoV-2 (COVID 19 PCR) Physical Exam Const alert and oriented x3 Constitutional Narrative: remains very frail and weak, cachectic, General Appearance: cooperative HEENT normocephalic and head/scalp atraumatic Eyes PERRL, EOMs intact bilaterally and conjunctivae normal Neck no lymphadenopathy and supple Lymph Lymphatic: no lymphadenopathy noted Resp Resp Narrative: mildly diminished breath sounds bibasally, no wheezes or crackles. On room air Cardio regular rate, regular rhythm, S1 normal heart sound, S2 normal heart sound and no murmurs GI normal to inspection, nondistended, normoactive bowel sounds, soft to palpation, non-tender and non-distended Extremity normal to inspection, full ROM, normal capillary refill and no clubbing, cyanosis or edema General Extremity: no tenderness to palpation of joints or extremities Skin Skin Narrative: Unstageable sacral decubitus ulcer, present on admission. Neuro oriented x3, CN's II-XII intact bilaterally, moves all extremities and no focal motor deficits Motor Exam: general weakness Psych Psych Narrative: very weak and frail. cachectic. Flat affect Mood & Affect: flat affect Assessment & Plan Assessment/Plan (1) LULU (acute kidney injury): (2) Dehydration: (3) Acute UTI: (4) COVID-19: (5) Adult failure to thrive: PLAN: Plan #UTI * Patient admitted with complaint of weakness. She had recently been diagnosed with UTI in a custodial facility and started on oral antibiotics. * Labs done showed elevated WBC of 23.8 so she was sent to the ED. * wbc is 17.6 today * Urine cultures growing Pseudomonas aeruginosa and Enterococcus faecalis both sensitive to ciprofloxacin so antibiotics narrowed down to ciprofloxacin and amoxicillin based on sensitivities. * * #Acute on chronic anemia * s/p transfusion of 2 units of PRBCs. * Hemoglobin today is 9.7. * GI on board. Per GI patient needs a colonoscopy also hemoglobin dropped all the way down to 5.1. However in light of her unstageable sacral decubitus ulcer, GI is concerned about the colon prep and the feasibility of it. GI therefore defers colonoscopy for now. * she did have EGD on 02/12/2024 which showed eosinophilic esophagitis. * * #LULU with non anion gap acidosis * Baseline creatinine is around 0.74. Cr today is down to 1.58, with bicarb today being 16 and anion gap of 7. * Quispe catheter also inserted to monitor urine output * * #Failure to thrive with severe debility in the setting of metastatic breast cancer * Patient is very cachectic and frail. 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 * Patient has severe oropharyngeal thrush as well which limits her ability to eat. She was on oral nystatin swish and swallow but has not been very compliant with this. N * PT OT on board. * On Remeron to help stimulate Appetite * Has had 5 rounds of chemotherapy. * #Hypernatremia: sodium still remains 147. encourage oral hydration. DID receive D5W. #Hypokalemia:resolved. K is 3.5. #Unstageable Sacral decubitus ulcer * present on admission. * Wound cultures growing Proteus, Pseudomonas and Enterobacter as well as Enterococcus. These are all sensitive to ciprofloxacin apart from the Enterococcus. * Switched from IV Zosyn to IV ciprofloxacin. Also placed on PO amoxicillin. * wound care on board. * #History of eosinophilic esophagitis and oral thrush with candidiasis * Had EGD recently on 01/22/2025 which showed findings consistent with eosinophilic esophagitis and she was treated with nystatin and fluconazole. * On a modified diet due to dysphagia. #COVID-19 infection * On room air. Asymptomatic. Chest x-ray showed no acute cardiopulmonary process. * Will monitor. * No need for remdesivir or steroids now she is on room air. * #Hypertension: On enalapril. Hold enalapril due to LULU DVT prophylaxis: SCDs. lovenox dc'd due to acute on chronic anemia COde status: DNRCCA no intubation * * Prognosis: very poor in light of advanced stage IV terminal breast cancer. Family counseled extensively about prognosis and goals of care. Option of hospice discussed with family, namely her son and daughter. We are still waiting for family to make up their minds about whether to opt for hospice or otherwise. I also called her daughter Iris Jimenez on the phone ([phone]) to discuss GI's recommendation that colonoscopy be held off due to concerns about prep for colonoscopy in light of the unstageable sacral decubitus ulcers. There was no answer, and voicemail message left asking daughter to call us back via the PCU. Charges/Coding Visit Charges Inpatient E&M: 65463 Subs Hosp L3
[2024-03-13 15:50] VITALS: BP 152/71; PULSE 98; RESP 16; TEMP 37.1; O2SAT 100
[2024-03-13 17:51] LABS: Bedside Glucose 148 mg/dL (74-106)
[2024-03-13 20:35] VITALS: BP 154/72; PULSE 97; RESP 16; TEMP 36.7; O2SAT 100
[2024-03-13] MEDS: 0.9% Saline Lock 10 ML Syringe IV (20:46)
[2024-03-13] MEDS: Pantoprazole Sodium 40 MG Tablet PO (20:50)
[2024-03-13] MEDS: Senna/Docusate Sodium 1 Tablet PO (20:51)
[2024-03-13] MEDS: Mirtazapine 15 MG Tablet 7.5 MG PO (20:51)
[2024-03-14] MEDS: Insulin Lispro 100 UNIT/ML INSULN.PEN SC (01:09)
[2024-03-14 01:28] LABS: Bedside Glucose 155 mg/dL (74-106)
[2024-03-14 03:05] VITALS: BP 164/77; PULSE 101; RESP 18; TEMP 36.3; O2SAT 100
[2024-03-14 04:15] VITALS: BP 146/68; PULSE 93; RESP 16; TEMP 36.3; O2SAT 100
[2024-03-14 06:46] LABS: Bedside Glucose 124 mg/dL (74-106)
[2024-03-14 06:47] LABS: Absolute Lymphocyte Count 1.37 X10^3/uL (0.83-4.51); Absolute Neutrophil Count 12.5 X10^3/uL (2.0-7.7); Basophil# 0.08 X10^3/uL; Basophil% 0.5 % (0-1); Eosinophils% 2.5 % (0-5); Hematocrit 30.9 % (37-47); Hemoglobin 9.6 g/dL (12.0-15.0); Lymphocyte # 1.37 X10^3/ul (0.83-4.51); Lymphocyte % 8.6 % (19-41); Mean Corp Hgb Conc 31.1 g/dL (32-36); Mean Corpuscular Hgb 25.3 pg (27.0-32.0); Mean Corpuscular Volume 81.3 fL (81-99); Mean Platelet Vol. 9.6 fl (6.2-12.0); Monocyte# 1.12 X10^3/uL; Monocyte% 7.1 % (0-10); NRBC Flagged by Analyzer 0 % (0-5); Neutrophil # 12.48 X10^3/uL (2.7-7.7); Neutrophil % 78.8 % (47-70); POSITIVE MORPHOLOGY YES; Platelet Count 428 K/mm3 (150-450); RBC Distribution Width CV 22.4 % (11.6-14.6); RBC Distribution Width SD 64.3 fl (35.1-43.9); White Blood Count 15.9 K/mm3 (4.4-11.0)
[2024-03-14 06:50] LABS: Differential Indicated SCAN CRITERIA MET
[2024-03-14 08:06] LABS: Anisocytosis RARE
[2024-03-14 08:07] LABS: Anion Gap 7 (5-15); BUN 32 mg/dL (7-18); BUN/Creat Ratio 22.2 RATIO (10-20); Calcium,Total 8.4 mg/dL (8.5-10.1); Chloride 125 mmol/L (98-107); Creatinine, Serum 1.44 mg/dL (0.55-1.02); EST Glomerular Filtration Rate 37 mL/min (>60); Est Glom Filt Rate - Afr Amer 45 mL/min (>60); Estimated Creatinine Clearance 23.18 ml/min; Glucose 125 mg/dL (74-106); Potassium 3.6 mmol/L (3.5-5.1); Sodium Level 148 mmol/L (136-145)
[2024-03-14] MEDS: DAKIN'S SOL HALF STRENGTH (=0.25%) TOPICAL (08:11)
[2024-03-14] MEDS: Ciprofloxacin 400 MG/200 ML BAG 200 MG IV (08:49)
[2024-03-14] MEDS: Ondansetron 4 MG/2 ML Vial IV (08:57)
--- NOTE | 2024-03-14 08:59 | CASEMGMT ---
Addendum entered by Steffi Brunner 03/14/24 12:28: New precert has been obtained. SW updated. Steffi Brunner DC Planning Asst. Original Note: [facility] had obtained precert but it over the weekend (they did not notify unit). Updates sent for new precert to submit for new precert. Steffi Brunner DC Planning Asst.
[2024-03-14 09:16] VITALS: BP 157/79; PULSE 76; RESP 18; TEMP 36.6; O2SAT 100
[2024-03-14] MEDS: 0.45% Normal Saline 1,000 ML 75 ML IV (10:40)
--- NOTE | 2024-03-14 11:24 | CASEMGMT ---
SW was informed by physician that patient's daughter is interested in talking to Hospice. SW called Hospice and spoke with Ellyn regarding referral. SW also faxed information. Nadya MEDELLIN
[2024-03-14 12:18] LABS: Bedside Glucose 141 mg/dL (74-106)
--- NOTE | 2024-03-14 12:57 | CASEMGMT ---
SW spoke with Hospice and they will be at [facility] today between 2 and 230 to meet with patient and family. MELVIN notified RN, storage battery charger, and physician. Nadya Johnston HELIOTHERAPIST LACIE
[2024-03-14] MEDS: NYSTATIN 500,000 UNIT/5 ML UDC 500000 UNIT PO ×2 (13:57→17:31)
--- NOTE | 2024-03-14 14:04 | CASEMGMT ---
Janet from hospice is at [facility] meeting with family. Nadya MEDELLIN
--- NOTE | 2024-03-14 14:10 | CHAPLAIN ---
Type of Pastoral Visit ___ Initial Visit ___ Follow-up Visit ___ On-call Visit ___ General Patient Visit ___ Spiritual Assessment ___ Family Conference ___ Bereavement ___ Rapid Response ___ Code Blue ___ Other (describe below) Pastoral Care Referral From ___ Patient ___ Family ___ Nurse ___ Physician ___ Anti Tank Missileman ___ Commuter Pilot ___ Other (describe below) Sacrament/Intervention ___ Active listening ___ Anointing ___ Evangelical ___ Bereavement ___ Communion ___ Opal exploration ___ ___ Life review ___ Prayer ___ Reconciliation ___ Sacrament of Sick ___ Supportive presence ___ Wedding ___ Other (describe below) Pastoral Comments hospice evaluation taking place at time of attempted encounter;
--- NOTE | 2024-03-14 15:57 | CASEMGMT ---
Addendum entered by Nadya Johnston 03/14/24 16:02: [facility] Nadya MEDELLIN Original Note: Patient's family signed with hospice. Hospice nurse Janet is working on getting patient to the inpatient hospice unit. Physician notified. Nadya MEDELLIN
--- NOTE | 2024-03-14 15:58 | DS.PCM_ITS ---
Providers Date of Admission: 03/08/24 Date of Discharge: 03/14/24 Primary Care Physician: Dr. Emiliano Pelletier, DO Consultations 03/08/24 15:44 Consult: Onc/Wound/financial sales assistant Routine Comment: Reason for Consult:: sacral wound 03/10/24 14:37 Consult: Gastroenterology Routine Consulting Provider: [facility] Reason for Consult: acute on chronic anemia EMERGENT Consult: No MD Notified: Yes Date Notified: 03/10/24 Time Notified: 14:37 Method of Notification: Text Reason For Visit: UTI, COVID Diagnosis Discharge Diagnosis (1) LULU (acute kidney injury): Status: Acute Code(s): N17.9 - Acute kidney failure, unspecified (2) Dehydration: Status: Acute Code(s): E86.0 - Dehydration (3) Acute UTI: Status: Acute Code(s): N39.0 - Urinary tract infection, site not specified (4) COVID-19: Status: Acute Code(s): U07.1 - COVID-19 (5) Adult failure to thrive: Status: Acute Code(s): R62.7 - Adult failure to thrive Medications at Discharge Home Medications [id number]-[id number]-minerals (Multiple Vitamin, Womens tablet) 1 ea PO DAILY wound healing 09/23/17 ferrous sulfate 140 mg (45 mg iron) tablet,extended release (Slow Release Iron) 140 mg PO DAILY SUPPLEMENT 12/14/23 acetaminophen 325 mg chewable tablet 650 mg PO Q4-6H PRN fever or pain 01/27/24 aluminum-magnesium hydroxide 225 mg-200 mg/5 mL oral suspension 30 ml PO PRN GI Distress 01/27/24 bisacodyl 10 mg rectal suppository 10 mg NM ONCE PRN constipation 01/27/24 ondansetron HCl 4 mg tablet 4 mg PO Q8H PRN nausea 01/27/24 sennosides 8.6 mg-docusate sodium 50 mg tablet (Senna with Docusate Sodium) 1 tab-cap PO QHS constipation 01/27/24 mirtazapine 15 mg tablet (Remeron) 7.5 mg (1/2 x 15 mg) PO QHS 30 days #0 tabs 02/13/24 nystatin 100,000 unit/mL oral suspension 500,000 unit (5 mL) PO 4X/DAY 3 days #60 mL 02/13/24 pantoprazole 40 mg tablet,delayed release (Protonix) 40 mg PO BID 30 days #60 tabs 02/13/24 oxycodone 5 mg tablet 5 mg PO Q4H PRN Pain Score 6-10 4 days #14 tabs 02/26/24 acetaminophen 650 mg rectal suppository 650 mg NM Q4H PRN fever or pain 03/08/24 guaifenesin 100 mg/5 mL oral liquid (Adult Tussin Chest Congestion) 200 mg PO Q4H PRN congestion 03/08/24 magnesium hydroxide 400 mg/5 mL oral suspension (Milk of Magnesia) 30 ml PO DAILY PRN constipation 03/08/24 melatonin 3 mg capsule 6 mg PO QHS PRN sleep 03/08/24 ciprofloxacin HCl 250 mg tablet (Cipro) 250 mg PO .Q18 #4 tabs 03/14/24 linezolid 600 mg tablet 600 mg PO BID #16 tabs 03/14/24 peg [id number] 1 %-0.2 %-0.2 % eye drops (Artificial Tears ([id number])) 2 drp EACH EYE Q1H PRN DRY EYES #0 mL 03/14/24 sodium hypochlorite 0.25 % solution (HySept) 1 applic topical BID #0 mL 03/14/24 Hospital Course Operations None Procedures - (Chest x-ray) Summary of Care Provided Minutes Spent on Discharge: 39 Hospital Course: Mrs. Jimenez is a 78-year-old -[place]ominican female who has a history of metastatic breast CA and was brought to the emergency department on 03/08/2024 from local half-way facility due to abnormal labs. History on admission was obtained from her son. Evidently she had not been feeling well for several days prior to presentation and lab work was done by the half-way facility the day prior to presentation which showed an elevated white count. At that time she had received antibiotics for urinary tract infection for 1 day. Patient denied any fever chills, nausea or vomiting and had no diarrhea. She did have recent surgery to her spine to help stabilize metastatic breast CA and this was done at [facility]. Vital signs on presentation showed temperature of 97.7, heart rate 105, blood pressure was 139/60, respiratory rate was 16, and oxygen saturation was 98% on room air. CBC on presentation showed a leukocytosis with a white count of 23.8, anemia with a hemoglobin of 8.1 and thrombocytosis. Chemistry panel showed normal electrolytes except for elevated chloride at the time of presentation with a serum bicarb of 21, BUN was 41 with a serum creatinine of 1.30 and a BUN/creatinine ratio of 31.5 LFTs were unremarkable. Patient is hypoalbuminemic and her lipase was normal. Chest x-ray was unremarkable other than some hyperinflation and heterogeneous bone appearance which is consistent with her metastatic disease. COVID/flu/RSV was obtained and emergency department and she was positive for COVID-19 on PCR. Blood cultures were drawn and negative at 5 days at the time of discharge. Her urine culture showed Pseudomonas and Enterococcus and a wound culture from her sacral decubitus showed Proteus, Pseudomonas, Enterobacter cloacae and Enterococcus faecalis. She was maintained on renally dosed ciprofloxacin during her hospitalization. During her hospital course she developed guaiac positive stool with a hemoglobin down to 5.1 and was transfused 2 units of packed red blood cells. After transfusion her hemoglobin trended up to 9.2 and was stable at the time of discharge. GI was consulted and felt that she would not tolerate prep well due to her overall debility and her decubitus wound. This was discussed with family and extensive discussion was held with regards to overall prognosis and goals of care. Her daughter is the POA and she discussed this extensively with her brother. I further had a conversation with her on 03/14/2024 with overall prognosis being clear and they wanted to discuss goals of care with hospice. Hospice paperwork was signed on 03/14/2024 and the patient was discharged to the [facility]. She will complete antibiotic course for another 8 days with ciprofloxacin and oral linezolid for her UTI/decubitus ulcer and prescriptions were written. All other medications were tailored to comfort care treatment. Discharge diagnoses: Polymicrobial infection of sacral pressure ulcer Polymicrobial UTI Metastatic breast CA Acute on chronic anemia LULU on CKD stage IIIb Acute COVID-19 infection Generalized weakness and debility Dehydration Failure to thrive Leukocytosis Metabolic acidosis Hypernatremia Hyperchloremia Macular degeneration History of hyperlipidemia History of hypertension History of DM-2 Chronic pain related to metastatic CA History of psoriasis Physical Exam Const alert and no apparent distress; Negative for oriented x3, average body habitus, no limitations, healthy appearing or well nourished Constitutional Narrative: Cachectic, -Dominican, female, lying in bed, daughter at bedside, patient appears chronically ill and debilitated General Appearance: cooperative, comfortable and well kempt Orientation / Consciousness: awake, oriented to person and oriented to place; Negative for oriented to time Nutritional Appearance: cachectic HEENT normocephalic and head/scalp atraumatic; Negative for hearing grossly normal bilaterally or moist oral mucous membranes HEENT Narrative: Significant temporal wasting, mild hearing loss, mucous membranes are slightly dry, Mallampati is 2, no thrush Eyes Negative for conjunctivae normal Eyes Narrative: Mild bilateral conjunctival pallor, no scleral icterus Neck supple Neck Narrative: Trachea midline Resp normal respiratory effort, no retractions, no use of accessory muscles and clear to auscultation bilaterally Auscultation: Negative for rales, rhonchi or wheezes Cardio regular rate, regular rhythm, S1 normal heart sound, S2 normal heart sound, no rub, no gallops and no clicks Cardio Narrative: 3 out of 6 systolic murmur GI normal to inspection, nondistended, normoactive bowel sounds, soft to palpation and non-tender GI Narrative: Scaphoid abdomen Skin skin turgor normal, no jaundice, no petechiae and no mottling Neuro No oriented x3 Neuro Narrative: Severe generalized weakness noted with no specific focal deficits Speech: speech normal Psych Psych Narrative: Appears fatigued, affect is flat but appropriate for the situation, does interact and follow commands consistently Medical Records Data Medical Nutrition Assessment Dietitian: Malnutrition Criteria Met Start: 03/08/24 15:39 Freq: Status: Active Protocol: Document 03/11/24 15:30 SB (Rec: 03/11/24 15:30 [id number]) Nutrition Malnutrition Evidence of Malnutrition Exists Yes Malnutrition (severe): Chronic Evidenced By Weight Loss (Severe),Physical Changes (Severe) Clinical Problem Chronic Disease or Condition Related Malnutrition Etiology severe protein-calorie malnutrition in the context of chronic metastatic disease related to inadequate oral intake, increased energy expenditure, and swallowing difficulty Signs/Symptoms as evidenced by 20% unintentional weight loss x 3 months and severe muscle/fat wasting in the clavicle, face, arms, and legs. Status Active Problem Recommendation Dietitian Recommendations/Changes Continue liberal regular diet per [employer]OL [employer] consistency/texture recommendations. Will d/c glucerna shake with medpass and will order to 240ml ensure plus high protein with breakfast and dinner. Will order fortified pudding TID with meals. Will monitor weight trends. Reviewed and approved by Alyx Diaz, MS, RDN, LD. Weight / BMI Weight Weight: 45.6 kg Body Mass Index (BMI) 17.2 ABG / Lab / Microbiology Data 03/14/24 06:28 03/14/24 06:28 Laboratory: Laboratory Results - last 24 hr 03/13/24 17:16: POC Glucose 148 H 03/14/24 01:07: POC Glucose 155 H 03/14/24 06:27: POC Glucose 124 H 03/14/24 06:28: WBC 15.9 H, RBC 3.80 L, Hgb 9.6 L, Hct 30.9 L, MCV 81.3, MCH 25.3 L, MCHC 31.1 L, RDW Std Deviation 64.3 H, RDW Coeff of Annika 22.4 H, Plt Count 428, MPV 9.6, Immature Gran % (Auto) 2.500 H, Neut % (Auto) 78.8 H, Lymph % (Auto) 8.6 L, Tensas % (Auto) 7.1, Eos % (Auto) 2.5, Baso % (Auto) 0.5, Absolute Neuts (auto) 12.5 H, Absolute Lymphs (auto) 1.37, Nucleated RBC % 0, Anisocytosis RARE, Sodium 148 H, Potassium 3.6, Chloride 125 H, Carbon Dioxide 16.0 L, Anion Gap 7, BUN 32 H, Creatinine 1.44 H, Estim Creat Clear Calc 23.18, Est GFR (MDRD) Af Amer 45 L, Est GFR (MDRD) Non-Af 37 L, BUN/Creatinine Ratio 22.2 H, Glucose 125 H, Calcium 8.4 L 03/14/24 12:00: POC Glucose 141 H Microbiology: Microbiology 03/08/24 10:44 Blood Culture (Wb) - Right Wrist Blood Culture - Final No growth in 5 days. 03/08/24 10:44 Blood Culture (Wb) - Other Blood Culture - Final No growth in 5 days. 03/08/24 15:35 Wound - Sacral Gram Stain - Final 03/08/24 15:35 Wound - Sacral Wound Culture - Final Proteus mirabilis Pseudomonas aeruginosa Enterobacter cloacae complex Enterococcus faecalis 03/08/24 11:50 Urine Catheter - Catheter Urine Culture - Final Pseudomonas aeruginosa Enterococcus faecalis 03/08/24 10:25 Mucosa - Nose SARS-CoV-2, Influenza & RSV (PCR) - Final SARS-CoV-2 (COVID 19 PCR) D/C Instructions Discharge Diet: No restrictions DC O2, CPAP, BIPAP Needs Home O2 Discharge instructions: No Meaningful Use Info Meaningful Use Meaningful Use Diagnoses (Choose all that apply): None applicable Ischemic Stroke Statin Dosing Therapy Reference: STATIN DOSE THERAPY REFERENCE: * Patients > 75 years receive moderate or high dose statin therapy. * Patients 75 years or YOUNGER should receive HIGH intensity statin dose unless contraindicated. You will be required to document reason for non-treatment if statin daily dose does not meet guidelines. HIGH DOSE STATIN THERAPY DAILY Atorvastatin > than or = to 40 mg Rosuvastatin > than or = to 20 mg Amlodipine + Atorvastatin > than or = to 2.5/40 mg Ezetimibe + Simvastatin 10/80 mg Simvastatin 80mg Discharge Plan Admission Admit Date/Time: 03/08/24 13:25 Primary Reason for Your Visit: general malaise Attending Provider: Lalitha Beyer Primary Care Provider: Emiliano Pelletier Consulting Providers: Sandy Tom Discharge Orders/Prescriptions Prescriptions: New HySept 0.25 % Solution 1 applic topical BID Qty: 0 0RF Protocol: *Topical Application Instructions APPLICATION INSTRUCTIONS: sacral wound Artificial Tears([id number]) 1-0.2-0.2 % Drops 2 drp EACH EYE Q1H PRN (Reason: DRY EYES) Qty: 0 0RF linezolid 600 mg tablet 600 mg PO BID Qty: 16 0RF ciprofloxacin HCl [Cipro] 250 mg tablet 250 mg PO .Q18 Qty: 4 0RF Continued ondansetron HCl 4 mg tablet 4 mg PO Q8H PRN (Reason: nausea) sennosides-docusate sodium [Senna with Docusate Sodium] 8.6-50 mg tablet 1 tab-cap PO QHS bisacodyl 10 mg suppository 10 mg NM ONCE PRN (Reason: constipation) aluminum-magnesium hydroxide 225-200 mg/5 mL suspension 30 ml PO PRN acetaminophen 325 mg tablet,chewable 650 mg PO Q4-6H PRN (Reason: fever or pain) oxycodone 5 mg Tablet 5 mg PO Q4H PRN (Reason: Pain Score 6-10) 4 Days Qty: 14 0RF acetaminophen 650 mg suppository 650 mg NM Q4H PRN (Reason: fever or pain) guaifenesin [Adult Tussin Chest Congestion] 100 mg/5 mL liquid 200 mg PO Q4H PRN (Reason: congestion) melatonin 3 mg capsule 6 mg PO QHS PRN (Reason: sleep) magnesium hydroxide [Milk of Magnesia] 400 mg/5 mL suspension 30 ml PO DAILY PRN (Reason: constipation) nystatin 100,000 unit/mL Suspension 500,000 unit PO 4X/DAY 3 Days Qty: 60 0RF mirtazapine [Remeron] 15 mg tablet 7.5 mg PO QHS 30 Days Qty: 0 0RF pantoprazole [Protonix] 40 mg tablet,delayed release (DR/EC) 40 mg PO BID 30 Days Qty: 60 2RF Discontinued Culturelle 10 billion cell capsule 1 cap PO QDAY ascorbic acid (vitamin C) 500 mg capsule 500 mg PO DAILY aspirin 81 MG tablet,chewable 81 mg PO DAILY@0800 Vitamin B-12 1,000 MCG/ML drops 1,000 mcg PO DAILY metformin 1,000 mg tablet 1,000 mg PO BID acetaminophen 325 mg Tablet 650 mg PO Q6H PRN PRN (Reason: Pain 1-10 Or Fever>100.7) Qty: 0 0RF glucagon HCl [Glucagon (HCl) Emergency Kit] 1 mg recon soln 1 mg IM Q20M PRN (Reason: hypoglycemia) Rx Instructions: until target blood sugar attained dextrose [Glucose Gel] 40 % gel 20 g PO Q15M PRN (Reason: hypoglycemia) Rx Instructions: until symptoms of low blood sugar are controlled enalapril maleate 20 mg tablet 10 mg PO BIDCM 30 Days Qty: 0 0RF No Action Multiple Vitamin, Womens 1 EACH tablet 1 ea PO DAILY Slow Release Iron 140 mg (45 mg iron) tablet extended release 140 mg PO DAILY Referrals / Follow Up: Emiliano Pelletier DO [Primary Care Provider] - Disposition Disposition (needs filled in before D/C Order can be placed): Hospice in Medical Facility Charges/Coding Visit Charges Inpatient E&M: 25489 Disch Hosp >30min
[2024-03-14 16:28] VITALS: BP 138/71; PULSE 94; RESP 16; TEMP 36.5; O2SAT 99
[2024-03-14] MEDS: oxyCODONE 5 MG Tablet PO (17:27)
[2024-03-14] MEDS: Lisinopril 10 MG Tablet PO (17:27)
--- NOTE | 2024-03-14 17:42 | NURSING ---
report called to hospice
== END 2024-03-14 17:48 | disposition hospice, inpatient (51) | DRG 689 ==
LOC: ED 12:59 → PCU 13:35
PROVIDERS: Admitting Provider Student in an Organized Health Care Education/Training Program; Emergency Provider Emergency Medicine; PCP Student in an Organized Health Care Education/Training Program; Visit Provider Internal Medicine
DX: N39.0 Urinary tract infection, site not specified (principal); U07.1 COVID-19; E43 Unspecified severe protein-calorie malnutrition; C79.51 Secondary malignant neoplasm of bone; C79.81 Secondary malignant neoplasm of breast; E87.20 Acidosis, unspecified; B37.0 Candidal stomatitis; C22.8 Malignant neoplasm of liver, primary, unspecified as to type; E87.0 Hyperosmolality and hypernatremia; N17.9 Acute kidney failure, unspecified; Z68.1 Body mass index [BMI] 19.9 or less, adult; L89.150 Pressure ulcer of sacral region, unstageable; E11.42 Type 2 diabetes mellitus with diabetic polyneuropathy; I10 Essential (primary) hypertension; D63.0 Anemia in neoplastic disease; L89.159 Pressure ulcer of sacral region, unspecified stage; E86.0 Dehydration; E78.00 Pure hypercholesterolemia, unspecified; K20.0 Eosinophilic esophagitis; E87.6 Hypokalemia; D72.829 Elevated white blood cell count, unspecified; E88.A Wasting disease (syndrome) due to underlying condition; Z66 Do not resuscitate; R62.7 Adult failure to thrive; Z87.891 Personal history of nicotine dependence; Z79.891 Long term (current) use of opiate analgesic; Z79.82 Long term (current) use of aspirin; Z79.84 Long term (current) use of oral hypoglycemic drugs; B96.5 Pseudomonas (aeruginosa) (mallei) (pseudomallei) as the cause of diseases classified elsewhere; Z92.3 Personal history of irradiation; B95.2 Enterococcus as the cause of diseases classified elsewhere; Z88.8 Allergy status to other drugs, medicaments and biological substances